=== PATIENT | male | born 1970 | race American Indian/Alaskan Native ===

== ENCOUNTER 2018-07-08 14:29 | Inpatient (IN) | payer MEDICAID, OTHER ==
[2018-07-08] MEDS ORDERED: Sodium Chloride 0.9% 1,000 ML IV SCH (14:45)
[2018-07-08 14:46] LABS: BASO # 0.03 K/mm3 (0.0-2.0); BASO % 0.2 % (0.0-3.0); EOS # 0.2 (0.0-0.7); EOS % 1.6 % (1.5-5.0); HEMOGLOBIN 13.5 g/dL (14.0-18.0); LYMPH # 5.9 (1.2-3.4); LYMPH % 48.2 % (22.0-35.0); MEAN CELL VOLUME 99.5 fl (80.0-105.0); MEAN CORPUSCULAR HEMOGLOBIN 31.4 pg (25.0-35.0); MEAN CORPUSCULAR HGB CONC 31.5 g/dl (31.0-37.0); MEAN PLATELET VOLUME 10.2 fl (7.0-11.0); MONO # 0.6 (0.1-0.6); MONO % 4.6 % (1.0-6.0); RBC 4.3 10^6/uL (3.5-6.1); RED CELL DISTRIBUTION WIDTH 12.4 % (11.5-14.5); WHITE BLOOD COUNT 12.3 10^3/uL (4.5-11.0)
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
[2018-07-08 14:54] LABS: VENOUS BLOOD GAS BASE EXCESS -19.2 mmol/L (0.0-2.0); VENOUS BLOOD GAS PO2 292 mm/Hg (30-55); VENOUS BLOOD PH 6.98 (7.32-7.43)
[2018-07-08] MEDS ORDERED: Sodium Chloride 0.9% 1,000 ML IV STA ×2 (14:54)
[2018-07-08 14:58] LABS: ALB/GLOB RATIO 1.4 (1.1-1.8); ALBUMIN 4.2 g/dL (3.0-4.8); ALT/SGPT 95 U/L (7-56); AST/SGOT 109 U/L (17-59); BLOOD UREA NITROGEN 14 mg/dL (7-21); CALCIUM 8.7 mg/dL (8.4-10.5); GFR NON-AFRICAN AMERICAN 50; INR 1.12; PARTIAL THROMBOPLASTIN TIME 36.3 Seconds (26.9-38.3); PROTHROMBIN TIME 12.4 SECONDS (9.4-12.5)
[2018-07-08] MEDS ORDERED: Iohexol 350 MG/100 ML VIAL ONE (15:05)
--- NOTE | 2018-07-08 15:05 | RAD ---
Date of service: 07/08/2018 HISTORY: cardiac arrest COMPARISON: No prior. FINDINGS: Endotracheal tube terminates 5 cm proximal to the lenora. LUNGS: The lungs are well inflated. There is confluent airspace disease in both perihilar regions and upper lobes. The lower lobes are relatively spared. PLEURA: No pleural effusions or pneumothorax. CARDIOVASCULAR: The heart is normal in size. No aortic atherosclerotic calcifications present. OSSEOUS STRUCTURES: Within normal limits for the patient's age. VISUALIZED UPPER ABDOMEN: Normal. OTHER FINDINGS: None. IMPRESSION: Endotracheal tube terminates 5 cm proximal to the lenora. Confluent airspace disease in the perihilar regions and both upper lobes most compatible with pulmonary edema.
[2018-07-08 15:08] LABS: TROPONIN I 0.06 ng/mL
--- NOTE | 2018-07-08 15:37 | CT ---
Date of service: 07/08/2018 PROCEDURE: CT HEAD WITHOUT CONTRAST. HISTORY: cardiac arrest COMPARISON: None available. TECHNIQUE: Axial computed tomography images were obtained through the head/brain without intravenous contrast. Radiation dose: Total exam DLP = 1648.94 mGy-cm. This CT exam was performed using one or more of the following dose reduction techniques: Automated exposure control, adjustment of the mA and/or kV according to patient size, and/or use of iterative reconstruction technique. FINDINGS: HEMORRHAGE: No intracranial hemorrhage. BRAIN: Examination is of suboptimal diagnostic quality due to extensive beam hardening artifacts and patient motion. There is no mass, mass effect or abnormal extra-axial fluid collection. There is no territorial infarction. The midline sagittal structures are normal. VENTRICLES: The ventricles are normal in size, shape and configuration. CALVARIUM: There is no calvarial fracture or extracranial soft tissue swelling. PARANASAL SINUSES: Predominantly clear. MASTOID AIR CELLS: Predominantly clear. OTHER FINDINGS: None. IMPRESSION: Suboptimal diagnostic quality due to extensive beam hardening artifacts patient motion. Allowing for this, no acute intracranial abnormality.
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
[2018-07-08 15:47] LABS: URINE BILIRUBIN NEGATIVE (NEGATIVE); URINE BLOOD LARGE (NEGATIVE); URINE GLUCOSE (UA) 100 mg/dL (NEGATIVE); URINE LEUKOCYTE ESTERASE NEGATIVE Leu/uL (NEGATIVE); URINE PROTEIN >=300 mg/dL (<30 mg/dL); URINE UROBILINOGEN 0.2 E.U./dL (<1 E.U./dL)
[2018-07-08 15:51] LABS: URINE APPEARANCE CLEAR (CLEAR); URINE COLOR YELLOW (YELLOW)
[2018-07-08] MEDS ORDERED: Cefepime IV 2 gm in NS 2 GM/100 ML BAG IVPB STA (15:51)
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
[2018-07-08 15:57] LABS: BARBITURATES, UR NEGATIVE (NEGATIVE); BENZODIAZEPINES, UR NEGATIVE (NEGATIVE); OPIATES, UR POSITIVE (NEGATIVE); PHENCYCLIDINE, UR NEGATIVE (NEGATIVE)
[2018-07-08 16:03] LABS: URINE BACTERIA LARGE /hpf; URINE EPITHELIAL CELLS 0 - 2 /hpf (0-5); URINE RBC TNTC /hpf (0-2)
--- NOTE | 2018-07-08 16:25 | RAD ---
Date of service: 07/08/2018 HISTORY: tube placement COMPARISON: 07/08/2018 at 2:42 p.m. FINDINGS: Endotracheal tube terminates in the mid trachea. The nasogastric tube terminates at the GE junction. LUNGS: The lungs are well inflated. There is interval mild improved aeration in the lungs. There is redemonstration of confluent perihilar airspace disease. PLEURA: No pleural effusions or pneumothorax. CARDIOVASCULAR: The heart is normal in size. No aortic atherosclerotic calcifications present. OSSEOUS STRUCTURES: Within normal limits for the patient's age. VISUALIZED UPPER ABDOMEN: Normal. OTHER FINDINGS: None. IMPRESSION: Nasogastric tube likely terminates at the GE junction. Further advancement is recommended. Endotracheal tube terminates in the mid trachea. Interval mild improved aeration in the lungs with persistent perihilar airspace disease which may represent pulmonary edema or aspiration pneumonia.
--- NOTE | 2018-07-08 16:31 | CP.PCM.HP ---
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 Evaluation PT INR APTT 69.1 H pCO2 pO2 HCO3 ABG pH ABG Total CO2 ABG O2 Saturation ABG Base Excess ABG Potassium VBG pH VBG pCO2 VBG HCO3 VBG Total CO2 VBG O2 Sat (Calc) VBG Base Excess VBG Potassium Glucose Lactate Mechanical Rate FiO2 Tidal Volume PEEP Crit Value Called To Crit Value Called By Blood Gas Notified Time Sodium 141 Potassium 3.2 L Chloride 99 Carbon Dioxide 31 Anion Gap 14 BUN 16 Creatinine 0.9 Est GFR ( Amer) > 60 Est GFR (Non-Af Amer) > 60 POC Glucose (mg/dL) 143 H Random Glucose 133 H Hemoglobin A1c Calcium 8.3 L Phosphorus 2.3 L Magnesium 2.3 H Total Bilirubin 0.6 AST 265 H D ALT 132 H Alkaline Phosphatase 92 Troponin I NT-Pro-B Natriuret Pep Total Protein 7.5 Albumin 4.2 Globulin 3.3 Albumin/Globulin Ratio 1.3 Triglycerides Cholesterol LDL Cholesterol Direct HDL Cholesterol Thyroxine (T4) TSH 3rd Generation Arterial Blood Potassium Venous Blood Potassium Urine Color Urine Appearance Urine pH Ur Specific [place] Urine Protein Urine Glucose (UA) Urine Ketones Urine Blood Urine Nitrate Urine Bilirubin Urine Urobilinogen Ur Leukocyte Esterase Urine RBC Urine WBC Ur Epithelial Cells Urine Bacteria Urine Opiates Screen Urine Methadone Screen Ur Barbiturates Screen Ur Phencyclidine Scrn Ur Amphetamines Screen U Benzodiazepines Scrn U Oth Cocaine Metabols U Cannabinoids Screen Alcohol, Quantitative Blood Type Blood Type Confirm Antibody Screen BBK History Checked 07/09/18 07/09/18 09:40 10:15 WBC 27.2 H* RBC 4.60 Hgb 14.5 Hct 43.2 MCV 93.9 MCH 31.5 MCHC 33.6 RDW 12.3 Plt Count 161 MPV 9.9 Neut % (Auto) 91.9 H Lymph % (Auto) 4.2 L [place] % (Auto) 3.9 Eos % (Auto) 0.0 L Baso % (Auto) 0.0 Lymph # (Auto) 1.2 [place] # (Auto) 1.1 H Eos # (Auto) 0.0 Baso # (Auto) 0.00 Absolute Neuts (auto) 24.96 H Neutrophils % (Manual) Band Neutrophils % Lymphocytes % (Manual) Monocytes % (Manual) Metamyelocytes % Platelet Evaluation PT INR APTT pCO2 39 pO2 121.0 H HCO3 26.5 ABG pH 7.44 ABG Total CO2 27.7 ABG O2 Saturation 100.1 H ABG Base Excess 2.3 ABG Potassium 3.1 L VBG pH VBG pCO2 VBG HCO3 VBG Total CO2 VBG O2 Sat (Calc) VBG Base Excess VBG Potassium Glucose 121 H Lactate 1.6 Mechanical Rate FiO2 80.0 Tidal Volume PEEP Crit Value Called To Crit Value Called By Blood Gas Notified Time Sodium 140.0 Potassium Chloride 105.0 Carbon Dioxide Anion Gap BUN Creatinine Est GFR ( Amer) Est GFR (Non-Af Amer) POC Glucose (mg/dL) Random Glucose Hemoglobin A1c Calcium Phosphorus Magnesium Total Bilirubin AST ALT Alkaline Phosphatase Troponin I NT-Pro-B Natriuret Pep Total Protein Albumin Globulin Albumin/Globulin Ratio Triglycerides Cholesterol LDL Cholesterol Direct HDL Cholesterol Thyroxine (T4) TSH 3rd Generation Arterial Blood Potassium 3.1 L Venous Blood Potassium Urine Color Urine Appearance Urine pH Ur Specific [place] Urine Protein Urine Glucose (UA) Urine Ketones Urine Blood Urine Nitrate Urine Bilirubin Urine Urobilinogen Ur Leukocyte Esterase Urine RBC Urine WBC Ur Epithelial Cells Urine Bacteria Urine Opiates Screen Urine Methadone Screen Ur Barbiturates Screen Ur Phencyclidine Scrn Ur Amphetamines Screen U Benzodiazepines Scrn U Oth Cocaine Metabols U Cannabinoids Screen Alcohol, Quantitative Blood Type Blood Type Confirm Antibody Screen BBK History Checked Attending/Attestation - Attestation I have personally seen and examined this patient.: Yes I have fully participated in the care of the patient.: Yes I have reviewed all pertinent clinical information: Yes Notes (Text): 07/09/18 12:09 Attending note; Patient seen and examined with resident and ER. Patient is currently intubated. History from the ER attending and chart review. Patient is a 48 year old male presented to the emergency department, with unknown past medical history brought in by ambulance after a witnessed cardiac arrest with ventricular fibrillation. 1. Status Post cardiac arrest; and is currently intubated. Patient had episodes of V. fib and cardioverted. Currently with sinus rhythm. Started on amiodarone drip. Case discussed with resident care aid in detail. Started on IV heparin drip. head CT is negative for acute findings. CT cervical spine is negative for acute fracture. CT abdomen and pelvis showed bilateral infiltrates suggesting aspiration pneumonitis and pleural effusion. Mildly distended colon noted. 2. VF/ Arrhythmia; currently patient is normal sinus rhythm. Continue amiodarone drip and heparin drip. 3. Status post intubation; weaning parameters as per ICU. 4. Urine drug screen is positive for opiates and cannabis. 5. leukocytosis; mostly secondary to aspiration pneumonia. Started on cefepime and vancomycin . Monitor closely. Cultures ordered. Monitor patient closely in ICU.
[2018-07-08] MEDS ORDERED: Vancomycin 1gm in NS 250ml 1 GM/250 ML BAG IVPB STA (16:34)
[2018-07-08] MEDS ORDERED: Amiodarone 150 mg/D5W 100 ml 150 MG/100 ML BAG IVPB ONE (16:42)
[2018-07-08] MEDS ORDERED: Heparin25000 units/250ml 1/2NS 25,000 UNITS/250 ML BAG IV SCH ×3 (16:45→23:17)
[2018-07-08 16:58] VITALS: BMI 25.7
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
[2018-07-08] MEDS: Amiodarone 360 mg/D5W 200 ml 360 MG/200 ML BAG IV SCH ×2 (17:33→23:30)
[2018-07-08] MEDS: Propofol 10 mg/ml 1,000 MG/100 ML VIAL IV PRN ×2 (17:34→21:36)
[2018-07-08 18:05] LABS: ARTERIAL BLOOD GAS O2 SAT 99.9 % (95-98); ARTERIAL BLOOD GAS PCO2 46 mm/Hg (35-45); ARTERIAL BLOOD GAS PH 7.36 (7.35-7.45); ARTERIAL BLOOD GAS TCO2 27.4 mmol.L (22-28)
[2018-07-08 18:38] LABS: HDL CHOLESTEROL 85 mg/dL (29-60)
[2018-07-08 18:48] LABS: LDL CHOLESTEROL 84 mg/dL (0-129)
[2018-07-08] MEDS ORDERED: Cisatracurium 200 MG in Sodium Chloride 0.9% 500 ML IV ONE ×2 (18:58→19:55)
[2018-07-08] MEDS ORDERED: White Petrolatum Ophth Oint (Puralube) OU PRN (18:58)
--- NOTE | 2018-07-08 20:19 | CARD ---
APPROVED REPORT Date of service: 07/08/2018 EKG Measurement Heart [id number] <Conclusion> Normal sinus rhythm Intraventricular conduction delay of RBBB type Nonspecific T wave abnormality Abnormal ECG
--- NOTE | 2018-07-08 20:27 | CARD ---
APPROVED REPORT Date of service: 07/08/2018 EKG Measurement Heart [id number] [id number] <Conclusion> Low atrial or junctional rhythm Left axis deviation Nonspecific T wave abnormality Prolonged QT Abnormal ECG
[2018-07-08] MEDS: Fentanyl 1000mcg/100ml NS 1,000 MCG/100 ML BAG IV PRN (21:38)
[2018-07-08 22:11] LABS: BASO # 0.01 K/mm3 (0.0-2.0); HEMOGLOBIN 14.4 g/dL (14.0-18.0); LYMPH # 0.7 (1.2-3.4); LYMPH % 2.8 % (22.0-35.0); MEAN CELL VOLUME 94.5 fl (80.0-105.0); MEAN CORPUSCULAR HEMOGLOBIN 31.6 pg (25.0-35.0); MEAN CORPUSCULAR HGB CONC 33.4 g/dl (31.0-37.0); MONO # 1.2 (0.1-0.6); MONO % 4.6 % (1.0-6.0); PLATELET COUNT 185 10^3/uL (120.0-450.0); RBC 4.56 10^6/uL (3.5-6.1); RED CELL DISTRIBUTION WIDTH 12.3 % (11.5-14.5)
[2018-07-08 22:14] LABS: WHITE BLOOD COUNT 25.4 10^3/uL (4.5-11.0)
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
[2018-07-08 22:28] LABS: BAND 4 % (0-2); LYMPHOCYTE 1 % (22.0-35.0); METAMYELOCYTE 1 %; MONOCYTE 1 % (1.0-6.0); NEUTROPHIL 93 % (50.0-70.0); VENOUS BLOOD GAS BASE EXCESS 0.6 mmol/L (0.0-2.0); VENOUS BLOOD GAS PO2 53 mm/Hg (30-55); VENOUS BLOOD PH 7.33 (7.32-7.43)
[2018-07-08 22:29] LABS: PLATELET ESTIMATE NORMAL (NORMAL)
[2018-07-08 22:34] LABS: ALB/GLOB RATIO 1.3 (1.1-1.8); ALBUMIN 4.1 g/dL (3.0-4.8); ALT/SGPT 119 U/L (7-56); AST/SGOT 214 U/L (17-59); BLOOD UREA NITROGEN 16 mg/dL (7-21); GFR NON-AFRICAN AMERICAN > 60
[2018-07-08] MEDS: Heparin25000 units/250ml 1/2NS 25,000 UNITS/250 ML BAG IV SCH (22:35)
[2018-07-08 22:52] LABS: TROPONIN I 9.05 ng/mL
[2018-07-08] MEDS: Cefepime IV 2 gm in NS 2 GM/100 ML BAG IVPB SCH (23:30)
[2018-07-08 23:59] LABS: ARTERIAL BLOOD GAS HCO3 28.5 mmol/L (21-28); ARTERIAL BLOOD GAS O2 SAT 99.6 % (95-98); ARTERIAL BLOOD GAS PCO2 45 mm/Hg (35-45); ARTERIAL BLOOD GAS PH 7.41 (7.35-7.45); ARTERIAL BLOOD GAS TCO2 29.9 mmol.L (22-28)
[2018-07-09 01:48] LABS: VENOUS BLOOD GAS BASE EXCESS 1.6 mmol/L (0.0-2.0); VENOUS BLOOD GAS PO2 45 mm/Hg (30-55)
[2018-07-09] MEDS: Amiodarone 360 mg/D5W 200 ml 360 MG/200 ML BAG IV SCH ×2 (05:20→17:56)
[2018-07-09] MEDS: Propofol 10 mg/ml 1,000 MG/100 ML VIAL IV PRN ×2 (05:24→11:43)
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
[2018-07-09 07:50] LABS: ALB/GLOB RATIO 1.3 (1.1-1.8); ALBUMIN 4.2 g/dL (3.0-4.8); ALT/SGPT 132 U/L (7-56); AST/SGOT 265 U/L (17-59); BLOOD UREA NITROGEN 16 mg/dL (7-21); CALCIUM 8.3 mg/dL (8.4-10.5); GFR NON-AFRICAN AMERICAN > 60
[2018-07-09] MEDS ORDERED: Lubricant Eye Drops UD OU PRN (09:09)
[2018-07-09] MEDS ORDERED: Potassium Phosphate 15 MMOLE in Sodium Chloride 0.9% 250 ML IVPB ONE (09:15)
--- NOTE | 2018-07-09 09:36 | RAD ---
Date of service: 07/09/2018 HISTORY: intubated COMPARISON: 07/08/2018 TECHNIQUE: 1 view obtained. FINDINGS: LUNGS: There is dense consolidation in the right upper lobe consistent with pneumonia or lobar atelectasis. PLEURA: No significant pleural effusion identified, no pneumothorax apparent. CARDIOVASCULAR: No aortic atherosclerotic calcification present. Mild cardiomegaly no pulmonary vascular congestion. OSSEOUS STRUCTURES: No significant abnormalities. VISUALIZED UPPER ABDOMEN: Normal. OTHER FINDINGS: Endotracheal tube and nasogastric tube in satisfactory position IMPRESSION: There is dense consolidation in the right upper lobe consistent with pneumonia or lobar atelectasis.
[2018-07-09] MEDS: Cefepime IV 2 gm in NS 2 GM/100 ML BAG IVPB SCH ×2 (09:44→22:09)
[2018-07-09 09:46] LABS: ARTERIAL BLOOD GAS HCO3 26.5 mmol/L (21-28); ARTERIAL BLOOD GAS O2 SAT 100.1 % (95-98); ARTERIAL BLOOD GAS PCO2 39 mm/Hg (35-45); ARTERIAL BLOOD GAS PH 7.44 (7.35-7.45); ARTERIAL BLOOD GAS TCO2 27.7 mmol.L (22-28)
--- NOTE | 2018-07-09 09:49 | CP.CCUPN ---
<Parrish Garibay - Last Filed: 07/09/18 12:16> CCU Subjective - Physician Review Subjective (Free Text): Parrish Garibay DO, PGY-1 MICU Progress Note for Dr. Emily Boone Patient was seen and examined at bedside this AM. He remains intubated, sedated on propofol and fentanyl drips. Hypothermia protocol was initiated immediately upon arrival to MICU yesterday evening and Temp has been maintained at 91-92 overnight. He remains on amiodarone and heparin drips. CCU Objective - Vital Signs / Intake & Output Vital Signs (Last 4 hours): Vital Signs Temp Pulse BP Pulse Ox 07/09/18 09:10 91.9 F L 60 99 07/09/18 09:00 91.8 F L 62 134/100 H 100 07/09/18 08:50 91.8 F L 59 L 100 07/09/18 08:45 91.8 F L 61 132/81 100 07/09/18 08:40 91.6 F L 60 100 07/09/18 08:30 91.6 F L 59 L 141/65 99 07/09/18 08:20 91.6 F L 60 100 07/09/18 08:15 91.6 F L 60 134/99 H 99 07/09/18 08:10 91.6 F L 64 100 07/09/18 08:00 91.6 F L 57 L 133/99 H 100 07/09/18 07:50 91.4 F L 58 L 100 07/09/18 07:45 91.4 F L 60 134/90 99 07/09/18 07:40 91.4 F L 59 L 99 07/09/18 07:30 91.4 F L 60 130/94 H 100 07/09/18 07:20 91.4 F L 59 L 100 07/09/18 07:15 91.4 F L 66 143/106 H 100 07/09/18 07:10 91.4 F L 61 100 07/09/18 07:00 91.2 F L 62 143/109 H 100 07/09/18 06:50 91.2 F L 60 99 07/09/18 06:45 91.2 F L 64 143/112 H 100 07/09/18 06:40 91.2 F L 61 100 07/09/18 06:30 91.2 F L 61 139/108 H 100 07/09/18 06:20 91.2 F L 60 100 07/09/18 06:15 91.2 F L 56 L 142/106 H 100 07/09/18 06:10 91.2 F L 58 L 100 07/09/18 06:00 91.2 F L 64 139/105 H 100 07/09/18 05:50 91.2 F L 69 98 Intake and Output (Last 8hrs): Intake & Output 07/08/18 07/09/18 07/09/18 22:59 06:59 14:59 Intake Total 470 1500 80 Output Total 2750 600 Balance -2280 900 80 Weight 168 lb 12.8 oz 168 lb Intake: IV 470 1500 80 Right Hand 370 1350 Output: Gastric Amount 600 Right Nares 600 Urine 2750 Urethral (Parr) 2750 Stool 0 Other: # Bowel Movements 2 0 - Physical Exam Physical Exam Limitations: Positive for: Clinical Condition Head: Positive for: Atraumatic, Normocephalic Pupils: Positive for: Sluggish, Pinpoint Extroacular Muscles: Positive for: EOMI Mouth: Positive for: Moist Mucous Membranes Nose (External): Positive for: Atraumatic Neck: Negative for: Lymphadenopathy, Bruit Respiratory/Chest: Positive for: Decreased Breath Sounds (RUL), Rales (coarse breath sounds and crackles over RUL), Rhonchi, Other (on ventilator, breath sounds auscultated b/l). Negative for: Wheezes Cardiovascular: Positive for: Regular Rate and Rhythm, Normal S1, S2. Negative for: Murmurs, Rub, Gallop Abdomen: Negative for: Distention, Guarding Genitourinary Male: Positive for: Normal External Genitalia, Circumcised Penis, Other (parr in place) Upper Extremity: Positive for: Capillary Refill < 2s. Negative for: Cyanosis, Edema, Erythema Lower Extremity: Positive for: Capillary Refill < 2 s. Negative for: Edema Neurological: Positive for: Other (GCS 4, opens eyes to painful stimuli but does not otherwise move) Skin: Positive for: Warm, Dry Psychiatric: Positive for: Other (intubated, sedated, on nimbex) - Medications Active Medications: Active Medications Generic Name Dose Route Start Last Admin Trade Name Freq PRN Reason Stop Dose Admin Artificial Tears 1 appl 07/08/18 18:58 Puralube Opht Oint OU Q4H PRN Dry eyes Artificial Tears 0.3 ml 07/09/18 09:09 Refresh Opth Soln OU Q4H PRN Dry eyes Famotidine 20 mg 07/09/18 10:00 07/09/18 09:43 Pepcid IVP 20 mg DAILY RITA Administration Fentanyl Citrate 1,000 mcg in 100 mls @ 2 mls/hr 07/08/18 16:37 07/09/18 09:02 Fentanyl Citrate/Sodium Chloride 1 Mg/100 Ml IV 60 mcg/hr .Q24H PRN 6 mls/hr TITRATE PER MD ORDER Titration Protocol 20 MCG/HR Propofol 1,000 mg in 100 mls @ 2.245 mls/hr 07/08/18 16:37 07/09/18 05:24 Diprivan IV 35 mcg/kg/min .Q24H PRN 15.717 mls/hr TITRATE PER MD ORDER Administration Protocol 5 MCG/KG/MIN Cefepime HCl 2 gm in 100 mls @ 100 mls/hr 07/08/18 23:00 07/09/18 09:44 Maxipime 2gm IVPB 07/13/18 23:01 100 mls/hr Q12 RITA Administration Protocol Heparin Sodium/Sodium Chloride 25,000 units in 250 mls @ 8.981 mls/hr 07/08/18 23:37 07/08/18 23:25 Heparin 23785 Units/250ml 1/2 Normal Saline IV 9 units/kg/hr .Q24H RITA 6.736 mls/hr Titration Protocol 12 UNITS/KG/HR Amiodarone HCl/Dextrose 360 mg in 200 mls @ 16.667 mls/hr 07/08/18 23:30 07/08/18 23:30 Nexterone 360 Mg In D5w 200 Ml (Premix) IV 16.667 mls/hr .Q12H RITA Administration Protocol 0.5 MG/MIN Cisatracurium Besylate 200 mg/ 200 mls @ 2.3 mls/hr 07/09/18 07:07 07/09/18 07:36 Sodium Chloride IV 0.5 mcg/kg/min .Q24H PRN 2.3 mls/hr TITRATE PER MD ORDER Administration Protocol 0.5 MCG/KG/MIN Potassium Phosphate 15 mmole/ 255 mls @ 42.5 mls/hr 07/09/18 09:15 Sodium Chloride IVPB 07/09/18 15:14 ONCE ONE - Patient Studies Lab Studies: Lab Studies 07/09/18 07/09/18 07/09/18 Range/Units 05:42 05:20 05:20 WBC (4.5-11.0) 10^3/uL RBC (3.5-6.1) 10^6/uL Hgb (14.0-18.0) g/dL Hct (42.0-52.0) % MCV (80.0-105.0) fl MCH (25.0-35.0) pg MCHC (31.0-37.0) g/dl RDW (11.5-14.5) % Plt Count (120.0-450.0) 10^3/uL MPV (7.0-11.0) fl Neut % (Auto) (50.0-68.0) % Lymph % (Auto) (22.0-35.0) % [place]a % (Auto) (1.0-6.0) % Eos % (Auto) (1.5-5.0) % Baso % (Auto) (0.0-3.0) % Lymph # (Auto) (1.2-3.4) [place] # (Auto) (0.1-0.6) Eos # (Auto) (0.0-0.7) Baso # (Auto) (0.0-2.0) K/mm3 Absolute Neuts (auto) (1.4-6.5) Neutrophils % (Manual) (50.0-70.0) % Band Neutrophils % (0-2) % Lymphocytes % (Manual) (22.0-35.0) % Monocytes % (Manual) (1.0-6.0) % Metamyelocytes % % Platelet Evaluation (NORMAL) PT (9.4-12.5) SECONDS INR APTT 69.1 H (26.9-38.3) Seconds pCO2 (35-45) mm/Hg pO2 (30-55) mm/Hg HCO3 (21-28) mmol/L ABG pH (7.35-7.45) ABG Total CO2 (22-28) mmol.L ABG O2 Saturation (95-98) % ABG Base Excess (-2.0-3.0) mmol/L ABG Potassium (3.6-5.2) mmol/L VBG pH (7.32-7.43) VBG pCO2 (40-60) VBG HCO3 (21-28) mmol/l VBG Total CO2 (22-28) mmol.L VBG O2 Sat (Calc) (40-65) % VBG Base Excess (0.0-2.0) mmol/L VBG Potassium (3.6-5.2) mmol/L Glucose (75-110) mg/dl Lactate (0.7-2.1) mmol/L Mechanical Rate FiO2 % Tidal Volume PEEP Crit Value Called To Crit Value Called By Blood Gas Notified Time Sodium 141 (132-148) mmol/L Potassium 3.2 L (3.6-5.0) mmol/L Chloride 99 (98-107) mmol/L Carbon Dioxide 31 (21-33) mmol/L Anion Gap 14 (10-20) BUN 16 (7-21) mg/dL Creatinine 0.9 (0.8-1.5) mg/dl Est GFR ( Amer) > 60 Est GFR (Non-Af Amer) > 60 POC Glucose (mg/dL) 143 H (65-110) mg/dL Random Glucose 133 H (70-110) mg/dL Hemoglobin A1c (4.2-6.5) % Calcium 8.3 L (8.4-10.5) mg/dL Phosphorus 2.3 L (2.5-4.5) mg/dL Magnesium 2.3 H (1.7-2.2) mg/dL Total Bilirubin 0.6 (0.2-1.3) mg/dL AST 265 H D (17-59) U/L ALT 132 H (7-56) U/L Alkaline Phosphatase 92 (38-126) U/L Troponin I ng/mL NT-Pro-B Natriuret Pep (0-450) pg/mL Total Protein 7.5 (5.8-8.3) g/dL Albumin 4.2 (3.0-4.8) g/dL Globulin 3.3 gm/dL Albumin/Globulin Ratio 1.3 (1.1-1.8) Triglycerides (35-160) mg/dL Cholesterol (130-200) mg/dL LDL Cholesterol Direct (0-129) mg/dL HDL Cholesterol (29-60) mg/dL Thyroxine (T4) (5.5-11.0) ug/dL TSH 3rd Generation (0.46-4.68) mIU/mL Arterial Blood Potassium (3.6-5.2) mmol/L Venous Blood Potassium (3.6-5.2) mmol/L Urine Color (YELLOW) Urine Appearance (CLEAR) Urine pH (4.7-8.0) Ur Specific [place] (1.005-1.035) Urine Protein (<30 mg/dL) mg/dL Urine Glucose (UA) (NEGATIVE) mg/dL Urine Ketones (NEGATIVE) mg/dL Urine Blood (NEGATIVE) Urine Nitrate (NEGATIVE) Urine Bilirubin (NEGATIVE) Urine Urobilinogen (<1 E.U./dL) E.U./dL Ur Leukocyte Esterase (NEGATIVE) Alvino/uL Urine RBC (0-2) /hpf Urine WBC (0-6) /hpf Ur Epithelial Cells (0-5) /hpf Urine Bacteria (NONE) /hpf Urine Opiates Screen (NEGATIVE) Urine Methadone Screen (NEGATIVE) Ur Barbiturates Screen (NEGATIVE) Ur Phencyclidine Scrn (NEGATIVE) Ur Amphetamines Screen (NEGATIVE) U Benzodiazepines Scrn (NEGATIVE) U Oth Cocaine Metabols (NEGATIVE) U Cannabinoids Screen (NEGATIVE) Alcohol, Quantitative (0-10) mg/dL Blood Type Blood Type Confirm Antibody Screen BBK History Checked 07/09/18 07/09/18 07/08/18 Range/Units 01:30 01:30 23:48 WBC (4.5-11.0) 10^3/uL RBC (3.5-6.1) 10^6/uL Hgb (14.0-18.0) g/dL Hct (42.0-52.0) % MCV (80.0-105.0) fl MCH (25.0-35.0) pg MCHC (31.0-37.0) g/dl RDW (11.5-14.5) % Plt Count (120.0-450.0) 10^3/uL MPV (7.0-11.0) fl Neut % (Auto) (50.0-68.0) % Lymph % (Auto) (22.0-35.0) % Lea % (Auto) (1.0-6.0) % Eos % (Auto) (1.5-5.0) % Baso % (Auto) (0.0-3.0) % Lymph # (Auto) (1.2-3.4) [place] # (Auto) (0.1-0.6) Eos # (Auto) (0.0-0.7) Baso # (Auto) (0.0-2.0) K/mm3 Absolute Neuts (auto) (1.4-6.5) Neutrophils % (Manual) (50.0-70.0) % Band Neutrophils % (0-2) % Lymphocytes % (Manual) (22.0-35.0) % Monocytes % (Manual) (1.0-6.0) % Metamyelocytes % % Platelet Evaluation (NORMAL) PT (9.4-12.5) SECONDS INR APTT (26.9-38.3) Seconds pCO2 45 (35-45) mm/Hg pO2 45 101.0 H (30-55) mm/Hg HCO3 28.5 H (21-28) mmol/L ABG pH 7.41 (7.35-7.45) ABG Total CO2 29.9 H (22-28) mmol.L ABG O2 Saturation 99.6 H (95-98) % ABG Base Excess 3.2 H (-2.0-3.0) mmol/L ABG Potassium 2.6 L (3.6-5.2) mmol/L VBG pH 7.30 L (7.32-7.43) VBG pCO2 60.0 (40-60) VBG HCO3 29.5 H (21-28) mmol/l VBG Total CO2 31.3 H (22-28) mmol.L VBG O2 Sat (Calc) 76.0 H (40-65) % VBG Base Excess 1.6 (0.0-2.0) mmol/L VBG Potassium 3.0 L (3.6-5.2) mmol/L Glucose 150 H 177 H (75-110) mg/dl Lactate 5.1 H* 2.6 H (0.7-2.1) mmol/L Mechanical Rate FiO2 21.0 80.0 % Tidal Volume PEEP Crit Value Called To Madeline bernard rn icu Dr. cornelius Crit Value Called By Hui ge Blood Gas Notified Time 148 2358 Sodium 144.0 144.0 (132-148) mmol/L Potassium (3.6-5.0) mmol/L Chloride 101.0 104.0 (98-107) mmol/L Carbon Dioxide (21-33) mmol/L Anion Gap (10-20) BUN (7-21) mg/dL Creatinine (0.8-1.5) mg/dl Est GFR ( Amer) Est GFR (Non-Af Amer) POC Glucose (mg/dL) (65-110) mg/dL Random Glucose (70-110) mg/dL Hemoglobin A1c (4.2-6.5) % Calcium (8.4-10.5) mg/dL Phosphorus (2.5-4.5) mg/dL Magnesium (1.7-2.2) mg/dL Total Bilirubin (0.2-1.3) mg/dL AST (17-59) U/L ALT (7-56) U/L Alkaline Phosphatase (38-126) U/L Troponin I 7.60 H* ng/mL NT-Pro-B Natriuret Pep (0-450) pg/mL Total Protein (5.8-8.3) g/dL Albumin (3.0-4.8) g/dL Globulin gm/dL Albumin/Globulin Ratio (1.1-1.8) Triglycerides (35-160) mg/dL Cholesterol (130-200) mg/dL LDL Cholesterol Direct (0-129) mg/dL HDL Cholesterol (29-60) mg/dL Thyroxine (T4) (5.5-11.0) ug/dL TSH 3rd Generation (0.46-4.68) mIU/mL Arterial Blood Potassium 2.6 L (3.6-5.2) mmol/L Venous Blood Potassium 3.0 L (3.6-5.2) mmol/L Urine Color (YELLOW) Urine Appearance (CLEAR) Urine pH (4.7-8.0) Ur Specific [place] (1.005-1.035) Urine Protein (<30 mg/dL) mg/dL Urine Glucose (UA) (NEGATIVE) mg/dL Urine Ketones (NEGATIVE) mg/dL Urine Blood (NEGATIVE) Urine Nitrate (NEGATIVE) Urine Bilirubin (NEGATIVE) Urine Urobilinogen (<1 E.U./dL) E.U./dL Ur Leukocyte Esterase (NEGATIVE) Alvino/uL Urine RBC (0-2) /hpf Urine WBC (0-6) /hpf Ur Epithelial Cells (0-5) /hpf Urine Bacteria (NONE) /hpf Urine Opiates Screen (NEGATIVE) Urine Methadone Screen (NEGATIVE) Ur Barbiturates Screen (NEGATIVE) Ur Phencyclidine Scrn (NEGATIVE) Ur Amphetamines Screen (NEGATIVE) U Benzodiazepines Scrn (NEGATIVE) U Oth Cocaine Metabols (NEGATIVE) U Cannabinoids Screen (NEGATIVE) Alcohol, Quantitative (0-10) mg/dL Blood Type Blood Type Confirm Antibody Screen BBK History Checked 07/08/18 07/08/18 07/08/18 Range/Units 23:21 22:03 22:03 WBC 25.4 H* D (4.5-11.0) 10^3/uL RBC 4.56 (3.5-6.1) 10^6/uL Hgb 14.4 (14.0-18.0) g/dL Hct 43.1 (42.0-52.0) % MCV 94.5 D (80.0-105.0) fl MCH 31.6 (25.0-35.0) pg MCHC 33.4 (31.0-37.0) g/dl RDW 12.3 (11.5-14.5) % Plt Count 185 (120.0-450.0) 10^3/uL MPV 10.0 (7.0-11.0) fl Neut % (Auto) 92.6 H (50.0-68.0) % Lymph % (Auto) 2.8 L (22.0-35.0) % Lea % (Auto) 4.6 (1.0-6.0) % Eos % (Auto) 0.0 L (1.5-5.0) % Baso % (Auto) 0.0 (0.0-3.0) % Lymph # (Auto) 0.7 L (1.2-3.4) Lea # (Auto) 1.2 H (0.1-0.6) Eos # (Auto) 0.0 (0.0-0.7) Baso # (Auto) 0.01 (0.0-2.0) K/mm3 Absolute Neuts (auto) 23.48 H (1.4-6.5) Neutrophils % (Manual) 93 H (50.0-70.0) % Band Neutrophils % 4 H (0-2) % Lymphocytes % (Manual) 1 L (22.0-35.0) % Monocytes % (Manual) 1 (1.0-6.0) % Metamyelocytes % 1 % Platelet Evaluation Normal (NORMAL) PT (9.4-12.5) SECONDS INR APTT (26.9-38.3) Seconds pCO2 (35-45) mm/Hg pO2 (30-55) mm/Hg HCO3 (21-28) mmol/L ABG pH (7.35-7.45) ABG Total CO2 (22-28) mmol.L ABG O2 Saturation (95-98) % ABG Base Excess (-2.0-3.0) mmol/L ABG Potassium (3.6-5.2) mmol/L VBG pH (7.32-7.43) VBG pCO2 (40-60) VBG HCO3 (21-28) mmol/l VBG Total CO2 (22-28) mmol.L VBG O2 Sat (Calc) (40-65) % VBG Base Excess (0.0-2.0) mmol/L VBG Potassium (3.6-5.2) mmol/L Glucose (75-110) mg/dl Lactate (0.7-2.1) mmol/L Mechanical Rate FiO2 % Tidal Volume PEEP Crit Value Called To Crit Value Called By Blood Gas Notified Time Sodium 141 (132-148) mmol/L Potassium 2.9 L* D (3.6-5.0) mmol/L Chloride 104 (98-107) mmol/L Carbon Dioxide 28 (21-33) mmol/L Anion Gap 12 (10-20) BUN 16 (7-21) mg/dL Creatinine 0.9 (0.8-1.5) mg/dl Est GFR ( Amer) > 60 Est GFR (Non-Af Amer) > 60 POC Glucose (mg/dL) 198 H (65-110) mg/dL Random Glucose 202 H (70-110) mg/dL Hemoglobin A1c (4.2-6.5) % Calcium 8.0 L (8.4-10.5) mg/dL Phosphorus 3.1 (2.5-4.5) mg/dL Magnesium 2.3 H (1.7-2.2) mg/dL Total Bilirubin 0.5 (0.2-1.3) mg/dL AST 214 H D (17-59) U/L ALT 119 H (7-56) U/L Alkaline Phosphatase 101 (38-126) U/L Troponin I 9.05 H* D ng/mL NT-Pro-B Natriuret Pep (0-450) pg/mL Total Protein 7.1 (5.8-8.3) g/dL Albumin 4.1 (3.0-4.8) g/dL Globulin 3.1 gm/dL Albumin/Globulin Ratio 1.3 (1.1-1.8) Triglycerides (35-160) mg/dL Cholesterol (130-200) mg/dL LDL Cholesterol Direct (0-129) mg/dL HDL Cholesterol (29-60) mg/dL Thyroxine (T4) (5.5-11.0) ug/dL TSH 3rd Generation (0.46-4.68) mIU/mL Arterial Blood Potassium (3.6-5.2) mmol/L Venous Blood Potassium (3.6-5.2) mmol/L Urine Color (YELLOW) Urine Appearance (CLEAR) Urine pH (4.7-8.0) Ur Specific [place] (1.005-1.035) Urine Protein (<30 mg/dL) mg/dL Urine Glucose (UA) (NEGATIVE) mg/dL Urine Ketones (NEGATIVE) mg/dL Urine Blood (NEGATIVE) Urine Nitrate (NEGATIVE) Urine Bilirubin (NEGATIVE) Urine Urobilinogen (<1 E.U./dL) E.U./dL Ur Leukocyte Esterase (NEGATIVE) Alvino/uL Urine RBC (0-2) /hpf Urine WBC (0-6) /hpf Ur Epithelial Cells (0-5) /hpf Urine Bacteria (NONE) /hpf Urine Opiates Screen (NEGATIVE) Urine Methadone Screen (NEGATIVE) Ur Barbiturates Screen (NEGATIVE) Ur Phencyclidine Scrn (NEGATIVE) Ur Amphetamines Screen (NEGATIVE) U Benzodiazepines Scrn (NEGATIVE) U Oth Cocaine Metabols (NEGATIVE) U Cannabinoids Screen (NEGATIVE) Alcohol, Quantitative (0-10) mg/dL Blood Type Blood Type Confirm Antibody Screen BBK History Checked 07/08/18 07/08/18 07/08/18 Range/Units 22:03 22:03 18:20 WBC (4.5-11.0) 10^3/uL RBC (3.5-6.1) 10^6/uL Hgb (14.0-18.0) g/dL Hct (42.0-52.0) % MCV (80.0-105.0) fl MCH (25.0-35.0) pg MCHC (31.0-37.0) g/dl RDW (11.5-14.5) % Plt Count (120.0-450.0) 10^3/uL MPV (7.0-11.0) fl Neut % (Auto) (50.0-68.0) % Lymph % (Auto) (22.0-35.0) % [place] % (Auto) (1.0-6.0) % Eos % (Auto) (1.5-5.0) % Baso % (Auto) (0.0-3.0) % Lymph # (Auto) (1.2-3.4) [place] # (Auto) (0.1-0.6) Eos # (Auto) (0.0-0.7) Baso # (Auto) (0.0-2.0) K/mm3 Absolute Neuts (auto) (1.4-6.5) Neutrophils % (Manual) (50.0-70.0) % Band Neutrophils % (0-2) % Lymphocytes % (Manual) (22.0-35.0) % Monocytes % (Manual) (1.0-6.0) % Metamyelocytes % % Platelet Evaluation (NORMAL) PT (9.4-12.5) SECONDS INR APTT 140.2 H* (26.9-38.3) Seconds pCO2 (35-45) mm/Hg pO2 53 (30-55) mm/Hg HCO3 (21-28) mmol/L ABG pH (7.35-7.45) ABG Total CO2 (22-28) mmol.L ABG O2 Saturation (95-98) % ABG Base Excess (-2.0-3.0) mmol/L ABG Potassium (3.6-5.2) mmol/L VBG pH 7.33 (7.32-7.43) VBG pCO2 52.0 (40-60) VBG HCO3 27.4 (21-28) mmol/l VBG Total CO2 29.0 H (22-28) mmol.L VBG O2 Sat (Calc) 88.3 H (40-65) % VBG Base Excess 0.6 (0.0-2.0) mmol/L VBG Potassium 2.8 L (3.6-5.2) mmol/L Glucose 208 H (75-110) mg/dl Lactate 3.7 H (0.7-2.1) mmol/L Mechanical Rate FiO2 21.0 % Tidal Volume PEEP Crit Value Called To Madeline bernard Crit Value Called By [facility] Blood Gas Notified Time 2224 Sodium 144.0 (132-148) mmol/L Potassium (3.6-5.0) mmol/L Chloride 104.0 (98-107) mmol/L Carbon Dioxide (21-33) mmol/L Anion Gap (10-20) BUN (7-21) mg/dL Creatinine (0.8-1.5) mg/dl Est GFR ( Amer) Est GFR (Non-Af Amer) POC Glucose (mg/dL) (65-110) mg/dL Random Glucose (70-110) mg/dL Hemoglobin A1c 5.0 (4.2-6.5) % Calcium (8.4-10.5) mg/dL Phosphorus (2.5-4.5) mg/dL Magnesium (1.7-2.2) mg/dL Total Bilirubin (0.2-1.3) mg/dL AST (17-59) U/L ALT (7-56) U/L Alkaline Phosphatase (38-126) U/L Troponin I ng/mL NT-Pro-B Natriuret Pep (0-450) pg/mL Total Protein (5.8-8.3) g/dL Albumin (3.0-4.8) g/dL Globulin gm/dL Albumin/Globulin Ratio (1.1-1.8) Triglycerides (35-160) mg/dL Cholesterol (130-200) mg/dL LDL Cholesterol Direct (0-129) mg/dL HDL Cholesterol (29-60) mg/dL Thyroxine (T4) (5.5-11.0) ug/dL TSH 3rd Generation (0.46-4.68) mIU/mL Arterial Blood Potassium (3.6-5.2) mmol/L Venous Blood Potassium 2.8 L (3.6-5.2) mmol/L Urine Color (YELLOW) Urine Appearance (CLEAR) Urine pH (4.7-8.0) Ur Specific [place] (1.005-1.035) Urine Protein (<30 mg/dL) mg/dL Urine Glucose (UA) (NEGATIVE) mg/dL Urine Ketones (NEGATIVE) mg/dL Urine Blood (NEGATIVE) Urine Nitrate (NEGATIVE) Urine Bilirubin (NEGATIVE) Urine Urobilinogen (<1 E.U./dL) E.U./dL Ur Leukocyte Esterase (NEGATIVE) Alvino/uL Urine RBC (0-2) /hpf Urine WBC (0-6) /hpf Ur Epithelial Cells (0-5) /hpf Urine Bacteria (NONE) /hpf Urine Opiates Screen (NEGATIVE) Urine Methadone Screen (NEGATIVE) Ur Barbiturates Screen (NEGATIVE) Ur Phencyclidine Scrn (NEGATIVE) Ur Amphetamines Screen (NEGATIVE) U Benzodiazepines Scrn (NEGATIVE) U Oth Cocaine Metabols (NEGATIVE) U Cannabinoids Screen (NEGATIVE) Alcohol, Quantitative (0-10) mg/dL Blood Type Blood Type Confirm Antibody Screen BBK History Checked 07/08/18 07/08/18 07/08/18 Range/Units 18:02 17:31 16:00 WBC (4.5-11.0) 10^3/uL RBC (3.5-6.1) 10^6/uL Hgb (14.0-18.0) g/dL Hct (42.0-52.0) % MCV (80.0-105.0) fl MCH (25.0-35.0) pg MCHC (31.0-37.0) g/dl RDW (11.5-14.5) % Plt Count (120.0-450.0) 10^3/uL MPV (7.0-11.0) fl Neut % (Auto) (50.0-68.0) % Lymph % (Auto) (22.0-35.0) % [place] % (Auto) (1.0-6.0) % Eos % (Auto) (1.5-5.0) % Baso % (Auto) (0.0-3.0) % Lymph # (Auto) (1.2-3.4) [place] # (Auto) (0.1-0.6) Eos # (Auto) (0.0-0.7) Baso # (Auto) (0.0-2.0) K/mm3 Absolute Neuts (auto) (1.4-6.5) Neutrophils % (Manual) (50.0-70.0) % Band Neutrophils % (0-2) % Lymphocytes % (Manual) (22.0-35.0) % Monocytes % (Manual) (1.0-6.0) % Metamyelocytes % % Platelet Evaluation (NORMAL) PT (9.4-12.5) SECONDS INR APTT (26.9-38.3) Seconds pCO2 46 H (35-45) mm/Hg pO2 136.0 H (30-55) mm/Hg HCO3 26.0 (21-28) mmol/L ABG pH 7.36 (7.35-7.45) ABG Total CO2 27.4 (22-28) mmol.L ABG O2 Saturation 99.9 H (95-98) % ABG Base Excess 0.1 (-2.0-3.0) mmol/L ABG Potassium 3.3 L (3.6-5.2) mmol/L VBG pH (7.32-7.43) VBG pCO2 (40-60) VBG HCO3 (21-28) mmol/l VBG Total CO2 (22-28) mmol.L VBG O2 Sat (Calc) (40-65) % VBG Base Excess (0.0-2.0) mmol/L VBG Potassium (3.6-5.2) mmol/L Glucose 161 H (75-110) mg/dl Lactate 2.0 (0.7-2.1) mmol/L Mechanical Rate 20 FiO2 100.0 % Tidal Volume 450 PEEP 5 Crit Value Called To Crit Value Called By Blood Gas Notified Time Sodium 143.0 (132-148) mmol/L Potassium (3.6-5.0) mmol/L Chloride 107.0 (98-107) mmol/L Carbon Dioxide (21-33) mmol/L Anion Gap (10-20) BUN (7-21) mg/dL Creatinine (0.8-1.5) mg/dl Est GFR ( Amer) Est GFR (Non-Af Amer) POC Glucose (mg/dL) 157 H (65-110) mg/dL Random Glucose (70-110) mg/dL Hemoglobin A1c (4.2-6.5) % Calcium (8.4-10.5) mg/dL Phosphorus (2.5-4.5) mg/dL Magnesium (1.7-2.2) mg/dL Total Bilirubin (0.2-1.3) mg/dL AST (17-59) U/L ALT (7-56) U/L Alkaline Phosphatase (38-126) U/L Troponin I ng/mL NT-Pro-B Natriuret Pep (0-450) pg/mL Total Protein (5.8-8.3) g/dL Albumin (3.0-4.8) g/dL Globulin gm/dL Albumin/Globulin Ratio (1.1-1.8) Triglycerides (35-160) mg/dL Cholesterol (130-200) mg/dL LDL Cholesterol Direct (0-129) mg/dL HDL Cholesterol (29-60) mg/dL Thyroxine (T4) (5.5-11.0) ug/dL TSH 3rd Generation (0.46-4.68) mIU/mL Arterial Blood Potassium 3.3 L (3.6-5.2) mmol/L Venous Blood Potassium (3.6-5.2) mmol/L Urine Color (YELLOW) Urine Appearance (CLEAR) Urine pH (4.7-8.0) Ur Specific [place] (1.005-1.035) Urine Protein (<30 mg/dL) mg/dL Urine Glucose (UA) (NEGATIVE) mg/dL Urine Ketones (NEGATIVE) mg/dL Urine Blood (NEGATIVE) Urine Nitrate (NEGATIVE) Urine Bilirubin (NEGATIVE) Urine Urobilinogen (<1 E.U./dL) E.U./dL Ur Leukocyte Esterase (NEGATIVE) Alvino/uL Urine RBC (0-2) /hpf Urine WBC (0-6) /hpf Ur Epithelial Cells (0-5) /hpf Urine Bacteria (NONE) /hpf Urine Opiates Screen (NEGATIVE) Urine Methadone Screen (NEGATIVE) Ur Barbiturates Screen (NEGATIVE) Ur Phencyclidine Scrn (NEGATIVE) Ur Amphetamines Screen (NEGATIVE) U Benzodiazepines Scrn (NEGATIVE) U Oth Cocaine Metabols (NEGATIVE) U Cannabinoids Screen (NEGATIVE) Alcohol, Quantitative (0-10) mg/dL Blood Type Blood Type Confirm O POSITIVE Antibody Screen BBK History Checked 07/08/18 07/08/18 07/08/18 Range/Units 15:15 15:15 14:50 WBC (4.5-11.0) 10^3/uL RBC (3.5-6.1) 10^6/uL Hgb (14.0-18.0) g/dL Hct (42.0-52.0) % MCV (80.0-105.0) fl MCH (25.0-35.0) pg MCHC (31.0-37.0) g/dl RDW (11.5-14.5) % Plt Count (120.0-450.0) 10^3/uL MPV (7.0-11.0) fl Neut % (Auto) (50.0-68.0) % Lymph % (Auto) (22.0-35.0) % Lea % (Auto) (1.0-6.0) % Eos % (Auto) (1.5-5.0) % Baso % (Auto) (0.0-3.0) % Lymph # (Auto) (1.2-3.4) [place] # (Auto) (0.1-0.6) Eos # (Auto) (0.0-0.7) Baso # (Auto) (0.0-2.0) K/mm3 Absolute Neuts (auto) (1.4-6.5) Neutrophils % (Manual) (50.0-70.0) % Band Neutrophils % (0-2) % Lymphocytes % (Manual) (22.0-35.0) % Monocytes % (Manual) (1.0-6.0) % Metamyelocytes % % Platelet Evaluation (NORMAL) PT (9.4-12.5) SECONDS INR APTT (26.9-38.3) Seconds pCO2 (35-45) mm/Hg pO2 (30-55) mm/Hg HCO3 (21-28) mmol/L ABG pH (7.35-7.45) ABG Total CO2 (22-28) mmol.L ABG O2 Saturation (95-98) % ABG Base Excess (-2.0-3.0) mmol/L ABG Potassium (3.6-5.2) mmol/L VBG pH (7.32-7.43) VBG pCO2 (40-60) VBG HCO3 (21-28) mmol/l VBG Total CO2 (22-28) mmol.L VBG O2 Sat (Calc) (40-65) % VBG Base Excess (0.0-2.0) mmol/L VBG Potassium (3.6-5.2) mmol/L Glucose (75-110) mg/dl Lactate (0.7-2.1) mmol/L Mechanical Rate FiO2 % Tidal Volume PEEP Crit Value Called To Crit Value Called By Blood Gas Notified Time Sodium (132-148) mmol/L Potassium (3.6-5.0) mmol/L Chloride (98-107) mmol/L Carbon Dioxide (21-33) mmol/L Anion Gap (10-20) BUN (7-21) mg/dL Creatinine (0.8-1.5) mg/dl Est GFR ( Amer) Est GFR (Non-Af Amer) POC Glucose (mg/dL) (65-110) mg/dL Random Glucose (70-110) mg/dL Hemoglobin A1c (4.2-6.5) % Calcium (8.4-10.5) mg/dL Phosphorus (2.5-4.5) mg/dL Magnesium (1.7-2.2) mg/dL Total Bilirubin (0.2-1.3) mg/dL AST (17-59) U/L ALT (7-56) U/L Alkaline Phosphatase (38-126) U/L Troponin I ng/mL NT-Pro-B Natriuret Pep (0-450) pg/mL Total Protein (5.8-8.3) g/dL Albumin (3.0-4.8) g/dL Globulin gm/dL Albumin/Globulin Ratio (1.1-1.8) Triglycerides (35-160) mg/dL Cholesterol (130-200) mg/dL LDL Cholesterol Direct (0-129) mg/dL HDL Cholesterol (29-60) mg/dL Thyroxine (T4) 7.4 (5.5-11.0) ug/dL TSH 3rd Generation (0.46-4.68) mIU/mL Arterial Blood Potassium (3.6-5.2) mmol/L Venous Blood Potassium (3.6-5.2) mmol/L Urine Color Yellow (YELLOW) Urine Appearance Clear (CLEAR) Urine pH 7.0 (4.7-8.0) Ur Specific [place] 1.020 (1.005-1.035) Urine Protein >=300 H (<30 mg/dL) mg/dL Urine Glucose (UA) 100 H (NEGATIVE) mg/dL Urine Ketones Negative (NEGATIVE) mg/dL Urine Blood Large H (NEGATIVE) Urine Nitrate Negative (NEGATIVE) Urine Bilirubin Negative (NEGATIVE) Urine Urobilinogen 0.2 (<1 E.U./dL) E.U./dL Ur Leukocyte Esterase Negative (NEGATIVE) Alvino/uL Urine RBC Tntc H (0-2) /hpf Urine WBC 1 - 3 (0-6) /hpf Ur Epithelial Cells 0 - 2 (0-5) /hpf Urine Bacteria Large (NONE) /hpf Urine Opiates Screen Positive H (NEGATIVE) Urine Methadone Screen Negative (NEGATIVE) Ur Barbiturates Screen Negative (NEGATIVE) Ur Phencyclidine Scrn Negative (NEGATIVE) Ur Amphetamines Screen Negative (NEGATIVE) U Benzodiazepines Scrn Negative (NEGATIVE) U Oth Cocaine Metabols Negative (NEGATIVE) U Cannabinoids Screen Positive H (NEGATIVE) Alcohol, Quantitative (0-10) mg/dL Blood Type Blood Type Confirm Antibody Screen BBK History Checked 07/08/18 07/08/18 07/08/18 Range/Units 14:47 14:40 14:40 WBC (4.5-11.0) 10^3/uL RBC (3.5-6.1) 10^6/uL Hgb (14.0-18.0) g/dL Hct (42.0-52.0) % MCV (80.0-105.0) fl MCH (25.0-35.0) pg MCHC (31.0-37.0) g/dl RDW (11.5-14.5) % Plt Count (120.0-450.0) 10^3/uL MPV (7.0-11.0) fl Neut % (Auto) (50.0-68.0) % Lymph % (Auto) (22.0-35.0) % [place] % (Auto) (1.0-6.0) % Eos % (Auto) (1.5-5.0) % Baso % (Auto) (0.0-3.0) % Lymph # (Auto) (1.2-3.4) [place] # (Auto) (0.1-0.6) Eos # (Auto) (0.0-0.7) Baso # (Auto) (0.0-2.0) K/mm3 Absolute Neuts (auto) (1.4-6.5) Neutrophils % (Manual) (50.0-70.0) % Band Neutrophils % (0-2) % Lymphocytes % (Manual) (22.0-35.0) % Monocytes % (Manual) (1.0-6.0) % Metamyelocytes % % Platelet Evaluation (NORMAL) PT (9.4-12.5) SECONDS INR APTT (26.9-38.3) Seconds pCO2 (35-45) mm/Hg pO2 292 H (30-55) mm/Hg HCO3 (21-28) mmol/L ABG pH (7.35-7.45) ABG Total CO2 (22-28) mmol.L ABG O2 Saturation (95-98) % ABG Base Excess (-2.0-3.0) mmol/L ABG Potassium (3.6-5.2) mmol/L VBG pH 6.98 L* (7.32-7.43) VBG pCO2 53.0 (40-60) VBG HCO3 12.5 L (21-28) mmol/l VBG Total CO2 14.1 L (22-28) mmol.L VBG O2 Sat (Calc) 99.8 H (40-65) % VBG Base Excess -19.2 L (0.0-2.0) mmol/L VBG Potassium 3.8 (3.6-5.2) mmol/L Glucose 211 H (75-110) mg/dl Lactate 16.2 H* (0.7-2.1) mmol/L Mechanical Rate FiO2 21.0 % Tidal Volume PEEP Crit Value Called To [facility] Crit Value Called By Ab Blood Gas Notified Time 1453 Sodium 143.0 (132-148) mmol/L Potassium (3.6-5.0) mmol/L Chloride 100.0 (98-107) mmol/L Carbon Dioxide (21-33) mmol/L Anion Gap (10-20) BUN (7-21) mg/dL Creatinine (0.8-1.5) mg/dl Est GFR ( Amer) Est GFR (Non-Af Amer) POC Glucose (mg/dL) (65-110) mg/dL Random Glucose (70-110) mg/dL Hemoglobin A1c (4.2-6.5) % Calcium (8.4-10.5) mg/dL Phosphorus (2.5-4.5) mg/dL Magnesium (1.7-2.2) mg/dL Total Bilirubin (0.2-1.3) mg/dL AST (17-59) U/L ALT (7-56) U/L Alkaline Phosphatase (38-126) U/L Troponin I ng/mL NT-Pro-B Natriuret Pep 485 H (0-450) pg/mL Total Protein (5.8-8.3) g/dL Albumin (3.0-4.8) g/dL Globulin gm/dL Albumin/Globulin Ratio (1.1-1.8) Triglycerides (35-160) mg/dL Cholesterol (130-200) mg/dL LDL Cholesterol Direct (0-129) mg/dL HDL Cholesterol (29-60) mg/dL Thyroxine (T4) (5.5-11.0) ug/dL TSH 3rd Generation 6.37 H (0.46-4.68) mIU/mL Arterial Blood Potassium (3.6-5.2) mmol/L Venous Blood Potassium 3.8 (3.6-5.2) mmol/L Urine Color (YELLOW) Urine Appearance (CLEAR) Urine pH (4.7-8.0) Ur Specific [place] (1.005-1.035) Urine Protein (<30 mg/dL) mg/dL Urine Glucose (UA) (NEGATIVE) mg/dL Urine Ketones (NEGATIVE) mg/dL Urine Blood (NEGATIVE) Urine Nitrate (NEGATIVE) Urine Bilirubin (NEGATIVE) Urine Urobilinogen (<1 E.U./dL) E.U./dL Ur Leukocyte Esterase (NEGATIVE) Alvino/uL Urine RBC (0-2) /hpf Urine WBC (0-6) /hpf Ur Epithelial Cells (0-5) /hpf Urine Bacteria (NONE) /hpf Urine Opiates Screen (NEGATIVE) Urine Methadone Screen (NEGATIVE) Ur Barbiturates Screen (NEGATIVE) Ur Phencyclidine Scrn (NEGATIVE) Ur Amphetamines Screen (NEGATIVE) U Benzodiazepines Scrn (NEGATIVE) U Oth Cocaine Metabols (NEGATIVE) U Cannabinoids Screen (NEGATIVE) Alcohol, Quantitative < 10 (0-10) mg/dL Blood Type Blood Type Confirm Antibody Screen BBK History Checked 07/08/18 07/08/18 07/08/18 Range/Units 14:40 14:40 14:20 WBC (4.5-11.0) 10^3/uL RBC (3.5-6.1) 10^6/uL Hgb (14.0-18.0) g/dL Hct (42.0-52.0) % MCV (80.0-105.0) fl MCH (25.0-35.0) pg MCHC (31.0-37.0) g/dl RDW (11.5-14.5) % Plt Count (120.0-450.0) 10^3/uL MPV (7.0-11.0) fl Neut % (Auto) (50.0-68.0) % Lymph % (Auto) (22.0-35.0) % [place] % (Auto) (1.0-6.0) % Eos % (Auto) (1.5-5.0) % Baso % (Auto) (0.0-3.0) % Lymph # (Auto) (1.2-3.4) [place] # (Auto) (0.1-0.6) Eos # (Auto) (0.0-0.7) Baso # (Auto) (0.0-2.0) K/mm3 Absolute Neuts (auto) (1.4-6.5) Neutrophils % (Manual) (50.0-70.0) % Band Neutrophils % (0-2) % Lymphocytes % (Manual) (22.0-35.0) % Monocytes % (Manual) (1.0-6.0) % Metamyelocytes % % Platelet Evaluation (NORMAL) PT (9.4-12.5) SECONDS INR APTT (26.9-38.3) Seconds pCO2 (35-45) mm/Hg pO2 (30-55) mm/Hg HCO3 (21-28) mmol/L ABG pH (7.35-7.45) ABG Total CO2 (22-28) mmol.L ABG O2 Saturation (95-98) % ABG Base Excess (-2.0-3.0) mmol/L ABG Potassium (3.6-5.2) mmol/L VBG pH (7.32-7.43) VBG pCO2 (40-60) VBG HCO3 (21-28) mmol/l VBG Total CO2 (22-28) mmol.L VBG O2 Sat (Calc) (40-65) % VBG Base Excess (0.0-2.0) mmol/L VBG Potassium (3.6-5.2) mmol/L Glucose (75-110) mg/dl Lactate (0.7-2.1) mmol/L Mechanical Rate FiO2 % Tidal Volume PEEP Crit Value Called To Crit Value Called By Blood Gas Notified Time Sodium (132-148) mmol/L Potassium (3.6-5.0) mmol/L Chloride (98-107) mmol/L Carbon Dioxide (21-33) mmol/L Anion Gap (10-20) BUN (7-21) mg/dL Creatinine (0.8-1.5) mg/dl Est GFR ( Amer) Est GFR (Non-Af Amer) POC Glucose (mg/dL) (65-110) mg/dL Random Glucose (70-110) mg/dL Hemoglobin A1c (4.2-6.5) % Calcium (8.4-10.5) mg/dL Phosphorus 9.9 H (2.5-4.5) mg/dL Magnesium 2.7 H (1.7-2.2) mg/dL Total Bilirubin (0.2-1.3) mg/dL AST (17-59) U/L ALT (7-56) U/L Alkaline Phosphatase (38-126) U/L Troponin I ng/mL NT-Pro-B Natriuret Pep (0-450) pg/mL Total Protein (5.8-8.3) g/dL Albumin (3.0-4.8) g/dL Globulin gm/dL Albumin/Globulin Ratio (1.1-1.8) Triglycerides 88 (35-160) mg/dL Cholesterol 184 (130-200) mg/dL LDL Cholesterol Direct 84 (0-129) mg/dL HDL Cholesterol 85 H (29-60) mg/dL Thyroxine (T4) (5.5-11.0) ug/dL TSH 3rd Generation (0.46-4.68) mIU/mL Arterial Blood Potassium (3.6-5.2) mmol/L Venous Blood Potassium (3.6-5.2) mmol/L Urine Color (YELLOW) Urine Appearance (CLEAR) Urine pH (4.7-8.0) Ur Specific [place] (1.005-1.035) Urine Protein (<30 mg/dL) mg/dL Urine Glucose (UA) (NEGATIVE) mg/dL Urine Ketones (NEGATIVE) mg/dL Urine Blood (NEGATIVE) Urine Nitrate (NEGATIVE) Urine Bilirubin (NEGATIVE) Urine Urobilinogen (<1 E.U./dL) E.U./dL Ur Leukocyte Esterase (NEGATIVE) Alvino/uL Urine RBC (0-2) /hpf Urine WBC (0-6) /hpf Ur Epithelial Cells (0-5) /hpf Urine Bacteria (NONE) /hpf Urine Opiates Screen (NEGATIVE) Urine Methadone Screen (NEGATIVE) Ur Barbiturates Screen (NEGATIVE) Ur Phencyclidine Scrn (NEGATIVE) Ur Amphetamines Screen (NEGATIVE) U Benzodiazepines Scrn (NEGATIVE) U Oth Cocaine Metabols (NEGATIVE) U Cannabinoids Screen (NEGATIVE) Alcohol, Quantitative (0-10) mg/dL Blood Type O POSITIVE Blood Type Confirm Antibody Screen Negative BBK History Checked No verified bt 07/08/18 07/08/18 07/08/18 Range/Units 14:20 14:20 14:20 WBC 12.3 H (4.5-11.0) 10^3/uL RBC 4.30 (3.5-6.1) 10^6/uL Hgb 13.5 L (14.0-18.0) g/dL Hct 42.8 (42.0-52.0) % MCV 99.5 (80.0-105.0) fl MCH 31.4 (25.0-35.0) pg MCHC 31.5 (31.0-37.0) g/dl RDW 12.4 (11.5-14.5) % Plt Count 174 (120.0-450.0) 10^3/uL MPV 10.2 (7.0-11.0) fl Neut % (Auto) 45.4 L (50.0-68.0) % Lymph % (Auto) 48.2 H (22.0-35.0) % [place] % (Auto) 4.6 (1.0-6.0) % Eos % (Auto) 1.6 (1.5-5.0) % Baso % (Auto) 0.2 (0.0-3.0) % Lymph # (Auto) 5.9 H (1.2-3.4) [place] # (Auto) 0.6 (0.1-0.6) Eos # (Auto) 0.2 (0.0-0.7) Baso # (Auto) 0.03 (0.0-2.0) K/mm3 Absolute Neuts (auto) 5.56 (1.4-6.5) Neutrophils % (Manual) (50.0-70.0) % Band Neutrophils % (0-2) % Lymphocytes % (Manual) (22.0-35.0) % Monocytes % (Manual) (1.0-6.0) % Metamyelocytes % % Platelet Evaluation (NORMAL) PT 12.4 (9.4-12.5) SECONDS INR 1.12 APTT 36.3 (26.9-38.3) Seconds pCO2 (35-45) mm/Hg pO2 (30-55) mm/Hg HCO3 (21-28) mmol/L ABG pH (7.35-7.45) ABG Total CO2 (22-28) mmol.L ABG O2 Saturation (95-98) % ABG Base Excess (-2.0-3.0) mmol/L ABG Potassium (3.6-5.2) mmol/L VBG pH (7.32-7.43) VBG pCO2 (40-60) VBG HCO3 (21-28) mmol/l VBG Total CO2 (22-28) mmol.L VBG O2 Sat (Calc) (40-65) % VBG Base Excess (0.0-2.0) mmol/L VBG Potassium (3.6-5.2) mmol/L Glucose (75-110) mg/dl Lactate (0.7-2.1) mmol/L Mechanical Rate FiO2 % Tidal Volume PEEP Crit Value Called To Crit Value Called By Blood Gas Notified Time Sodium 142 (132-148) mmol/L Potassium 3.7 (3.6-5.0) mmol/L Chloride 104 (98-107) mmol/L Carbon Dioxide 15 L (21-33) mmol/L Anion Gap 26 H (10-20) BUN 14 (7-21) mg/dL Creatinine 1.5 (0.8-1.5) mg/dl Est GFR ( Amer) > 60 Est GFR (Non-Af Amer) 50 POC Glucose (mg/dL) (65-110) mg/dL Random Glucose 207 H (70-110) mg/dL Hemoglobin A1c (4.2-6.5) % Calcium 8.7 (8.4-10.5) mg/dL Phosphorus (2.5-4.5) mg/dL Magnesium (1.7-2.2) mg/dL Total Bilirubin 0.8 (0.2-1.3) mg/dL AST 109 H (17-59) U/L ALT 95 H (7-56) U/L Alkaline Phosphatase 101 (38-126) U/L Troponin I 0.06 ng/mL NT-Pro-B Natriuret Pep (0-450) pg/mL Total Protein 7.2 (5.8-8.3) g/dL Albumin 4.2 (3.0-4.8) g/dL Globulin 3.0 gm/dL Albumin/Globulin Ratio 1.4 (1.1-1.8) Triglycerides (35-160) mg/dL Cholesterol (130-200) mg/dL LDL Cholesterol Direct (0-129) mg/dL HDL Cholesterol (29-60) mg/dL Thyroxine (T4) (5.5-11.0) ug/dL TSH 3rd Generation (0.46-4.68) mIU/mL Arterial Blood Potassium (3.6-5.2) mmol/L Venous Blood Potassium (3.6-5.2) mmol/L Urine Color (YELLOW) Urine Appearance (CLEAR) Urine pH (4.7-8.0) Ur Specific [place] (1.005-1.035) Urine Protein (<30 mg/dL) mg/dL Urine Glucose (UA) (NEGATIVE) mg/dL Urine Ketones (NEGATIVE) mg/dL Urine Blood (NEGATIVE) Urine Nitrate (NEGATIVE) Urine Bilirubin (NEGATIVE) Urine Urobilinogen (<1 E.U./dL) E.U./dL Ur Leukocyte Esterase (NEGATIVE) Alvino/uL Urine RBC (0-2) /hpf Urine WBC (0-6) /hpf Ur Epithelial Cells (0-5) /hpf Urine Bacteria (NONE) /hpf Urine Opiates Screen (NEGATIVE) Urine Methadone Screen (NEGATIVE) Ur Barbiturates Screen (NEGATIVE) Ur Phencyclidine Scrn (NEGATIVE) Ur Amphetamines Screen (NEGATIVE) U Benzodiazepines Scrn (NEGATIVE) U Oth Cocaine Metabols (NEGATIVE) U Cannabinoids Screen (NEGATIVE) Alcohol, Quantitative (0-10) mg/dL Blood Type Blood Type Confirm Antibody Screen BBK History Checked Laboratory Results - last 24 hr 07/08/18 07/08/18 07/08/18 14:20 14:20 14:20 WBC 12.3 H RBC 4.30 Hgb 13.5 L Hct 42.8 MCV 99.5 MCH 31.4 MCHC 31.5 RDW 12.4 Plt Count 174 MPV 10.2 Neut % (Auto) 45.4 L Lymph % (Auto) 48.2 H [place] % (Auto) 4.6 Eos % (Auto) 1.6 Baso % (Auto) 0.2 Lymph # (Auto) 5.9 H [place] # (Auto) 0.6 Eos # (Auto) 0.2 Baso # (Auto) 0.03 Absolute Neuts (auto) 5.56 Neutrophils % (Manual) Band Neutrophils % Lymphocytes % (Manual) Monocytes % (Manual) Metamyelocytes % Platelet Evaluation PT 12.4 INR 1.12 APTT 36.3 pCO2 pO2 HCO3 ABG pH ABG Total CO2 ABG O2 Saturation ABG Base Excess ABG Potassium VBG pH VBG pCO2 VBG HCO3 VBG Total CO2 VBG O2 Sat (Calc) VBG Base Excess VBG Potassium Glucose Lactate Mechanical Rate FiO2 Tidal Volume PEEP Crit Value Called To Crit Value Called By Blood Gas Notified Time Sodium 142 Potassium 3.7 Chloride 104 Carbon Dioxide 15 L Anion Gap 26 H BUN 14 Creatinine 1.5 Est GFR ( Amer) > 60 Est GFR (Non-Af Amer) 50 POC Glucose (mg/dL) Random Glucose 207 H Hemoglobin A1c Calcium 8.7 Phosphorus Magnesium Total Bilirubin 0.8 AST 109 H ALT 95 H Alkaline Phosphatase 101 Troponin I 0.06 NT-Pro-B Natriuret Pep Total Protein 7.2 Albumin 4.2 Globulin 3.0 Albumin/Globulin Ratio 1.4 Triglycerides Cholesterol LDL Cholesterol Direct HDL Cholesterol Thyroxine (T4) TSH 3rd Generation Arterial Blood Potassium Venous Blood Potassium Urine Color Urine Appearance Urine pH Ur Specific [place] Urine Protein Urine Glucose (UA) Urine Ketones Urine Blood Urine Nitrate Urine Bilirubin Urine Urobilinogen Ur Leukocyte Esterase Urine RBC Urine WBC Ur Epithelial Cells Urine Bacteria Urine Opiates Screen Urine Methadone Screen Ur Barbiturates Screen Ur Phencyclidine Scrn Ur Amphetamines Screen U Benzodiazepines Scrn U Oth Cocaine Metabols U Cannabinoids Screen Alcohol, Quantitative Blood Type Blood Type Confirm Antibody Screen BBK History Checked 07/08/18 07/08/18 07/08/18 14:20 14:40 14:40 WBC RBC Hgb Hct MCV MCH MCHC RDW Plt Count MPV Neut % (Auto) Lymph % (Auto) [place] % (Auto) Eos % (Auto) Baso % (Auto) Lymph # (Auto) [place] # (Auto) Eos # (Auto) Baso # (Auto) Absolute Neuts (auto) Neutrophils % (Manual) Band Neutrophils % Lymphocytes % (Manual) Monocytes % (Manual) Metamyelocytes % Platelet Evaluation PT INR APTT pCO2 pO2 HCO3 ABG pH ABG Total CO2 ABG O2 Saturation ABG Base Excess ABG Potassium VBG pH VBG pCO2 VBG HCO3 VBG Total CO2 VBG O2 Sat (Calc) VBG Base Excess VBG Potassium Glucose Lactate Mechanical Rate FiO2 Tidal Volume PEEP Crit Value Called To Crit Value Called By Blood Gas Notified Time Sodium Potassium Chloride Carbon Dioxide Anion Gap BUN Creatinine Est GFR ( Amer) Est GFR (Non-Af Amer) POC Glucose (mg/dL) Random Glucose Hemoglobin A1c Calcium Phosphorus 9.9 H Magnesium 2.7 H Total Bilirubin AST ALT Alkaline Phosphatase Troponin I NT-Pro-B Natriuret Pep Total Protein Albumin Globulin Albumin/Globulin Ratio Triglycerides 88 Cholesterol 184 LDL Cholesterol Direct 84 HDL Cholesterol 85 H Thyroxine (T4) TSH 3rd Generation Arterial Blood Potassium Venous Blood Potassium Urine Color Urine Appearance Urine pH Ur Specific [place] Urine Protein Urine Glucose (UA) Urine Ketones Urine Blood Urine Nitrate Urine Bilirubin Urine Urobilinogen Ur Leukocyte Esterase Urine RBC Urine WBC Ur Epithelial Cells Urine Bacteria Urine Opiates Screen Urine Methadone Screen Ur Barbiturates Screen Ur Phencyclidine Scrn Ur Amphetamines Screen U Benzodiazepines Scrn U Oth Cocaine Metabols U Cannabinoids Screen Alcohol, Quantitative Blood Type O POSITIVE Blood Type Confirm Antibody Screen Negative BBK History Checked No verified bt 07/08/18 07/08/18 07/08/18 14:40 14:40 14:47 WBC RBC Hgb Hct MCV MCH MCHC RDW Plt Count MPV Neut % (Auto) Lymph % (Auto) [place] % (Auto) Eos % (Auto) Baso % (Auto) Lymph # (Auto) [place] # (Auto) Eos # (Auto) Baso # (Auto) Absolute Neuts (auto) Neutrophils % (Manual) Band Neutrophils % Lymphocytes % (Manual) Monocytes % (Manual) Metamyelocytes % Platelet Evaluation PT INR APTT pCO2 pO2 292 H HCO3 ABG pH ABG Total CO2 ABG O2 Saturation ABG Base Excess ABG Potassium VBG pH 6.98 L* VBG pCO2 53.0 VBG HCO3 12.5 L VBG Total CO2 14.1 L VBG O2 Sat (Calc) 99.8 H VBG Base Excess -19.2 L VBG Potassium 3.8 Glucose 211 H Lactate 16.2 H* Mechanical Rate FiO2 21.0 Tidal Volume PEEP Crit Value Called To [facility] Crit Value Called By Ab Blood Gas Notified Time 1453 Sodium 143.0 Potassium Chloride 100.0 Carbon Dioxide Anion Gap BUN Creatinine Est GFR ( Amer) Est GFR (Non-Af Amer) POC Glucose (mg/dL) Random Glucose Hemoglobin A1c Calcium Phosphorus Magnesium Total Bilirubin AST ALT Alkaline Phosphatase Troponin I NT-Pro-B Natriuret Pep 485 H Total Protein Albumin Globulin Albumin/Globulin Ratio Triglycerides Cholesterol LDL Cholesterol Direct HDL Cholesterol Thyroxine (T4) TSH 3rd Generation 6.37 H Arterial Blood Potassium Venous Blood Potassium 3.8 Urine Color Urine Appearance Urine pH Ur Specific [place] Urine Protein Urine Glucose (UA) Urine Ketones Urine Blood Urine Nitrate Urine Bilirubin Urine Urobilinogen Ur Leukocyte Esterase Urine RBC Urine WBC Ur Epithelial Cells Urine Bacteria Urine Opiates Screen Urine Methadone Screen Ur Barbiturates Screen Ur Phencyclidine Scrn Ur Amphetamines Screen U Benzodiazepines Scrn U Oth Cocaine Metabols U Cannabinoids Screen Alcohol, Quantitative < 10 Blood Type Blood Type Confirm Antibody Screen BBK History Checked 07/08/18 07/08/18 07/08/18 14:50 15:15 15:15 WBC RBC Hgb Hct MCV MCH MCHC RDW Plt Count MPV Neut % (Auto) Lymph % (Auto) [place] % (Auto) Eos % (Auto) Baso % (Auto) Lymph # (Auto) [place] # (Auto) Eos # (Auto) Baso # (Auto) Absolute Neuts (auto) Neutrophils % (Manual) Band Neutrophils % Lymphocytes % (Manual) Monocytes % (Manual) Metamyelocytes % Platelet Evaluation PT INR APTT pCO2 pO2 HCO3 ABG pH ABG Total CO2 ABG O2 Saturation ABG Base Excess ABG Potassium VBG pH VBG pCO2 VBG HCO3 VBG Total CO2 VBG O2 Sat (Calc) VBG Base Excess VBG Potassium Glucose Lactate Mechanical Rate FiO2 Tidal Volume PEEP Crit Value Called To Crit Value Called By Blood Gas Notified Time Sodium Potassium Chloride Carbon Dioxide Anion Gap BUN Creatinine Est GFR ( Amer) Est GFR (Non-Af Amer) POC Glucose (mg/dL) Random Glucose Hemoglobin A1c Calcium Phosphorus Magnesium Total Bilirubin AST ALT Alkaline Phosphatase Troponin I NT-Pro-B Natriuret Pep Total Protein Albumin Globulin Albumin/Globulin Ratio Triglycerides Cholesterol LDL Cholesterol Direct HDL Cholesterol Thyroxine (T4) 7.4 TSH 3rd Generation Arterial Blood Potassium Venous Blood Potassium Urine Color Yellow Urine Appearance Clear Urine pH 7.0 Ur Specific [place] 1.020 Urine Protein >=300 H Urine Glucose (UA) 100 H Urine Ketones Negative Urine Blood Large H Urine Nitrate Negative Urine Bilirubin Negative Urine Urobilinogen 0.2 Ur Leukocyte Esterase Negative Urine RBC Tntc H Urine WBC 1 - 3 Ur Epithelial Cells 0 - 2 Urine Bacteria Large Urine Opiates Screen Positive H Urine Methadone Screen Negative Ur Barbiturates Screen Negative Ur Phencyclidine Scrn Negative Ur Amphetamines Screen Negative U Benzodiazepines Scrn Negative U Oth Cocaine Metabols Negative U Cannabinoids Screen Positive H Alcohol, Quantitative Blood Type Blood Type Confirm Antibody Screen BBK History Checked 07/08/18 07/08/18 07/08/18 16:00 17:31 18:02 WBC RBC Hgb Hct MCV MCH MCHC RDW Plt Count MPV Neut % (Auto) Lymph % (Auto) [place] % (Auto) Eos % (Auto) Baso % (Auto) Lymph # (Auto) [place] # (Auto) Eos # (Auto) Baso # (Auto) Absolute Neuts (auto) Neutrophils % (Manual) Band Neutrophils % Lymphocytes % (Manual) Monocytes % (Manual) Metamyelocytes % Platelet Evaluation PT INR APTT pCO2 46 H pO2 136.0 H HCO3 26.0 ABG pH 7.36 ABG Total CO2 27.4 ABG O2 Saturation 99.9 H ABG Base Excess 0.1 ABG Potassium 3.3 L VBG pH VBG pCO2 VBG HCO3 VBG Total CO2 VBG O2 Sat (Calc) VBG Base Excess VBG Potassium Glucose 161 H Lactate 2.0 Mechanical Rate 20 FiO2 100.0 Tidal Volume 450 PEEP 5 Crit Value Called To Crit Value Called By Blood Gas Notified Time Sodium 143.0 Potassium Chloride 107.0 Carbon Dioxide Anion Gap BUN Creatinine Est GFR ( Amer) Est GFR (Non-Af Amer) POC Glucose (mg/dL) 157 H Random Glucose Hemoglobin A1c Calcium Phosphorus Magnesium Total Bilirubin AST ALT Alkaline Phosphatase Troponin I NT-Pro-B Natriuret Pep Total Protein Albumin Globulin Albumin/Globulin Ratio Triglycerides Cholesterol LDL Cholesterol Direct HDL Cholesterol Thyroxine (T4) TSH 3rd Generation Arterial Blood Potassium 3.3 L Venous Blood Potassium Urine Color Urine Appearance Urine pH Ur Specific [place] Urine Protein Urine Glucose (UA) Urine Ketones Urine Blood Urine Nitrate Urine Bilirubin Urine Urobilinogen Ur Leukocyte Esterase Urine RBC Urine WBC Ur Epithelial Cells Urine Bacteria Urine Opiates Screen Urine Methadone Screen Ur Barbiturates Screen Ur Phencyclidine Scrn Ur Amphetamines Screen U Benzodiazepines Scrn U Oth Cocaine Metabols U Cannabinoids Screen Alcohol, Quantitative Blood Type Blood Type Confirm O POSITIVE Antibody Screen BBK History Checked 07/08/18 07/08/18 07/08/18 18:20 22:03 22:03 WBC RBC Hgb Hct MCV MCH MCHC RDW Plt Count MPV Neut % (Auto) Lymph % (Auto) [place] % (Auto) Eos % (Auto) Baso % (Auto) Lymph # (Auto) [place] # (Auto) Eos # (Auto) Baso # (Auto) Absolute Neuts (auto) Neutrophils % (Manual) Band Neutrophils % Lymphocytes % (Manual) Monocytes % (Manual) Metamyelocytes % Platelet Evaluation PT INR APTT 140.2 H* pCO2 pO2 53 HCO3 ABG pH ABG Total CO2 ABG O2 Saturation ABG Base Excess ABG Potassium VBG pH 7.33 VBG pCO2 52.0 VBG HCO3 27.4 VBG Total CO2 29.0 H VBG O2 Sat (Calc) 88.3 H VBG Base Excess 0.6 VBG Potassium 2.8 L Glucose 208 H Lactate 3.7 H Mechanical Rate FiO2 21.0 Tidal Volume PEEP Crit Value Called To Madeline bernard Crit Value Called By Atc Blood Gas Notified Time 2224 Sodium 144.0 Potassium Chloride 104.0 Carbon Dioxide Anion Gap BUN Creatinine Est GFR ( Amer) Est GFR (Non-Af Amer) POC Glucose (mg/dL) Random Glucose Hemoglobin A1c 5.0 Calcium Phosphorus Magnesium Total Bilirubin AST ALT Alkaline Phosphatase Troponin I NT-Pro-B Natriuret Pep Total Protein Albumin Globulin Albumin/Globulin Ratio Triglycerides Cholesterol LDL Cholesterol Direct HDL Cholesterol Thyroxine (T4) TSH 3rd Generation Arterial Blood Potassium Venous Blood Potassium 2.8 L Urine Color Urine Appearance Urine pH Ur Specific [place] Urine Protein Urine Glucose (UA) Urine Ketones Urine Blood Urine Nitrate Urine Bilirubin Urine Urobilinogen Ur Leukocyte Esterase Urine RBC Urine WBC Ur Epithelial Cells Urine Bacteria Urine Opiates Screen Urine Methadone Screen Ur Barbiturates Screen Ur Phencyclidine Scrn Ur Amphetamines Screen U Benzodiazepines Scrn U Oth Cocaine Metabols U Cannabinoids Screen Alcohol, Quantitative Blood Type Blood Type Confirm Antibody Screen BBK History Checked 07/08/18 07/08/18 07/08/18 22:03 22:03 23:21 WBC 25.4 H* D RBC 4.56 Hgb 14.4 Hct 43.1 MCV 94.5 D MCH 31.6 MCHC 33.4 RDW 12.3 Plt Count 185 MPV 10.0 Neut % (Auto) 92.6 H Lymph % (Auto) 2.8 L [place] % (Auto) 4.6 Eos % (Auto) 0.0 L Baso % (Auto) 0.0 Lymph # (Auto) 0.7 L [place] # (Auto) 1.2 H Eos # (Auto) 0.0 Baso # (Auto) 0.01 Absolute Neuts (auto) 23.48 H Neutrophils % (Manual) 93 H Band Neutrophils % 4 H Lymphocytes % (Manual) 1 L Monocytes % (Manual) 1 Metamyelocytes % 1 Platelet Evaluation Normal PT INR APTT pCO2 pO2 HCO3 ABG pH ABG Total CO2 ABG O2 Saturation ABG Base Excess ABG Potassium VBG pH VBG pCO2 VBG HCO3 VBG Total CO2 VBG O2 Sat (Calc) VBG Base Excess VBG Potassium Glucose Lactate Mechanical Rate FiO2 Tidal Volume PEEP Crit Value Called To Crit Value Called By Blood Gas Notified Time Sodium 141 Potassium 2.9 L* D Chloride 104 Carbon Dioxide 28 Anion Gap 12 BUN 16 Creatinine 0.9 Est GFR ( Amer) > 60 Est GFR (Non-Af Amer) > 60 POC Glucose (mg/dL) 198 H Random Glucose 202 H Hemoglobin A1c Calcium 8.0 L Phosphorus 3.1 Magnesium 2.3 H Total Bilirubin 0.5 AST 214 H D ALT 119 H Alkaline Phosphatase 101 Troponin I 9.05 H* D NT-Pro-B Natriuret Pep Total Protein 7.1 Albumin 4.1 Globulin 3.1 Albumin/Globulin Ratio 1.3 Triglycerides Cholesterol LDL Cholesterol Direct HDL Cholesterol Thyroxine (T4) TSH 3rd Generation Arterial Blood Potassium Venous Blood Potassium Urine Color Urine Appearance Urine pH Ur Specific [place] Urine Protein Urine Glucose (UA) Urine Ketones Urine Blood Urine Nitrate Urine Bilirubin Urine Urobilinogen Ur Leukocyte Esterase Urine RBC Urine WBC Ur Epithelial Cells Urine Bacteria Urine Opiates Screen Urine Methadone Screen Ur Barbiturates Screen Ur Phencyclidine Scrn Ur Amphetamines Screen U Benzodiazepines Scrn U Oth Cocaine Metabols U Cannabinoids Screen Alcohol, Quantitative Blood Type Blood Type Confirm Antibody Screen BBK History Checked 07/08/18 07/09/18 07/09/18 23:48 01:30 01:30 WBC RBC Hgb Hct MCV MCH MCHC RDW Plt Count MPV Neut % (Auto) Lymph % (Auto) [place] % (Auto) Eos % (Auto) Baso % (Auto) Lymph # (Auto) [place] # (Auto) Eos # (Auto) Baso # (Auto) Absolute Neuts (auto) Neutrophils % (Manual) Band Neutrophils % Lymphocytes % (Manual) Monocytes % (Manual) Metamyelocytes % Platelet Evaluation PT INR APTT pCO2 45 pO2 101.0 H 45 HCO3 28.5 H ABG pH 7.41 ABG Total CO2 29.9 H ABG O2 Saturation 99.6 H ABG Base Excess 3.2 H ABG Potassium 2.6 L VBG pH 7.30 L VBG pCO2 60.0 VBG HCO3 29.5 H VBG Total CO2 31.3 H VBG O2 Sat (Calc) 76.0 H VBG Base Excess 1.6 VBG Potassium 3.0 L Glucose 177 H 150 H Lactate 2.6 H 5.1 H* Mechanical Rate FiO2 80.0 21.0 Tidal Volume PEEP Crit Value 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 Crit Value Called By Evangelina Ames Blood Gas Notified Time 9710 148 Sodium 144.0 144.0 Potassium Chloride 104.0 101.0 Carbon Dioxide Anion Gap BUN Creatinine Est GFR ( Amer) Est GFR (Non-Af Amer) POC Glucose (mg/dL) Random Glucose Hemoglobin A1c Calcium Phosphorus Magnesium Total Bilirubin AST ALT Alkaline Phosphatase Troponin I 7.60 H* NT-Pro-B Natriuret Pep Total Protein Albumin Globulin Albumin/Globulin Ratio Triglycerides Cholesterol LDL Cholesterol Direct HDL Cholesterol Thyroxine (T4) TSH 3rd Generation Arterial Blood Potassium 2.6 L Venous Blood Potassium 3.0 L Urine Color Urine Appearance Urine pH Ur Specific [place] Urine Protein Urine Glucose (UA) Urine Ketones Urine Blood Urine Nitrate Urine Bilirubin Urine Urobilinogen Ur Leukocyte Esterase Urine RBC Urine WBC Ur Epithelial Cells Urine Bacteria Urine Opiates Screen Urine Methadone Screen Ur Barbiturates Screen Ur Phencyclidine Scrn Ur Amphetamines Screen U Benzodiazepines Scrn U Oth Cocaine Metabols U Cannabinoids Screen Alcohol, Quantitative Blood Type Blood Type Confirm Antibody Screen BBK History Checked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 Phosphatase 101 (38-126) U/L Troponin I 9.05 H* D ng/mL Total Protein 7.1 (5.8-8.3) g/dL Albumin 4.1 (3.0-4.8) g/dL Globulin 3.1 gm/dL Albumin/Globulin Ratio 1.3 (1.1-1.8) Triglycerides (35-160) mg/dL Cholesterol (130-200) mg/dL LDL Cholesterol Direct (0-129) mg/dL HDL Cholesterol (29-60) mg/dL Procalcitonin (0.19-0.49) NG/ML Thyroxine (T4) (5.5-11.0) ug/dL Arterial Blood Potassium (3.6-5.2) mmol/L Venous Blood Potassium 2.8 L (3.6-5.2) mmol/L Ur L.pneumophila Ag (NEGATIVE) 07/08/18 07/08/18 07/08/18 Range/Units 18:20 17:31 14:50 WBC (4.5-11.0) 10^3/uL RBC (3.5-6.1) 10^6/uL Hgb (14.0-18.0) g/dL Hct (42.0-52.0) % MCV (80.0-105.0) fl MCH (25.0-35.0) pg MCHC (31.0-37.0) g/dl RDW (11.5-14.5) % Plt Count (120.0-450.0) 10^3/uL MPV (7.0-11.0) fl Neut % (Auto) (50.0-68.0) % Lymph % (Auto) (22.0-35.0) % Lea % (Auto) (1.0-6.0) % Eos % (Auto) (1.5-5.0) % Baso % (Auto) (0.0-3.0) % Lymph # (Auto) (1.2-3.4) Lea # (Auto) (0.1-0.6) Eos # (Auto) (0.0-0.7) Baso # (Auto) (0.0-2.0) K/mm3 Absolute Neuts (auto) (1.4-6.5) Neutrophils % (Manual) (50.0-70.0) % Band Neutrophils % (0-2) % Lymphocytes % (Manual) (22.0-35.0) % Monocytes % (Manual) (1.0-6.0) % Metamyelocytes % % Platelet Evaluation (NORMAL) PT (9.4-12.5) SECONDS INR APTT (26.9-38.3) Seconds pCO2 (35-45) mm/Hg pO2 (30-55) mm/Hg HCO3 (21-28) mmol/L ABG pH (7.35-7.45) ABG Total CO2 (22-28) mmol.L ABG O2 Saturation (95-98) % ABG Base Excess (-2.0-3.0) mmol/L ABG Potassium (3.6-5.2) mmol/L VBG pH (7.32-7.43) VBG pCO2 (40-60) VBG HCO3 (21-28) mmol/l VBG Total CO2 (22-28) mmol.L VBG O2 Sat (Calc) (40-65) % VBG Base Excess (0.0-2.0) mmol/L VBG Potassium (3.6-5.2) mmol/L Sodium (132-148) mmol/L Chloride (98-107) mmol/L Glucose (75-110) mg/dl Lactate (0.7-2.1) mmol/L FiO2 % Crit Value Called To Crit Value Called By Blood Gas Notified Time Potassium (3.6-5.0) mmol/L Carbon Dioxide (21-33) mmol/L Anion Gap (10-20) BUN (7-21) mg/dL Creatinine (0.8-1.5) mg/dl Est GFR ( Amer) Est GFR (Non-Af Amer) POC Glucose (mg/dL) 157 H (65-110) mg/dL Random Glucose (70-110) mg/dL Hemoglobin A1c 5.0 (4.2-6.5) % Calcium (8.4-10.5) mg/dL Phosphorus (2.5-4.5) mg/dL Magnesium (1.7-2.2) mg/dL Total Bilirubin (0.2-1.3) mg/dL AST (17-59) U/L ALT (7-56) U/L Alkaline Phosphatase (38-126) U/L Troponin I ng/mL Total Protein (5.8-8.3) g/dL Albumin (3.0-4.8) g/dL Globulin gm/dL Albumin/Globulin Ratio (1.1-1.8) Triglycerides (35-160) mg/dL Cholesterol (130-200) mg/dL LDL Cholesterol Direct (0-129) mg/dL HDL Cholesterol (29-60) mg/dL Procalcitonin (0.19-0.49) NG/ML Thyroxine (T4) 7.4 (5.5-11.0) ug/dL Arterial Blood Potassium (3.6-5.2) mmol/L Venous Blood Potassium (3.6-5.2) mmol/L Ur L.pneumophila Ag (NEGATIVE) 07/08/18 07/08/18 Range/Units 14:20 14:20 WBC (4.5-11.0) 10^3/uL RBC (3.5-6.1) 10^6/uL Hgb (14.0-18.0) g/dL Hct (42.0-52.0) % MCV (80.0-105.0) fl MCH (25.0-35.0) pg MCHC (31.0-37.0) g/dl RDW (11.5-14.5) % Plt Count (120.0-450.0) 10^3/uL MPV (7.0-11.0) fl Neut % (Auto) (50.0-68.0) % Lymph % (Auto) (22.0-35.0) % Lea % (Auto) (1.0-6.0) % Eos % (Auto) (1.5-5.0) % Baso % (Auto) (0.0-3.0) % Lymph # (Auto) (1.2-3.4) Lea # (Auto) (0.1-0.6) Eos # (Auto) (0.0-0.7) Baso # (Auto) (0.0-2.0) K/mm3 Absolute Neuts (auto) (1.4-6.5) Neutrophils % (Manual) (50.0-70.0) % Band Neutrophils % (0-2) % Lymphocytes % (Manual) (22.0-35.0) % Monocytes % (Manual) (1.0-6.0) % Metamyelocytes % % Platelet Evaluation (NORMAL) PT (9.4-12.5) SECONDS INR APTT (26.9-38.3) Seconds pCO2 (35-45) mm/Hg pO2 (30-55) mm/Hg HCO3 (21-28) mmol/L ABG pH (7.35-7.45) ABG Total CO2 (22-28) mmol.L ABG O2 Saturation (95-98) % ABG Base Excess (-2.0-3.0) mmol/L ABG Potassium (3.6-5.2) mmol/L VBG pH (7.32-7.43) VBG pCO2 (40-60) VBG HCO3 (21-28) mmol/l VBG Total CO2 (22-28) mmol.L VBG O2 Sat (Calc) (40-65) % VBG Base Excess (0.0-2.0) mmol/L VBG Potassium (3.6-5.2) mmol/L Sodium (132-148) mmol/L Chloride (98-107) mmol/L Glucose (75-110) mg/dl Lactate (0.7-2.1) mmol/L FiO2 % Crit Value Called To Crit Value Called By Blood Gas Notified Time Potassium (3.6-5.0) mmol/L Carbon Dioxide (21-33) mmol/L Anion Gap (10-20) BUN (7-21) mg/dL Creatinine (0.8-1.5) mg/dl Est GFR ( Amer) Est GFR (Non-Af Amer) POC Glucose (mg/dL) (65-110) mg/dL Random Glucose (70-110) mg/dL Hemoglobin A1c (4.2-6.5) % Calcium (8.4-10.5) mg/dL Phosphorus (2.5-4.5) mg/dL Magnesium (1.7-2.2) mg/dL Total Bilirubin (0.2-1.3) mg/dL AST (17-59) U/L ALT (7-56) U/L Alkaline Phosphatase (38-126) U/L Troponin I ng/mL Total Protein (5.8-8.3) g/dL Albumin (3.0-4.8) g/dL Globulin gm/dL Albumin/Globulin Ratio (1.1-1.8) Triglycerides 88 (35-160) mg/dL Cholesterol 184 (130-200) mg/dL LDL Cholesterol Direct 84 (0-129) mg/dL HDL Cholesterol 85 H (29-60) mg/dL Procalcitonin < 0.05 L (0.19-0.49) NG/ML Thyroxine (T4) (5.5-11.0) ug/dL Arterial Blood Potassium (3.6-5.2) mmol/L Venous Blood Potassium (3.6-5.2) mmol/L Ur L.pneumophila Ag (NEGATIVE) Laboratory Results - last 24 hr 07/08/18 07/08/18 07/08/18 14:20 14:20 14:50 WBC RBC Hgb Hct MCV MCH MCHC RDW Plt Count MPV Neut % (Auto) Lymph % (Auto) Lea % (Auto) Eos % (Auto) Baso % (Auto) Lymph # (Auto) Lea # (Auto) Eos # (Auto) Baso # (Auto) Absolute Neuts (auto) Neutrophils % (Manual) Band Neutrophils % Lymphocytes % (Manual) Monocytes % (Manual) Metamyelocytes % Platelet Evaluation PT INR APTT pCO2 pO2 HCO3 ABG pH ABG Total CO2 ABG O2 Saturation ABG Base Excess ABG Potassium VBG pH VBG pCO2 VBG HCO3 VBG Total CO2 VBG O2 Sat (Calc) VBG Base Excess VBG Potassium Sodium Chloride Glucose Lactate FiO2 Crit Value Called To Crit Value Called By Blood Gas Notified Time Potassium Carbon Dioxide Anion Gap BUN Creatinine Est GFR ( Amer) Est GFR (Non-Af Amer) POC Glucose (mg/dL) Random Glucose Hemoglobin A1c Calcium Phosphorus Magnesium Total Bilirubin AST ALT Alkaline Phosphatase Troponin I Total Protein Albumin Globulin Albumin/Globulin Ratio Triglycerides 88 Cholesterol 184 LDL Cholesterol Direct 84 HDL Cholesterol 85 H Procalcitonin < 0.05 L Thyroxine (T4) 7.4 Arterial Blood Potassium Venous Blood Potassium Ur L.pneumophila Ag 07/08/18 07/08/18 07/08/18 17:31 18:20 22:03 WBC RBC Hgb Hct MCV MCH MCHC RDW Plt Count MPV Neut % (Auto) Lymph % (Auto) Lea % (Auto) Eos % (Auto) Baso % (Auto) Lymph # (Auto) Lea # (Auto) Eos # (Auto) Baso # (Auto) Absolute Neuts (auto) Neutrophils % (Manual) Band Neutrophils % Lymphocytes % (Manual) Monocytes % (Manual) Metamyelocytes % Platelet Evaluation PT INR APTT pCO2 pO2 53 HCO3 ABG pH ABG Total CO2 ABG O2 Saturation ABG Base Excess ABG Potassium VBG pH 7.33 VBG pCO2 52.0 VBG HCO3 27.4 VBG Total CO2 29.0 H VBG O2 Sat (Calc) 88.3 H VBG Base Excess 0.6 VBG Potassium 2.8 L Sodium 144.0 Chloride 104.0 Glucose 208 H Lactate 3.7 H FiO2 21.0 Crit Value Called To Madeline bernard Crit Value Called By Atc Blood Gas Notified Time 2225 Potassium Carbon Dioxide Anion Gap BUN Creatinine Est GFR ( Amer) Est GFR (Non-Af Amer) POC Glucose (mg/dL) 157 H Random Glucose Hemoglobin A1c 5.0 Calcium Phosphorus Magnesium Total Bilirubin AST ALT Alkaline Phosphatase Troponin I Total Protein Albumin Globulin Albumin/Globulin Ratio Triglycerides Cholesterol LDL Cholesterol Direct HDL Cholesterol Procalcitonin Thyroxine (T4) Arterial Blood Potassium Venous Blood Potassium 2.8 L Ur L.pneumophila Ag 07/08/18 07/08/18 07/08/18 22:03 22:03 22:03 WBC 25.4 H* D RBC 4.56 Hgb 14.4 Hct 43.1 MCV 94.5 D MCH 31.6 MCHC 33.4 RDW 12.3 Plt Count 185 MPV 10.0 Neut % (Auto) 92.6 H Lymph % (Auto) 2.8 L Lea % (Auto) 4.6 Eos % (Auto) 0.0 L Baso % (Auto) 0.0 Lymph # (Auto) 0.7 L Lea # (Auto) 1.2 H Eos # (Auto) 0.0 Baso # (Auto) 0.01 Absolute Neuts (auto) 23.48 H Neutrophils % (Manual) 93 H Band Neutrophils % 4 H Lymphocytes % (Manual) 1 L Monocytes % (Manual) 1 Metamyelocytes % 1 Platelet Evaluation Normal PT INR APTT 140.2 H* pCO2 pO2 HCO3 ABG pH ABG Total CO2 ABG O2 Saturation ABG Base Excess ABG Potassium VBG pH VBG pCO2 VBG HCO3 VBG Total CO2 VBG O2 Sat (Calc) VBG Base Excess VBG Potassium Sodium 141 Chloride 104 Glucose Lactate FiO2 Crit Value Called To Crit Value Called By Blood Gas Notified Time Potassium 2.9 L* D Carbon Dioxide 28 Anion Gap 12 BUN 16 Creatinine 0.9 Est GFR ( Amer) > 60 Est GFR (Non-Af Amer) > 60 POC Glucose (mg/dL) Random Glucose 202 H Hemoglobin A1c Calcium 8.0 L Phosphorus 3.1 Magnesium 2.3 H Total Bilirubin 0.5 AST 214 H D ALT 119 H Alkaline Phosphatase 101 Troponin I 9.05 H* D Total Protein 7.1 Albumin 4.1 Globulin 3.1 Albumin/Globulin Ratio 1.3 Triglycerides Cholesterol LDL Cholesterol Direct HDL Cholesterol Procalcitonin Thyroxine (T4) Arterial Blood Potassium Venous Blood Potassium Ur L.pneumophila Ag 07/08/18 07/08/18 07/09/18 23:21 23:48 01:30 WBC RBC Hgb Hct MCV MCH MCHC RDW Plt Count MPV Neut % (Auto) Lymph % (Auto) Lea % (Auto) Eos % (Auto) Baso % (Auto) Lymph # (Auto) Lea # (Auto) Eos # (Auto) Baso # (Auto) Absolute Neuts (auto) Neutrophils % (Manual) Band Neutrophils % Lymphocytes % (Manual) Monocytes % (Manual) Metamyelocytes % Platelet Evaluation PT INR APTT pCO2 45 pO2 101.0 H HCO3 28.5 H ABG pH 7.41 ABG Total CO2 29.9 H ABG O2 Saturation 99.6 H ABG Base Excess 3.2 H ABG Potassium 2.6 L VBG pH VBG pCO2 VBG HCO3 VBG Total CO2 VBG O2 Sat (Calc) VBG Base Excess VBG Potassium Sodium 144.0 Chloride 104.0 Glucose 177 H Lactate 2.6 H FiO2 80.0 Crit Value Called To Dr. cornelius Crit Value Called By Evangelina ge Blood Gas Notified Time 2358 Potassium Carbon Dioxide Anion Gap BUN Creatinine Est GFR ( Amer) Est GFR (Non-Af Amer) POC Glucose (mg/dL) 198 H Random Glucose Hemoglobin A1c Calcium Phosphorus Magnesium Total Bilirubin AST ALT Alkaline Phosphatase Troponin I 7.60 H* Total Protein Albumin Globulin Albumin/Globulin Ratio Triglycerides Cholesterol LDL Cholesterol Direct HDL Cholesterol Procalcitonin Thyroxine (T4) Arterial Blood Potassium 2.6 L Venous Blood Potassium Ur L.pneumophila Ag 07/09/18 07/09/18 07/09/18 01:30 05:20 05:20 WBC RBC Hgb Hct MCV MCH MCHC RDW Plt Count MPV Neut % (Auto) Lymph % (Auto) Lea % (Auto) Eos % (Auto) Baso % (Auto) Lymph # (Auto) Lea # (Auto) Eos # (Auto) Baso # (Auto) Absolute Neuts (auto) Neutrophils % (Manual) Band Neutrophils % Lymphocytes % (Manual) Monocytes % (Manual) Metamyelocytes % Platelet Evaluation PT INR APTT 69.1 H pCO2 pO2 45 HCO3 ABG pH ABG Total CO2 ABG O2 Saturation ABG Base Excess ABG Potassium VBG pH 7.30 L VBG pCO2 60.0 VBG HCO3 29.5 H VBG Total CO2 31.3 H VBG O2 Sat (Calc) 76.0 H VBG Base Excess 1.6 VBG Potassium 3.0 L Sodium 144.0 141 Chloride 101.0 99 Glucose 150 H Lactate 5.1 H* FiO2 21.0 Crit Value Called To Madeline bernard rn icu Crit Value Called By Hui Blood Gas Notified Time 148 Potassium 3.2 L Carbon Dioxide 31 Anion Gap 14 BUN 16 Creatinine 0.9 Est GFR ( Amer) > 60 Est GFR (Non-Af Amer) > 60 POC Glucose (mg/dL) Random Glucose 133 H Hemoglobin A1c Calcium 8.3 L Phosphorus 2.3 L Magnesium 2.3 H Total Bilirubin 0.6 AST 265 H D ALT 132 H Alkaline Phosphatase 92 Troponin I Total Protein 7.5 Albumin 4.2 Globulin 3.3 Albumin/Globulin Ratio 1.3 Triglycerides Cholesterol LDL Cholesterol Direct HDL Cholesterol Procalcitonin Thyroxine (T4) Arterial Blood Potassium Venous Blood Potassium 3.0 L Ur L.pneumophila Ag 07/09/18 07/09/18 07/09/18 05:42 09:40 10:15 WBC 27.2 H* RBC 4.60 Hgb 14.5 Hct 43.2 MCV 93.9 MCH 31.5 MCHC 33.6 RDW 12.3 Plt Count 161 MPV 9.9 Neut % (Auto) 91.9 H Lymph % (Auto) 4.2 L Lea % (Auto) 3.9 Eos % (Auto) 0.0 L Baso % (Auto) 0.0 Lymph # (Auto) 1.2 Lea # (Auto) 1.1 H Eos # (Auto) 0.0 Baso # (Auto) 0.00 Absolute Neuts (auto) 24.96 H Neutrophils % (Manual) Band Neutrophils % Lymphocytes % (Manual) Monocytes % (Manual) Metamyelocytes % Platelet Evaluation PT INR APTT pCO2 39 pO2 121.0 H HCO3 26.5 ABG pH 7.44 ABG Total CO2 27.7 ABG O2 Saturation 100.1 H ABG Base Excess 2.3 ABG Potassium 3.1 L VBG pH VBG pCO2 VBG HCO3 VBG Total CO2 VBG O2 Sat (Calc) VBG Base Excess VBG Potassium Sodium 140.0 Chloride 105.0 Glucose 121 H Lactate 1.6 FiO2 80.0 Crit Value Called To Crit Value Called By Blood Gas Notified Time Potassium Carbon Dioxide Anion Gap BUN Creatinine Est GFR ( Amer) Est GFR (Non-Af Amer) POC Glucose (mg/dL) 143 H Random Glucose Hemoglobin A1c Calcium Phosphorus Magnesium Total Bilirubin AST ALT Alkaline Phosphatase Troponin I Total Protein Albumin Globulin Albumin/Globulin Ratio Triglycerides Cholesterol LDL Cholesterol Direct HDL Cholesterol Procalcitonin Thyroxine (T4) Arterial Blood Potassium 3.1 L Venous Blood Potassium Ur L.pneumophila Ag 07/09/18 07/09/18 07/09/18 11:30 12:16 13:15 WBC RBC Hgb Hct MCV MCH MCHC RDW Plt Count MPV Neut % (Auto) Lymph % (Auto) Lea % (Auto) Eos % (Auto) Baso % (Auto) Lymph # (Auto) Lea # (Auto) Eos # (Auto) Baso # (Auto) Absolute Neuts (auto) Neutrophils % (Manual) Band Neutrophils % Lymphocytes % (Manual) Monocytes % (Manual) Metamyelocytes % Platelet Evaluation PT 13.3 H INR 1.18 APTT 58.0 H pCO2 pO2 HCO3 ABG pH ABG Total CO2 ABG O2 Saturation ABG Base Excess ABG Potassium VBG pH VBG pCO2 VBG HCO3 VBG Total CO2 VBG O2 Sat (Calc) VBG Base Excess VBG Potassium Sodium Chloride Glucose Lactate FiO2 Crit Value Called To Crit Value Called By Blood Gas Notified Time Potassium Carbon Dioxide Anion Gap BUN Creatinine Est GFR ( Amer) Est GFR (Non-Af Amer) POC Glucose (mg/dL) 93 Random Glucose Hemoglobin A1c Calcium Phosphorus Magnesium Total Bilirubin AST ALT Alkaline Phosphatase Troponin I Total Protein Albumin Globulin Albumin/Globulin Ratio Triglycerides Cholesterol LDL Cholesterol Direct HDL Cholesterol Procalcitonin Thyroxine (T4) Arterial Blood Potassium Venous Blood Potassium Ur L.pneumophila Ag Negative 07/09/18 07/09/18 15:20 17:00 WBC RBC Hgb Hct MCV MCH MCHC RDW Plt Count MPV Neut % (Auto) Lymph % (Auto) Lea % (Auto) Eos % (Auto) Baso % (Auto) Lymph # (Auto) Lea # (Auto) Eos # (Auto) Baso # (Auto) Absolute Neuts (auto) Neutrophils % (Manual) Band Neutrophils % Lymphocytes % (Manual) Monocytes % (Manual) Metamyelocytes % Platelet Evaluation PT INR APTT pCO2 37 pO2 191.0 H HCO3 26.3 ABG pH 7.46 H ABG Total CO2 27.4 ABG O2 Saturation 100.2 H ABG Base Excess 2.5 ABG Potassium 3.2 L VBG pH VBG pCO2 VBG HCO3 VBG Total CO2 VBG O2 Sat (Calc) VBG Base Excess VBG Potassium Sodium 139 139.0 Chloride 103 105.0 Glucose 111 H Lactate 0.9 FiO2 70.0 Crit Value Called To Crit Value Called By Blood Gas Notified Time Potassium 3.4 L Carbon Dioxide 25 Anion Gap 14 BUN 16 Creatinine 0.6 L Est GFR ( Amer) > 60 Est GFR (Non-Af Amer) > 60 POC Glucose (mg/dL) Random Glucose 98 Hemoglobin A1c Calcium 8.2 L Phosphorus 3.1 Magnesium 2.1 Total Bilirubin 0.6 AST 250 H ALT 132 H Alkaline Phosphatase 86 Troponin I Total Protein 7.0 Albumin 3.9 Globulin 3.1 Albumin/Globulin Ratio 1.2 Triglycerides Cholesterol LDL Cholesterol Direct HDL Cholesterol Procalcitonin Thyroxine (T4) Arterial Blood Potassium 3.2 L Venous Blood Potassium Ur L.pneumophila Ag Radiology Impressions: Radiology Impressions Chest X-Ray 07/09/18 07:00 IMPRESSION: There is dense consolidation in the right upper lobe consistent with pneumonia or lobar atelectasis. EKG/Cardiology Studies: Cardiology / EKG Studies 07/08/18 22:30 EKG [ELECTROCARDIOGRAM] Q8H Comment: Reason For Exam: code freeze 07/09/18 06:30 EKG [ELECTROCARDIOGRAM] Q8H Comment: Reason For Exam: code freeze 07/09/18 07:00 EKG [ELECTROCARDIOGRAM] Routine Comment: Reason For Exam: cardiac arrest 07/09/18 09:30 EKG [ELECTROCARDIOGRAM] Routine Comment: Reason For Exam: Code freeze 07/09/18 14:30 EKG [ELECTROCARDIOGRAM] Q8H Comment: Reason For Exam: code freeze 07/09/18 16:00 EKG [ELECTROCARDIOGRAM] Routine Comment: Reason For Exam: code freeze Critical Care Progress Note - Nutrition Nutrition: Nutrition Category Date Time Status NPO Diet [DIET] Diets 07/08/18 Dinner Ordered Addendum Addendum: 07/09/18 18:11 MICU Attending Addendum Patient seen and examined with housestaff case discussed on round agree with resident note above with the following additions/exceptions: 48 yo M with unknown PMH who presented via EMS s/p VFIB cardiac arrest and s/p ROSC. Currently in cooling phase of targetted temp protocol on nimbex follow lytes cont amio f/u cardio recs hold off on neuroprognostication until at least 72 hours start ASA for MO on heparin drip low Vt ventilation broad spcedtrum abx as per ID Rest of care as mentioned in above resident note Susana Boone MD Pulmonary Critical Care Sleep Medicine
[2018-07-09 10:24] LABS: HEMOGLOBIN 14.5 g/dL (14.0-18.0); LYMPH # 1.2 (1.2-3.4); LYMPH % 4.2 % (22.0-35.0); MEAN CELL VOLUME 93.9 fl (80.0-105.0); MEAN CORPUSCULAR HEMOGLOBIN 31.5 pg (25.0-35.0); MEAN CORPUSCULAR HGB CONC 33.6 g/dl (31.0-37.0); MEAN PLATELET VOLUME 9.9 fl (7.0-11.0); MONO # 1.1 (0.1-0.6); MONO % 3.9 % (1.0-6.0); RBC 4.6 10^6/uL (3.5-6.1); RED CELL DISTRIBUTION WIDTH 12.3 % (11.5-14.5)
[2018-07-09 10:26] LABS: WHITE BLOOD COUNT 27.2 10^3/uL (4.5-11.0)
[2018-07-09] MEDS: Fentanyl 1000mcg/100ml NS 1,000 MCG/100 ML BAG IV PRN (10:59)
--- NOTE | 2018-07-09 12:37 | CP.PCM.PN ---
<Lorena Dykes - Last Filed: 07/09/18 13:00> Subjective - Date & Time of Evaluation Date of Evaluation: 07/09/18 Time of Evaluation: 09:30 - Subjective Subjective: Lorena Dykes, PGY1 Medicine Progress Note: Pt was seen and examined this AM at bedside. Pt is intubated and sedated at this time and is unable to participate in ROS. Yesterday in the ICU the pt was paralyzed and made a code freeze after achieving ROSC. Pt will continue to be monitored in ICU setting at this time. Objective - Vital Signs/Intake and Output Vital Signs (last 24 hours): Temp Pulse Resp BP Pulse Ox 93.2 F L 63 20 122/96 H 100 07/09/18 11:00 07/09/18 11:00 07/08/18 18:10 07/09/18 11:00 07/09/18 11:00 Intake and Output: 07/09/18 07/09/18 06:59 18:59 Intake Total 1600 205 Output Total 600 Balance 1000 205 - Medications Medications: Current Medications Artificial Tears (Puralube Opht Oint) 1 appl OU Q4H PRN PRN Reason: Dry eyes Artificial Tears (Refresh Opth Soln) 0.3 ml OU Q4H PRN PRN Reason: Dry eyes Last Admin: 07/09/18 10:37 Dose: 2 d Aspirin (Aspirin Supp) 300 mg RC DAILY [facility] Famotidine (Pepcid) 20 mg IVP DAILY [facility] Last Admin: 07/09/18 09:43 Dose: 20 mg Fentanyl Citrate (Fentanyl Citrate/Sodium Chloride 1 Mg/100 Ml) 1,000 mcg in 100 mls @ 2 mls/hr IV .Q24H PRN; Protocol PRN Reason: TITRATE PER MD ORDER Last Admin: 07/09/18 10:59 Dose: 90 mcg/hr, 9 mls/hr Propofol (Diprivan) 1,000 mg in 100 mls @ 2.245 mls/hr IV .Q24H PRN; Protocol PRN Reason: TITRATE PER MD ORDER Last Admin: 07/09/18 11:43 Dose: 35 mcg/kg/min, 15.717 mls/hr Cefepime HCl (Maxipime 2gm) 2 gm in 100 mls @ 100 mls/hr IVPB Q12 RITA; Protocol Stop: 07/13/18 23:01 Last Admin: 07/09/18 09:44 Dose: 100 mls/hr Heparin Sodium/Sodium Chloride (Heparin 59573 Units/250ml 1/2 Normal Saline) 25,000 units in 250 mls @ 8.981 mls/hr IV .Q24H RITA; Protocol Last Titration: 07/08/18 23:25 Dose: 9 units/kg/hr, 6.736 mls/hr Amiodarone HCl/Dextrose (Nexterone 360 Mg In D5w 200 Ml (Premix)) 360 mg in 200 mls @ 16.667 mls/hr IV .Q12H RITA; Protocol Last Admin: 07/08/18 23:30 Dose: 16.667 mls/hr Cisatracurium Besylate 200 mg/ (Sodium Chloride) 200 mls @ 2.3 mls/hr IV .Q24H PRN; Protocol PRN Reason: TITRATE PER MD ORDER Last Titration: 07/09/18 09:54 Dose: 1 mcg/kg/min, 4.59 mls/hr Potassium Phosphate 15 mmole/ (Sodium Chloride) 255 mls @ 42.5 mls/hr IVPB ONCE ONE Stop: 07/09/18 15:14 Last Admin: 07/09/18 10:36 Dose: 42.5 mls/hr Vancomycin HCl (Vancomycin 1gm) 1 gm in 250 mls @ 167 mls/hr IVPB Q12H RITA; Protocol - Labs Labs: 07/09/18 10:15 07/09/18 05:20 PT 12.4 SECONDS (9.4-12.5) 07/08/18 14:20 INR 1.12 07/08/18 14:20 APTT 69.1 Seconds (26.9-38.3) H 07/09/18 05:20 - Constitutional Appears: Intubated, Sedated - Head Exam Head Exam: ATRAUMATIC, NORMAL INSPECTION, NORMOCEPHALIC - Eye Exam Pupil Exam: Miosis, Additional Comments: pupils reactive but sluggish - ENT Exam ENT Exam: Mucous Membranes Dry - Respiratory Exam Additional comments: intubated, on vent - Cardiovascular Exam Cardiovascular Exam: REGULAR RHYTHM, +S1, +S2 - GI/Abdominal Exam GI & Abdominal Exam: Soft - Extremities Exam Extremities exam: Negative for: pedal edema - Neurological Exam Neurological exam: Altered - Skin Skin Exam: Normal Color, Warm Assessment & Plan - Assessment and Plan (Free Text) Assessment: 48 year old male presented to the emergency department, with unknown past medical history brought in by ambulance after a witnessed cardiac arrest with ventricular fibrillation. s/p CPR for 25 minutes, 3x epinephrines, 2 narcans, 5 shocks and 3x Amiodarone in the field. Pt achieved ROSC and is on code freeze protocol. Plan: Cardiac Arrest s/p ROSC - Pt had vfib in field, 5x shock s/p ROSC - Pt under Code freeze protocol - EKG shows NSR @ 68. L axis deviation - Initial trop .06, 9.05, 7.6 - Urine tox positive for opioids and cannibinoids - Cardio consulted, Dr. Guerrero, no plan for intervention - Cont Heparin drip - Cont amiodarone drip - Cont propofol drip - Pt on Nimedx during code freeze - Cont fentanyl drip - Hemoglobin A1C - lipid panel - CHol 184, LDL - 84, HDL - 85 - TSH/T4 - TSH = 6.37, T4 = wnl - Echo pending - Monitored in the ICU CXR/CT chest with bilateral pulmonary edema, possible infiltrates - likely secondary from aspiration - Cont cefepime and vanc in ICU - lasix dose given in ED - continue to monitor - repeat chest xray in AM - Dense consolidation in RUL consistent with PNA or atelectasis AMS secondary to cardiac arrest - Possible anoxic injury - Pt is on code freeze protocol - CT head negative for acute pathology - Currently sedated - Propofol, fentanyl drip - Neurology, consulted, Dr. Hackett follow recs - Seizure precautions - Neuro checks PPx: GI: Protonix 40 IVP DVT: Pt is code freeze Case seen and discussed with Dr. Garcia <Brayden Garcia - Last Filed: 07/10/18 16:44> Objective - Vital Signs/Intake and Output Vital Signs (last 24 hours): Temp Pulse Resp BP Pulse Ox 99.5 F 82 33 H 139/83 98 07/10/18 12:20 07/10/18 12:20 07/10/18 07:39 07/10/18 12:00 07/10/18 12:20 Intake and Output: 07/10/18 07/10/18 06:59 18:59 Intake Total 592 0 Output Total 450 Balance 142 0 - Medications Medications: Current Medications Amiodarone HCl (Cordarone) 400 mg PO BID [facility] Last Admin: 07/10/18 09:36 Dose: 400 mg Artificial Tears (Puralube Opht Oint) 1 appl OU Q4H PRN PRN Reason: Dry eyes Artificial Tears (Refresh Opth Soln) 0.3 ml OU Q4H PRN PRN Reason: Dry eyes Last Admin: 07/09/18 10:37 Dose: 2 d Aspirin (Aspirin Supp) 300 mg RC DAILY [facility] Last Admin: 07/10/18 09:36 Dose: 300 mg Famotidine (Pepcid) 20 mg IVP DAILY [facility] Last Admin: 07/10/18 09:36 Dose: 20 mg Fentanyl Citrate (Fentanyl Citrate/Sodium Chloride 1 Mg/100 Ml) 1,000 mcg in 100 mls @ 2 mls/hr IV .Q24H PRN; Protocol PRN Reason: TITRATE PER MD ORDER Last Titration: 07/10/18 02:25 Dose: Infused Propofol (Diprivan) 1,000 mg in 100 mls @ 2.245 mls/hr IV .Q24H PRN; Protocol PRN Reason: TITRATE PER MD ORDER Last Titration: 07/10/18 07:45 Dose: 20 mcg/kg/min, 8.981 mls/hr Heparin Sodium/Sodium Chloride (Heparin 97869 Units/250ml 1/2 Normal Saline) 25,000 units in 250 mls @ 8.981 mls/hr IV .Q24H RITA; Protocol Last Admin: 07/10/18 05:34 Dose: 8 units/kg/hr, 5.987 mls/hr Vancomycin HCl (Vancomycin 1gm) 1 gm in 250 mls @ 167 mls/hr IVPB Q12H RITA; Protocol Last Admin: 07/10/18 10:55 Dose: 167 mls/hr Doxycycline Hyclate 100 mg/ (Sodium Chloride) 100 mls @ 100 mls/hr IVPB Q12 RITA; Protocol Last Admin: 07/10/18 09:36 Dose: 100 mls/hr Piperacillin Sod/Tazobactam Sod (Zosyn 3.375 In Ns 100ml) 100 mls @ 200 mls/hr IVPB Q6 RITA; Protocol Stop: 07/17/18 00:01 Last Admin: 07/10/18 14:40 Dose: 200 mls/hr - Labs Labs: 07/10/18 04:30 07/10/18 04:30 PT 12.7 SECONDS (9.4-12.5) H 07/09/18 21:10 INR 1.14 07/09/18 21:10 APTT 33.6 Seconds (26.9-38.3) 07/10/18 13:30 Attending/Attestation - Attestation I have personally seen and examined this patient.: Yes I have fully participated in the care of the patient.: Yes I have reviewed all pertinent clinical information, including history, physical exam and plan: Yes Notes (Text): 07/10/18 14:59 Attending note; Patient seen and examined with resident in ICU. Patient is currently intubated. Currently on propofol and cisatacurium and sedated. Patient is a 48 year old male presented to the emergency department, with unknown past medical history brought in by ambulance after a witnessed cardiac arrest with ventricular fibrillation. 1. Status Post cardiac arrest; currently intubated and sedated. Patient had episodes of V. fib and cardioverted in the field. Approximate down time is 25 minutes. Started on amiodarone drip. Case discussed with marine consultant in detail. Started on IV heparin drip. head CT is negative for acute findings. CT cervical spine is negative for acute fracture. CT abdomen and pelvis showed bilateral infiltrates suggesting aspiration pneumonitis and pleural effusion. Mildly distended colon noted. 2. VF/ Arrhythmia; Continue amiodarone drip and heparin drip. Patient has unusual P axis or junctional rhythm and EKG. Follow Up with cardiology closely. EchoCardiogram ordered. 3. Status post intubation; weaning parameters as per ICU. 4. Urine drug screen is positive for opiates and cannabis. 5. leukocytosis; mostly secondary to aspiration pneumonia. Blood and urine cultures negative so far. ID evaluation appreciated. Currently on vancomycin, Zosyn and doxycycline. Monitor patient closely in ICU. 07/10/18 16:44
[2018-07-09 13:38] LABS: INR 1.18; PROTHROMBIN TIME 13.3 SECONDS (9.4-12.5)
--- NOTE | 2018-07-09 14:28 | PN ---
DATE: 07/09/2018 CARDIOLOGY FOLLOWUP SUBJECTIVE: The patient remains on a ventilator and sedated. PHYSICAL EXAMINATION VITAL SIGNS: Blood pressure is 134/100 and heart rate is in the 60s. NECK: Negative JVD. LUNGS: Without rales. HEART: Reveals S1 and S2. EXTREMITIES: Without edema. LABORATORY DATA: White count is up to 25,000. Chemistries, BUN and creatinine unremarkable. Troponin is up to 7.6. Preliminary echocardiogram reveals a dilated and diffusely hypokinetic LV with an EF of less than 20%. IMPRESSION: 1. Ventricular fibrillation arrest. 2. 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 4. Non-ST elevation myocardial infarction. 5. Diabetes mellitus. Given these findings, we will continue the IV amiodarone and anticoagulation. Awaiting Neuro input. Kelby Guerrero MD
[2018-07-09] MEDS: Vancomycin 1gm in NS 250ml 1 GM/250 ML BAG IVPB SCH ×2 (14:40→22:10)
[2018-07-09 16:01] LABS: ALB/GLOB RATIO 1.2 (1.1-1.8); ALBUMIN 3.9 g/dL (3.0-4.8); ALT/SGPT 132 U/L (7-56); AST/SGOT 250 U/L (17-59); BLOOD UREA NITROGEN 16 mg/dL (7-21); CALCIUM 8.2 mg/dL (8.4-10.5); GFR NON-AFRICAN AMERICAN > 60
[2018-07-09 17:13] LABS: ARTERIAL BLOOD GAS HCO3 26.3 mmol/L (21-28); ARTERIAL BLOOD GAS O2 SAT 100.2 % (95-98); ARTERIAL BLOOD GAS PCO2 37 mm/Hg (35-45); ARTERIAL BLOOD GAS PH 7.46 (7.35-7.45); ARTERIAL BLOOD GAS TCO2 27.4 mmol.L (22-28)
[2018-07-09] MEDS: Heparin25000 units/250ml 1/2NS 25,000 UNITS/250 ML BAG IV SCH (19:00)
--- NOTE | 2018-07-09 19:50 | CARD ---
APPROVED REPORT Date of service: 07/09/2018 EKG Measurement Heart [id number] [id number] <Conclusion> Unusual P axis, possible ectopic atrial rhythm Nonspecific T wave abnormality Prolonged QT Abnormal ECG
--- NOTE | 2018-07-09 20:09 | CARD ---
APPROVED REPORT Date of service: 07/09/2018 EKG Measurement Heart [id number] <Conclusion> Unusual P axis, possible ectopic atrial rhythm with occasional premature ventricular complexes Nonspecific T wave abnormality Prolonged QT Abnormal ECG
--- NOTE | 2018-07-09 20:48 | CARD ---
APPROVED REPORT Date of service: 07/09/2018 EXAM: Two-dimensional and M-mode echocardiogram with Doppler and color Doppler. INDICATION CARDIAC ARREST 2D DIMENSIONS Left Atrium (2D)3.1 (1.6-4.0cm)IVSd1.0 (0.7-1.1cm) LVDd4.7 (3.9-5.9cm)PWd1.0 (0.7-1.1cm) LVDs4.4 (2.5-4.0cm)FS (%) 5.9 % LVEF (%)13.0 (>50%) M-Mode DIMENSIONS Aortic Root2.90 (2.2-3.7cm)Aortic Cusp Exc.1.20 (1.5-2.0cm) Aortic Valve AoV Peak Vknqhpig03.7cm/May Peak GR.3mmHg Mitral Valve E/A ratio0.0 TDI E/Lateral E'0.0E/Medial E'0.0 LEFT VENTRICLE The left ventricle is normal size. There is normal left ventricular wall thickness. The systolic function is severely impaired. Significant regional wall motion abnormalities noted. Transmitral Doppler flow pattern is abnormal. RIGHT VENTRICLE The right ventricle is mildly dilated. There is normal right ventricular wall thickness. Systolic function is moderately reduced. ATRIA The left atrium size is normal. The right atrium size is normal. AORTIC VALVE The aortic valve is probably bicuspid. There is trace aortic regurgitation. MITRAL VALVE The mitral valve is mildly thickened. Mitral regurgitation is mild to moderate. TRICUSPID VALVE There is trace tricuspid regurgitation. GREAT VESSELS The aortic root is normal in size. PERICARDIAL EFFUSION There is a small pericardial effusion. <Conclusion> The left ventricle is normal size. There is normal left ventricular wall thickness. The systolic function is severely impaired. Significant regional wall motion abnormalities noted. Mitral regurgitation is mild to moderate. There is trace aortic regurgitation.
[2018-07-09 21:38] LABS: INR 1.14; PARTIAL THROMBOPLASTIN TIME 43.7 Seconds (26.9-38.3); PROTHROMBIN TIME 12.7 SECONDS (9.4-12.5)
[2018-07-09 22:00] LABS: BLOOD UREA NITROGEN 16 mg/dL (7-21); CALCIUM 8.1 mg/dL (8.4-10.5); GFR NON-AFRICAN AMERICAN > 60
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
--- NOTE | 2018-07-09 22:46 | CARD ---
APPROVED REPORT Date of service: 07/09/2018 EKG Measurement Heart [id number] <Conclusion> Unusual P axis, possible ectopic atrial rhythm or junctional rhythm Left axis deviation Intraventricular conduction delay of RBBB type Nonspecific T wave abnormality Prolonged QT Abnormal ECG
[2018-07-09] MEDS ORDERED: Amiodarone 360 mg/D5W 200 ml 360 MG/200 ML BAG IV SCH (23:30)
[2018-07-10] MEDS: Piperacillin/Tazobact 3.375 gm 100 ML IVPB SCH ×4 (00:05→18:25)
[2018-07-10] MEDS: Propofol 10 mg/ml 1,000 MG/100 ML VIAL IV PRN ×2 (00:24→22:05)
[2018-07-10 01:43] LABS: BLOOD UREA NITROGEN 15 mg/dL (7-21); CALCIUM 8.3 mg/dL (8.4-10.5); GFR NON-AFRICAN AMERICAN > 60
[2018-07-10 04:41] LABS: HEMOGLOBIN 13.6 g/dL (14.0-18.0); LYMPH # 1.3 (1.2-3.4); LYMPH % 5.4 % (22.0-35.0); MEAN CELL VOLUME 92.4 fl (80.0-105.0); MEAN CORPUSCULAR HEMOGLOBIN 31.4 pg (25.0-35.0); MEAN PLATELET VOLUME 9.8 fl (7.0-11.0); MONO # 1.1 (0.1-0.6); MONO % 4.7 % (1.0-6.0); RBC 4.33 10^6/uL (3.5-6.1); RED CELL DISTRIBUTION WIDTH 12.4 % (11.5-14.5); WHITE BLOOD COUNT 23.5 10^3/uL (4.5-11.0)
[2018-07-10 04:48] LABS: ALB/GLOB RATIO 1.3 (1.1-1.8); ALBUMIN 3.6 g/dL (3.0-4.8); ALT/SGPT 138 U/L (7-56); AST/SGOT 263 U/L (17-59); BLOOD UREA NITROGEN 16 mg/dL (7-21); CALCIUM 8.4 mg/dL (8.4-10.5); GFR NON-AFRICAN AMERICAN > 60
[2018-07-10] MEDS: Heparin25000 units/250ml 1/2NS 25,000 UNITS/250 ML BAG IV SCH (05:34)
[2018-07-10 05:49] LABS: ARTERIAL BLOOD GAS HCO3 29.5 mmol/L (21-28); ARTERIAL BLOOD GAS HEMOGLOBIN 13.2 g/dL (11.7-17.4); ARTERIAL BLOOD GAS O2 CAPACITY 18.5 mL/dl (16-24); ARTERIAL BLOOD GAS O2 CONTENT 18.5 ML/dl (15-23); ARTERIAL BLOOD GAS O2 SAT 99.8 % (95-98); ARTERIAL BLOOD GAS PCO2 37 mm/Hg (35-45); ARTERIAL BLOOD GAS PH 7.51 (7.35-7.45); ARTERIAL BLOOD GAS TCO2 30.6 mmol.L (22-28)
[2018-07-10] MEDS: Amiodarone 360 mg/D5W 200 ml 360 MG/200 ML BAG IV SCH (06:55)
--- NOTE | 2018-07-10 09:05 | CP.CCUPN ---
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 Cardio: Maintaining MAP > 65 without pressor support Troponin elevation may be 2/2 demand ischemia Repeat EKG this AM without significant changes from prior TTE completed, showed severely depressed LVEF of 13% Will begin to transition to PO amiodarone and d/c drip Per cardiology, patient is not a candidate for cath at this time Would not consider ICD placement until repeat TTE 6 months after incident Cardiology following, all recs appreciated Pulm: Patient continues to improve on weaning trials Will decrease sedation as much as possible with plan for possible extubation tomorrow Vent settings: 450/20/5, decrease FiO2 to 40% Appropriate ventilator management as follows: Maintain head of bed > 30 degrees Maintain oral hygiene Daily ABG and CXR Daily sedation and weaning trials with assessment of readiness to wean Endo: Random glucose: 95 Maintain glucose between 140-180 GI: NPO, on ventilator Appropriate GI ppx /Nephro: Renal function parameters stable Serial BMPs overnight showed resolution of prior hypokalemia Monitor UOP closely New metabolic alkalosis likely 2/2 contraction alkalosis, will not pursue further diuresis Replete electrolytes PRN Heme/Onc: H/H stable, no signs of acute blood loss Continue serial H/H monitoring ID: Empiric vanc/cefepime/doxycycline started upon arrival to MICU Suspect leukocytosis is likely reactionary, but continue to monitor Continue empiric vanc, doxy, and zosyn as per ID recs ID following, all recs appreciated DVT/GI PPX: Heparin drip/pepcid Full Code NPO Monitor in MICU Patient seen, examined with, and plan confirmed with my attending Dr. Emily Garibay D.O. IM Resident PGY-1 Pager: [phone] <Susana Boone - Last Filed: 07/10/18 18:12> CCU Objective - Vital Signs / Intake & Output Vital Signs (Last 4 hours): Vital Signs Temp Pulse BP Pulse Ox 07/10/18 18:00 99.9 F H 89 147/94 H 97 07/10/18 17:50 99.9 F H 78 96 07/10/18 17:40 99.9 F H 78 96 07/10/18 17:30 99.9 F H 97 H 149/108 H 95 07/10/18 17:20 99.7 F H 84 99 07/10/18 17:10 91 H 97 07/10/18 17:00 94 H 145/96 H 98 07/10/18 16:50 94 H 99 07/10/18 16:40 90 100 07/10/18 16:30 76 136/78 99 07/10/18 16:20 77 99 07/10/18 16:10 80 97 07/10/18 16:00 81 136/86 07/10/18 15:59 77 98 07/10/18 15:50 94 H 98 07/10/18 15:40 75 135/82 100 07/10/18 15:30 75 99 07/10/18 15:24 76 99 07/10/18 15:04 99.7 F H 07/10/18 15:00 99.9 F H 95 H 144/100 H 97 07/10/18 14:50 99.9 F H 91 H 98 07/10/18 14:40 99.7 F H 93 H 98 07/10/18 14:30 99.9 F H 91 H 148/92 H 99 07/10/18 14:20 99.9 F H 77 99 Intake and Output (Last 8hrs): Intake & Output 07/10/18 07/10/18 07/10/18 06:59 14:59 22:59 Intake Total 222 0 200 Output Total 450 Balance -228 0 200 Weight 73.936 kg Intake: IV 222 0 200 Output: Urine 450 Urethral (Parr) 450 - Medications Active Medications: Active Medications Generic Name Dose Route Start Last Admin Trade Name Freq PRN Reason Stop Dose Admin Amiodarone HCl 400 mg 07/10/18 10:00 07/10/18 09:36 Cordarone PO 400 mg BID RITA Administration Artificial Tears 1 appl 07/08/18 18:58 Puralube Opht Oint OU Q4H PRN Dry eyes Artificial Tears 0.3 ml 07/09/18 09:09 07/09/18 10:37 Refresh Opth Soln OU 2 d Q4H PRN Administration Dry eyes Aspirin 300 mg 07/10/18 10:00 07/10/18 09:36 Aspirin Supp RC 300 mg DAILY RITA Administration Famotidine 20 mg 07/09/18 10:00 07/10/18 09:36 Pepcid IVP 20 mg DAILY RITA Administration Fentanyl Citrate 1,000 mcg in 100 mls @ 2 mls/hr 07/08/18 16:37 07/10/18 02:25 Fentanyl Citrate/Sodium Chloride 1 Mg/100 Ml IV Infused .Q24H PRN Titration TITRATE PER MD ORDER Protocol 20 MCG/HR Propofol 1,000 mg in 100 mls @ 2.245 mls/hr 07/08/18 16:37 07/10/18 07:45 Diprivan IV 20 mcg/kg/min .Q24H PRN 8.981 mls/hr TITRATE PER MD ORDER Titration Protocol 5 MCG/KG/MIN Heparin Sodium/Sodium Chloride 25,000 units in 250 mls @ 8.981 mls/hr 07/08/18 23:37 07/10/18 15:48 Heparin 44728 Units/250ml 1/2 Normal Saline IV 12 units/kg/hr .Q24H RITA 8.981 mls/hr Titration Protocol 12 UNITS/KG/HR Vancomycin HCl 1 gm in 250 mls @ 167 mls/hr 07/09/18 11:00 07/10/18 10:55 Vancomycin 1gm IVPB 167 mls/hr Q12H RITA Administration Protocol Doxycycline Hyclate 100 mg/ 100 mls @ 100 mls/hr 07/09/18 22:00 07/10/18 09:36 Sodium Chloride IVPB 100 mls/hr Q12 RITA Administration Protocol Piperacillin Sod/Tazobactam Sod 100 mls @ 200 mls/hr 07/10/18 00:00 07/10/18 14:40 Zosyn 3.375 In Ns 100ml IVPB 07/17/18 00:01 200 mls/hr Q6 RITA Administration Protocol - Patient Studies Lab Studies: Microbiology Studies 07/09/18 15:20 Blood Culture - Preliminary Blood NO GROWTH AFTER 24 HOURS 07/08/18 15:15 Blood Culture - Preliminary Blood-Venous NO GROWTH AFTER 48 HOURS 07/08/18 14:40 Blood Culture - Preliminary Blood-Venous NO GROWTH AFTER 48 HOURS 07/08/18 18:11 MRSA Culture (Admit) - Final Naris MRSA NOT DETECTED Lab Studies 07/10/18 07/10/18 07/10/18 Range/Units 13:30 06:07 05:30 WBC (4.5-11.0) 10^3/uL RBC (3.5-6.1) 10^6/uL Hgb (14.0-18.0) g/dL Hct (42.0-52.0) % MCV (80.0-105.0) fl MCH (25.0-35.0) pg MCHC (31.0-37.0) g/dl RDW (11.5-14.5) % Plt Count (120.0-450.0) 10^3/uL MPV (7.0-11.0) fl Neut % (Auto) (50.0-68.0) % Lymph % (Auto) (22.0-35.0) % Glynn % (Auto) (1.0-6.0) % Eos % (Auto) (1.5-5.0) % Baso % (Auto) (0.0-3.0) % Lymph # (Auto) (1.2-3.4) Glynn # (Auto) (0.1-0.6) Eos # (Auto) (0.0-0.7) Baso # (Auto) (0.0-2.0) K/mm3 Absolute Neuts (auto) (1.4-6.5) PT (9.4-12.5) SECONDS INR APTT 33.6 (26.9-38.3) Seconds pCO2 37 (35-45) mm/Hg pO2 201.0 H (80-100) mm/Hg HCO3 29.5 H (21-28) mmol/L ABG pH 7.51 H (7.35-7.45) ABG Total CO2 30.6 H (22-28) mmol.L ABG O2 Saturation 99.8 H (95-98) % ABG O2 Content 18.5 (15-23) ML/dl ABG Base Excess 6.2 H (-2.0-3.0) mmol/L ABG Hemoglobin 13.2 (11.7-17.4) g/dL ABG Carboxyhemoglobin 1.6 H (0.5-1.5) % POC ABG HHb (Measured) 0.2 (0-5) % ABG Methemoglobin 1.0 (0.0-3.0) % ABG O2 Capacity 18.5 (16-24) mL/dl Hgb O2 Saturation 97.2 (95.0-98.0) % FiO2 50.0 % Sodium (132-148) mmol/L Potassium (3.6-5.0) mmol/L Chloride (98-107) mmol/L Carbon Dioxide (21-33) mmol/L Anion Gap (10-20) BUN (7-21) mg/dL Creatinine (0.8-1.5) mg/dl Est GFR ( Amer) Est GFR (Non-Af Amer) POC Glucose (mg/dL) 95 (65-110) mg/dL Random Glucose (70-110) mg/dL Calcium (8.4-10.5) mg/dL Ionized Calcium (4.80-5.60) mg/dL Phosphorus (2.5-4.5) mg/dL Magnesium (1.7-2.2) mg/dL Total Bilirubin (0.2-1.3) mg/dL AST (17-59) U/L ALT (7-56) U/L Alkaline Phosphatase (38-126) U/L Total Protein (5.8-8.3) g/dL Albumin (3.0-4.8) g/dL Globulin gm/dL Albumin/Globulin Ratio (1.1-1.8) Procalcitonin (0.19-0.49) NG/ML 07/10/18 07/10/18 07/10/18 Range/Units 04:30 04:30 04:30 WBC 23.5 H (4.5-11.0) 10^3/uL RBC 4.33 (3.5-6.1) 10^6/uL Hgb 13.6 L (14.0-18.0) g/dL Hct 40.0 L (42.0-52.0) % MCV 92.4 (80.0-105.0) fl MCH 31.4 (25.0-35.0) pg MCHC 34.0 (31.0-37.0) g/dl RDW 12.4 (11.5-14.5) % Plt Count 166 (120.0-450.0) 10^3/uL MPV 9.8 (7.0-11.0) fl Neut % (Auto) 89.9 H (50.0-68.0) % Lymph % (Auto) 5.4 L (22.0-35.0) % Glynn % (Auto) 4.7 (1.0-6.0) % Eos % (Auto) 0.0 L (1.5-5.0) % Baso % (Auto) 0.0 (0.0-3.0) % Lymph # (Auto) 1.3 (1.2-3.4) Glynn # (Auto) 1.1 H (0.1-0.6) Eos # (Auto) 0.0 (0.0-0.7) Baso # (Auto) 0.00 (0.0-2.0) K/mm3 Absolute Neuts (auto) 21.12 H (1.4-6.5) PT (9.4-12.5) SECONDS INR APTT 101.3 H* (26.9-38.3) Seconds pCO2 (35-45) mm/Hg pO2 (80-100) mm/Hg HCO3 (21-28) mmol/L ABG pH (7.35-7.45) ABG Total CO2 (22-28) mmol.L ABG O2 Saturation (95-98) % ABG O2 Content (15-23) ML/dl ABG Base Excess (-2.0-3.0) mmol/L ABG Hemoglobin (11.7-17.4) g/dL ABG Carboxyhemoglobin (0.5-1.5) % POC ABG HHb (Measured) (0-5) % ABG Methemoglobin (0.0-3.0) % ABG O2 Capacity (16-24) mL/dl Hgb O2 Saturation (95.0-98.0) % FiO2 % Sodium 139 (132-148) mmol/L Potassium 4.2 (3.6-5.0) mmol/L Chloride 104 (98-107) mmol/L Carbon Dioxide 29 (21-33) mmol/L Anion Gap 11 (10-20) BUN 16 (7-21) mg/dL Creatinine 0.8 (0.8-1.5) mg/dl Est GFR ( Amer) > 60 Est GFR (Non-Af Amer) > 60 POC Glucose (mg/dL) (65-110) mg/dL Random Glucose 95 (70-110) mg/dL Calcium 8.4 (8.4-10.5) mg/dL Ionized Calcium (4.80-5.60) mg/dL Phosphorus 3.2 (2.5-4.5) mg/dL Magnesium 1.7 (1.7-2.2) mg/dL Total Bilirubin 0.8 (0.2-1.3) mg/dL AST 263 H (17-59) U/L ALT 138 H (7-56) U/L Alkaline Phosphatase 84 (38-126) U/L Total Protein 6.5 (5.8-8.3) g/dL Albumin 3.6 (3.0-4.8) g/dL Globulin 2.9 gm/dL Albumin/Globulin Ratio 1.3 (1.1-1.8) Procalcitonin (0.19-0.49) NG/ML 07/10/18 07/10/18 07/10/18 Range/Units 04:30 01:08 00:14 WBC (4.5-11.0) 10^3/uL RBC (3.5-6.1) 10^6/uL Hgb (14.0-18.0) g/dL Hct (42.0-52.0) % MCV (80.0-105.0) fl MCH (25.0-35.0) pg MCHC (31.0-37.0) g/dl RDW (11.5-14.5) % Plt Count (120.0-450.0) 10^3/uL MPV (7.0-11.0) fl Neut % (Auto) (50.0-68.0) % Lymph % (Auto) (22.0-35.0) % Glynn % (Auto) (1.0-6.0) % Eos % (Auto) (1.5-5.0) % Baso % (Auto) (0.0-3.0) % Lymph # (Auto) (1.2-3.4) Glynn # (Auto) (0.1-0.6) Eos # (Auto) (0.0-0.7) Baso # (Auto) (0.0-2.0) K/mm3 Absolute Neuts (auto) (1.4-6.5) PT (9.4-12.5) SECONDS INR APTT (26.9-38.3) Seconds pCO2 (35-45) mm/Hg pO2 (80-100) mm/Hg HCO3 (21-28) mmol/L ABG pH (7.35-7.45) ABG Total CO2 (22-28) mmol.L ABG O2 Saturation (95-98) % ABG O2 Content (15-23) ML/dl ABG Base Excess (-2.0-3.0) mmol/L ABG Hemoglobin (11.7-17.4) g/dL ABG Carboxyhemoglobin (0.5-1.5) % POC ABG HHb (Measured) (0-5) % ABG Methemoglobin (0.0-3.0) % ABG O2 Capacity (16-24) mL/dl Hgb O2 Saturation (95.0-98.0) % FiO2 % Sodium 139 (132-148) mmol/L Potassium 4.0 (3.6-5.0) mmol/L Chloride 102 (98-107) mmol/L Carbon Dioxide 30 (21-33) mmol/L Anion Gap 10 (10-20) BUN 15 (7-21) mg/dL Creatinine 0.7 L (0.8-1.5) mg/dl Est GFR ( Amer) > 60 Est GFR (Non-Af Amer) > 60 POC Glucose (mg/dL) 82 (65-110) mg/dL Random Glucose 90 (70-110) mg/dL Calcium 8.3 L (8.4-10.5) mg/dL Ionized Calcium (4.80-5.60) mg/dL Phosphorus 3.3 (2.5-4.5) mg/dL Magnesium 1.8 (1.7-2.2) mg/dL Total Bilirubin (0.2-1.3) mg/dL AST (17-59) U/L ALT (7-56) U/L Alkaline Phosphatase (38-126) U/L Total Protein (5.8-8.3) g/dL Albumin (3.0-4.8) g/dL Globulin gm/dL Albumin/Globulin Ratio (1.1-1.8) Procalcitonin 5.90 H (0.19-0.49) NG/ML 07/09/18 07/09/18 07/09/18 Range/Units 21:10 21:10 17:54 WBC (4.5-11.0) 10^3/uL RBC (3.5-6.1) 10^6/uL Hgb (14.0-18.0) g/dL Hct (42.0-52.0) % MCV (80.0-105.0) fl MCH (25.0-35.0) pg MCHC (31.0-37.0) g/dl RDW (11.5-14.5) % Plt Count (120.0-450.0) 10^3/uL MPV (7.0-11.0) fl Neut % (Auto) (50.0-68.0) % Lymph % (Auto) (22.0-35.0) % Glynn % (Auto) (1.0-6.0) % Eos % (Auto) (1.5-5.0) % Baso % (Auto) (0.0-3.0) % Lymph # (Auto) (1.2-3.4) Glynn # (Auto) (0.1-0.6) Eos # (Auto) (0.0-0.7) Baso # (Auto) (0.0-2.0) K/mm3 Absolute Neuts (auto) (1.4-6.5) PT 12.7 H (9.4-12.5) SECONDS INR 1.14 APTT 43.7 H (26.9-38.3) Seconds pCO2 (35-45) mm/Hg pO2 (80-100) mm/Hg HCO3 (21-28) mmol/L ABG pH (7.35-7.45) ABG Total CO2 (22-28) mmol.L ABG O2 Saturation (95-98) % ABG O2 Content (15-23) ML/dl ABG Base Excess (-2.0-3.0) mmol/L ABG Hemoglobin (11.7-17.4) g/dL ABG Carboxyhemoglobin (0.5-1.5) % POC ABG HHb (Measured) (0-5) % ABG Methemoglobin (0.0-3.0) % ABG O2 Capacity (16-24) mL/dl Hgb O2 Saturation (95.0-98.0) % FiO2 % Sodium 139 (132-148) mmol/L Potassium 3.6 (3.6-5.0) mmol/L Chloride 101 (98-107) mmol/L Carbon Dioxide 31 (21-33) mmol/L Anion Gap 11 (10-20) BUN 16 (7-21) mg/dL Creatinine 0.8 (0.8-1.5) mg/dl Est GFR ( Amer) > 60 Est GFR (Non-Af Amer) > 60 POC Glucose (mg/dL) 114 H (65-110) mg/dL Random Glucose 84 (70-110) mg/dL Calcium 8.1 L (8.4-10.5) mg/dL Ionized Calcium (4.80-5.60) mg/dL Phosphorus 3.6 (2.5-4.5) mg/dL Magnesium 1.9 (1.7-2.2) mg/dL Total Bilirubin (0.2-1.3) mg/dL AST (17-59) U/L ALT (7-56) U/L Alkaline Phosphatase (38-126) U/L Total Protein (5.8-8.3) g/dL Albumin (3.0-4.8) g/dL Globulin gm/dL Albumin/Globulin Ratio (1.1-1.8) Procalcitonin (0.19-0.49) NG/ML 07/09/18 07/08/18 Range/Units 05:20 22:03 WBC (4.5-11.0) 10^3/uL RBC (3.5-6.1) 10^6/uL Hgb (14.0-18.0) g/dL Hct (42.0-52.0) % MCV (80.0-105.0) fl MCH (25.0-35.0) pg MCHC (31.0-37.0) g/dl RDW (11.5-14.5) % Plt Count (120.0-450.0) 10^3/uL MPV (7.0-11.0) fl Neut % (Auto) (50.0-68.0) % Lymph % (Auto) (22.0-35.0) % Glynn % (Auto) (1.0-6.0) % Eos % (Auto) (1.5-5.0) % Baso % (Auto) (0.0-3.0) % Lymph # (Auto) (1.2-3.4) Glynn # (Auto) (0.1-0.6) Eos # (Auto) (0.0-0.7) Baso # (Auto) (0.0-2.0) K/mm3 Absolute Neuts (auto) (1.4-6.5) PT (9.4-12.5) SECONDS INR APTT (26.9-38.3) Seconds pCO2 (35-45) mm/Hg pO2 (80-100) mm/Hg HCO3 (21-28) mmol/L ABG pH (7.35-7.45) ABG Total CO2 (22-28) mmol.L ABG O2 Saturation (95-98) % ABG O2 Content (15-23) ML/dl ABG Base Excess (-2.0-3.0) mmol/L ABG Hemoglobin (11.7-17.4) g/dL ABG Carboxyhemoglobin (0.5-1.5) % POC ABG HHb (Measured) (0-5) % ABG Methemoglobin (0.0-3.0) % ABG O2 Capacity (16-24) mL/dl Hgb O2 Saturation (95.0-98.0) % FiO2 % Sodium (132-148) mmol/L Potassium (3.6-5.0) mmol/L Chloride (98-107) mmol/L Carbon Dioxide (21-33) mmol/L Anion Gap (10-20) BUN (7-21) mg/dL Creatinine (0.8-1.5) mg/dl Est GFR ( Amer) Est GFR (Non-Af Amer) POC Glucose (mg/dL) (65-110) mg/dL Random Glucose (70-110) mg/dL Calcium (8.4-10.5) mg/dL Ionized Calcium 4.4 L 4.1 L (4.80-5.60) mg/dL Phosphorus (2.5-4.5) mg/dL Magnesium (1.7-2.2) mg/dL Total Bilirubin (0.2-1.3) mg/dL AST (17-59) U/L ALT (7-56) U/L Alkaline Phosphatase (38-126) U/L Total Protein (5.8-8.3) g/dL Albumin (3.0-4.8) g/dL Globulin gm/dL Albumin/Globulin Ratio (1.1-1.8) Procalcitonin (0.19-0.49) NG/ML Laboratory Results - last 24 hr 07/08/18 07/09/18 07/09/18 22:03 05:20 17:54 WBC RBC Hgb Hct MCV MCH MCHC RDW Plt Count MPV Neut % (Auto) Lymph % (Auto) Glynn % (Auto) Eos % (Auto) Baso % (Auto) Lymph # (Auto) Glynn # (Auto) Eos # (Auto) Baso # (Auto) Absolute Neuts (auto) PT INR APTT pCO2 pO2 HCO3 ABG pH ABG Total CO2 ABG O2 Saturation ABG O2 Content ABG Base Excess ABG Hemoglobin ABG Carboxyhemoglobin POC ABG HHb (Measured) ABG Methemoglobin ABG O2 Capacity Hgb O2 Saturation FiO2 Sodium Potassium Chloride Carbon Dioxide Anion Gap BUN Creatinine Est GFR ( Amer) Est GFR (Non-Af Amer) POC Glucose (mg/dL) 114 H Random Glucose Calcium Ionized Calcium 4.1 L 4.4 L Phosphorus Magnesium Total Bilirubin AST ALT Alkaline Phosphatase Total Protein Albumin Globulin Albumin/Globulin Ratio Procalcitonin 07/09/18 07/09/18 07/10/18 21:10 21:10 00:14 WBC RBC Hgb Hct MCV MCH MCHC RDW Plt Count MPV Neut % (Auto) Lymph % (Auto) Glynn % (Auto) Eos % (Auto) Baso % (Auto) Lymph # (Auto) Glynn # (Auto) Eos # (Auto) Baso # (Auto) Absolute Neuts (auto) PT 12.7 H INR 1.14 APTT 43.7 H pCO2 pO2 HCO3 ABG pH ABG Total CO2 ABG O2 Saturation ABG O2 Content ABG Base Excess ABG Hemoglobin ABG Carboxyhemoglobin POC ABG HHb (Measured) ABG Methemoglobin ABG O2 Capacity Hgb O2 Saturation FiO2 Sodium 139 Potassium 3.6 Chloride 101 Carbon Dioxide 31 Anion Gap 11 BUN 16 Creatinine 0.8 Est GFR ( Amer) > 60 Est GFR (Non-Af Amer) > 60 POC Glucose (mg/dL) 82 Random Glucose 84 Calcium 8.1 L Ionized Calcium Phosphorus 3.6 Magnesium 1.9 Total Bilirubin AST ALT Alkaline Phosphatase Total Protein Albumin Globulin Albumin/Globulin Ratio Procalcitonin 07/10/18 07/10/18 07/10/18 01:08 04:30 04:30 WBC 23.5 H RBC 4.33 Hgb 13.6 L Hct 40.0 L MCV 92.4 MCH 31.4 MCHC 34.0 RDW 12.4 Plt Count 166 MPV 9.8 Neut % (Auto) 89.9 H Lymph % (Auto) 5.4 L Glynn % (Auto) 4.7 Eos % (Auto) 0.0 L Baso % (Auto) 0.0 Lymph # (Auto) 1.3 Glynn # (Auto) 1.1 H Eos # (Auto) 0.0 Baso # (Auto) 0.00 Absolute Neuts (auto) 21.12 H PT INR APTT pCO2 pO2 HCO3 ABG pH ABG Total CO2 ABG O2 Saturation ABG O2 Content ABG Base Excess ABG Hemoglobin ABG Carboxyhemoglobin POC ABG HHb (Measured) ABG Methemoglobin ABG O2 Capacity Hgb O2 Saturation FiO2 Sodium 139 Potassium 4.0 Chloride 102 Carbon Dioxide 30 Anion Gap 10 BUN 15 Creatinine 0.7 L Est GFR ( Amer) > 60 Est GFR (Non-Af Amer) > 60 POC Glucose (mg/dL) Random Glucose 90 Calcium 8.3 L Ionized Calcium Phosphorus 3.3 Magnesium 1.8 Total Bilirubin AST ALT Alkaline Phosphatase Total Protein Albumin Globulin Albumin/Globulin Ratio Procalcitonin 5.90 H 07/10/18 07/10/18 07/10/18 04:30 04:30 05:30 WBC RBC Hgb Hct MCV MCH MCHC RDW Plt Count MPV Neut % (Auto) Lymph % (Auto) Glynn % (Auto) Eos % (Auto) Baso % (Auto) Lymph # (Auto) Glynn # (Auto) Eos # (Auto) Baso # (Auto) Absolute Neuts (auto) PT INR APTT 101.3 H* pCO2 37 pO2 201.0 H HCO3 29.5 H ABG pH 7.51 H ABG Total CO2 30.6 H ABG O2 Saturation 99.8 H ABG O2 Content 18.5 ABG Base Excess 6.2 H ABG Hemoglobin 13.2 ABG Carboxyhemoglobin 1.6 H POC ABG HHb (Measured) 0.2 ABG Methemoglobin 1.0 ABG O2 Capacity 18.5 Hgb O2 Saturation 97.2 FiO2 50.0 Sodium 139 Potassium 4.2 Chloride 104 Carbon Dioxide 29 Anion Gap 11 BUN 16 Creatinine 0.8 Est GFR ( Amer) > 60 Est GFR (Non-Af Amer) > 60 POC Glucose (mg/dL) Random Glucose 95 Calcium 8.4 Ionized Calcium Phosphorus 3.2 Magnesium 1.7 Total Bilirubin 0.8 AST 263 H ALT 138 H Alkaline Phosphatase 84 Total Protein 6.5 Albumin 3.6 Globulin 2.9 Albumin/Globulin Ratio 1.3 Procalcitonin 07/10/18 07/10/18 06:07 13:30 WBC RBC Hgb Hct MCV MCH MCHC RDW Plt Count MPV Neut % (Auto) Lymph % (Auto) Glynn % (Auto) Eos % (Auto) Baso % (Auto) Lymph # (Auto) Glynn # (Auto) Eos # (Auto) Baso # (Auto) Absolute Neuts (auto) PT INR APTT 33.6 pCO2 pO2 HCO3 ABG pH ABG Total CO2 ABG O2 Saturation ABG O2 Content ABG Base Excess ABG Hemoglobin ABG Carboxyhemoglobin POC ABG HHb (Measured) ABG Methemoglobin ABG O2 Capacity Hgb O2 Saturation FiO2 Sodium Potassium Chloride Carbon Dioxide Anion Gap BUN Creatinine Est GFR ( Amer) Est GFR (Non-Af Amer) POC Glucose (mg/dL) 95 Random Glucose Calcium Ionized Calcium Phosphorus Magnesium Total Bilirubin AST ALT Alkaline Phosphatase Total Protein Albumin Globulin Albumin/Globulin Ratio Procalcitonin Radiology Impressions: Radiology Impressions Chest X-Ray 07/10/18 07:24 IMPRESSION: There is resolution of the atelectasis in the right upper lobe. The lungs are now clear Head CT 07/10/18 14:04 IMPRESSION: No acute intracranial abnormalities. No significant findings to account for the clinical presentation. No significant interval change compared to the prior examination(s). Critical Care Progress Note - Nutrition Nutrition: Nutrition Category Date Time Status NPO Diet [DIET] Diets 07/08/18 Dinner Ordered Addendum Addendum: 07/10/18 18:12 MICU Attending Addendum Patient seen and examined with housestaff case discussed on round agree with resident note above with the following additions/exceptions: 48 yo M with unknown PMH who presented via EMS s/p VFIB cardiac arrest and s/p ROSC. s/p targetted temp now re-warmed off nimber cont to follow lytes improved mental status, gets agitated and moving all extremities hold off on neuroprognostication until at least 72 hours cont amio f/u cardio recs start ASA for NC on heparin drip low Vt ventilation broad spcedtrum abx as per ID plan to wean sedation and possibloe extubation within 24-48 hours Rest of care as mentioned in above resident note Susana Boone MD Pulmonary Critical Care Sleep Medicine
[2018-07-10] MEDS ORDERED: Magnesium Sulfate 1 gm in D5W 1 GM/100 ML BAG IVPB ONE (09:36)
--- NOTE | 2018-07-10 09:40 | CP.PCM.PN ---
<Lizbeth Baldwin - Last Filed: 07/10/18 15:41> Subjective - Date & Time of Evaluation Date of Evaluation: 07/10/18 Time of Evaluation: 07:30 - Subjective Subjective: Lizbeth Baldwin DO, PGY-2: Neurology Progress Note for Dr. Hackett Patient was seen and examined at bedside. Sedation was taken off during this encounter. Patient was able to open eyes when tapping his legs. Patient was unable to follow commands, but nursing staff report he was moving arms and legs sporadically. Patient is breathing over the vent, yawns. Other professional housing consultant notes were reviewed. Objective - Vital Signs/Intake and Output Vital Signs (last 24 hours): Temp Pulse Resp BP Pulse Ox 99.1 F 90 33 H 140/109 H 97 07/10/18 08:00 07/10/18 08:00 07/10/18 07:39 07/10/18 08:00 07/10/18 08:00 Intake and Output: 07/10/18 07/10/18 06:59 18:59 Intake Total 592 0 Output Total 450 Balance 142 0 - Medications Medications: Current Medications Amiodarone HCl (Cordarone) 400 mg PO BID [facility] Artificial Tears (Puralube Opht Oint) 1 appl OU Q4H PRN PRN Reason: Dry eyes Artificial Tears (Refresh Opth Soln) 0.3 ml OU Q4H PRN PRN Reason: Dry eyes Last Admin: 07/09/18 10:37 Dose: 2 d Aspirin (Aspirin Supp) 300 mg RC DAILY [facility] Famotidine (Pepcid) 20 mg IVP DAILY [facility] Last Admin: 07/09/18 09:43 Dose: 20 mg Fentanyl Citrate (Fentanyl Citrate/Sodium Chloride 1 Mg/100 Ml) 1,000 mcg in 100 mls @ 2 mls/hr IV .Q24H PRN; Protocol PRN Reason: TITRATE PER MD ORDER Last Titration: 07/10/18 02:25 Dose: Infused Propofol (Diprivan) 1,000 mg in 100 mls @ 2.245 mls/hr IV .Q24H PRN; Protocol PRN Reason: TITRATE PER MD ORDER Last Titration: 07/10/18 07:45 Dose: 20 mcg/kg/min, 8.981 mls/hr Heparin Sodium/Sodium Chloride (Heparin 22251 Units/250ml 1/2 Normal Saline) 25,000 units in 250 mls @ 8.981 mls/hr IV .Q24H [facility]; Protocol Last Admin: 07/10/18 05:34 Dose: 8 units/kg/hr, 5.987 mls/hr Amiodarone HCl/Dextrose (Nexterone 360 Mg In D5w 200 Ml (Premix)) 360 mg in 200 mls @ 16.667 mls/hr IV .Q12H [facility]; Protocol Last Admin: 07/10/18 06:55 Dose: 16.667 mls/hr Cisatracurium Besylate 200 mg/ (Sodium Chloride) 200 mls @ 2.3 mls/hr IV .Q24H PRN; Protocol PRN Reason: TITRATE PER MD ORDER Last Titration: 07/09/18 17:50 Dose: 0 mcg/kg/min, 0 mls/hr Vancomycin HCl (Vancomycin 1gm) 1 gm in 250 mls @ 167 mls/hr IVPB Q12H [facility]; Protocol Last Admin: 07/09/18 22:10 Dose: 167 mls/hr Doxycycline Hyclate 100 mg/ (Sodium Chloride) 100 mls @ 100 mls/hr IVPB Q12 [facility]; Protocol Last Admin: 07/09/18 22:15 Dose: 100 mls/hr Piperacillin Sod/Tazobactam Sod (Zosyn 3.375 In Ns 100ml) 100 mls @ 200 mls/hr IVPB Q6 [facility]; Protocol Stop: 07/17/18 00:01 Last Admin: 07/10/18 05:38 Dose: 200 mls/hr - Labs Labs: 07/10/18 04:30 07/10/18 04:30 PT 12.7 SECONDS (9.4-12.5) H 07/09/18 21:10 INR 1.14 07/09/18 21:10 APTT 101.3 Seconds (26.9-38.3) H* 07/10/18 04:30 - Constitutional Appears: Non-toxic, No Acute Distress - Head Exam Head Exam: ATRAUMATIC, NORMOCEPHALIC - Eye Exam Additional comments: patient can open eyelids, but I have not seen him track past midline - ENT Exam ENT Exam: Mucous Membranes Moist - Respiratory Exam Respiratory Exam: Rales, NORMAL BREATHING PATTERN. absent: Accessory Muscle Use - Cardiovascular Exam Cardiovascular Exam: RRR, +S1, +S2 - GI/Abdominal Exam GI & Abdominal Exam: Soft, Normal Bowel Sounds - Extremities Exam Extremities Exam: Normal Inspection - Neurological Exam Neurological Exam: Awake Assessment and Plan - Assessment and Plan (Free Text) Assessment: 48 year old black male with an unknown medical history who sustained a witnessed cardiac arrest in the field with the original rhythm being ventricular fibrillation. CPR was conducted for 25 minutes with the utilization of epineph rine, narcan, amiodarone, and defibrillation. ROSC was obtained. Patient is now currently receiving therapeutic hypothermia for 24 hours. 1) Cardiac Arrest with ROSC obtained - s/p therapeutic hypothermia - CT head shows no ICH - Seizure precautions - Video EEG and repeat CT scan of head Case was reviewed and discussed with attending physician, Dr. Hackett <Hai Hackett - Last Filed: 07/14/18 11:53> Objective - Vital Signs/Intake and Output Vital Signs (last 24 hours): Temp Pulse Resp BP Pulse Ox 98.3 F 52 L 20 141/84 98 07/14/18 11:00 07/14/18 11:00 07/14/18 07:57 07/14/18 11:00 07/14/18 11:00 - Medications Medications: Current Medications Amiodarone HCl (Cordarone) 200 mg PO DAILY [facility] Last Admin: 07/14/18 09:50 Dose: 200 mg Artificial Tears (Puralube Opht Oint) 1 appl OU Q4H PRN PRN Reason: Dry eyes Artificial Tears (Refresh Opth Soln) 0.3 ml OU Q4H PRN PRN Reason: Dry eyes Last Admin: 07/09/18 10:37 Dose: 2 d Aspirin (Aspirin Chewable) 81 mg PO DAILY [facility] Last Admin: 07/14/18 09:50 Dose: 81 mg Enoxaparin Sodium (Lovenox) 40 mg SC DAILY [facility]; Protocol Last Admin: 07/14/18 09:51 Dose: 40 mg Famotidine (Pepcid) 20 mg IVP DAILY [facility] Last Admin: 07/14/18 09:50 Dose: 20 mg Doxycycline Hyclate 100 mg/ (Sodium Chloride) 100 mls @ 100 mls/hr IVPB Q12 [facility]; Protocol Last Admin: 07/14/18 09:51 Dose: 100 mls/hr Piperacillin Sod/Tazobactam Sod (Zosyn 3.375 In Ns 100ml) 100 mls @ 200 mls/hr IVPB Q6 [facility]; Protocol Stop: 07/17/18 00:01 Last Admin: 07/14/18 05:17 Dose: 200 mls/hr - Labs Labs: 07/14/18 05:30 07/14/18 05:30 PT 12.7 SECONDS (9.4-12.5) H 07/09/18 21:10 INR 1.14 07/09/18 21:10 APTT 50.0 Seconds (26.9-38.3) H 07/12/18 04:00 Attending/Attestation - Attestation I have personally seen and examined this patient.: Yes I have fully participated in the care of the patient.: Yes I have reviewed all pertinent clinical information, including history, physical exam and plan: Yes Notes (Text): I agree with the assessment and plan. Will continue supportive care per ICU team and manage neurological symptoms.
[2018-07-10] MEDS: Vancomycin 1gm in NS 250ml 1 GM/250 ML BAG IVPB SCH ×2 (10:55→22:05)
--- NOTE | 2018-07-10 12:11 | PN ---
DATE: 07/10/2018 SUBJECTIVE: The patient remains on a ventilator. PHYSICAL EXAMINATION: VITAL SIGNS: Blood pressure 140/100, heart rate is in the 90s. NECK: Negative JVD. LUNGS: No rales noted. HEART: S1, S2. EXTREMITIES: Without edema. NEUROLOGIC: The patient is agitated off sedation. Currently, the patient is sedated. LABORATORY DATA: Hemoglobin is 13. BUN and creatinine unremarkable. LFTs remain elevated. IMPRESSION: 1. Status post ventricular fibrillation arrest. 2. 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 3. Severe cardiomyopathy. 4. Non-ST elevation myocardial infarction. 5. Respiratory failure. PLAN: Given these findings, we will change the patient from his IV amiodarone to p.o. amiodarone via the NG. We will continue to monitor the magnesium level. Kelby Guerrero MD
--- NOTE | 2018-07-10 12:31 | RAD ---
Date of service: 07/10/2018 HISTORY: intubated COMPARISON: 07/09/2018 TECHNIQUE: 1 view obtained. FINDINGS: LUNGS: There is resolution of the atelectasis in the right upper lobe. The lungs are now clear PLEURA: No significant pleural effusion identified, no pneumothorax apparent. CARDIOVASCULAR: No aortic atherosclerotic calcification present. Normal cardiac size. No pulmonary vascular congestion. OSSEOUS STRUCTURES: No significant abnormalities. VISUALIZED UPPER ABDOMEN: Normal. OTHER FINDINGS: Endotracheal and nasogastric tubes in satisfactory position IMPRESSION: There is resolution of the atelectasis in the right upper lobe. The lungs are now clear
--- NOTE | 2018-07-10 12:37 | CP.PCM.PN ---
<Lorena Dykes - Last Filed: 07/10/18 12:32> Subjective - Date & Time of Evaluation Date of Evaluation: 07/10/18 Time of Evaluation: 09:30 - Subjective Subjective: Lorena Dykes PGY1 Medicine Progress Note: Pt was seen and examined this AM at bedside. Pt is intubated and sedated at this time and is unable to participate in ROS. Yesterday in the ICU the pt was taken off of code freeze at 1730 due to finishing the cooling regimen. Pt will continue to be monitored in ICU setting at this time. Objective - Vital Signs/Intake and Output Vital Signs (last 24 hours): Temp Pulse Resp BP Pulse Ox 99.5 F 82 33 H 139/83 98 07/10/18 12:20 07/10/18 12:20 07/10/18 07:39 07/10/18 12:00 07/10/18 12:20 Intake and Output: 07/10/18 07/10/18 06:59 18:59 Intake Total 592 0 Output Total 450 Balance 142 0 - Medications Medications: Current Medications Amiodarone HCl (Cordarone) 400 mg PO BID [facility] Last Admin: 07/10/18 09:36 Dose: 400 mg Artificial Tears (Puralube Opht Oint) 1 appl OU Q4H PRN PRN Reason: Dry eyes Artificial Tears (Refresh Opth Soln) 0.3 ml OU Q4H PRN PRN Reason: Dry eyes Last Admin: 07/09/18 10:37 Dose: 2 d Aspirin (Aspirin Supp) 300 mg RC DAILY [facility] Last Admin: 07/10/18 09:36 Dose: 300 mg Famotidine (Pepcid) 20 mg IVP DAILY [facility] Last Admin: 07/10/18 09:36 Dose: 20 mg Fentanyl Citrate (Fentanyl Citrate/Sodium Chloride 1 Mg/100 Ml) 1,000 mcg in 100 mls @ 2 mls/hr IV .Q24H PRN; Protocol PRN Reason: TITRATE PER MD ORDER Last Titration: 07/10/18 02:25 Dose: Infused Propofol (Diprivan) 1,000 mg in 100 mls @ 2.245 mls/hr IV .Q24H PRN; Protocol PRN Reason: TITRATE PER MD ORDER Last Titration: 07/10/18 07:45 Dose: 20 mcg/kg/min, 8.981 mls/hr Heparin Sodium/Sodium Chloride (Heparin 31821 Units/250ml 1/2 Normal Saline) 25,000 units in 250 mls @ 8.981 mls/hr IV .Q24H [facility]; Protocol Last Admin: 07/10/18 05:34 Dose: 8 units/kg/hr, 5.987 mls/hr Amiodarone HCl/Dextrose (Nexterone 360 Mg In D5w 200 Ml (Premix)) 360 mg in 200 mls @ 16.667 mls/hr IV .Q12H [facility]; Protocol Last Admin: 07/10/18 06:55 Dose: 16.667 mls/hr Vancomycin HCl (Vancomycin 1gm) 1 gm in 250 mls @ 167 mls/hr IVPB Q12H [facility]; Protocol Last Admin: 07/10/18 10:55 Dose: 167 mls/hr Doxycycline Hyclate 100 mg/ (Sodium Chloride) 100 mls @ 100 mls/hr IVPB Q12 [facility]; Protocol Last Admin: 07/10/18 09:36 Dose: 100 mls/hr Piperacillin Sod/Tazobactam Sod (Zosyn 3.375 In Ns 100ml) 100 mls @ 200 mls/hr IVPB Q6 [facility]; Protocol Stop: 07/17/18 00:01 Last Admin: 07/10/18 05:38 Dose: 200 mls/hr - Labs Labs: 07/10/18 04:30 07/10/18 04:30 PT 12.7 SECONDS (9.4-12.5) H 07/09/18 21:10 INR 1.14 07/09/18 21:10 APTT 101.3 Seconds (26.9-38.3) H* 07/10/18 04:30 - Constitutional Appears: Intubated, Sedated - Head Exam Head Exam: ATRAUMATIC, NORMAL INSPECTION, NORMOCEPHALIC - Eye Exam Pupil Exam: Miosis, Additional Comments: pupils pinpoint reactive but sluggish - ENT Exam ENT Exam: Mucous Membranes Dry - Respiratory Exam Additional comments: intubated, on vent - Cardiovascular Exam Cardiovascular Exam: REGULAR RHYTHM, +S1, +S2 - GI/Abdominal Exam GI & Abdominal Exam: Soft - Extremities Exam Extremities exam: Negative for: pedal edema - Neurological Exam Neurological exam: Altered - Skin Skin Exam: Normal Color, Warm Assessment & Plan - Assessment and Plan (Free Text) Assessment: 48 year old male presented to the emergency department, with unknown past medical history brought in by ambulance after a witnessed cardiac arrest with ventricular fibrillation. s/p CPR for 25 minutes, 3x epinephrines, 2 narcans, 5 shocks and 3x Amiodarone in the field. Pt achieved ROSC and is on code freeze protocol. Plan: Cardiac Arrest s/p ROSC - Pt had vfib in field, 5x shock s/p ROSC - Pt had code freeze completed at 5:30 pm yesterday - Will await 72hrs from cardiac arrest to eval neuro status - EKG shows NSR @ 68. L axis deviation - Initial trop .06, 9.05, 7.6 - Urine tox positive for opioids and cannibinoids - Cardio consulted, Dr. Guerrero, no plan for intervention at this time - Cont Heparin drip - Cont amiodarone drip - Cont propofol drip - Cont fentanyl drip - Hemoglobin A1C - 5.0 - lipid panel - Chol 184, LDL - 84, HDL - 85 - TSH/T4 - TSH = 6.37, T4 = wnl - Echo LVEF - 13% - Monitored in the ICU CXR/CT chest with bilateral pulmonary edema, possible infiltrates - likely secondary from aspiration - Cont cefepime and vanc in ICU - lasix dose given in ED - continue to monitor - repeat chest xray in AM - improving pulm edema, as read by me AMS secondary to cardiac arrest - Possible anoxic injury - Pt completed code freeze, will await 72hrs from onset of cardiac arrest to assess neuro function. - CT head negative for acute pathology - Currently sedated - Propofol, fentanyl drip - Neurology, consulted, Dr. Hackett follow recs - Seizure precautions - Neuro checks PPx: GI: Protonix 40 IVP DVT: Pt is code freeze Case seen and discussed with Dr. Radha Dykes, PGY1 <Brayden Garcia - Last Filed: 07/10/18 17:01> Objective - Vital Signs/Intake and Output Vital Signs (last 24 hours): Temp Pulse Resp BP Pulse Ox 99.5 F 82 33 H 139/83 98 07/10/18 12:20 07/10/18 12:20 07/10/18 07:39 07/10/18 12:00 07/10/18 12:20 Intake and Output: 07/10/18 07/10/18 06:59 18:59 Intake Total 592 200 Output Total 450 Balance 142 200 - Medications Medications: Current Medications Amiodarone HCl (Cordarone) 400 mg PO BID [facility] Last Admin: 07/10/18 09:36 Dose: 400 mg Artificial Tears (Puralube Opht Oint) 1 appl OU Q4H PRN PRN Reason: Dry eyes Artificial Tears (Refresh Opth Soln) 0.3 ml OU Q4H PRN PRN Reason: Dry eyes Last Admin: 07/09/18 10:37 Dose: 2 d Aspirin (Aspirin Supp) 300 mg RC DAILY [facility] Last Admin: 07/10/18 09:36 Dose: 300 mg Famotidine (Pepcid) 20 mg IVP DAILY [facility] Last Admin: 07/10/18 09:36 Dose: 20 mg Fentanyl Citrate (Fentanyl Citrate/Sodium Chloride 1 Mg/100 Ml) 1,000 mcg in 100 mls @ 2 mls/hr IV .Q24H PRN; Protocol PRN Reason: TITRATE PER MD ORDER Last Titration: 07/10/18 02:25 Dose: Infused Propofol (Diprivan) 1,000 mg in 100 mls @ 2.245 mls/hr IV .Q24H PRN; Protocol PRN Reason: TITRATE PER MD ORDER Last Titration: 07/10/18 07:45 Dose: 20 mcg/kg/min, 8.981 mls/hr Heparin Sodium/Sodium Chloride (Heparin 94350 Units/250ml 1/2 Normal Saline) 25,000 units in 250 mls @ 8.981 mls/hr IV .Q24H [facility]; Protocol Last Titration: 07/10/18 15:48 Dose: 12 units/kg/hr, 8.981 mls/hr Vancomycin HCl (Vancomycin 1gm) 1 gm in 250 mls @ 167 mls/hr IVPB Q12H [facility]; Protocol Last Admin: 07/10/18 10:55 Dose: 167 mls/hr Doxycycline Hyclate 100 mg/ (Sodium Chloride) 100 mls @ 100 mls/hr IVPB Q12 [facility]; Protocol Last Admin: 07/10/18 09:36 Dose: 100 mls/hr Piperacillin Sod/Tazobactam Sod (Zosyn 3.375 In Ns 100ml) 100 mls @ 200 mls/hr IVPB Q6 [facility]; Protocol Stop: 07/17/18 00:01 Last Admin: 07/10/18 14:40 Dose: 200 mls/hr - Labs Labs: 07/10/18 04:30 07/10/18 04:30 PT 12.7 SECONDS (9.4-12.5) H 07/09/18 21:10 INR 1.14 07/09/18 21:10 APTT 33.6 Seconds (26.9-38.3) 07/10/18 13:30 Attending/Attestation - Attestation I have personally seen and examined this patient.: Yes I have fully participated in the care of the patient.: Yes I have reviewed all pertinent clinical information, including history, physical exam and plan: Yes Notes (Text): 07/10/18 16:46 Attending note; Patient seen and examined with resident in ICU. Patient is currently intubated and sedated. Trial weaning off sedation today. Currently on propofol. Patient is a 48 year old male presented to the emergency department, with unknown past medical history brought in by ambulance after a witnessed cardiac arrest with ventricular fibrillation. 1. Status Post cardiac arrest; currently intubated and sedated. Status post hypothermia protocol. Patient had episodes of V. fib and cardioverted in the field.Got epinephrine, narcan, amiodarone, and defibrillation in the field. Approximate down time is 25 minutes. on amiodarone drip. Case discussed with mica sizer in detail. Started on IV heparin drip. head CT is negative for acute findings. CT cervical spine is negative for acute fracture. CT abdomen and pelvis showed bilateral infiltrates suggesting aspiration pneumonitis and pleural effusion. Mildly distended colon noted. 2. VF/ Arrhythmia; Continue amiodarone drip and heparin drip. Patient has unusual P axis or junctional rhythm and EKG. Follow Up with cardiology closely. 3. Severe cardiomyopathy.EchoCardiogram showed ejection fraction of 13%. 4. Elevated troponin; non-ST elevation CO versus post CPR. Trending down. Continue aspirin and heparin drip. 5. Cardiac arrest ;neurology evaluation appreciated. Repeat CT is negative. Video EEG ordered. 3. Status post intubation; weaning parameters as per ICU. 4. Urine drug screen is positive for opiates and cannabis. 5. leukocytosis; mostly secondary to aspiration pneumonia. Blood and urine cultures negative so far. ID evaluation appreciated. Currently on vancomycin, Zosyn and doxycycline. 6. DVT/GI prophylaxis. Monitor patient closely in ICU. 07/10/18 17:00
--- NOTE | 2018-07-10 15:59 | CT ---
Date of service: 07/10/2018 PROCEDURE: CT HEAD WITHOUT CONTRAST. HISTORY: re-evaluate COMPARISON: 07/08/2018. TECHNIQUE: Axial computed tomography images were obtained through the head/brain without intravenous contrast. Supplemental Coronal and Sagittal projections created and reviewed. Radiation dose: Total exam DLP = <inf_radiation_dlp> mGy-cm. This CT exam was performed using one or more of the following dose reduction techniques: Automated exposure control, adjustment of the mA and/or kV according to patient size, and/or use of iterative reconstruction technique. FINDINGS: HEMORRHAGE: No intracranial hemorrhage. BRAIN: No mass effect or edema. No atrophy or chronic microvascular ischemic changes. No evidence of anoxic encephalopathy or other significant process. VENTRICLES: Unremarkable. No hydrocephalus. CALVARIUM: Unremarkable. PARANASAL SINUSES: Unremarkable as visualized. No significant inflammatory changes. MASTOID AIR CELLS: Unremarkable as visualized. No inflammatory changes. OTHER FINDINGS: None. IMPRESSION: No acute intracranial abnormalities. No significant findings to account for the clinical presentation. No significant interval change compared to the prior examination(s).
--- NOTE | 2018-07-10 23:21 | CP.PCM.PN ---
Subjective - Date & Time of Evaluation Date of Evaluation: 07/10/18 Time of Evaluation: 06:30 - Subjective Subjective: Patient is still on the ventilator, no fevers., sedated but arousable. Objective - Vital Signs/Intake and Output Vital Signs (last 24 hours): Temp Pulse Resp BP Pulse Ox 97.3 F L 74 20 124/92 H 100 07/09/18 20:10 07/09/18 20:10 07/08/18 18:10 07/09/18 20:00 07/09/18 20:10 Intake and Output: 07/09/18 07/10/18 18:59 06:59 Intake Total 998 Output Total 1200 Balance -202 - Medications Medications: Current Medications Artificial Tears (Puralube Opht Oint) 1 appl OU Q4H PRN PRN Reason: Dry eyes Artificial Tears (Refresh Opth Soln) 0.3 ml OU Q4H PRN PRN Reason: Dry eyes Last Admin: 07/09/18 10:37 Dose: 2 d Aspirin (Aspirin Supp) 300 mg RC DAILY [facility] Famotidine (Pepcid) 20 mg IVP DAILY [facility] Last Admin: 07/09/18 09:43 Dose: 20 mg Fentanyl Citrate (Fentanyl Citrate/Sodium Chloride 1 Mg/100 Ml) 1,000 mcg in 100 mls @ 2 mls/hr IV .Q24H PRN; Protocol PRN Reason: TITRATE PER MD ORDER Last Titration: 07/09/18 17:30 Dose: 20 mcg/hr, 2 mls/hr Propofol (Diprivan) 1,000 mg in 100 mls @ 2.245 mls/hr IV .Q24H PRN; Protocol PRN Reason: TITRATE PER MD ORDER Last Titration: 07/09/18 17:31 Dose: 5 mcg/kg/min, 2.245 mls/hr Heparin Sodium/Sodium Chloride (Heparin 59136 Units/250ml 1/2 Normal Saline) 25,000 units in 250 mls @ 8.981 mls/hr IV .Q24H [facility]; Protocol Last Titration: 07/08/18 23:25 Dose: 9 units/kg/hr, 6.736 mls/hr Amiodarone HCl/Dextrose (Nexterone 360 Mg In D5w 200 Ml (Premix)) 360 mg in 200 mls @ 16.667 mls/hr IV .Q12H [facility]; Protocol Last Admin: 07/09/18 17:56 Dose: 16.667 mls/hr Cisatracurium Besylate 200 mg/ (Sodium Chloride) 200 mls @ 2.3 mls/hr IV .Q24H PRN; Protocol PRN Reason: TITRATE PER MD ORDER Last Titration: 07/09/18 17:50 Dose: 0 mcg/kg/min, 0 mls/hr Vancomycin HCl (Vancomycin 1gm) 1 gm in 250 mls @ 167 mls/hr IVPB Q12H [facility]; Protocol Last Admin: 07/09/18 14:40 Dose: 167 mls/hr Doxycycline Hyclate 100 mg/ (Sodium Chloride) 100 mls @ 100 mls/hr IVPB Q12 [facility]; Protocol Piperacillin Sod/Tazobactam Sod (Zosyn 3.375 In Ns 100ml) 100 mls @ 200 mls/hr IVPB Q6 [facility]; Protocol Stop: 07/17/18 00:01 - Labs Labs: 07/09/18 10:15 07/09/18 21:10 PT 12.7 SECONDS (9.4-12.5) H 07/09/18 21:10 INR 1.14 07/09/18 21:10 APTT 43.7 Seconds (26.9-38.3) H 07/09/18 21:10 - Constitutional Appears: Other (intubated, sedated) - Head Exam Head Exam: NORMAL INSPECTION - ENT Exam Additional comments: ET tube in place - Respiratory Exam Respiratory Exam: Decreased Breath Sounds - Cardiovascular Exam Cardiovascular Exam: +S1, +S2 - GI/Abdominal Exam GI & Abdominal Exam: Soft. absent: Tenderness Assessment and Plan - Assessment and Plan (Free Text) Plan: Assessment Systemic inflammatory response syndrome after cardiac arrest probably from cardiac arrhythmia, consider severe sepsis with VDRF due to aspiration pneumonia Plan will d/c Vancomycin since MRSA screen is negative, continue Zosyn and Doxycycline day 2 pending final blood, sputum cx; urine Legionella Ag is negative reviewed CT chest and CXR prognosis is guarded at best
[2018-07-11] MEDS: Piperacillin/Tazobact 3.375 gm 100 ML IVPB SCH ×4 (00:05→17:07)
[2018-07-11] MEDS ORDERED: Etomidate 20 mg/10ml Inj IV ONE (03:02)
--- NOTE | 2018-07-11 03:57 | PCM.PROC ---
Procedures Attestation:: I certify that I have explained the specified Operation(s) or Procedure(s), risks, benefits and reasonable alternatives to the Patient and/or other person responsible. The opportunity was given to ask questions and all questions answered - Intubation Time Out Performed: Yes Sedative: Etomidate Assist Device Used: Bougie ET Tube Size: 7.5 ET Tube Secured [place]ar[place]: Teeth ET Tube Placement Confirmation: Confirmation w/Capnometry Patient Tolerated Procedure: Well Procedure Immediate Complications: None Additional comments: Exchanged leaking ET over Bougie. No complications.
[2018-07-11 04:50] LABS: HEMOGLOBIN 13.4 g/dL (14.0-18.0); RBC 4.24 10^6/uL (3.5-6.1); WHITE BLOOD COUNT 15.9 10^3/uL (4.5-11.0)
[2018-07-11 04:51] LABS: MEAN CELL VOLUME 95.5 fl (80.0-105.0); MEAN CORPUSCULAR HEMOGLOBIN 31.6 pg (25.0-35.0); MEAN CORPUSCULAR HGB CONC 33.1 g/dl (31.0-37.0); MEAN PLATELET VOLUME 10.6 fl (7.0-11.0)
[2018-07-11 05:03] LABS: BASO # 0.01 K/mm3 (0.0-2.0); BASO % 0.1 % (0.0-3.0); LYMPH # 1.6 (1.2-3.4); LYMPH % 9.5 % (22.0-35.0); MONO # 1.4 (0.1-0.6); MONO % 8.3 % (1.0-6.0)
[2018-07-11 05:12] LABS: ARTERIAL BLOOD GAS HCO3 27.7 mmol/L (21-28); ARTERIAL BLOOD GAS HEMOGLOBIN 14.2 g/dL (11.7-17.4); ARTERIAL BLOOD GAS O2 CAPACITY 19.5 mL/dl (16-24); ARTERIAL BLOOD GAS O2 CONTENT 19.4 ML/dl (15-23); ARTERIAL BLOOD GAS O2 SAT 99.7 % (95-98); ARTERIAL BLOOD GAS PCO2 38 mm/Hg (35-45); ARTERIAL BLOOD GAS PH 7.47 (7.35-7.45); ARTERIAL BLOOD GAS TCO2 28.9 mmol.L (22-28)
[2018-07-11] MEDS: Propofol 10 mg/ml 1,000 MG/100 ML VIAL IV PRN ×2 (05:51→08:30)
[2018-07-11 07:09] LABS: ALB/GLOB RATIO 1.1 (1.1-1.8); ALBUMIN 3.5 g/dL (3.0-4.8); ALT/SGPT 110 U/L (7-56); AST/SGOT 184 U/L (17-59); BLOOD UREA NITROGEN 15 mg/dL (7-21); CALCIUM 8.8 mg/dL (8.4-10.5); GFR NON-AFRICAN AMERICAN > 60
--- NOTE | 2018-07-11 07:28 | CP.PCM.PN ---
<Lizbeth Baldwin - Last Filed: 07/11/18 14:23> Subjective - Date & Time of Evaluation Date of Evaluation: 07/11/18 Time of Evaluation: 09:30 - Subjective Subjective: Lizbeth Baldwin DO, PGY-2: Neurology Progress Note for Dr. Hackett Patient was seen and examined at bedside. Propofol was paused for 21 minutes prior to examining patient. Patient would open eyes to touch. He did not follow commands. He did sporadically move hands and arms. The patient would not track with his eyes past midline. Objective - Vital Signs/Intake and Output Vital Signs (last 24 hours): Temp Pulse Resp BP Pulse Ox 100.2 F H 93 H 33 H 136/87 97 07/10/18 22:40 07/10/18 22:40 07/10/18 07:39 07/10/18 22:30 07/10/18 22:40 Intake and Output: 07/11/18 07/11/18 06:59 18:59 Intake Total 100 Balance 100 - Medications Medications: Current Medications Amiodarone HCl (Cordarone) 400 mg PO BID [facility] Last Admin: 07/10/18 18:25 Dose: 400 mg Artificial Tears (Puralube Opht Oint) 1 appl OU Q4H PRN PRN Reason: Dry eyes Artificial Tears (Refresh Opth Soln) 0.3 ml OU Q4H PRN PRN Reason: Dry eyes Last Admin: 07/09/18 10:37 Dose: 2 d Aspirin (Aspirin Supp) 300 mg RC DAILY [facility] Last Admin: 07/10/18 09:36 Dose: 300 mg Famotidine (Pepcid) 20 mg IVP DAILY [facility] Last Admin: 07/10/18 09:36 Dose: 20 mg Fentanyl Citrate (Fentanyl Citrate/Sodium Chloride 1 Mg/100 Ml) 1,000 mcg in 1 00 mls @ 2 mls/hr IV .Q24H PRN; Protocol PRN Reason: TITRATE PER MD ORDER Last Titration: 07/10/18 02:25 Dose: Infused Propofol (Diprivan) 1,000 mg in 100 mls @ 2.245 mls/hr IV .Q24H PRN; Protocol PRN Reason: TITRATE PER MD ORDER Last Admin: 07/11/18 05:51 Dose: 35 mcg/kg/min, 15.717 mls/hr Heparin Sodium/Sodium Chloride (Heparin 30967 Units/250ml 1/2 Normal Saline) 25,000 units in 250 mls @ 8.981 mls/hr IV .Q24H [facility]; Protocol Last Titration: 07/10/18 15:48 Dose: 12 units/kg/hr, 8.981 mls/hr Doxycycline Hyclate 100 mg/ (Sodium Chloride) 100 mls @ 100 mls/hr IVPB Q12 [facility]; Protocol Last Admin: 07/10/18 22:04 Dose: 100 mls/hr Piperacillin Sod/Tazobactam Sod (Zosyn 3.375 In Ns 100ml) 100 mls @ 200 mls/hr IVPB Q6 [facility]; Protocol Stop: 07/17/18 00:01 Last Admin: 07/11/18 05:53 Dose: 200 mls/hr - Labs Labs: 07/11/18 04:10 07/11/18 05:10 PT 12.7 SECONDS (9.4-12.5) H 07/09/18 21:10 INR 1.14 07/09/18 21:10 APTT 39.5 Seconds (26.9-38.3) H 07/11/18 04:10 - Constitutional Appears: No Acute Distress - Head Exam Head Exam: ATRAUMATIC, NORMOCEPHALIC - Eye Exam Additional comments: pupils were sluggish - ENT Exam ENT Exam: Mucous Membranes Moist - Neck Exam Neck Exam: Normal Inspection - Respiratory Exam Respiratory Exam: NORMAL BREATHING PATTERN. absent: Accessory Muscle Use - Cardiovascular Exam Cardiovascular Exam: RRR, +S1, +S2 - Extremities Exam Extremities Exam: Normal Inspection. absent: Calf Tenderness - Neurological Exam Neurological Exam: absent: Alert, Awake Additional comments: patient does not follow commands, does not track midline, he breaths over the vent, opens eyes to painful stimuli, withdrawing from paindul stimuli less so today - Skin Skin Exam: Dry, Intact, Normal Color, Warm Assessment and Plan - Assessment and Plan (Free Text) Assessment: 48 year old black male with an unknown medical history who sustained a witnessed cardiac arrest in the field with the original rhythm being ventricular fibrillation. CPR was conducted for 25 minutes with the utilization of epinephrine, narcan, amiodarone, and defibrillation. ROSC was obtained. Patient has finished receiving therapeutic hypothermia for 24 hours and has been re warmed. 1) Cardiac Arrest with ROSC obtained s/p therapeutic hypothermia - Repeat CT of the head reports no evidence of anoxic brain injury; however, given the discrepancy with the clinical exam noted today, we will order for an MRI of the brain to better evaluate for hypoxic brain injury and assess the posterior fossa. - Video EEG interpretation states the findings are in keeping with a moderate to severe non specific disturbance of cortical activity, in keeping with a diffuse chase matter dysfunction. The findings do not suggest a specific etiology - No evidence of non-convulsive status epilepticus on video EEG and therefore the video EEG can be discontinued Case was reviewed and discussed with attending physician, Dr. Hackett <Hai Hackett - Last Filed: 07/13/18 18:20> Objective - Vital Signs/Intake and Output Vital Signs (last 24 hours): Temp Pulse Resp BP Pulse Ox 99.5 F 49 L 20 146/92 H 100 07/13/18 16:00 07/13/18 18:00 07/12/18 07:54 07/13/18 18:00 07/13/18 18:00 Intake and Output: 07/13/18 07/13/18 06:59 18:59 Intake Total 518 Output Total 450 Balance 68 - Medications Medications: Current Medications Amiodarone HCl (Cordarone) 200 mg PO DAILY [facility] Artificial Tears (Puralube Opht Oint) 1 appl OU Q4H PRN PRN Reason: Dry eyes Artificial Tears (Refresh Opth Soln) 0.3 ml OU Q4H PRN PRN Reason: Dry eyes Last Admin: 07/09/18 10:37 Dose: 2 d Aspirin (Aspirin Chewable) 81 mg PO DAILY [facility] Last Admin: 07/13/18 10:09 Dose: 81 mg Enoxaparin Sodium (Lovenox) 40 mg SC DAILY [facility]; Protocol Famotidine (Pepcid) 20 mg IVP DAILY [facility] Last Admin: 07/13/18 10:09 Dose: 20 mg Doxycycline Hyclate 100 mg/ (Sodium Chloride) 100 mls @ 100 mls/hr IVPB Q12 [facility]; Protocol Last Admin: 07/13/18 10:05 Dose: 100 mls/hr Piperacillin Sod/Tazobactam Sod (Zosyn 3.375 In Ns 100ml) 100 mls @ 200 mls/hr IVPB Q6 [facility]; Protocol Stop: 07/17/18 00:01 Last Admin: 07/13/18 17:10 Dose: 200 mls/hr - Labs Labs: 07/13/18 05:00 07/13/18 05:00 PT 12.7 SECONDS (9.4-12.5) H 07/09/18 21:10 INR 1.14 07/09/18 21:10 APTT 50.0 Seconds (26.9-38.3) H 07/12/18 04:00 Attending/Attestation - Attestation I have personally seen and examined this patient.: Yes I have fully participated in the care of the patient.: Yes I have reviewed all pertinent clinical information, including history, physical exam and plan: Yes Notes (Text): I agree with the assessment and plan as outlined above.
--- NOTE | 2018-07-11 08:51 | CP.CCUPN ---
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 Saturation (95-98) % ABG O2 Content (15-23) ML/dl ABG Base Excess (-2.0-3.0) mmol/L ABG Hemoglobin (11.7-17.4) g/dL ABG Carboxyhemoglobin (0.5-1.5) % POC ABG HHb (Measured) (0-5) % ABG Methemoglobin (0.0-3.0) % ABG O2 Capacity (16-24) mL/dl Hgb O2 Saturation (95.0-98.0) % FiO2 % Sodium (132-148) mmol/L Potassium (3.6-5.0) mmol/L Chloride (98-107) mmol/L Carbon Dioxide (21-33) mmol/L Anion Gap (10-20) BUN (7-21) mg/dL Creatinine (0.8-1.5) mg/dl Est GFR ( Amer) Est GFR (Non-Af Amer) Random Glucose (70-110) mg/dL Calcium (8.4-10.5) mg/dL Phosphorus (2.5-4.5) mg/dL Magnesium (1.7-2.2) mg/dL Total Bilirubin (0.2-1.3) mg/dL AST (17-59) U/L ALT (7-56) U/L Alkaline Phosphatase (38-126) U/L Total Protein (5.8-8.3) g/dL Albumin (3.0-4.8) g/dL Globulin gm/dL Albumin/Globulin Ratio (1.1-1.8) HIV 1&2 Ag/Ab, 4th Gen Nonreactive (Nonreactive) Laboratory Results - last 24 hr 07/10/18 07/10/18 07/11/18 04:30 21:54 04:10 WBC 15.9 H D RBC 4.24 Hgb 13.4 L Hct 40.5 L MCV 95.5 D MCH 31.6 MCHC 33.1 RDW 13.0 Plt Count 152 MPV 10.6 Neut % (Auto) 82.1 H Lymph % (Auto) 9.5 L Sumner % (Auto) 8.3 H Eos % (Auto) 0.0 L Baso % (Auto) 0.1 Lymph # (Auto) 1.6 Sumner # (Auto) 1.4 H Eos # (Auto) 0.0 Baso # (Auto) 0.01 Absolute Neuts (auto) 13.64 H APTT 59.2 H pCO2 pO2 HCO3 ABG pH ABG Total CO2 ABG O2 Saturation ABG O2 Content ABG Base Excess ABG Hemoglobin ABG Carboxyhemoglobin POC ABG HHb (Measured) ABG Methemoglobin ABG O2 Capacity Hgb O2 Saturation FiO2 Sodium Potassium Chloride Carbon Dioxide Anion Gap BUN Creatinine Est GFR ( Amer) Est GFR (Non-Af Amer) Random Glucose Calcium Phosphorus Magnesium Total Bilirubin AST ALT Alkaline Phosphatase Total Protein Albumin Globulin Albumin/Globulin Ratio HIV 1&2 Ag/Ab, 4th Gen Nonreactive 07/11/18 07/11/18 07/11/18 04:10 05:09 05:10 WBC RBC Hgb Hct MCV MCH MCHC RDW Plt Count MPV Neut % (Auto) Lymph % (Auto) Sumner % (Auto) Eos % (Auto) Baso % (Auto) Lymph # (Auto) Sumner # (Auto) Eos # (Auto) Baso # (Auto) Absolute Neuts (auto) APTT 39.5 H pCO2 38 pO2 116.0 H HCO3 27.7 ABG pH 7.47 H ABG Total CO2 28.9 H ABG O2 Saturation 99.7 H ABG O2 Content 19.4 ABG Base Excess 3.9 H ABG Hemoglobin 14.2 ABG Carboxyhemoglobin 2.0 H POC ABG HHb (Measured) 0.3 ABG Methemoglobin 1.3 ABG O2 Capacity 19.5 Hgb O2 Saturation 96.5 FiO2 40.0 Sodium 142 Potassium 3.8 Chloride 106 Carbon Dioxide 30 Anion Gap 10 BUN 15 Creatinine 1.0 Est GFR ( Amer) > 60 Est GFR (Non-Af Amer) > 60 Random Glucose 79 Calcium 8.8 Phosphorus Magnesium Total Bilirubin 1.0 AST 184 H D ALT 110 H Alkaline Phosphatase 89 Total Protein 6.5 Albumin 3.5 Globulin 3.1 Albumin/Globulin Ratio 1.1 HIV 1&2 Ag/Ab, 4th Gen 07/11/18 07/11/18 05:10 12:20 WBC RBC Hgb Hct MCV MCH MCHC RDW Plt Count MPV Neut % (Auto) Lymph % (Auto) Sumner % (Auto) Eos % (Auto) Baso % (Auto) Lymph # (Auto) Sumner # (Auto) Eos # (Auto) Baso # (Auto) Absolute Neuts (auto) APTT 48.1 H pCO2 pO2 HCO3 ABG pH ABG Total CO2 ABG O2 Saturation ABG O2 Content ABG Base Excess ABG Hemoglobin ABG Carboxyhemoglobin POC ABG HHb (Measured) ABG Methemoglobin ABG O2 Capacity Hgb O2 Saturation FiO2 Sodium Potassium Chloride Carbon Dioxide Anion Gap BUN Creatinine Est GFR ( Amer) Est GFR (Non-Af Amer) Random Glucose Calcium Phosphorus 3.2 Magnesium 2.3 H Total Bilirubin AST ALT Alkaline Phosphatase Total Protein Albumin Globulin Albumin/Globulin Ratio HIV 1&2 Ag/Ab, 4th Gen Radiology Impressions: Radiology Impressions Chest X-Ray 07/11/18 03:21 IMPRESSION: No active disease. Critical Care Progress Note - Nutrition Nutrition: Nutrition Category Date Time Status NPO Diet [DIET] Diets 07/08/18 Dinner Ordered Addendum Addendum: 07/11/18 17:31 MICU Attending Addendum Patient seen and examined with housestaff case discussed on round agree with resident note above with the following additions/exceptions: 48 yo M with unknown PMH who presented via EMS s/p VFIB cardiac arrest and s/p ROSC. s/p targetted temp now re-warmed improved mental status but still inconsistent exam keep off sedation today and re-evaluate overnight was biting on ETT, needed to be exchanged with new ETT hold off on neuroprognostication until at least 72 hours f/u EEG as per neuro cont amio f/u cardio recs start ASA for MD on heparin drip low Vt ventilation broad spcedtrum abx as per ID wbc trending down, woudl de-escalate plan to wean sedation and possibloe extubation within 24-48 hours Rest of care as mentioned in above resident note Susana Boone MD Pulmonary Critical Care Sleep Medicine
--- NOTE | 2018-07-11 09:18 | RAD ---
Date of service: 07/11/2018 HISTORY: ett COMPARISON: 07/10/2018 TECHNIQUE: 1 view obtained. FINDINGS: LUNGS: No active pulmonary disease. PLEURA: No significant pleural effusion identified, no pneumothorax apparent. CARDIOVASCULAR: No aortic atherosclerotic calcification present. Normal cardiac size. No pulmonary vascular congestion. OSSEOUS STRUCTURES: No significant abnormalities. VISUALIZED UPPER ABDOMEN: Normal. OTHER FINDINGS: Endotracheal tube and nasogastric tube in satisfactory position IMPRESSION: No active disease.
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
--- NOTE | 2018-07-11 09:58 | PN ---
DATE: 07/11/2018 SUBJECTIVE: The patient is sedated on a ventilator. PHYSICAL EXAMINATION: VITAL SIGNS: Blood pressure is 136/87, heart rate is in the 90s. Temperature is 100.2. NECK: Negative JVD. LUNGS: No rales noted. HEART: Reveals S1, S2. EXTREMITIES: Without change. LABORATORY DATA: White count is down to 15.9. Chemistries, BUN and creatinine are unremarkable. IMPRESSION: 1. Status post ventricular fibrillation arrest. 2. Dilated cardiomyopathy. 3. Respiratory failure. 4. Non-ST elevation myocardial infarction, likely a secondary event. 5. Questionable anoxic cephalopathy. PLAN: Given these findings, the patient is off IV amiodarone now, receiving amiodarone by the NG tube. The patient is hemodynamically stable for EEG today. Kelby Guerrero MD
--- NOTE | 2018-07-11 10:33 | CP.PCM.PN ---
<Lorena Dykes - Last Filed: 07/11/18 10:58> Subjective - Date & Time of Evaluation Date of Evaluation: 07/11/18 Time of Evaluation: 08:30 - Subjective Subjective: Lorena Dykes, PGY-1 Medicine Progress Note: Pt was seen and examined this AM at bedside. Pt overnight bit his ETT which resulted in reintubation this AM as well as restarting his sedation. Pt is currently intubated and sedated and is unable to participate in ROS, but is able to move all extremities. Objective - Vital Signs/Intake and Output Vital Signs (last 24 hours): Temp Pulse Resp BP Pulse Ox 100.2 F H 69 33 H 126/85 97 07/10/18 22:40 07/11/18 09:52 07/10/18 07:39 07/11/18 09:52 07/10/18 22:40 Intake and Output: 07/11/18 07/11/18 06:59 18:59 Intake Total 100 120 Balance 100 120 - Medications Medications: Current Medications Amiodarone HCl (Cordarone) 400 mg PO BID [facility] Last Admin: 07/11/18 09:52 Dose: 400 mg Artificial Tears (Puralube Opht Oint) 1 appl OU Q4H PRN PRN Reason: Dry eyes Artificial Tears (Refresh Opth Soln) 0.3 ml OU Q4H PRN PRN Reason: Dry eyes Last Admin: 07/09/18 10:37 Dose: 2 d Aspirin (Aspirin Chewable) 81 mg PO DAILY [facility] Last Admin: 07/11/18 09:51 Dose: 81 mg Famotidine (Pepcid) 20 mg IVP DAILY [facility] Last Admin: 07/11/18 09:52 Dose: 20 mg Propofol (Diprivan) 1,000 mg in 100 mls @ 2.245 mls/hr IV .Q24H PRN; Protocol PRN Reason: TITRATE PER MD ORDER Last Titration: 07/11/18 09:30 Dose: 0 mcg/kg/min, 0 mls/hr Heparin Sodium/Sodium Chloride (Heparin 38401 Units/250ml 1/2 Normal Saline) 25,000 units in 250 mls @ 8.981 mls/hr IV .Q24H RITA; Protocol Last Titration: 07/10/18 15:48 Dose: 12 units/kg/hr, 8.981 mls/hr Doxycycline Hyclate 100 mg/ (Sodium Chloride) 100 mls @ 100 mls/hr IVPB Q12 RITA; Protocol Last Admin: 07/11/18 10:00 Dose: 100 mls/hr Piperacillin Sod/Tazobactam Sod (Zosyn 3.375 In Ns 100ml) 100 mls @ 200 mls/hr IVPB Q6 RITA; Protocol Stop: 07/17/18 00:01 Last Admin: 07/11/18 05:53 Dose: 200 mls/hr - Labs Labs: 07/11/18 04:10 07/11/18 05:10 PT 12.7 SECONDS (9.4-12.5) H 07/09/18 21:10 INR 1.14 07/09/18 21:10 APTT 39.5 Seconds (26.9-38.3) H 07/11/18 04:10 - Constitutional Appears: Intubated, Sedated - Head Exam Head Exam: ATRAUMATIC, NORMAL INSPECTION, NORMOCEPHALIC - Eye Exam Pupil Exam: Miosis, Additional Comments: pupils pinpoint reactive but sluggish - ENT Exam ENT Exam: Mucous Membranes Dry - Respiratory Exam Additional comments: intubated, on vent - Cardiovascular Exam Cardiovascular Exam: REGULAR RHYTHM, +S1, +S2 - GI/Abdominal Exam GI & Abdominal Exam: Soft - Extremities Exam Extremities exam: Negative for: pedal edema - Neurological Exam Neurological exam: Altered - Skin Skin Exam: Normal Color, Warm Assessment & Plan - Assessment and Plan (Free Text) Assessment: 48 year old male presented to the emergency department, with unknown past medical history brought in by ambulance after a witnessed cardiac arrest with ventricular fibrillation. s/p CPR for 25 minutes, 3x epinephrines, 2 narcans, 5 shocks and 3x Amiodarone in the field. Pt achieved ROSC and is taken off code freeze yesterday. Pt reintubated this AM since pt bit his ETT. Will have sedation vacation today. Plan: Cardiac Arrest s/p ROSC - Pt had vfib in field, 5x shock s/p ROSC - Pt had code freeze completed at 5:30 pm 07/09 - Will have neurro reassessed once pt is off sedation and extubated. - EKG shows NSR @ 68. L axis deviation - Initial trop .06, 9.05, 7.6 - Urine tox positive for opioids and cannibinoids - Cardio consulted, Dr. Guerrero, no plan for intervention at this time - Cont Heparin drip - Cont propofol drip - Hemoglobin A1C - 5.0 - lipid panel - Chol 184, LDL - 84, HDL - 85 - TSH/T4 - TSH = 6.37, T4 = wnl - Echo LVEF - 13% - Monitored in the ICU CXR/CT chest with bilateral pulmonary edema, possible infiltrates - likely secondary from aspiration - Cont Zosyn and doxy in ICU - lasix dose given in ED - continue to monitor - repeat chest xray in AM - Resolved atelectasis AMS secondary to cardiac arrest - Possible anoxic injury - Pts neuro status will be assessed once pt is extubated and off of sedation - CT head negative for acute pathology - Video EEG: Abnormal: Mod to severe diffuse slowing and disorganization of EEG - Currently sedated - Propofol drip - Neurology, consulted, Dr. Hackett follow recs - Seizure precautions - Neuro checks PPx: GI: Protonix 40 IVP DVT: Pt is code freeze Case seen and discussed with Dr. Radha Dykes, PGY1 <Brayden Garcia - Last Filed: 07/11/18 15:27> Objective - Vital Signs/Intake and Output Vital Signs (last 24 hours): Temp Pulse Resp BP Pulse Ox 99.1 F 72 33 H 132/76 100 07/11/18 11:30 07/11/18 11:30 07/10/18 07:39 07/11/18 11:30 07/11/18 11:30 Intake and Output: 07/11/18 07/11/18 06:59 18:59 Intake Total 100 170 Balance 100 170 - Medications Medications: Current Medications Amiodarone HCl (Cordarone) 400 mg PO BID [facility] Last Admin: 07/11/18 09:52 Dose: 400 mg Artificial Tears (Puralube Opht Oint) 1 appl OU Q4H PRN PRN Reason: Dry eyes Artificial Tears (Refresh Opth Soln) 0.3 ml OU Q4H PRN PRN Reason: Dry eyes Last Admin: 07/09/18 10:37 Dose: 2 d Aspirin (Aspirin Chewable) 81 mg PO DAILY [facility] Last Admin: 07/11/18 09:51 Dose: 81 mg Famotidine (Pepcid) 20 mg IVP DAILY [facility] Last Admin: 07/11/18 09:52 Dose: 20 mg Propofol (Diprivan) 1,000 mg in 100 mls @ 2.245 mls/hr IV .Q24H PRN; Protocol PRN Reason: TITRATE PER MD ORDER Last Titration: 07/11/18 09:30 Dose: 0 mcg/kg/min, 0 mls/hr Heparin Sodium/Sodium Chloride (Heparin 16652 Units/250ml 1/2 Normal Saline) 25,000 units in 250 mls @ 8.981 mls/hr IV .Q24H RITA; Protocol Last Admin: 07/11/18 14:29 Dose: 21.37 units/kg/hr, 16 mls/hr Doxycycline Hyclate 100 mg/ (Sodium Chloride) 100 mls @ 100 mls/hr IVPB Q12 RITA; Protocol Last Admin: 07/11/18 10:00 Dose: 100 mls/hr Piperacillin Sod/Tazobactam Sod (Zosyn 3.375 In Ns 100ml) 100 mls @ 200 mls/hr IVPB Q6 RITA; Protocol Stop: 07/17/18 00:01 Last Admin: 07/11/18 12:15 Dose: 200 mls/hr - Labs Labs: 07/11/18 04:10 07/11/18 05:10 PT 12.7 SECONDS (9.4-12.5) H 07/09/18 21:10 INR 1.14 07/09/18 21:10 APTT 48.1 Seconds (26.9-38.3) H 07/11/18 12:20 Attending/Attestation - Attestation I have personally seen and examined this patient.: Yes I have fully participated in the care of the patient.: Yes I have reviewed all pertinent clinical information, including history, physical exam and plan: Yes Notes (Text): 07/11/18 15:20 Attending note; Patient seen and examined with resident in ICU. Patient is currently intubated and sedated. Currently on propofol. Patient had his ET tube replaced last night. On video EEG monitor. Patient is a 48 year old male presented to the emergency department, with unknown past medical history brought in by ambulance after a witnessed cardiac arrest with ventricular fibrillation. 1. Status Post cardiac arrest; currently intubated and sedated. Status post hypothermia protocol. Patient had episodes of V. fib and cardioverted in the field.Got epinephrine, narcan, amiodarone, and defibrillation in the field. Approximate down time is 25 minutes. on po amiodarone. Case discussed with esthetician permanent makeup artist in detail. on IV heparin drip. Repeat head CT is negative for acute findings. 3. Severe cardiomyopathy. EchoCardiogram showed ejection fraction of 13%. 4. Elevated troponin; non-ST elevation [place] versus post CPR. Trending down. Continue aspirin and heparin drip. 5. Cardiac arrest ;neurology evaluation appreciated. Repeat CT is negative. Video EEG in progress. Will follow up with neurology closely. Reevaluate neurological status once extubated. 3. Status post intubation; weaning parameters as per ICU. 4. Urine drug screen is positive for opiates and cannabis. 5. leukocytosis; mostly secondary to aspiration pneumonia. Improving. blood and urine cultures negative so far. ID evaluation appreciated. Currently on Zosyn and doxycycline. 6. DVT/GI prophylaxis. Monitor patient closely in ICU. Palliative care evaluation appreciated.
--- NOTE | 2018-07-11 11:25 | CP.PCM.PN ---
Subjective - Date & Time of Evaluation Date of Evaluation: 07/11/18 Time of Evaluation: 09:20 - Subjective Subjective: Patient continues to be on the ventilator, still not very responsive, undergoing video EEG, has low grade fevers. Objective - Vital Signs/Intake and Output Vital Signs (last 24 hours): Temp Pulse Resp BP Pulse Ox 100.2 F H 93 H 33 H 136/87 97 07/10/18 22:40 07/10/18 22:40 07/10/18 07:39 07/10/18 22:30 07/10/18 22:40 Intake and Output: 07/10/18 07/11/18 18:59 06:59 Intake Total 1090 Output Total 1100 Balance -10 - Medications Medications: Current Medications Amiodarone HCl (Cordarone) 400 mg PO BID [facility] Last Admin: 07/10/18 18:25 Dose: 400 mg Artificial Tears (Puralube Opht Oint) 1 appl OU Q4H PRN PRN Reason: Dry eyes Artificial Tears (Refresh Opth Soln) 0.3 ml OU Q4H PRN PRN Reason: Dry eyes Last Admin: 07/09/18 10:37 Dose: 2 d Aspirin (Aspirin Supp) 300 mg RC DAILY [facility] Last Admin: 07/10/18 09:36 Dose: 300 mg Famotidine (Pepcid) 20 mg IVP DAILY [facility] Last Admin: 07/10/18 09:36 Dose: 20 mg Fentanyl Citrate (Fentanyl Citrate/Sodium Chloride 1 Mg/100 Ml) 1,000 mcg in 100 mls @ 2 mls/hr IV .Q24H PRN; Protocol PRN Reason: TITRATE PER MD ORDER Last Titration: 07/10/18 02:25 Dose: Infused Propofol (Diprivan) 1,000 mg in 100 mls @ 2.245 mls/hr IV .Q24H PRN; Protocol PRN Reason: TITRATE PER MD ORDER Last Admin: 07/10/18 22:05 Dose: 35 mcg/kg/min, 15.717 mls/hr Heparin Sodium/Sodium Chloride (Heparin 90313 Units/250ml 1/2 Normal Saline) 25,000 units in 250 mls @ 8.981 mls/hr IV .Q24H RITA; Protocol Last Titration: 07/10/18 15:48 Dose: 12 units/kg/hr, 8.981 mls/hr Doxycycline Hyclate 100 mg/ (Sodium Chloride) 100 mls @ 100 mls/hr IVPB Q12 RITA; Protocol Last Admin: 07/10/18 22:04 Dose: 100 mls/hr Piperacillin Sod/Tazobactam Sod (Zosyn 3.375 In Ns 100ml) 100 mls @ 200 mls/hr IVPB Q6 RITA; Protocol Stop: 07/17/18 00:01 Last Admin: 07/10/18 18:25 Dose: 200 mls/hr - Labs Labs: 07/10/18 04:30 07/10/18 04:30 PT 12.7 SECONDS (9.4-12.5) H 07/09/18 21:10 INR 1.14 07/09/18 21:10 APTT 59.2 Seconds (26.9-38.3) H 07/10/18 21:54 - Constitutional Appears: Other (intubated, sedated) - Head Exam Additional comments: electrodes in place - ENT Exam Additional comments: ET tube in place - Respiratory Exam Respiratory Exam: Decreased Breath Sounds - Cardiovascular Exam Cardiovascular Exam: +S1, +S2 - GI/Abdominal Exam GI & Abdominal Exam: Soft. absent: Tenderness Assessment and Plan - Assessment and Plan (Free Text) Plan: Assessment Systemic inflammatory response syndrome after cardiac arrest probably from cardiac arrhythmia, consider severe sepsis with VDRF due to aspiration pneumonia Plan will d/c Vancomycin since MRSA screen is negative, continue Zosyn and Doxycycline day 3 pending sputum cx; blood cx and urine Legionella Ag is negative reviewed CT chest and CXR prognosis is worsening
--- NOTE | 2018-07-11 11:59 | CP.PCM.CON ---
History of Present Illness - History of Present Illness History of Present Illness: Palliative consult requested by Dr Garcia Reason: Goals of care This is a 48 year old male with unknown PMH was brought in by EMS after he was found unconscious in the field. EMS found him to be in ventricular fibrillation. ACLS was done in the field > intubated> ROSC obtained and transported to the ED. Patient is seen in the MICU,he 24 hrs is s/p hypothermia protocol. Head CT x2: No acute intracranial findings CT chest/ab/pelvis: Findings in lung may represent pulmonary edema or aspiration pneumonitis,moderate pleural effusions,fluid filled distended stomach, fluid in small bowel loops and colon. Chest x ray today showed no active disease. ECHO: LV normal size, systolic function severely impaired, EF 13%, significant r egional wall motion abnormalities, trace AR. EEG: Abnormal, moderate to severe diffuse slowing and disorganization. No seizures, not in status epilepticus. PMH: unknown PSH: unknown Social History: unknown Family History: unknown Advance Care Planning: unknown Review of Systems: Unable to obtain, intubated, sedated Past Patient History - Past Social History Smoking Status: Unknown If Ever Smoked - CARDIAC Hx Cardiac Disorders: No - PULMONARY Hx Respiratory Disorders: No - NEUROLOGICAL Hx Neurological Disorder: No - HEENT Hx HEENT Problems: No - RENAL Hx Chronic Kidney Disease: No - ENDOCRINE/METABOLIC Hx Endocrine Disorders: No - HEMATOLOGICAL/ONCOLOGICAL Hx Blood Disorders: No - INTEGUMENTARY Hx Dermatological Problems: No - MUSCULOSKELETAL/RHEUMATOLOGICAL Hx Musculoskeletal Disorders: No Hx Falls: Yes - GASTROINTESTINAL Hx Gastrointestinal Disorders: No - GENITOURINARY/GYNECOLOGICAL Hx Genitourinary Disorders: No - PSYCHIATRIC Hx Psychophysiologic Disorder: No - SURGICAL HISTORY Hx Surgeries: No - ANESTHESIA Hx Anesthesia: No Meds Allergies/Adverse Reactions: Allergies Allergy/AdvReac Type Severity Reaction Status Date / Time Unobtainable Allergy Verified 07/08/18 14:31 - Medications Medications: Current Medications Amiodarone HCl (Cordarone) 400 mg PO BID [facility] Last Admin: 07/11/18 09:52 Dose: 400 mg Artificial Tears (Puralube Opht Oint) 1 appl OU Q4H PRN PRN Reason: Dry eyes Artificial Tears (Refresh Opth Soln) 0.3 ml OU Q4H PRN PRN Reason: Dry eyes Last Admin: 07/09/18 10:37 Dose: 2 d Aspirin (Aspirin Chewable) 81 mg PO DAILY [facility] Last Admin: 07/11/18 09:51 Dose: 81 mg Famotidine (Pepcid) 20 mg IVP DAILY [facility] Last Admin: 07/11/18 09:52 Dose: 20 mg Propofol (Diprivan) 1,000 mg in 100 mls @ 2.245 mls/hr IV .Q24H PRN; Protocol PRN Reason: TITRATE PER MD ORDER Last Titration: 07/11/18 09:30 Dose: 0 mcg/kg/min, 0 mls/hr Heparin Sodium/Sodium Chloride (Heparin 93998 Units/250ml 1/2 Normal Saline) 25,000 units in 250 mls @ 8.981 mls/hr IV .Q24H [facility]; Protocol Last Titration: 07/10/18 15:48 Dose: 12 units/kg/hr, 8.981 mls/hr Doxycycline Hyclate 100 mg/ (Sodium Chloride) 100 mls @ 100 mls/hr IVPB Q12 [facility]; Protocol Last Admin: 07/11/18 10:00 Dose: 100 mls/hr Piperacillin Sod/Tazobactam Sod (Zosyn 3.375 In Ns 100ml) 100 mls @ 200 mls/hr IVPB Q6 [facility]; Protocol Stop: 07/17/18 00:01 Last Admin: 07/11/18 05:53 Dose: 200 mls/hr Physical Exam - Constitutional Appears: No Acute Distress - Head Exam Head Exam: NORMOCEPHALIC - Eye Exam Eye Exam: Normal appearance, PERRL - ENT Exam ENT Exam: Mucous Membranes Moist - Respiratory Exam Respiratory Exam: Clear to Auscultation Bilateral - Cardiovascular Exam Cardiovascular Exam: REGULAR RHYTHM, +S1, +S2 - GI/Abdominal Exam GI & Abdominal Exam: Hypoactive Bowel Sounds, Soft - Extremities Exam Extremities exam: Positive for: normal inspection, pedal pulses present - Neurological Exam Additional comments: sedated - Skin Skin Exam: Dry, Warm - Additional Findings Additional findings: Palliative performance scale rating 20% Results - Vital Signs Recent Vital Signs: Last Vital Signs Temp 99.1 F 07/11/18 11:30 Pulse 72 07/11/18 11:30 Resp 33 H 07/10/18 07:39 BP 132/76 07/11/18 11:30 Pulse Ox 100 07/11/18 11:30 - Labs Result Diagrams: 07/11/18 04:10 07/11/18 05:10 Labs: Laboratory Results - last 24 hr 07/08/18 07/09/18 07/10/18 22:03 05:20 04:30 WBC RBC Hgb Hct MCV MCH MCHC RDW Plt Count MPV Neut % (Auto) Lymph % (Auto) Wilkes % (Auto) Eos % (Auto) Baso % (Auto) Lymph # (Auto) Wilkes # (Auto) Eos # (Auto) Baso # (Auto) Absolute Neuts (auto) APTT pCO2 pO2 HCO3 ABG pH ABG Total CO2 ABG O2 Saturation ABG O2 Content ABG Base Excess ABG Hemoglobin ABG Carboxyhemoglobin POC ABG HHb (Measured) ABG Methemoglobin ABG O2 Capacity Hgb O2 Saturation FiO2 Sodium Potassium Chloride Carbon Dioxide Anion Gap BUN Creatinine Est GFR ( Amer) Est GFR (Non-Af Amer) Random Glucose Calcium Ionized Calcium 4.1 L 4.4 L Phosphorus Magnesium Total Bilirubin AST ALT Alkaline Phosphatase Total Protein Albumin Globulin Albumin/Globulin Ratio Procalcitonin 5.90 H HIV 1&2 Ag/Ab, 4th Gen 07/10/18 07/10/18 07/10/18 04:30 13:30 21:54 WBC RBC Hgb Hct MCV MCH MCHC RDW Plt Count MPV Neut % (Auto) Lymph % (Auto) Wilkes % (Auto) Eos % (Auto) Baso % (Auto) Lymph # (Auto) Wilkes # (Auto) Eos # (Auto) Baso # (Auto) Absolute Neuts (auto) APTT 33.6 59.2 H pCO2 pO2 HCO3 ABG pH ABG Total CO2 ABG O2 Saturation ABG O2 Content ABG Base Excess ABG Hemoglobin ABG Carboxyhemoglobin POC ABG HHb (Measured) ABG Methemoglobin ABG O2 Capacity Hgb O2 Saturation FiO2 Sodium Potassium Chloride Carbon Dioxide Anion Gap BUN Creatinine Est GFR ( Amer) Est GFR (Non-Af Amer) Random Glucose Calcium Ionized Calcium Phosphorus Magnesium Total Bilirubin AST ALT Alkaline Phosphatase Total Protein Albumin Globulin Albumin/Globulin Ratio Procalcitonin HIV 1&2 Ag/Ab, 4th Gen Nonreactive 07/11/18 07/11/18 07/11/18 04:10 04:10 05:09 WBC 15.9 H D RBC 4.24 Hgb 13.4 L Hct 40.5 L MCV 95.5 D MCH 31.6 MCHC 33.1 RDW 13.0 Plt Count 152 MPV 10.6 Neut % (Auto) 82.1 H Lymph % (Auto) 9.5 L Wilkes % (Auto) 8.3 H Eos % (Auto) 0.0 L Baso % (Auto) 0.1 Lymph # (Auto) 1.6 Wilkes # (Auto) 1.4 H Eos # (Auto) 0.0 Baso # (Auto) 0.01 Absolute Neuts (auto) 13.64 H APTT 39.5 H pCO2 38 pO2 116.0 H HCO3 27.7 ABG pH 7.47 H ABG Total CO2 28.9 H ABG O2 Saturation 99.7 H ABG O2 Content 19.4 ABG Base Excess 3.9 H ABG Hemoglobin 14.2 ABG Carboxyhemoglobin 2.0 H POC ABG HHb (Measured) 0.3 ABG Methemoglobin 1.3 ABG O2 Capacity 19.5 Hgb O2 Saturation 96.5 FiO2 40.0 Sodium Potassium Chloride Carbon Dioxide Anion Gap BUN Creatinine Est GFR ( Amer) Est GFR (Non-Af Amer) Random Glucose Calcium Ionized Calcium Phosphorus Magnesium Total Bilirubin AST ALT Alkaline Phosphatase Total Protein Albumin Globulin Albumin/Globulin Ratio Procalcitonin HIV 1&2 Ag/Ab, 4th Gen 07/11/18 07/11/18 05:10 05:10 WBC RBC Hgb Hct MCV MCH MCHC RDW Plt Count MPV Neut % (Auto) Lymph % (Auto) Wilkes % (Auto) Eos % (Auto) Baso % (Auto) Lymph # (Auto) Wilkes # (Auto) Eos # (Auto) Baso # (Auto) Absolute Neuts (auto) APTT pCO2 pO2 HCO3 ABG pH ABG Total CO2 ABG O2 Saturation ABG O2 Content ABG Base Excess ABG Hemoglobin ABG Carboxyhemoglobin POC ABG HHb (Measured) ABG Methemoglobin ABG O2 Capacity Hgb O2 Saturation FiO2 Sodium 142 Potassium 3.8 Chloride 106 Carbon Dioxide 30 Anion Gap 10 BUN 15 Creatinine 1.0 Est GFR ( Amer) > 60 Est GFR (Non-Af Amer) > 60 Random Glucose 79 Calcium 8.8 Ionized Calcium Phosphorus 3.2 Magnesium 2.3 H Total Bilirubin 1.0 AST 184 H D ALT 110 H Alkaline Phosphatase 89 Total Protein 6.5 Albumin 3.5 Globulin 3.1 Albumin/Globulin Ratio 1.1 Procalcitonin HIV 1&2 Ag/Ab, 4th Gen Assessment & Plan - Assessment and Plan (Free Text) Assessment: This is a 48 year old male with no prior medical history who s/p V FIb, ACLS> intubation in the field. He 24 hours post hypothermia protocol. ECHO revealed severe cardiomyopathy. EEG showed moderate to severe diffuse slowing, no seizure activity. Weaning trials in progress. I was asked to provide palliative support to family members of this patient. RN reports multiple family members visited last evening. There is a sister, Kenna who is listed as next of kin on the chart. Attempts to reach her via phone were unsuccessful, VM left Plan: Goals of care and advance care planning Intubated; weaning trial in progress Aspiration pneumonia; Continue Vancomycin, Zosyn, Doxycycline Neurology following, waiting 72 hrs post hypothermia protocol to assess neurological function Continue Amiodarone DVT prophylaxis
[2018-07-11] MEDS: Heparin25000 units/250ml 1/2NS 25,000 UNITS/250 ML BAG IV SCH (14:29)
[2018-07-12] MEDS: Piperacillin/Tazobact 3.375 gm 100 ML IVPB SCH ×4 (01:30→18:06)
[2018-07-12 04:08] LABS: BASO # 0.01 K/mm3 (0.0-2.0); BASO % 0.1 % (0.0-3.0); EOS % 0.1 % (1.5-5.0); HEMOGLOBIN 12.3 g/dL (14.0-18.0); LYMPH # 1.7 (1.2-3.4); LYMPH % 12.8 % (22.0-35.0); MEAN CELL VOLUME 94.7 fl (80.0-105.0); MEAN CORPUSCULAR HEMOGLOBIN 31.3 pg (25.0-35.0); MEAN CORPUSCULAR HGB CONC 33.1 g/dl (31.0-37.0); MONO # 1.1 (0.1-0.6); MONO % 8.3 % (1.0-6.0); RBC 3.93 10^6/uL (3.5-6.1); RED CELL DISTRIBUTION WIDTH 12.6 % (11.5-14.5); WHITE BLOOD COUNT 13.3 10^3/uL (4.5-11.0)
[2018-07-12 05:10] LABS: ALB/GLOB RATIO 1.2 (1.1-1.8); ALBUMIN 3.4 g/dL (3.0-4.8); ALT/SGPT 84 U/L (7-56); AST/SGOT 125 U/L (17-59); BLOOD UREA NITROGEN 21 mg/dL (7-21); CALCIUM 8.8 mg/dL (8.4-10.5); GFR NON-AFRICAN AMERICAN > 60
[2018-07-12 06:31] LABS: ARTERIAL BLOOD GAS HCO3 24.2 mmol/L (21-28); ARTERIAL BLOOD GAS HEMOGLOBIN 11.9 g/dL (11.7-17.4); ARTERIAL BLOOD GAS O2 CAPACITY 16.3 mL/dl (16-24); ARTERIAL BLOOD GAS O2 CONTENT 16.3 ML/dl (15-23); ARTERIAL BLOOD GAS O2 SAT 99.7 % (95-98); ARTERIAL BLOOD GAS PCO2 31 mm/Hg (35-45); ARTERIAL BLOOD GAS TCO2 25.2 mmol.L (22-28)
--- NOTE | 2018-07-12 08:24 | MRI ---
Date of service: 07/11/2018 PROCEDURE: MRI BRAIN WITHOUT CONTRAST HISTORY: evaluate for possible anoxic brain injury COMPARISON: None available. TECHNIQUE: Multiplanar, multisequence MR images of the brain were obtained without intravenous contrast enhancement. FINDINGS: HEMORRHAGE: None DWI: No evidence of an acute or early subacute infarction. BRAIN PARENCHYMA: No mass effect or edema. No atrophy or chronic microvascular ischemic changes. VENTRICLES: Unremarkable. No hydrocephalus. CRANIUM: Unremarkable. ORBITS: Grossly unremarkable. PARANASAL SINUSES/MASTOIDS: Partial opacification of mastoid air cells and paranasal sinuses VASCULAR SYSTEM: Skull base flow voids intact. OTHER FINDINGS: None. IMPRESSION: No acute intracranial findings
[2018-07-12] MEDS ORDERED: Potassium Chloride 20 mEq/15 ml LIQ UD PO STA (10:17)
--- NOTE | 2018-07-12 10:39 | PN ---
DATE: 07/12/2018 SUBJECTIVE: The patient is unresponsive on the ventilator with FIO2 of 40%. No distress. The patient is status post V-fib of cardiac arrest. PHYSICAL EXAMINATION: VITAL SIGNS: Temperature is 99.3, pulse is 63, respirations are 18 and BP is 136/81. SKIN: Warm and dry. HEENT: Head is atraumatic, normocephalic. Eyes are reactive to light. Ears, nose, and throat seem to be within normal limits. NECK: Supple. No JVD. No thyroid enlargement, no lymph nodes. HEART: Has regular rate and rhythm. Normal S1, S2. LUNGS: Reveal rare rhonchi at the bases. ABDOMEN: Soft. Decreased bowel sounds. GENITALIA: Deferred. RECTAL: Deferred. MUSCULOSKELETAL: No joint deformities. EXTREMITIES: Reveal trace lower extremity edema. NEUROLOGIC: He is totally unresponsive on the ventilator. LABORATORY DATA: Reveal white count of 13.3, hemoglobin of 12.3, hematocrit 37.2 with platelets of 168,000. Arterial blood gas reveals a pH of 7.50, pCO2 of 31, pO2 of 113. Sodium is 144, potassium 3.6, chloride 109, CO2 of 30 with a BUN of 21, creatinine of 0.9 and a glucose of 60. Chest x-ray reveals no obvious infiltrates. This is a unofficial reading. IMPRESSION: This patient had ventricular fibrillation cardiac arrest requiring CPR. He has heart failure with an ejection fraction of 13% and at this time he is sedative medications and seems to be in a coma. PLAN: We will continue with ventilator support decrease the FIO2 down as tolerated. Continue to follow chest x-ray and arterial blood gas. The patient will continue with aggressive pulmonary toilet. He is on amiodarone as well as doxycycline. The patient is getting IV heparin, Pepcid. He is on propofol which has been tapered off and he is on Zosyn. As far as we will continue to treat aggressively along with the other consultants and the primary care doctor. Jerald Mortensen MD
--- NOTE | 2018-07-12 11:02 | RAD ---
Date of service: 07/12/2018 HISTORY: intubated COMPARISON: 07/11/2018 TECHNIQUE: 1 view obtained. FINDINGS: LUNGS: No active pulmonary disease. PLEURA: No significant pleural effusion identified, no pneumothorax apparent. CARDIOVASCULAR: No aortic atherosclerotic calcification present. Mild cardiomegaly no pulmonary vascular congestion. OSSEOUS STRUCTURES: No significant abnormalities. VISUALIZED UPPER ABDOMEN: Normal. OTHER FINDINGS: Endotracheal tube and nasogastric tube in satisfactory position IMPRESSION: No active disease.
--- NOTE | 2018-07-12 12:05 | CP.PCM.PN ---
<Jimmy Angel - Last Filed: 07/12/18 12:02> Subjective - Date & Time of Evaluation Date of Evaluation: 07/12/18 Time of Evaluation: 10:00 - Subjective Subjective: INTERNAL MEDICINE PROGRESS NOTE FOR DR. JAVIER Angel PGY1 Pt seen and examined at bedside in ICU. Overnight, nursing staff noted downward gaze of eyes. Pt taken for MRI last night. Pt currently intubated, off of sedation ROS unable to obtained d/t pts mental status Currently on : Heparin gtt tube feeds @30ml/hr Ventilator on PRVC: 450/20/40%/5 Objective - Vital Signs/Intake and Output Vital Signs (last 24 hours): Temp Pulse Resp BP Pulse Ox 99.5 F 58 L 20 145/72 99 07/12/18 09:00 07/12/18 10:05 07/12/18 07:54 07/12/18 10:05 07/12/18 09:00 Intake and Output: 07/12/18 07/12/18 06:59 18:59 Intake Total 642 Output Total 550 Balance 92 - Medications Medications: Current Medications Amiodarone HCl (Cordarone) 400 mg PO BID [facility] Last Admin: 07/12/18 10:05 Dose: 400 mg Artificial Tears (Puralube Opht Oint) 1 appl OU Q4H PRN PRN Reason: Dry eyes Artificial Tears (Refresh Opth Soln) 0.3 ml OU Q4H PRN PRN Reason: Dry eyes Last Admin: 07/09/18 10:37 Dose: 2 d Aspirin (Aspirin Chewable) 81 mg PO DAILY [facility] Last Admin: 07/12/18 10:05 Dose: 81 mg Famotidine (Pepcid) 20 mg IVP DAILY [facility] Last Admin: 07/12/18 10:05 Dose: 20 mg Propofol (Diprivan) 1,000 mg in 100 mls @ 2.245 mls/hr IV .Q24H PRN; Protocol PRN Reason: TITRATE PER MD ORDER Last Titration: 07/11/18 09:30 Dose: 0 mcg/kg/min, 0 mls/hr Heparin Sodium/Sodium Chloride (Heparin 79049 Units/250ml 1/2 Normal Saline) 25,000 units in 250 mls @ 8.981 mls/hr IV .Q24H [facility]; Protocol Last Titration: 07/11/18 19:00 Dose: 16 units/kg/hr, 11.975 mls/hr Doxycycline Hyclate 100 mg/ (Sodium Chloride) 100 mls @ 100 mls/hr IVPB Q12 [facility]; Protocol Last Admin: 07/12/18 10:06 Dose: 100 mls/hr Piperacillin Sod/Tazobactam Sod (Zosyn 3.375 In Ns 100ml) 100 mls @ 200 mls/hr IVPB Q6 [facility]; Protocol Stop: 07/17/18 00:01 Last Admin: 07/12/18 11:35 Dose: 200 mls/hr - Labs Labs: 07/12/18 04:00 07/12/18 04:00 PT 12.7 SECONDS (9.4-12.5) H 07/09/18 21:10 INR 1.14 07/09/18 21:10 APTT 50.0 Seconds (26.9-38.3) H 07/12/18 04:00 - Constitutional Appears: No Acute Distress, Other (intubated) - Head Exam Head Exam: NORMAL INSPECTION, NORMOCEPHALIC - Eye Exam Additional comments: downward gaze, pinpoint but reactive - ENT Exam ENT Exam: Mucous Membranes Dry - Neck Exam Neck Exam: Normal Inspection - Respiratory Exam Respiratory Exam: absent: Rhonchi, Wheezes - Cardiovascular Exam Cardiovascular Exam: REGULAR RHYTHM, +S1, +S2 - GI/Abdominal Exam GI & Abdominal Exam: Soft. absent: Tenderness - Extremities Exam Extremities Exam: absent: Calf Tenderness - Back Exam Back Exam: absent: CVA tenderness (L), CVA tenderness (R) - Neurological Exam Additional comments: sedated. withdraws to painful stimuli - Skin Skin Exam: Dry, Intact, Warm Assessment and Plan - Assessment and Plan (Free Text) Assessment: 48 year old male presented to the emergency department, with unknown past medical history brought in by ambulance after a witnessed cardiac arrest with ventricular fibrillation. s/p CPR for 25 minutes, 3x epinephrines, 2 narcans, 5 shocks and 3x Amiodarone in the field. Pt achieved ROSC and is taken off code freeze yesterday. Pt reintubated this AM 2/2 bruxism Plan: s/p Cardiac Arrest s/p ROSC - Currently intubated, off of sedation - s/p vfib in field, 5x cardioversion s/p ROSC. Approximate downtime 25minutes. s/p code freeze completed at 5:30 pm 07/09. - EKG shows NSR @ 68. L axis deviation, Initial trop .06, 9.05, 7.6. Cardio cons ulted, Dr. Guerrero, no plan for intervention at this time - Repeat head CT negative for acute findings - Case discussed with cardiology, continue heparin drip. - Continue amiodarone per cardio recs - Urine tox positive for opioids and cannibinoids - Hemoglobin A1C - 5.0 - lipid panel - Chol 184, LDL - 84, HDL - 85 - TSH/T4 - TSH = 6.37, T4 = wnl - continue close monitoring in ICU Severe cardiomyopathy w/ reduced EF - Echo reveals LVEF 13%. Likely 2/2 to cardiac arrest - Repeat CXR reveals no acute findings - repeat chest xray in AM - will continue to monitor closely Severe sepsis 2/2 VDRF - CXR reveals No acute abnormalities - continue docycycline/zosyn - f/u pancultures, s. pneumo Ag - continue VAP bundle: Daily sedation vacation, HOB 30-45 degrees, DVT/GI ppx, oral care/subglottic suctioning - ID following AMS 2/2 cardiac arrest. - currently withdrawing to painful stimuli, moving eyes - CT head negative for acute pathology. - Video EEG: Abnormal: Mod to severe diffuse slowing and disorganization of EEG - Possible anoxic injury - assess neuro status when off sedation and/or extubated - Neurology, consulted, Dr. Hackett follow recs - continue seizure precautions and neuro checks GI/DVT PPx: Pepcid/Hep Dispo: Palliative care consulted. Will attempt to establish goals of care from family/POA Case reviewed with attending physician, Dr. Javier Angel PGY1 <Brayden Garcia - Last Filed: 07/12/18 14:39> Objective - Vital Signs/Intake and Output Vital Signs (last 24 hours): Temp Pulse Resp BP Pulse Ox 99.5 F 57 L 20 146/86 100 07/12/18 11:00 07/12/18 13:50 07/12/18 07:54 07/12/18 13:00 07/12/18 13:50 Intake and Output: 07/12/18 07/12/18 06:59 18:59 Intake Total 642 Output Total 550 Balance 92 - Medications Medications: Current Medications Amiodarone HCl (Cordarone) 400 mg PO BID [facility] Last Admin: 07/12/18 10:05 Dose: 400 mg Artificial Tears (Puralube Opht Oint) 1 appl OU Q4H PRN PRN Reason: Dry eyes Artificial Tears (Refresh Opth Soln) 0.3 ml OU Q4H PRN PRN Reason: Dry eyes Last Admin: 07/09/18 10:37 Dose: 2 d Aspirin (Aspirin Chewable) 81 mg PO DAILY [facility] Last Admin: 07/12/18 10:05 Dose: 81 mg Famotidine (Pepcid) 20 mg IVP DAILY [facility] Last Admin: 07/12/18 10:05 Dose: 20 mg Propofol (Diprivan) 1,000 mg in 100 mls @ 2.245 mls/hr IV .Q24H PRN; Protocol PRN Reason: TITRATE PER MD ORDER Last Titration: 07/11/18 09:30 Dose: 0 mcg/kg/min, 0 mls/hr Heparin Sodium/Sodium Chloride (Heparin 52363 Units/250ml 1/2 Normal Saline) 25,000 units in 250 mls @ 8.981 mls/hr IV .Q24H [facility]; Protocol Last Titration: 07/11/18 19:00 Dose: 16 units/kg/hr, 11.975 mls/hr Doxycycline Hyclate 100 mg/ (Sodium Chloride) 100 mls @ 100 mls/hr IVPB Q12 [facility]; Protocol Last Admin: 07/12/18 10:06 Dose: 100 mls/hr Piperacillin Sod/Tazobactam Sod (Zosyn 3.375 In Ns 100ml) 100 mls @ 200 mls/hr IVPB Q6 [facility]; Protocol Stop: 07/17/18 00:01 Last Admin: 07/12/18 11:35 Dose: 200 mls/hr - Labs Labs: 07/12/18 04:00 07/12/18 04:00 PT 12.7 SECONDS (9.4-12.5) H 07/09/18 21:10 INR 1.14 07/09/18 21:10 APTT 50.0 Seconds (26.9-38.3) H 07/12/18 04:00 Attending/Attestation - Attestation I have personally seen and examined this patient.: Yes I have fully participated in the care of the patient.: Yes I have reviewed all pertinent clinical information, including history, physical exam and plan: Yes Notes (Text): 07/12/18 14:34 Attending note; Patient seen and examined with resident in ICU. Patient is currently intubated. Off Sedation since last night. Not responding to stimulus. Moves extremities occasionally. Stiffening of the both upper and lower extremities noted. No purposeful movement Patient is a 48 year old male presented to the emergency department, with unknown past medical history brought in by ambulance after a witnessed cardiac arrest with ventricular fibrillation. 1. Status Post cardiac arrest; currently intubated and off sedation. Patient is still not following commands. status post hypothermia protocol. Patient had episodes of V. fib and cardioverted in the field.Got epinephrine, narcan, amiodarone, and defibrillation in the field. Approximate down time is [address] is negative for acute findings. MRI of the head shows no acute findings. 3. Severe cardiomyopathy. EchoCardiogram showed ejection fraction of 13%. 4. Elevated troponin; non-ST elevation TX versus post CPR. Trending down. Continue aspirin and heparin drip. 5. Cardiac arrest / possible anoxic encephalopathy ;neurology evaluation appreciated. Repeat CT is negative. MRI is negative for acute findings. video EEG showed moderate to severe diffuse slowing. No seizure-like activity Or status epilepticus noted. Will follow up with neurology closely. Reevaluate neurological status once extubated. 3. Status post intubation; weaning parameters as per ICU. 4. Urine drug screen is positive for opiates and cannabis. 5. leukocytosis; mostly secondary to aspiration pneumonia. Improving. blood an d urine cultures negative so far. ID evaluation appreciated. Currently on Zosyn and doxycycline. 6. DVT/GI prophylaxis. Monitor patient closely in ICU. Palliative care evaluation appreciated.
--- NOTE | 2018-07-12 12:13 | CP.PCM.PN ---
Subjective - Date & Time of Evaluation Date of Evaluation: 07/12/18 Time of Evaluation: 09:05 - Subjective Subjective: Patient continues to be on the ventilator, arousable but communication is still an issue. No fevers. Objective - Vital Signs/Intake and Output Vital Signs (last 24 hours): Temp Pulse Resp BP Pulse Ox 100.2 F H 69 33 H 126/85 97 07/10/18 22:40 07/11/18 09:52 07/10/18 07:39 07/11/18 09:52 07/10/18 22:40 Intake and Output: 07/11/18 07/11/18 06:59 18:59 Intake Total 100 120 Balance 100 120 - Medications Medications: Current Medications Amiodarone HCl (Cordarone) 400 mg PO BID [facility] Last Admin: 07/11/18 09:52 Dose: 400 mg Artificial Tears (Puralube Opht Oint) 1 appl OU Q4H PRN PRN Reason: Dry eyes Artificial Tears (Refresh Opth Soln) 0.3 ml OU Q4H PRN PRN Reason: Dry eyes Last Admin: 07/09/18 10:37 Dose: 2 d Aspirin (Aspirin Chewable) 81 mg PO DAILY [facility] Last Admin: 07/11/18 09:51 Dose: 81 mg Famotidine (Pepcid) 20 mg IVP DAILY [facility] Last Admin: 07/11/18 09:52 Dose: 20 mg Propofol (Diprivan) 1,000 mg in 100 mls @ 2.245 mls/hr IV .Q24H PRN; Protocol PRN Reason: TITRATE PER MD ORDER Last Titration: 07/11/18 09:30 Dose: 0 mcg/kg/min, 0 mls/hr Heparin Sodium/Sodium Chloride (Heparin 65275 Units/250ml 1/2 Normal Saline) 25,000 units in 250 mls @ 8.981 mls/hr IV .Q24H [facility]; Protocol Last Titration: 07/10/18 15:48 Dose: 12 units/kg/hr, 8.981 mls/hr Doxycycline Hyclate 100 mg/ (Sodium Chloride) 100 mls @ 100 mls/hr IVPB Q12 [facility]; Protocol Last Admin: 07/11/18 10:00 Dose: 100 mls/hr Piperacillin Sod/Tazobactam Sod (Zosyn 3.375 In Ns 100ml) 100 mls @ 200 mls/hr IVPB Q6 [facility]; Protocol Stop: 07/17/18 00:01 Last Admin: 07/11/18 05:53 Dose: 200 mls/hr - Labs Labs: 07/11/18 04:10 07/11/18 05:10 PT 12.7 SECONDS (9.4-12.5) H 07/09/18 21:10 INR 1.14 07/09/18 21:10 APTT 39.5 Seconds (26.9-38.3) H 07/11/18 04:10 - Constitutional Appears: Chronically Ill, Other (intubated) - ENT Exam Additional comments: ET tube in place - Respiratory Exam Respiratory Exam: Decreased Breath Sounds - Cardiovascular Exam Cardiovascular Exam: +S1, +S2 - GI/Abdominal Exam GI & Abdominal Exam: Soft. absent: Tenderness Assessment and Plan - Assessment and Plan (Free Text) Plan: Assessment Systemic inflammatory response syndrome after cardiac arrest probably from cardiac arrhythmia, consider sepsis with VDRF due to aspiration pneumonia Plan will d/c Vancomycin since MRSA screen is negative, continue Zosyn and Doxycycline day 4 pending sputum cx; blood cx and urine Legionella Ag is negati ve - target 4-7 days of therapy reviewed CT chest and CXR - follow up CXR results done today monitor clinically discussed with uncle at bedside
--- NOTE | 2018-07-12 15:38 | PN ---
DATE: 07/12/[address] Kelby Guerrero, REASON FOR CONSULTATION AND FOLLOWUP: Cardiomyopathy, non-ST segment myocardial infarction, respiratory failure intubated. SUBJECTIVE: The patient remains intubated, being fed through the NG tube, IV heparin. OBJECTIVE: GENERAL: Not in apparent distress. VITAL SIGNS: Temperature afebrile. Heart rate 58 and blood pressure 145/72. HEENT: PERRLA. Extraocular muscles intact. NECK: Supple. No carotid bruits or thyromegaly. CHEST: Clear to auscultation. HEART: S1 and S2, regular. ABDOMEN: Soft. EXTREMITIES: Clubbing and cyanosis negative. LABORATORY DATA: Blood workup as follows, WBC 13, hemoglobin 12.3, hematocrit 37.2 and platelet count 168. Chemistry shows sodium 140, potassium 3.6, chloride 109, carbon dioxide 30, anion gap of 9, BUN 21, creatinine 0.9 and total bilirubin 1.7. IMPRESSION: A 48-year-old male brought to the emergency room with no significant past medical history, found to be witnessed cardiac arrest and atrial fibrillation, non-ST segment myocardial infarction versus post cardiopulmonary resuscitation. The patient still remains intubated, leukocytosis, dilated cardiomyopathy, recent echo dated 07/09/2018 shows severely impaired left ventricular function, mild to moderate mitral regurgitation, trace aortic regurgitation, respiratory failure, rule out anoxic encephalopathy, ventricular fibrillation arrest as mentioned. RECOMMENDATION: Continue amiodarone. Hemodynamically stable. Waiting for the EEG result, rule out anoxic encephalopathy. Continue NG feeding. Continue aspirin. Continue heparin. We will transfer care on Saturday to Dr. Kelby Guerrero. We will keep KCl elixir 40 because of the low potassium. Pradeep Khan MD
[2018-07-13] MEDS: Piperacillin/Tazobact 3.375 gm 100 ML IVPB SCH ×5 (00:35→23:45)
[2018-07-13 05:36] LABS: ARTERIAL BLOOD GAS HCO3 27.1 mmol/L (21-28); ARTERIAL BLOOD GAS HEMOGLOBIN 12.6 g/dL (11.7-17.4); ARTERIAL BLOOD GAS O2 CAPACITY 17.5 mL/dl (16-24); ARTERIAL BLOOD GAS O2 CONTENT 17.5 ML/dl (15-23); ARTERIAL BLOOD GAS O2 SAT 100.1 % (95-98); ARTERIAL BLOOD GAS PCO2 34 mm/Hg (35-45); ARTERIAL BLOOD GAS PH 7.51 (7.35-7.45); ARTERIAL BLOOD GAS TCO2 28.1 mmol.L (22-28)
[2018-07-13 06:07] LABS: BASO # 0.01 K/mm3 (0.0-2.0); BASO % 0.1 % (0.0-3.0); EOS % 0.1 % (1.5-5.0); HEMOGLOBIN 11.5 g/dL (14.0-18.0); LYMPH # 2.1 (1.2-3.4); MEAN CORPUSCULAR HEMOGLOBIN 30.8 pg (25.0-35.0); MEAN CORPUSCULAR HGB CONC 32.1 g/dl (31.0-37.0); MEAN PLATELET VOLUME 10.4 fl (7.0-11.0); MONO # 1.1 (0.1-0.6); MONO % 10.5 % (1.0-6.0); RBC 3.73 10^6/uL (3.5-6.1); RED CELL DISTRIBUTION WIDTH 12.7 % (11.5-14.5); WHITE BLOOD COUNT 10.9 10^3/uL (4.5-11.0)
[2018-07-13 06:27] LABS: BLOOD UREA NITROGEN 23 mg/dL (7-21); GFR NON-AFRICAN AMERICAN > 60
[2018-07-13 06:28] LABS: ALB/GLOB RATIO 1.2 (1.1-1.8); ALBUMIN 3.5 g/dL (3.0-4.8); ALT/SGPT 73 U/L (7-56); AST/SGOT 91 U/L (17-59); CALCIUM 8.9 mg/dL (8.4-10.5)
[2018-07-13] MEDS ORDERED: Potassium Chloride 20 mEq ER Tab PO ONE ×2 (06:57→15:00)
[2018-07-13] MEDS ORDERED: Potassium Chloride 40 mEq/30 ml LIQ UD PO ONE ×2 (08:41→15:00)
[2018-07-13] MEDS: Heparin25000 units/250ml 1/2NS 25,000 UNITS/250 ML BAG IV SCH (08:44)
--- NOTE | 2018-07-13 09:32 | PN ---
DATE: 07/13/2018 SUBJECTIVE: The patient is unresponsive on the ventilator with FIO2 of 40%. The patient is status post V-fib cardiac arrest. He continues to be on IV heparin, but is on no sedation. The patient is getting TEN at a rate of 40 mL/hour and tolerating well. PHYSICAL EXAMINATION: VITAL SIGNS: His temperature is 99.7, his pulse is 49, respirations are 20. O2 saturation is 100% and BP is 144/87. HEENT: Head is atraumatic, normocephalic. Eyes reactive to light. Ears, nose and throat seem to be within normal limits. NECK: Supple. No JVD. No thyroid enlargement. No lymph nodes. HEART: Has regular rate and rhythm. Normal S1, S2, but bradycardic. LUNGS: Reveal mild rhonchi bilaterally. ABDOMEN: Soft. Decreased bowel sounds. GENITALIA: Deferred. RECTAL: Deferred. MUSCULOSKELETAL: No joint deformities. EXTREMITIES: Reveal trace lower extremity edema. NEUROLOGIC: The patient is responsive to painful stimuli and is on the ventilator for respiratory support. LABORATORY DATA: His white count is 10.9, hemoglobin is 11.5, hematocrit is 35.8 with platelets of 166,000. Arterial blood gas reveals a pH of 7.51, a pCO2 of 34, pO2 of 170 and his sodium is 146, potassium 3.5, chloride 110, CO2 of 31 with a BUN of 23, creatinine of 1.0 and a glucose of 98. IMPRESSION: This patient has been in ventricular fibrillation cardiac arrest requiring CPR. He has heart failure with an ejection fraction of 13% and at this time he is on no sedative medications and is improving with his mental status. PLAN: We will continue with ventilator support and decrease FIO2 as tolerated. We will follow his chest x-ray and arterial blood gas and aggressive pulmonary toilet. He is taking amiodarone as well as doxycycline, IV heparin, Pepcid, propofol, and Zosyn. We will continue to treat aggressively along with the other consultants and the primary care doctor. Jerald Mortensen MD
--- NOTE | 2018-07-13 10:27 | CP.PCM.PN ---
<Jimmy Angel - Last Filed: 07/13/18 10:29> Subjective - Date & Time of Evaluation Date of Evaluation: 07/13/18 Time of Evaluation: 08:00 - Subjective Subjective: INTERNAL MEDICINE PROGRESS NOTE FOR DR. JAVIER Angel PGY1 Pt seen and examined in ICU today. Pt is more alert today. He obeyed commands to give thumbs up with right hand. He is tracking with his eyes. He is moving extremities. ROS unable to be obtained Objective - Vital Signs/Intake and Output Vital Signs (last 24 hours): Temp Pulse Resp BP Pulse Ox 99.7 F H 50 L 20 147/88 100 07/13/18 05:40 07/13/18 10:07 07/12/18 07:54 07/13/18 10:07 07/13/18 05:40 - Medications Medications: Current Medications Amiodarone HCl (Cordarone) 400 mg PO DAILY [facility] Last Admin: 07/13/18 10:07 Dose: 400 mg Artificial Tears (Puralube Opht Oint) 1 appl OU Q4H PRN PRN Reason: Dry eyes Artificial Tears (Refresh Opth Soln) 0.3 ml OU Q4H PRN PRN Reason: Dry eyes Last Admin: 07/09/18 10:37 Dose: 2 d Aspirin (Aspirin Chewable) 81 mg PO DAILY [facility] Last Admin: 07/13/18 10:09 Dose: 81 mg Famotidine (Pepcid) 20 mg IVP DAILY [facility] Last Admin: 07/13/18 10:09 Dose: 20 mg Heparin Sodium/Sodium Chloride (Heparin 44090 Units/250ml 1/2 Normal Saline) 25,000 units in 250 mls @ 8.981 mls/hr IV .Q24H [facility]; Protocol Last Admin: 07/13/18 08:44 Dose: 16 units/kg/hr, 11.975 mls/hr Doxycycline Hyclate 100 mg/ (Sodium Chloride) 100 mls @ 100 mls/hr IVPB Q12 [facility]; Protocol Last Admin: 07/13/18 10:05 Dose: 100 mls/hr Piperacillin Sod/Tazobactam Sod (Zosyn 3.375 In Ns 100ml) 100 mls @ 200 mls/hr IVPB Q6 [facility]; Protocol Stop: 07/17/18 00:01 Last Admin: 07/13/18 06:36 Dose: 200 mls/hr - Labs Labs: 07/13/18 05:00 07/13/18 05:00 PT 12.7 SECONDS (9.4-12.5) H 07/09/18 21:10 INR 1.14 07/09/18 21:10 APTT 50.0 Seconds (26.9-38.3) H 07/12/18 04:00 - Constitutional Appears: Well, Non-toxic, No Acute Distress - Eye Exam Eye Exam: EOMI, PERRL - ENT Exam ENT Exam: Mucous Membranes Dry - Neck Exam Neck Exam: Normal Inspection - Respiratory Exam Respiratory Exam: Clear to Ausculation Bilateral, NORMAL BREATHING PATTERN - Cardiovascular Exam Cardiovascular Exam: REGULAR RHYTHM, +S1, +S2 - GI/Abdominal Exam GI & Abdominal Exam: Soft. absent: Tenderness - Extremities Exam Extremities Exam: Normal Inspection - Neurological Exam Neurological Exam: Alert, Awake - Skin Skin Exam: Dry, Intact, Warm Assessment and Plan - Assessment and Plan (Free Text) Assessment: 48 year old male presented to the emergency department, with unknown past medical history brought in by ambulance after a witnessed cardiac arrest with ventricular fibrillation. s/p CPR for 25 minutes, 3x epinephrines, 2 narcans, 5 shocks and 3x Amiodarone in the field. Pt achieved ROSC and is taken off code freeze yesterday. Pt reintubated this AM 2/2 bruxism Plan: s/p Cardiac Arrest s/p ROSC - Currently intubated, off of sedation - s/p vfib in field, 5x cardioversion s/p ROSC. Approximate downtime 25minutes. s/p code freeze completed at 5:30 pm 07/09. - EKG shows NSR @ 68. L axis deviation, Initial trop .06, 9.05, 7.6. Cardio consulted, Dr. Guerrero, no plan for intervention at this time - Repeat head CT negative for acute findings - Case discussed with cardiology, continue heparin drip. - Continue amiodarone per cardio recs - Urine tox positive for opioids and cannibinoids - Hemoglobin A1C - 5.0 - lipid panel - Chol 184, LDL - 84, HDL - 85 - TSH/T4 - TSH = 6.37, T4 = wnl - continue close monitoring in ICU Severe cardiomyopathy w/ reduced EF - Echo reveals LVEF 13%. Likely 2/2 to cardiac arrest - Repeat CXR reveals no acute findings - repeat chest xray in AM - will continue to monitor closely Severe sepsis 2/2 VDRF - CXR reveals No acute abnormalities - continue docycycline/zosyn - f/u pancultures, s. pneumo Ag - continue VAP bundle: Daily sedation vacation, HOB 30-45 degrees, DVT/GI ppx, oral care/subglottic suctioning - ID following AMS 2/2 cardiac arrest. - currently tracking with eyes, more awake. Obeyed command with R hand - CT head negative for acute pathology. - Video EEG: Abnormal: Mod to severe diffuse slowing and disorganization of EEG - Possible anoxic injury - assess neuro status when off sedation and/or extubated - Neurology, consulted, Dr. Hackett follow recs - continue seizure precautions and neuro checks GI/DVT PPx: Pepcid/Hep Dispo: Palliative care consulted. Will attempt to establish goals of care from family/POA Case reviewed with attending physician, Dr. Javier Angel PGY1 <Brayden Garcia - Last Filed: 07/13/18 11:42> Objective - Vital Signs/Intake and Output Vital Signs (last 24 hours): Temp Pulse Resp BP Pulse Ox 99.3 F 49 L 20 151/101 H 98 07/13/18 11:00 07/13/18 11:00 07/12/18 07:54 07/13/18 11:00 07/13/18 11:00 - Medications Medications: Current Medications Amiodarone HCl (Cordarone) 200 mg PO DAILY [facility] Artificial Tears (Puralube Opht Oint) 1 appl OU Q4H PRN PRN Reason: Dry eyes Artificial Tears (Refresh Opth Soln) 0.3 ml OU Q4H PRN PRN Reason: Dry eyes Last Admin: 07/09/18 10:37 Dose: 2 d Aspirin (Aspirin Chewable) 81 mg PO DAILY [facility] Last Admin: 07/13/18 10:09 Dose: 81 mg Enoxaparin Sodium (Lovenox) 40 mg SC DAILY [facility]; Protocol Enoxaparin Sodium (Lovenox) 40 mg SC ONCE ONE; Protocol Stop: 07/13/18 13:01 Famotidine (Pepcid) 20 mg IVP DAILY [facility] Last Admin: 07/13/18 10:09 Dose: 20 mg Doxycycline Hyclate 100 mg/ (Sodium Chloride) 100 mls @ 100 mls/hr IVPB Q12 [facility]; Protocol Last Admin: 07/13/18 10:05 Dose: 100 mls/hr Piperacillin Sod/Tazobactam Sod (Zosyn 3.375 In Ns 100ml) 100 mls @ 200 mls/hr IVPB Q6 [facility]; Protocol Stop: 07/17/18 00:01 Last Admin: 07/13/18 06:36 Dose: 200 mls/hr Potassium Chloride (K-Dur 20 Meq Er Tab) 40 meq PO ONCE ONE Stop: 07/13/18 15:01 - Labs Labs: 07/13/18 05:00 07/13/18 05:00 PT 12.7 SECONDS (9.4-12.5) H 07/09/18 21:10 INR 1.14 07/09/18 21:10 APTT 50.0 Seconds (26.9-38.3) H 07/12/18 04:00 Attending/Attestation - Attestation I have personally seen and examined this patient.: Yes I have fully participated in the care of the patient.: Yes I have reviewed all pertinent clinical information, including history, physical exam and plan: Yes Notes (Text): Attending note; Patient seen and examined with resident in ICU. Patient is currently intubated. Off Sedation. Patient's eyes open. Moving head from [id number]. Sometimes follow commands. able to move extremities upon request. some improvement and neurological status noted. Patient is a 48 year old male presented to the emergency department, with unknown past medical history brought in by ambulance after a witnessed cardiac arrest with ventricular fibrillation. 1. Status Post cardiac arrest; currently intubated and off sedation status post hypothermia protocol. Patient had episodes of V. fib and cardioverted in the field.Got epinephrine, narcan, amiodarone, and defibrillation in the field. Approximate down time is [address] is negative for acute findings. MRI of the head shows no acute findings. Slowly improving neurological status. Follows some commands. Monitor closely with neurology. 3. Severe cardiomyopathy. EchoCardiogram showed ejection fraction of 13%. 4. Elevated troponin; non-ST elevation MO versus post CPR. Trending down. Continue aspirin and heparin drip. 5. Cardiac arrest / possible anoxic encephalopathy ;neurology evaluation apprec iated. Repeat CT is negative. MRI is negative for acute findings. video EEG showed moderate to severe diffuse slowing. No seizure-like activity Or status epilepticus noted. Will follow up with neurology closely. Reevaluate neurological status once extubated. 3. Status post intubation; weaning parameters as per ICU. 4. Urine drug screen is positive for opiates and cannabis. 5. leukocytosis; resolved. mostly secondary to aspiration pneumonia. Improving. blood and urine cultures negative so far. ID evaluation appreciated. Currently on Zosyn and doxycycline. 6. DVT/GI prophylaxis. Monitor patient closely in ICU.
--- NOTE | 2018-07-13 10:35 | RAD ---
Date of service: 07/13/2018 HISTORY: Intubated COMPARISON: 07/12/2018 TECHNIQUE: 1 view obtained. FINDINGS: LUNGS: No active pulmonary disease. PLEURA: No significant pleural effusion identified, no pneumothorax apparent. CARDIOVASCULAR: No aortic atherosclerotic calcification present. Mild cardiomegaly. No pulmonary vascular congestion. OSSEOUS STRUCTURES: No significant abnormalities. VISUALIZED UPPER ABDOMEN: Normal. OTHER FINDINGS: Endotracheal tube and nasogastric tube in satisfactory position IMPRESSION: No active disease.
[2018-07-13] MEDS ORDERED: Enoxaparin 40 mg Syringe SC ONE (13:00)
--- NOTE | 2018-07-13 16:46 | PN ---
DATE: 07/13/[address] Kelby Guerrero REASON FOR CONSULTATION: Cardiomyopathy, non-ST segment myocardial infarction, respiratory failure, intubated. SUBJECTIVE: The patient remains intubated, being fed through the NG tube, on IV heparin and p.o. amiodarone, currently 400 p.o. b.i.d. OBJECTIVE: VITAL SIGNS: The patient is bradycardic, heart rate 49, blood pressure 147/88. HEENT: PERRLA. Extraocular muscles intact. NECK: Supple. No carotid bruits or thyromegaly. CHEST: Clear to auscultation. HEART: S1, S2. Regular. ABDOMEN: Soft. EXTREMITIES: Clubbing, cyanosis negative. LABORATORY DATA: Blood workup as follows: WBC 8.9, hemoglobin 11.9, hematocrit 35.8, platelet count 166. Chemistry shows sodium 146, potassium 3.5, chloride 110, carbon dioxide 31, anion gap of 23, BUN 1, creatinine 1. Total bilirubin 1.4, AST 91, ALT 31. IMPRESSION: A 48-year-old male brought to the emergency room without any significant past medical history, after having a witnessed cardiac arrest and ventricular fibrillation, non-ST segment myocardial infarction, status post cardiopulmonary resuscitation. The patient still remains intubated, leukocytosis, dilated cardiomyopathy. Last echo dated 07/09/2018 shows severely impaired left ventricular function, mild to moderate mitral regurgitation, trace aortic regurgitation, respiratory failure, rule out anoxic encephalopathy. The patient is now bradycardic on oral amiodarone 400 twice a day. RECOMMENDATION: We will decrease amiodarone to 200 mg from tomorrow, 400 mg the patient will hold it and now 200 mg daily. Continue heparin. We will change to Lovenox. Continue antibiotics for leukocytosis. Overall, the patient's condition is critical. residential prognosis is guarded. Follow up with neurologist. Followup x-ray. Continue broad-spectrum antibiotics. On admission, hemoglobin was 0.6, later on 9.5 with peak 7.60. The patient is on heparin for five days, now we will change to Lovenox and we will follow with you. We will transfer care tomorrow to Dr. Guerrero. Reassess neurologically. If the patient turns up anoxic encephalopathy and prolonged intubation, anticipated consider percutaneous endoscopic gastrostomy placement. Repeat the blood workup in the morning. Aggressively supplement potassium, 40 mEq was given at 8. We will give another 40 at [address] Garcia for providing us the opportunity in taking care of the patient Raman Denson. Pradeep Khan MD
--- NOTE | 2018-07-13 20:23 | PN ---
DATE: 07/13/2018 SUBJECTIVE: The patient was seen earlier this morning in room 128, bed 4. He is on a ventilator. He is not responsive. He had low grade fevers. PHYSICAL EXAMINATION: VITAL SIGNS: Temperature is 99.4, blood pressure is 150/90, respiratory rate of on the vent, with a heart rate of 50. HEENT: Unremarkable. NECK: Supple. LUNGS: Decreased breath sounds. HEART: Normal S1 and S2. ABDOMEN: Soft and nontender. LABORATORY DATA: Reveals the patient's white count is 10,900, hemoglobin of 11, and platelets of 166. Chemistries reveals BUN of 23, creatinine of 1.0. Urinalysis is noted. Toxicology is noted. MEDICATIONS: Review of orders reveals the patient to be on IV doxycycline and IV Zosyn. ASSESSMENT AND PLAN: A 48-year-old male who was seen earlier today in the Intensive Care Unit room 128, bed 4. He remains on a ventilator, intubated on a ventilator with systemic inflammatory response syndrome status post cardiac arrest. Patient has some cardiac arrhythmia with severe sepsis, ventilator-dependent respiratory failure, aspiration pneumonia on Zosyn and doxycycline day 5 where the urine for Legionella is negative. White count is normal. Patient is afebrile. Last procalcitonin on the was 4, it is 5.9. We will repeat a procalcitonin today and if it is normal, I will discontinue the antibiotics within the next 24 hours. Overall prognosis is poor. Day #5 of Zosyn and doxycycline. Throat cultures are negative and nares are negative. We will follow with you. We will follow the procalcitonin and make further decisions. Ever Miller MD
[2018-07-14] MEDS: Piperacillin/Tazobact 3.375 gm 100 ML IVPB SCH ×2 (05:17→12:42)
[2018-07-14 05:43] LABS: ARTERIAL BLOOD GAS HCO3 26.1 mmol/L (21-28); ARTERIAL BLOOD GAS HEMOGLOBIN 10.9 g/dL (11.7-17.4); ARTERIAL BLOOD GAS O2 CAPACITY 15.1 mL/dl (16-24); ARTERIAL BLOOD GAS O2 CONTENT 15.1 ML/dl (15-23); ARTERIAL BLOOD GAS O2 SAT 99.9 % (95-98); ARTERIAL BLOOD GAS PCO2 35 mm/Hg (35-45); ARTERIAL BLOOD GAS PH 7.48 (7.35-7.45); ARTERIAL BLOOD GAS TCO2 27.2 mmol.L (22-28)
--- NOTE | 2018-07-14 06:05 | RAD ---
Date of service: 07/14/2018 HISTORY: Intubated COMPARISON: Comparison is made to the previous study dated 07/13/2018 TECHNIQUE: 1 view obtained. FINDINGS: LUNGS: No evidence of new infiltrate or consolidation in the lungs. The ET tube is seen at appropriate position. PLEURA: No significant pleural effusion identified, no pneumothorax apparent. CARDIOVASCULAR: No aortic atherosclerotic calcification present. Normal cardiac size. No pulmonary vascular congestion. OSSEOUS STRUCTURES: No significant abnormalities. VISUALIZED UPPER ABDOMEN: The NG tube is seen extending to the left abdomen. OTHER FINDINGS: None. IMPRESSION: No significant interval changes noted since the prior exam.
[2018-07-14 06:56] LABS: BASO # 0.01 K/mm3 (0.0-2.0); BASO % 0.1 % (0.0-3.0); EOS % 0.5 % (1.5-5.0); HEMOGLOBIN 11.2 g/dL (14.0-18.0); LYMPH # 1.7 (1.2-3.4); LYMPH % 18.8 % (22.0-35.0); MEAN CELL VOLUME 95.7 fl (80.0-105.0); MEAN CORPUSCULAR HEMOGLOBIN 30.3 pg (25.0-35.0); MEAN CORPUSCULAR HGB CONC 31.6 g/dl (31.0-37.0); MEAN PLATELET VOLUME 10.6 fl (7.0-11.0); MONO % 10.9 % (1.0-6.0); RBC 3.7 10^6/uL (3.5-6.1); RED CELL DISTRIBUTION WIDTH 12.6 % (11.5-14.5); WHITE BLOOD COUNT 8.8 10^3/uL (4.5-11.0)
[2018-07-14 07:15] LABS: ALB/GLOB RATIO 1.2 (1.1-1.8); ALBUMIN 3.4 g/dL (3.0-4.8); ALT/SGPT 63 U/L (7-56); AST/SGOT 62 U/L (17-59); BLOOD UREA NITROGEN 21 mg/dL (7-21); GFR NON-AFRICAN AMERICAN > 60
[2018-07-14] MEDS ORDERED: Potassium Chloride 40 mEq/30 ml LIQ UD PO ONE (08:10)
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
[2018-07-14] MEDS: Enoxaparin 40 mg Syringe SC SCH (09:51)
--- NOTE | 2018-07-14 10:33 | CP.PCM.PN ---
<Jimmy Angel - Last Filed: 07/14/18 10:30> Subjective - Date & Time of Evaluation Date of Evaluation: 07/14/18 Time of Evaluation: 08:30 - Subjective Subjective: INTERNAL MEDICINE PROGRESS NOTE FOR DR. ABBI Angel PGY1 Pt seen and examined at bedside in ICU. No acute events overnight. Pt still intubated on vent, off of sedation. Upon interview, pts eyes are open, he obeys commands to give thumbs up and moves LE. He is moving his eyes spontaneously. ROS unable to obtained Objective - Vital Signs/Intake and Output Vital Signs (last 24 hours): Temp Pulse Resp BP Pulse Ox 99.5 F 47 L 20 147/90 99 07/13/18 16:00 07/14/18 09:50 07/14/18 07:57 07/14/18 09:50 07/14/18 09:00 - Medications Medications: Current Medications Amiodarone HCl (Cordarone) 200 mg PO DAILY [facility] Last Admin: 07/14/18 09:50 Dose: 200 mg Artificial Tears (Puralube Opht Oint) 1 appl OU Q4H PRN PRN Reason: Dry eyes Artificial Tears (Refresh Opth Soln) 0.3 ml OU Q4H PRN PRN Reason: Dry eyes Last Admin: 07/09/18 10:37 Dose: 2 d Aspirin (Aspirin Chewable) 81 mg PO DAILY [facility] Last Admin: 07/14/18 09:50 Dose: 81 mg Enoxaparin Sodium (Lovenox) 40 mg SC DAILY [facility]; Protocol Last Admin: 07/14/18 09:51 Dose: 40 mg Famotidine (Pepcid) 20 mg IVP DAILY [facility] Last Admin: 07/14/18 09:50 Dose: 20 mg Doxycycline Hyclate 100 mg/ (Sodium Chloride) 100 mls @ 100 mls/hr IVPB Q12 [facility] ; Protocol Last Admin: 07/14/18 09:51 Dose: 100 mls/hr Piperacillin Sod/Tazobactam Sod (Zosyn 3.375 In Ns 100ml) 100 mls @ 200 mls/hr IVPB Q6 [facility]; Protocol Stop: 07/17/18 00:01 Last Admin: 07/14/18 05:17 Dose: 200 mls/hr - Labs Labs: 07/14/18 05:30 07/14/18 05:30 PT 12.7 SECONDS (9.4-12.5) H 07/09/18 21:10 INR 1.14 07/09/18 21:10 APTT 50.0 Seconds (26.9-38.3) H 07/12/18 04:00 - Constitutional Appears: Non-toxic, No Acute Distress - Eye Exam Eye Exam: EOMI, PERRL - ENT Exam ENT Exam: Mucous Membranes Dry, ET tube in place - Neck Exam Neck Exam: Normal Inspection, - Respiratory Exam Respiratory Exam: Clear to Ausculation Bilaterally, no m/r/g - Cardiovascular Exam Cardiovascular Exam: REGULAR RHYTHM, +S1, +S2 - GI/Abdominal Exam GI & Abdominal Exam: Soft. absent: Tenderness - Extremities Exam Extremities Exam: Normal Inspection - Neurological Exam Neurological Exam: Alert, Awake - Skin Skin Exam: Dry, Intact, Warm Assessment and Plan - Assessment and Plan (Free Text) Assessment: 48 year old male presented to the emergency department, with unknown past medical history brought in by ambulance after a witnessed cardiac arrest with ventricular fibrillation. s/p CPR for 25 minutes, 3x epinephrines, 2 narcans, 5 shocks and 3x Amiodarone in the field. Pt achieved ROSC and is taken off code freeze w/ in 72 hours. Pt's neuro status being monitored in ICU. Mental status has showed improvement Plan: Cardiac Arrest in the setting of ventricular fibrillation s/p ROSC - s/p witnessed cardiac arrest with ventricular fibrillation. s/p CPR for 25 minutes, 3x epinephrine, 2x narcan, 5 shocks & 3x Amiodarone. Approximate downtime 25minutes. s/p code freeze completed at 5:30 pm 07/09 - Currently intubated, off of sedation, obeying verbal commands, no verbal response as he is intubated, opens eyes spontaneously - Continue oral amiodarone 200mg per cardio recs. Was previously on amiodarone drip. Pulse has been controlled with HR in 50-60s - Urine tox: (+) opioids and cannibinoids - Hemoglobin A1C - 5.0 - lipid panel - Chol 184, LDL - 84, HDL - 85 - TSH/T4 - TSH = 6.37, T4 = wnl NSTEMI - EKG showed NSR @ 68. L axis deviation, Initial troponins 07/08:0.06, 07/08:9.05, 07/09:7.6. - Cardio consulted, Dr. Guerrero, no plan for intervention at this time. - Heparin started x 5d. Hgb dropped from 13.5 to 11.2. Hep discontinued on 07/13 & switched to lovenox 40sc daily on 07/13 - Cardiology has been following, continue appreciating recs Severe cardiomyopathy w/ reduced EF in the setting of cardiac arrest - Echo 07/09: LVEF 13%. - CXR 07/14: No significant interval changes noted since the prior exam - Heparin discontinued. CXR, physical not revealing signs of fluid overload, diuretics not required at the moment Severe sepsis w/ VDRF 04/26 aspiration pneumonia - Remains afebrile, Normotensive. Leukocytosis resolved - MRSA Screen (-). Vancomycin discontinued - CXR 07/14: No acute abnormalities. Procalcitonin 07/10: 5.90, 07/08: <0.05 - continue docycycline (07/09)/zosyn(07/10) per ID recs - pancultures negative thus far. Ur L. pneumophilia ag 07/09: (-). f/u s. pneumo Ag - continue VAP bundle: Daily sedation vacation, HOB 30-45 degrees, DVT/GI ppx, oral care/subglottic suctioning - ID following AMS 2/2 cardiac arrest - r/o anoxic brain injury - currently tracking with eyes, more awake. Obeying commands with R hand. Mental status has improved - Pt requiring restraints 2/2 pulling - Maintain MAP 80-100 - Brain MRI (07/11): no acute intracranial findings - Head CT (07/10): "No acute abnormalities. No significant findinsg to account for clinical presentation. No significant interval change compared to prior e xamination. Head CT (07/08): Supobtimal diagnostic quality due to extensive beam hardening artifacts patient motion. Allowing for this, no acute intracranial abnormalities. - Video EEG 07/11: Moderate to severe non specific diffuse disturbance of cortical activity, in keeping with a diffuse chase matter dysfunction. The findings do not suggest a specific etiology - Neurology, consulted, Dr. Hackett follow recs - continue seizure precautions and neuro checks, HOB>30-45degrees, aspiration precautions - Currently on tube feeds via NG tube. Will anticipate PEG tube placement if pt requiring prolonged intubation. GI/DVT PPx: Pepcid/lovenox Dispo: Palliative care consulted. Will attempt to establish goals of care from family/POA - Further Care per ICU team Case reviewed with attending physician, Dr. Carmela Angel PGY1 <Carmela Walker R - Last Filed: 07/15/18 08:21> Objective - Vital Signs/Intake and Output Vital Signs (last 24 hours): Temp Pulse Resp BP Pulse Ox 99 F 60 22 144/82 100 07/15/18 07:37 07/15/18 07:37 07/15/18 06:57 07/15/18 07:00 07/15/18 07:00 Intake and Output: 07/15/18 07/15/18 06:59 18:59 Intake Total 302 Output Total 350 Balance -48 - Medications Medications: Current Medications Amiodarone HCl (Cordarone) 400 mg PO DAILY [facility] Artificial Tears (Puralube Opht Oint) 1 appl OU Q4H PRN PRN Reason: Dry eyes Artificial Tears (Refresh Opth Soln) 0.3 ml OU Q4H PRN PRN Reason: Dry eyes Last Admin: 07/09/18 10:37 Dose: 2 d Aspirin (Aspirin Chewable) 81 mg PO DAILY [facility] Last Admin: 07/14/18 09:50 Dose: 81 mg Enoxaparin Sodium (Lovenox) 40 mg SC DAILY [facility]; Protocol Last Admin: 07/14/18 09:51 Dose: 40 mg Famotidine (Pepcid) 20 mg IVP DAILY [facility] Last Admin: 07/14/18 09:50 Dose: 20 mg Dobutamine HCl/Dextrose (Dobutamine/Dextrose 5% 500mg/250ml) 500 mg in 250 mls @ 5.545 mls/hr IV .Q24H PRN; Protocol PRN Reason: TITRATE PER PROTOCOL Last Admin: 07/14/18 15:16 Dose: 2.5 mcg/kg/min, 5.545 mls/hr Potassium Chloride (Potassium Chloride 10 Meq/100 Ml) 10 meq in 100 mls @ 100 mls/hr IVPB Q2H [facility] Stop: 07/15/18 09:44 - Labs Labs: 07/15/18 05:40 07/15/18 05:40 PT 12.7 SECONDS (9.4-12.5) H 07/09/18 21:10 INR 1.14 07/09/18 21:10 APTT 50.0 Seconds (26.9-38.3) H 07/12/18 04:00 Attending/Attestation - Attestation I have personally seen and examined this patient.: Yes I have fully participated in the care of the patient.: Yes I have reviewed all pertinent clinical information, including history, physical exam and plan: Yes Notes (Text): Patient seen and examined by me with resident at approximately 8:30AM on 07/14/18. Case including HPI, physical exam, and assessment and plan discussed with resident. Agree with above with following additions/corrections. Patient is a 48 year old malei with unknown past medical history that presented to the emergency room s/p cardiac arrest and ventricular fibrillation. Patient opens eyes. Intubated. Not answering questions. Patient is able to slightly lift right thumb when asked and does wiggle toes when asked. Patient on soft restraints. Patient afebrile. Physical exam: General: Awake and alert lying in bed in no acute distress HEENT: Normocephalic, atraumatic. Extraocular muscles intact. Pupils equal and reactive, no scleral icterus. ET tube in place. NGT in place. Cardiovascular: Bradycardic S1 and S2. No murmurs, rubs, or gallops appreciated Pulmonary: Ventilator sounds appreciated. No rhonchi, rales, or wheezing ap preciated Gastrointestinal: Soft, nondistended. Nontender. Positive bowel sounds all 4 quadrants. No guarding. Musculoskeletal: Wiggles toes. Upper extremities in soft restraints. No edema appreciated. Central nervous system: Awake and alert. Able to follow some commands. Dermatologic: Skin warm and dry. Assessment and plan: Patient is a 48 year old malei with unknown past medical history that presented to the emergency room s/p cardiac arrest and ventricular fibrillation. 1. S/P V-fib arrest. S/P hypothermia protocol. NSTEMI. Dilated cardiomyopathy. Troponins were 0.06, then 9.05, then 7.60. 2D echo per third helper showed LVEF of 13%, left ventricle is normal size, normal left ventricular wall thickness, systolic function is severely impaired, significant regional wall motion abnor malities noted, mitral regurgitation is mild to moderate, trace aortic regurgitation. Cardiology recommendations appreciated. S/P heparin drip. Started on amiodarone. Continue ASA. 2. S/P severe sepsis secondary to aspiration pneumonia. ID recommendations appreciated. S/P treatment with Doxcycline and Zosyn. Procalcitonin was <0.05, then 5.90, and now 0.18. Blood and urine cultures with no growth. Patient afebrile. Leukocytosis resolved. CT chest/abdomen/pelvis per radiologist on 07/08/2018 showed findings in the lung may represent pulmonary edema or aspiration pneumonitis, moderate bilateral pleural effusions, no acute findings in the abdomen or pelvis; fluid filled distended stomach, fluid in the small bowel loops, and fluid filled mildly distended colon. 3. Vent dependent respiratory failure. Wean as tolerated. Vent settings as per ICU. 4. Possible anoxic encephalopathy. Neurology recommendations appreciated. Head CT 07/10/18 per radiologist showed no acute intracranial abnormalities. Brain MRI per radiologist showed no acute cranial findings. Continue neurochecks. Continue seizure precautions. Continue supportive care. EEG per neurologist showed moderate to severe nonspecific diffuse disturbance of cortical activity, in keeping with the diffuse chase matter dysfunction; findings do not suggest a specific etiology. Reevaluate status once extubated. 5. Transaminitis. Improving. Continue to monitor. 6. Drug abuse. Urine drug screen positive for opioids and cannabinoids. 7. GI/DVT prophylaxis. Pepcid/Lovenox. 8. Palliative care following
--- NOTE | 2018-07-14 12:18 | CP.PCM.PN ---
Subjective - Date & Time of Evaluation Date of Evaluation: 07/14/18 Time of Evaluation: 09:00 - Subjective Subjective: Alert, able to follow simple command. Objective - Vital Signs/Intake and Output Vital Signs (last 24 hours): Temp Pulse Resp BP Pulse Ox 98.3 F 52 L 20 141/84 98 07/14/18 11:00 07/14/18 11:00 07/14/18 07:57 07/14/18 11:00 07/14/18 11:00 - Medications Medications: Current Medications Amiodarone HCl (Cordarone) 200 mg PO DAILY [facility] Last Admin: 07/14/18 09:50 Dose: 200 mg Artificial Tears (Puralube Opht Oint) 1 appl OU Q4H PRN PRN Reason: Dry eyes Artificial Tears (Refresh Opth Soln) 0.3 ml OU Q4H PRN PRN Reason: Dry eyes Last Admin: 07/09/18 10:37 Dose: 2 d Aspirin (Aspirin Chewable) 81 mg PO DAILY [facility] Last Admin: 07/14/18 09:50 Dose: 81 mg Enoxaparin Sodium (Lovenox) 40 mg SC DAILY [facility]; Protocol Last Admin: 07/14/18 09:51 Dose: 40 mg Famotidine (Pepcid) 20 mg IVP DAILY [facility] Last Admin: 07/14/18 09:50 Dose: 20 mg Doxycycline Hyclate 100 mg/ (Sodium Chloride) 100 mls @ 100 mls/hr IVPB Q12 [facility]; Protocol Last Admin: 07/14/18 09:51 Dose: 100 mls/hr Piperacillin Sod/Tazobactam Sod (Zosyn 3.375 In Ns 100ml) 100 mls @ 200 mls/hr IVPB Q6 [facility]; Protocol Stop: 07/17/18 00:01 Last Admin: 07/14/18 05:17 Dose: 200 mls/hr - Labs Labs: 07/14/18 05:30 07/14/18 05:30 PT 12.7 SECONDS (9.4-12.5) H 07/09/18 21:10 INR 1.14 07/09/18 21:10 APTT 50.0 Seconds (26.9-38.3) H 07/12/18 04:00 - Constitutional Appears: No Acute Distress - Head Exam Head Exam: NORMOCEPHALIC - Eye Exam Eye Exam: Normal appearance, PERRL - ENT Exam ENT Exam: Mucous Membranes Moist - Respiratory Exam Respiratory Exam: Clear to Ausculation Bilateral, NORMAL BREATHING PATTERN - Cardiovascular Exam Cardiovascular Exam: REGULAR RHYTHM, +S1, +S2 - GI/Abdominal Exam GI & Abdominal Exam: Soft, Normal Bowel Sounds - Extremities Exam Additional comments: able to move all extremities - Neurological Exam Neurological Exam: Alert - Skin Skin Exam: Dry, Warm Assessment and Plan - Assessment and Plan (Free Text) Assessment: This is a 48 year old male with no prior medical history who s/p V FIb, ACLS> intubation in the field. He s/p post hypothermia protocol. ECHO revealed severe cardiomyopathy. EEG showed moderate to severe diffuse slowing, no seizure activity. Weaning trials in progress. The patient is alert,following command. Able to move extremities. Weaning trial in progress. Staff reports that family members are visiting in the evening and that sister Kenna calls daily for update. Encourage staff to get family contact information for goals of care discussions. Plan: Goals of care Currently intubated, off of sedation, obeying verbal commands.Weaning trial in progress Continue po Amiodarone, Lovenox daily, per cardiology recommendation. Pruitt cultures negative,ID recommendation to continue Docycycline and Zosyn Neurology following, consulted, continue seizure precautions and neuro checks, HOB>30-45degrees, aspiration precautions. Continue tube feeds via NG tube.
--- NOTE | 2018-07-14 12:58 | PN ---
DATE: 07/14/2018 SUBJECTIVE: The patient remains on a ventilator. OBJECTIVE: VITAL SIGNS: Blood pressure 141/84, heart rates in the 50s. NECK: Negative JVD. LUNGS: No rales noted. HEART: Reveals S1, S2. EXTREMITIES: Without edema. LABORATORY DATA: Hemoglobin is 11.2, BUN and creatinine unremarkable. Potassium is 3.5. IMPRESSION: 1. Status post ventricular fibrillation arrest. 2. Non-ST elevation myocardial infarction. 3. Dilated cardiomyopathy. 4. Respiratory failure. Given these findings, I would continue the amiodarone at a higher dose of 200 twice a day. The patient can be extubated. We will discuss cardiac catheterization with the patient once he is extubated. Kelby Guerrero MD
[2018-07-14] MEDS ORDERED: DOPamine 400mg/250ml D5W 0 MG/0 ML BAG IV ONE (14:57)
[2018-07-14] MEDS: DOBUTamine 500mg/250ml D5W 500 MG/250 ML BAG IV PRN (15:16)
--- NOTE | 2018-07-14 20:24 | PN ---
DATE: 07/14/2018 SUBJECTIVE: The patient is seen in room 128, bed 4. No fevers, no chills. PHYSICAL EXAMINATION VITAL SIGNS: Temperature is 98, blood pressure is 130/70, respiratory rate of 18, heart rate of 55. HEENT: Unremarkable. NECK: Supple. LUNGS: Have decreased breath sounds. HEART: Normal S1, S2. ABDOMEN: Soft, nontender. LABORATORY DATA: Reveals a white count of 8.8, hemoglobin of 11, platelets of 158. BUN of 21, creatinine of 0.8. Pro calcitonin 0.18. The urinalysis is noted. Toxicology is reviewed. Serology is reviewed. Microbiology reveals negative blood cultures. Chest x-ray; no evidence of new infiltrate or consolidation. An ET tube is seen in the appropriate position. CONSULTATIONS: Elaine Renae's note is reviewed. Dr. Kelby Guerrero's progress note is reviewed. ASSESSMENT AND PLAN: A 48-year-old male who was seen earlier today in the Intensive Care Unit 128, remains on a ventilator, intubated on a ventilator with systemic inflammatory response syndrome, cardiac arrest. Day #6 of doxycycline and Zosyn. The patient with severe sepsis, ventilatory dependent respiratory failure, cardiac arrest and aspiration pneumonia. A repeat pro calcitonin from today is 0.18. We will discontinue the antibiotics. Overall prognosis is poor. We will follow with you. Ever Miller MD
--- NOTE | 2018-07-14 21:38 | PN ---
DATE: 07/14/2018 SUBJECTIVE: The patient is seen and examined at bedside. He is comfortable. He appears to be responding to commands, however, still questionably. He is on pressure support 10/5 with FiO2 of 40%, however, failed and his rapid shallow breathing index has actually increased. He was put back on PRVC 450/20/500/40%. The patient was also started on dobutamine to optimize left ventricular systolic function, and enhance his chances for weaning from mechanical ventilation. PHYSICAL EXAMINATION: HEENT: Head and neck atraumatic. The patient is intubated. LUNGS: Clear to auscultation bilaterally. HEART: Regular rate and rhythm. S1 and S2 distant. ABDOMEN: Soft, nontender, nondistended. MUSCULOSKELETAL: No C/C/E. NEUROLOGIC: The patient appears to be able to move all extremities spontaneously. SKIN: Moist. PSYCHIATRIC: The patient appears to be able to follow commands. LABORATORY DATA: WBC 8.8, hemoglobin 11.2, platelet count 158. Sodium 145, potassium 3.5, chloride 111, carbon dioxide 27, BUN 21, creatinine 0.8 down from 1, glucose 98. AST 62, ALT 63, total bilirubin 1.2. The patient was found to be positive for opiates and positive for cannabinoids on the day of his admission to the hospital. Today's ABG, 7.48/35/146. MEDICATIONS: Amiodarone, aspirin, dobutamine, doxycycline, Lovenox, Pepcid, Zosyn. ASSESSMENT AND PLAN: This is a 48-year-old gentleman who presented to [facility] Intensive Care Unit after ventricular fibrillation arrest outside hospital and was treated with TTM. Presently, the patient has ventilator-dependent respiratory failure and failed pressure support trial as evidenced by increased rapid shallow breathing index upon placement on pressure support trial. The patient has severe left ventricular systolic dysfunction and was started on dobutamine. That was also agreed upon by cardiology service (Dr. Guerrero). The patient is on amiodarone for history of ventricular tachycardia, received during present event. He is on aspirin. As the patient is on dobutamine, we will hold beta blockers. Also, we will hold statins to avoid combined hepatotoxicity between statins and amiodarone. We will continue [id number] tidal volume ventilation with plateau pressure less than 25 cm of water, conservative fluid and oxygen management, daily sedation vacation and weaning trials. His acute kidney injury is substantially improved. We will try to maintain mean arterial pressure more than 65, avoid hypoglycemia and maintain euvolemia and avoid hyperchloremia. Presently, blood pressure 133/78, oxygen saturation 98% on 40% FiO2, end-tidal CO2 on the monitor 33, respiratory rate 23. The patient tolerates enteral nutrition well and currently on 15 mL per hour of enteral feeds. We will maintain blood glucose within 140-180 range according to NICE-SUGAR trial. Deep venous thrombosis and gastrointestinal prophylaxis. ccm time 40 min Hernando Carvajal MD MTDD
[2018-07-15 05:18] LABS: ARTERIAL BLOOD GAS HCO3 27.8 mmol/L (21-28); ARTERIAL BLOOD GAS HEMOGLOBIN 11.4 g/dL (11.7-17.4); ARTERIAL BLOOD GAS O2 CAPACITY 15.6 mL/dl (16-24); ARTERIAL BLOOD GAS O2 CONTENT 15.6 ML/dl (15-23); ARTERIAL BLOOD GAS O2 SAT 100.1 % (95-98); ARTERIAL BLOOD GAS PCO2 34 mm/Hg (35-45); ARTERIAL BLOOD GAS PH 7.52 (7.35-7.45); ARTERIAL BLOOD GAS TCO2 28.8 mmol.L (22-28)
[2018-07-15 06:06] LABS: BASO # 0.01 K/mm3 (0.0-2.0); BASO % 0.1 % (0.0-3.0); EOS % 0.5 % (1.5-5.0); HEMOGLOBIN 11.1 g/dL (14.0-18.0); LYMPH # 1.7 (1.2-3.4); LYMPH % 22.5 % (22.0-35.0); MEAN CELL VOLUME 94.6 fl (80.0-105.0); MEAN CORPUSCULAR HEMOGLOBIN 31.3 pg (25.0-35.0); MONO # 0.7 (0.1-0.6); MONO % 9.5 % (1.0-6.0); RBC 3.55 10^6/uL (3.5-6.1); RED CELL DISTRIBUTION WIDTH 12.3 % (11.5-14.5); WHITE BLOOD COUNT 7.6 10^3/uL (4.5-11.0)
[2018-07-15 07:06] LABS: ALB/GLOB RATIO 1.2 (1.1-1.8); ALBUMIN 3.6 g/dL (3.0-4.8); ALT/SGPT 60 U/L (7-56); AST/SGOT 60 U/L (17-59); BLOOD UREA NITROGEN 22 mg/dL (7-21); GFR NON-AFRICAN AMERICAN > 60
--- NOTE | 2018-07-15 07:51 | RAD ---
Date of service: 07/15/2018 HISTORY: Intubated COMPARISON: Portable chest 07/14/2018. TECHNIQUE: 1 view obtained. FINDINGS: LUNGS: Endotracheal and nasogastric tubes are not significantly changed in position. PLEURA: No significant pleural effusion identified, no pneumothorax apparent. CARDIOVASCULAR: No aortic atherosclerotic calcification present. Normal cardiac size. No pulmonary vascular congestion. OSSEOUS STRUCTURES: No significant abnormalities. VISUALIZED UPPER ABDOMEN: Normal. OTHER FINDINGS: None. IMPRESSION: No interval acute cardiopulmonary disease appreciable. Tubes unchanged in position.
--- NOTE | 2018-07-15 08:50 | CP.CCUPN ---
<Parrish Garibay - Last Filed: 07/15/18 11:54> CCU Subjective - Physician Review Subjective (Free Text): Parrish Garibay DO, PGY-1 MICU Progress Note for Dr. Carvajal Patient was seen and examined at bedside this AM. He was maintained on pressure support overnight and maintained HR > 50 on dobutamine drip. He is moving all extremities spontaneously, opens his eyes, and follows commands with improvement from yesterday. CCU Objective - Vital Signs / Intake & Output Vital Signs (Last 4 hours): Vital Signs Temp Pulse Resp BP Pulse Ox 07/15/18 07:37 99 F 60 07/15/18 07:00 60 144/82 100 07/15/18 06:57 22 100 07/15/18 06:00 56 L 145/83 100 07/15/18 05:32 61 21 100 07/15/18 05:31 56 L 19 100 07/15/18 05:30 63 19 100 07/15/18 05:29 64 20 100 07/15/18 05:28 57 L 20 100 07/15/18 05:27 63 19 100 07/15/18 05:26 59 L 20 100 07/15/18 05:25 66 20 100 07/15/18 05:24 61 20 100 07/15/18 05:23 58 L 20 100 07/15/18 05:22 60 20 100 07/15/18 05:21 58 L 20 100 07/15/18 05:20 59 L 20 100 07/15/18 05:19 62 21 100 07/15/18 05:18 56 L 21 100 07/15/18 05:17 55 L 20 100 07/15/18 05:16 59 L 20 100 07/15/18 05:15 61 20 100 07/15/18 05:14 61 20 100 07/15/18 05:13 63 20 100 07/15/18 05:12 60 20 100 07/15/18 05:11 59 L 20 100 07/15/18 05:10 61 20 100 07/15/18 05:09 59 L 21 100 07/15/18 05:08 61 20 100 07/15/18 05:07 60 20 100 07/15/18 05:06 66 20 100 07/15/18 05:05 57 L 20 100 07/15/18 05:04 60 20 100 07/15/18 05:03 58 L 20 100 07/15/18 05:02 56 L 20 100 07/15/18 05:01 56 L 19 100 07/15/18 05:00 145/73 07/15/18 04:59 55 L 20 100 07/15/18 04:58 66 12 100 07/15/18 04:54 50 L 20 100 Intake and Output (Last 8hrs): Intake & Output 07/14/18 07/15/18 07/15/18 22:59 06:59 14:59 Intake Total 610 302 Output Total 1020 350 Balance -410 -48 Weight 161 lb 6.4 oz Intake: IV 410 72 Right Antecubital 210 Right Forearm 200 72 Tube Feeding 150 180 Other 50 50 Output: Gastric Amount 0 0 Right Nares 0 0 Urine 820 300 Condom 820 300 Stool 50 Urine/Stool Mix 200 Other: # Bowel Movements 2 - Physical Exam Head: Positive for: Atraumatic, Normocephalic Pupils: Positive for: PERRL Extroacular Muscles: Positive for: EOMI Conjunctiva: Positive for: Normal Mouth: Positive for: Moist Mucous Membranes Nose (External): Positive for: Atraumatic Neck: Negative for: Lymphadenopathy, Bruit Respiratory/Chest: Positive for: Clear to Auscultation (on ventilator pressure support, breath sounds auscultated b/l), Good Air Exchange. Negative for: Accessory Muscle Use, Wheezes, Rales, Rhonchi Cardiovascular: Positive for: Normal S1, S2, Bradycardic. Negative for: Murmurs, Rub, Gallop Abdomen: Positive for: Normal Bowel Sounds, Other (responds to palpation of abdomen). Negative for: Distention, Guarding Genitourinary Male: Positive for: Normal External Genitalia, Circumcised Penis, Other (parr in place) Upper Extremity: Positive for: Capillary Refill < 2s. Negative for: Cyanosis, Edema, Erythema Lower Extremity: Positive for: Capillary Refill < 2 s. Negative for: Edema Neurological: Positive for: Other (GCS now 11, off sedation, responds to commands, does not verbalize) Skin: Positive for: Warm, Dry Psychiatric: Positive for: Other - Medications Active Medications: Active Medications Generic Name Dose Route Start Last Admin Trade Name Freq PRN Reason Stop Dose Admin Amiodarone HCl 400 mg 07/14/18 12:18 Cordarone PO DAILY RITA Artificial Tears 1 appl 07/08/18 18:58 Puralube Opht Oint OU Q4H PRN Dry eyes Artificial Tears 0.3 ml 07/09/18 09:09 07/09/18 10:37 Refresh Opth Soln OU 2 d Q4H PRN Administration Dry eyes Aspirin 81 mg 07/11/18 10:00 07/14/18 09:50 Aspirin Chewable PO 81 mg DAILY RITA Administration Enoxaparin Sodium 40 mg 07/14/18 10:00 07/14/18 09:51 Lovenox SC 40 mg DAILY RITA Administration Protocol Famotidine 20 mg 07/09/18 10:00 07/14/18 09:50 Pepcid IVP 20 mg DAILY RITA Administration Dobutamine HCl/Dextrose 500 mg in 250 mls @ 5.545 mls/hr 07/14/18 14:52 07/14/18 15:16 Dobutamine/Dextrose 5% 500mg/250ml IV 2.5 mcg/kg/min .Q24H PRN 5.545 mls/hr TITRATE PER PROTOCOL Administration Protocol 2.5 MCG/KG/MIN Potassium Chloride 10 meq in 100 mls @ 100 mls/hr 07/15/18 06:45 07/15/18 08:25 Potassium Chloride 10 Meq/100 Ml IVPB 07/15/18 09:44 100 mls/hr Q2H RITA Administration - Patient Studies Lab Studies: Microbiology Studies 07/09/18 15:20 Blood Culture - Final Blood NO GROWTH AFTER 5 DAYS Gram Stain - Final TEST NOT PERFORMED 07/11/18 13:30 Blood Culture - Preliminary Blood NO GROWTH AFTER 3 DAYS 07/11/18 13:00 Blood Culture - Preliminary Blood NO GROWTH AFTER 3 DAYS Lab Studies 07/15/18 07/15/18 07/15/18 Range/Units 05:40 05:40 05:00 WBC 7.6 (4.5-11.0) 10^3/uL RBC 3.55 (3.5-6.1) 10^6/uL Hgb 11.1 L (14.0-18.0) g/dL Hct 33.6 L (42.0-52.0) % MCV 94.6 (80.0-105.0) fl MCH 31.3 (25.0-35.0) pg MCHC 33.0 (31.0-37.0) g/dl RDW 12.3 (11.5-14.5) % Plt Count 169 (120.0-450.0) 10^3/uL MPV 10.0 (7.0-11.0) fl Neut % (Auto) 67.4 (50.0-68.0) % Lymph % (Auto) 22.5 (22.0-35.0) % [place] % (Auto) 9.5 H (1.0-6.0) % Eos % (Auto) 0.5 L (1.5-5.0) % Baso % (Auto) 0.1 (0.0-3.0) % Lymph # (Auto) 1.7 (1.2-3.4) [place] # (Auto) 0.7 H (0.1-0.6) Eos # (Auto) 0.0 (0.0-0.7) Baso # (Auto) 0.01 (0.0-2.0) K/mm3 Absolute Neuts (auto) 5.11 (1.4-6.5) pCO2 34 L (35-45) mm/Hg pO2 99.0 (80-100) mm/Hg HCO3 27.8 (21-28) mmol/L ABG pH 7.52 H (7.35-7.45) ABG Total CO2 28.8 H (22-28) mmol.L ABG O2 Saturation 100.1 H (95-98) % ABG O2 Content 15.6 (15-23) ML/dl ABG Base Excess 4.9 H (-2.0-3.0) mmol/L ABG Hemoglobin 11.4 L (11.7-17.4) g/dL ABG Carboxyhemoglobin 2.6 H (0.5-1.5) % POC ABG HHb (Measured) -0.1 L (0-5) % ABG Methemoglobin 1.2 (0.0-3.0) % ABG O2 Capacity 15.6 L (16-24) mL/dl Hgb O2 Saturation 96.2 (95.0-98.0) % FiO2 40.0 % Sodium 144 (132-148) mmol/L Potassium 3.4 L (3.6-5.0) mmol/L Chloride 109 H (98-107) mmol/L Carbon Dioxide 28 (21-33) mmol/L Anion Gap 10 (10-20) BUN 22 H (7-21) mg/dL Creatinine 0.8 (0.8-1.5) mg/dl Est GFR ( Amer) > 60 Est GFR (Non-Af Amer) > 60 Random Glucose 98 (70-110) mg/dL Calcium 9.0 (8.4-10.5) mg/dL Phosphorus 4.5 (2.5-4.5) mg/dL Magnesium 2.0 (1.7-2.2) mg/dL Total Bilirubin 1.1 (0.2-1.3) mg/dL AST 60 H (17-59) U/L ALT 60 H (7-56) U/L Alkaline Phosphatase 66 (38-126) U/L Total Protein 6.5 (5.8-8.3) g/dL Albumin 3.6 (3.0-4.8) g/dL Globulin 3.0 gm/dL Albumin/Globulin Ratio 1.2 (1.1-1.8) Procalcitonin (0.19-0.49) NG/ML 07/14/18 Range/Units 05:30 WBC (4.5-11.0) 10^3/uL RBC (3.5-6.1) 10^6/uL Hgb (14.0-18.0) g/dL Hct (42.0-52.0) % MCV (80.0-105.0) fl MCH (25.0-35.0) pg MCHC (31.0-37.0) g/dl RDW (11.5-14.5) % Plt Count (120.0-450.0) 10^3/uL MPV (7.0-11.0) fl Neut % (Auto) (50.0-68.0) % Lymph % (Auto) (22.0-35.0) % [place] % (Auto) (1.0-6.0) % Eos % (Auto) (1.5-5.0) % Baso % (Auto) (0.0-3.0) % Lymph # (Auto) (1.2-3.4) [place] # (Auto) (0.1-0.6) Eos # (Auto) (0.0-0.7) Baso # (Auto) (0.0-2.0) K/mm3 Absolute Neuts (auto) (1.4-6.5) pCO2 (35-45) mm/Hg pO2 (80-100) mm/Hg HCO3 (21-28) mmol/L ABG pH (7.35-7.45) ABG Total CO2 (22-28) mmol.L ABG O2 Saturation (95-98) % ABG O2 Content (15-23) ML/dl ABG Base Excess (-2.0-3.0) mmol/L ABG Hemoglobin (11.7-17.4) g/dL ABG Carboxyhemoglobin (0.5-1.5) % POC ABG HHb (Measured) (0-5) % ABG Methemoglobin (0.0-3.0) % ABG O2 Capacity (16-24) mL/dl Hgb O2 Saturation (95.0-98.0) % FiO2 % Sodium (132-148) mmol/L Potassium (3.6-5.0) mmol/L Chloride (98-107) mmol/L Carbon Dioxide (21-33) mmol/L Anion Gap (10-20) BUN (7-21) mg/dL Creatinine (0.8-1.5) mg/dl Est GFR ( Amer) Est GFR (Non-Af Amer) Random Glucose (70-110) mg/dL Calcium (8.4-10.5) mg/dL Phosphorus (2.5-4.5) mg/dL Magnesium (1.7-2.2) mg/dL Total Bilirubin (0.2-1.3) mg/dL AST (17-59) U/L ALT (7-56) U/L Alkaline Phosphatase (38-126) U/L Total Protein (5.8-8.3) g/dL Albumin (3.0-4.8) g/dL Globulin gm/dL Albumin/Globulin Ratio (1.1-1.8) Procalcitonin 0.18 L (0.19-0.49) NG/ML Laboratory Results - last 24 hr 07/14/18 07/15/18 07/15/18 05:30 05:00 05:40 WBC 7.6 RBC 3.55 Hgb 11.1 L Hct 33.6 L MCV 94.6 MCH 31.3 MCHC 33.0 RDW 12.3 Plt Count 169 MPV 10.0 Neut % (Auto) 67.4 Lymph % (Auto) 22.5 [place] % (Auto) 9.5 H Eos % (Auto) 0.5 L Baso % (Auto) 0.1 Lymph # (Auto) 1.7 [place] # (Auto) 0.7 H Eos # (Auto) 0.0 Baso # (Auto) 0.01 Absolute Neuts (auto) 5.11 pCO2 34 L pO2 99.0 HCO3 27.8 ABG pH 7.52 H ABG Total CO2 28.8 H ABG O2 Saturation 100.1 H ABG O2 Content 15.6 ABG Base Excess 4.9 H ABG Hemoglobin 11.4 L ABG Carboxyhemoglobin 2.6 H POC ABG HHb (Measured) -0.1 L ABG Methemoglobin 1.2 ABG O2 Capacity 15.6 L Hgb O2 Saturation 96.2 FiO2 40.0 Sodium Potassium Chloride Carbon Dioxide Anion Gap BUN Creatinine Est GFR ( Amer) Est GFR (Non-Af Amer) Random Glucose Calcium Phosphorus Magnesium Total Bilirubin AST ALT Alkaline Phosphatase Total Protein Albumin Globulin Albumin/Globulin Ratio Procalcitonin 0.18 L 07/15/18 05:40 WBC RBC Hgb Hct MCV MCH MCHC RDW Plt Count MPV Neut % (Auto) Lymph % (Auto) [place] % (Auto) Eos % (Auto) Baso % (Auto) Lymph # (Auto) [place] # (Auto) Eos # (Auto) Baso # (Auto) Absolute Neuts (auto) pCO2 pO2 HCO3 ABG pH ABG Total CO2 ABG O2 Saturation ABG O2 Content ABG Base Excess ABG Hemoglobin ABG Carboxyhemoglobin POC ABG HHb (Measured) ABG Methemoglobin ABG O2 Capacity Hgb O2 Saturation FiO2 Sodium 144 Potassium 3.4 L Chloride 109 H Carbon Dioxide 28 Anion Gap 10 BUN 22 H Creatinine 0.8 Est GFR ( Amer) > 60 Est GFR (Non-Af Amer) > 60 Random Glucose 98 Calcium 9.0 Phosphorus 4.5 Magnesium 2.0 Total Bilirubin 1.1 AST 60 H ALT 60 H Alkaline Phosphatase 66 Total Protein 6.5 Albumin 3.6 Globulin 3.0 Albumin/Globulin Ratio 1.2 Procalcitonin Radiology Impressions: Radiology Impressions Chest X-Ray 07/15/18 06:00 IMPRESSION: No interval acute cardiopulmonary disease appreciable. Tubes unchanged in position. Fingerstick Blood Sugar Results: 87 Critical Care Progress Note - Ventilator Checklist Head of Bed 30 Degrees: Yes Daily Sedation Vacation: Yes Daily Assessment of Readiness to Wean: Yes Daily Spontaneous Breathing Trial: Yes PUD Prophalyxis: Yes DVT Prophylaxis: Yes Oral Care with Chlorhexidine Gluconate {CHG}: Yes - Vent Settings MODE:: PRESSURE SUPPORT - Extremities/Vascular Does the Patient have a Central Venous Catheter?: No Does the Patient have a Parr Catheter?: Yes Catheter Insertion Criteria: Need for accurate measurement of output in critically ill patient - Prophylaxis GI Prophylaxis GI: Pepsid - Prophylaxis DVT Prophylaxis DVT: Lovenox - Nutrition Nutrition: Nutrition Category Date Time Status NPO Diet [DIET] Diets 07/08/18 Dinner Ordered Assessment/Plan - Assessment and Plan (Free Text) Assessment: 48 yo M with unknown PMH who presented s/p VFib arrest (25 minutes of CPR) with subsequent targeted temperature management. He's had hypoxemic respiratory failure, failed weaning trial last but is now improved. Course is complicated by severe LV systolic dysfunction, dobutamine was started yesterday, and cardiology is following. Plan: Neuro: Patient remained intubated on pressure support overnight Patient is awake, alert, and responding to commands this AM MRI brain completed without concerning findings Neurology following, all recs appreciated Cardio: Maintaining MAP > 65 without pressor support HR remaining > 50 on dobutamine drip Continue daily ASA Transition to ACEI once able to tolerate PO Per cardiology, will plan on cath this coming Would not consider ICD placement until repeat TTE 6 months after cardiac arrest Cardiology following, all recs appreciated Pulm: Successful weaning trial and extubation this AM Patient now maintaining SpO2 > 95% on 3 L supplemental O2 NC alone Recommend nighly bipap 02/27, FiO2 of 40% No other signs of respiratory distress Endo: Random glucose: 98 Maintain glucose between 140-180 GI: Low calorie tube feedings at rate of 30 cc/hr were continued over the weekend Now that patient is extubated, will get speech/swallow evaluation prior to restarting PO intake Continue appropriate GI ppx /Nephro: Renal function parameters stable Contraction alkalosis improving Continue strict I & O Replete electrolytes PRN Heme/Onc: H/H stable, no signs of acute blood loss Continue serial H/H monitoring ID: Empiric vanc/cefepime/doxycycline started upon arrival to MICU Leukocytosis throughout admission was likely reactionary, has now resolved Most recent procal was negative, abx discontinued per ID recs ID following, all recs appreciated DVT/GI PPX: Lovenox/pepcid Full Code NPO pending speech/swallow evaluation Monitor in MICU Patient seen, examined with, and plan confirmed with my attending Dr. Wei Garibay D.O. IM Resident PGY-1 Pager: [phone] <Hernando Carvajal - Last Filed: 07/15/18 12:47> CCU Objective - Vital Signs / Intake & Output Vital Signs (Last 4 hours): Vital Signs Temp Pulse Resp BP Pulse Ox 07/15/18 12:00 98.5 F 56 L 28 H 153/89 H 99 07/15/18 11:00 60 23 143/96 H 100 07/15/18 10:00 59 L 30 H 153/88 H 99 07/15/18 09:38 59 L 152/84 H 07/15/18 09:00 61 152/84 H 99 Intake and Output (Last 8hrs): Intake & Output 07/14/18 07/15/18 07/15/18 22:59 06:59 14:59 Intake Total 610 302 Output Total 1020 350 Balance -410 -48 Weight 161 lb 6.4 oz Intake: IV 410 72 Right Antecubital 210 Right Forearm 200 72 Tube Feeding 150 180 Other 50 50 Output: Gastric Amount 0 0 Right Nares 0 0 Urine 820 300 Condom 820 300 Stool 50 Urine/Stool Mix 200 Other: # Bowel Movements 2 - Medications Active Medications: Active Medications Generic Name Dose Route Start Last Admin Trade Name Freq PRN Reason Stop Dose Admin Amiodarone HCl 400 mg 07/14/18 12:18 07/15/18 09:38 Cordarone PO Not Given DAILY RITA Artificial Tears 1 appl 07/08/18 18:58 Puralube Opht Oint OU Q4H PRN Dry eyes Artificial Tears 0.3 ml 07/09/18 09:09 07/09/18 10:37 Refresh Opth Soln OU 2 d Q4H PRN Administration Dry eyes Aspirin 81 mg 07/11/18 10:00 07/15/18 09:38 Aspirin Chewable PO Not Given DAILY [facility] Enoxaparin Sodium 40 mg 07/14/18 10:00 07/15/18 10:02 Lovenox SC 40 mg DAILY RITA Administration Protocol Famotidine 20 mg 07/09/18 10:00 07/15/18 10:00 Pepcid IVP 20 mg DAILY [facility] Administration Dobutamine HCl/Dextrose 500 mg in 250 mls @ 5.545 mls/hr 07/14/18 14:52 07/14/18 15:16 Dobutamine/Dextrose 5% 500mg/250ml IV 2.5 mcg/kg/min .Q24H PRN 5.545 mls/hr TITRATE PER PROTOCOL Administration Protocol 2.5 MCG/KG/MIN - Patient Studies Lab Studies: Microbiology Studies 07/09/18 15:20 Blood Culture - Final Blood NO GROWTH AFTER 5 DAYS Gram Stain - Final TEST NOT PERFORMED 07/11/18 13:30 Blood Culture - Preliminary Blood NO GROWTH AFTER 3 DAYS 07/11/18 13:00 Blood Culture - Preliminary Blood NO GROWTH AFTER 3 DAYS Lab Studies 07/15/18 07/15/18 07/15/18 Range/Units 07:45 05:40 05:40 WBC 7.6 (4.5-11.0) 10^3/uL RBC 3.55 (3.5-6.1) 10^6/uL Hgb 11.1 L (14.0-18.0) g/dL Hct 33.6 L (42.0-52.0) % MCV 94.6 (80.0-105.0) fl MCH 31.3 (25.0-35.0) pg MCHC 33.0 (31.0-37.0) g/dl RDW 12.3 (11.5-14.5) % Plt Count 169 (120.0-450.0) 10^3/uL MPV 10.0 (7.0-11.0) fl Neut % (Auto) 67.4 (50.0-68.0) % Lymph % (Auto) 22.5 (22.0-35.0) % [place] % (Auto) 9.5 H (1.0-6.0) % Eos % (Auto) 0.5 L (1.5-5.0) % Baso % (Auto) 0.1 (0.0-3.0) % Lymph # (Auto) 1.7 (1.2-3.4) [place] # (Auto) 0.7 H (0.1-0.6) Eos # (Auto) 0.0 (0.0-0.7) Baso # (Auto) 0.01 (0.0-2.0) K/mm3 Absolute Neuts (auto) 5.11 (1.4-6.5) pCO2 (35-45) mm/Hg pO2 (80-100) mm/Hg HCO3 (21-28) mmol/L ABG pH (7.35-7.45) ABG Total CO2 (22-28) mmol.L ABG O2 Saturation (95-98) % ABG O2 Content (15-23) ML/dl ABG Base Excess (-2.0-3.0) mmol/L ABG Hemoglobin (11.7-17.4) g/dL ABG Carboxyhemoglobin (0.5-1.5) % POC ABG HHb (Measured) (0-5) % ABG Methemoglobin (0.0-3.0) % ABG O2 Capacity (16-24) mL/dl Hgb O2 Saturation (95.0-98.0) % FiO2 % Sodium 144 (132-148) mmol/L Potassium 3.4 L (3.6-5.0) mmol/L Chloride 109 H (98-107) mmol/L Carbon Dioxide 28 (21-33) mmol/L Anion Gap 10 (10-20) BUN 22 H (7-21) mg/dL Creatinine 0.8 (0.8-1.5) mg/dl Est GFR ( Amer) > 60 Est GFR (Non-Af Amer) > 60 Random Glucose 98 (70-110) mg/dL Calcium 9.0 (8.4-10.5) mg/dL Phosphorus 4.5 (2.5-4.5) mg/dL Magnesium 2.0 (1.7-2.2) mg/dL Total Bilirubin 1.1 (0.2-1.3) mg/dL AST 60 H (17-59) U/L ALT 60 H (7-56) U/L Alkaline Phosphatase 66 (38-126) U/L Total Protein 6.5 (5.8-8.3) g/dL Albumin 3.6 (3.0-4.8) g/dL Globulin 3.0 gm/dL Albumin/Globulin Ratio 1.2 (1.1-1.8) Procalcitonin (0.19-0.49) NG/ML Hepatitis A IgM Ab Negative (NEGATIVE) Hep B Core IgM Ab Negative (NEGATIVE) Hepatitis C Antibody Negative (NEGATIVE) 07/15/18 07/14/18 Range/Units 05:00 05:30 WBC (4.5-11.0) 10^3/uL RBC (3.5-6.1) 10^6/uL Hgb (14.0-18.0) g/dL Hct (42.0-52.0) % MCV (80.0-105.0) fl MCH (25.0-35.0) pg MCHC (31.0-37.0) g/dl RDW (11.5-14.5) % Plt Count (120.0-450.0) 10^3/uL MPV (7.0-11.0) fl Neut % (Auto) (50.0-68.0) % Lymph % (Auto) (22.0-35.0) % [place] % (Auto) (1.0-6.0) % Eos % (Auto) (1.5-5.0) % Baso % (Auto) (0.0-3.0) % Lymph # (Auto) (1.2-3.4) [place] # (Auto) (0.1-0.6) Eos # (Auto) (0.0-0.7) Baso # (Auto) (0.0-2.0) K/mm3 Absolute Neuts (auto) (1.4-6.5) pCO2 34 L (35-45) mm/Hg pO2 99.0 (80-100) mm/Hg HCO3 27.8 (21-28) mmol/L ABG pH 7.52 H (7.35-7.45) ABG Total CO2 28.8 H (22-28) mmol.L ABG O2 Saturation 100.1 H (95-98) % ABG O2 Content 15.6 (15-23) ML/dl ABG Base Excess 4.9 H (-2.0-3.0) mmol/L ABG Hemoglobin 11.4 L (11.7-17.4) g/dL ABG Carboxyhemoglobin 2.6 H (0.5-1.5) % POC ABG HHb (Measured) -0.1 L (0-5) % ABG Methemoglobin 1.2 (0.0-3.0) % ABG O2 Capacity 15.6 L (16-24) mL/dl Hgb O2 Saturation 96.2 (95.0-98.0) % FiO2 40.0 % Sodium (132-148) mmol/L Potassium (3.6-5.0) mmol/L Chloride (98-107) mmol/L Carbon Dioxide (21-33) mmol/L Anion Gap (10-20) BUN (7-21) mg/dL Creatinine (0.8-1.5) mg/dl Est GFR ( Amer) Est GFR (Non-Af Amer) Random Glucose (70-110) mg/dL Calcium (8.4-10.5) mg/dL Phosphorus (2.5-4.5) mg/dL Magnesium (1.7-2.2) mg/dL Total Bilirubin (0.2-1.3) mg/dL AST (17-59) U/L ALT (7-56) U/L Alkaline Phosphatase (38-126) U/L Total Protein (5.8-8.3) g/dL Albumin (3.0-4.8) g/dL Globulin gm/dL Albumin/Globulin Ratio (1.1-1.8) Procalcitonin 0.18 L (0.19-0.49) NG/ML Hepatitis A IgM Ab (NEGATIVE) Hep B Core IgM Ab (NEGATIVE) Hepatitis C Antibody (NEGATIVE) Laboratory Results - last 24 hr 07/14/18 07/15/18 07/15/18 05:30 05:00 05:40 WBC 7.6 RBC 3.55 Hgb 11.1 L Hct 33.6 L MCV 94.6 MCH 31.3 MCHC 33.0 RDW 12.3 Plt Count 169 MPV 10.0 Neut % (Auto) 67.4 Lymph % (Auto) 22.5 [place] % (Auto) 9.5 H Eos % (Auto) 0.5 L Baso % (Auto) 0.1 Lymph # (Auto) 1.7 [place] # (Auto) 0.7 H Eos # (Auto) 0.0 Baso # (Auto) 0.01 Absolute Neuts (auto) 5.11 pCO2 34 L pO2 99.0 HCO3 27.8 ABG pH 7.52 H ABG Total CO2 28.8 H ABG O2 Saturation 100.1 H ABG O2 Content 15.6 ABG Base Excess 4.9 H ABG Hemoglobin 11.4 L ABG Carboxyhemoglobin 2.6 H POC ABG HHb (Measured) -0.1 L ABG Methemoglobin 1.2 ABG O2 Capacity 15.6 L Hgb O2 Saturation 96.2 FiO2 40.0 Sodium Potassium Chloride Carbon Dioxide Anion Gap BUN Creatinine Est GFR ( Amer) Est GFR (Non-Af Amer) Random Glucose Calcium Phosphorus Magnesium Total Bilirubin AST ALT Alkaline Phosphatase Total Protein Albumin Globulin Albumin/Globulin Ratio Procalcitonin 0.18 L Hepatitis A IgM Ab Hep B Core IgM Ab Hepatitis C Antibody 07/15/18 07/15/18 05:40 07:45 WBC RBC Hgb Hct MCV MCH MCHC RDW Plt Count MPV Neut % (Auto) Lymph % (Auto) [place] % (Auto) Eos % (Auto) Baso % (Auto) Lymph # (Auto) [place] # (Auto) Eos # (Auto) Baso # (Auto) Absolute Neuts (auto) pCO2 pO2 HCO3 ABG pH ABG Total CO2 ABG O2 Saturation ABG O2 Content ABG Base Excess ABG Hemoglobin ABG Carboxyhemoglobin POC ABG HHb (Measured) ABG Methemoglobin ABG O2 Capacity Hgb O2 Saturation FiO2 Sodium 144 Potassium 3.4 L Chloride 109 H Carbon Dioxide 28 Anion Gap 10 BUN 22 H Creatinine 0.8 Est GFR ( Amer) > 60 Est GFR (Non-Af Amer) > 60 Random Glucose 98 Calcium 9.0 Phosphorus 4.5 Magnesium 2.0 Total Bilirubin 1.1 AST 60 H ALT 60 H Alkaline Phosphatase 66 Total Protein 6.5 Albumin 3.6 Globulin 3.0 Albumin/Globulin Ratio 1.2 Procalcitonin Hepatitis A IgM Ab Negative Hep B Core IgM Ab Negative Hepatitis C Antibody Negative Radiology Impressions: Radiology Impressions Chest X-Ray 07/15/18 06:00 IMPRESSION: No interval acute cardiopulmonary disease appreciable. Tubes unchanged in position. Critical Care Progress Note - Nutrition Nutrition: Nutrition Category Date Time Status NPO Diet [DIET] Diets 07/08/18 Dinner Ordered Attending/Attestation - Attestation I have personally seen and examined this patient.: Yes I have fully participated in the care of the patient.: Yes I have reviewed all pertinent clinical information: Yes Notes (Text): 07/15/18 12:[address] Carvajal note
[2018-07-15] MEDS: Enoxaparin 40 mg Syringe SC SCH (10:02)
--- NOTE | 2018-07-15 11:11 | PN ---
DATE: 07/15/2018 SUBJECTIVE: The patient is seen this morning in the ICU 128, bed 4. She appears to be responsive. PHYSICAL EXAMINATION: VITAL SIGNS: On exam temperature is 99, blood pressure is 150/80 and respiratory rate of . HEENT: Reveals ET tube in place. NECK: Supple. LUNGS: Have decreased breath sounds. HEART: Normal S1 and S2. ABDOMEN: Soft and nontender. LABORATORY EXAMINATION: Reveals a white count of 7.6, hemoglobin of 11 and platelets of 169. BUN of 22 and creatinine of 0.8. LFTs are noted and procalcitonin is 0.18. Urinalysis is noted and serology is noted. HIV is negative. Urine antigen for Legionella is negative and the patient is now off of antibiotics. The patient's chest x-ray this morning has no change in the acute cardiopulmonary disease. ASSESSMENT AND PLAN: This is a 48-year-old male who was seen earlier in the intensive care unit 128 on the ventilator in respiratory failure, intubated on a ventilator with cardiac arrest and 6 days of Zosyn and doxycycline, cultures negative with severe sepsis, cardiac arrest, aspiration pneumonia and procalcitonin is normal now. Off of antibiotics, afebrile and normal white count. The patient is at risk for developing nosocomial infections. Ever Miller MD
--- NOTE | 2018-07-15 11:15 | CP.PCM.PN ---
<Jimmy Angel - Last Filed: 07/15/18 11:12> Subjective - Date & Time of Evaluation Date of Evaluation: 07/15/18 Time of Evaluation: 08:00 - Subjective Subjective: INTERNAL MEDICINE PROGRESS NOTE FOR DR. ABBI Angel PGY1 Pt seen and examined at bedside this am. No acute events overnight. Pt is obeying commands this am. He is off sedation, still intubated, currently on pressure support trial. ROS unable to obtained Objective - Vital Signs/Intake and Output Vital Signs (last 24 hours): Temp Pulse Resp BP Pulse Ox 99 F 59 L 22 152/84 H 100 07/15/18 07:37 07/15/18 09:38 07/15/18 06:57 07/15/18 09:38 07/15/18 07:00 Intake and Output: 07/15/18 07/15/18 06:59 18:59 Intake Total 302 Output Total 350 Balance -48 - Medications Medications: Current Medications Amiodarone HCl (Cordarone) 400 mg PO DAILY [facility] Last Admin: 07/15/18 09:38 Dose: Not Given Artificial Tears (Puralube Opht Oint) 1 appl OU Q4H PRN PRN Reason: Dry eyes Artificial Tears (Refresh Opth Soln) 0.3 ml OU Q4H PRN PRN Reason: Dry eyes Last Admin: 07/09/18 10:37 Dose: 2 d Aspirin (Aspirin Chewable) 81 mg PO DAILY [facility] Last Admin: 07/15/18 09:38 Dose: Not Given Enoxaparin Sodium (Lovenox) 40 mg SC DAILY [facility]; Protocol Last Admin: 07/15/18 10:02 Dose: 40 mg Famotidine (Pepcid) 20 mg IVP DAILY [facility] Last Admin: 07/15/18 10:00 Dose: 20 mg Dobutamine HCl/Dextrose (Dobutamine/Dextrose 5% 500mg/250ml) 500 mg in 250 mls @ 5.545 mls/hr IV .Q24H PRN; Protocol PRN Reason: TITRATE PER PROTOCOL Last Admin: 07/14/18 15:16 Dose: 2.5 mcg/kg/min, 5.545 mls/hr - Labs Labs: 07/15/18 05:40 07/15/18 05:40 PT 12.7 SECONDS (9.4-12.5) H 07/09/18 21:10 INR 1.14 07/09/18 21:10 APTT 50.0 Seconds (26.9-38.3) H 07/12/18 04:00 - Constitutional Appears: Non-toxic, No Acute Distress - Eye Exam Eye Exam: EOMI, PERRL - ENT Exam ENT Exam: Mucous Membranes Dry, ET tube in place - Neck Exam Neck Exam: Normal Inspection, - Respiratory Exam Respiratory Exam: Clear to Ausculation Bilaterally, no m/r/g - Cardiovascular Exam Cardiovascular Exam: REGULAR RHYTHM, +S1, +S2 - GI/Abdominal Exam GI & Abdominal Exam: Soft. absent: Tenderness - Extremities Exam Extremities Exam: Normal Inspection - Neurological Exam Neurological Exam: Alert, Awake - Skin Skin Exam: Dry, Intact, Warm Assessment and Plan - Assessment and Plan (Free Text) Assessment: 48 year old male presented to the emergency department, with unknown past medical history brought in by ambulance after a witnessed cardiac arrest with ventricular fibrillation. s/p CPR for 25 minutes, 3x epinephrines, 2 narcans, 5 shocks and 3x Amiodarone in the field. Pt achieved ROSC and is taken off code freeze w/ in 72 hours. Pt's neuro status being monitored in ICU. Mental status has showed improvement Plan: Cardiac Arrest in the setting of ventricular fibrillation s/p ROSC - s/p witnessed cardiac arrest with ventricular fibrillation. s/p CPR for 25 minutes, 3x epinephrine, 2x narcan, 5 shocks & 3x Amiodarone. Approximate downtime 25minutes. s/p code freeze completed at 5:30 pm 07/09 - Currently intubated, off of sedation, obeying verbal commands, no verbal response as he is intubated, opens eyes spontaneously - Continue oral amiodarone 400mg per cardio recs. Was previously on amiodarone drip. Pulse has been controlled with HR in 50-60s - Started on dobutamine drip by [employer]. - Pt to be extubated today if he passes weaning trial - Urine tox: (+) opioids and cannibinoids - Hemoglobin A1C - 5.0 - lipid panel - Chol 184, LDL - 84, HDL - 85 - TSH/T4 - TSH = 6.37, T4 = wnl NSTEMI - EKG showed NSR @ 68. L axis deviation, Initial troponins 07/08:0.06, 07/08:9.05, 07/09:7.6. - Heparin started x 5d. Hgb dropped from 13.5 to 11.2. Hep discontinued on 07/13 & switched to lovenox 40sc daily on 07/13 - Cardiology has been following, plan for cardiac cath 07/17 pending extubation Severe cardiomyopathy w/ reduced EF in the setting of cardiac arrest - Echo: LVEF of 13%, left ventricle is normal size, normal left ventricular wall thickness, systolic function is severely impaired, significant regional wall motion abnormalities noted, mitral regurgitation is mild to moderate, trace aortic regurgitation. - CXR 07/14: No significant interval changes noted since the prior exam - Heparin discontinued. CXR, physical not revealing signs of fluid overload, diuretics not required at the moment Severe sepsis w/ VDRF 04/26 aspiration pneumonia - Remains afebrile, Normotensive. Leukocytosis resolved - MRSA Screen (-). Vancomycin discontinued - CXR 07/14: No acute abnormalities. Procalcitonin 07/10: 5.90, 07/08: <0.05, 07/14: 0.18 - continue docycycline (07/09)/zosyn(07/10) per ID recs - pancultures negative thus far. Ur L. pneumophilia ag 07/09: (-). f/u s. pneumo Ag - continue VAP bundle: Daily sedation vacation, HOB 30-45 degrees, DVT/GI ppx, oral care/subglottic suctioning - ID following AMS 2/ cardiac arrest - r/o anoxic brain injury - currently tracking with eyes, more awake. Obeying commands. Mental status has improved. Pending extubation today - Pt requiring restraints /2 pulling - Maintain MAP 80-100 - Brain MRI (07/11): no acute intracranial findings - Head CT (07/10): "No acute abnormalities. No significant findinsg to account for clinical presentation. No significant interval change compared to prior exa mination. Head CT (07/08): Supobtimal diagnostic quality due to extensive beam hardening artifacts patient motion. Allowing for this, no acute intracranial abnormalities. - Video EEG 07/11: Moderate to severe non specific diffuse disturbance of cortical activity, in keeping with a diffuse chase matter dysfunction. The findings do not suggest a specific etiology - Neurology, consulted, Dr. Hackett follow recs - continue seizure precautions and neuro checks, HOB>30-45degrees, aspiration precautions - Currently on tube feeds via NG tube. Will anticipate PEG tube placement if pt requiring prolonged intubation. GI/DVT PPx: Pepcid/lovenox Dispo: Palliative care consulted. Will attempt to establish goals of care from family/POAFurther Care per ICU team Case reviewed with attending physician, Dr. Carmela Angel PGY1 <Carmela Walker R - Last Filed: 07/16/18 12:28> Objective - Vital Signs/Intake and Output Vital Signs (last 24 hours): Temp Pulse Resp BP Pulse Ox 98.5 F 68 25 H 151/79 H 98 07/15/18 12:00 07/16/18 09:40 07/16/18 06:00 07/16/18 09:40 07/16/18 06:00 Intake and Output: 07/16/18 07/16/18 06:59 18:59 Intake Total 72 Balance 72 - Medications Medications: Current Medications Amiodarone HCl (Cordarone) 400 mg PO DAILY [facility] Last Admin: 07/16/18 09:40 Dose: 400 mg Artificial Tears (Puralube Opht Oint) 1 appl OU Q4H PRN PRN Reason: Dry eyes Artificial Tears (Refresh Opth Soln) 0.3 ml OU Q4H PRN PRN Reason: Dry eyes Last Admin: 07/09/18 10:37 Dose: 2 d Aspirin (Aspirin Chewable) 81 mg PO DAILY [facility] Last Admin: 07/16/18 09:40 Dose: 81 mg Enoxaparin Sodium (Lovenox) 40 mg SC DAILY [facility]; Protocol Last Admin: 07/16/18 09:41 Dose: 40 mg Famotidine (Pepcid) 20 mg IVP DAILY [facility] Last Admin: 07/16/18 09:41 Dose: 20 mg Dobutamine HCl/Dextrose (Dobutamine/Dextrose 5% 500mg/250ml) 500 mg in 250 mls @ 5.545 mls/hr IV .Q24H PRN; Protocol PRN Reason: TITRATE PER PROTOCOL Last Admin: 07/14/18 15:16 Dose: 2.5 mcg/kg/min, 5.545 mls/hr - Labs Labs: 07/16/18 05:45 07/16/18 05:45 PT 12.7 SECONDS (9.4-12.5) H 07/09/18 21:10 INR 1.14 07/09/18 21:10 APTT 50.0 Seconds (26.9-38.3) H 07/12/18 04:00 Attending/Attestation - Attestation I have personally seen and examined this patient.: Yes I have fully participated in the care of the patient.: Yes I have reviewed all pertinent clinical information, including history, physical exam and plan: Yes Notes (Text): Patient seen and examined by me with resident at approximately 8:30AM on 07/15/18. Case including HPI, physical exam, and assessment and plan discussed with resident. Agree with above with following additions/corrections. Patient is a 48 year old male with unknown past medical history that presented to the emergency room s/p cardiac arrest and ventricular fibrillation. Patient awake and alert. Intubated. Not answering questions. Patient is following a few commands. Patient on soft restraints. Afebrile. Possible extubation today. Physical exam: General: Awake and alert lying in bed in no acute distress HEENT: Normocephalic, atraumatic. Extraocular muscles intact. Pupils equal and reactive, no scleral icterus. ET tube in place. NGT in place. Cardiovascular: Normal rhythm. Normal S1 and S2. No murmurs, rubs, or gallops appreciated Pulmonary: Ventilator sounds appreciated. No rhonchi, rales, or wheezing appreciated Gastrointestinal: Soft, nondistended. Nontender. Positive bowel sounds all 4 quadrants. No guarding. Musculoskeletal: Wiggles toes. Upper extremities in soft restraints. No edema appreciated. Central nervous system: Awake and alert. Able to follow some commands. Dermatologic: Skin warm and dry. Assessment and plan: Patient is a 48 year old male with unknown past medical history that presented to the emergency room s/p cardiac arrest and ventricular fibrillation. 1. S/P V-fib arrest. S/P hypothermia protocol. NSTEMI. Dilated cardiomyopathy. Troponins were 0.06, then 9.05, then 7.60. Cardiology recommendations appreciated. S/P heparin drip. Continue amiodarone. Continue ASA. On dobutamine drip. 2D echo per [employer] showed LVEF of 13%, left ventricle is normal size, normal left ventricular wall thickness, systolic function is severely impaired, significant regional wall motion abnormalities noted, mitral regurgitation is mild to moderate, trace aortic regurgitation. 2. S/P severe sepsis secondary to aspiration pneumonia. ID recommendations appreciated. S/P treatment with Doxcycline and Zosyn. Patient afebrile. Leukocytosis resolved. Blood and urine cultures with no growth. Procalcitonin was <0.05, then 5.90, and now 0.18. CT chest/abdomen/pelvis per radiologist on 07/08/2018 showed findings in the lung may represent pulmonary edema or aspiration pneumonitis, moderate bilateral pleural effusions, no acute findings in the abdomen or pelvis; fluid filled distended stomach, fluid in the small bowel loops, and fluid filled mildly distended colon. 3. Vent dependent respiratory failure. Possible extubation today. 4. Possible anoxic encephalopathy. Neurology recommendations appreciated. Continue seizure precautions. Continue supportive care. Head CT 07/10/18 per radiologist showed no acute intracranial abnormalities. Brain MRI per radiologist showed no acute cranial findings. Continue neurochecks. EEG per neurologist showed moderate to severe nonspecific diffuse disturbance of cortical activity, in keeping with the diffuse chase matter dysfunction; findings do not suggest a specific etiology. Reevaluate status once extubated. 5. Transaminitis. Improving. Continue to monitor. 6. Drug abuse. Urine drug screen positive for opioids and cannabinoids. 7. GI/DVT prophylaxis. Pepcid/Lovenox. 8. Palliative care following
[2018-07-15 12:10] LABS: HEPATITIS A IGM NEGATIVE (NEGATIVE); HEPATITIS B CORE AB NEGATIVE (NEGATIVE)
[2018-07-15 12:22] LABS: HEPATITIS C ANTIBODY NEGATIVE (NEGATIVE)
--- NOTE | 2018-07-15 13:28 | PN ---
DATE: 07/15/2018 CARDIOLOGY FOLLOWUP SUBJECTIVE: The patient is extubated; however, the patient is very lethargic. PHYSICAL EXAMINATION: VITAL SIGNS: Blood pressure 152/84, heart rate in the 60s. NECK: Negative JVD. LUNGS: Without rales. HEART: S1, S2. EXTREMITIES: Without edema. LABORATORY DATA: Hemoglobin is 11.1. Chemistries, BUN and creatinine are unremarkable. IMPRESSION: 1. Status post cardiac arrest. 2. Dilated cardiomyopathy. 3. Status post respiratory arrest. 4. Sepsis. Given these findings and unable to speak with the patient where he give informed consent about potential cardiac catheterization, we will try again tomorrow. Hopefully, his mental status will be improved. Kelby Guerrero MD
[2018-07-15 14:08] LABS: HEPATITIS B SURFACE AG Reactive (NEGATIVE)
--- NOTE | 2018-07-15 16:25 | PN ---
DATE: 07/15/2018 SUBJECTIVE: The patient is seen and examined at bedside. He is comfortable. He is alert, awake, following commands and trying to talk. He was extubated early in the morning. He does not have any signs of respiratory or otherwise distress. PHYSICAL EXAMINATION: VITAL SIGNS: Currently in about 2 hours from extubation, his blood pressure 143/96, oxygen saturation 99% on 2 liters nasal cannula, respiratory rate 25, and heart rate 54. ENT: Head and neck atraumatic. LUNGS: Clear to auscultation bilaterally. HEART: Regular rate and rhythm. S1 and S2 normal. ABDOMEN: Soft, nontender, nondistended. MUSCULOSKELETAL: No C/C/E. NEURO: The patient moves all extremities spontaneously. SKIN: Moist. PSYCH: The patient is alert, awake and oriented x3. LABORATORY DATA: Sodium 144, potassium 3.4, chloride 109, carbon dioxide 28, BUN 22, creatinine 0.8, glucose 98, AST 60, ALT 60, total bilirubin 1.1. WBC 7.6, hemoglobin 11.1, hematocrit 33.6, and platelet count 169. MEDICATIONS: Amiodarone 400 mg daily, aspirin, dobutamine, Lovenox, Pepcid, and potassium supplementation. ASSESSMENT AND PLAN: This is a 48-year-old gentleman, who was admitted to [facility] intensive care unit after out of hospital ventricular fibrillation arrest, treated with targeted temperature management. The patient's cardiogenic shock resolved. He was weaned off of mechanical ventilation. Cardiology service is following him as well. Currently he is on dobutamine; however, will be transitioned to beta devon therapy and afterload reduction with angiotensin converting enzyme inhibitors as soon as Cardiology gives green light. Meanwhile, decision and timing of cardiac catheterization with possible percutaneous coronary intervention will be deferred to Cardiology service as well. Cardiology service is following the patient (Dr. Guerrero). At the present time, the patient is hemodynamically and respiratory young stable, protecting airways, not in respiratory or otherwise distress. We will continue with deep vein thrombosis and gastrointestinal prophylaxis and aspirin. ccm time 40 min Hernando Carvajal MD MTDD
[2018-07-15] MEDS ORDERED: VITS A AND D/WHITE PET/LANOLIN 113.4 APPLIC/113.4 G TUBE TP PRN (17:48)
[2018-07-16 06:48] LABS: BASO # 0.01 K/mm3 (0.0-2.0); BASO % 0.1 % (0.0-3.0); EOS # 0.1 (0.0-0.7); EOS % 0.4 % (1.5-5.0); HEMOGLOBIN 11.8 g/dL (14.0-18.0); LYMPH # 1.8 (1.2-3.4); LYMPH % 14.3 % (22.0-35.0); MEAN CELL VOLUME 95.7 fl (80.0-105.0); MEAN CORPUSCULAR HEMOGLOBIN 31.4 pg (25.0-35.0); MEAN CORPUSCULAR HGB CONC 32.8 g/dl (31.0-37.0); MEAN PLATELET VOLUME 9.7 fl (7.0-11.0); MONO # 0.9 (0.1-0.6); MONO % 6.8 % (1.0-6.0); RBC 3.76 10^6/uL (3.5-6.1); RED CELL DISTRIBUTION WIDTH 12.4 % (11.5-14.5); WHITE BLOOD COUNT 12.6 10^3/uL (4.5-11.0)
[2018-07-16 07:00] LABS: ALB/GLOB RATIO 1.2 (1.1-1.8); ALBUMIN 4.2 g/dL (3.0-4.8); ALT/SGPT 64 U/L (7-56); AST/SGOT 59 U/L (17-59); BLOOD UREA NITROGEN 22 mg/dL (7-21); CALCIUM 9.3 mg/dL (8.4-10.5); GFR NON-AFRICAN AMERICAN > 60
--- NOTE | 2018-07-16 08:34 | CP.PCM.PN ---
<Jimmy Angel - Last Filed: 07/16/18 11:06> Subjective - Date & Time of Evaluation Date of Evaluation: 07/16/18 Time of Evaluation: 08:32 - Subjective Subjective: INTERNAL MEDICINE PROGRESS NOTE FOR DR. ABBI Angel PGY1 Pt seen and examined at bedside this am. Pt was extubated yesterday. He failed speech eval & is still NPO. He is able to say hello, obeys some, but not all commands including finger to nose, and squeezing hands. He is not very verbal. ROS not able to be obtained as patient does not completely respond to questions. Objective - Vital Signs/Intake and Output Vital Signs (last 24 hours): Temp Pulse Resp BP Pulse Ox 98.5 F 68 25 H 151/94 H 98 07/15/18 12:00 07/16/18 06:00 07/16/18 06:00 07/16/18 06:00 07/16/18 06:00 Intake and Output: 07/16/18 07/16/18 06:59 18:59 Intake Total 72 Balance 72 - Medications Medications: Current Medications Amiodarone HCl (Cordarone) 400 mg PO DAILY [facility] Last Admin: 07/15/18 09:38 Dose: Not Given Artificial Tears (Puralube Opht Oint) 1 appl OU Q4H PRN PRN Reason: Dry eyes Artificial Tears (Refresh Opth Soln) 0.3 ml OU Q4H PRN PRN Reason: Dry eyes Last Admin: 07/09/18 10:37 Dose: 2 d Aspirin (Aspirin Chewable) 81 mg PO DAILY [facility] Last Admin: 07/15/18 09:38 Dose: Not Given Enoxaparin Sodium (Lovenox) 40 mg SC DAILY [facility]; Protocol Last Admin: 07/15/18 10:02 Dose: 40 mg Famotidine (Pepcid) 20 mg IVP DAILY [facility] Last Admin: 07/15/18 10:00 Dose: 20 mg Dobutamine HCl/Dextrose (Dobutamine/Dextrose 5% 500mg/250ml) 500 mg in 250 mls @ 5.545 mls/hr IV .Q24H PRN; Protocol PRN Reason: TITRATE PER PROTOCOL Last Admin: 07/14/18 15:16 Dose: 2.5 mcg/kg/min, 5.545 mls/hr - Labs Labs: 07/16/18 05:45 07/16/18 05:45 PT 12.7 SECONDS (9.4-12.5) H 07/09/18 21:10 INR 1.14 07/09/18 21:10 APTT 50.0 Seconds (26.9-38.3) H 07/12/18 04:00 - Constitutional Appears: Well, Non-toxic, No Acute Distress - Head Exam Head Exam: NORMAL INSPECTION, NORMOCEPHALIC - Eye Exam Eye Exam: EOMI, Normal appearance Pupil Exam: Irregular (R>L), PERRL - ENT Exam ENT Exam: Mucous Membranes Dry, Normal Exam - Neck Exam Neck Exam: Normal Inspection - Respiratory Exam Respiratory Exam: NORMAL BREATHING PATTERN - Cardiovascular Exam Cardiovascular Exam: REGULAR RHYTHM, +S1, +S2 - GI/Abdominal Exam GI & Abdominal Exam: Soft, Normal Bowel Sounds - Extremities Exam Extremities Exam: Normal Inspection. absent: Calf Tenderness - Back Exam Back Exam: NORMAL INSPECTION - Neurological Exam Neurological Exam: Alert, Awake - Psychiatric Exam Psychiatric exam: Normal Affect - Skin Skin Exam: Dry, Intact, Warm Assessment and Plan - Assessment and Plan (Free Text) Assessment: 48 year old male presented to the emergency department, with unknown past medical history brought in by ambulance after a witnessed cardiac arrest with ventricular fibrillation. s/p CPR for 25 minutes, 3x epinephrines, 2 narcans, 5 shocks and 3x Amiodarone in the field. Pt achieved ROSC and is taken off code freeze w/ in 72 hours. Pt's neuro status being monitored in ICU. Mental status has showed improvement, pt extubated yesterday afternoon. Plans for cardiac catheterization tomorrow Plan: Cardiac Arrest in the setting of ventricular fibrillation s/p ROSC - s/p witnessed cardiac arrest with ventricular fibrillation. s/p CPR for 25 minutes, 3x epinephrine, 2x narcan, 5 shocks & 3x Amiodarone. Approximate downtime 25minutes. s/p code freeze completed at 5:30 pm 07/09 - Currently saturating well on room air, awake, alert, obeying some commands. Minimally verbal. - Continue oral amiodarone 400mg per cardio recs. Was previously on amiodarone drip. Pulse has been controlled with HR in 50-60s - Continue on dobutamine drip by oracle reports developer - Urine tox: (+) opioids and cannibinoids - Hemoglobin A1C - 5.0 - lipid panel - Chol 184, LDL - 84, HDL - 85 - TSH/T4 - TSH = 6.37, T4 = wnl NSTEMI - EKG showed NSR @ 68. L axis deviation, Initial troponins 07/08:0.06, 07/08:9.05, 07/09:7.6. - Heparin started x 5d. Hgb dropped from 13.5 to 11.2. Hep discontinued on 07/13 & switched to lovenox 40sc daily on 07/13 - Cardiology has been following, plan for cardiac cath 07/17 pending extubation Severe cardiomyopathy w/ reduced EF in the setting of cardiac arrest - Echo: LVEF of 13%, left ventricle is normal size, normal left ventricular wall thickness, systolic function is severely impaired, significant regional wall motion abnormalities noted, mitral regurgitation is mild to moderate, trace aortic regurgitation. - CXR 07/14: No significant interval changes noted since the prior exam - Heparin discontinued. CXR, physical not revealing signs of fluid overload, diuretics not required at the moment Severe sepsis w/ VDRF / aspiration pneumonia - Remains afebrile, Normotensive. Leukocytosis resolved - MRSA Screen (-). Vancomycin discontinued - CXR 07/14: No acute abnormalities. Procalcitonin 07/10: 5.90, 07/08: <0.05, 07/14: 0.18 - continue docycycline (07/09)/zosyn(07/10) per ID recs - pancultures negative thus far. Ur L. pneumophilia ag 07/09: (-). f/u s. pneumo Ag - continue VAP bundle: Daily sedation vacation, HOB 30-45 degrees, DVT/GI ppx, oral care/subglottic suctioning - ID following AMS 2/2 cardiac arrest - r/o anoxic brain injury - currently tracking with eyes, more awake. Obeying commands. Mental status has improved. Pending extubation today - Pt requiring restraints 2/2 pulling - Maintain MAP 80-100 - Brain MRI (07/11): no acute intracranial findings - Head CT (07/10): "No acute abnormalities. No significant findinsg to account for clinical presentation. No significant interval change compared to prior examination. Head CT (07/08): Supobtimal diagnostic quality due to extensive beam hardening artifacts patient motion. Allowing for this, no acute intracranial abnorma lities. - Video EEG 07/11: Moderate to severe non specific diffuse disturbance of cortical activity, in keeping with a diffuse chase matter dysfunction. The findings do not suggest a specific etiology - Neurology, consulted, Dr. Hackett follow recs - continue seizure precautions and neuro checks, HOB>30-45degrees, aspiration precautions - Currently on tube feeds via NG tube. Will anticipate PEG tube placement if pt requiring prolonged intubation. Hepatis B HepBsAg (+). Confirmed positive with HepBsAg neutralization GI/DVT PPx: Pepcid/lovenox Dispo: Palliative care consulted. Will attempt to establish goals of care from family/POA - Will appreciate PT recs Pt tolerating diet now, dysphagia diet placed Further Care per ICU team Case reviewed with attending physician, Dr. Carmela Angel PGY1 <Carmela Walker R - Last Filed: 07/17/18 08:46> Objective - Vital Signs/Intake and Output Vital Signs (last 24 hours): Temp Pulse Resp BP Pulse Ox 98.5 F 89 19 129/90 100 07/17/18 06:00 07/17/18 06:00 07/17/18 06:00 07/17/18 06:00 07/17/18 06:00 Intake and Output: 07/17/18 07/17/18 06:59 18:59 Intake Total 66 Balance 66 - Medications Medications: Current Medications Amiodarone HCl (Cordarone) 400 mg PO DAILY [facility] Last Admin: 07/16/18 09:40 Dose: 400 mg Artificial Tears (Puralube Opht Oint) 1 appl OU Q4H PRN PRN Reason: Dry eyes Artificial Tears (Refresh Opth Soln) 0.3 ml OU Q4H PRN PRN Reason: Dry eyes Last Admin: 07/09/18 10:37 Dose: 2 d Aspirin (Aspirin Chewable) 81 mg PO DAILY [facility] Last Admin: 07/17/18 06:48 Dose: 81 mg Enoxaparin Sodium (Lovenox) 40 mg SC DAILY [facility]; Protocol Last Admin: 07/16/18 09:41 Dose: 40 mg Famotidine (Pepcid) 20 mg IVP DAILY [facility] Last Admin: 07/16/18 09:41 Dose: 20 mg Dobutamine HCl/Dextrose (Dobutamine/Dextrose 5% 500mg/250ml) 500 mg in 250 mls @ 5.545 mls/hr IV .Q24H PRN; Protocol PRN Reason: TITRATE PER PROTOCOL Last Admin: 07/16/18 15:20 Dose: 2.5 mcg/kg/min, 5.545 mls/hr - Labs Labs: 07/17/18 07:00 07/17/18 07:00 PT 12.7 SECONDS (9.4-12.5) H 07/09/18 21:10 INR 1.14 07/09/18 21:10 APTT 50.0 Seconds (26.9-38.3) H 07/12/18 04:00 Attending/Attestation - Attestation I have personally seen and examined this patient.: Yes I have fully participated in the care of the patient.: Yes I have reviewed all pertinent clinical information, including history, physical exam and plan: Yes Notes (Text): Patient seen and examined by me with resident at approximately 9:20AM on 07/16/18. Case including HPI, physical exam, and assessment and plan discussed with resident. Agree with above with following additions/corrections. Patient is a 48 year old male with unknown past medical history that presented to the emergency room s/p cardiac arrest and ventricular fibrillation. Patient awake and alert. Extubated. Answers some questions but is confused. Denies pain. Patient is able to follow some commands. Afebrile. On dobutamine drip. Physical exam: General: Awake and alert sitting up in bed in no acute distress HEENT: Normocephalic, atraumatic. Extraocular muscles intact. Pupils equal and reactive, no scleral icterus. Oropharynx is pink. No pharyngeal erythema or exudate appreciated. Neck is supple. Cardiovascular: Normal rhythm. Normal S1 and S2. No murmurs, rubs, or gallops appreciated Pulmonary: Normal respiratory effort. No rhonchi, rales, or wheezing appreciated Gastrointestinal: Soft, nondistended. Nontender. Positive bowel sounds all 4 quadrants. No guarding. Musculoskeletal: Moves all extremities. No calf tenderness. No edema appreciated. Central nervous system: Awake and alert. Able to follow some commands. Speech does not make sense. Dermatologic: Skin warm and dry. Assessment and plan: Patient is a 48 year old male with unknown past medical history that presented to the emergency room s/p cardiac arrest and ventricular fibrillation. 1. S/P V-fib arrest. S/P hypothermia protocol. NSTEMI. Dilated cardiomyopathy. Troponins were 0.06, then 9.05, then 7.60. Cardiology recommendations appreciated. S/P heparin drip. Continue amiodarone. Continue ASA. On dobutamine drip. Possible cardiac cath tomorrow. 2D echo per net repairer showed LVEF of 13%, left ventricle is normal size, normal left ventricular wall thickness, systolic function is severely impaired, significant regional wall motion abnormalities noted, mitral regurgitation is mild to moderate, trace aortic regurgitation. 2. S/P severe sepsis secondary to aspiration pneumonia. ID recommendations appreciated. S/P treatment with Doxcycline and Zosyn. Remains afebrile. Leukocytosis resolved. Blood and urine cultures with no growth. Procalcitonin was <0.05, then 5.90, and now 0.18. CT chest/abdomen/pelvis per radiologist on 07/08/2018 showed findings in the lung may represent pulmonary edema or aspiration pneumonitis, moderate bilateral pleural effusions, no acute findings in the abdomen or pelvis; fluid filled distended stomach, fluid in the small bowel loops, and fluid filled mildly distended colon. 3. S/P Vent dependent respiratory failure. S/P extubation 07/15/18. Failed sallow eval yesterday. For repeat swallow eval today. 4. Possible anoxic encephalopathy. Neurology recommendations appreciated. Patient following commands but speech does not make sense. Continue seizure precautions. Continue supportive care. Head CT 07/10/18 per radiologist showed no acute intracranial abnormalities. Brain MRI per radiologist showed no acute cranial findings. Continue neurochecks. EEG per neurologist showed moderate to severe nonspecific diffuse disturbance of cortical activity, in keeping with the diffuse chase matter dysfunction; findings do not suggest a specific etiology. 5. Transaminitis. Downtrending. Continue to monitor. 6. Drug abuse. Urine drug screen positive for opioids and cannabinoids. 7. GI/DVT prophylaxis. Pepcid/Lovenox. 8. Palliative care following
[2018-07-16] MEDS: Enoxaparin 40 mg Syringe SC SCH (09:41)
--- NOTE | 2018-07-16 10:10 | CP.CCUPN ---
CCU Subjective - Physician Review Subjective (Free Text): Parrish Garibay DO, PGY-1 MICU Progress Note for Dr. Carvajal Patient was seen and examined at bedside this AM. He maintained HR > 50 overnight remaining on dobutamine drip. He appears more awake and alert this AM but continues to be confused. He was able to pass swallow evaluation. CCU Objective - Vital Signs / Intake & Output Vital Signs (Last 4 hours): Vital Signs Pulse BP 07/16/18 09:40 68 151/79 H Intake and Output (Last 8hrs): Intake & Output 07/15/18 07/16/18 07/16/18 22:59 06:59 14:59 Intake Total 260 72 Balance 260 72 Weight 161 lb 6.4 oz Intake: IV 260 72 Right Forearm 200 Right Wrist 60 72 Oral 0 0 Other: # Bowel Movements 50 50 - Physical Exam Physical Exam Limitations: Positive for: Clinical Condition Head: Positive for: Atraumatic, Normocephalic Pupils: Positive for: PERRL Extroacular Muscles: Positive for: EOMI Conjunctiva: Positive for: Normal Mouth: Positive for: Moist Mucous Membranes Nose (External): Positive for: Atraumatic Neck: Negative for: Lymphadenopathy, Bruit Respiratory/Chest: Positive for: Clear to Auscultation, Good Air Exchange. Negative for: Accessory Muscle Use, Wheezes, Rales, Rhonchi Cardiovascular: Positive for: Normal S1, S2, Bradycardic. Negative for: Murmurs, Rub, Gallop Abdomen: Positive for: Normal Bowel Sounds. Negative for: Distention, Guarding Genitourinary Male: Positive for: Normal External Genitalia, Circumcised Penis Upper Extremity: Positive for: Capillary Refill < 2s. Negative for: Cyanosis, Edema, Erythema Lower Extremity: Positive for: Capillary Refill < 2 s. Negative for: Edema Neurological: Positive for: Other (GCS now 13-14, moves all limbs spontaneously and follows commands). Negative for: Speech Normal (speech soft and labored, appears confused) Skin: Positive for: Warm, Dry Psychiatric: Positive for: Other (alert and awake, responds to verbal and pa inful stimuli, but mostly non-verbal) - Medications Active Medications: Active Medications Generic Name Dose Route Start Last Admin Trade Name Freq PRN Reason Stop Dose Admin Amiodarone HCl 400 mg 07/14/18 12:18 07/16/18 09:40 Cordarone PO 400 mg DAILY [facility] Administration Artificial Tears 1 appl 07/08/18 18:58 Puralube Opht Oint OU Q4H PRN Dry eyes Artificial Tears 0.3 ml 07/09/18 09:09 07/09/18 10:37 Refresh Opth Soln OU 2 d Q4H PRN Administration Dry eyes Aspirin 81 mg 07/11/18 10:00 07/16/18 09:40 Aspirin Chewable PO 81 mg DAILY [facility] Administration Enoxaparin Sodium 40 mg 07/14/18 10:00 07/16/18 09:41 Lovenox SC 40 mg DAILY [facility] Administration Protocol Famotidine 20 mg 07/09/18 10:00 07/16/18 09:41 Pepcid IVP 20 mg DAILY [facility] Administration Dobutamine HCl/Dextrose 500 mg in 250 mls @ 5.545 mls/hr 07/14/18 14:52 07/14/18 15:16 Dobutamine/Dextrose 5% 500mg/250ml IV 2.5 mcg/kg/min .Q24H PRN 5.545 mls/hr TITRATE PER PROTOCOL Administration Protocol 2.5 MCG/KG/MIN - Patient Studies Lab Studies: Microbiology Studies 07/14/18 23:30 Gram Stain - Final Sputum Induced 07/11/18 13:30 Blood Culture - Preliminary Blood NO GROWTH AFTER 4 DAYS 07/11/18 13:00 Blood Culture - Preliminary Blood NO GROWTH AFTER 4 DAYS Lab Studies 07/16/18 07/16/18 07/15/18 Range/Units 05:45 05:45 07:45 WBC 12.6 H D (4.5-11.0) 10^3/uL RBC 3.76 (3.5-6.1) 10^6/uL Hgb 11.8 L (14.0-18.0) g/dL Hct 36.0 L (42.0-52.0) % MCV 95.7 (80.0-105.0) fl MCH 31.4 (25.0-35.0) pg MCHC 32.8 (31.0-37.0) g/dl RDW 12.4 (11.5-14.5) % Plt Count 198 (120.0-450.0) 10^3/uL MPV 9.7 (7.0-11.0) fl Neut % (Auto) 78.4 H (50.0-68.0) % Lymph % (Auto) 14.3 L (22.0-35.0) % Warrick % (Auto) 6.8 H (1.0-6.0) % Eos % (Auto) 0.4 L (1.5-5.0) % Baso % (Auto) 0.1 (0.0-3.0) % Lymph # (Auto) 1.8 (1.2-3.4) Warrick # (Auto) 0.9 H (0.1-0.6) Eos # (Auto) 0.1 (0.0-0.7) Baso # (Auto) 0.01 (0.0-2.0) K/mm3 Absolute Neuts (auto) 9.84 H (1.4-6.5) Sodium 144 (132-148) mmol/L Potassium 4.2 (3.6-5.0) mmol/L Chloride 108 H (98-107) mmol/L Carbon Dioxide 28 (21-33) mmol/L Anion Gap 13 (10-20) BUN 22 H (7-21) mg/dL Creatinine 0.8 (0.8-1.5) mg/dl Est GFR ( Amer) > 60 Est GFR (Non-Af Amer) > 60 Random Glucose 80 (70-110) mg/dL Calcium 9.3 (8.4-10.5) mg/dL Phosphorus 4.7 H (2.5-4.5) mg/dL Magnesium 2.3 H (1.7-2.2) mg/dL Total Bilirubin 1.5 H (0.2-1.3) mg/dL AST 59 (17-59) U/L ALT 64 H (7-56) U/L Alkaline Phosphatase 85 (38-126) U/L Total Protein 7.7 (5.8-8.3) g/dL Albumin 4.2 (3.0-4.8) g/dL Globulin 3.5 gm/dL Albumin/Globulin Ratio 1.2 (1.1-1.8) Hepatitis A IgM Ab (NEGATIVE) Hep Bs Antigen (NEGATIVE) Hep Bs Ag Neutralizatn Confirmed positive H Hep B Core IgM Ab (NEGATIVE) Hepatitis C Antibody (NEGATIVE) 04/23/19 Range/Units 07:45 WBC (4.5-11.0) 10^3/uL RBC (3.5-6.1) 10^6/uL Hgb (14.0-18.0) g/dL Hct (42.0-52.0) % MCV (80.0-105.0) fl MCH (25.0-35.0) pg MCHC (31.0-37.0) g/dl RDW (11.5-14.5) % Plt Count (120.0-450.0) 10^3/uL MPV (7.0-11.0) fl Neut % (Auto) (50.0-68.0) % Lymph % (Auto) (22.0-35.0) % Warrick % (Auto) (1.0-6.0) % Eos % (Auto) (1.5-5.0) % Baso % (Auto) (0.0-3.0) % Lymph # (Auto) (1.2-3.4) Warrick # (Auto) (0.1-0.6) Eos # (Auto) (0.0-0.7) Baso # (Auto) (0.0-2.0) K/mm3 Absolute Neuts (auto) (1.4-6.5) Sodium (132-148) mmol/L Potassium (3.6-5.0) mmol/L Chloride (98-107) mmol/L Carbon Dioxide (21-33) mmol/L Anion Gap (10-20) BUN (7-21) mg/dL Creatinine (0.8-1.5) mg/dl Est GFR ( Amer) Est GFR (Non-Af Amer) Random Glucose (70-110) mg/dL Calcium (8.4-10.5) mg/dL Phosphorus (2.5-4.5) mg/dL Magnesium (1.7-2.2) mg/dL Total Bilirubin (0.2-1.3) mg/dL AST (17-59) U/L ALT (7-56) U/L Alkaline Phosphatase (38-126) U/L Total Protein (5.8-8.3) g/dL Albumin (3.0-4.8) g/dL Globulin gm/dL Albumin/Globulin Ratio (1.1-1.8) Hepatitis A IgM Ab Negative (NEGATIVE) Hep Bs Antigen Reactive (NEGATIVE) Hep Bs Ag Neutralizatn Hep B Core IgM Ab Negative (NEGATIVE) Hepatitis C Antibody Negative (NEGATIVE) Laboratory Results - last 24 hr 07/15/18 07/15/18 07/16/18 07:45 07:45 05:45 WBC RBC Hgb Hct MCV MCH MCHC RDW Plt Count MPV Neut % (Auto) Lymph % (Auto) Warrick % (Auto) Eos % (Auto) Baso % (Auto) Lymph # (Auto) Warrick # (Auto) Eos # (Auto) Baso # (Auto) Absolute Neuts (auto) Sodium 144 Potassium 4.2 Chloride 108 H Carbon Dioxide 28 Anion Gap 13 BUN 22 H Creatinine 0.8 Est GFR ( Amer) > 60 Est GFR (Non-Af Amer) > 60 Random Glucose 80 Calcium 9.3 Phosphorus 4.7 H Magnesium 2.3 H Total Bilirubin 1.5 H AST 59 ALT 64 H Alkaline Phosphatase 85 Total Protein 7.7 Albumin 4.2 Globulin 3.5 Albumin/Globulin Ratio 1.2 Hepatitis A IgM Ab Negative Hep Bs Antigen Reactive Hep Bs Ag Neutralizatn Confirmed positive H Hep B Core IgM Ab Negative Hepatitis C Antibody Negative 07/16/18 05:45 WBC 12.6 H D RBC 3.76 Hgb 11.8 L Hct 36.0 L MCV 95.7 MCH 31.4 MCHC 32.8 RDW 12.4 Plt Count 198 MPV 9.7 Neut % (Auto) 78.4 H Lymph % (Auto) 14.3 L Warrick % (Auto) 6.8 H Eos % (Auto) 0.4 L Baso % (Auto) 0.1 Lymph # (Auto) 1.8 Warrick # (Auto) 0.9 H Eos # (Auto) 0.1 Baso # (Auto) 0.01 Absolute Neuts (auto) 9.84 H Sodium Potassium Chloride Carbon Dioxide Anion Gap BUN Creatinine Est GFR ( Amer) Est GFR (Non-Af Amer) Random Glucose Calcium Phosphorus Magnesium Total Bilirubin AST ALT Alkaline Phosphatase Total Protein Albumin Globulin Albumin/Globulin Ratio Hepatitis A IgM Ab Hep Bs Antigen Hep Bs Ag Neutralizatn Hep B Core IgM Ab Hepatitis C Antibody Fingerstick Blood Sugar Results: 87 Critical Care Progress Note - Nutrition Nutrition: Nutrition Category Date Time Status Pureed [Dysphagia/Modified Consistency Diet] [DIET] Diets 07/16/18 Lunch Ordered Assessment/Plan - Assessment and Plan (Free Text) Assessment: 48 yo M with unknown PMH who presented s/p VFib arrest (25 minutes of CPR) with subsequent targeted temperature management. He's had hypoxemic respiratory failure, failed weaning trial last but is now improved. Course is complicated by severe LV systolic dysfunction, dobutamine was started, and cardiology is following. Plan: Neuro: Patient tolerated bipap well overnight Patient passed swallow evaluation with recommendation of thin liquids, purred Patient continues to have difficulty with speech, will need additional speech therapy in addition to PT/OT MRI brain completed without concerning findings Neurology following, all recs appreciated Cardio: Maintaining MAP > 65 without pressor support HR remaining > 50 on dobutamine drip Continue daily ASA, may start ACEI if tolerating pills Plan per cardio is for cath tomorrow Would not consider ICD placement until repeat TTE 6 months after cardiac arrest Cardiology following, all recs appreciated Pulm: Patient tolerated bipap well overnight Recommend to continue nighly bipap 02/27, FiO2 of 40% Continue supplemental O2 NC PRN No other signs of respiratory distress Endo: Random glucose: 80 Maintain euglycemia GI: Patient's swallowing exam improved from yesterday May start on purred, thin liquid diet per speech/swallow therapist recs Will need additional speech therapy /Nephro: Renal function parameters stable Contraction alkalosis improving Continue strict I & O Replete electrolytes PRN Heme/Onc: H/H stable, no signs of acute blood loss Continue serial H/H monitoring ID: Remains afebrile but with new leukocytosis from yesterday Abx were discontinued per ID recs, continue to monitor WBC ID following, all recs appreciated DVT/GI PPX: Lovenox/pepcid Full Code Purred, thin liquid diet Transfer to telemetry Patient seen, examined with, and plan confirmed with my attending Dr. Wei Garibay D.O. IM Resident PGY-1 Pager: [phone]
[2018-07-16] MEDS: DOBUTamine 500mg/250ml D5W 500 MG/250 ML BAG IV PRN (15:20)
--- NOTE | 2018-07-16 23:59 | PN ---
DATE: 07/16/2018 SUBJECTIVE: The patient is in bed, in no acute distress. He was seen in the ICU 128, bed 4. The patient is comfortable, is extubated. PHYSICAL EXAMINATION: VITAL SIGNS: Temperature is 98, blood pressure is 140/90, respiratory rate of 24, heart rate of 80. HEENT: Unremarkable. NECK: Supple. LUNGS: Have decreased breath sounds. HEART: Normal S1, S2. ABDOMEN: Soft. LABORATORY EXAMINATION: Reveals a white count of 12,600, hemoglobin of 11. Chemistries reveal a BUN of 22, creatinine of 0.8. Urinalysis is noted. Toxicology is reviewed. Serology is noted. Hepatitis B surface antigen is positive. Blood cultures are negative. Nares are negative. Sputum is pending. The patient is on amiodarone, dobutamine, Lovenox, off of antibiotics. ASSESSMENT AND PLAN: This is a 48-year-old male who was seen earlier in the intensive care unit 128, bed 4, now extubated, has cardiac arrest, received antibiotics. Currently now off of antibiotics, extubated. Does have mild cytosis. We will follow with you. Ever Miller MD
[2018-07-17 07:15] LABS: BASO # 0.01 K/mm3 (0.0-2.0); BASO % 0.1 % (0.0-3.0); EOS % 0.2 % (1.5-5.0); HEMOGLOBIN 12.7 g/dL (14.0-18.0); LYMPH # 1.7 (1.2-3.4); LYMPH % 9.3 % (22.0-35.0); MEAN CORPUSCULAR HEMOGLOBIN 31.4 pg (25.0-35.0); MEAN CORPUSCULAR HGB CONC 32.7 g/dl (31.0-37.0); MEAN PLATELET VOLUME 10.6 fl (7.0-11.0); MONO % 5.3 % (1.0-6.0); RBC 4.04 10^6/uL (3.5-6.1); RED CELL DISTRIBUTION WIDTH 12.7 % (11.5-14.5)
[2018-07-17 07:33] LABS: ALB/GLOB RATIO 1.2 (1.1-1.8); ALBUMIN 4.3 g/dL (3.0-4.8); ALT/SGPT 67 U/L (7-56); AST/SGOT 63 U/L (17-59); BLOOD UREA NITROGEN 27 mg/dL (7-21); CALCIUM 9.4 mg/dL (8.4-10.5); GFR NON-AFRICAN AMERICAN > 60
[2018-07-17] MEDS: Enoxaparin 40 mg Syringe SC SCH (09:26)
--- NOTE | 2018-07-17 12:33 | PN ---
DATE: 07/17/2018 CARDIOLOGY FOLLOWUP SUBJECTIVE: The patient is lethargic, unable to fully comprehend, giving consent for a cardiac catheterization. OBJECTIVE: VITAL SIGNS: Blood pressure 129/90, heart rate in the 80s. NECK: Negative JVD. LUNGS: Decreased breath sounds without rales. HEART: S1 and S2. EXTREMITIES: Without edema. LABORATORY DATA: BUN and creatinine is 27 and 0.9. Hemoglobin is 12.7. IMPRESSION: 1. Status post ventricular fibrillation arrest. 2. Status post syncope. 3. 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 4. Dilated cardiomyopathy. PLAN: Given these findings, the patient's mental status prevents him from understanding the risks, benefits of cardiac catheterization, we will cancel his procedure today. We will discontinue his dobutamine today and start on lisinopril and beta blockers. Kelby Guerrero MD
[2018-07-17] MEDS: Divalproex 500 mg DR(BID formulation) PO SCH ×2 (12:56→17:39)
--- NOTE | 2018-07-17 13:40 | CP.PCM.PN ---
<Jimmy Angel - Last Filed: 07/17/18 13:36> Subjective - Date & Time of Evaluation Date of Evaluation: 07/17/18 Time of Evaluation: 08:30 - Subjective Subjective: INTERNAL MEDICINE PROGRESS NOTE FOR DR. ABBI Angel PGY1 Pt seen and examined at bedside this am. No acute events overnight. Pt was verbal, however appeared confused. He was unable to provide an ROS Objective - Vital Signs/Intake and Output Vital Signs (last 24 hours): Temp Pulse Resp BP Pulse Ox 99 F 84 18 119/79 100 07/17/18 12:00 07/17/18 12:57 07/17/18 12:00 07/17/18 12:57 07/17/18 06:00 Intake and Output: 07/17/18 07/17/18 06:59 18:59 Intake Total 66 Balance 66 - Medications Medications: Current Medications Amiodarone HCl (Cordarone) 400 mg PO DAILY [facility] Last Admin: 07/17/18 09:25 Dose: 400 mg Artificial Tears (Puralube Opht Oint) 1 appl OU Q4H PRN PRN Reason: Dry eyes Artificial Tears (Refresh Opth Soln) 0.3 ml OU Q4H PRN PRN Reason: Dry eyes Last Admin: 07/09/18 10:37 Dose: 2 d Aspirin (Aspirin Chewable) 81 mg PO DAILY [facility] Last Admin: 07/17/18 09:26 Dose: 81 mg Carvedilol (Coreg) 12.5 mg PO BID [facility] Last Admin: 07/17/18 12:57 Dose: 12.5 mg Divalproex Sodium (Kobe Levin(*Bid*)) 1,000 mg PO BID [facility] Last Admin: 07/17/18 12:56 Dose: 1,000 mg Enoxaparin Sodium (Lovenox) 40 mg SC DAILY [facility]; Protocol Last Admin: 07/17/18 09:26 Dose: 40 mg Famotidine (Pepcid) 20 mg IVP DAILY [facility] Last Admin: 07/17/18 09:26 Dose: 20 mg Lisinopril (Zestril) 5 mg PO DAILY [facility] Last Admin: 07/17/18 12:56 Dose: 5 mg - Labs Labs: 07/17/18 07:00 07/17/18 07:00 PT 12.7 SECONDS (9.4-12.5) H 07/09/18 21:10 INR 1.14 07/09/18 21:10 APTT 50.0 Seconds (26.9-38.3) H 07/12/18 04:00 - Constitutional Appears: Well, Non-toxic, No Acute Distress - Head Exam Head Exam: NORMAL INSPECTION, NORMOCEPHALIC - Eye Exam Eye Exam: EOMI, Normal appearance Pupil Exam: Irregular (R>L), PERRL - ENT Exam ENT Exam: Mucous Membranes Dry, Normal Exam - Neck Exam Neck Exam: Normal Inspection - Respiratory Exam Respiratory Exam: NORMAL BREATHING PATTERN - Cardiovascular Exam Cardiovascular Exam: REGULAR RHYTHM, +S1, +S2 - GI/Abdominal Exam GI & Abdominal Exam: Soft, Normal Bowel Sounds - Extremities Exam Extremities Exam: Normal Inspection. absent: Calf Tenderness - Back Exam Back Exam: NORMAL INSPECTION - Neurological Exam Neurological Exam: Alert, Awake - Psychiatric Exam Psychiatric exam: Normal Affect - Skin Skin Exam: Dry, Intact, Warm Assessment and Plan - Assessment and Plan (Free Text) Assessment: 48 year old male presented to the emergency department, with unknown past medical history brought in by ambulance after a witnessed cardiac arrest with ventricular fibrillation. s/p CPR for 25 minutes, 3x epinephrines, 2 narcans, 5 shocks and 3x Amiodarone in the field. Pt achieved ROSC and was taken off code freeze w/ in 72 hours. Pt monitored in ICU, subsequently extubated and transferred to telemetry. Plan: AMS 2/2 cardiac arrest - r/o anoxic brain injury - Current awake and alert, obeys commands, however generally non-verbal. Speaks few words. - continue depakote per neuro recs - pending Neuro re-evaluation - Brain MRI (07/11): no acute intracranial findings - Head CT (07/10): "No acute abnormalities. No significant findinsg to account for clinical presentation. No significant interval change compared to prior examination. Head CT (07/08): Supobtimal diagnostic quality due to extensive beam hardening artifacts patient motion. Allowing for this, no acute intracranial abnormalities. - Video EEG 07/11: Moderate to severe non specific diffuse disturbance of [place] ical activity, in keeping with a diffuse chase matter dysfunction. The findings do not suggest a specific etiology Cardiac Arrest in the setting of ventricular fibrillation s/p ROSC - s/p witnessed cardiac arrest with ventricular fibrillation. s/p CPR for 25 minutes, 3x epinephrine, 2x narcan, 5 shocks & 3x Amiodarone. Approximate downtime 25minutes. s/p code freeze completed at 5:30 pm 07/09 - Dobutamine gtt discontinued by spar cap beveler. Started on carvedilol 12.5 & lis inopril 5mg - Continue oral amiodarone 400mg per cardio recs. - Pt was initially scheduled for cardiac cath however pt is unable to understand risks/benefits of the procedure and provide consent. - Urine tox: (+) opioids and cannibinoids - Hemoglobin A1C - 5.0 - lipid panel - Chol 184, LDL - 84, HDL - 85 - TSH/T4 - TSH = 6.37, T4 = wnl NSTEMI - initial EKG showed NSR @ 68. L axis deviation, Initial troponins 07/08:0.06, 07/08:9.05, 07/09:7.6. - Heparin started x 5d. Hgb dropped from 13.5 to 11.2. Hep discontinued on 07/13 & switched to lovenox 40sc daily on 07/13 - cardiac cath pending improvement in neurological status Severe cardiomyopathy w/ reduced EF in the setting of cardiac arrest - Echo: LVEF of 13%, left ventricle is normal size, normal left ventricular wall thickness, systolic function is severely impaired, significant regional wall motion abnormalities noted, mitral regurgitation is mild to moderate, trace aortic regurgitation. - CXR 07/14: No significant interval changes noted since the prior exam - Heparin discontinued. CXR, physical not revealing signs of fluid overload, diuretics not required at the moment. No longer on dobutamine gtt - cardiology pending. Severe sepsis w/ VDRF 04/26 aspiration pneumonia - Resolved. Remains afebrile, Normotensive. Leukocytosis resolved - MRSA Screen (-). Vancomycin discontinued - CXR 07/14: No acute abnormalities. Procalcitonin 07/10: 5.90, 07/08: <0.05, 07/14: 0.18 - continue docycycline (07/09)/zosyn(07/10) per ID recs - pancultures negative thus far. Ur L. pneumophilia ag 07/09: (-). f/u s. pneumo Ag - ID following Hepatis B HepBsAg (+). Confirmed positive with HepBsAg neutralization GI/DVT PPx: Pepcid/lovenox Dispo: -Palliative care consulted. Will attempt to establish goals of care from family/POA- -Pt tolerating puree diet/thin liquid diet - Spoke with family member, Jessica Denson @11:22am today. She was updated on clinical and neurological status of pt. She reports she had seen pt on 07/08/18. All questions were answered during conversation. Case reviewed with attending physician, Dr. Carmela nAgel PGY1 <Carmela Walker R - Last Filed: 07/18/18 12:26> Objective - Vital Signs/Intake and Output Vital Signs (last 24 hours): Temp Pulse Resp BP Pulse Ox 98.2 F 85 19 116/85 94 L 07/18/18 06:00 07/18/18 09:34 07/18/18 06:00 07/18/18 09:34 07/18/18 06:00 Intake and Output: 07/18/18 07/18/18 06:59 18:59 Intake Total 560 0 Output Total 2 Balance 560 -2 - Medications Medications: Current Medications Amiodarone HCl (Cordarone) 400 mg PO DAILY [facility] Last Admin: 07/18/18 09:33 Dose: 400 mg Artificial Tears (Puralube Opht Oint) 1 appl OU Q4H PRN PRN Reason: Dry eyes Artificial Tears (Refresh Opth Soln) 0.3 ml OU Q4H PRN PRN Reason: Dry eyes Last Admin: 07/09/18 10:37 Dose: 2 d Aspirin (Aspirin Chewable) 81 mg PO DAILY [facility] Last Admin: 07/18/18 09:34 Dose: 81 mg Carvedilol (Coreg) 12.5 mg PO BID [facility] Last Admin: 07/18/18 09:34 Dose: 12.5 mg Divalproex Sodium (Depakote Dr(*Bid*)) 1,000 mg PO BID [facility] Last Admin: 07/18/18 09:40 Dose: 1,000 mg Enoxaparin Sodium (Lovenox) 40 mg SC DAILY [facility]; Protocol Last Admin: 07/18/18 09:35 Dose: 40 mg Famotidine (Pepcid) 20 mg IVP DAILY [facility] Last Admin: 07/18/18 09:36 Dose: 20 mg Lisinopril (Zestril) 5 mg PO DAILY [facility] Last Admin: 07/18/18 09:34 Dose: 5 mg - Labs Labs: 07/18/18 07:10 07/18/18 07:10 PT 12.7 SECONDS (9.4-12.5) H 07/09/18 21:10 INR 1.14 07/09/18 21:10 APTT 50.0 Seconds (26.9-38.3) H 07/12/18 04:00 Attending/Attestation - Attestation I have personally seen and examined this patient.: Yes I have fully participated in the care of the patient.: Yes I have reviewed all pertinent clinical information, including history, physical exam and plan: Yes Notes (Text): Patient seen and examined by me with resident at approximately 9:25AM on 07/17/18. Case including HPI, physical exam, and assessment and plan discussed with resident. Agree with above with following additions/corrections. Patient is a 48 year old male with unknown past medical history that presented to the emergency room s/p cardiac arrest and ventricular fibrillation. Patient awake and alert. Talks but speech does not make sense. Denies pain. Patient is able to follow some commands. Afebrile. Patient was transferred out of ICU. Physical exam: General: Awake and alert sitting up in bed in no acute distress HEENT: Normocephalic, atraumatic. Extraocular muscles intact. Pupils equal and reactive, no scleral icterus. Oropharynx is pink. No pharyngeal erythema or exudate appreciated. Neck is supple. Cardiovascular: Normal rhythm. Normal S1 and S2. No murmurs, rubs, or gallops appreciated Pulmonary: Normal respiratory effort. No rhonchi, rales, or wheezing appreciated Gastrointestinal: Soft, nondistended. Nontender. Positive bowel sounds all 4 quadrants. No guarding. Musculoskeletal: Moves all extremities. No calf tenderness. No edema appreciated. Central nervous system: Awake and alert. Able to follow some commands. Speech does not make sense. Dermatologic: Skin warm and dry. Assessment and plan: Patient is a 48 year old male with unknown past medical history that presented to the emergency room s/p cardiac arrest and ventricular fibrillation. 1. S/P V-fib arrest. S/P hypothermia protocol. NSTEMI. Dilated cardiomyopathy. Cardiology recommendations appreciated. S/P heparin drip. Continue amiodarone. Continue ASA. Dobutamine drip stopped. Started on Lisinopril and Coreg. Cardiac cath canceled secondary to mental status. Troponins were 0.06, then 9.05, then 7.60. 2D echo per spar cap beveler showed LVEF of 13%, left ventricle is normal size, normal left ventricular wall thickness, systolic function is severely impaired, significant regional wall motion abnormalities noted, mitral regurgitation is mild to moderate, trace aortic regurgitation. 2. S/P severe sepsis secondary to aspiration pneumonia. ID recommendations appreciated. S/P treatment with Doxcycline and Zosyn. Remains afebrile. Leukocytosis uptrending, unclear etiology. Blood and urine cultures with no growth. Procalcitonin was <0.05, then 5.90, and then 0.18. CT chest/abdomen/pelvis per radiologist on 07/08/2018 showed findings in the lung may represent pulmonary edema or aspiration pneumonitis, moderate bilateral pleural effusions, no acute findings in the abdomen or pelvis; fluid filled distended stomach, fluid in the small bowel loops, and fluid filled mildly distended colon. 3. S/P Vent dependent respiratory failure. S/P extubation 07/15/18. Speech and swallow following. Placed on dysphagia diet. Continue aspiration precautions. 4. Acute anoxic encephalopathy. Neurology recommendations appreciated. Patient following commands but speech does not make sense. Continue seizure precautions. Started on Depakote by neurology team. Continue supportive care. Head CT 07/10/18 per radiologist showed no acute intracranial abnormalities. Brain MRI per radiologist showed no acute cranial findings. Continue neurochecks. EEG per neurologist showed moderate to severe nonspecific diffuse disturbance of c ortical activity, in keeping with the diffuse chase matter dysfunction; findings do not suggest a specific etiology. 5. Transaminitis. Stable. Continue to monitor. 6. Drug abuse. Urine drug screen positive for opioids and cannabinoids. 7. GI/DVT prophylaxis. Pepcid/Lovenox. 8. Palliative care following
--- NOTE | 2018-07-17 21:33 | PN ---
DATE: 07/17/2018 SUBJECTIVE: The patient is seen in 261, bed 1. The patient is awake and alert, doing well. No fevers, no chills. PHYSICAL EXAMINATION: VITAL SIGNS: Temperature is 98, T-max is 99, blood pressure is 115/90, respiratory rate 18. HEENT: Unremarkable. NECK: Supple. LUNGS: Decreased breath sounds. HEART: Normal S1 and S2. ABDOMEN: Soft. . LABORATORY DATA: Laboratory examination reveals a white count of 18,000, hemoglobin of 12, platelets of 271, BUN of 27, creatinine of 0.9, procalcitonin 0.18. Urinalysis is noted. Microbiology is reviewed. Review of orders reveals the patient to be off of antibiotics. ASSESSMENT AND PLAN: This is a 48-year-old male who was seen earlier today in 261, bed 1, admitted with acute mental status, cardiac arrest, anoxic brain injury. Currently, the patient is awake and is responsive, speaks a few words, with a non-ST elevation myocardial infarction, severe cardiomyopathy. Dr. Kelby Guerrero's note is reviewed, status post ventricular fibrillation arrest. Off of antibiotics. Does have leukocytosis. The etiology is not clear. We will repeat a CBC in a.m. and if it persists, we will order a complete workup. He is not appearing toxic. Ever Miller MD
[2018-07-18 07:22] LABS: BASO # 0.02 K/mm3 (0.0-2.0); BASO % 0.1 % (0.0-3.0); EOS % 0.2 % (1.5-5.0); HEMOGLOBIN 14.1 g/dL (14.0-18.0); LYMPH # 1.7 (1.2-3.4); LYMPH % 9.2 % (22.0-35.0); MEAN CELL VOLUME 96.4 fl (80.0-105.0); MEAN CORPUSCULAR HGB CONC 33.3 g/dl (31.0-37.0); MEAN PLATELET VOLUME 10.1 fl (7.0-11.0); MONO % 5.2 % (1.0-6.0); RBC 4.4 10^6/uL (3.5-6.1); RED CELL DISTRIBUTION WIDTH 12.8 % (11.5-14.5); WHITE BLOOD COUNT 18.5 10^3/uL (4.5-11.0)
--- NOTE | 2018-07-18 07:32 | CP.PCM.PN ---
<Frankie Molina Iris - Last Filed: 07/18/18 07:29> Subjective - Date & Time of Evaluation Date of Evaluation: 07/17/18 Time of Evaluation: 09:00 - Subjective Subjective: Neurology progress note - Tracy PGY - 2 Patient seen and examined at bedside. No acute overnight events. Patient is mildly aphasic, so obtaining a history is difficult. Objective - Vital Signs/Intake and Output Vital Signs (last 24 hours): Temp Pulse Resp BP Pulse Ox 98.2 F 85 19 116/82 94 L 07/18/18 06:00 07/18/18 06:00 07/18/18 06:00 07/18/18 06:00 07/18/18 06:00 Intake and Output: 07/18/18 07/18/18 06:59 18:59 Intake Total 560 Balance 560 - Medications Medications: Current Medications Amiodarone HCl (Cordarone) 400 mg PO DAILY [facility] Last Admin: 07/17/18 09:25 Dose: 400 mg Artificial Tears (Puralube Opht Oint) 1 appl OU Q4H PRN PRN Reason: Dry eyes Artificial Tears (Refresh Opth Soln) 0.3 ml OU Q4H PRN PRN Reason: Dry eyes Last Admin: 07/09/18 10:37 Dose: 2 d Aspirin (Aspirin Chewable) 81 mg PO DAILY [facility] Last Admin: 07/17/18 09:26 Dose: 81 mg Carvedilol (Coreg) 12.5 mg PO BID [facility] Last Admin: 07/17/18 17:40 Dose: 12.5 mg Divalproex Sodium (Depakote Dr(*Bid*)) 1,000 mg PO BID [facility] Last Admin: 07/17/18 17:39 Dose: 1,000 mg Enoxaparin Sodium (Lovenox) 40 mg SC DAILY [facility]; Protocol Last Admin: 07/17/18 09:26 Dose: 40 mg Famotidine (Pepcid) 20 mg IVP DAILY [facility] Last Admin: 07/17/18 09:26 Dose: 20 mg Lisinopril (Zestril) 5 mg PO DAILY [facility] Last Admin: 07/17/18 12:56 Dose: 5 mg - Labs Labs: 07/17/18 07:00 07/17/18 07:00 PT 12.7 SECONDS (9.4-12.5) H 07/09/18 21:10 INR 1.14 07/09/18 21:10 APTT 50.0 Seconds (26.9-38.3) H 07/12/18 04:00 - Constitutional Appears: Well - Head Exam Head Exam: ATRAUMATIC, NORMAL INSPECTION, NORMOCEPHALIC - Eye Exam Eye Exam: EOMI, Normal appearance, PERRL Pupil Exam: NORMAL ACCOMODATION, PERRL - ENT Exam ENT Exam: Mucous Membranes Moist, Normal Exam - Neck Exam Neck Exam: Full ROM, Normal Inspection. absent: Lymphadenopathy - Respiratory Exam Respiratory Exam: Clear to Ausculation Bilateral, NORMAL BREATHING PATTERN - Cardiovascular Exam Cardiovascular Exam: REGULAR RHYTHM, +S1, +S2. absent: Murmur - GI/Abdominal Exam GI & Abdominal Exam: Soft, Normal Bowel Sounds. absent: Tenderness - Extremities Exam Extremities Exam: Full ROM, Normal Capillary Refill, Normal Inspection. absent: Joint Swelling, Pedal Edema - Back Exam Back Exam: NORMAL INSPECTION - Neurological Exam Neurological Exam: Alert, Awake, CN II-XII Intact, Normal Gait, Oriented x3 - Psychiatric Exam Psychiatric exam: Normal Affect, Normal Mood - Skin Skin Exam: Dry, Intact, Normal Color, Warm Assessment and Plan - Assessment and Plan (Free Text) Assessment: 48 year old black male with an unknown medical history who sustained a witnessed cardiac arrest in the field; CPR was conducted for 25 minutes with the utilization of epinephrine, narcan, amiodarone, and defibrillation. ROSC was obtained. Patient has finished receiving therapeutic hypothermia for 24 hours and has been rewarmed. He is extubated and is on the telemetry floor, is alert and oriented, and is moving all four extremities freely, but is displaying signs of aphasia. Patient is able to follow commands but is having difficulty with repetition and formation of words. There is also a component of 'word salad,' but with in-tact comprehension, this is most likely an injury to the arcuate fasciculus. Acute anoxic encephalopathy - Patient will need speech and physical therapy - Video EEG showed sharp waves; we will start him on Depakote daily <James Jones - Last Filed: 07/28/18 20:57> Objective - Vital Signs/Intake and Output Vital Signs (last 24 hours): Temp Pulse Resp BP Pulse Ox 98.2 F 66 18 118/78 98 07/28/18 08:06 07/28/18 09:28 07/28/18 08:06 07/28/18 09:28 07/28/18 08:06 - Medications Medications: Current Medications Amiodarone HCl (Cordarone) 400 mg PO BRKDIN [facility] Last Admin: 07/28/18 09:27 Dose: 400 mg Artificial Tears (Puralube Opht Oint) 1 appl OU Q4H PRN PRN Reason: Dry eyes Last Admin: 07/19/18 18:00 Dose: 1 drop Artificial Tears (Refresh Opth Soln) 0.3 ml OU Q4H PRN PRN Reason: Dry eyes Last Admin: 07/09/18 10:37 Dose: 2 d Aspirin (Ecotrin) 81 mg PO DAILY [facility] Last Admin: 07/28/18 09:28 Dose: 81 mg Carvedilol (Coreg) 6.25 mg PO BID [facility] Last Admin: 07/28/18 09:27 Dose: 6.25 mg Enoxaparin Sodium (Lovenox) 40 mg SC DAILY [facility]; Protocol Last Admin: 07/28/18 09:29 Dose: Not Given Famotidine (Pepcid) 20 mg PO DAILY [facility] Last Admin: 07/28/18 09:27 Dose: 20 mg Lisinopril (Zestril) 5 mg PO DAILY [facility] Last Admin: 07/28/18 09:28 Dose: 5 mg Valproate Sodium (Depakene Oral Soln) 1,000 mg PO Q12 [facility] Last Admin: 07/28/18 09:28 Dose: 1,000 mg - Labs Labs: 07/24/18 06:00 07/24/18 06:00 PT 12.7 SECONDS (9.4-12.5) H 07/09/18 21:10 INR 1.14 07/09/18 21:10 APTT 50.0 Seconds (26.9-38.3) H 07/12/18 04:00 Assessment and Plan - Assessment and Plan (Free Text) Assessment: All medical record entries made by the S\were at my direction and personally d ictated by me. I have reviewed the chart and agree that the record accurately reflects my personal performance of the history, physical exam, medical decision making, and the department course for this patient. I have also personally directed, reviewed, and agree with the discharge instructions and disposition. Patient with ANoxic encephalopathy and interictal discharges that show a pr opensity for epilepsy. We will start him on depakote and recomend speech therapy. Dr.Dr. jones Neurology
[2018-07-18 07:40] LABS: ALB/GLOB RATIO 1.1 (1.1-1.8); ALBUMIN 4.3 g/dL (3.0-4.8); ALT/SGPT 53 U/L (7-56); AST/SGOT 55 U/L (17-59); BLOOD UREA NITROGEN 30 mg/dL (7-21); CALCIUM 9.3 mg/dL (8.4-10.5); GFR NON-AFRICAN AMERICAN > 60
[2018-07-18] MEDS: Enoxaparin 40 mg Syringe SC SCH (09:35)
[2018-07-18] MEDS: Divalproex 500 mg DR(BID formulation) PO SCH (09:40)
--- NOTE | 2018-07-18 13:52 | CP.PCM.PN ---
<Jimmy Angel - Last Filed: 07/18/18 13:41> Subjective - Date & Time of Evaluation Date of Evaluation: 07/18/18 Time of Evaluation: 09:00 - Subjective Subjective: INTERNAL MEDICINE PROGRESS NOTE FOR DR. ABBI Angel PGY1 Pt seen and examined at bedside. No acute events overnight. Pt appears confused this am. His is not tolerating his diet, drooling. He responds verbally, however minimal. He obeys some commands including squeezing hands and moving feet. ROS unable to be obtained Objective - Vital Signs/Intake and Output Vital Signs (last 24 hours): Temp Pulse Resp BP Pulse Ox 98.1 F 103 H 22 121/87 94 L 07/18/18 12:00 07/18/18 12:00 07/18/18 12:00 07/18/18 12:00 07/18/18 06:00 Intake and Output: 07/18/18 07/18/18 06:59 18:59 Intake Total 560 0 Output Total 2 Balance 560 -2 - Medications Medications: Current Medications Amiodarone HCl (Cordarone) 400 mg PO DAILY [facility] Last Admin: 07/18/18 09:33 Dose: 400 mg Artificial Tears (Puralube Opht Oint) 1 appl OU Q4H PRN PRN Reason: Dry eyes Artificial Tears (Refresh Opth Soln) 0.3 ml OU Q4H PRN PRN Reason: Dry eyes Last Admin: 07/09/18 10:37 Dose: 2 d Aspirin (Aspirin Chewable) 81 mg PO DAILY [facility] Last Admin: 07/18/18 09:34 Dose: 81 mg Carvedilol (Coreg) 12.5 mg PO BID [facility] Last Admin: 07/18/18 09:34 Dose: 12.5 mg Divalproex Sodium (Depakote Dr(*Bid*)) 1,000 mg PO BID [facility] Last Admin: 07/18/18 09:40 Dose: 1,000 mg Enoxaparin Sodium (Lovenox) 40 mg SC DAILY [facility]; Protocol Last Admin: 07/18/18 09:35 Dose: 40 mg Famotidine (Pepcid) 20 mg IVP DAILY [facility] Last Admin: 07/18/18 09:36 Dose: 20 mg Lisinopril (Zestril) 5 mg PO DAILY [facility] Last Admin: 07/18/18 09:34 Dose: 5 mg - Labs Labs: 07/18/18 07:10 07/18/18 07:10 PT 12.7 SECONDS (9.4-12.5) H 07/09/18 21:10 INR 1.14 07/09/18 21:10 APTT 50.0 Seconds (26.9-38.3) H 07/12/18 04:00 - Constitutional Appears: Well, Non-toxic, No Acute Distress - Head Exam Head Exam: NORMAL INSPECTION, NORMOCEPHALIC - Eye Exam Eye Exam: EOMI, Normal appearance Pupil Exam: Irregular (R>L), PERRL - ENT Exam ENT Exam: Mucous Membranes Dry, Normal Exam - Neck Exam Neck Exam: Normal Inspection - Respiratory Exam Respiratory Exam: NORMAL BREATHING PATTERN - Cardiovascular Exam Cardiovascular Exam: REGULAR RHYTHM, +S1, +S2 - GI/Abdominal Exam GI & Abdominal Exam: Soft, Normal Bowel Sounds - Extremities Exam Extremities Exam: Normal Inspection. absent: Calf Tenderness - Back Exam Back Exam: NORMAL INSPECTION - Neurological Exam Neurological Exam: Alert, Awake - Psychiatric Exam Psychiatric exam: Normal Affect - Skin Skin Exam: Dry, Intact, Warm Assessment and Plan - Assessment and Plan (Free Text) Assessment: 48 year old male presented to the emergency department, with unknown past medical history brought in by ambulance after a witnessed cardiac arrest with ventricular fibrillation. s/p CPR for 25 minutes, 3x epinephrines, 2 narcans, 5 shocks and 3x Amiodarone in the field. Pt achieved ROSC and was taken off code freeze w/ in 72 hours. Pt monitored in ICU, subsequently extubated and transferred to telemetry. Plan: AMS 2/2 cardiac arrest - likely 2/2 anoxic brain injury - Current awake and alert, obeys commands, however generally non-verbal. Speaks few words. - continue depakote per neuro recs - pending Neuro re-evaluation - Will start aspiration precautions - Brain MRI (07/11): no acute intracranial findings - Head CT (07/10): "No acute abnormalities. No significant findings to account for clinical presentation. No significant interval change compared to prior examination. Head CT (07/08): Supobtimal diagnostic quality due to extensive beam hardening artifacts patient motion. Allowing for this, no acute intracranial abnormalities. - Video EEG 07/11: Moderate to severe non specific diffuse disturbance of cortical activity, in keeping with a diffuse chase matter dysfunction. The findings do not suggest a specific etiology Cardiac Arrest in the setting of ventricular fibrillation s/p ROSC - s/p witnessed cardiac arrest with ventricular fibrillation. s/p CPR for 25 minutes, 3x epinephrine, 2x narcan, 5 shocks & 3x Amiodarone. Approximate downtime 25minutes. s/p code freeze completed at 5:30 pm 07/09 - Continue on carvedilol 12.5mg & lisinopril 5mg - Continue oral amiodarone 400mg per cardio recs. - Pt was initially scheduled for cardiac cath however pt is unable to understand risks/benefits of the procedure and provide consent. - Urine tox: (+) opioids and cannibinoids - Hemoglobin A1C - 5.0 - lipid panel - Chol 184, LDL - 84, HDL - 85 - TSH/T4 - TSH = 6.37, T4 = wnl NSTEMI - initial EKG showed NSR @ 68. L axis deviation, Initial troponins 07/08:0.06, 07/08:9.05, 07/09:7.6. - Heparin started x 5d. Hgb dropped from 13.5 to 11.2. Hep discontinued on 07/13 & switched to lovenox 40sc daily on 07/13 - cardiac cath pending improvement in neurological status Severe cardiomyopathy w/ reduced EF in the setting of cardiac arrest - Echo: LVEF of 13%, left ventricle is normal size, normal left ventricular wall thickness, systolic function is severely impaired, significant regional wall motion abnormalities noted, mitral regurgitation is mild to moderate, trace aortic regurgitation. - CXR 07/14: No significant interval changes noted since the prior exam - Heparin discontinued. CXR, physical not revealing signs of fluid overload, diuretics not required at the moment. No longer on dobutamine gtt - cardiology recs pending Hepatis B HepBsAg (+). Confirmed positive with HepBsAg neutralization GI/DVT PPx: Pepcid/lovenox Dispo: - PT recommending ARGENIS. Pending placements - NPO as pt unable to tolerate diet. Start aspiration precautions. F/u repeat swallow eval today - Spoke with family member, Jessica Denson @11:22am 07/17. She was updated on clinical and neurological status of pt. She reports she had seen pt on 07/08/18. All questions were answered during conversation. Case reviewed with attending physician, Dr. Carmela Angel PGY1 <Carmela Walker R - Last Filed: 07/18/18 15:47> Objective - Vital Signs/Intake and Output Vital Signs (last 24 hours): Temp Pulse Resp BP Pulse Ox 98.1 F 103 H 22 121/87 94 L 07/18/18 12:00 07/18/18 12:00 07/18/18 12:00 07/18/18 12:00 07/18/18 06:00 Intake and Output: 07/18/18 07/18/18 06:59 18:59 Intake Total 560 0 Output Total 2 Balance 560 -2 - Medications Medications: Current Medications Amiodarone HCl (Cordarone) 400 mg PO DAILY [facility] Last Admin: 07/18/18 09:33 Dose: 400 mg Artificial Tears (Puralube Opht Oint) 1 appl OU Q4H PRN PRN Reason: Dry eyes Artificial Tears (Refresh Opth Soln) 0.3 ml OU Q4H PRN PRN Reason: Dry eyes Last Admin: 07/09/18 10:37 Dose: 2 d Aspirin (Aspirin Chewable) 81 mg PO DAILY [facility] Last Admin: 07/18/18 09:34 Dose: 81 mg Carvedilol (Coreg) 12.5 mg PO BID [facility] Last Admin: 07/18/18 09:34 Dose: 12.5 mg Divalproex Sodium (Depakote Dr(*Bid*)) 1,000 mg PO BID [facility] Last Admin: 07/18/18 09:40 Dose: 1,000 mg Enoxaparin Sodium (Lovenox) 40 mg SC DAILY [facility]; Protocol Last Admin: 07/18/18 09:35 Dose: 40 mg Famotidine (Pepcid) 20 mg IVP DAILY [facility] Last Admin: 07/18/18 09:36 Dose: 20 mg Lisinopril (Zestril) 5 mg PO DAILY [facility] Last Admin: 07/18/18 09:34 Dose: 5 mg - Labs Labs: 07/18/18 07:10 07/18/18 07:10 PT 12.7 SECONDS (9.4-12.5) H 07/09/18 21:10 INR 1.14 07/09/18 21:10 APTT 50.0 Seconds (26.9-38.3) H 07/12/18 04:00 Attending/Attestation - Attestation I have personally seen and examined this patient.: Yes I have fully participated in the care of the patient.: Yes I have reviewed all pertinent clinical information, including history, physical exam and plan: Yes Notes (Text): Patient seen and examined by me with resident at approximately 9:30AM on 07/18/18. Case including HPI, physical exam, and assessment and plan discussed wi th resident. Agree with above with following additions/corrections. Patient is a 48 year old male with unknown past medical history that presented to the emergency room s/p cardiac arrest and ventricular fibrillation. Patient awake and alert. Patient is able to say he has pain in his legs. Patient is not swallowing his food. Patient with food in his mouth at time of exam. Patient is able to follow some commands. Afebrile. Physical exam: General: Awake and alert sitting up in bed in no acute distress HEENT: Normocephalic, atraumatic. Extraocular muscles intact. Pupils equal and reactive, no scleral icterus. Oropharynx is pink. Food in mouth. Neck is supple. Cardiovascular: Normal rhythm. Normal S1 and S2. No murmurs, rubs, or gallops appreciated Pulmonary: Normal respiratory effort. No rhonchi, rales, or wheezing appreciated Gastrointestinal: Soft, nondistended. Nontender. Positive bowel sounds all 4 quadrants. No guarding. Musculoskeletal: Moves all extremities. No calf tenderness. No edema appreciated. Central nervous system: Awake and alert. Able to follow some commands. Speech does not make sense. Dermatologic: Skin warm and dry. Assessment and plan: Patient is a 48 year old male with unknown past medical history that presented to the emergency room s/p cardiac arrest and ventricular fibrillation. 1. S/P V-fib arrest. S/P hypothermia protocol. NSTEMI. Dilated cardiomyopathy. Cardiology recommendations appreciated. Continue amiodarone. Continue ASA. Continue Lisinopril and Coreg. S/P heparin drip and dobutamine. Cardiac catheterization canceled secondary to mental status. Troponins were 0.06, then 9.05, then 7.60. 2D echo per radiological defense officer showed LVEF of 13%, left ventricle is normal size, normal left ventricular wall thickness, systolic function is severely impaired, significant regional wall motion abnormalities noted, mitral regurgitation is mild to moderate, trace aortic regurgitation. 2. S/P severe sepsis secondary to aspiration pneumonia. ID recommendations appreciated. S/P treatment with Doxcycline and Zosyn. Remains afebrile. Leukocytosis continues to uptrend, unclear etiology. Procalcitonin was <0.05, then 5.90, then 0.18, and now 0.11. Blood and urine cultures with no growth. CT chest/abdomen/pelvis per radiologist on 07/08/2018 showed findings in the lung may represent pulmonary edema or aspiration pneumonitis, moderate bilateral pleural effusions, no acute findings in the abdomen or pelvis; fluid filled distended stomach, fluid in the small bowel loops, and fluid filled mildly distended colon. 3. S/P Vent dependent respiratory failure. S/P extubation 07/15/18. Patient not swallowing food. Speech and swallow re-consulted. Made NPO. Continue aspiration precautions. 4. Acute anoxic encephalopathy. Neurology recommendations appreciated. Patient following commands but speech does not make sense. Continue seizure precautions. Continue Depakote. Continue supportive care. Head CT 07/10/18 per radiologist showed no acute intracranial abnormalities. Brain MRI per radiologist showed no acute cranial findings. Continue neurochecks. EEG per neurologist showed moderate to severe nonspecific diffuse disturbance of cortical activity, in keeping with the diffuse chase matter dysfunction; findings do not suggest a specific etiology. 5. Transaminitis. Resolved. Continue to monitor. 6. Drug abuse. Urine drug screen positive for opioids and cannabinoids. 7. GI/DVT prophylaxis. Pepcid/Lovenox. 8. Palliative care following
--- NOTE | 2018-07-18 16:49 | PN ---
DATE: 07/18/[address] Kelby Guerrero. SUBJECTIVE: The patient is lethargic and poorly responsive. He does not appear to be in respiratory distress. PHYSICAL EXAMINATION: VITAL SIGNS: Blood pressure 116/85, heart rate 85, temperature 98.2, respirations 22. HEENT: Normocephalic. CHEST: Diminished breath sounds over the bases. HEART: S1 and S2, regular. EXTREMITIES: 1+ pitting edema. LABORATORY DATA: Most recent EKG on 07/09/2018, revealed ectopic atrial rhythm or junctional rhythm. Intraventricular conduction delay of right bundle branch block pattern. Nonspecific ST-T wave changes. Prolonged QT interval. Echocardiographic study revealed normal left ventricular wall thickness and severely impaired systolic function with significant regional wall motion abnormality. ASSESSMENT: 1. Status post ventricular fibrillation. 2. 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 3. Rule out underlying sepsis. 4. Status post respiratory failure. RECOMMENDATIONS: Continue current aspirin 81 mg once a day, amiodarone 400 mg daily, Coreg 12.5 mg once a day, Depakote 1 g p.o. twice a day, Lovenox 40 mg subcutaneous once a day, Zestril at 5 mg daily. Cardiac catheterization will be considered when the patient is more awake and responsive, and able to sign a consent, unless a legal guardian is available. Oswaldo Lee MD
[2018-07-18] MEDS: Valproate 750 MG in Sodium Chloride 0.9% 100 ML IVPB SCH (18:10)
--- NOTE | 2018-07-18 18:33 | RAD ---
Date of service: 07/18/2018 HISTORY: NG Tube placement COMPARISON: 07/15/2018 FINDINGS: LUNGS: No active pulmonary disease. PLEURA: No significant pleural effusion identified, no pneumothorax apparent. CARDIOVASCULAR: No atherosclerotic calcification present No radiographic findings to suggest acute or significant cardiovascular disease. OSSEOUS STRUCTURES: No significant abnormalities. VISUALIZED UPPER ABDOMEN: Recently placed nasogastric tube tip in the stomach. OTHER FINDINGS: None. IMPRESSION: No active disease. Satisfactory position of recently placed nasogastric tube.
[2018-07-18] MEDS: Sodium Chloride 0.9% 1,000 ML IV SCH (22:45)
--- NOTE | 2018-07-18 23:39 | PN ---
DATE: 07/18/2018 SUBJECTIVE: The patient is in bed, in no acute distress, nontoxic. PHYSICAL EXAMINATION: VITAL SIGNS: Temperature is 98, blood pressure is 140/90,respiratory rate of 22. HEENT: Unremarkable. NECK: Supple. LUNGS: Have decreased breath sounds. HEART: Normal S1, S2. ABDOMEN: Soft, nontender. LABORATORY DATA: Reveals a white count of 18,500, hemoglobin of 14, platelets of 320. Chemistry reveals a BUN of 30, creatinine of 1, and procalcitonin is 0.11. Urinalysis is noted. Toxicology is noted. Serology reveals hepatitis B surface antigen to be reactive. Hepatitis C is negative and review of the chemistries reveals the ALT was elevated. Now, it is at 53. ASSESSMENT AND PLAN: This is a 48-year-old male who was seen early this morning in 261, bed 1. Chest x-ray, no active lung disease from today. He was admitted with acute change of mental status, cardiac arrest, anoxic brain injury. Currently, the patient is awake and responsive, speaks a few words, has non-ST elevation myocardial infarction, severe cardiomyopathy, status post ventricular fibrillation, arrest, off of antibiotics. Does have hepatitis B surface antigen. We will check on the hepatitis B, D, and A and hepatitis B, E antigen. The patient's human immunodeficiency virus fourth generation test is negative. We will make further recommendations. Follow with you. Ever Miller MD
[2018-07-19] MEDS: Valproate 750 MG in Sodium Chloride 0.9% 100 ML IVPB SCH ×2 (04:47→18:00)
[2018-07-19 08:56] LABS: ALBUMIN 4.3 g/dL (3.0-4.8); ALT/SGPT 48 U/L (7-56); AST/SGOT 80 U/L (17-59); BLOOD UREA NITROGEN 40 mg/dL (7-21); CALCIUM 9.7 mg/dL (8.4-10.5); GFR NON-AFRICAN AMERICAN > 60
--- NOTE | 2018-07-19 09:40 | RAD ---
Date of service: 07/19/2018 HISTORY: r/o aspiration COMPARISON: Chest radiograph dated 07/18/2018 TECHNIQUE: 1 view obtained. FINDINGS: LUNGS: Faint patchy opacities at the left lung base. PLEURA: No significant pleural effusion identified, no pneumothorax apparent. CARDIOVASCULAR: Aortic atherosclerotic calcifications. Cardiomediastinal silhouette within normal limits OSSEOUS STRUCTURES: No significant abnormalities. VISUALIZED UPPER ABDOMEN: Normal. OTHER FINDINGS: Enteric tube, unchanged IMPRESSION: New faint patchy opacities in the left lung base which can be seen in the setting of aspiration.
[2018-07-19] MEDS: Enoxaparin 40 mg Syringe SC SCH (09:59)
[2018-07-19 10:04] LABS: BASO # 0.08 K/mm3 (0.0-2.0); BASO % 0.4 % (0.0-3.0); EOS % 0.1 % (1.5-5.0); HEMOGLOBIN 14.6 g/dL (14.0-18.0); LYMPH # 1.7 (1.2-3.4); LYMPH % 8.3 % (22.0-35.0); MEAN CELL VOLUME 96.7 fl (80.0-105.0); MEAN CORPUSCULAR HGB CONC 33.1 g/dl (31.0-37.0); MEAN PLATELET VOLUME 11.4 fl (7.0-11.0); MONO # 1.2 (0.1-0.6); MONO % 6.2 % (1.0-6.0); RBC 4.56 10^6/uL (3.5-6.1)
--- NOTE | 2018-07-19 11:56 | CP.PCM.PN ---
<Coleen Gandhi - Last Filed: 07/19/18 12:08> Subjective - Date & Time of Evaluation Date of Evaluation: 07/19/18 Time of Evaluation: 11:34 - Subjective Subjective: Coleen Gandhi, PGY-1, Internal Medicine Progress Note for Dr. Walker Patient seen and evaluated at bedside. Patient had no acute overnight events. Patient was in mild distress at bedside, was AAOx0, but followed commands. 12- point ROS was unattainable due to patient's mental status. Objective - Vital Signs/Intake and Output Vital Signs (last 24 hours): Temp Pulse Resp BP Pulse Ox 98.6 F 102 H 22 123/92 H 97 07/19/18 06:00 07/19/18 09:59 07/19/18 06:00 07/19/18 09:59 07/19/18 06:00 Intake and Output: 07/19/18 07/19/18 06:59 18:59 Intake Total 1320 Output Total 250 Balance 1070 - Medications Medications: Current Medications Amiodarone HCl (Cordarone) 400 mg PO DAILY [facility] Last Admin: 07/19/18 09:56 Dose: 400 mg Artificial Tears (Puralube Opht Oint) 1 appl OU Q4H PRN PRN Reason: Dry eyes Artificial Tears (Refresh Opth Soln) 0.3 ml OU Q4H PRN PRN Reason: Dry eyes Last Admin: 07/09/18 10:37 Dose: 2 d Aspirin (Aspirin Chewable) 81 mg PO DAILY [facility] Last Admin: 07/19/18 09:59 Dose: 81 mg Carvedilol (Coreg) 12.5 mg PO BID [facility] Last Admin: 07/19/18 09:59 Dose: 12.5 mg Enoxaparin Sodium (Lovenox) 40 mg SC DAILY [facility]; Protocol Last Admin: 07/19/18 09:59 Dose: 40 mg Famotidine (Pepcid) 20 mg IVP DAILY [facility] Last Admin: 07/19/18 09:56 Dose: 20 mg Valproate Sodium 750 mg/ (Sodium Chloride) 107.5 mls @ 100 mls/hr IVPB Q12H [facility] Last Admin: 07/19/18 04:47 Dose: 100 mls/hr Sodium Chloride (Sodium Chloride 0.9%) 1,000 mls @ 80 mls/hr IV .[id number] [facility] Last Admin: 07/18/18 22:45 Dose: 80 mls/hr Lisinopril (Zestril) 5 mg PO DAILY [facility] Last Admin: 07/19/18 09:58 Dose: 5 mg - Labs Labs: 07/19/18 08:27 07/19/18 08:27 PT 12.7 SECONDS (9.4-12.5) H 07/09/18 21:10 INR 1.14 07/09/18 21:10 APTT 50.0 Seconds (26.9-38.3) H 07/12/18 04:00 - Constitutional Appears: Well, Non-toxic, No Acute Distress - Head Exam Head Exam: NORMAL INSPECTION, NORMOCEPHALIC - Eye Exam Eye Exam: EOMI, Normal appearance Pupil Exam: Irregular (R>L), PERRL - ENT Exam ENT Exam: Mucous Membranes Dry, Normal Exam - Neck Exam Neck Exam: Normal Inspection - Respiratory Exam Respiratory Exam: NORMAL BREATHING PATTERN - Cardiovascular Exam Cardiovascular Exam: REGULAR RHYTHM, +S1, +S2 - GI/Abdominal Exam GI & Abdominal Exam: Soft, Normal Bowel Sounds - Extremities Exam Extremities Exam: Normal Inspection. absent: Calf Tenderness - Back Exam Back Exam: NORMAL INSPECTION - Neurological Exam Neurological Exam: Alert, Awake - Psychiatric Exam Psychiatric exam: Normal Affect - Skin Skin Exam: Dry, Intact, Warm Assessment and Plan - Assessment and Plan (Free Text) Assessment: 48 year old male presented to the emergency department, with unknown past medical history brought in by ambulance after a witnessed cardiac arrest with ventricular fibrillation. s/p CPR for 25 minutes, 3x epinephrines, 2 narcans, 5 shocks and 3x Amiodarone in the field. Pt achieved ROSC and was taken off code freeze w/ in 72 hours. Pt monitored in ICU, subsequently extubated and transferred to telemetry. 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 Speaks few words. - Continue depakote per neuro recs for seizure prophylaxis - Pending Neuro re-evaluation - Will continue aspiration precautions - Continue neurochecks - Brain MRI (07/11): no acute intracranial findings - Head CT (07/10): No acute abnormalities. No significant findings to account for clinical presentation. No significant interval change compared to prior examination. - Head CT (07/08): Supoptimal diagnostic quality due to extensive beam hardening artifacts patient motion. Allowing for this, no acute intracranial abnormalities. - Video EEG (07/11): Moderate to severe non specific diffuse disturbance of cortical activity, in keeping with a diffuse chase matter dysfunction. The findings do not suggest a specific etiology Severe Sepsis 2/2 to aspiration pneumonia -ID has been consulted -Patient is afebrile at this time -Leukocytosis is uptrending with unclear etiology. -Procalcitonin: 0.11 from 0.18 -Blood cultures and urine culture show no growth at this time. -HIV: negative -Patient has hepatitis B surface antigen -P[place] CT 07/08 showed possible aspiration pneumonitis vs. pulmonary edema, moderate bilateral pleural effusion -CXR 07/19: few faint patchy opacities in the left lung base which can be seen in the setting of aspiration -Urinanalysis 07/08 is negative for leukocyte esterase and nitrate, thus, unlikely UTI at that time -Due to continuation of uptrend of WBC and patient's condition, will obtain UA to rule out UTI -Status post treatment with doxycycline and zosyn Cardiac Arrest in the setting of ventricular fibrillation s/p ROSC - S/p witnessed cardiac arrest with ventricular fibrillation. s/p CPR for 25 minutes, 3x epinephrine, 2x narcan, 5 shocks & 3x Amiodarone. Approximate downtime 25minutes. s/p code freeze completed at 5:30 pm 07/09 - Echocardiogram: LVEF of 13%, left ventricle normal size systolic function severely impaired, mild to moderate MR, trace AR - Continue oral amiodarone 400mg per cardio recs. - Continue aspirin 81 mg daily - Continue lisinopril and coreg. - Patient was initially scheduled for cardiac catherization however pt is unable to understand risks/benefits of the procedure and provide consent. - Hemoglobin A1C - 5.0 - lipid panel - Chol 184, LDL - 84, HDL - 85 - TSH/T4 - TSH = 6.37, T4 = wnl Ventilator dependent respiratory failure -Status post extubation on 07/15/18 -Patient has not been swallowing well. -Patient is now NPO -Speech and swallow were reconsulted: recommendations include NPO for now due to poor response and lack of focus -Continue aspiration precautions NSTEMI - Initial EKG showed NSR @ 68. L axis deviation, Initial troponins 07/08:0.06, 07/08:9.05, 07/09:7.6. - Heparin discontinued on 07/13 & switched to lovenox 40sc daily on 07/13 - Continue aspirin, zestril, coreg - Cardiac cath pending improvement in neurological status Severe cardiomyopathy w/ reduced EF in the setting of cardiac arrest - Echo: LVEF of 13%, left ventricle is normal size, normal left ventricular wall thickness, systolic function is severely impaired, significant regional wall motion abnormalities noted, mitral regurgitation is mild to moderate, trace aortic regurgitation. - CXR 07/19: few faint patchy opacities in the left lung base which can be seen in the setting of aspiration - Continue with aspirin, lisinopril, and coreg - Cardiology recs pending Polysubstance abuse -UDS was positive for opiods and cannabinoids -Unable to provide counseling due to mental status GI/DVT PPx: Pepcid/lovenox Dispo: - PT recommending ARGENIS. Pending placements - Spoke with family member, Jessica Denson @11:22am 07/17. She was updated on clinical and neurological status of pt. She reports she had seen pt on 07/08/18. All questions were answered during conversation. Patient plan discussed with Dr. Walker <Carmela Walker - Last Filed: 07/20/18 06:58> Objective - Vital Signs/Intake and Output Vital Signs (last 24 hours): Temp Pulse Resp BP Pulse Ox 98 F 75 20 127/81 94 L 07/20/18 00:00 07/20/18 02:00 07/20/18 00:00 07/20/18 00:00 07/20/18 00:00 Intake and Output: 07/19/18 07/20/18 18:59 06:59 Intake Total 0 Output Total 750 Balance -750 - Medications Medications: Current Medications Amiodarone HCl (Cordarone) 400 mg PO DAILY [facility] Last Admin: 07/19/18 09:56 Dose: 400 mg Artificial Tears (Puralube Opht Oint) 1 appl OU Q4H PRN PRN Reason: Dry eyes Last Admin: 07/19/18 18:00 Dose: 1 drop Artificial Tears (Refresh Opth Soln) 0.3 ml OU Q4H PRN PRN Reason: Dry eyes Last Admin: 07/09/18 10:37 Dose: 2 d Aspirin (Aspirin Chewable) 81 mg PO DAILY [facility] Last Admin: 07/19/18 09:59 Dose: 81 mg Carvedilol (Coreg) 12.5 mg PO BID [facility] Last Admin: 07/19/18 17:25 Dose: 12.5 mg Enoxaparin Sodium (Lovenox) 40 mg SC DAILY [facility]; Protocol Last Admin: 07/19/18 09:59 Dose: 40 mg Famotidine (Pepcid) 20 mg IVP DAILY [facility] Last Admin: 07/19/18 09:56 Dose: 20 mg Valproate Sodium 750 mg/ (Sodium Chloride) 107.5 mls @ 100 mls/hr IVPB Q12H [facility] Last Admin: 07/20/18 04:53 Dose: 100 mls/hr Sodium Chloride (Sodium Chloride 0.9%) 1,000 mls @ 80 mls/hr IV .[id number] [facility] Last Admin: 07/19/18 13:00 Dose: 80 mls/hr Lisinopril (Zestril) 5 mg PO DAILY [facility] Last Admin: 07/19/18 09:58 Dose: 5 mg - Labs Labs: 07/19/18 08:27 07/19/18 08:27 PT 12.7 SECONDS (9.4-12.5) H 07/09/18 21:10 INR 1.14 07/09/18 21:10 APTT 50.0 Seconds (26.9-38.3) H 07/12/18 04:00 Attending/Attestation - Attestation I have personally seen and examined this patient.: Yes I have fully participated in the care of the patient.: Yes I have reviewed all pertinent clinical information, including history, physical exam and plan: Yes Notes (Text): Patient seen and examined by me with resident at approximately 8:30AM on 07/19/18. Case including HPI, physical exam, and assessment and plan discussed with resident. Agree with above with following additions/corrections. Patient is a 48 year old male with unknown past medical history that presented to the emergency room s/p cardiac arrest and ventricular fibrillation. Patient awake and alert. Patient is able to verbalize that he has pain every where. Not answering other questions. NGT placed last night. Following some commands. Afebrile. Physical exam: General: Awake and alert sitting up in bed in no acute distress HEENT: Normocephalic, atraumatic. Extraocular muscles intact. Pupils equal and reactive, no scleral icterus. Oropharynx is pink. NGT in place. Neck is supple. Cardiovascular: Normal rhythm. Normal S1 and S2. No murmurs, rubs, or gallops appreciated Pulmonary: Normal respiratory effort. No rhonchi, rales, or wheezing appreciated Gastrointestinal: Soft, nondistended. Nontender. Positive bowel sounds all 4 quadrants. No guarding. Musculoskeletal: Moves all extremities. No calf tenderness. No edema appreciated. Central nervous system: Awake and alert. Able to follow some commands. Able to verbalize certain sentences. Dermatologic: Skin warm and dry. Assessment and plan: Patient is a 48 year old male with unknown past medical history that presented to the emergency room s/p cardiac arrest and ventricular fibrillation. 1. S/P V-fib arrest. S/P hypothermia protocol. NSTEMI. Dilated cardiomyopathy. Cardiology recommendations appreciated. Continue amiodarone and ASA. Continue Lisinopril and Coreg. S/P heparin drip and dobutamine. Cardiac cath canceled secondary to mental status. Troponins were 0.06, then 9.05, then 7.60. 2D echo per stiff leg operator showed LVEF of 13%, left ventricle is normal size, normal left ventricular wall thickness, systolic function is severely impaired, significant regional wall motion abnormalities noted, mitral regurgitation is mild to moderate, trace aortic regurgitation. 2. S/P severe sepsis secondary to aspiration pneumonia. ID recommendations appreciated. S/P treatment with Doxcycline and Zosyn. Remains afebrile. Leukocytosis continues to uptrend, possibly aspiration again. Follow up chest xray. Patient made NPO and NGT placed. Procalcitonin was <0.05, then 5.90, then 0.18, and now 0.11. Blood and urine cultures with no growth. CT chest/abdomen/pelvis per radiologist on 07/08/2018 showed findings in the lung may represent pulmonary edema or aspiration pneumonitis, moderate bilateral pleural effusions, no acute findings in the abdomen or pelvis; fluid filled distended stomach, fluid in the small bowel loops, and fluid filled mildly distended colon. 3. S/P Vent dependent respiratory failure. S/P extubation 07/15/18. Continue NPO. NGT placed. Continue aspiration precautions. 4. Acute anoxic encephalopathy. Neurology recommendations appreciated. Patient following commands but with aphasia. Continue seizure precautions. Continue Depakote. Continue supportive care. Head CT 07/10/18 per radiologist showed no acute intracranial abnormalities. Brain MRI per radiologist showed no acute cranial findings. Continue neurochecks. EEG per neurologist showed moderate to severe nonspecific diffuse disturbance of cortical activity, in keeping with the diffuse chase matter dysfunction; findings do not suggest a specific etiology. 5. Transaminitis. Resolved. Continue to monitor. 6. Drug abuse. Urine drug screen positive for opioids and cannabinoids. 7. GI/DVT prophylaxis. Pepcid/Lovenox. 8. Palliative care following
[2018-07-19 12:50] LABS: URINE BILIRUBIN NEGATIVE (NEGATIVE); URINE BLOOD NEGATIVE (NEGATIVE); URINE GLUCOSE (UA) NEGATIVE (NEGATIVE); URINE LEUKOCYTE ESTERASE NEGATIVE Leu/uL (NEGATIVE); URINE PROTEIN TRACE mg/dL (<30 mg/dL); URINE UROBILINOGEN 0.2 E.U./dL (<1 E.U./dL)
[2018-07-19 12:56] LABS: URINE APPEARANCE CLEAR (CLEAR); URINE COLOR YELLOW (YELLOW)
[2018-07-19] MEDS: Sodium Chloride 0.9% 1,000 ML IV SCH (13:00)
[2018-07-19 13:12] LABS: URINE BACTERIA FEW /hpf; URINE RBC 0 - 2 /hpf (0-2); URINE WBC 0 - 2 /hpf (0-6)
--- NOTE | 2018-07-19 17:03 | PN ---
DATE: 07/19/2018 SUBJECTIVE: The patient is lethargic and does not appear to be in distress. PHYSICAL EXAMINATION VITAL SIGNS: Blood pressure 123/92, heart rate 102, temperature 97.6. HEENT: Normocephalic. CHEST: Diminished air entry bilaterally. HEART: S1 and S2 regular. EXTREMITIES: Trace edema. LABORATORY DATA: Today's hemoglobin and hematocrit 14.6 and 44.1, white count 20,000, platelet count 364,000. Today's SMA-7; sodium 151, potassium 3.7, chloride 112, CO2 of 24, glucose 88, BUN 40, creatinine 1.0. Today's chest x-ray report, new faint patchy opacities in the left lung base, which can be seen in the setting of aspiration. ASSESSMENT: 1. Status post ventricular fibrillation. 2. Consider anoxic encephalopathy. 3. Consider aspiration pneumonia. 4. Cocaine and opiate abuse. RECOMMENDATIONS: Continue aspirin 81 mg once a day, amiodarone 400 mg daily, Coreg 12.5 mg twice a day, Lovenox 40 mg subcutaneous once a day, and Vistaril 5 mg daily. Oswaldo Lee MD
--- NOTE | 2018-07-19 20:14 | PN ---
DATE: 07/19/2018 SUBJECTIVE: The patient is in bed in no acute distress. He was seen earlier today in 261. PHYSICAL EXAMINATION VITAL SIGNS: Temperature is 99, blood pressure is 120/70, respiratory rate of 16. HEENT: Unremarkable. NECK: Supple. LUNGS: Have decreased breath sounds. HEART: Normal S1, S2. ABDOMEN: Soft. LABORATORY DATA: Reveals a white count of 20,000, BUN of 40, creatinine of 1.0, procalcitonin is 0.11. Microbiology is noted and blood cultures are negative, sputum cultures are negative. REVIEW OF ORDERS: Reveals the patient is off of antibiotics. ASSESSMENT AND PLAN: A 48-year-old male who was seen earlier today, was admitted with acute change in mental status, cardiac arrest, anoxic brain injury, and now he is awake and responsive. He had [id number] myocardial infarction, severe cardiomyopathy, ventricular fibrillation, currently off of antibiotics. He does have hepatitis B surface antigen is positive and HIV is negative and he does have leukocytosis of 20,000 with 85% neutrophils. We will follow closely with you. Ever Miller MD
[2018-07-20] MEDS: Valproate 750 MG in Sodium Chloride 0.9% 100 ML IVPB SCH ×2 (04:53→19:48)
[2018-07-20 07:25] LABS: BASO # 0.01 K/mm3 (0.0-2.0); BASO % 0.1 % (0.0-3.0); EOS # 0.1 (0.0-0.7); EOS % 0.5 % (1.5-5.0); HEMOGLOBIN 12.5 g/dL (14.0-18.0); LYMPH # 1.5 (1.2-3.4); LYMPH % 14.5 % (22.0-35.0); MEAN CELL VOLUME 98.2 fl (80.0-105.0); MEAN CORPUSCULAR HEMOGLOBIN 31.3 pg (25.0-35.0); MEAN CORPUSCULAR HGB CONC 31.9 g/dl (31.0-37.0); MEAN PLATELET VOLUME 10.3 fl (7.0-11.0); MONO # 0.8 (0.1-0.6); MONO % 7.3 % (1.0-6.0); RBC 3.99 10^6/uL (3.5-6.1); RED CELL DISTRIBUTION WIDTH 13.2 % (11.5-14.5); WHITE BLOOD COUNT 10.6 10^3/uL (4.5-11.0)
[2018-07-20 07:58] LABS: ALBUMIN 3.5 g/dL (3.0-4.8); ALT/SGPT 45 U/L (7-56); AST/SGOT 65 U/L (17-59); BLOOD UREA NITROGEN 36 mg/dL (7-21); GFR NON-AFRICAN AMERICAN > 60
--- NOTE | 2018-07-20 09:38 | CP.PCM.PN ---
<Coleen Gandhi - Last Filed: 07/20/18 09:31> Subjective - Date & Time of Evaluation Date of Evaluation: 07/20/18 Time of Evaluation: 09:31 - Subjective Subjective: Coleen Gandhi, PGY-1, Internal Medicine Progress Note for Dr. Walker Patient seen and evaluated at bedside. Patient had no acute overnight events. Patient was initially not responsive, but started to groan in pain upon palpation of abdomen and was able to later follow commands including lifting his legs. Patient's mental status is still altered. 12-point ROS was unremarkable except for what was mentioned above. Objective - Vital Signs/Intake and Output Vital Signs (last 24 hours): Temp Pulse Resp BP Pulse Ox 98.5 F 74 20 105/73 97 07/20/18 06:00 07/20/18 06:00 07/20/18 06:00 07/20/18 06:00 07/20/18 06:00 Intake and Output: 07/20/18 07/20/18 06:59 18:59 Intake Total 1320 Output Total 750 Balance 570 - Medications Medications: Current Medications Amiodarone HCl (Cordarone) 400 mg PO DAILY [facility] Last Admin: 07/19/18 09:56 Dose: 400 mg Artificial Tears (Puralube Opht Oint) 1 appl OU Q4H PRN PRN Reason: Dry eyes Last Admin: 07/19/18 18:00 Dose: 1 drop Artificial Tears (Refresh Opth Soln) 0.3 ml OU Q4H PRN PRN Reason: Dry eyes Last Admin: 07/09/18 10:37 Dose: 2 d Aspirin (Aspirin Chewable) 81 mg PO DAILY [facility] Last Admin: 07/19/18 09:59 Dose: 81 mg Carvedilol (Coreg) 12.5 mg PO BID [facility] Last Admin: 07/19/18 17:25 Dose: 12.5 mg Enoxaparin Sodium (Lovenox) 40 mg SC DAILY [facility]; Protocol Last Admin: 07/19/18 09:59 Dose: 40 mg Famotidine (Pepcid) 20 mg IVP DAILY [facility] Last Admin: 07/19/18 09:56 Dose: 20 mg Valproate Sodium 750 mg/ (Sodium Chloride) 107.5 mls @ 100 mls/hr IVPB Q12H [facility] Last Admin: 07/20/18 04:53 Dose: 100 mls/hr Potassium Chloride (Potassium Chloride 10 Meq/100 Ml) 10 meq in 100 mls @ 100 mls/hr IVPB Q2H [facility] Stop: 07/20/18 11:44 Lisinopril (Zestril) 5 mg PO DAILY [facility] Last Admin: 07/19/18 09:58 Dose: 5 mg - Labs Labs: 07/20/18 06:40 07/20/18 06:40 PT 12.7 SECONDS (9.4-12.5) H 07/09/18 21:10 INR 1.14 07/09/18 21:10 APTT 50.0 Seconds (26.9-38.3) H 07/12/18 04:00 - Constitutional Appears: Well, Non-toxic, No Acute Distress - Head Exam Head Exam: NORMAL INSPECTION, NORMOCEPHALIC - Eye Exam Eye Exam: EOMI, Normal appearance Pupil Exam: Irregular (R>L), PERRL - ENT Exam ENT Exam: Mucous Membranes Dry, Normal Exam - Neck Exam Neck Exam: Normal Inspection - Respiratory Exam Respiratory Exam: NORMAL BREATHING PATTERN - Cardiovascular Exam Cardiovascular Exam: REGULAR RHYTHM, +S1, +S2 - GI/Abdominal Exam GI & Abdominal Exam: Soft, Normal Bowel Sounds - Extremities Exam Extremities Exam: Normal Inspection. absent: Calf Tenderness - Back Exam Back Exam: NORMAL INSPECTION - Neurological Exam Neurological Exam: Alert, Awake, Confused, Follows Commands but unable to articulate many words - Psychiatric Exam Psychiatric exam: Normal Affect - Skin Skin Exam: Dry, Intact, Warm Assessment and Plan - Assessment and Plan (Free Text) Assessment: 48 year old male presented to the emergency department, with unknown past medical history brought in by ambulance after a witnessed cardiac arrest with ventricular fibrillation. s/p CPR for 25 minutes, 3x epinephrines, 2 narcans, 5 shocks and 3x Amiodarone in the field. Pt achieved ROSC and was taken off code freeze w/ in 72 hours. Pt monitored in ICU, subsequently extubated and transferred to telemetry. 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 Speaks few words. - Continue depakote per neuro recs for seizure prophylaxis - Pending Neuro re-evaluation - Will continue aspiration precautions - Continue neurochecks - Brain MRI (07/11): no acute intracranial findings - Head CT (07/10): No acute abnormalities. No significant findings to account for clinical presentation. No significant interval change compared to prior examination. - Head CT (07/08): Suboptimal diagnostic quality due to extensive beam hardening artifacts patient motion. Allowing for this, no acute intracranial abnormalities. - Video EEG (07/11): Moderate to severe non specific diffuse disturbance of cortical activity, in keeping with a diffuse chase matter dysfunction. The findings do not suggest a specific etiology Severe Sepsis 2/2 to aspiration pneumonia -ID has been consulted -Patient is afebrile at this time -Leukocytosis is downtrending -Procalcitonin: 0.11 from 0.18 -Blood cultures and urine culture show no growth at this time. -HIV: negative -Patient has hepatitis B surface antigen -P[place] CT 07/08 showed possible aspiration pneumonitis vs. pulmonary edema, moderate bilateral pleural effusion -CXR 07/19: few faint patchy opacities in the left lung base which can be seen in the setting of aspiration -Urinanalysis 07/08 is negative for leukocyte esterase and nitrate, thus, unlikely UTI at that time -Repeat UA shows no evidence of UTI at this time. -Status post treatment with doxycycline and zosyn Cardiac Arrest in the setting of ventricular fibrillation s/p ROSC - S/p witnessed cardiac arrest with ventricular fibrillation. s/p CPR for 25 minutes, 3x epinephrine, 2x narcan, 5 shocks & 3x Amiodarone. Approximate downtime 25minutes. s/p code freeze completed at 5:30 pm 07/09 - Echocardiogram: LVEF of 13%, left ventricle normal size systolic function severely impaired, mild to moderate MR, trace AR - Continue oral amiodarone 400mg per cardio recs. - Continue aspirin 81 mg daily - Continue lisinopril and coreg. - Patient was initially scheduled for cardiac catherization however pt is unable to understand risks/benefits of the procedure and provide consent. - Hemoglobin A1C - 5.0 - lipid panel - Chol 184, LDL - 84, HDL - 85 - TSH/T4 - TSH = 6.37, T4 = wnl Ventilator dependent respiratory failure/Malnutrition -Status post extubation on 07/15/18 -Patient has not been swallowing well. -Patient is now NPO -Due to poor PO intake, started NS at 80 cc/hr -Free water flushes increased in frequency to Q6 -Speech and swallow were reconsulted: recommendations include NPO for now due to poor response and lack of focus -Will need mortgage assistant for further evaluation of malnutrition and PO intake -Continue aspiration precautions NSTEMI - Initial EKG showed NSR @ 68. L axis deviation, Initial troponins 07/08:0.06, 07/08:9.05, 07/09:7.6. - Heparin discontinued on 07/13 & switched to lovenox 40sc daily on 07/13 - Continue aspirin, zestril, coreg - Cardiac cath pending improvement in neurological status Severe cardiomyopathy w/ reduced EF in the setting of cardiac arrest - Echo: LVEF of 13%, left ventricle is normal size, normal left ventricular wall thickness, systolic function is severely impaired, significant regional wall motion abnormalities noted, mitral regurgitation is mild to moderate, trace aortic regurgitation. - CXR 07/19: few faint patchy opacities in the left lung base which can be seen in the setting of aspiration - Continue with aspirin, lisinopril, and coreg Polysubstance abuse -UDS was positive for opiods and cannabinoids -Unable to provide counseling due to mental status GI/DVT PPx: Pepcid/lovenox Dispo: - PT recommending [facility]. Pending placements - Spoke with family member, Jessica Denson @11:22am 07/17. She was updated on clinical and neurological status of pt. She reports she had seen pt on 07/08/18. All questions were answered during conversation. Patient plan discussed with Dr. Walker <Carmela Walker R - Last Filed: 07/20/18 13:10> Objective - Vital Signs/Intake and Output Vital Signs (last 24 hours): Temp Pulse Resp BP Pulse Ox 98.2 F 73 18 112/77 97 07/20/18 12:00 07/20/18 12:00 07/20/18 12:00 07/20/18 12:00 07/20/18 06:00 Intake and Output: 07/20/18 07/20/18 06:59 18:59 Intake Total 1320 Output Total 750 Balance 570 - Medications Medications: Current Medications Amiodarone HCl (Cordarone) 400 mg PO DAILY [facility] Last Admin: 07/19/18 09:56 Dose: 400 mg Artificial Tears (Puralube Opht Oint) 1 appl OU Q4H PRN PRN Reason: Dry eyes Last Admin: 07/19/18 18:00 Dose: 1 drop Artificial Tears (Refresh Opth Soln) 0.3 ml OU Q4H PRN PRN Reason: Dry eyes Last Admin: 07/09/18 10:37 Dose: 2 d Aspirin (Aspirin Chewable) 81 mg PO DAILY [facility] Last Admin: 07/19/18 09:59 Dose: 81 mg Carvedilol (Coreg) 12.5 mg PO BID [facility] Last Admin: 07/19/18 17:25 Dose: 12.5 mg Enoxaparin Sodium (Lovenox) 40 mg SC DAILY [facility]; Protocol Last Admin: 07/20/18 10:56 Dose: 40 mg Famotidine (Pepcid) 20 mg IVP DAILY [facility] Last Admin: 07/20/18 11:04 Dose: 20 mg Valproate Sodium 750 mg/ (Sodium Chloride) 107.5 mls @ 100 mls/hr IVPB Q12H [facility] Last Admin: 07/20/18 04:53 Dose: 100 mls/hr Potassium Chloride (Potassium Chloride 10 Meq/100 Ml) 10 meq in 100 mls @ 100 mls/hr IVPB Q2H [facility] Stop: 07/20/18 13:50 Last Admin: 07/20/18 12:43 Dose: 100 mls/hr Lisinopril (Zestril) 5 mg PO DAILY [facility] Last Admin: 07/19/18 09:58 Dose: 5 mg - Labs Labs: 07/20/18 06:40 07/20/18 06:40 PT 12.7 SECONDS (9.4-12.5) H 07/09/18 21:10 INR 1.14 07/09/18 21:10 APTT 50.0 Seconds (26.9-38.3) H 07/12/18 04:00 Attending/Attestation - Attestation I have personally seen and examined this patient.: Yes I have fully participated in the care of the patient.: Yes I have reviewed all pertinent clinical information, including history, physical exam and plan: Yes Notes (Text): Patient seen and examined by me with resident at approximately 8:30AM on 07/20/18. Case including HPI, physical exam, and assessment and plan discussed with resident. Agree with above with following additions/corrections. Patient is a 48 year old male with unknown past medical history that presented to the emergency room s/p cardiac arrest and ventricular fibrillation. Patient awake and alert. Patient again complains of pain everywhere. No answering other questions. Patient is following commands. Remains afebrile. Physical exam: General: Awake and alert lying in bed in no acute distress HEENT: Normocephalic, atraumatic. Extraocular muscles intact. Pupils equal and reactive, no scleral icterus. Oropharynx is pink. NGT in place. Neck is supple. Cardiovascular: Normal rhythm. Normal S1 and S2. No murmurs, rubs, or gallops appreciated Pulmonary: Normal respiratory effort. No rhonchi, rales, or wheezing appreciated Gastrointestinal: Soft, nondistended. Nontender. Positive bowel sounds all 4 quadrants. No guarding. Musculoskeletal: Moves all extremities. No calf tenderness. No edema appreciated. Central nervous system: Awake and alert. Follows some commands. Able to verb loulou a few words Dermatologic: Skin warm and dry. Assessment and plan: Patient is a 48 year old male with unknown past medical history that presented to the emergency room s/p cardiac arrest and ventricular fibrillation. 1. S/P V-fib arrest. S/P hypothermia protocol. NSTEMI. Dilated cardiomyopathy. Continue amiodarone and ASA. Continue Lisinopril and Coreg. Cardiology recommendations appreciated. S/P heparin drip and dobutamine. Cardiac cath canceled secondary to mental status. Troponins were 0.06, then 9.05, then 7.60. 2D echo per assembler for puller over machine showed LVEF of 13%, left ventricle is normal size, normal left ventricular wall thickness, systolic function is severely impaired, significant regional wall motion abnormalities noted, mitral regurgitation is mild to moderate, trace aortic regurgitation. 2. S/P severe sepsis secondary to aspiration pneumonia. ID recommendations appreciated. S/P treatment with Doxcycline and Zosyn. Remains afebrile. Leukocytosis resolved. Continue NPO. Continue NGT. Chest xray per radiologist showed new faint patchy opacities in the left lung base which can be seen in the setting of aspiration. Procalcitonin was <0.05, then 5.90, then 0.18, and now 0.11. Blood and urine cultures with no growth. CT chest/abdomen/pelvis per radiologist on 07/08/2018 showed findings in the lung may represent pulmonary edema or aspiration pneumonitis, moderate bilateral pleural effusions, no acute findings in the abdomen or pelvis; fluid filled distended stomach, fluid in the small bowel loops, and fluid filled mildly distended colon. 3. S/P Vent dependent respiratory failure. S/P extubation 07/15/18. Continue NPO. Continue NGT feeds. Speech and swallow following . Continue aspiration precautions. May need PEG 4. Acute anoxic encephalopathy. Neurology recommendations appreciated. Follows most commands but with aphasia. Continue seizure precautions. Continue Depakote. Continue supportive care. Head CT 07/10/18 per radiologist showed no acute intracranial abnormalities. Brain MRI per radiologist showed no acute cranial findings. Continue neurochecks. EEG per neurologist showed moderate to severe nonspecific diffuse disturbance of cortical activity, in keeping with the diffuse chase matter dysfunction; findings do not suggest a specific etiology. 5. Transaminitis. Downtrending. Continue to monitor. 6. Drug abuse. Urine drug screen positive for opioids and cannabinoids. 7. GI/DVT prophylaxis. Pepcid/Lovenox. 8. Palliative care following
--- NOTE | 2018-07-20 10:04 | PN ---
DATE: 07/20/2018 SUBJECTIVE: The patient is in bed, in no acute distress, nontoxic. PHYSICAL EXAMINATION: VITAL SIGNS: Temperature is 98, blood pressure is 105/70, respiratory rate of 20, heart rate of 78. HEENT: Unremarkable. NECK: Supple. LUNGS: Have decreased breath sounds. HEART: Normal S1, S2. ABDOMEN: Soft. LABORATORY DATA: Laboratory examination reveals a white count of 10,000, hemoglobin of 12 and platelets of 337 and chemistries are normal. Procalcitonin 0.11. Urinalysis is noted and serology is noted and cultures are negative. Review of orders reveals the patient is off of antibiotics. ASSESSMENT AND PLAN: This is a 48-year-old male who is admitted with acute change in mental status and cardiac arrest, anoxic brain injury, is awake and responsive, has itw-TR-deactnnbr myocardial infarction, severe cardiomyopathy, ventricular fibrillation of off of antibiotics. His hepatitis surface antigen, hepatitis B surface antigen is positive, waiting for DNA viral load, now has a normal white count and the patient is at risk for developing nosocomial infections. Ever Miller MD
[2018-07-20] MEDS: Enoxaparin 40 mg Syringe SC SCH (10:56)
--- NOTE | 2018-07-20 17:48 | PN ---
DATE: 07/20/2018 SUBJECTIVE: The patient is confused to place and most of his answers are inappropriate. He denies any chest pain. No reported history of ventricular tachycardia. PHYSICAL EXAMINATION: VITAL SIGNS: Blood pressure 112/77, heart rate 73, temperature 98.2, and respirations 18. HEENT: Normocephalic. CHEST: Diminished breath sounds over the bases. HEART: S1 and S2 regular. EXTREMITIES: No edema. LABORATORY DATA: Today's hemoglobin and hematocrit 12.5 and 39.2. White count and platelet count are within normal limit. Today's SMA-7; sodium 149, potassium 3.5, chloride 114, CO2 of 28, glucose 96, BUN 36, and creatinine 0.9. ASSESSMENT: 1. Status post ventricular fibrillation. 2. Improving anoxic encephalopathy. 3. Consider aspiration pneumonia. 4. Cocaine and opiate abuse. RECOMMENDATIONS: Continue aspirin 81 mg once a day, amiodarone 400 mg once a day, Coreg 12.5 mg twice a day, subcutaneous Lovenox 40 mg once a day, Zestril at 5 mg daily, and valproate sodium 750 mg intravenous every 12 hours. Oswaldo Lee MD
[2018-07-21 08:20] LABS: BASO # 0.02 K/mm3 (0.0-2.0); BASO % 0.2 % (0.0-3.0); EOS # 0.1 (0.0-0.7); EOS % 0.7 % (1.5-5.0); LYMPH % 21.4 % (22.0-35.0); MEAN CELL VOLUME 98.4 fl (80.0-105.0); MEAN CORPUSCULAR HEMOGLOBIN 31.1 pg (25.0-35.0); MEAN CORPUSCULAR HGB CONC 31.6 g/dl (31.0-37.0); MONO # 0.6 (0.1-0.6); MONO % 6.5 % (1.0-6.0); RBC 3.86 10^6/uL (3.5-6.1); RED CELL DISTRIBUTION WIDTH 12.9 % (11.5-14.5); WHITE BLOOD COUNT 9.1 10^3/uL (4.5-11.0)
[2018-07-21 08:37] LABS: ALBUMIN 3.4 g/dL (3.0-4.8); ALT/SGPT 44 U/L (7-56); AST/SGOT 73 U/L (17-59); BLOOD UREA NITROGEN 29 mg/dL (7-21); CALCIUM 9.1 mg/dL (8.4-10.5); GFR NON-AFRICAN AMERICAN > 60
[2018-07-21] MEDS: Enoxaparin 40 mg Syringe SC SCH (11:02)
[2018-07-21] MEDS: Valproate 750 MG in Sodium Chloride 0.9% 100 ML IVPB SCH ×2 (11:03→22:14)
--- NOTE | 2018-07-21 12:41 | CP.PCM.PN ---
<Jimmy Angel - Last Filed: 07/21/18 12:38> Subjective - Date & Time of Evaluation Date of Evaluation: 07/21/18 Time of Evaluation: 09:30 - Subjective Subjective: INTERNAL MEDICINE PROGRESS NOTE FOR DR. JAVIER Angel PGY1 Pt seen and examined at bedside this am. No acute events overnight. Pt is minimally verbal, obeys commands. 12 point ROS unable to be obtained Objective - Vital Signs/Intake and Output Vital Signs (last 24 hours): Temp Pulse Resp BP Pulse Ox 97.3 F L 71 20 106/75 97 07/21/18 12:00 07/21/18 12:00 07/21/18 12:00 07/21/18 12:00 07/21/18 00:00 Intake and Output: 07/21/18 07/21/18 06:59 18:59 Intake Total 200 Balance 200 - Medications Medications: Current Medications Amiodarone HCl (Cordarone) 400 mg PO DAILY [facility] Last Admin: 07/21/18 11:04 Dose: 400 mg Artificial Tears (Puralube Opht Oint) 1 appl OU Q4H PRN PRN Reason: Dry eyes Last Admin: 07/19/18 18:00 Dose: 1 drop Artificial Tears (Refresh Opth Soln) 0.3 ml OU Q4H PRN PRN Reason: Dry eyes Last Admin: 07/09/18 10:37 Dose: 2 d Aspirin (Aspirin Chewable) 81 mg PO DAILY [facility] Last Admin: 07/21/18 11:02 Dose: 81 mg Carvedilol (Coreg) 12.5 mg PO BID [facility] Last Admin: 07/21/18 11:04 Dose: 12.5 mg Enoxaparin Sodium (Lovenox) 40 mg SC DAILY [facility]; Protocol Last Admin: 07/21/18 11:02 Dose: 40 mg Famotidine (Pepcid) 20 mg IVP DAILY [facility] Last Admin: 07/21/18 11:04 Dose: 20 mg Valproate Sodium 750 mg/ (Sodium Chloride) 107.5 mls @ 100 mls/hr IVPB Q12H [facility] Last Admin: 07/21/18 11:03 Dose: 100 mls/hr Lisinopril (Zestril) 5 mg PO DAILY [facility] Last Admin: 07/21/18 11:04 Dose: 5 mg - Labs Labs: 07/21/18 07:45 07/21/18 07:45 PT 12.7 SECONDS (9.4-12.5) H 07/09/18 21:10 INR 1.14 07/09/18 21:10 APTT 50.0 Seconds (26.9-38.3) H 07/12/18 04:00 - Constitutional Appears: Well, Non-toxic, No Acute Distress - Head Exam Head Exam: NORMAL INSPECTION - Eye Exam Eye Exam: EOMI, Normal appearance Pupil Exam: PERRL - ENT Exam ENT Exam: Mucous Membranes Moist, Normal Exam - Neck Exam Neck Exam: Normal Inspection - Respiratory Exam Respiratory Exam: Clear to Ausculation Bilateral, NORMAL BREATHING PATTERN - Cardiovascular Exam Cardiovascular Exam: REGULAR RHYTHM, +S1, +S2, Murmur - GI/Abdominal Exam GI & Abdominal Exam: Soft. absent: Tenderness - Extremities Exam Extremities Exam: Normal Inspection. absent: Calf Tenderness - Back Exam Back Exam: NORMAL INSPECTION - Neurological Exam Neurological Exam: Alert, Awake - Psychiatric Exam Psychiatric exam: Normal Affect - Skin Skin Exam: Dry, Intact, Warm Assessment and Plan - Assessment and Plan (Free Text) Assessment: 48 year old male presented to the emergency department, with unknown past medical history brought in by ambulance after a witnessed cardiac arrest with ventricular fibrillation. s/p CPR for 25 minutes, 3x epinephrines, 2 narcans, 5 shocks and 3x Amiodarone in the field. Pt achieved ROSC and was taken off code freeze w/ in 72 hours. Pt monitored in ICU, subsequently extubated and transferred to telemetry. Plan: AMS 2/2 cardiac arrest - likely 2/2 anoxic brain injury - Current awake and alert, obeys commands, however generally non-verbal. Speaks few words. - continue depakote IB per neuro recs - pending Neuro re-evaluation - tolerating dysphagia diet - Brain MRI (07/11): no acute intracranial findings - Head CT (07/10): "No acute abnormalities. No significant findings to account for clinical presentation. No significant interval change compared to prior examination. Head CT (07/08): Supobtimal diagnostic quality due to extensive beam hardening artifacts patient motion. Allowing for this, no acute intracranial abnormalities. - Video EEG 07/11: Moderate to severe non specific diffuse disturbance of cortical activity, in keeping with a diffuse chase matter dysfunction. The findings do not suggest a specific etiology S/P severe sepsis 2/2 aspiration pneumonia - remains afebrile, no tachycardia, leukocytosis downtrending, procalcitonin 0.11 - received treatment of doxy/zosyn - tolerating nectar thick dysphagia diet per speech therapist recs Cardiac Arrest in the setting of ventricular fibrillation s/p ROSC - s/p witnessed cardiac arrest with ventricular fibrillation. s/p CPR for 25 minutes, 3x epinephrine, 2x narcan, 5 shocks & 3x Amiodarone. Approximate downtime 25minutes. s/p code freeze completed at 5:30 pm 07/09 - Continue on carvedilol 12.5mg & lisinopril 5mg - Continue oral amiodarone 400mg per cardio recs - Pt was initially scheduled for cardiac cath however pt is unable to understand risks/benefits of the procedure and provide consent. - Urine tox: (+) opioids and cannibinoids - Hemoglobin A1C - 5.0 - lipid panel - Chol 184, LDL - 84, HDL - 85 - TSH/T4 - TSH = 6.37, T4 = wnl NSTEMI - initial EKG showed NSR @ 68. L axis deviation, Initial troponins 07/08:0.06, 07/08:9.05, 07/09:7.6. - Heparin started x 5d. Hgb dropped from 13.5 to 11.2. Hep discontinued on 07/13 & switched to lovenox 40sc daily on 07/13 - cardiac cath pending improvement in neurological status Severe cardiomyopathy w/ reduced EF in the setting of cardiac arrest - Echo: LVEF of 13%, left ventricle is normal size, normal left ventricular wall thickness, systolic function is severely impaired, significant regional wall motion abnormalities noted, mitral regurgitation is mild to moderate, trace aortic regurgitation. - CXR 07/14: No significant interval changes noted since the prior exam - Heparin discontinued. CXR, physical not revealing signs of fluid overload, diuretics not required at the moment. No longer on dobutamine gtt - cardiology recs pending Hepatis B HepBsAg (+). Confirmed positive with HepBsAg neutralization Viral load pending GI/DVT PPx: Pepcid/lovenox Dispo: - PT recommending [facility]. Pending placements - Spoke with family member, Jessica Denson @1000 07/21 She was updated on clinical and neurological status of pt. She reports she had seen pt on 07/08/18. All questions were answered during conversation Case reviewed with attending physician, Dr. Carmela Angel PGY1 <Brayden Garcia - Last Filed: 07/23/18 17:32> Objective - Vital Signs/Intake and Output Vital Signs (last 24 hours): Temp Pulse Resp BP Pulse Ox 98 F 72 18 105/69 98 07/23/18 16:24 07/23/18 16:24 07/23/18 16:24 07/23/18 16:24 07/23/18 16:24 Intake and Output: 07/23/18 07/23/18 06:59 18:59 Intake Total 1620 Output Total 1051 Balance 569 - Medications Medications: Current Medications Amiodarone HCl (Cordarone) 400 mg PO DAILY [facility] Last Admin: 07/23/18 09:34 Dose: 400 mg Artificial Tears (Puralube Opht Oint) 1 appl OU Q4H PRN PRN Reason: Dry eyes Last Admin: 07/19/18 18:00 Dose: 1 drop Artificial Tears (Refresh Opth Soln) 0.3 ml OU Q4H PRN PRN Reason: Dry eyes Last Admin: 07/09/18 10:37 Dose: 2 d Aspirin (Aspirin Chewable) 81 mg PO DAILY [facility] Last Admin: 07/23/18 09:34 Dose: 81 mg Carvedilol (Coreg) 12.5 mg PO BID [facility] Last Admin: 07/23/18 17:08 Dose: 12.5 mg Clopidogrel Bisulfate (Plavix) 75 mg PO DAILY [facility] Divalproex Sodium (Depakote Dr(*Bid*)) 1,000 mg PO BID [facility] Last Admin: 07/23/18 17:08 Dose: 1,000 mg Famotidine (Pepcid) 20 mg PO DAILY [facility] Lisinopril (Zestril) 5 mg PO DAILY [facility] Last Admin: 07/23/18 09:35 Dose: 5 mg - Labs Labs: 07/23/18 06:10 07/23/18 06:10 PT 12.7 SECONDS (9.4-12.5) H 07/09/18 21:10 INR 1.14 07/09/18 21:10 APTT 50.0 Seconds (26.9-38.3) H 07/12/18 04:00 Attending/Attestation - Attestation I have personally seen and examined this patient.: Yes I have fully participated in the care of the patient.: Yes I have reviewed all pertinent clinical information, including history, physical exam and plan: Yes Notes (Text): 07/23/18 17:26 Attending note; Patient seen and examined with resident. Patient is alert and awake. Moving all extremities. Able to speak few words. Still with expressive aphasia. Patient is more alert and awake. Not in any acute distress. Patient is a 48 year old male with unknown past medical history that presented to the emergency room s/p cardiac arrest and ventricular fibrillation. 1. S/P V-fib arrest. S/P hypothermia protocol. NSTEMI. Dilated cardiomyopathy. Continue amiodarone and ASA. Continue Lisinopril and Coreg. Cardiology recommendations appreciated. 2D echo showed LVEF of 13%, left ventricle is normal size, normal left ventricular wall thickness, systolic function is severely impaired, significant regional wall motion abnormalities noted, mitral regurgitation is mild to moderate, trace aortic regurgitation. case discussed with cardiology in detail today. Continue medical management for now. 2. S/P severe sepsis secondary to aspiration pneumonia. S/P treatment with Doxcycline and Zosyn. Blood and urine cultures with no growth. CT chest/abdomen/pelvis on 07/08/2018 showed findings in the lung may represent pulmonary edema or aspiration pneumonitis, moderate bilateral pleural effusions, no acute findings in the abdomen or pelvis; fluid filled distended stomach, fluid in the small bowel loops, and fluid filled mildly distended colon. 3. S/P Vent dependent respiratory failure. S/P extubation 07/15/18. Currently patient is alert and awake. Stable respiratory status . 4. Acute anoxic encephalopathy. Neurology recommendations appreciated. Slowly improving neurological status .follows most commands but with aphasia. Continue seizure precautions. Continue Depakote. Head CT 07/10/18 showed no acute intracranial abnormalities. Brain MRI showed no acute cranial findings. Continue neurochecks. EEG per neurologist showed moderate to severe nonspecific diffuse disturbance of cortical activity, in keeping with the diffuse chase matter dysfunction; findings do not suggest a specific etiology. Patient is tolerating diet. Speech and swallow evaluation appreciated. 5. Transaminitis. Downtrending. Continue to monitor. 6. Drug abuse. Urine drug screen positive for opioids and cannabinoids. 7. GI/DVT prophylaxis. Pepcid/Lovenox. PT evaluation requested. Case discussed with social service agency director in detail for discharge planning. 07/23/18 17:31
--- NOTE | 2018-07-21 13:09 | PN ---
DATE: 07/21/2018 CARDIOLOGY FOLLOWUP SUBJECTIVE: The patient is in bed. The patient remains confused, but in no distress. PHYSICAL EXAMINATION VITAL SIGNS: Blood pressure 110/71 and heart rates in the 60s. NECK: Negative JVD. LUNGS: Without rales. HEART: Reveals S1 and S2. EXTREMITIES: Without edema. LABORATORY DATA: Hemoglobin is 12. Chemistries; BUN and creatinine are normal. IMPRESSION: 1. Status post ventricular tachycardia arrest. 2. Diabetic cardiomyopathy. 3. Opioid abuse. 4. Anoxic encephalopathy. PLAN: Given these findings, the patient's arrhythmia as well as his hemodynamic is well controlled on medical therapy. We will continue medical therapy which should include his aspirin, amiodarone, beta-blockers and SYLWIA inhibitors. Kelby Guerrero MD
--- NOTE | 2018-07-21 23:29 | PN ---
DATE: 07/21/2018 SUBJECTIVE: The patient is in bed was seen earlier this morning. No fevers, no chills. No nausea. PHYSICAL EXAMINATION VITAL SIGNS: Temperature is 98, blood pressure is 110/70, respiratory rate is 16. HEENT: Unremarkable. NECK: Supple. LUNGS: Have decreased breath sounds. HEART: Normal S1 and S2. ABDOMEN: Soft and nontender. LABORATORY EXAMINATION: Reveals a white count of 9.1, hemoglobin of 12, platelets of 345, BUN of 29, creatinine of 0.9. Urinalysis is noted and serology is noted. ASSESSMENT AND PLAN: This is a 48-year-old male was admitted with acute change in mental status, cardiac arrest, anoxic brain injury, awake and responsive, [id number] myocardial infarction, severe cardiomyopathy, ventricular fibrillation. Currently off of antibiotics. Awaiting for hepatitis B DNA. We will follow closely with you. The patient's white count today is 9.1. Ever Miller MD
[2018-07-22 06:42] LABS: BASO # 0.02 K/mm3 (0.0-2.0); BASO % 0.3 % (0.0-3.0); EOS # 0.1 (0.0-0.7); EOS % 1.1 % (1.5-5.0); HEMOGLOBIN 11.8 g/dL (14.0-18.0); LYMPH # 1.8 (1.2-3.4); MEAN CELL VOLUME 98.7 fl (80.0-105.0); MEAN CORPUSCULAR HEMOGLOBIN 31.2 pg (25.0-35.0); MEAN CORPUSCULAR HGB CONC 31.6 g/dl (31.0-37.0); MEAN PLATELET VOLUME 10.2 fl (7.0-11.0); MONO # 0.5 (0.1-0.6); MONO % 7.1 % (1.0-6.0); RBC 3.78 10^6/uL (3.5-6.1); RED CELL DISTRIBUTION WIDTH 12.7 % (11.5-14.5); WHITE BLOOD COUNT 7.6 10^3/uL (4.5-11.0)
[2018-07-22 07:20] LABS: ALBUMIN 3.4 g/dL (3.0-4.8); ALT/SGPT 42 U/L (7-56); AST/SGOT 61 U/L (17-59); BLOOD UREA NITROGEN 28 mg/dL (7-21); CALCIUM 8.8 mg/dL (8.4-10.5); GFR NON-AFRICAN AMERICAN > 60
--- NOTE | 2018-07-22 09:56 | CP.PCM.PN ---
<Jimmy Angel - Last Filed: 07/22/18 09:51> Subjective - Date & Time of Evaluation Date of Evaluation: 07/22/18 Time of Evaluation: 09:30 - Subjective Subjective: INTERNAL MEDICINE PROGRESS NOTE FOR DR. JAVIER Angel PGY1 Pt seen and examined at bedside this am. No acute events overnight. Pt is more alert and verbal today. He is asking "what happened" and how he got to hospital. Pt reports the last thing he remembers was that he was at a [employer] but doesn't recall what he was doing. He is still not able to provide ROS Objective - Vital Signs/Intake and Output Vital Signs (last 24 hours): Temp Pulse Resp BP Pulse Ox 97.9 F 61 20 115/79 98 07/22/18 08:30 07/22/18 08:30 07/22/18 08:30 07/22/18 08:30 07/22/18 08:30 Intake and Output: 07/22/18 07/22/18 06:59 18:59 Intake Total 360 Output Total 100 Balance 260 - Medications Medications: Current Medications Amiodarone HCl (Cordarone) 400 mg PO DAILY [facility] Last Admin: 07/21/18 11:04 Dose: 400 mg Artificial Tears (Puralube Opht Oint) 1 appl OU Q4H PRN PRN Reason: Dry eyes Last Admin: 07/19/18 18:00 Dose: 1 drop Artificial Tears (Refresh Opth Soln) 0.3 ml OU Q4H PRN PRN Reason: Dry eyes Last Admin: 07/09/18 10:37 Dose: 2 d Aspirin (Aspirin Chewable) 81 mg PO DAILY [facility] Last Admin: 07/21/18 11:02 Dose: 81 mg Carvedilol (Coreg) 12.5 mg PO BID [facility] Last Admin: 07/21/18 18:52 Dose: 12.5 mg Enoxaparin Sodium (Lovenox) 40 mg SC DAILY [facility]; Protocol Last Admin: 07/21/18 11:02 Dose: 40 mg Famotidine (Pepcid) 20 mg IVP DAILY [facility] Last Admin: 07/21/18 11:04 Dose: 20 mg Valproate Sodium 750 mg/ (Sodium Chloride) 107.5 mls @ 100 mls/hr IVPB Q12H [facility] Last Admin: 07/21/18 22:14 Dose: 100 mls/hr Lisinopril (Zestril) 5 mg PO DAILY [facility] Last Admin: 07/21/18 11:04 Dose: 5 mg - Labs Labs: 07/22/18 06:00 07/22/18 06:00 PT 12.7 SECONDS (9.4-12.5) H 07/09/18 21:10 INR 1.14 07/09/18 21:10 APTT 50.0 Seconds (26.9-38.3) H 07/12/18 04:00 - Constitutional Appears: Well, Non-toxic, No Acute Distress - Head Exam Head Exam: NORMAL INSPECTION - Eye Exam Eye Exam: EOMI, Normal appearance Pupil Exam: PERRL - ENT Exam ENT Exam: Mucous Membranes Moist, Normal Exam - Neck Exam Neck Exam: Normal Inspection - Respiratory Exam Respiratory Exam: Clear to Ausculation Bilateral, NORMAL BREATHING PATTERN - Cardiovascular Exam Cardiovascular Exam: REGULAR RHYTHM, +S1, +S2, Murmur - GI/Abdominal Exam GI & Abdominal Exam: Soft. absent: Tenderness - Extremities Exam Extremities Exam: Normal Inspection. absent: Calf Tenderness - Back Exam Back Exam: NORMAL INSPECTION - Neurological Exam Neurological Exam: Alert, Awake - Psychiatric Exam Psychiatric exam: Normal Affect - Skin Skin Exam: Dry, Intact, Warm Assessment and Plan - Assessment and Plan (Free Text) Assessment: 48 year old male presented to the emergency department, with unknown past medical history brought in by ambulance after a witnessed cardiac arrest with ventricular fibrillation. s/p CPR for 25 minutes, 3x epinephrines, 2 narcans, 5 shocks and 3x Amiodarone in the field. Pt achieved ROSC and was taken off code freeze w/ in 72 hours. Pt monitored in ICU, subsequently extubated and transferred to telemetry. Plan: AMS 2/2 cardiac arrest - likely 2/2 anoxic brain injury - Current awake and alert, obeying commands, - continue depakote IB per neuro recs - pending Neuro re-evaluation - tolerating dysphagia diet - Brain MRI (07/11): no acute intracranial findings - Head CT (07/10): "No acute abnormalities. No significant findings to account for clinical presentation. No significant interval change compared to prior examination. Head CT (07/08): Supobtimal diagnostic quality due to extensive beam hardening artifacts patient motion. Allowing for this, no acute intracranial abnormalities. - Video EEG 07/11: Moderate to severe non specific diffuse disturbance of cortical activity, in keeping with a diffuse chase matter dysfunction. The findings do not suggest a specific etiology S/P severe sepsis 2/2 aspiration pneumonia - remains afebrile, no tachycardia, leukocytosis downtrending, procalcitonin 0.11 - received treatment of doxy/zosyn - tolerating nectar thick dysphagia diet per speech therapist recs Cardiac Arrest in the setting of ventricular fibrillation s/p ROSC - s/p witnessed cardiac arrest with ventricular fibrillation. s/p CPR for 25 minutes, 3x epinephrine, 2x narcan, 5 shocks & 3x Amiodarone. Approximate downtime 25minutes. s/p code freeze completed at 5:30 pm 07/09 - Continue on carvedilol 12.5mg & lisinopril 5mg - Continue oral amiodarone 400mg per cardio recs - Pt was initially scheduled for cardiac cath however pt is unable to understand risks/benefits of the procedure and provide consent. - Urine tox: (+) opioids and cannibinoids - Hemoglobin A1C - 5.0 - lipid panel - Chol 184, LDL - 84, HDL - 85 - TSH/T4 - TSH = 6.37, T4 = wnl NSTEMI - initial EKG showed NSR @ 68. L axis deviation, Initial troponins 07/08:0.06, 07/08:9.05, 07/09:7.6. - Heparin started x 5d. Hgb dropped from 13.5 to 11.2. Hep discontinued on 07/13 & switched to lovenox 40sc daily on 07/13 - cardiac cath pending improvement in neurological status Severe cardiomyopathy w/ reduced EF in the setting of cardiac arrest - Echo: LVEF of 13%, left ventricle is normal size, normal left ventricular wall thickness, systolic function is severely impaired, significant regional wall motion abnormalities noted, mitral regurgitation is mild to moderate, trace aortic regurgitation. - CXR 07/14: No significant interval changes noted since the prior exam - Heparin discontinued. CXR, physical not revealing signs of fluid overload, diuretics not required at the moment. No longer on dobutamine gtt - cardiology recs pending Hepatis B HepBsAg (+). Confirmed positive with HepBsAg neutralization Viral load pending Hypernatremia Resolved with increased po free water intake GI/DVT PPx: Pepcid/lovenox Dispo: - PT recommending [facility]. Pending placements. Case reviewed with attending physician, Dr. Carmela Angel PGY1 <Brayden Garcia - Last Filed: 07/23/18 17:34> Objective - Vital Signs/Intake and Output Vital Signs (last 24 hours): Temp Pulse Resp BP Pulse Ox 98 F 72 18 105/69 98 07/23/18 16:24 07/23/18 16:24 07/23/18 16:24 07/23/18 16:24 07/23/18 16:24 Intake and Output: 07/23/18 07/23/18 06:59 18:59 Intake Total 1620 Output Total 1051 Balance 569 - Medications Medications: Current Medications Amiodarone HCl (Cordarone) 400 mg PO DAILY [facility] Last Admin: 07/23/18 09:34 Dose: 400 mg Artificial Tears (Puralube Opht Oint) 1 appl OU Q4H PRN PRN Reason: Dry eyes Last Admin: 07/19/18 18:00 Dose: 1 drop Artificial Tears (Refresh Opth Soln) 0.3 ml OU Q4H PRN PRN Reason: Dry eyes Last Admin: 07/09/18 10:37 Dose: 2 d Aspirin (Aspirin Chewable) 81 mg PO DAILY [facility] Last Admin: 07/23/18 09:34 Dose: 81 mg Carvedilol (Coreg) 12.5 mg PO BID [facility] Last Admin: 07/23/18 17:08 Dose: 12.5 mg Clopidogrel Bisulfate (Plavix) 75 mg PO DAILY [facility] Divalproex Sodium (Depakote Dr(*Bid*)) 1,000 mg PO BID [facility] Last Admin: 07/23/18 17:08 Dose: 1,000 mg Famotidine (Pepcid) 20 mg PO DAILY [facility] Lisinopril (Zestril) 5 mg PO DAILY [facility] Last Admin: 07/23/18 09:35 Dose: 5 mg - Labs Labs: 07/23/18 06:10 07/23/18 06:10 PT 12.7 SECONDS (9.4-12.5) H 07/09/18 21:10 INR 1.14 07/09/18 21:10 APTT 50.0 Seconds (26.9-38.3) H 07/12/18 04:00 Attending/Attestation - Attestation I have personally seen and examined this patient.: Yes I have fully participated in the care of the patient.: Yes I have reviewed all pertinent clinical information, including history, physical exam and plan: Yes Notes (Text): 07/23/18 17:32 Attending note; Patient seen and examined with resident. Patient is more alert and awake. Moving all extremities. Able to speak few words. Still with expressive aphasia. Able to follow all the commands. Patient is a 48 year old male with unknown past medical history that presented to the emergency room s/p cardiac arrest and ventricular fibrillation. 1. S/P V-fib arrest. S/P hypothermia protocol. NSTEMI. Dilated cardiomyopathy. Continue amiodarone and ASA. Continue Lisinopril and Coreg. 2D echo showed LVEF of 13%, left ventricle is normal size, normal left ventricular wall thickness, systolic function is severely impaired, significant regional wall motion abnormalities noted, mitral regurgitation is mild to moderate, trace aortic regurgitation. 2. S/P severe sepsis secondary to aspiration pneumonia. S/P treatment with Doxcycline and Zosyn. Blood and urine cultures with no growth. CT chest/abdomen/pelvis on 07/08/2018 showed findings in the lung may represent pulmonary edema or aspiration pneumonitis, moderate bilateral pleural effusions, no acute findings in the abdomen or pelvis; fluid filled distended stomach, fluid in the small bowel loops, and fluid filled mildly distended colon. 3. Acute anoxic encephalopathy. Slowly improving neurological status .follows most commands but with aphasia. Continue seizure precautions. Continue Depakote. Patient is tolerating diet. Speech and swallow evaluation appreciated. 4. Drug abuse. Urine drug screen positive for opioids and cannabinoids. 5. GI/DVT prophylaxis. Pepcid/Lovenox. PT evaluation appreciated. Subacute rehab recommended. Case discussed with pediatric social worker in detail for discharge planning. 07/23/18 17:34
[2018-07-22] MEDS: Valproate 750 MG in Sodium Chloride 0.9% 100 ML IVPB SCH ×2 (10:56→21:26)
[2018-07-22] MEDS: Enoxaparin 40 mg Syringe SC SCH (11:16)
--- NOTE | 2018-07-23 00:57 | PN ---
DATE: 07/22/2018 SUBJECTIVE: The patient is in bed, in no acute distress, nontoxic. The patient was seen earlier this morning in room 361. PHYSICAL EXAMINATION VITAL SIGNS: Temperature is 97, blood pressure is 120/70 and respiratory rate is 16. HEENT: Unremarkable. NECK: Supple. LUNGS: Have decreased breath sounds. HEART: Normal S1, S2. ABDOMEN: Soft. LABORATORY DATA: Reveals a white count of 7.6, hemoglobin of 11. Chemistries reveal a BUN of 28, creatinine of 0.9. Urinalysis is noted and toxicology is noted. Serology is reviewed. Hepatitis B e antigen is positive. Hepatitis B surface antibody is negative and hepatitis B surface antigen is positive, and waiting for a hepatitis PCR, DNA PCR, which is pending. ASSESSMENT AND PLAN: A 48-year-old male who I had seen earlier today and was admitted with acute change of mental status and cardiac arrest, anoxic brain injury, awake at this point and responsive. The patient did have [id number] myocardial infarction, severe cardiomyopathy, ventricular fibrillation, off of antibiotics with a chronic active hepatitis B, will need treatment, pending a DNA viral load, and the patient's liver enzymes are noted. The AST is 61, ALT is essentially unremarkable. We will follow with you. Ever Miller MD
[2018-07-23 06:44] LABS: BASO # 0.02 K/mm3 (0.0-2.0); BASO % 0.2 % (0.0-3.0); EOS # 0.1 (0.0-0.7); EOS % 1.2 % (1.5-5.0); HEMOGLOBIN 11.3 g/dL (14.0-18.0); LYMPH # 2.1 (1.2-3.4); LYMPH % 24.4 % (22.0-35.0); MEAN CELL VOLUME 97.5 fl (80.0-105.0); MEAN CORPUSCULAR HEMOGLOBIN 31.1 pg (25.0-35.0); MEAN CORPUSCULAR HGB CONC 31.9 g/dl (31.0-37.0); MEAN PLATELET VOLUME 10.2 fl (7.0-11.0); MONO # 0.6 (0.1-0.6); MONO % 7.1 % (1.0-6.0); RBC 3.63 10^6/uL (3.5-6.1); RED CELL DISTRIBUTION WIDTH 12.5 % (11.5-14.5); WHITE BLOOD COUNT 8.4 10^3/uL (4.5-11.0)
[2018-07-23 07:06] LABS: ALBUMIN 3.2 g/dL (3.0-4.8); ALT/SGPT 45 U/L (7-56); AST/SGOT 56 U/L (17-59); BLOOD UREA NITROGEN 23 mg/dL (7-21); CALCIUM 8.7 mg/dL (8.4-10.5); GFR NON-AFRICAN AMERICAN > 60
[2018-07-23] MEDS: Enoxaparin 40 mg Syringe SC SCH (09:34)
[2018-07-23] MEDS: Valproate 750 MG in Sodium Chloride 0.9% 100 ML IVPB SCH (09:35)
--- NOTE | 2018-07-23 09:48 | CP.PCM.PN ---
Subjective - Date & Time of Evaluation Date of Evaluation: 07/23/18 Time of Evaluation: 09:44 - Subjective Subjective: Lizbeth Baldwin DO, PGY-2: Neurology Progress Note for Dr. Hackett Patient was seen and examined at bedside. Patient is able to follow simple commands such as perform finger to nose testing, albeit not that smoothly. He is able to spell the word "world" forward, but not backwards. When asked a question that causes him difficulty, he will think and then not answer the question. He is able to move arms, but cannot walk. He does know why he was hospitalized. In summary neurologic exam shows impaired memory and concentration, weakness sec ondary to deconditioning. Objective - Vital Signs/Intake and Output Vital Signs (last 24 hours): Temp Pulse Resp BP Pulse Ox 98.4 F 62 18 117/83 98 07/23/18 07:50 07/23/18 07:50 07/23/18 07:50 07/23/18 07:50 07/23/18 07:50 Intake and Output: 07/23/18 07/23/18 06:59 18:59 Intake Total 1620 Output Total 1051 Balance 569 - Medications Medications: Current Medications Amiodarone HCl (Cordarone) 400 mg PO DAILY [facility] Last Admin: 07/23/18 09:34 Dose: 400 mg Artificial Tears (Puralube Opht Oint) 1 appl OU Q4H PRN PRN Reason: Dry eyes Last Admin: 07/19/18 18:00 Dose: 1 drop Artificial Tears (Refresh Opth Soln) 0.3 ml OU Q4H PRN PRN Reason: Dry eyes Last Admin: 07/09/18 10:37 Dose: 2 d Aspirin (Aspirin Chewable) 81 mg PO DAILY [facility] Last Admin: 07/23/18 09:34 Dose: 81 mg Carvedilol (Coreg) 12.5 mg PO BID [facility] Last Admin: 07/23/18 09:35 Dose: 12.5 mg Enoxaparin Sodium (Lovenox) 40 mg SC DAILY [facility]; Protocol Last Admin: 07/23/18 09:34 Dose: 40 mg Famotidine (Pepcid) 20 mg IVP DAILY [facility] Last Admin: 07/23/18 09:34 Dose: 20 mg Valproate Sodium 750 mg/ (Sodium Chloride) 107.5 mls @ 100 mls/hr IVPB Q12H [facility] Last Admin: 07/23/18 09:35 Dose: 100 mls/hr Lisinopril (Zestril) 5 mg PO DAILY [facility] Last Admin: 07/23/18 09:35 Dose: 5 mg - Labs Labs: 07/23/18 06:10 07/23/18 06:10 PT 12.7 SECONDS (9.4-12.5) H 07/09/18 21:10 INR 1.14 07/09/18 21:10 APTT 50.0 Seconds (26.9-38.3) H 07/12/18 04:00 - Constitutional Appears: Well, Non-toxic - Head Exam Head Exam: ATRAUMATIC, NORMOCEPHALIC - Eye Exam Eye Exam: EOMI, Normal appearance, PERRL - ENT Exam ENT Exam: Mucous Membranes Moist - Neck Exam Neck Exam: Normal Inspection - Respiratory Exam Respiratory Exam: NORMAL BREATHING PATTERN. absent: Accessory Muscle Use - Cardiovascular Exam Cardiovascular Exam: RRR, +S1, +S2 - GI/Abdominal Exam GI & Abdominal Exam: Soft, Normal Bowel Sounds. absent: Rebound - Extremities Exam Extremities Exam: Normal Inspection. absent: Calf Tenderness - Neurological Exam Neurological Exam: Alert, Awake, CN II-XII Intact Neuro motor strength exam: Left Upper Extremity: 3, Right Upper Extremity: 3, Left Lower Extremity: 2/1, Right Lower Extremity: 2/1 Additional comments: generalized weakness 4/5; no focal neurologic deficits; memory, concentration, and attention impaired, some dysarthia, no aphasia - Psychiatric Exam Psychiatric exam: Depressed - Skin Skin Exam: Dry, Intact, Normal Color, Warm Assessment and Plan - Assessment and Plan (Free Text) Assessment: 48 year old black male with an unknown medical history who sustained a witnessed cardiac arrest in the field with the original rhythm being ventricular fibrillation. CPR was conducted for 25 minutes with the utilization of epinephrine, narcan, amiodarone, and defibrillation. ROSC was obtained. Patient has finished receiving therapeutic hypothermia for 24 hours and has been rewarmed. 1) Cardiac Arrest with ROSC obtained s/p therapeutic hypothermia - Repeat CT of the head reports no evidence of anoxic brain injury; however, given the discrepancy with the clinical exam noted today, we will order for an MRI of the brain to better evaluate for hypoxic brain injury and assess the posterior fossa. - Video EEG interpretation states the findings are in keeping with a moderate to severe non specific disturbance of cortical activity, in keeping with a diffuse chase matter dysfunction. The findings do not suggest a specific etiology. - Patient would benefit from cardiac catheterization and subacute rehab ilitation. Case was reviewed and discussed with attending physician, Dr. Hackett
--- NOTE | 2018-07-23 14:28 | PN ---
DATE: 07/23/2018 CARDIOLOGY FOLLOWUP SUBJECTIVE: The patient is awake, alert, is mildly confused, without chest pain. PHYSICAL EXAMINATION: VITAL SIGNS: Blood pressure 117/83, heart rate is in the 60s. NECK: Negative JVD. LUNGS: Without rales. HEART: Reveals S1 and S2. EXTREMITIES: Without edema. LABORATORY DATA: Hemoglobin is 11.3. Chemistries, BUN and creatinine are unremarkable. IMPRESSION: 1. Status post ventricular fibrillation arrest. 2. Dilated cardiomyopathy. 3. Probable anoxic encephalopathy. 4. Non-ST elevation myocardial infarction. 5. Coronary artery disease. Given these findings, after this time, we are finally able to obtain consent for cardiac catheterization through his sister, who is here visiting and is the closest of kin. Risks, benefits of the procedure were discussed with the patient's sister as well as the patient and they all agreed to the procedure. We will schedule for the morning. Kelby Guerrero MD
[2018-07-23] MEDS: Divalproex 500 mg DR(BID formulation) PO SCH (17:08)
--- NOTE | 2018-07-23 17:31 | CP.PCM.PN ---
<Jimmy Angel - Last Filed: 07/23/18 17:21> Subjective - Date & Time of Evaluation Date of Evaluation: 07/23/18 Time of Evaluation: 09:30 - Subjective Subjective: HISTORY & PHYSICAL NOTE FOR DR. JAVIER Angel PGY1 Pt seen and examined at bedside this am. No acute events overnight. Pt is more awake and verbal today. He obeys commands and is tolerating his diet. He converses well, remembers his nickname. He denies 12 point ROS Objective - Vital Signs/Intake and Output Vital Signs (last 24 hours): Temp Pulse Resp BP Pulse Ox 98 F 72 18 105/69 98 07/23/18 16:24 07/23/18 16:24 07/23/18 16:24 07/23/18 16:24 07/23/18 16:24 Intake and Output: 07/23/18 07/23/18 06:59 18:59 Intake Total 1620 Output Total 1051 Balance 569 - Medications Medications: Current Medications Amiodarone HCl (Cordarone) 400 mg PO DAILY [facility] Last Admin: 07/23/18 09:34 Dose: 400 mg Artificial Tears (Puralube Opht Oint) 1 appl OU Q4H PRN PRN Reason: Dry eyes Last Admin: 07/19/18 18:00 Dose: 1 drop Artificial Tears (Refresh Opth Soln) 0.3 ml OU Q4H PRN PRN Reason: Dry eyes Last Admin: 07/09/18 10:37 Dose: 2 d Aspirin (Aspirin Chewable) 81 mg PO DAILY [facility] Last Admin: 07/23/18 09:34 Dose: 81 mg Carvedilol (Coreg) 12.5 mg PO BID [facility] Last Admin: 07/23/18 17:08 Dose: 12.5 mg Clopidogrel Bisulfate (Plavix) 75 mg PO DAILY [facility] Divalproex Sodium (Depakote Dr(*Bid*)) 1,000 mg PO BID [facility] Last Admin: 07/23/18 17:08 Dose: 1,000 mg Famotidine (Pepcid) 20 mg PO DAILY [facility] Lisinopril (Zestril) 5 mg PO DAILY [facility] Last Admin: 07/23/18 09:35 Dose: 5 mg - Labs Labs: 07/23/18 06:10 07/23/18 06:10 PT 12.7 SECONDS (9.4-12.5) H 07/09/18 21:10 INR 1.14 07/09/18 21:10 APTT 50.0 Seconds (26.9-38.3) H 07/12/18 04:00 - Constitutional Appears: Well, Non-toxic, No Acute Distress - Head Exam Head Exam: NORMAL INSPECTION - Eye Exam Eye Exam: EOMI, Normal appearance Pupil Exam: PERRL - ENT Exam ENT Exam: Mucous Membranes Moist, Normal Exam - Neck Exam Neck Exam: Normal Inspection - Respiratory Exam Respiratory Exam: Clear to Ausculation Bilateral, NORMAL BREATHING PATTERN - Cardiovascular Exam Cardiovascular Exam: REGULAR RHYTHM, +S1, +S2, Murmur - GI/Abdominal Exam GI & Abdominal Exam: Soft. absent: Tenderness - Extremities Exam Extremities Exam: Normal Inspection. absent: Calf Tenderness - Back Exam Back Exam: NORMAL INSPECTION - Neurological Exam Neurological Exam: Alert, Awake - Psychiatric Exam Psychiatric exam: Normal Affect - Skin Skin Exam: Dry, Intact, Warm Assessment and Plan - Assessment and Plan (Free Text) Assessment: 48 year old male presented to the emergency department, with unknown past medical history brought in by ambulance after a witnessed cardiac arrest with ventricular fibrillation. s/p CPR for 25 minutes, 3x epinephrines, 2 narcans, 5 shocks and 3x Amiodarone in the field. Pt achieved ROSC and was taken off code freeze w/ in 72 hours. Pt monitored in ICU, subsequently extubated and transferred to telemetry Plan: AMS 2/2 cardiac arrest - likely 2/2 anoxic brain injury. Mental status significantly improved - Current awake and alert, obeying commands, - continue depakote po per neuro recs - tolerating dysphagia diet - Brain MRI (07/11): no acute intracranial findings - Head CT (07/10): "No acute abnormalities. No significant findings to account fo r clinical presentation. No significant interval change compared to prior examination. Head CT (07/08): Supobtimal diagnostic quality due to extensive beam hardening artifacts patient motion. Allowing for this, no acute intracranial abnormalities. - Video EEG 07/11: Moderate to severe non specific diffuse disturbance of cortical activity, in keeping with a diffuse chase matter dysfunction. The findings do not suggest a specific etiology NSTEMI - Initial EKG showed NSR @ 68. L axis deviation, Initial troponins 07/08:0.06, 07/08:9.05, 07/09:7.6. - Heparin started x 5d. Hgb dropped from 13.5 to 11.2. Hep discontinued on 07/13 & switched to lovenox 40sc daily on 07/13 - Received loading dose of plavix today. cardiac cath tomorrow am. NPO past midnight S/P severe sepsis 2/2 aspiration pneumonia - remains afebrile, no tachycardia, leukocytosis downtrending, procalcitonin 0.11 - received treatment of doxy/zosyn - tolerating dysphagia diet per speech therapist recs Cardiac Arrest in the setting of ventricular fibrillation s/p ROSC - s/p witnessed cardiac arrest with ventricular fibrillation. s/p CPR for 25 minutes, 3x epinephrine, 2x narcan, 5 shocks & 3x Amiodarone. Approximate downtime 25minutes. s/p code freeze completed at 5:30 pm 07/09 - Continue on carvedilol 12.5mg & lisinopril 5mg - Continue oral amiodarone 400mg per cardio recs - Pt was initially scheduled for cardiac cath however pt is unable to understand risks/benefits of the procedure and provide consent. - Urine tox: (+) opioids and cannibinoids - Hemoglobin A1C - 5.0 - Lipid panel: Chol 184, LDL: 84, HDL: 85 - TSH/T4 - TSH = 6.37, T4 = wnl Severe cardiomyopathy w/ reduced EF in the setting of cardiac arrest - R/o ischemic event with cardiac cath. Pending tomorrow - Echo: LVEF of 13%, left ventricle is normal size, normal left ventricular wall thickness, systolic function is severely impaired, significant regional wall motion abnormalities noted, mitral regurgitation is mild to moderate, trace aortic regurgitation. - CXR 07/14: No significant interval changes noted since the prior exam - Heparin discontinued. CXR, physical not revealing signs of fluid overload, diuretics not required at the moment. No longer on dobutamine gtt Hepatis B HepBsAg (+), HepBsAb Dg <5, HepBsAb neg, Hep B DNA 7.74, HepBeAg Reactive Will refer to [facility] for further followup Patient to follow-up with liver specialist @ [facility] in outpatient setting Hypernatremia Resolved with increased po free water intake GI/DVT PPx: Pepcid/SCD Dispo: PT recommending [facility] Case reviewed with attending physician, Dr. Javier Angel PGY1 <Brayden Garcia - Last Filed: 07/23/18 17:39> Objective - Vital Signs/Intake and Output Vital Signs (last 24 hours): Temp Pulse Resp BP Pulse Ox 98 F 72 18 105/69 98 07/23/18 16:24 07/23/18 16:24 07/23/18 16:24 07/23/18 16:24 07/23/18 16:24 Intake and Output: 07/23/18 07/23/18 06:59 18:59 Intake Total 1620 Output Total 1051 Balance 569 - Medications Medications: Current Medications Amiodarone HCl (Cordarone) 400 mg PO DAILY [facility] Last Admin: 07/23/18 09:34 Dose: 400 mg Artificial Tears (Puralube Opht Oint) 1 appl OU Q4H PRN PRN Reason: Dry eyes Last Admin: 07/19/18 18:00 Dose: 1 drop Artificial Tears (Refresh Opth Soln) 0.3 ml OU Q4H PRN PRN Reason: Dry eyes Last Admin: 07/09/18 10:37 Dose: 2 d Aspirin (Aspirin Chewable) 81 mg PO DAILY [facility] Last Admin: 07/23/18 09:34 Dose: 81 mg Carvedilol (Coreg) 12.5 mg PO BID [facility] Last Admin: 07/23/18 17:08 Dose: 12.5 mg Clopidogrel Bisulfate (Plavix) 75 mg PO DAILY [facility] Divalproex Sodium (Depakote Dr(*Bid*)) 1,000 mg PO BID [facility] Last Admin: 07/23/18 17:08 Dose: 1,000 mg Famotidine (Pepcid) 20 mg PO DAILY [facility] Lisinopril (Zestril) 5 mg PO DAILY [facility] Last Admin: 07/23/18 09:35 Dose: 5 mg - Labs Labs: 07/23/18 06:10 07/23/18 06:10 PT 12.7 SECONDS (9.4-12.5) H 07/09/18 21:10 INR 1.14 07/09/18 21:10 APTT 50.0 Seconds (26.9-38.3) H 07/12/18 04:00 Attending/Attestation - Attestation I have personally seen and examined this patient.: Yes I have fully participated in the care of the patient.: Yes I have reviewed all pertinent clinical information, including history, physical exam and plan: Yes Notes (Text): 07/23/18 17:35 Attending note; Patient seen and examined with resident. Patient is more alert and awake. Moving all extremities. Able to answer questions. much improved. Still with expressive aphasia. Able to follow all the commands. Patient is a 48 year old male with unknown past medical history that presented to the emergency room s/p cardiac arrest and ventricular fibrillation. 1. S/P V-fib arrest. S/P hypothermia protocol. NSTEMI. Dilated cardiomyopathy. Continue amiodarone and ASA. Continue Lisinopril and Coreg. 2D echo showed LVEF of 13%, left ventricle is normal size, normal left ventricular wall thickness, systolic function is severely impaired, significant regional wall motion abnormalities noted, mitral regurgitation is mild to moderate, trace aortic regurgitation. Patient is scheduled for cardiac cath tomorrow. started on Plavix . 2. S/P severe sepsis secondary to aspiration pneumonia. resolved. S/P treatment with Doxcycline and Zosyn. Blood and urine cultures with no growth. 3. Acute anoxic encephalopathy. Resolving. Slowly improving neurological status .follows commands but with some aphasia. Continue seizure precautions. Continue Depakote. Patient is tolerating diet. Speech and swallow evaluation appreciated. 4. Drug abuse. Urine drug screen positive for opioids and cannabinoids. 5. GI/DVT prophylaxis. PT evaluation appreciated. Subacute rehab recommended. Case discussed with social economist in detail for discharge planning.
--- NOTE | 2018-07-24 02:33 | PN ---
DATE: 07/23/2018 SUBJECTIVE: The patient is seen in bed, in no acute distress, nontoxic. PHYSICAL EXAMINATION: VITAL SIGNS: Temperature is 98, blood pressure is 105/60, respiratory rate is 18. HEENT: Unremarkable. NECK: Supple. LUNGS: Have decreased breath sounds. HEART: Normal S1, S2. ABDOMEN: Soft. LABORATORY EXAMINATION: Reveals a white count of 8.4, hemoglobin of 11. BUN of 23, creatinine 0.9. Urinalysis is noted. Serology is noted. Microbiology is reviewed. ASSESSMENT AND PLAN: This is a 48-year-old male who I had seen earlier today, admitted with acute change of mental status, cardiac arrest, anoxic brain injury, awake, and the patient did have [id number] myocardial infarction, severe cardiomyopathy, ventricular fibrillation, off of antibiotics, chronic active hepatitis B, no need treatment, pending DNA viral load. We will follow with you. Ever Miller MD
[2018-07-24 06:47] LABS: BASO # 0.03 K/mm3 (0.0-2.0); BASO % 0.4 % (0.0-3.0); EOS # 0.1 (0.0-0.7); EOS % 1.4 % (1.5-5.0); HEMOGLOBIN 11.3 g/dL (14.0-18.0); LYMPH % 23.4 % (22.0-35.0); MEAN CELL VOLUME 97.2 fl (80.0-105.0); MEAN CORPUSCULAR HEMOGLOBIN 31.2 pg (25.0-35.0); MEAN CORPUSCULAR HGB CONC 32.1 g/dl (31.0-37.0); MEAN PLATELET VOLUME 10.2 fl (7.0-11.0); MONO # 0.7 (0.1-0.6); MONO % 8.6 % (1.0-6.0); RBC 3.62 10^6/uL (3.5-6.1); RED CELL DISTRIBUTION WIDTH 12.4 % (11.5-14.5); WHITE BLOOD COUNT 8.4 10^3/uL (4.5-11.0)
[2018-07-24] MEDS ORDERED: Lidocaine PF 2% (5 ml) Inj (For Cardiac Arrhy) ONE (06:47)
[2018-07-24] MEDS ORDERED: Iodixanol 320 MG/ML 200 ML BOTTLE IV ONE (06:47)
[2018-07-24] MEDS ORDERED: Iodixanol 320 MG/ML 100 ML BOTTLE IV ONE (06:47)
[2018-07-24] MEDS ORDERED: Iohexol 350mgl/ml 50 ML ONE (06:47)
[2018-07-24 06:52] LABS: ALB/GLOB RATIO 1.1 (1.1-1.8); ALBUMIN 3.3 g/dL (3.0-4.8); ALT/SGPT 40 U/L (7-56); AST/SGOT 67 U/L (17-59); BLOOD UREA NITROGEN 21 mg/dL (7-21); CALCIUM 8.6 mg/dL (8.4-10.5); GFR NON-AFRICAN AMERICAN > 60
[2018-07-24] MEDS ORDERED: Iodixanol 320 mg/ml 150 ml Bottle IV ONE (07:37)
[2018-07-24] MEDS ORDERED: Midazolam 2 MG/2 ML VIAL ONE (07:46)
[2018-07-24] MEDS ORDERED: Sodium Chloride 0.9% 1,000 ML IV SCH (08:30)
--- NOTE | 2018-07-24 09:59 | CARDCATH ---
PROCEDURE DATE: 07/24/2018 HISTORY: The patient is a 48-year-old male who presented with cardiac arrest in the field. He was found to have a dilated cardiomyopathy as well as elevated troponins. After extensive search we were able to talk to his sister who signed consent for cardiac catheterization. PROCEDURE: Left heart catheterization with coronary arteriography and left ventriculogram with supra-aortic valvular injection. The right femoral artery was cannulated with 6-Irish sheath. There were no complications. I performed moderate sedation which included the presence of an independent trained observer that assisted in monitoring the patient's level of consciousness and physiologic status. After administration of Versed and fentanyl, my intra service time was 30 minutes. The findings on catheterization revealed a left ventricle that was dilated and diffusely hypokinetic. Estimated ejection fraction of 25%-30%. The patient had a right-dominant circulation. The RCA was within normal limits. The left main artery was unremarkable. The LAD and diagonal vessels were free of critical lesions. The circumflex artery and obtuse marginal branches were within normal limits. Supra-aortic valvular injection revealed no aortic insufficiency. AngioSeal was used to close the femoral artery site. The patient tolerated the procedure well. In summary, the procedure revealed a dilated cardiomyopathy with an EF 25%-30%. There is no coronary artery disease. No supra-aortic valvular no aortic insufficiency was noted. Given these findings, the patient's vent was from a dilated cardiomyopathy with electrical instability. There is no evidence for an ischemic basis for his V-fib. It is likely the elevated troponins were due to his hypotension during his cardiac arrest. Given these findings, we will continue the patient on amiodarone. We will discuss with the family about having the patient have an ICD placed. Kelby Guerrero MD
[2018-07-24] MEDS: Divalproex 500 mg DR(BID formulation) PO SCH ×2 (10:00→17:18)
--- NOTE | 2018-07-24 13:46 | CP.PCM.PN ---
<Jimmy Angel - Last Filed: 07/24/18 13:34> Subjective - Date & Time of Evaluation Date of Evaluation: 07/24/18 Time of Evaluation: 11:00 - Subjective Subjective: INTERNAL MEDICINE PROGRESS NOTE FOR DR. JAVIER Angel PGY1 Pt seen and examined at bedside today. Pt came back from cardiac cath today. He is laying down flat. He is verbal, making sense, and denying complaints. Objective - Vital Signs/Intake and Output Vital Signs (last 24 hours): Temp Pulse Resp BP Pulse Ox 98.0 F 58 L 18 104/79 100 07/24/18 12:00 07/24/18 12:00 07/24/18 12:00 07/24/18 12:00 07/24/18 07:57 Intake and Output: 07/24/18 07/24/18 06:59 18:59 Intake Total 1800 Output Total 1000 Balance 800 - Medications Medications: Current Medications Amiodarone HCl (Cordarone) 400 mg PO BRKDIN [facility] Artificial Tears (Puralube Opht Oint) 1 appl OU Q4H PRN PRN Reason: Dry eyes Last Admin: 07/19/18 18:00 Dose: 1 drop Artificial Tears (Refresh Opth Soln) 0.3 ml OU Q4H PRN PRN Reason: Dry eyes Last Admin: 07/09/18 10:37 Dose: 2 d Carvedilol (Coreg) 12.5 mg PO BID [facility] Last Admin: 07/24/18 10:00 Dose: Not Given Divalproex Sodium (Depakote Dr(*Bid*)) 1,000 mg PO BID [facility] Last Admin: 07/24/18 10:00 Dose: Not Given Famotidine (Pepcid) 20 mg PO DAILY [facility] Last Admin: 07/24/18 10:00 Dose: Not Given Sodium Chloride (Sodium Chloride 0.9%) 1,000 mls @ 100 mls/hr IV .Q10H [facility] Stop: 07/24/18 14:00 Last Admin: 07/24/18 08:52 Dose: 100 mls/hr Lisinopril (Zestril) 5 mg PO DAILY [facility] Last Admin: 07/24/18 10:00 Dose: Not Given - Labs Labs: 07/24/18 06:00 07/24/18 06:00 PT 12.7 SECONDS (9.4-12.5) H 07/09/18 21:10 INR 1.14 07/09/18 21:10 APTT 50.0 Seconds (26.9-38.3) H 07/12/18 04:00 - Constitutional Appears: Well, Non-toxic, No Acute Distress - Head Exam Head Exam: NORMOCEPHALIC - Eye Exam Eye Exam: EOMI, Normal appearance - ENT Exam ENT Exam: Mucous Membranes Moist, Normal Exam - Neck Exam Neck Exam: Normal Inspection - Respiratory Exam Respiratory Exam: Clear to Ausculation Bilateral, NORMAL BREATHING PATTERN - Cardiovascular Exam Cardiovascular Exam: REGULAR RHYTHM, +S1, +S2 - GI/Abdominal Exam GI & Abdominal Exam: Soft. absent: Tenderness - Extremities Exam Extremities Exam: Normal Inspection. absent: Calf Tenderness Additional comments: Dressing over R femoral region - Back Exam Back Exam: NORMAL INSPECTION - Neurological Exam Neurological Exam: Alert, Awake, Oriented x3 - Psychiatric Exam Psychiatric exam: Normal Affect, Normal Mood - Skin Skin Exam: Dry, Intact, Warm Assessment and Plan - Assessment and Plan (Free Text) Assessment: 48 year old male presented to the emergency department, with unknown past medical history brought in by ambulance after a witnessed cardiac arrest with ventricular fibrillation. s/p CPR for 25 minutes, 3x epinephrines, 2 narcans, 5 shocks and 3x Amiodarone in the field. Pt achieved ROSC and was taken off code freeze w/ in 72 hours. Pt monitored in ICU, subsequently extubated and transferred to telemetry Plan: AMS 2/2 cardiac arrest - likely 2/2 anoxic brain injury. Mental status significantly improve,Currently awake and alert, obeying commands, tolerating dysphagia diet - continue depakote po per neuro recs - Brain MRI (07/11): no acute intracranial findings - Head CT (07/10): "No acute abnormalities. No significant findings to account for clinical presentation. No significant interval change compared to prior examination. Head CT (07/08): Supobtimal diagnostic quality due to extensive beam hardening artifacts patient motion. Allowing for this, no acute intracranial abnormalities. - Video EEG 07/11: Moderate to severe non specific diffuse disturbance of cortical activity, in keeping with a diffuse chase matter dysfunction. The findings do not suggest a specific etiology NSTEMI with severe non-ischemic cardiomyopathy w/ reduced EF in the setting of cardiac arrest - s/p witnessed cardiac arrest with ventricular fibrillation. s/p CPR for 25 minutes, 3x epinephrine, 2x narcan, 5 shocks & 3x Amiodarone. Approximate downtime 25minutes. s/p code freeze completed at 5:30 pm 07/09 - s/p cardiac cath 08/16/18 revealing no ischemic lesions, per cardiology. - Continue on carvedilol 12.5mg & lisinopril 5mg - Continue oral amiodarone 400mg per cardio recs - Per cardiology, will discuss about ICD - Heparin discontinued. CXR, physical not revealing signs of fluid overload, diuretics not required at the moment. No longer on dobutamine gtt - Initial EKG showed NSR @ 68. L axis deviation, Initial troponins 07/08:0.06, 07/08:9.05, 07/09:7.6. - Urine tox: (+) opioids and cannibinoids - Hemoglobin A1C - 5.0 - Lipid panel: Chol 184, LDL: 84, HDL: 85 - TSH/T4 - TSH = 6.37, T4 = wnl - Echo 07/09/18: LVEF of 13%, left ventricle is normal size, normal left ventricular wall thickness, systolic function is severely impaired, significant regional wall motion abnormalities noted, mitral regurgitation is mild to moderate, trace aortic regurgitation. - CXR 07/14: No significant interval changes noted since the prior exam S/P severe sepsis 2/2 aspiration pneumonia - remains afebrile, no tachycardia, leukocytosis resolved - received treatment of doxy/zosyn - tolerating current diet Hepatis B HepBsAg (+), HepBsAb Dg <5, HepBsAb neg, Hep B DNA 7.74, HepBeAg Reactive Will refer to [facility] for further followup Patient to follow-up with liver specialist @ [facility] in outpatient setting Hypernatremia Resolved with increased po free water intake GI/DVT PPx: Pepcid/SCD Dispo: PT recommending [facility] Case reviewed with attending physician, Dr. Javier Angel PGY1 <Brayden Garcia - Last Filed: 07/25/18 14:38> Objective - Vital Signs/Intake and Output Vital Signs (last 24 hours): Temp Pulse Resp BP Pulse Ox 98.0 F 70 20 122/80 98 07/25/18 06:00 07/25/18 10:06 07/25/18 06:00 07/25/18 10:06 07/25/18 06:00 Intake and Output: 07/25/18 07/25/18 06:59 18:59 Intake Total 840 Output Total 1450 Balance -610 - Medications Medications: Current Medications Amiodarone HCl (Cordarone) 400 mg PO BRKDIN [facility] Last Admin: 07/25/18 10:06 Dose: 400 mg Artificial Tears (Puralube Opht Oint) 1 appl OU Q4H PRN PRN Reason: Dry eyes Last Admin: 07/19/18 18:00 Dose: 1 drop Artificial Tears (Refresh Opth Soln) 0.3 ml OU Q4H PRN PRN Reason: Dry eyes Last Admin: 07/09/18 10:37 Dose: 2 d Carvedilol (Coreg) 12.5 mg PO BID [facility] Last Admin: 07/25/18 10:06 Dose: 12.5 mg Famotidine (Pepcid) 20 mg PO DAILY [facility] Last Admin: 07/25/18 10:06 Dose: 20 mg Lisinopril (Zestril) 5 mg PO DAILY [facility] Last Admin: 07/25/18 10:06 Dose: 5 mg Valproate Sodium (Depakene Oral Soln) 1,000 mg PO Q12 [facility] - Labs Labs: 07/24/18 06:00 07/24/18 06:00 PT 12.7 SECONDS (9.4-12.5) H 07/09/18 21:10 INR 1.14 07/09/18 21:10 APTT 50.0 Seconds (26.9-38.3) H 07/12/18 04:00 Attending/Attestation - Attestation I have personally seen and examined this patient.: Yes I have fully participated in the care of the patient.: Yes I have reviewed all pertinent clinical information, including history, physical exam and plan: Yes Notes (Text): 07/25/18 14:28 Attending note; Patient seen and examined with resident. Patient is more alert and awake. Moving all extremities. Able to answer questions. Still with some expressive aphasia. Patient is a 48 year old male with unknown past medical history that presented to the emergency room s/p cardiac arrest and ventricular fibrillation. 1. S/P V-fib arrest/ NSTEMI. Dilated cardiomyopathy. Continue amiodarone and ASA. Continue Lisinopril and Coreg. Status post cardiac cath yesterday. Cardiac cath showed dilated cardiomyopathy with ejection fraction of 25 to 30%. No ischemic causes identified. Case discussed with cardiology in detail. Dr. Guerrero discussed with Dr. Tamiko DAVE. Possible transfer to [facility] [place] or [facility] for AICD placement. We will inform the sister for consent for transfer and procedure. 2. S/P severe sepsis secondary to aspiration pneumonia. resolved. S/P treatment with Doxcycline and Zosyn. Blood and urine cultures with no growth. 3. Encephalopathy. Resolving. Slowly improving neurological status .follows commands but with some aphasia. Continue seizure precautions. Continue Depakote. Patient is tolerating diet. Speech and swallow evaluation appreciated. Change to mechanically altered diet. 4. Drug abuse; drug abuse cessation is strongly advised .urine drug screen positive for opioids and cannabinoids. 5. GI/DVT prophylaxis. 6. Hepatitis B infection; need treatments as outpatient. PT evaluation appreciated. Subacute rehab recommended. Case discussed with social insurance analyst in detail for discharge planning.
--- NOTE | 2018-07-25 02:23 | PN ---
DATE: 07/24/2018 SUBJECTIVE: The patient is in bed, in no acute distress, nontoxic. PHYSICAL EXAMINATION: VITAL SIGNS: Temperature is 98, blood pressure is 111/70, respiratory rate of 18. HEENT: Unremarkable. NECK: Supple. LUNGS: Have decreased breath sounds. HEART: Normal S1, S2. ABDOMEN: Soft. LABORATORY DATA: Reveals a white count of 8.4. Chemistries are noted. Urinalysis is noted. Serology is noted. Hepatitis B DNA is 7.74. ASSESSMENT AND PLAN: This is a 48-year-old male who is seen earlier with acute change of mental status and initially cardiac arrest, anoxic brain injury, and [id number] myocardial infarction, severe cardiomyopathy, ventricular fibrillation, off of antibiotics. Hepatitis B DNA is elevated with LFT elevation. The patient will need treatment for hepatitis B and . Ever Miller MD
[2018-07-25] MEDS: Divalproex 500 mg DR(BID formulation) PO SCH (10:05)
--- NOTE | 2018-07-25 14:31 | PN ---
DATE: 07/25/2018 SUBJECTIVE: The patient tolerated cardiac catheterization without issues. PHYSICAL EXAMINATION: VITAL SIGNS: Blood pressure 122/80 and heart rates in the 70s. NECK: Negative JVD. LUNGS: Without rales. HEART: Reveals S1, S2. EXTREMITIES: Without edema. LABORATORY DATA: Hemoglobin is 11.3. Chemistries, BUN and creatinine are unremarkable. IMPRESSION: 1. Dilated cardiomyopathy. 2. Nonischemic cardiomyopathy. 3. Ventricular fibrillation/tachycardia. 4. Anoxic encephalopathy. PLAN: Given these findings, I have contacted reel slitter, Dr. Morrison, either at [facility] or [facility]. The patient will be transferred this weekend for defibrillator placement. I have asked the primary care team to contact his sister who lives in [place] to inform them of the issues. Kelby Guerrero MD
--- NOTE | 2018-07-25 16:46 | CP.PCM.PN ---
<Jimmy Angel - Last Filed: 07/25/18 16:40> Subjective - Date & Time of Evaluation Date of Evaluation: 07/25/18 Time of Evaluation: 09:30 - Subjective Subjective: INTERNAL MEDICINE PROGRESS NOTE FOR DR. JAVIER Angel PGY1 Pt seen and examined at bedside. No acute events overnight. Pt is verbal today, responding to commands, more awake and alert. He is denying 12 point ROS. Objective - Vital Signs/Intake and Output Vital Signs (last 24 hours): Temp Pulse Resp BP Pulse Ox 98.0 F 70 20 122/80 98 07/25/18 06:00 07/25/18 10:06 07/25/18 06:00 07/25/18 10:06 07/25/18 06:00 Intake and Output: 07/25/18 07/25/18 06:59 18:59 Intake Total 840 Output Total 1450 Balance -610 - Medications Medications: Current Medications Amiodarone HCl (Cordarone) 400 mg PO BRKDIN [facility] Last Admin: 07/25/18 10:06 Dose: 400 mg Artificial Tears (Puralube Opht Oint) 1 appl OU Q4H PRN PRN Reason: Dry eyes Last Admin: 07/19/18 18:00 Dose: 1 drop Artificial Tears (Refresh Opth Soln) 0.3 ml OU Q4H PRN PRN Reason: Dry eyes Last Admin: 07/09/18 10:37 Dose: 2 d Carvedilol (Coreg) 12.5 mg PO BID [facility] Last Admin: 07/25/18 10:06 Dose: 12.5 mg Famotidine (Pepcid) 20 mg PO DAILY [facility] Last Admin: 07/25/18 10:06 Dose: 20 mg Lisinopril (Zestril) 5 mg PO DAILY [facility] Last Admin: 07/25/18 10:06 Dose: 5 mg Valproate Sodium (Depakene Oral Soln) 1,000 mg PO Q12 [facility] - Labs Labs: 07/24/18 06:00 07/24/18 06:00 PT 12.7 SECONDS (9.4-12.5) H 07/09/18 21:10 INR 1.14 07/09/18 21:10 APTT 50.0 Seconds (26.9-38.3) H 07/12/18 04:00 - Constitutional Appears: Well, Non-toxic, No Acute Distress - Head Exam Head Exam: NORMOCEPHALIC - Eye Exam Eye Exam: EOMI, Normal appearance - ENT Exam ENT Exam: Mucous Membranes Moist, Normal Exam - Neck Exam Neck Exam: Normal Inspection - Respiratory Exam Respiratory Exam: Clear to Ausculation Bilateral, NORMAL BREATHING PATTERN - Cardiovascular Exam Cardiovascular Exam: REGULAR RHYTHM, +S1, +S2 - GI/Abdominal Exam GI & Abdominal Exam: Soft. absent: Tenderness - Extremities Exam Extremities Exam: Normal Inspection. absent: Calf Tenderness Additional comments: Dressing over R femoral region - Back Exam Back Exam: NORMAL INSPECTION - Neurological Exam Neurological Exam: Alert, Awake, Oriented x3 - Psychiatric Exam Psychiatric exam: Normal Affect, Normal Mood - Skin Skin Exam: Dry, Intact, Warm Assessment and Plan - Assessment and Plan (Free Text) Assessment: 48 year old male presented to the emergency department, with unknown past medical history brought in by ambulance after a witnessed cardiac arrest with ventricular fibrillation. s/p CPR for 25 minutes, 3x epinephrines, 2 narcans, 5 shocks and 3x Amiodarone in the field. Pt achieved ROSC and was taken off code freeze w/ in 72 hours. Pt monitored in ICU, subsequently extubated and t ransferred to telemetry Plan: AMS 2/2 cardiac arrest - likely 2/2 anoxic brain injury. Mental status significantly improve, currently awake and alert, obeying commands, tolerating dysphagia diet - continue valproic acid po per neuro recs - Brain MRI (07/11): no acute intracranial findings - Head CT (07/10): "No acute abnormalities. No significant findings to account for clinical presentation. No significant interval change compared to prior examination. Head CT (07/08): Supobtimal diagnostic quality due to extensive beam hardening artifacts patient motion. Allowing for this, no acute intracranial abnor malities. - Video EEG 07/11: Moderate to severe non specific diffuse disturbance of cortical activity, in keeping with a diffuse chase matter dysfunction. The findings do not suggest a specific etiology NSTEMI with severe non-ischemic cardiomyopathy w/ reduced EF in the setting of cardiac arrest - s/p witnessed cardiac arrest with ventricular fibrillation. s/p CPR for 25 minutes, 3x epinephrine, 2x narcan, 5 shocks & 3x Amiodarone. Approximate do wntime 25minutes. s/p code freeze completed at 5:30 pm 07/09 - s/p cardiac cath 08/16/18 revealing no ischemic lesions, per cardiology. - Continue on carvedilol 12.5mg & lisinopril 5mg - Continue oral amiodarone 400mg per cardio recs - Per cardiology, will discuss about ICD - Heparin discontinued. CXR, physical not revealing signs of fluid overload, diuretics not required at the moment. No longer on dobutamine gtt - Initial EKG showed NSR @ 68. L axis deviation, Initial troponins 07/08:0.06, 07/08:9.05, 07/09:7.6. - Urine tox: (+) opioids and cannibinoids - Hemoglobin A1C - 5.0 - Lipid panel: Chol 184, LDL: 84, HDL: 85 - TSH/T4 - TSH = 6.37, T4 = wnl - Echo 07/09/18: LVEF of 13%, left ventricle is normal size, normal left ventricular wall thickness, systolic function is severely impaired, significant regional wall motion abnormalities noted, mitral regurgitation is mild to moderate, trace aortic regurgitation. - CXR 07/14: No significant interval changes noted since the prior exam S/P severe sepsis 2/2 aspiration pneumonia - remains afebrile, no tachycardia, leukocytosis resolved - received treatment of doxy/zosyn - tolerating current diet Hepatis B HepBsAg (+), HepBsAb Dg <5, HepBsAb neg, Hep B DNA 7.74, HepBeAg Reactive Will refer to [facility] for further followup Patient to follow-up with liver specialist @ [facility] in outpatient setting Hypernatremia Resolved with increased po free water intake GI/DVT PPx: Pepcid/SCD Dispo: PT recommending [facility]. Pt's sister updated on clinical status today 07/25/18. She gave consent on the phone for ICD. EMTALA filled out. Case reviewed with attending physician, Dr. Javier Angel PGY1 <Brayden Garcia - Last Filed: 07/26/18 15:17> Objective - Vital Signs/Intake and Output Vital Signs (last 24 hours): Temp Pulse Resp BP Pulse Ox 97.9 F 65 16 130/86 100 07/26/18 08:15 07/26/18 09:48 07/26/18 08:15 07/26/18 09:48 07/26/18 08:15 - Medications Medications: Current Medications Amiodarone HCl (Cordarone) 400 mg PO BRKDIN [facility] Last Admin: 07/26/18 06:47 Dose: 400 mg Artificial Tears (Puralube Opht Oint) 1 appl OU Q4H PRN PRN Reason: Dry eyes Last Admin: 07/19/18 18:00 Dose: 1 drop Artificial Tears (Refresh Opth Soln) 0.3 ml OU Q4H PRN PRN Reason: Dry eyes Last Admin: 07/09/18 10:37 Dose: 2 d Carvedilol (Coreg) 12.5 mg PO BID [facility] Last Admin: 07/26/18 09:48 Dose: 12.5 mg Famotidine (Pepcid) 20 mg PO DAILY [facility] Last Admin: 07/26/18 09:48 Dose: 20 mg Lisinopril (Zestril) 5 mg PO DAILY [facility] Last Admin: 07/26/18 09:48 Dose: 5 mg Valproate Sodium (Depakene Oral Soln) 1,000 mg PO Q12 [facility] Last Admin: 07/26/18 09:49 Dose: 1,000 mg - Labs Labs: 07/24/18 06:00 07/24/18 06:00 PT 12.7 SECONDS (9.4-12.5) H 07/09/18 21:10 INR 1.14 07/09/18 21:10 APTT 50.0 Seconds (26.9-38.3) H 07/12/18 04:00 Attending/Attestation - Attestation I have personally seen and examined this patient.: Yes I have fully participated in the care of the patient.: Yes I have reviewed all pertinent clinical information, including history, physical exam and plan: Yes Notes (Text): 07/26/18 15:15 Attending note; Patient seen and examined with resident. Patient is more alert and awake. Moving all extremities. Able to answer questions. Still with some expressive aphasia. Patient is a 48 year old male with unknown past medical history that presented to the emergency room s/p cardiac arrest and ventricular fibrillation. 1. S/P V-fib arrest/ NSTEMI. Dilated cardiomyopathy. Continue amiodarone and ASA. Continue Lisinopril and Coreg. Status post cardiac cath. Cardiac cath showed dilated cardiomyopathy with ejection fraction of 25 to 30%. No ischemic causes identified. Case discussed with cardiology in detail. Dr. Guerrero discussed with Dr. Tamiko DAVE. [place] [facility] [facility] for AICD [facility]. We informed the sister and Emtala completed. 2. S/P severe sepsis secondary to aspiration pneumonia. resolved. S/P treatment with Doxcycline and Zosyn. Blood and urine cultures with no growth. 3. Encephalopathy. Resolving. Slowly improving neurological status .follows commands but with some aphasia. Continue seizure precautions. Continue Depakote. Patient is tolerating diet. Speech and swallow evaluation appreciated. Change to mechanically altered diet. 4. Drug abuse; drug abuse cessation is strongly advised .urine drug screen positive for opioids and cannabinoids. 5. GI/DVT prophylaxis. 6. Hepatitis B infection; need treatments as outpatient. PT evaluation appreciated. Subacute rehab recommended. Case discussed with psychologist social in detail for discharge planning. 07/26/18 15:15
--- NOTE | 2018-07-25 17:37 | PN ---
DATE: 07/25/2018 SUBJECTIVE: The patient is in bed, in no acute distress, nontoxic. PHYSICAL EXAMINATION: VITAL SIGNS: Temperature is 98, blood pressure is 112/70, respiratory 16. HEENT: Unremarkable. NECK: Supple. LUNGS: Decreased breath sounds. HEART: Normal S1, S2. ABDOMEN: Soft. LABORATORY DATA: Laboratory examination reveals a white count of 8.4. Chemistries are noted and microbiology is reviewed and hepatitis B is noted. ASSESSMENT AND PLAN: This is a 48-year-old male who was admitted with acute change in mental status initially with cardiac arrest, anoxic brain injury, [id number] myocardial infarction, severe cardiomyopathy with ventricular fibrillation. Currently, the patient is off of antibiotics. The patient does have chronic active hepatitis B surface antigen and positive DNA/PCR for hepatitis is elevated. Will need treatment once and recovery is completed. Will need to have hepatitis B treatment and I not sure if the patient understands and will follow instructions. Should be referred to hepatitis clinic for treatment. Ever Miller MD
[2018-07-25] MEDS: Valproic Acid 250 mg/5 ml UD Cup PO SCH (21:49)
[2018-07-25] MEDS ORDERED: Divalproex 500 mg DR(BID formulation) PO SCH (22:00)
[2018-07-26] MEDS: Valproic Acid 250 mg/5 ml UD Cup PO SCH ×2 (09:49→22:18)
--- NOTE | 2018-07-26 12:39 | CP.PCM.PN ---
<Jimmy Angel - Last Filed: 07/26/18 12:43> Subjective - Date & Time of Evaluation Date of Evaluation: 07/26/18 Time of Evaluation: 09:30 - Subjective Subjective: INTERNAL MEDICINE PROGRESS NOTE FOR DR. JAVIER Angel PGY1 Pt seen and examined at bedside this am. No acute events overnight. Pt denying ROS Objective - Vital Signs/Intake and Output Vital Signs (last 24 hours): Temp Pulse Resp BP Pulse Ox 97.9 F 65 16 130/86 100 07/26/18 08:15 07/26/18 09:48 07/26/18 08:15 07/26/18 09:48 07/26/18 08:15 - Medications Medications: Current Medications Amiodarone HCl (Cordarone) 400 mg PO BRKDIN [facility] Last Admin: 07/26/18 06:47 Dose: 400 mg Artificial Tears (Puralube Opht Oint) 1 appl OU Q4H PRN PRN Reason: Dry eyes Last Admin: 07/19/18 18:00 Dose: 1 drop Artificial Tears (Refresh Opth Soln) 0.3 ml OU Q4H PRN PRN Reason: Dry eyes Last Admin: 07/09/18 10:37 Dose: 2 d Carvedilol (Coreg) 12.5 mg PO BID [facility] Last Admin: 07/26/18 09:48 Dose: 12.5 mg Famotidine (Pepcid) 20 mg PO DAILY [facility] Last Admin: 07/26/18 09:48 Dose: 20 mg Lisinopril (Zestril) 5 mg PO DAILY [facility] Last Admin: 07/26/18 09:48 Dose: 5 mg Valproate Sodium (Depakene Oral Soln) 1,000 mg PO Q12 [facility] Last Admin: 07/26/18 09:49 Dose: 1,000 mg - Labs Labs: 07/24/18 06:00 07/24/18 06:00 PT 12.7 SECONDS (9.4-12.5) H 07/09/18 21:10 INR 1.14 07/09/18 21:10 APTT 50.0 Seconds (26.9-38.3) H 07/12/18 04:00 - Constitutional Appears: Well, Non-toxic, No Acute Distress - Head Exam Head Exam: NORMOCEPHALIC - Eye Exam Eye Exam: EOMI, Normal appearance - ENT Exam ENT Exam: Mucous Membranes Moist, Normal Exam - Neck Exam Neck Exam: Normal Inspection - Respiratory Exam Respiratory Exam: Clear to Ausculation Bilateral, NORMAL BREATHING PATTERN - Cardiovascular Exam Cardiovascular Exam: REGULAR RHYTHM, +S1, +S2 - GI/Abdominal Exam GI & Abdominal Exam: Soft. absent: Tenderness - Extremities Exam Extremities Exam: Normal Inspection. absent: Calf Tenderness Additional comments: - Back Exam Back Exam: NORMAL INSPECTION - Neurological Exam Neurological Exam: Alert, Awake, Oriented x3 - Psychiatric Exam Psychiatric exam: Normal Affect, Normal Mood - Skin Skin Exam: Dry, Intact, Warm Assessment and Plan - Assessment and Plan (Free Text) Assessment: 48 year old male presented to the emergency department, with unknown past medical history brought in by ambulance after a witnessed cardiac arrest with ventricular fibrillation s/p resuscitation s/p code freeze monitored on telemetry pending ICD placement Plan: AMS 2/2 cardiac arrest - likely 2/2 anoxic brain injury. Mental status significantly improved, currently awake and alert, obeying commands, tolerating dysphagia diet - continue po valproic acid po per neuro recs - Brain MRI (07/11): no acute intracranial findings - Head CT (07/10): "No acute abnormalities. No significant findings to account for clinical presentation. No significant interval change compared to prior examination. Head CT (07/08): Supobtimal diagnostic quality due to extensive beam hardening artifacts patient motion. Allowing for this, no acute intracranial abnormalities. - Video EEG (07/11): Moderate to severe non specific diffuse disturbance of cortical activity, in keeping with a diffuse chase matter dysfunction. The findings do not suggest a specific etiology NSTEMI with severe non-ischemic cardiomyopathy w/ reduced EF - s/p witnessed cardiac arrest with ventricular fibrillation. s/p CPR for 25 minutes, 3x epinephrine, 2x narcan, 5 shocks & 3x Amiodarone. Approximate downtime 25minutes. s/p code freeze completed at 5:30 pm 07/09 - s/p cardiac cath 08/16/18 revealing no ischemic lesions, per cardiology. - Urine tox: (+) opioids and cannibinoids - Hemoglobin A1C - 5.0- Lipid panel: Chol 184, LDL: 84, HDL: 85- TSH/T4 - TSH = 6.37, T4 = wnl- Echo 07/09/18: LVEF of 13%, left ventricle is normal size, normal left ventricular wall thickness, systolic function is severely impaired, significant regional wall motion abnormalities noted, mitral regurgitation is mild to moderate, trace aortic regurgitation. - CXR 07/14: No significant interval changes noted since the prior exam - Continue on carvedilol 12.5mg & lisinopril 5mg - Continue oral amiodarone 400mg per cardio recs - Per cardiology, will discuss about ICD - Heparin discontinued. CXR, physical not revealing signs of fluid overload, diuretics not required at the moment. No longer on dobutamine gtt - Initial EKG showed NSR @ 68. L axis deviation, Initial troponins 07/08:0.06, 07/08:9.05, 07/09:7.6. S/P severe sepsis 2/2 aspiration pneumonia - remains afebrile, no tachycardia, leukocytosis resolved - received treatment of doxy/zosyn - tolerating current diet Hepatis B HepBsAg (+), HepBsAb Dg <5, HepBsAb neg, Hep B DNA 7.74, HepBeAg Reactive Will refer to [facility] for further followup Patient to follow-up with liver specialist @ [facility] in outpatient setting Hypernatremia Resolved with increased po free water intake GI/DVT PPx: Pepcid/SCD Dispo: PT recommending [facility]. Pt's sister updated on clinical status 07/25/18. She gave consent on the phone for ICD. EMTALA filled out and placed in chart Case reviewed with attending physician, Dr. Javier Angel PGY1 <Brayden Garcia - Last Filed: 07/26/18 15:25> Objective - Vital Signs/Intake and Output Vital Signs (last 24 hours): Temp Pulse Resp BP Pulse Ox 97.9 F 65 16 130/86 100 07/26/18 08:15 07/26/18 09:48 07/26/18 08:15 07/26/18 09:48 07/26/18 08:15 - Medications Medications: Current Medications Amiodarone HCl (Cordarone) 400 mg PO [facility]KDIN [facility] Last Admin: 07/26/18 06:47 Dose: 400 mg Artificial Tears (Puralube Opht Oint) 1 appl OU Q4H PRN PRN Reason: Dry eyes Last Admin: 07/19/18 18:00 Dose: 1 drop Artificial Tears (Refresh Opth Soln) 0.3 ml OU Q4H PRN PRN Reason: Dry eyes Last Admin: 07/09/18 10:37 Dose: 2 d Aspirin (Ecotrin) 81 mg PO DAILY [facility] Carvedilol (Coreg) 12.5 mg PO BID [facility] Last Admin: 07/26/18 09:48 Dose: 12.5 mg Enoxaparin Sodium (Lovenox) 40 mg SC DAILY [facility]; Protocol Famotidine (Pepcid) 20 mg PO DAILY [facility] Last Admin: 07/26/18 09:48 Dose: 20 mg Lisinopril (Zestril) 5 mg PO DAILY [facility] Last Admin: 07/26/18 09:48 Dose: 5 mg Valproate Sodium (Depakene Oral Soln) 1,000 mg PO Q12 [facility] Last Admin: 07/26/18 09:49 Dose: 1,000 mg - Labs Labs: 07/24/18 06:00 07/24/18 06:00 PT 12.7 SECONDS (9.4-12.5) H 07/09/18 21:10 INR 1.14 07/09/18 21:10 APTT 50.0 Seconds (26.9-38.3) H 07/12/18 04:00 Attending/Attestation - Attestation I have personally seen and examined this patient.: Yes I have fully participated in the care of the patient.: Yes I have reviewed all pertinent clinical information, including history, physical exam and plan: Yes Notes (Text): 07/26/18 15:24 Attending note; Patient seen and examined with resident. Patient is more alert and awake. Moving all extremities. Able to answer questions. Still with some expressive aphasia. Patient is a 48 year old male with unknown past medical history that presented to the emergency room s/p cardiac arrest and ventricular fibrillation. 1. S/P V-fib arrest/ NSTEMI. Dilated cardiomyopathy. Continue amiodarone and ASA. Continue Lisinopril and Coreg. Status post cardiac cath. Cardiac cath showed dilated cardiomyopathy with ejection fraction of 25 to 30%. No ischemic causes identified. Case discussed with cardiology in detail. Dr. Guerrero discussed with Dr. Tamiko DAVE. [place] [facility] [facility]ICD [facility]. We informed the sister and Emtala completed. 2. S/P severe sepsis secondary to aspiration pneumonia. resolved. S/P treatment with Doxcycline and Zosyn. Blood and urine cultures with no growth. 3. Encephalopathy. Resolving. Slowly improving neurological status .follows commands but with some aphasia. Continue seizure precautions. Continue Depakote. Patient is tolerating diet. Speech and swallow evaluation appreciated. Change to mechanically altered diet. 4. Drug abuse; drug abuse cessation is strongly advised .urine drug screen positive for opioids and cannabinoids. 5. GI/DVT prophylaxis. 6. Hepatitis B infection; need treatments as outpatient. PT evaluation appreciated. Subacute rehab recommended. Case discussed with psychiatric social worker in detail for discharge planning. pending transfer for AICD eval and placement. 07/26/18 15:24
[2018-07-26] MEDS: Enoxaparin 40 mg Syringe SC SCH (15:38)
[2018-07-26 16:09] VITALS: RESP 18
--- NOTE | 2018-07-27 00:58 | PN ---
DATE: 07/26/2018 SUBJECTIVE: The patient is seen in bed, in no acute distress, nontoxic. PHYSICAL EXAMINATION: VITAL SIGNS: Temperature is 97, blood pressure is 100/60, respiratory rate of 18. HEENT: Unremarkable. NECK: Supple. LUNGS: Have decreased breath sounds. HEART: Normal S1 and S2. ABDOMEN: Soft. LABORATORY EXAMINATION: Reveals a white count of 8.4, hemoglobin of 11, BUN of 21, creatinine of 1. Urinalysis is noted. Toxicology is noted. Serology is noted. ASSESSMENT AND PLAN: This is a 48-year-old male who was admitted with acute change in mental status initially with cardiac arrest, anoxic brain injury, [id number] myocardial infarction, severe cardiomyopathy, ventricular fibrillation. The patient has a chronic active hepatitis B surface antigen and is currently off of antibiotics. He will need hepatitis B treatment. Ever Miller MD
[2018-07-27] MEDS: Valproic Acid 250 mg/5 ml UD Cup PO SCH ×2 (10:55→21:16)
[2018-07-27] MEDS: Enoxaparin 40 mg Syringe SC SCH (10:55)
--- NOTE | 2018-07-27 12:01 | CP.PCM.PN ---
<Carl Morris L - Last Filed: 07/27/18 15:21> Subjective - Date & Time of Evaluation Date of Evaluation: 07/27/18 Time of Evaluation: 08:30 - Subjective Subjective: Resident Progress Note for Hospitalist Service Patient examined at bedside. No acute events overnight. Patient following commands and having good PO intake. Denies any symptomatic complaints. Objective - Vital Signs/Intake and Output Vital Signs (last 24 hours): Temp Pulse Resp BP Pulse Ox 97.8 F 68 18 121/78 98 07/27/18 08:34 07/27/18 10:55 07/27/18 08:34 07/27/18 10:55 07/27/18 08:34 Intake and Output: 07/27/18 07/27/18 06:59 18:59 Intake Total 0 Output Total 1400 Balance -1400 - Medications Medications: Current Medications Amiodarone HCl (Cordarone) 400 mg PO [facility] Last Admin: 07/27/18 10:53 Dose: 400 mg Artificial Tears (Puralube Opht Oint) 1 appl OU Q4H PRN PRN Reason: Dry eyes Last Admin: 07/19/18 18:00 Dose: 1 drop Artificial Tears (Refresh Opth Soln) 0.3 ml OU Q4H PRN PRN Reason: Dry eyes Last Admin: 07/09/18 10:37 Dose: 2 d Aspirin (Ecotrin) 81 mg PO DAILY [facility] Last Admin: 07/27/18 10:53 Dose: 81 mg Carvedilol (Coreg) 6.25 mg PO BID [facility] Last Admin: 07/27/18 10:55 Dose: 6.25 mg Enoxaparin Sodium (Lovenox) 40 mg SC DAILY [facility]; Protocol Last Admin: 07/27/18 10:55 Dose: 40 mg Famotidine (Pepcid) 20 mg PO DAILY [facility] Last Admin: 07/27/18 10:53 Dose: 20 mg Lisinopril (Zestril) 5 mg PO DAILY [facility] Last Admin: 07/27/18 10:54 Dose: 5 mg Valproate Sodium (Depakene Oral Soln) 1,000 mg PO Q12 [facility] Last Admin: 07/27/18 10:55 Dose: 1,000 mg - Labs Labs: 07/24/18 06:00 07/24/18 06:00 PT 12.7 SECONDS (9.4-12.5) H 07/09/18 21:10 INR 1.14 07/09/18 21:10 APTT 50.0 Seconds (26.9-38.3) H 07/12/18 04:00 - Additional Findings Additional findings: - Constitutional Appears: Non-toxic, No Acute Distress - Head Exam Head Exam: ATRAUMATIC, NORMOCEPHALIC - Eye Exam Eye Exam: EOMI, Normal appearance - ENT Exam ENT Exam: Mucous Membranes Moist, Normal Exam - Neck Exam Neck Exam: Normal Inspection - Respiratory Exam Respiratory Exam: Clear to Auscultation Bilateral, NORMAL BREATHING PATTERN - Cardiovascular Exam Cardiovascular Exam: REGULAR RHYTHM, +S1, +S2. absent: Tachycardia - GI/Abdominal Exam GI & Abdominal Exam: Soft. absent: Tenderness - Extremities Exam Extremities Exam: Normal Inspection. absent: Calf Tenderness - Neurological Exam Neurological Exam: Alert, Awake, Oriented x3 - Skin Skin Exam: Dry, Intact, Warm Assessment and Plan - Assessment and Plan (Free Text) Assessment: Patient is a 48 year old male with unknown past medical history brought in by ambulance after a witnessed cardiac arrest with ventricular fibrillation s/p resuscitation s/p code freeze monitored on telemetry pending ICD placement Plan: AMS 2/ cardiac arrest - mental status significantly improved, tolerating dysphagia diet - continue po valproic acid per neuro recs - Brain MRI (07/11): No acute intracranial findings - Head CT (07/10): No acute abnormalities. No significant findings to account for clinical presentation. No significant interval change compared to prior examination. - Head CT (07/08): Supobtimal diagnostic quality due to extensive beam hardening artifacts patient motion. Allowing for this, no acute intracranial abnormalities. - VEEG (07/11): Moderate to severe non specific diffuse disturbance of cortical activity, in keeping with a diffuse chase matter dysfunction. The findings do not suggest a specific etiology NSTEMI with severe non-ischemic cardiomyopathy w/reduced EF - s/p witnessed cardiac arrest with ventricular fibrillation. s/p CPR for 25 minutes, 3x epinephrine, 2x narcan, 5 shocks & 3x Amiodarone. Approximate downtime 25 minutes. s/p code freeze completed at 5:30 pm 07/09 - s/p cardiac cath 08/16/18 revealing no ischemic lesions, per cardiology. - Urine tox: (+) opioids and cannibinoids - Hemoglobin A1C - 5.0- Lipid panel: Chol 184, LDL: 84, HDL: 85- TSH/T4 - TSH = 6.37, T4 = wnl- Echo 07/09/18: LVEF of 13%, left ventricle is normal size, normal left ventricular wall thickness, systolic function is severely impaired, significant regional wall motion abnormalities noted, mitral regurgitation is mild to moderate, trace aortic re gurgitation. - CXR 07/14: No significant interval changes noted since the prior exam - Carvedilol 12.5 mg & lisinopril 5 mg - Amiodarone 400 mg - Heparin discontinued. CXR, physical not revealing signs of fluid overload, diuretics not required at the moment. No longer on dobutamine gtt - Initial EKG showed NSR @ 68. L axis deviation, Initial troponins 07/08:0.06, 07/08:9.05, 07/09:7.6. - PT/OT eval Severe sepsis 2/2 aspiration pneumonia - resolved - received treatment of doxy/zosyn Hepatitis B - HepBsAg (+), HepBsAb Gd <5, HepBsAb neg, Hep B DNA 7.74, HepBeAg Reactive - patient to follow-up with liver specialist @ [facility] in outpatient setting Hypernatremia - resolved with increased po free water intake PPX: Pepcid/SCDs Dispo: PT recommending [facility]. Pt's sister updated on clinical status 07/25/18. C onsent given on the phone for ICD. EMTALA completed. Case reviewed with Dr. Radha Morris PGY-1 <Brayden Garcia - Last Filed: 07/27/18 18:23> Objective - Vital Signs/Intake and Output Vital Signs (last 24 hours): Temp Pulse Resp BP Pulse Ox 97.3 F L 72 18 130/80 99 07/27/18 15:57 07/27/18 17:32 07/27/18 15:57 07/27/18 17:32 07/27/18 15:57 Intake and Output: 07/27/18 07/27/18 06:59 18:59 Intake Total 0 Output Total 1400 Balance -1400 - Medications Medications: Current Medications Amiodarone HCl (Cordarone) 400 mg PO [facility] Last Admin: 07/27/18 17:32 Dose: 400 mg Artificial Tears (Puralube Opht Oint) 1 appl OU Q4H PRN PRN Reason: Dry eyes Last Admin: 07/19/18 18:00 Dose: 1 drop Artificial Tears (Refresh Opth Soln) 0.3 ml OU Q4H PRN PRN Reason: Dry eyes Last Admin: 07/09/18 10:37 Dose: 2 d Aspirin (Ecotrin) 81 mg PO DAILY [facility] Last Admin: 07/27/18 10:53 Dose: 81 mg Carvedilol (Coreg) 6.25 mg PO BID [facility] Last Admin: 07/27/18 17:31 Dose: 6.25 mg Enoxaparin Sodium (Lovenox) 40 mg SC DAILY [facility]; Protocol Last Admin: 07/27/18 10:55 Dose: 40 mg Famotidine (Pepcid) 20 mg PO DAILY [facility] Last Admin: 07/27/18 10:53 Dose: 20 mg Lisinopril (Zestril) 5 mg PO DAILY [facility] Last Admin: 07/27/18 10:54 Dose: 5 mg Valproate Sodium (Depakene Oral Soln) 1,000 mg PO Q12 [facility] Last Admin: 07/27/18 10:55 Dose: 1,000 mg - Labs Labs: 07/24/18 06:00 07/24/18 06:00 PT 12.7 SECONDS (9.4-12.5) H 07/09/18 21:10 INR 1.14 07/09/18 21:10 APTT 50.0 Seconds (26.9-38.3) H 07/12/18 04:00 Attending/Attestation - Attestation I have personally seen and examined this patient.: Yes I have fully participated in the care of the patient.: Yes I have reviewed all pertinent clinical information, including history, physical exam and plan: Yes Notes (Text): 07/27/18 18:23 Attending note; Patient seen and examined with resident. Patient is more alert and awake. Moving all extremities. Able to answer questions. Still with some expressive aphasia. Patient is a 48 year old male with unknown past medical history that presented to the emergency room s/p cardiac arrest and ventricular fibrillation. 1. S/P V-fib arrest/ NSTEMI. Dilated cardiomyopathy. Continue amiodarone and ASA. Continue Lisinopril and Coreg. Status post cardiac cath. Cardiac cath showed dilated cardiomyopathy with ejection fraction of 25 to 30%. No ischemic causes identified. Case discussed with cardiology in detail. Dr. Guerrero discussed with Dr. Tamiko DAVE. Possible transfer to [facility] [place] or [facility] for AICD placement. We informed the sister and Emtala completed. 2. S/P severe sepsis secondary to aspiration pneumonia. resolved. S/P treatment with Doxcycline and Zosyn. Blood and urine cultures with no growth. 3. Encephalopathy. Resolving. Slowly improving neurological status .follows commands but with some aphasia. Continue seizure precautions. Continue Depakote. Patient is tolerating diet. Speech and swallow evaluation appreciated. Change to mechanically altered diet. 4. Drug abuse; drug abuse cessation is strongly advised .urine drug screen positive for opioids and cannabinoids. 5. GI/DVT prophylaxis. 6. Hepatitis B infection; need treatments as outpatient. PT evaluation appreciated. Subacute rehab recommended. Case discussed with social work case manager in detail for discharge planning. pending transfer for AICD eval and placement.
--- NOTE | 2018-07-27 21:17 | PN ---
DATE: 07/27/2018 SUBJECTIVE: The patient is in bed, in no acute distress, nontoxic. PHYSICAL EXAMINATION: VITAL SIGNS: Temperature is 97, blood pressure is 121/70, respiratory of 18. HEENT: Unremarkable. NECK: Supple. LUNGS: Decreased breath sounds. HEART: Normal S1, S2. ABDOMEN: Soft. LABORATORY DATA: Laboratory examination reveals a white count of 8.4 and hemoglobin of 11. BUN of 21, creatinine of 1, and procalcitonin is 0.11. Urinalysis is noted. Toxicology is noted. Serology is reviewed. Microbiology is noted. ASSESSMENT AND PLAN: This is a 48-year-old male who was seen earlier today in [facility], bed 2 was admitted with acute change in mental status and status post cardiac arrest, anoxic brain injury, [id number] [place], severe cardiomyopathy, ventricular fibrillation. Now has chronic active hepatitis B with a B surface antigen is positive. Will need treatment. Would recommend once this acute medical care is corrected. Should follow up as outpatient with [facility] to treat the hepatitis B. Ever Miller MD
[2018-07-28 08:07] VITALS: TEMP 98.2; O2SAT 98
[2018-07-28] MEDS: Valproic Acid 250 mg/5 ml UD Cup PO SCH (09:28)
[2018-07-28] MEDS: Enoxaparin 40 mg Syringe SC SCH (09:29)
[2018-07-28 09:30] VITALS: BP 118/78; PULSE 66
--- NOTE | 2018-07-28 14:34 | CP.PCM.DIS ---
<Parrish Garibay - Last Filed: 07/28/18 14:31> Provider - Provider Date of Admission: 07/08/18 15:56 Attending physician: Carmela Walker DO Primary care physician: Wali Scott MD Consults: 07/08/18 16:38 Neurology Consult Stat Comment: Consulting Provider: Hai Hackett Consulting Physician: Hai Hackett Reason for Consult: cardiac arrest 07/08/18 16:39 Cardiology Consult Stat Comment: Consulting Provider: Kelby Guerrero Consulting Physician: Kelby Guerrero Reason for Consult: cardiac arrest, 07/08/18 16:40 Infectious Disease Consult Routine Comment: Consulting Provider: Ever Miller Consulting Physician: Ever Miller Reason for Consult: empiric abx recs, cardiac arrest 07/09/18 12:27 Palliative Care Consult Routine Comment: Consulting Provider: Elaine Renae Physician Instructions: Reason For Exam: s/p cardiac arrest with ROSC 07/10/18 07:08 Theater Projectionist [Case Management Referral] Routine Comment: Physician Instructions: Reason For Exam: Reason for Referral: Discharge Planning Time Spent in preparation of Discharge (in minutes): 45 Diagnosis - Discharge Diagnosis (1) Cardiac arrest Status: Acute (2) Ischemic cardiomyopathy Status: Acute (3) Systolic CHF, acute Status: Acute Hospital Course - Lab Results Lab Results: Micro Results 07/14/18 23:30 Sputum Induced Gram Stain - Final 07/14/18 23:30 Sputum Induced Sputum Culture - Final NORMAL ORAL VIKTORIA 07/11/18 13:30 Blood Blood Culture - Final NO GROWTH AFTER 5 DAYS 07/11/18 13:30 Blood Gram Stain - Final TEST NOT PERFORMED 07/11/18 13:00 Blood Blood Culture - Final NO GROWTH AFTER 5 DAYS 07/11/18 13:00 Blood Gram Stain - Final TEST NOT PERFORMED 07/09/18 15:20 Blood Blood Culture - Final NO GROWTH AFTER 5 DAYS 07/09/18 15:20 Blood Gram Stain - Final TEST NOT PERFORMED 07/08/18 15:15 Blood-Venous Blood Culture - Final NO GROWTH AFTER 5 DAYS 07/08/18 15:15 Blood-Venous Gram Stain - Final TEST NOT PERFORMED 07/08/18 14:40 Blood-Venous Blood Culture - Final NO GROWTH AFTER 5 DAYS 07/08/18 14:40 Blood-Venous Gram Stain - Final TEST NOT PERFORMED 07/08/18 18:11 Naris MRSA Culture (Admit) - Final MRSA NOT DETECTED 07/08/18 15:15 Urine,Catheterized Urine Culture - Final No Growth (<1,000 CFU/ML) Most Recent Lab Values WBC 8.4 10^3/uL (4.5-11.0) 07/24/18 06:00 RBC 3.62 10^6/uL (3.5-6.1) 07/24/18 06:00 Hgb 11.3 g/dL (14.0-18.0) L 07/24/18 06:00 Hct 35.2 % (42.0-52.0) L 07/24/18 06:00 MCV 97.2 fl (80.0-105.0) 07/24/18 06:00 MCH 31.2 pg (25.0-35.0) 07/24/18 06:00 MCHC 32.1 g/dl (31.0-37.0) 07/24/18 06:00 RDW 12.4 % (11.5-14.5) 07/24/18 06:00 Plt Count 283 10^3/uL (120.0-450.0) 07/24/18 06:00 MPV 10.2 fl (7.0-11.0) 07/24/18 06:00 Neut % (Auto) 66.2 % (50.0-68.0) 07/24/18 06:00 Lymph % (Auto) 23.4 % (22.0-35.0) 07/24/18 06:00 [place] % (Auto) 8.6 % (1.0-6.0) H 07/24/18 06:00 Eos % (Auto) 1.4 % (1.5-5.0) L 07/24/18 06:00 Baso % (Auto) 0.4 % (0.0-3.0) 07/24/18 06:00 Lymph # (Auto) 2.0 (1.2-3.4) 07/24/18 06:00 [place] # (Auto) 0.7 (0.1-0.6) H 07/24/18 06:00 Eos # (Auto) 0.1 (0.0-0.7) 07/24/18 06:00 Baso # (Auto) 0.03 K/mm3 (0.0-2.0) 07/24/18 06:00 Absolute Neuts (auto) 5.53 (1.4-6.5) 07/24/18 06:00 Neutrophils % (Manual) 93 % (50.0-70.0) H 07/08/18 22:03 Band Neutrophils % 4 % (0-2) H 07/08/18 22:03 Lymphocytes % (Manual) 1 % (22.0-35.0) L 07/08/18 22:03 Monocytes % (Manual) 1 % (1.0-6.0) 07/08/18 22:03 Metamyelocytes % 1 % 07/08/18 22:03 Platelet Evaluation Normal (NORMAL) 07/08/18 22:03 PT 12.7 SECONDS (9.4-12.5) H 07/09/18 21:10 INR 1.14 07/09/18 21:10 APTT 50.0 Seconds (26.9-38.3) H 07/12/18 04:00 pCO2 34 mm/Hg (35-45) L 07/15/18 05:00 pO2 99.0 mm/Hg (80-100) 07/15/18 05:00 HCO3 27.8 mmol/L (21-28) 07/15/18 05:00 ABG pH 7.52 (7.35-7.45) H 07/15/18 05:00 ABG Total CO2 28.8 mmol.L (22-28) H 07/15/18 05:00 ABG O2 Saturation 100.1 % (95-98) H 07/15/18 05:00 ABG O2 Content 15.6 ML/dl (15-23) 07/15/18 05:00 ABG Base Excess 4.9 mmol/L (-2.0-3.0) H 07/15/18 05:00 ABG Hemoglobin 11.4 g/dL (11.7-17.4) L 07/15/18 05:00 ABG Carboxyhemoglobin 2.6 % (0.5-1.5) H 07/15/18 05:00 POC ABG HHb (Measured) -0.1 % (0-5) L 07/15/18 05:00 ABG Methemoglobin 1.2 % (0.0-3.0) 07/15/18 05:00 ABG O2 Capacity 15.6 mL/dl (16-24) L 07/15/18 05:00 ABG Potassium 3.2 mmol/L (3.6-5.2) L 07/09/18 17:00 VBG pH 7.30 (7.32-7.43) L 07/09/18 01:30 VBG pCO2 60.0 (40-60) 07/09/18 01:30 VBG HCO3 29.5 mmol/l (21-28) H 07/09/18 01:30 VBG Total CO2 31.3 mmol.L (22-28) H 07/09/18 01:30 VBG O2 Sat (Calc) 76.0 % (40-65) H 07/09/18 01:30 VBG Base Excess 1.6 mmol/L (0.0-2.0) 07/09/18 01:30 VBG Potassium 3.0 mmol/L (3.6-5.2) L 07/09/18 01:30 Hgb O2 Saturation 96.2 % (95.0-98.0) 07/15/18 05:00 Sodium 139.0 mmol/L (132-148) 07/09/18 17:00 Chloride 105.0 mmol/L (98-107) 07/09/18 17:00 Glucose 111 mg/dl (75-110) H 07/09/18 17:00 Lactate 0.9 mmol/L (0.7-2.1) 07/09/18 17:00 Mechanical Rate 20 07/08/18 18:02 FiO2 40.0 % 07/15/18 05:00 Tidal Volume 450 07/08/18 18:02 PEEP 5 07/08/18 18:02 Crit Value Called To Madeline bernard rn icu 07/09/18 01:30 Crit Value Called By Hui 07/09/18 01:30 Blood Gas Notified Time 148 07/09/18 01:30 Sodium 142 mmol/L (132-148) 07/24/18 06:00 Potassium 4.0 mmol/L (3.6-5.0) 07/24/18 06:00 Chloride 105 mmol/L (98-107) 07/24/18 06:00 Carbon Dioxide 32 mmol/L (21-33) 07/24/18 06:00 Anion Gap 10 (10-20) 07/24/18 06:00 BUN 21 mg/dL (7-21) 07/24/18 06:00 Creatinine 1.0 mg/dl (0.8-1.5) 07/24/18 06:00 Est GFR ( Amer) > 60 07/24/18 06:00 Est GFR (Non-Af Amer) > 60 07/24/18 06:00 POC Glucose (mg/dL) 98 mg/dL (65-110) 07/13/18 06:15 Random Glucose 87 mg/dL (70-110) 07/24/18 06:00 Hemoglobin A1c 5.0 % (4.2-6.5) 07/08/18 18:20 Calcium 8.6 mg/dL (8.4-10.5) 07/24/18 06:00 Ionized Calcium 4.4 mg/dL (4.80-5.60) L 07/09/18 05:20 Phosphorus 4.7 mg/dL (2.5-4.5) H 07/16/18 05:45 Magnesium 2.5 mg/dL (1.7-2.2) H 07/20/18 06:00 Total Bilirubin 0.6 mg/dL (0.2-1.3) 07/24/18 06:00 AST 67 U/L (17-59) H 07/24/18 06:00 ALT 40 U/L (7-56) 07/24/18 06:00 Alkaline Phosphatase 70 U/L (38-126) 07/24/18 06:00 Troponin I 7.60 ng/mL H* 07/09/18 01:30 NT-Pro-B Natriuret Pep 485 pg/mL (0-450) H 07/08/18 14:40 Total Protein 6.4 g/dL (5.8-8.3) 07/24/18 06:00 Albumin 3.3 g/dL (3.0-4.8) 07/24/18 06:00 Globulin 3.1 gm/dL 07/24/18 06:00 Albumin/Globulin Ratio 1.1 (1.1-1.8) 07/24/18 06:00 Triglycerides 88 mg/dL (35-160) 07/08/18 14:20 Cholesterol 184 mg/dL (130-200) 07/08/18 14:20 LDL Cholesterol Direct 84 mg/dL (0-129) 07/08/18 14:20 HDL Cholesterol 85 mg/dL (29-60) H 07/08/18 14:20 Procalcitonin 0.11 NG/ML (0.19-0.49) L 07/17/18 08:01 Thyroxine (T4) 7.4 ug/dL (5.5-11.0) 07/08/18 14:50 TSH 3rd Generation 6.37 mIU/mL (0.46-4.68) H 07/08/18 14:40 Arterial Blood Potassium 3.2 mmol/L (3.6-5.2) L 07/09/18 17:00 Venous Blood Potassium 3.0 mmol/L (3.6-5.2) L 07/09/18 01:30 Urine Color Yellow (YELLOW) 07/19/18 12:00 Urine Appearance Clear (CLEAR) 07/19/18 12:00 Urine pH 6.0 (4.7-8.0) 07/19/18 12:00 Ur Specific [place] >= 1.030 (1.005-1.035) 07/19/18 12:00 Urine Protein Trace mg/dL (<30 mg/dL) H 07/19/18 12:00 Urine Glucose (UA) Negative mg/dL (NEGATIVE) 07/19/18 12:00 Urine Ketones Trace mg/dL (NEGATIVE) H 07/19/18 12:00 Urine Blood Negative (NEGATIVE) 07/19/18 12:00 Urine Nitrate Negative (NEGATIVE) 07/19/18 12:00 Urine Bilirubin Negative (NEGATIVE) 07/19/18 12:00 Urine Urobilinogen 0.2 E.U./dL (<1 E.U./dL) 07/19/18 12:00 Ur Leukocyte Esterase Negative Alvino/uL (NEGATIVE) 07/19/18 12:00 Urine RBC 0 - 2 /hpf (0-2) 07/19/18 12:00 Urine WBC 0 - 2 /hpf (0-6) 07/19/18 12:00 Ur Epithelial Cells None /hpf (0-5) 07/19/18 12:00 Urine Bacteria Few /hpf (NONE) 07/19/18 12:00 Urine Opiates Screen Positive (NEGATIVE) H 07/08/18 15:15 Urine Methadone Screen Negative (NEGATIVE) 07/08/18 15:15 Ur Barbiturates Screen Negative (NEGATIVE) 07/08/18 15:15 Valproic Acid 71 ug/mL (50.0-100.0) 07/19/18 08:27 Ur Phencyclidine Scrn Negative (NEGATIVE) 07/08/18 15:15 Ur Amphetamines Screen Negative (NEGATIVE) 07/08/18 15:15 U Benzodiazepines Scrn Negative (NEGATIVE) 07/08/18 15:15 U Oth Cocaine Metabols Negative (NEGATIVE) 07/08/18 15:15 U Cannabinoids Screen Positive (NEGATIVE) H 07/08/18 15:15 Alcohol, Quantitative < 10 mg/dL (0-10) 07/08/18 14:40 Hepatitis A IgM Ab Negative (NEGATIVE) 07/15/18 07:45 Hep Bs Antigen Reactive (NEGATIVE) 07/15/18 07:45 Hep Bs Ag Neutralizatn Confirmed positive H 07/15/18 07:45 Hep Bs Antibody Negative (NEGATIVE) 07/19/18 08:27 Hep Bs Antibody, Quant <5 mIU/mL (>or=10) L 07/19/18 10:00 Hep B Core Total Ab Reactive (Non Reactive) H 07/19/18 10:00 Hep B Core IgM Ab Negative (NEGATIVE) 07/16/18 10:30 Hep B DNA Interpret 7.74 log IU/mL (<1.30) H 07/19/18 08:27 Hepatitis Be Antigen Reactive (Non-reactive) H 07/19/18 10:00 Hepatitis C Antibody Negative (NEGATIVE) 07/15/18 07:45 HIV 1&2 Ag/Ab, 4th Gen Nonreactive (Nonreactive) 07/10/18 04:30 Ur L.pneumophila Ag Negative (NEGATIVE) 07/09/18 11:30 Blood Type O POSITIVE 07/08/18 14:40 Blood Type Confirm O POSITIVE 07/08/18 16:00 Antibody Screen Negative 07/08/18 14:40 BBK History Checked No verified bt 07/08/18 14:40 - Hospital Course Hospital Course: Prarish Garibay DO, PGY-1 Hospitalist Discharge Summary for Dr. Elayne Walker Prior to admission: Patient is a 48 year old male with unknown PMH who presented via EMS s/p VFIB cardiac arrest and s/p ROSC. [facility] CT completed on admission was negative for concerning findings. Hospitalization course: Immediately upon admission, targeted temperature management was undertaken per ICU team. Targeted temperature management was subsequently continued for 24 hrs per protocol. He was also started on amio and heparin drip with low Tv ventilation. He continued to improve and sedation was slowly weaned from vent. He was subsequently extubated and mental status continued to improve. Neurology continued to follow him and repeat head CT and brain MRI were both negative for conerning changes. He continued to improve with PT/OT, and speech therapy. He continued to have additional cardiac w/u as well. TTE found severely depressed EF. He eventually had cardiac cath which identified no concerning stenosis but identified dilated CM with EF of 25-30%. It was subsequently recommended that he undergo ICD placement at an outside facility, [facility]. Situation was discussed with patient's family regularly, and patient's sister provided consent for patient transfer. Patient was subsequently transferred to [facility] for ICD placement and additional management. Patient seen, examined, and discharge plan discussed with my attending Dr. Elayne Garibay D.O. IM Resident PGY-1 Discharge Exam - Head Exam Head Exam: ATRAUMATIC, NORMOCEPHALIC - Eye Exam Eye Exam: EOMI, PERRL - ENT Exam ENT Exam: Mucous Membranes Moist - Neck Exam Neck exam: Full Rom, Normal Inspection - Respiratory Exam Respiratory Exam: Clear to PA & Lateral, NORMAL BREATHING PATTERN, UNREMARKABLE. absent: Accessory Muscle Use, Chest Wall Tenderness, Rales, Rhonchi, Wheezes, Respiratory Distress - Cardiovascular Exam Cardiovascular Exam: REGULAR RHYTHM, RRR, +S1, +S2. absent: Diastolic murmur, Gallop, Rubs, Systolic Murmur - GI/Abdominal Exam GI & Abdominal Exam: Normal Bowel Sounds, Soft, Unremarkable. absent: Tenderness - Extremities Exam Extremities exam: full ROM, normal inspection - Back Exam Back exam: NORMAL INSPECTION - Neurological Exam Neurological exam: Alert, CN II-XII Intact, Oriented x3 Additional comments: still has speech deficit, however, significantly improved from prior exams - Psychiatric Exam Psychiatric exam: Anxious - Skin Skin Exam: Dry, Intact, Warm Discharge Plan - Follow Up Plan Condition: FAIR Disposition: OTHER INSTITUTION Additional Instructions: Please follow up at [facility] for Hepatitis B infection. You are transferred to [facility] for defibrillator placement with Dr Neff. Please follow up with your primary care doctor upon discharge from [facility]. Please follow discharge instructions from [facility]. Referrals: Wali Scott MD [Primary Care Provider] - Michael Neff MD [Medical Doctor] - Kelby Guerrero MD [Staff Provider] - <Carmela Walker - Last Filed: 07/30/18 09:02> Provider - Provider Date of Admission: 07/08/18 15:56 Attending physician: Carmela Walker DO Primary care physician: Wali Scott MD Consults: 07/08/18 16:38 Neurology Consult Stat Comment: Consulting Provider: Hai Hackett Consulting Physician: Hai Hackett Reason for Consult: cardiac arrest 07/08/18 16:39 Cardiology Consult Stat Comment: Consulting Provider: Kelby Guerrero Consulting Physician: Kelby Guerrero Reason for Consult: cardiac arrest, 07/08/18 16:40 Infectious Disease Consult Routine Comment: Consulting Provider: Ever Miller Consulting Physician: Ever Miller Reason for Consult: empiric abx recs, cardiac arrest 07/09/18 12:27 Palliative Care Consult Routine Comment: Consulting Provider: Elaine Renae Physician Instructions: Reason For Exam: s/p cardiac arrest with ROSC 07/10/18 07:08 Theater Projectionist [Case Management Referral] Routine Comment: Physician Instructions: Reason For Exam: Reason for Referral: Discharge Planning Hospital Course - Lab Results Lab Results: Micro Results 07/14/18 23:30 Sputum Induced Gram Stain - Final 07/14/18 23:30 Sputum Induced Sputum Culture - Final NORMAL ORAL VIKTORIA 07/11/18 13:30 Blood Blood Culture - Final NO GROWTH AFTER 5 DAYS 07/11/18 13:30 Blood Gram Stain - Final TEST NOT PERFORMED 07/11/18 13:00 Blood Blood Culture - Final NO GROWTH AFTER 5 DAYS 07/11/18 13:00 Blood Gram Stain - Final TEST NOT PERFORMED 07/09/18 15:20 Blood Blood Culture - Final NO GROWTH AFTER 5 DAYS 07/09/18 15:20 Blood Gram Stain - Final TEST NOT PERFORMED 07/08/18 15:15 Blood-Venous Blood Culture - Final NO GROWTH AFTER 5 DAYS 07/08/18 15:15 Blood-Venous Gram Stain - Final TEST NOT PERFORMED 07/08/18 14:40 Blood-Venous Blood Culture - Final NO GROWTH AFTER 5 DAYS 07/08/18 14:40 Blood-Venous Gram Stain - Final TEST NOT PERFORMED 07/08/18 18:11 Naris MRSA Culture (Admit) - Final MRSA NOT DETECTED 07/08/18 15:15 Urine,Catheterized Urine Culture - Final No Growth (<1,000 CFU/ML) Most Recent Lab Values WBC 8.4 10^3/uL (4.5-11.0) 07/24/18 06:00 RBC 3.62 10^6/uL (3.5-6.1) 07/24/18 06:00 Hgb 11.3 g/dL (14.0-18.0) L 07/24/18 06:00 Hct 35.2 % (42.0-52.0) L 07/24/18 06:00 MCV 97.2 fl (80.0-105.0) 07/24/18 06:00 MCH 31.2 pg (25.0-35.0) 07/24/18 06:00 MCHC 32.1 g/dl (31.0-37.0) 07/24/18 06:00 RDW 12.4 % (11.5-14.5) 07/24/18 06:00 Plt Count 283 10^3/uL (120.0-450.0) 07/24/18 06:00 MPV 10.2 fl (7.0-11.0) 07/24/18 06:00 Neut % (Auto) 66.2 % (50.0-68.0) 07/24/18 06:00 Lymph % (Auto) 23.4 % (22.0-35.0) 07/24/18 06:00 [place] % (Auto) 8.6 % (1.0-6.0) H 07/24/18 06:00 Eos % (Auto) 1.4 % (1.5-5.0) L 07/24/18 06:00 Baso % (Auto) 0.4 % (0.0-3.0) 07/24/18 06:00 Lymph # (Auto) 2.0 (1.2-3.4) 07/24/18 06:00 [place] # (Auto) 0.7 (0.1-0.6) H 07/24/18 06:00 Eos # (Auto) 0.1 (0.0-0.7) 07/24/18 06:00 Baso # (Auto) 0.03 K/mm3 (0.0-2.0) 07/24/18 06:00 Absolute Neuts (auto) 5.53 (1.4-6.5) 07/24/18 06:00 Neutrophils % (Manual) 93 % (50.0-70.0) H 07/08/18 22:03 Band Neutrophils % 4 % (0-2) H 07/08/18 22:03 Lymphocytes % (Manual) 1 % (22.0-35.0) L 07/08/18 22:03 Monocytes % (Manual) 1 % (1.0-6.0) 07/08/18 22:03 Metamyelocytes % 1 % 07/08/18 22:03 Platelet Evaluation Normal (NORMAL) 07/08/18 22:03 PT 12.7 SECONDS (9.4-12.5) H 07/09/18 21:10 INR 1.14 07/09/18 21:10 APTT 50.0 Seconds (26.9-38.3) H 07/12/18 04:00 pCO2 34 mm/Hg (35-45) L 07/15/18 05:00 pO2 99.0 mm/Hg (80-100) 07/15/18 05:00 HCO3 27.8 mmol/L (21-28) 07/15/18 05:00 ABG pH 7.52 (7.35-7.45) H 07/15/18 05:00 ABG Total CO2 28.8 mmol.L (22-28) H 07/15/18 05:00 ABG O2 Saturation 100.1 % (95-98) H 07/15/18 05:00 ABG O2 Content 15.6 ML/dl (15-23) 07/15/18 05:00 ABG Base Excess 4.9 mmol/L (-2.0-3.0) H 07/15/18 05:00 ABG Hemoglobin 11.4 g/dL (11.7-17.4) L 07/15/18 05:00 ABG Carboxyhemoglobin 2.6 % (0.5-1.5) H 07/15/18 05:00 POC ABG HHb (Measured) -0.1 % (0-5) L 07/15/18 05:00 ABG Methemoglobin 1.2 % (0.0-3.0) 07/15/18 05:00 ABG O2 Capacity 15.6 mL/dl (16-24) L 07/15/18 05:00 ABG Potassium 3.2 mmol/L (3.6-5.2) L 07/09/18 17:00 VBG pH 7.30 (7.32-7.43) L 07/09/18 01:30 VBG pCO2 60.0 (40-60) 07/09/18 01:30 VBG HCO3 29.5 mmol/l (21-28) H 07/09/18 01:30 VBG Total CO2 31.3 mmol.L (22-28) H 07/09/18 01:30 VBG O2 Sat (Calc) 76.0 % (40-65) H 07/09/18 01:30 VBG Base Excess 1.6 mmol/L (0.0-2.0) 07/09/18 01:30 VBG Potassium 3.0 mmol/L (3.6-5.2) L 07/09/18 01:30 Hgb O2 Saturation 96.2 % (95.0-98.0) 07/15/18 05:00 Sodium 139.0 mmol/L (132-148) 07/09/18 17:00 Chloride 105.0 mmol/L (98-107) 07/09/18 17:00 Glucose 111 mg/dl (75-110) H 07/09/18 17:00 Lactate 0.9 mmol/L (0.7-2.1) 07/09/18 17:00 Mechanical Rate 20 07/08/18 18:02 FiO2 40.0 % 07/15/18 05:00 Tidal Volume 450 07/08/18 18:02 PEEP 5 07/08/18 18:02 Crit Value Called To Madeline bernard rn icu 07/09/18 01:30 Crit Value Called By Hui 07/09/18 01:30 Blood Gas Notified Time 148 07/09/18 01:30 Sodium 142 mmol/L (132-148) 07/24/18 06:00 Potassium 4.0 mmol/L (3.6-5.0) 07/24/18 06:00 Chloride 105 mmol/L (98-107) 07/24/18 06:00 Carbon Dioxide 32 mmol/L (21-33) 07/24/18 06:00 Anion Gap 10 (10-20) 07/24/18 06:00 BUN 21 mg/dL (7-21) 07/24/18 06:00 Creatinine 1.0 mg/dl (0.8-1.5) 07/24/18 06:00 Est GFR ( Amer) > 60 07/24/18 06:00 Est GFR (Non-Af Amer) > 60 07/24/18 06:00 POC Glucose (mg/dL) 98 mg/dL (65-110) 07/13/18 06:15 Random Glucose 87 mg/dL (70-110) 07/24/18 06:00 Hemoglobin A1c 5.0 % (4.2-6.5) 07/08/18 18:20 Calcium 8.6 mg/dL (8.4-10.5) 07/24/18 06:00 Ionized Calcium 4.4 mg/dL (4.80-5.60) L 07/09/18 05:20 Phosphorus 4.7 mg/dL (2.5-4.5) H 07/16/18 05:45 Magnesium 2.5 mg/dL (1.7-2.2) H 07/20/18 06:00 Total Bilirubin 0.6 mg/dL (0.2-1.3) 07/24/18 06:00 AST 67 U/L (17-59) H 07/24/18 06:00 ALT 40 U/L (7-56) 07/24/18 06:00 Alkaline Phosphatase 70 U/L (38-126) 07/24/18 06:00 Troponin I 7.60 ng/mL H* 07/09/18 01:30 NT-Pro-B Natriuret Pep 485 pg/mL (0-450) H 07/08/18 14:40 Total Protein 6.4 g/dL (5.8-8.3) 07/24/18 06:00 Albumin 3.3 g/dL (3.0-4.8) 07/24/18 06:00 Globulin 3.1 gm/dL 07/24/18 06:00 Albumin/Globulin Ratio 1.1 (1.1-1.8) 07/24/18 06:00 Triglycerides 88 mg/dL (35-160) 07/08/18 14:20 Cholesterol 184 mg/dL (130-200) 07/08/18 14:20 LDL Cholesterol Direct 84 mg/dL (0-129) 07/08/18 14:20 HDL Cholesterol 85 mg/dL (29-60) H 07/08/18 14:20 Procalcitonin 0.11 NG/ML (0.19-0.49) L 07/17/18 08:01 Thyroxine (T4) 7.4 ug/dL (5.5-11.0) 07/08/18 14:50 TSH 3rd Generation 6.37 mIU/mL (0.46-4.68) H 07/08/18 14:40 Arterial Blood Potassium 3.2 mmol/L (3.6-5.2) L 07/09/18 17:00 Venous Blood Potassium 3.0 mmol/L (3.6-5.2) L 07/09/18 01:30 Urine Color Yellow (YELLOW) 07/19/18 12:00 Urine Appearance Clear (CLEAR) 07/19/18 12:00 Urine pH 6.0 (4.7-8.0) 07/19/18 12:00 Ur Specific [place] >= 1.030 (1.005-1.035) 07/19/18 12:00 Urine Protein Trace mg/dL (<30 mg/dL) H 07/19/18 12:00 Urine Glucose (UA) Negative mg/dL (NEGATIVE) 07/19/18 12:00 Urine Ketones Trace mg/dL (NEGATIVE) H 07/19/18 12:00 Urine Blood Negative (NEGATIVE) 07/19/18 12:00 Urine Nitrate Negative (NEGATIVE) 07/19/18 12:00 Urine Bilirubin Negative (NEGATIVE) 07/19/18 12:00 Urine Urobilinogen 0.2 E.U./dL (<1 E.U./dL) 07/19/18 12:00 Ur Leukocyte Esterase Negative Alvino/uL (NEGATIVE) 07/19/18 12:00 Urine RBC 0 - 2 /hpf (0-2) 07/19/18 12:00 Urine WBC 0 - 2 /hpf (0-6) 07/19/18 12:00 Ur Epithelial Cells None /hpf (0-5) 07/19/18 12:00 Urine Bacteria Few /hpf (NONE) 07/19/18 12:00 Urine Opiates Screen Positive (NEGATIVE) H 07/08/18 15:15 Urine Methadone Screen Negative (NEGATIVE) 07/08/18 15:15 Ur Barbiturates Screen Negative (NEGATIVE) 07/08/18 15:15 Valproic Acid 71 ug/mL (50.0-100.0) 07/19/18 08:27 Ur Phencyclidine Scrn Negative (NEGATIVE) 07/08/18 15:15 Ur Amphetamines Screen Negative (NEGATIVE) 07/08/18 15:15 U Benzodiazepines Scrn Negative (NEGATIVE) 07/08/18 15:15 U Oth Cocaine Metabols Negative (NEGATIVE) 07/08/18 15:15 U Cannabinoids Screen Positive (NEGATIVE) H 07/08/18 15:15 Alcohol, Quantitative < 10 mg/dL (0-10) 07/08/18 14:40 Hepatitis A IgM Ab Negative (NEGATIVE) 07/15/18 07:45 Hep Bs Antigen Reactive (NEGATIVE) 07/15/18 07:45 Hep Bs Ag Neutralizatn Confirmed positive H 07/15/18 07:45 Hep Bs Antibody Negative (NEGATIVE) 07/19/18 08:27 Hep Bs Antibody, Quant <5 mIU/mL (>or=10) L 07/19/18 10:00 Hep B Core Total Ab Reactive (Non Reactive) H 07/19/18 10:00 Hep B Core IgM Ab Negative (NEGATIVE) 07/16/18 10:30 Hep B DNA Interpret 7.74 log IU/mL (<1.30) H 07/19/18 08:27 Hepatitis Be Antigen Reactive (Non-reactive) H 07/19/18 10:00 Hepatitis C Antibody Negative (NEGATIVE) 07/15/18 07:45 HIV 1&2 Ag/Ab, 4th Gen Nonreactive (Nonreactive) 07/10/18 04:30 Ur L.pneumophila Ag Negative (NEGATIVE) 07/09/18 11:30 Blood Type O POSITIVE 07/08/18 14:40 Blood Type Confirm O POSITIVE 07/08/18 16:00 Antibody Screen Negative 04/16/19 14:40 BBK History Checked No verified bt 07/08/18 14:40 Attending/Attestation - Attestation I have personally seen and examined this patient.: Yes I have fully participated in the care of the patient.: Yes I have reviewed all pertinent clinical information, including history, physical exam and plan: Yes Notes (Text): Please note this DC summary is for 07/28/18 Patient seen and examined by me with resident at approximately 9:40AM on 07/28/18. Case including discharge plan discussed with resident. Agree with above with following additions/corrections. Patient is a 48 year old male with unknown past medical history that presented to the emergency room s/p cardiac arrest and ventricular fibrillation. Please see H&P for full details. Patient was found to v-fib arrest, NSTEMI, dilated cardiomyopathy, severe sepsis secondary to aspiration pneumonia, vent dependent respiratory failure, acute anoxic encephalopathy, transaminitis, and drug abuse. Hypothermia protocol was implemented. Troponins were 0.06, then 9.05, then 7.60. 2D echo per [employer] showed LVEF of 13%, left ventricle is normal size, normal left ventricular wall thickness, systolic function is severely impaired, significant regional wall motion abnormalities noted, mitral regurgitation is mild to moderate, trace aortic regurgitation. Patient was treated with amiodarone and dobutamine drip. Patient was also treated with a heparin drip. Patient was seen by [employer]. Patient had cardiac catheterization on 07/24/18 which per [employer] showed dilated cardiomyopathy with an EF 25-30%, no coronary artery disease, no supra- aortic valvular or aortic insufficiency noted. Per [employer], patient's ventricular fibrillation was likely from dilated cardiomyopathy with electrical instability, no evidence for an ischemic basis for V. fib. Per [employer] elevated troponins were likely due to cardiac arrest. Patient was continued on amiodarone. Patient was transferred to [facility] for ICD placement. Patient was continued on ASA, lisinopril, and Coreg. Patient was also found to have severe sepsis secondary to aspiration pneumonia. CT chest/abdomen/pelvis per radiologist on 07/08/2018 showed findings in the lung may represent pulmonary edema or aspiration pneumonitis, moderate bilateral pleural effusions, no acute findings in the abdomen or pelvis; fluid filled distended stomach, fluid in the small bowel loops, and fluid filled mildly distended colon. Patient was treated with zosyn and doxycycline. ID was following. Blood and urine culture showed no growth. Chest xray 07/19/18 per radiologist showed new faint patchy opacities in the left lung base which can be seen in setting of aspiration. Speech and swallow was following. Patient was extubated 07/15/18. NGT was placed for feeds. Patient was then placed on mechanically altered diet. Patient also had anoxic encephalopathy. Patient was seen by neurologist. Patient was placed on Depakote for seizure prophylaxis. Head CT 07/10/18 per radiologist showed no acute intracranial abnormalities. Brain MRI per radiologist showed no acute cranial findings. EEG per neurologist showed moderate to severe nonspecific diffuse disturbance of cortical activity, in keeping with the diffuse chase matter dysfunction; findings do not suggest a specific etiology. Patient was also found to have transaminitis which improved. Patient was also found to have hepatitis B infection. Patient to follow up outpatient for this per ID. Patient was also found to have drug abuse. UDS was positive for opioids and cannabinoids. Patient was found to have leukocytosis initially which resolved. Patient was afebrile. Patient was transferred to [facility] for AICD placement. On day of discharge, patient stated he was feeling ok. Difficult to understand patient secondary expressive aphasia. No abdominal pain. No nausea or vomiting. No dizziness or lightheadedness. No chest pain or palpitations. No shortness of breath. No fevers or chills. No dysuria. Physical exam: General: Awake and alert lying in bed in no acute distress HEENT: Normocephalic, atraumatic. Extraocular muscles intact. Pupils equal and reactive, no scleral icterus. Oropharynx is pink and moist. Neck is supple. Cardiovascular: Normal rhythm. Normal S1 and S2. No murmurs, rubs, or gallops ap preciated Pulmonary: Normal respiratory effort. No rhonchi, rales, or wheezing appreciated Gastrointestinal: Soft, nondistended. Nontender. Positive bowel sounds all 4 quadrants. No guarding. Musculoskeletal: Moves all extremities. No calf tenderness. No edema appreciated. Central nervous system: Awake and alert. Follows commands. Positive expressive aphasia. Dermatologic: Skin warm and dry. Please see chart for full details. Follow up instructions: Patient to follow up at for Hepatitis infection. Patient being transferred to [facility] for ICD. All instructions explained to the patient in detail. Patient both understands and agrees to all instructions. Written instructions also given. Time spent in discharging the patient including chart review, medication reconciliation, discussion with the patient, medical claims assistant, consultants, and nursing staff was approximately 40 minutes.
--- NOTE | 2018-07-28 15:03 | PN ---
DATE: 07/28/2018 SUBJECTIVE: The patient is without complaints. PHYSICAL EXAMINATION: VITAL SIGNS: Blood pressure is 118/78, heart rate is the 60s. NECK: Negative JVD. LUNGS: Without rales. HEART: S1 and S2. EXTREMITIES: Without edema. LABORATORY DATA: Hemoglobin is 11.5. Chemistries: BUN and creatinine are unremarkable. IMPRESSION: 1. Status post ventricular fibrillation arrest. 2. Nonischemic dilated cardiomyopathy. 3. Anoxic encephalopathy. PLAN: Given these findings, the patient is for transfer to [facility] today for defibrillator placement. Kelby Guerrero MD
== END 2018-07-28 10:00 | disposition short-term general hospital (02) | DRG 121 ==
LOC: ED 14:29 → ERH 15:56 → ICU 17:09 → 2RNO 07-16 20:00 → 3RNO 07-21 13:46 → 2RSO 07-24 08:30 → 3RNO 07-24 14:46 → ERH 07-28 15:58 → 3RNO 07-28 15:59 → ERH 07-28 15:59
PROVIDERS: ADMIT Internal Medicine; ATTEND Hospitalist
PROC: 5A1955Z Respiratory Ventilation, Greater than 96 Consecutive Hours (ICD-10-PCS; principal; 2018-07-08)
PROC: 0B21XEZ Change Endotracheal Airway in Trachea, External Approach (ICD-10-PCS; 2018-07-11)
PROC: 4A023N7 Measurement of Cardiac Sampling and Pressure, Left Heart, Percutaneous Approach (ICD-10-PCS; 2018-07-24)
PROC: B2111ZZ Fluoroscopy of Multiple Coronary Arteries using Low Osmolar Contrast (ICD-10-PCS; 2018-07-24)
PROC: B2151ZZ Fluoroscopy of Left Heart using Low Osmolar Contrast (ICD-10-PCS; 2018-07-24)
DX: I49.01 Ventricular fibrillation (principal); I21.4 Non-ST elevation (NSTEMI) myocardial infarction; A41.9 Sepsis, unspecified organism; J69.0 Pneumonitis due to inhalation of food and vomit; I50.21 Acute systolic (congestive) heart failure; G93.1 Anoxic brain damage, not elsewhere classified; J96.91 Respiratory failure, unspecified with hypoxia; N17.9 Acute kidney failure, unspecified; R57.0 Cardiogenic shock; R65.20 Severe sepsis without septic shock; Z99.11 Dependence on respirator [ventilator] status; I42.0 Dilated cardiomyopathy; B19.10 Unspecified viral hepatitis B without hepatic coma; E87.2 Acidosis; F11.10 Opioid abuse, uncomplicated; F14.10 Cocaine abuse, uncomplicated; J98.11 Atelectasis; T85.638A Leakage of other specified internal prosthetic devices, implants and grafts, initial encounter; I25.5 Ischemic cardiomyopathy; I25.10 Atherosclerotic heart disease of native coronary artery without angina pectoris; E11.9 Type 2 diabetes mellitus without complications; K27.9 Peptic ulcer, site unspecified, unspecified as acute or chronic, without hemorrhage or perforation; R47.01 Aphasia; Z51.5 Encounter for palliative care; Z78.1 Physical restraint status; Z79.82 Long term (current) use of aspirin

== ENCOUNTER 2018-07-29 14:19 | Inpatient (IN) | payer MEDICAID, OTHER ==
[2018-07-29] MEDS ORDERED: White Petrolatum Ophth Oint (Puralube) OU PRN (19:21)
[2018-07-29] MEDS ORDERED: VITS A AND D/WHITE PET/LANOLIN 113.4 APPLIC/113.4 G TUBE TP PRN (19:21)
[2018-07-29] MEDS ORDERED: Lubricant Eye Drops UD OU PRN (19:21)
--- NOTE | 2018-07-29 19:58 | CP.PCM.HP ---
<Bear Liao - Last Filed: 07/29/18 22:21> History of Present Illness - History of Present Illness History of Present Illness: History and Physical for Dr. Sim Liao PGY2 CC: patient without complaint s/p AICD placement for severe non-ischemic cardiomyopathy HPI: Patient is a 48 year old male with past medical history of NSTEMI with severe non-ischemic cardiomyopathy with reduced EF, Hepatitis B, hx of cardiac arrest with ventricular fibrillation s/p resucitation s/p code freeze s/p AICD placement at [facility]. Patient was recently admitted to [facility] ED for witnessed Ventricular fibrillation cardiac arrest s/p ROSC after ACLS initiation and subsequent code freeze with targeted temperature management while in ICU. Patient was evaluated by cardiology and assessed to have dilated cardiomyopathy with an EF of 25%. He was transferred to [facility] for AICD placement. Patient was transferred back to [facility] for further medical management. Patient denies any new additional medication during hospital course at [facility]. Patient denies shortness of breath, chest pain, palpitations, abdominal pain, nausea, vomiting, fever, chills. PMH: NSTEMI with severe non-ischemic cardiomyopathy with reduced EF, Hepatitis B, hx of cardiac arrest with ventricular fibrillation s/p resucitation s/p code freeze PSH: AICD placement ALL: NKDA SOCHX: Tobacco: ETOH: ID: Positive for Opiates and cannabis MEDS: MAR Reviewed Present on Admission - Present on Admission Any Indicators Present on Admission: No Review of Systems - Review of Systems All systems: reviewed and no additional remarkable complaints except (as mentioned in HPI) Past Patient History - Past Social History Smoking Status: Unknown If Ever Smoked - CARDIAC Hx Cardiac Disorders: No - PULMONARY Hx Respiratory Disorders: No - NEUROLOGICAL Hx Neurological Disorder: No - HEENT Hx HEENT Problems: No - RENAL Hx Chronic Kidney Disease: No - ENDOCRINE/METABOLIC Hx Endocrine Disorders: No - HEMATOLOGICAL/ONCOLOGICAL Hx Blood Transfusions: No - INTEGUMENTARY Hx Dermatological Problems: No - MUSCULOSKELETAL/RHEUMATOLOGICAL Hx Musculoskeletal Disorders: No Hx Falls: Yes - GASTROINTESTINAL Hx Gastrointestinal Disorders: No - GENITOURINARY/GYNECOLOGICAL Hx Genitourinary Disorders: No - PSYCHIATRIC Hx Psychophysiologic Disorder: No - SURGICAL HISTORY Hx Surgeries: Yes - ANESTHESIA Hx Anesthesia Reactions: No Meds Allergies/Adverse Reactions: Allergies Allergy/AdvReac Type Severity Reaction Status Date / Time Unobtainable Allergy Verified 07/08/18 14:31 Physical Exam - Constitutional Appears: Non-toxic - Head Exam Head Exam: ATRAUMATIC, NORMAL INSPECTION, NORMOCEPHALIC - Eye Exam Eye Exam: EOMI, PERRL - ENT Exam ENT Exam: Mucous Membranes Moist - Neck Exam Neck exam: Positive for: Full Rom - Respiratory Exam Respiratory Exam: Clear to Auscultation Bilateral, NORMAL BREATHING PATTERN - Cardiovascular Exam Cardiovascular Exam: REGULAR RHYTHM, +S1, +S2 - GI/Abdominal Exam GI & Abdominal Exam: Normal Bowel Sounds, Soft. absent: Firm, Guarding, Tenderness - Extremities Exam Extremities exam: Positive for: normal inspection. Negative for: calf tenderness - Neurological Exam Neurological exam: Alert, Oriented x3 Additional comments: motor and sensory grossly intact - Psychiatric Exam Psychiatric exam: Normal Affect, Normal Mood - Skin Skin Exam: Dry, Intact Results - Labs Result Diagrams: 07/29/18 21:44 07/29/18 21:44 Assessment & Plan - Assessment and Plan (Free Text) Assessment: Patient is a 48 year old male with past medical history of NSTEMI with severe non-ischemic cardiomyopathy with reduced EF, Hepatitis B, hx of cardiac arrest with ventricular fibrillation s/p resucitation s/p code freeze s/p AICD place ment at [facility]. Plan: Severe non-ischemic cardiomyopathy with reduced EF - Patient is s/p AICD placement at [facility] - Continue Carvedilol 12.5mg, Lisinopril 5mg - Continue Amiodarone 200mg - Maintain MAP >65mmHg - Cardiology consult with Dr. Guerrero Hx of AMS 2/2 cardiac arrest - Neuro previously evaluated patient - Continue valproic acid per neuro recs Hepatitis B - HepBsAg (+), HepBsAb Dg <5, HepBsAb neg, Hep B DNA 7.74, HepBeAg Reactive - patient to follow-up with liver specialist @ [facility] in outpatient setting GI/DVT ppx -Pepcid -SCDs Patient seen and case discussed with attending <Susan Montemayor - Last Filed: 07/29/18 22:35> Results - Vital Signs Recent Vital Signs: Last Vital Signs Temp Pulse 77 07/29/18 21:41 Resp 18 07/29/18 18:15 BP Pulse Ox - Labs Result Diagrams: 07/29/18 21:44 07/29/18 21:44 Labs: Laboratory Results - last 24 hr 07/29/18 07/29/18 21:44 21:44 WBC 7.7 RBC 3.94 Hgb 12.5 L Hct 37.6 L MCV 95.4 MCH 31.7 MCHC 33.2 RDW 12.7 Plt Count 241 MPV 10.6 Neut % (Auto) 60.5 Lymph % (Auto) 23.1 Kinney % (Auto) 15.0 H Eos % (Auto) 1.3 L Baso % (Auto) 0.1 Lymph # (Auto) 1.8 Kinney # (Auto) 1.2 H Eos # (Auto) 0.1 Baso # (Auto) 0.01 Absolute Neuts (auto) 4.62 Sodium 137 Potassium 4.8 Chloride 96 L Carbon Dioxide 34 H Anion Gap 13 BUN 23 H Creatinine 1.2 Est GFR ( Amer) > 60 Est GFR (Non-Af Amer) > 60 Random Glucose 92 Calcium 8.7 Phosphorus 3.9 Magnesium 2.0 Total Bilirubin 0.4 AST 49 ALT 36 Alkaline Phosphatase 80 Total Protein 6.9 Albumin 3.5 Globulin 3.4 Albumin/Globulin Ratio 1.0 L Attending/Attestation - Attestation I have personally seen and examined this patient.: Yes I have fully participated in the care of the patient.: Yes I have reviewed all pertinent clinical information: Yes Notes (Text): 07/29/18 22:28 Pt seen . Case discussed in detail with the resident. Note: Pt had AICD placed at [facility],not [facility] as noted in the HPI. Agree with rest of documentation,assessment and orders placed. 07/29/18 22:34
[2018-07-29 20:03] VITALS: BMI 20.5
[2018-07-29] MEDS: Valproic Acid 250 mg/5 ml UD Cup PO SCH (21:31)
[2018-07-29 21:49] LABS: BASO # 0.01 K/mm3 (0.0-2.0); BASO % 0.1 % (0.0-3.0); EOS # 0.1 (0.0-0.7); EOS % 1.3 % (1.5-5.0); HEMOGLOBIN 12.5 g/dL (14.0-18.0); LYMPH # 1.8 (1.2-3.4); LYMPH % 23.1 % (22.0-35.0); MEAN CELL VOLUME 95.4 fl (80.0-105.0); MEAN CORPUSCULAR HEMOGLOBIN 31.7 pg (25.0-35.0); MEAN CORPUSCULAR HGB CONC 33.2 g/dl (31.0-37.0); MEAN PLATELET VOLUME 10.6 fl (7.0-11.0); MONO # 1.2 (0.1-0.6); RBC 3.94 10^6/uL (3.5-6.1); RED CELL DISTRIBUTION WIDTH 12.7 % (11.5-14.5); WHITE BLOOD COUNT 7.7 10^3/uL (4.5-11.0)
[2018-07-29 22:03] LABS: ALBUMIN 3.5 g/dL (3.0-4.8); ALT/SGPT 36 U/L (7-56); AST/SGOT 49 U/L (17-59); BLOOD UREA NITROGEN 23 mg/dL (7-21); CALCIUM 8.7 mg/dL (8.4-10.5); GFR NON-AFRICAN AMERICAN > 60
[2018-07-30 06:58] LABS: ALB/GLOB RATIO 1.1 (1.1-1.8); ALBUMIN 3.9 g/dL (3.0-4.8); ALT/SGPT 36 U/L (7-56); AST/SGOT 54 U/L (17-59); BLOOD UREA NITROGEN 19 mg/dL (7-21); CALCIUM 9.2 mg/dL (8.4-10.5); GFR NON-AFRICAN AMERICAN > 60
[2018-07-30 07:23] LABS: BASO # 0.03 K/mm3 (0.0-2.0); BASO % 0.4 % (0.0-3.0); EOS # 0.1 (0.0-0.7); EOS % 1.5 % (1.5-5.0); HEMOGLOBIN 12.7 g/dL (14.0-18.0); LYMPH % 24.9 % (22.0-35.0); MEAN CELL VOLUME 95.1 fl (80.0-105.0); MEAN CORPUSCULAR HEMOGLOBIN 31.3 pg (25.0-35.0); MEAN CORPUSCULAR HGB CONC 32.9 g/dl (31.0-37.0); MEAN PLATELET VOLUME 10.9 fl (7.0-11.0); MONO # 0.8 (0.1-0.6); MONO % 10.2 % (1.0-6.0); RBC 4.06 10^6/uL (3.5-6.1); RED CELL DISTRIBUTION WIDTH 12.8 % (11.5-14.5); WHITE BLOOD COUNT 8.1 10^3/uL (4.5-11.0)
[2018-07-30] MEDS: Valproic Acid 250 mg/5 ml UD Cup PO SCH ×2 (09:53→21:28)
--- NOTE | 2018-07-30 13:43 | CP.PCM.PN ---
<Parrish Garibay - Last Filed: 07/30/18 14:16> Subjective - Date & Time of Evaluation Date of Evaluation: 07/30/18 Time of Evaluation: 07:00 - Subjective Subjective: Parrish Garibay DO, PGY-1 Hospitalist Progress Note for Dr. Elayne Walker Patient was seen and examined at bedside this AM. He has no new complaints and responds that he is feeling fine. He reports minimal pain over the AICD insertion site. He is s/p AICD placement at [facility] yesterday. He denies fever/chills, CP, SOB, abd pain/nausea/vomiting, or urinary complaints. Objective - Vital Signs/Intake and Output Vital Signs (last 24 hours): Temp Pulse Resp BP Pulse Ox 97 F L 78 20 107/75 98 07/30/18 06:00 07/30/18 10:00 07/30/18 06:00 07/30/18 09:50 07/30/18 06:00 Intake and Output: 07/30/18 07/30/18 06:59 18:59 Intake Total 240 Balance 240 - Medications Medications: Current Medications Amiodarone HCl (Cordarone) [address] [facility] Last Admin: 07/30/18 08:32 Dose: 400 mg Artificial Tears (Puralube Opht Oint) 1 appl OU Q4H PRN PRN Reason: Dry eyes Artificial Tears (Refresh Opth Soln) 0.3 ml OU Q4H PRN PRN Reason: Dry eyes Carvedilol (Coreg) 6.[address] [facility] Last Admin: 07/30/18 09:50 Dose: 6.25 mg Famotidine (Pepcid) [address] [facility] Last Admin: 07/29/18 21:31 Dose: 20 mg Lisinopril (Zestril) [address] [facility] Last Admin: 07/30/18 09:49 Dose: 5 mg Valproate Sodium (Depakene Oral Soln) 1,[address] [facility] Last Admin: 07/30/18 09:53 Dose: 1,000 mg - Labs Labs: 07/30/18 06:20 07/30/18 06:20 - Constitutional Appears: Non-toxic, No Acute Distress - Head Exam Head Exam: ATRAUMATIC, NORMOCEPHALIC - Eye Exam Eye Exam: EOMI, PERRL Pupil Exam: PERRL - ENT Exam ENT Exam: Mucous Membranes Moist - Neck Exam Neck Exam: Full ROM. absent: Lymphadenopathy, Thyromegaly - Respiratory Exam Respiratory Exam: Clear to Ausculation Bilateral, NORMAL BREATHING PATTERN. absent: Accessory Muscle Use, Rales, Rhonchi, Wheezes, Respiratory Distress - Cardiovascular Exam Cardiovascular Exam: REGULAR RHYTHM, RRR, +S1, +S2. absent: Gallop, Rubs, Murmur - GI/Abdominal Exam GI & Abdominal Exam: Soft, Normal Bowel Sounds. absent: Guarding, Tenderness, Rebound - Extremities Exam Extremities Exam: Full ROM. absent: Pedal Edema - Back Exam Back Exam: NORMAL INSPECTION - Neurological Exam Neurological Exam: Alert, Awake, Oriented x3 Additional comments: persistent dysarthria, but improved from prior exams - Psychiatric Exam Psychiatric exam: Normal Affect, Normal Mood - Skin Skin Exam: Dry, Intact, Warm Assessment and Plan - Assessment and Plan (Free Text) Assessment: 48 yo M with no known PMH who presented s/p VFib arrest (25 minutes of CPR) with subsequent targeted temperature management. He continued to improve s/p targeted temperature management and was subsequently extubated and transferred out of [facility]. His course is complicated by severe LV systolic dysfunction and was first started on dobutamine in MICU, was maintained on amiodarone, coreg, and is now s/p AICD placement POD 1. Plan: S/p VFib Arrest/NSTEMI with dilated cardiomyopathy Cardiac cath showed dilated CM with EF of 25-30% Patient was transferred yesterday to [facility] for AICD placement and is now s/p placement POD 1 Continue amiodarone, coreg, lisinopril per cardiology recs Cardiology following, all recs appreciated Encephalopathy 2/2 cardiac arrest Neurological status is improving Continues to follow commands well, but continues to have aphasia Continue PT/OT, speech therapy Continue seizure pxns and depakote Patient had fall this afternoon (see fall progress note for full details) Will place on continuous avasys (video monitoring), recommend frequent re- orientation as patient responds to commands May consider 1:1 observation if worsens S/p severe sepsis 2/2 aspiration PNA Completed treatment with zosyn, doxycycline Repeat blood, urine cx negative ID following, all recs appreciated Acute Hep B Infection Patient confirmed to have HbcAb, HbsAg, and HbeAg positive ID recommends outpatient treatment Will arrange when patient is discharged IVDA Patient tested positive for opioids and cannabis on admission Patient has known history of IVDA per family Drug abuse cessation strongly advised DVT/GI PPX: Lovenox/pepcid Full Code Dysphagia/modified diet Monitor on telemetry Patient seen, examined with, and plan discussed with my attending Dr. Elayne Garibay D.O. IM Resident PGY-1 Pager: [phone] <Carmela Walker R - Last Filed: 08/01/18 17:42> Objective - Vital Signs/Intake and Output Vital Signs (last 24 hours): Temp Pulse Resp BP Pulse Ox 98.7 F 70 18 108/76 99 08/01/18 15:52 08/01/18 15:52 08/01/18 15:52 08/01/18 15:52 08/01/18 15:52 Intake and Output: 08/01/18 08/01/18 06:59 18:59 Intake Total 1800 Output Total 900 Balance 900 - Medications Medications: Current Medications Amiodarone HCl (Cordarone) [address] [facility] Artificial Tears (Puralube Opht Oint) 1 appl OU Q4H PRN PRN Reason: Dry eyes Artificial Tears (Refresh Opth Soln) 0.3 ml OU Q4H PRN PRN Reason: Dry eyes Carvedilol (Coreg) 6.[address] [facility] Last Admin: 08/01/18 10:07 Dose: Not Given Enoxaparin Sodium (Lovenox) 40 mg SC DAILY [facility]; Protocol Last Admin: 08/01/18 10:07 Dose: 40 mg Famotidine (Pepcid) [address] [facility] Last Admin: 07/31/18 22:24 Dose: 20 mg Lisinopril (Zestril) [address] [facility] Last Admin: 08/01/18 10:06 Dose: Not Given Valproate Sodium (Depakene Oral Soln) 1,[address] [facility] Last Admin: 08/01/18 10:07 Dose: 1,000 mg - Labs Labs: 08/01/18 06:15 08/01/18 06:15 Attending/Attestation - Attestation I have personally seen and examined this patient.: Yes I have fully participated in the care of the patient.: Yes I have reviewed all pertinent clinical information, including history, physical exam and plan: Yes Notes (Text): Patient seen and examined by me with resident at approximately 8:25AM on 07/30/18. Case including HPI, physical exam, and assessment and plan discussed with resident. Agree with above with following additions/corrections. Patient is a 48 year old male with unknown past medical history that presented to the emergency room s/p cardiac arrest and ventricular fibrillation on 07/08/18. Patient was transferred to [facility] on 07/28/18 for AICD plac ement. Patient returned to [facility] on 07/29/18 s/p AICD placement. Patient awake and alert. Answers some questions. Has some hip pain from fall yesterday. Patient was advised not to try to get out of bed on his own. Patient denies any nausea or vomiting. No abdominal pain. No chest pain or shortness of breath. Patient nods yes or no for most questions. Patient is following commands. Physical exam: General: Awake and alert lying in bed in no acute distress HEENT: Normocephalic, atraumatic. Extraocular muscles intact. Pupils equal and reactive, no scleral icterus. Oropharynx is pink. Neck is supple. Cardiovascular: Normal rhythm. Normal S1 and S2. No murmurs, rubs, or gallops a ppreciated Pulmonary: Normal respiratory effort. No rhonchi, rales, or wheezing appreciated Gastrointestinal: Soft, nondistended. Nontender. Positive bowel sounds all 4 quadrants. No guarding. Musculoskeletal: Moves all extremities. No calf tenderness. No edema appreciated. Central nervous system: Awake and alert. Following commands. Speech slowly improving. Dermatologic: Skin warm and dry. Assessment and plan: Patient is a 48 year old male with unknown past medical history that presented to the emergency room s/p cardiac arrest and ventricular fibrillation. 1. S/P V-fib arrest. NSTEMI. Nonischemic dilated cardiomyopathy. S/P AICD placement. Continue amiodarone. Continue Lisinopril and Coreg. No ASA per load tester. Cardiology recommendations appreciated. 2. S/P acute anoxic encephalopathy. Speech and swallow following. Aphasia slowly improving. Continue seizure precautions. Continue Depakote for seizure prophylaxis. Continue supportive care. Continue PT. PT recommending ARGENIS 3. Hepatiis B infection. Patient will need to follow up outpatient with [facility] for further work up and treatment. 4. Drug abuse. Urine drug screen positive for opioids and cannabinoids. 5. GI/DVT prophylaxis. Pepcid/Lovenox. 6. Dipso. Awaiting ARGENIS. Case was discussed in detail with the patient regarding current diagnosis, study results, and treatment plan.
--- NOTE | 2018-07-30 14:12 | PCM.FALL ---
<Parrish Garibay - Last Filed: 07/30/18 14:12> Post Fall Progress Note - Post Fall Fall Date: 07/30/18 Fall Time: 14:00 Description of Fall: Patient fell on tray table, landed on L hip. Nursing staff witnessed fall. - Post Fall Exam Vital Sign: Temp Pulse Resp BP Pulse Ox 97 F L 78 20 107/75 98 07/30/18 06:00 07/30/18 10:00 07/30/18 06:00 07/30/18 09:50 07/30/18 06:00 Skull Exam: Negative for: Scalp wound, Scalp hematoma, Scalp depression, Ridge in skull Eye Exam: Positive for: Pupils equal, Pupils reactive Ear Exam: Negative for: Discharge, Bleeding Nose Exam: Negative for: Discharge, Bleeding Skin Exam: Negative for: Colour, Lacerations, Grazes, Bruising Mouth Exam: Negative for: Tongue bitten, Teeth dislodge Neck Exam: Negative for: Tenderness, Tingling, Weakness Spinal Exam: Negative for: Tenderness, Tingling, Weakness Chest Exam: Positive for: Tenderness in collar bones (tenderness near L collar bone, but patient is s/p AICD placement today). Negative for: Difficulty breathing, Tenderness in ribs Abdomen Exam: Negative for: Tenderness Pelvic Exam: Negative for: Tenderness, Hematuria Arm Exam: Negative for: Deformity, Alteration in range of movement Leg Exam: Negative for: Deformity, Alteration in range of movement Other pertinent findings: full ROM, tenderness to palpation of L hip joint and near L supraclavicular area near site of AICD placement, otherwise no tenderness to palpation, hematomas, lacerations, or other concerning findings Impression/Plan: Patient is a 48 year old male with recent history of VFib arrest (s/p ROSC, targeted temp management, stabilized, and extubated) with residual confusion and dysarthria. Per nursing staff, patient also fell at [facility] yesterday due to confusion. However, patient follows commands and responds well to re-orientation. Will place on avasys (continuous video monitoring) and encourage frequent re-orientation. Will also get Xrays of L hip to r/o fx or other acute process. Encouraged patient to not ambulate without assistance. Case and plan reviewed and discussed with attending physician at the [facility], Dr. Watson, and nursing staff. <Kelsey Watson - Last Filed: 07/30/18 14:26> Post Fall Progress Note - Post Fall Exam Vital Sign: Temp Pulse Resp BP Pulse Ox 97 F L 78 20 107/75 98 07/30/18 06:00 07/30/18 10:00 07/30/18 06:00 07/30/18 09:50 07/30/18 06:00 Attending/Attestation - Attestation I have personally seen and examined this patient.: Yes I have fully participated in the care of the patient.: Yes I have reviewed all pertinent clinical information, including history, physical exam and plan: Yes
--- NOTE | 2018-07-30 15:09 | RAD ---
Date of service: 07/30/2018 PROCEDURE: Pelvis three views HISTORY: s/p fall COMPARISON: TECHNIQUE: Three views FINDINGS: No evidence of fracture. No significant degenerative changes. The hips and sacroiliac joints are unremarkable IMPRESSION: Negative study
--- NOTE | 2018-07-30 17:40 | CON ---
DATE OF CONSULTATION: 07/30/2018 CARDIOLOGY CONSULTATION HISTORY: The patient is a 48-year-old male, who presented with sudden V-fib arrest. He underwent CPR remotely, and is brought to the emergency room. He was found to have a dilated cardiomyopathy. He was treated with amiodarone successfully Catheterization reveals nonischemic dilated cardiomyopathy. He was found in his urine to have opiates as well as marijuana in his urine Currently, the patient suffers from anoxic encephalopathy. He was sent to [facility] where he had a defibrillator placed. PHYSICAL EXAMINATION: GENERAL: Currently, the patient is in no acute distress. VITAL SIGNS: Blood pressure is 107/75, the heart rate is in the 80s. NECK: Negative JVD. LUNGS: Without rales. CARDIAC: Heart rate S1, S2. EXTREMITIES: Without edema and the wound looks fine. LABORATORY DATA: Hemoglobin is 12.7. BUN and creatinine are unremarkable. The magnesium is 2.1. IMPRESSION: 1. Status post ventricular fibrillation arrest. 2. Nonischemic dilated cardiomyopathy. 3. Substance abuse. 4. Dilated cardiomyopathy. 5. Anoxic encephalopathy. PLAN: Given these findings, we will continue the patient on his amiodarone 400 b.i.d. He is currently on Coreg and lisinopril. We will discontinue his aspirin. Physical therapy has been ordered. From a cardiac perspective, no further workup is necessary. The patient's arrangements for discharge would be appropriate. Kelby Guerrero MD
[2018-07-31 06:27] LABS: BASO # 0.03 K/mm3 (0.0-2.0); BASO % 0.4 % (0.0-3.0); EOS # 0.1 (0.0-0.7); EOS % 1.9 % (1.5-5.0); HEMOGLOBIN 12.9 g/dL (14.0-18.0); LYMPH # 2.2 (1.2-3.4); LYMPH % 30.2 % (22.0-35.0); MEAN CELL VOLUME 94.3 fl (80.0-105.0); MEAN CORPUSCULAR HEMOGLOBIN 31.8 pg (25.0-35.0); MEAN CORPUSCULAR HGB CONC 33.7 g/dl (31.0-37.0); MEAN PLATELET VOLUME 10.6 fl (7.0-11.0); MONO % 13.1 % (1.0-6.0); RBC 4.06 10^6/uL (3.5-6.1); RED CELL DISTRIBUTION WIDTH 12.6 % (11.5-14.5); WHITE BLOOD COUNT 7.4 10^3/uL (4.5-11.0)
[2018-07-31 06:46] LABS: ALB/GLOB RATIO 1.1 (1.1-1.8); ALBUMIN 3.7 g/dL (3.0-4.8); ALT/SGPT 38 U/L (7-56); AST/SGOT 68 U/L (17-59); BLOOD UREA NITROGEN 19 mg/dL (7-21); CALCIUM 9.1 mg/dL (8.4-10.5); GFR NON-AFRICAN AMERICAN > 60
[2018-07-31] MEDS: Valproic Acid 250 mg/5 ml UD Cup PO SCH ×2 (09:46→22:24)
[2018-07-31] MEDS: Enoxaparin 40 mg Syringe SC SCH (09:46)
--- NOTE | 2018-07-31 10:25 | PN ---
DATE: 07/31/2018 SUBJECTIVE: The patient remains in bed without distress. PHYSICAL EXAMINATION: VITAL SIGNS: Blood pressure 102/69, heart rate in the 80s. NECK: Negative JVD. LUNGS: Without rales. HEART: S1, S2. EXTREMITIES: Without edema. LABORATORY DATA: Hemoglobin is 12.9. Chemistries are unremarkable. Magnesium is 2.1. IMPRESSION: 1. Status post ventricular fibrillation arrest. 2. Anoxic encephalopathy. 3. Dilated cardiomyopathy. 4. Status post implantable cardioverter defibrillator placement. PLAN: Given these findings, the patient's cardiac status is at its optimum at this time. Awaiting for placement. Kelby Guerrero MD
--- NOTE | 2018-07-31 12:09 | CP.PCM.PN ---
<Parrish Garibay - Last Filed: 07/31/18 12:17> Subjective - Date & Time of Evaluation Date of Evaluation: 07/31/18 Time of Evaluation: 07:00 - Subjective Subjective: Parrish Garibay DO, PGY-1 Hospitalist Progress Note for Dr. Elayne Walker Patient was seen and examined at bedside this AM. He appears more somnolent than on prior exams but responds verbally and opens eyes spontaneously when prompted. He verbalizes no new complaints at this time. He states his L hip pain is improved. Objective - Vital Signs/Intake and Output Vital Signs (last 24 hours): Temp Pulse Resp BP Pulse Ox 97.8 F 77 20 108/74 96 07/31/18 06:00 07/31/18 09:46 07/31/18 06:00 07/31/18 09:46 07/31/18 06:00 Intake and Output: 07/31/18 07/31/18 06:59 18:59 Intake Total 0 Output Total 400 Balance -400 - Medications Medications: Current Medications Amiodarone HCl (Cordarone) 400 mg PO BRKDIN [facility] Last Admin: 07/31/18 08:39 Dose: 400 mg Artificial Tears (Puralube Opht Oint) 1 appl OU Q4H PRN PRN Reason: Dry eyes Artificial Tears (Refresh Opth Soln) 0.3 ml OU Q4H PRN PRN Reason: Dry eyes Carvedilol (Coreg) 6.25 mg PO BID [facility] Last Admin: 07/31/18 09:45 Dose: 6.25 mg Enoxaparin Sodium (Lovenox) 40 mg SC DAILY [facility]; Protocol Last Admin: 07/31/18 09:46 Dose: 40 mg Famotidine (Pepcid) 20 mg PO HS [facility] Last Admin: 07/30/18 21:28 Dose: 20 mg Lisinopril (Zestril) 5 mg PO DAILY [facility] Last Admin: 07/31/18 09:46 Dose: 5 mg Valproate Sodium (Depakene Oral Soln) 1,000 mg PO Q12 [facility] Last Admin: 07/31/18 09:46 Dose: 1,000 mg - Labs Labs: 07/31/18 06:00 07/31/18 06:00 - Constitutional Appears: Non-toxic, No Acute Distress - Head Exam Head Exam: ATRAUMATIC, NORMOCEPHALIC - Eye Exam Eye Exam: EOMI, PERRL - ENT Exam ENT Exam: Mucous Membranes Moist - Neck Exam Neck Exam: Full ROM. absent: Thyromegaly - Respiratory Exam Respiratory Exam: Clear to Ausculation Bilateral, NORMAL BREATHING PATTERN. absent: Accessory Muscle Use, Rales, Rhonchi, Wheezes, Respiratory Distress - Cardiovascular Exam Cardiovascular Exam: REGULAR RHYTHM, RRR, +S1, +S2. absent: Gallop, Rubs, Murmur - GI/Abdominal Exam GI & Abdominal Exam: Soft, Normal Bowel Sounds. absent: Guarding, Tenderness - Extremities Exam Extremities Exam: Tenderness (to L hip joint). absent: Pedal Edema - Back Exam Back Exam: NORMAL INSPECTION - Neurological Exam Neurological Exam: Alert, Awake, Oriented x3 - Psychiatric Exam Psychiatric exam: Normal Affect, Normal Mood - Skin Skin Exam: Dry, Intact, Warm Assessment and Plan - Assessment and Plan (Free Text) Assessment: 48 yo M with no known PMH who presented s/p VFib arrest (25 minutes of CPR) with subsequent targeted temperature management. He continued to improve s/p targeted temperature management and was subsequently extubated and transferred out of MICU. His course is complicated by severe LV systolic dysfunction and was first started on dobutamine in MICU, was maintained on amiodarone, coreg, and is now s/p AICD placement POD 2. Plan: S/p VFib Arrest/NSTEMI with dilated cardiomyopathy Suspect dilated CM is 2/2 recent ischemic event and may have had underlying CM Estimated LVEF 25-30% by cardiac cath Patient is now s/p AICD placement POD 2 Continue amiodarone, coreg, lisinopril per cardiology recs Per cardiology, patient's status has been optimized with current regimen Cardiology following, all recs appreciated Encephalopathy 2/2 cardiac arrest Neurological status waxes and wanes, appears more confused and somnolent today Patient and family members have been refusing speech therapy Continue PT/OT Continue seizure pxns and depakote Xrays completed after patient fall yesterday negative for acute pathology Continue avasys (continuous video monitoring) S/p severe sepsis 2/2 aspiration PNA Resolved s/p treatment with zosyn, doxycycline Continue to monitor for s/sx of infection ID following, all recs appreciated Acute Hep B Infection Patient confirmed to have HbcAb, HbsAg, and HbeAg positive ID recommends outpatient treatment Will arrange when patient is discharged IVDA Patient tested positive for opioids and cannabis on admission Continue to advise for cessation DVT/GI PPX: Lovenox/pepcid Full Code Dysphagia/modified diet Monitor on telemetry Patient seen, examined with, and plan discussed with my attending Dr. Elayne Garibay D.O. IM Resident PGY-1 Pager: [phone] <Carmela Walker R - Last Filed: 08/01/18 17:47> Objective - Vital Signs/Intake and Output Vital Signs (last 24 hours): Temp Pulse Resp BP Pulse Ox 98.7 F 70 18 108/76 99 08/01/18 15:52 08/01/18 15:52 08/01/18 15:52 08/01/18 15:52 08/01/18 15:52 Intake and Output: 08/01/18 08/01/18 06:59 18:59 Intake Total 1800 Output Total 900 Balance 900 - Medications Medications: Current Medications Amiodarone HCl (Cordarone) 200 mg PO Q12H [facility] Last Admin: 08/01/18 17:42 Dose: 200 mg Artificial Tears (Puralube Opht Oint) 1 appl OU Q4H PRN PRN Reason: Dry eyes Artificial Tears (Refresh Opth Soln) 0.3 ml OU Q4H PRN PRN Reason: Dry eyes Carvedilol (Coreg) 6.25 mg PO BID [facility] Last Admin: 08/01/18 17:42 Dose: 6.25 mg Enoxaparin Sodium (Lovenox) 40 mg SC DAILY [facility]; Protocol Last Admin: 08/01/18 10:07 Dose: 40 mg Famotidine (Pepcid) 20 mg PO HS [facility] Last Admin: 07/31/18 22:24 Dose: 20 mg Lisinopril (Zestril) 5 mg PO DAILY [facility] Last Admin: 08/01/18 10:06 Dose: Not Given Valproate Sodium (Depakene Oral Soln) 1,000 mg PO Q12 [facility] Last Admin: 08/01/18 10:07 Dose: 1,000 mg - Labs Labs: 08/01/18 06:15 08/01/18 06:15 Attending/Attestation - Attestation I have personally seen and examined this patient.: Yes I have fully participated in the care of the patient.: Yes I have reviewed all pertinent clinical information, including history, physical exam and plan: Yes Notes (Text): Patient seen and examined by me with resident at approximately 8:35AM on 07/31/18. Case including HPI, physical exam, and assessment and plan discussed with resident. Agree with above with following additions/corrections. Patient is a 48 year old male with unknown past medical history that presented to the emergency room s/p cardiac arrest and ventricular fibrillation on 07/08/18. Patient was transferred to [facility] on 07/28/18 for AICD meena cement. Patient returned to [facility] on 07/29/18 s/p AICD placement. Patient awake and alert. Answers some questions. Nods yes or no for most questions. Still with some aphasia. On Avasys secondary to fall. Denies any pain. No nausea or vomiting. No abdominal pain. Patient is eating his meals. No chest pain or shortness of breath. Patient is following commands. Physical exam: General: Awake and alert lying in bed in no acute distress HEENT: Normocephalic, atraumatic. Extraocular muscles intact. Pupils equal and reactive, no scleral icterus. Oropharynx is pink. Neck is supple. Cardiovascular: Normal rhythm. Normal S1 and S2. No murmurs, rubs, or gallops appreciated Pulmonary: Normal respiratory effort. No rhonchi, rales, or wheezing appreciated Gastrointestinal: Soft, nondistended. Nontender. Positive bowel sounds all 4 quadrants. No guarding. Musculoskeletal: Moves all extremities. No calf tenderness. No edema appreciated. Central nervous system: Awake and alert. Following commands. Speech slowly improving. Dermatologic: Skin warm and dry. Assessment and plan: Patient is a 48 year old male with unknown past medical history that presented to the emergency room s/p cardiac arrest and ventricular fibrillation. 1. S/P V-fib arrest. NSTEMI. Nonischemic dilated cardiomyopathy. S/P AICD placement. Continue amiodarone. Continue Lisinopril and Coreg. No ASA per card iologist. Cardiology recommendations appreciated. 2. S/P acute anoxic encephalopathy. Speech and swallow following. Aphasia slowly improving. Continue seizure precautions. Continue Depakote for seizure prophylaxis. Continue supportive care. Continue PT. PT recommending ARGENIS 3. Fall. Placed on Avasys. Continue fall precautions. Continue PT. ARGENIS pending. Pelvic xray per radiologist showed negative study. 4. Hepatiis B infection. Patient will need to follow up outpatient with [facility] for further work up and treatment. 5. Drug abuse. Urine drug screen at initial admission positive for opioids and cannabinoids. 6. GI/DVT prophylaxis. Pepcid/Lovenox. 7. Dipso. Awaiting ARGENIS. Case was discussed in detail with the patient regarding current diagnosis, study results, and treatment plan.
[2018-08-01 06:40] LABS: BASO # 0.02 K/mm3 (0.0-2.0); BASO % 0.3 % (0.0-3.0); EOS # 0.2 (0.0-0.7); EOS % 2.1 % (1.5-5.0); HEMOGLOBIN 11.8 g/dL (14.0-18.0); LYMPH # 1.8 (1.2-3.4); LYMPH % 24.4 % (22.0-35.0); MEAN CELL VOLUME 94.4 fl (80.0-105.0); MEAN CORPUSCULAR HEMOGLOBIN 31.2 pg (25.0-35.0); MEAN CORPUSCULAR HGB CONC 33.1 g/dl (31.0-37.0); MEAN PLATELET VOLUME 10.8 fl (7.0-11.0); MONO % 13.5 % (1.0-6.0); RBC 3.78 10^6/uL (3.5-6.1); RED CELL DISTRIBUTION WIDTH 12.8 % (11.5-14.5); WHITE BLOOD COUNT 7.3 10^3/uL (4.5-11.0)
[2018-08-01 07:15] LABS: ALBUMIN 3.4 g/dL (3.0-4.8); ALT/SGPT 36 U/L (7-56); AST/SGOT 49 U/L (17-59); BLOOD UREA NITROGEN 23 mg/dL (7-21); CALCIUM 8.6 mg/dL (8.4-10.5); GFR NON-AFRICAN AMERICAN > 60
[2018-08-01] MEDS: Enoxaparin 40 mg Syringe SC SCH (10:07)
[2018-08-01] MEDS: Valproic Acid 250 mg/5 ml UD Cup PO SCH ×2 (10:07→22:00)
--- NOTE | 2018-08-01 13:41 | PN ---
DATE: 08/01/2018 SUBJECTIVE: The patient remains in bed in no acute distress. PHYSICAL EXAMINATION: VITAL SIGNS: Blood pressure is 97/61, heart rate is in the 60s. NECK: Negative JVD. LUNGS: Without rales. HEART: S1, S2. EXTREMITIES: Without edema. LABORATORY DATA: Hemoglobin is 11.8, BUN and creatinine unremarkable. IMPRESSION: 1. Status post ventricular fibrillation arrest. 2. Anoxic encephalopathy. 3. Nonischemic dilated cardiomyopathy. 4. Status post implantable cardioverter defibrillator placement. Given these findings, the patient's cardiac status is currently well-controlled on his present medications. He is to continue amiodarone 400 twice a day. We will continue on his lisinopril as well as his carvedilol. Kelby Guerrero MD
--- NOTE | 2018-08-01 15:31 | CP.PCM.PN ---
<Parrish Garibay - Last Filed: 08/01/18 15:24> Subjective - Date & Time of Evaluation Date of Evaluation: 08/01/18 Time of Evaluation: 07:00 - Subjective Subjective: Parrish Garibay DO, PGY-1 Hospitalist Progress Note for Dr. Elayne Walker Patient was seen and examined at bedside this AM. He appears more awake, alert, and conversant this AM. He follows commands well and is alert to person, time, place, and situation. He offers no additional complaints and denies fever/chills, CP, SOB, abd pain/nausea/vomiting, or urinary complaints. Objective - Vital Signs/Intake and Output Vital Signs (last 24 hours): Temp Pulse Resp BP Pulse Ox 97.9 F 65 20 97/61 L 99 08/01/18 08:31 08/01/18 08:31 08/01/18 08:31 08/01/18 10:07 08/01/18 08:31 Intake and Output: 08/01/18 08/01/18 06:59 18:59 Intake Total 1800 Output Total 900 Balance 900 - Medications Medications: Current Medications Amiodarone HCl (Cordarone) 200 mg PO Q12H [facility] Artificial Tears (Puralube Opht Oint) 1 appl OU Q4H PRN PRN Reason: Dry eyes Artificial Tears (Refresh Opth Soln) 0.3 ml OU Q4H PRN PRN Reason: Dry eyes Carvedilol (Coreg) 6.25 mg PO BID [facility] Last Admin: 08/01/18 10:07 Dose: Not Given Enoxaparin Sodium (Lovenox) 40 mg SC DAILY [facility]; Protocol Last Admin: 08/01/18 10:07 Dose: 40 mg Famotidine (Pepcid) 20 mg PO HS [facility] Last Admin: 07/31/18 22:24 Dose: 20 mg Lisinopril (Zestril) 5 mg PO DAILY [facility] Last Admin: 08/01/18 10:06 Dose: Not Given Valproate Sodium (Depakene Oral Soln) 1,000 mg PO Q12 [facility] Last Admin: 08/01/18 10:07 Dose: 1,000 mg - Labs Labs: 08/01/18 06:15 08/01/18 06:15 - Constitutional Appears: Non-toxic, No Acute Distress - Head Exam Head Exam: ATRAUMATIC, NORMOCEPHALIC - Eye Exam Eye Exam: EOMI, PERRL - ENT Exam ENT Exam: Mucous Membranes Moist - Neck Exam Neck Exam: Full ROM. absent: Tenderness - Respiratory Exam Respiratory Exam: Clear to Ausculation Bilateral, NORMAL BREATHING PATTERN. absent: Rales, Rhonchi, Wheezes - Cardiovascular Exam Cardiovascular Exam: REGULAR RHYTHM, RRR, +S1, +S2. absent: Gallop, Rubs, Murmur - GI/Abdominal Exam GI & Abdominal Exam: Soft, Normal Bowel Sounds. absent: Guarding, Tenderness - Extremities Exam Extremities Exam: Full ROM. absent: Pedal Edema - Back Exam Back Exam: NORMAL INSPECTION - Neurological Exam Neurological Exam: Alert, Awake, Oriented x3 - Psychiatric Exam Psychiatric exam: Normal Affect, Normal Mood - Skin Skin Exam: Dry, Intact, Warm Assessment and Plan - Assessment and Plan (Free Text) Assessment: 48 yo M with no known PMH who presented s/p VFib arrest (25 minutes of CPR) with subsequent targeted temperature management. He continued to improve s/p targeted temperature management and was subsequently extubated and transferred out of MICU. His course is complicated by severe LV systolic dysfunction and was first started on dobutamine in MICU, was maintained on amiodarone, coreg, and is now s/p AICD placement POD 3. Plan: S/p VFib Arrest/NSTEMI with dilated cardiomyopathy May have had underlying cardiomyopathy but likely 2/2 VFib arrest event Patient is now s/p AICD placement POD 3 Per cardiology, may decrease dose of amiodarone to 200 mg BID Otherwise patient is medically optimized Cardiology following, all recs appreciated Encephalopathy 2/2 cardiac arrest Patient is s/p targeted temperature management, neuro status has improved since Neurological status waxes and wanes, is more awake and alert today Continue speech therapy/PT/OT Continue seizure pxns and depakote Will need outpatient [facility] facility However, patient's medicaid is making placement difficult Will continue to f/u with S/p severe sepsis 2/2 aspiration PNA Resolved s/p treatment with zosyn, doxycycline Continue to monitor for s/sx of infection ID following, all recs appreciated Acute Hep B Infection Patient confirmed to have HbcAb, HbsAg, and HbeAg positive Outpatient treatment when patient is discharged from [facility] IVDA Patient tested positive for opioids and cannabis on admission Continue to advise for cessation DVT/GI PPX: Lovenox/pepcid Full Code Dysphagia/modified diet Monitor on telemetry Patient seen, examined with, and plan discussed with my attending Dr. Elayne Garibay D.O. IM Resident PGY-1 Pager: [phone] <AaronCarmela R - Last Filed: 08/02/18 11:14> Objective - Vital Signs/Intake and Output Vital Signs (last 24 hours): Temp Pulse Resp BP Pulse Ox 98.1 F 65 20 100/58 L 99 08/02/18 08:12 08/02/18 09:33 08/02/18 08:12 08/02/18 09:33 08/02/18 08:12 Intake and Output: 08/02/18 08/02/18 06:59 18:59 Intake Total 1680 Output Total 800 Balance 880 - Medications Medications: Current Medications Amiodarone HCl (Cordarone) 200 mg PO Q12H [facility] Last Admin: 08/02/18 05:31 Dose: 200 mg Artificial Tears (Puralube Opht Oint) 1 appl OU Q4H PRN PRN Reason: Dry eyes Artificial Tears (Refresh Opth Soln) 0.3 ml OU Q4H PRN PRN Reason: Dry eyes Carvedilol (Coreg) 6.25 mg PO BID [facility] Last Admin: 08/02/18 09:32 Dose: Not Given Enoxaparin Sodium (Lovenox) 40 mg SC DAILY [facility]; Protocol Last Admin: 08/02/18 09:33 Dose: 40 mg Famotidine (Pepcid) 20 mg PO HS [facility] Last Admin: 08/01/18 22:00 Dose: 20 mg Lisinopril (Zestril) 5 mg PO DAILY [facility] Last Admin: 08/02/18 09:33 Dose: Not Given Valproate Sodium (Depakene Oral Soln) 1,000 mg PO Q12 [facility] Last Admin: 08/02/18 09:32 Dose: 1,000 mg - Labs Labs: 08/02/18 06:00 08/02/18 06:00 Attending/Attestation - Attestation I have personally seen and examined this patient.: Yes I have fully participated in the care of the patient.: Yes I have reviewed all pertinent clinical information, including history, physical exam and plan: Yes Notes (Text): Patient seen and examined by me with resident at approximately 10:10AM on 08/01/18. Case including HPI, physical exam, and assessment and plan discussed with resident. Agree with above with following additions/corrections. Patient is a 48 year old male with unknown past medical history that presented to the emergency room s/p cardiac arrest and ventricular fibrillation on 07/08/18. Patient was transferred to [facility] on 07/28/18 for AICD placement. Patient returned to [facility] on 07/29/18 s/p AICD placement. Patient awake and alert. Answering some questions. Patient nods "yes" or "no" for most questions. Still with some aphasia. On Avasys secondary to fall. Patient asking to go home. Discussed need for rehab. Patient understands. Denies pain. No nausea or vomiting. No abdominal pain. No chest pain or shortness of breath. No headaches or dizziness. No fevers or chills. Physical exam: General: Awake and alert lying in bed in no acute distress HEENT: Normocephalic, atraumatic. Extraocular muscles intact. Pupils equal and reactive, no scleral icterus. Oropharynx is pink. Neck is supple. Cardiovascular: Normal rhythm. Normal S1 and S2. No murmurs, rubs, or gallops appreciated Pulmonary: Normal respiratory effort. No rhonchi, rales, or wheezing appreciated Gastrointestinal: Soft, nondistended. Nontender. Positive bowel sounds all 4 quadrants. No guarding. Musculoskeletal: Moves all extremities. No calf tenderness. No edema appreciated. Central nervous system: Awake and alert. Following commands. Speech improved. Dermatologic: Skin warm and dry. Assessment and plan: Patient is a 48 year old male with unknown past medical history that presented to the emergency room s/p cardiac arrest and ventricular fibrillation on 07/08/18. Patient was transferred to [facility] on 07/28/18 for AICD placement. Patient returned to [facility] on 07/29/18 s/p AICD placement. 1. S/P V-fib arrest. NSTEMI. Nonischemic dilated cardiomyopathy. S/P AICD placement. Continue amiodarone, dose changed to 200mg PO q12 per cardiology. Continue Lisinopril and Coreg. No ASA per community affairs manager. Cardiology recommendations appreciated. 2. S/P acute anoxic encephalopathy. Speech and swallow following. Aphasia improving. Patient tolerating diet. Continue seizure precautions. Continue Depakote for seizure prophylaxis. Continue supportive care. Continue PT. Pending ARGENIS placement 3. Fall. Placed on Avasys. Continue fall precautions. Continue PT. ARGENIS pending. Pelvic xray per radiologist showed negative study. 4. Hepatitis B infection. Patient will need to follow up outpatient with [facility] for further work up and treatment. 5. Drug abuse. Urine drug screen at initial admission positive for opioids and cannabinoids. Patient counseled on cessation. 6. GI/DVT prophylaxis. Pepcid/Lovenox. 7. Dipso. Awaiting ARGENIS. Case was discussed in detail with the patient regarding current diagnosis, study results, and treatment plan.
[2018-08-02 07:35] LABS: BASO # 0.03 K/mm3 (0.0-2.0); BASO % 0.4 % (0.0-3.0); EOS # 0.2 (0.0-0.7); HEMOGLOBIN 11.4 g/dL (14.0-18.0); LYMPH # 1.6 (1.2-3.4); LYMPH % 22.6 % (22.0-35.0); MEAN CELL VOLUME 96.5 fl (80.0-105.0); MEAN CORPUSCULAR HGB CONC 32.1 g/dl (31.0-37.0); MEAN PLATELET VOLUME 10.8 fl (7.0-11.0); MONO # 0.7 (0.1-0.6); RBC 3.68 10^6/uL (3.5-6.1); RED CELL DISTRIBUTION WIDTH 12.8 % (11.5-14.5)
[2018-08-02 07:50] LABS: ALB/GLOB RATIO 1.1 (1.1-1.8); ALBUMIN 3.4 g/dL (3.0-4.8); ALT/SGPT 32 U/L (7-56); AST/SGOT 42 U/L (17-59); BLOOD UREA NITROGEN 25 mg/dL (7-21); CALCIUM 8.7 mg/dL (8.4-10.5); GFR NON-AFRICAN AMERICAN > 60
[2018-08-02] MEDS: Valproic Acid 250 mg/5 ml UD Cup PO SCH ×2 (09:32→22:25)
[2018-08-02] MEDS: Enoxaparin 40 mg Syringe SC SCH (09:33)
--- NOTE | 2018-08-02 12:02 | CP.PCM.PN ---
<Parrish Garibay - Last Filed: 08/02/18 11:58> Subjective - Date & Time of Evaluation Date of Evaluation: 08/02/18 Time of Evaluation: 08:00 - Subjective Subjective: Parrish Garibay DO, PGY-1 Hospitalist Progress Note for Dr. Elayne Walker Patient was seen and examined at bedside this AM. He is more awake and alert than on previous exams and speech is more coherent. He is requesting to go home. Objective - Vital Signs/Intake and Output Vital Signs (last 24 hours): Temp Pulse Resp BP Pulse Ox 98.1 F 65 20 100/58 L 99 08/02/18 08:12 08/02/18 09:33 08/02/18 08:12 08/02/18 09:33 08/02/18 08:12 Intake and Output: 08/02/18 08/02/18 06:59 18:59 Intake Total 1680 Output Total 800 Balance 880 - Medications Medications: Current Medications Amiodarone HCl (Cordarone) 200 mg PO Q12H [facility] Last Admin: 08/02/18 05:31 Dose: 200 mg Artificial Tears (Puralube Opht Oint) 1 appl OU Q4H PRN PRN Reason: Dry eyes Artificial Tears (Refresh Opth Soln) 0.3 ml OU Q4H PRN PRN Reason: Dry eyes Carvedilol (Coreg) 6.25 mg PO BID [facility] Last Admin: 08/02/18 09:32 Dose: Not Given Enoxaparin Sodium (Lovenox) 40 mg SC DAILY [facility]; Protocol Last Admin: 08/02/18 09:33 Dose: 40 mg Famotidine (Pepcid) 20 mg PO HS [facility] Last Admin: 08/01/18 22:00 Dose: 20 mg Lisinopril (Zestril) 5 mg PO DAILY [facility] Last Admin: 08/02/18 09:33 Dose: Not Given Valproate Sodium (Depakene Oral Soln) 1,000 mg PO Q12 [facility] Last Admin: 08/02/18 09:32 Dose: 1,000 mg - Labs Labs: 08/02/18 06:00 08/02/18 06:00 - Constitutional Appears: Non-toxic, No Acute Distress - Head Exam Head Exam: ATRAUMATIC, NORMOCEPHALIC - Eye Exam Eye Exam: EOMI, PERRL - ENT Exam ENT Exam: Mucous Membranes Moist - Neck Exam Neck Exam: Full ROM, Normal Inspection - Respiratory Exam Respiratory Exam: Clear to Ausculation Bilateral. absent: Accessory Muscle Use, Decreased Breath Sounds, Rales, Rhonchi, Wheezes, Respiratory Distress - Cardiovascular Exam Cardiovascular Exam: REGULAR RHYTHM, RRR, +S1, +S2. absent: Gallop, Rubs, Murmur Additional comments: L sided scar s/p AICD placement clean, dry, intact, healing as expected - GI/Abdominal Exam GI & Abdominal Exam: Soft, Normal Bowel Sounds. absent: Tenderness - Extremities Exam Extremities Exam: Full ROM. absent: Tenderness - Back Exam Back Exam: Full ROM, NORMAL INSPECTION - Neurological Exam Neurological Exam: Alert, Oriented x3 Neuro motor strength exam: Left Upper Extremity: 5, Right Upper Extremity: 5, Left Lower Extremity: 5, Right Lower Extremity: 5 - Psychiatric Exam Psychiatric exam: Normal Affect, Normal Mood - Skin Skin Exam: Dry, Intact, Warm Assessment and Plan - Assessment and Plan (Free Text) Assessment: 48 yo M with no known PMH who presented s/p VFib arrest (25 minutes of CPR) with subsequent targeted temperature management. He continued to improve s/p targeted temperature management and was subsequently extubated and transferred out of MICU. His course is complicated by severe LV systolic dysfunction and was first started on dobutamine in MICU, was maintained on amiodarone, coreg, and is now s/p AICD placement POD 4. Plan: S/p VFib Arrest/NSTEMI with dilated cardiomyopathy May have had underlying cardiomyopathy but likely 2/2 VFib arrest event Patient is now s/p AICD placement POD 4 Continue lisinopril, coreg, no ASA per cardiology recs Dose of amiodarone decreased to 200 mg BID Cardiology following, all recs appreciated Encephalopathy 2/2 cardiac arrest Patient is s/p targeted temperature management, neuro status has improved since Neurological status is improved overall, speaking more coherently today than on any prior exam Informed patient that he is not safe to go home yet, given gait instability Pending ARGENIS placement, likely Saturday Continue avasys (continuous video monitoring) Will continue to f/u with Acute Hep B Infection Patient confirmed to have HbcAb, HbsAg, and HbeAg positive Outpatient treatment when patient is discharged from [facility] Patient tested positive for opioids and cannabis on admission Continue to advise for cessation DVT/GI PPX: Lovenox/pepcid Full Code Dysphagia/modified diet Monitor on med/surg Patient seen, examined with, and plan discussed with my attending Dr. Elayne Garibay D.O. IM Resident PGY-1 Pager: [phone] <Carmela Walker R - Last Filed: 08/02/18 13:24> Objective - Vital Signs/Intake and Output Vital Signs (last 24 hours): Temp Pulse Resp BP Pulse Ox 98.1 F 65 20 100/58 L 99 08/02/18 08:12 08/02/18 09:33 08/02/18 08:12 08/02/18 09:33 08/02/18 08:12 Intake and Output: 08/02/18 08/02/18 06:59 18:59 Intake Total 1680 420 Output Total 800 Balance 880 420 - Medications Medications: Current Medications Amiodarone HCl (Cordarone) 200 mg PO Q12H [facility] Last Admin: 08/02/18 05:31 Dose: 200 mg Artificial Tears (Puralube Opht Oint) 1 appl OU Q4H PRN PRN Reason: Dry eyes Artificial Tears (Refresh Opth Soln) 0.3 ml OU Q4H PRN PRN Reason: Dry eyes Carvedilol (Coreg) 6.25 mg PO BID [facility] Last Admin: 08/02/18 09:32 Dose: Not Given Enoxaparin Sodium (Lovenox) 40 mg SC DAILY [facility]; Protocol Last Admin: 08/02/18 09:33 Dose: 40 mg Famotidine (Pepcid) 20 mg PO HS [facility] Last Admin: 08/01/18 22:00 Dose: 20 mg Lisinopril (Zestril) 5 mg PO DAILY [facility] Last Admin: 08/02/18 09:33 Dose: Not Given Valproate Sodium (Depakene Oral Soln) 1,000 mg PO Q12 [facility] Last Admin: 08/02/18 09:32 Dose: 1,000 mg - Labs Labs: 08/02/18 06:00 08/02/18 06:00 Attending/Attestation - Attestation I have personally seen and examined this patient.: Yes I have fully participated in the care of the patient.: Yes I have reviewed all pertinent clinical information, including history, physical exam and plan: Yes Notes (Text): Patient seen and examined by me with resident at approximately 8:50AM on 08/02/18. Case including HPI, physical exam, and assessment and plan discussed with resident. Agree with above with following additions/corrections. Patient is a 48 year old male with unknown past medical history that presented to the emergency room s/p cardiac arrest and ventricular fibrillation on 07/08/18. Patient was transferred to [facility] on 07/28/18 for AICD placement. Patient returned to [facility] on 07/29/18 s/p AICD placement. Patient states he is feeling ok. States he wants to go home. Understands he need s rehab. States he lives in [place] with his girlfriend. Patient is eating breakfast. Denies pain. No nausea or vomiting. No abdominal pain. No chest pain or shortness of breath. No headaches or dizziness. No fevers or chills. No dysuria. Physical exam: General: Awake and alert lying in bed in no acute distress HEENT: Normocephalic, atraumatic. Extraocular muscles intact. Pupils equal and reactive, no scleral icterus. Oropharynx is pink. Neck is supple. Cardiovascular: Normal rhythm. Normal S1 and S2. No murmurs, rubs, or gallops appreciated Pulmonary: Normal respiratory effort. No rhonchi, rales, or wheezing appreciated Gastrointestinal: Soft, nondistended. Nontender. Positive bowel sounds all 4 quadrants. No guarding. Musculoskeletal: Moves all extremities. No calf tenderness. No edema appreciated. Central nervous system: Awake and alert. Following commands. Speech improved. Dermatologic: Skin warm and dry. Assessment and plan: Patient is a 48 year old male with unknown past medical history that presented to the emergency room s/p cardiac arrest and ventricular fibrillation on 07/08/18. Patient was transferred to [facility] on 07/28/18 for AICD placement. Patient returned to [facility] on 07/29/18 s/p AICD placement. 1. S/P V-fib arrest. NSTEMI. Nonischemic dilated cardiomyopathy. S/P AICD placement. Continue amiodarone 200mg PO q12 per cardiology. Continue Lisinopril and Coreg. No ASA per facilities painter. Cardiology recommendations appreciated. 2. S/P acute anoxic encephalopathy.Aphasia improving. Continue seizure precautions. Continue Depakote for seizure prophylaxis. Patient tolerating diet. Continue supportive care. Speech and swallow following. Continue PT. Pending ARGENIS placement 3. Fall. Continue Avasys. Continue fall precautions. Continue PT. ARGENIS pending. Pelvic xray per radiologist showed negative study. 4. Hepatitis B infection. Patient will need to follow up outpatient with [facility] for further work up and treatment. 5. Drug abuse. Urine drug screen at initial admission positive for opioids and cannabinoids. Patient counseled on cessation. 6. GI/DVT prophylaxis. Pepcid/Lovenox. 7. Dipso. Awaiting ARGENIS. Case was discussed in detail with the patient regarding current diagnosis, study results, and treatment plan.
[2018-08-03 07:37] LABS: BASO # 0.02 K/mm3 (0.0-2.0); BASO % 0.3 % (0.0-3.0); EOS # 0.3 (0.0-0.7); EOS % 4.9 % (1.5-5.0); HEMOGLOBIN 11.1 g/dL (14.0-18.0); LYMPH # 1.6 (1.2-3.4); LYMPH % 23.4 % (22.0-35.0); MEAN CELL VOLUME 95.5 fl (80.0-105.0); MEAN CORPUSCULAR HEMOGLOBIN 31.4 pg (25.0-35.0); MEAN CORPUSCULAR HGB CONC 32.8 g/dl (31.0-37.0); MEAN PLATELET VOLUME 10.5 fl (7.0-11.0); MONO % 14.2 % (1.0-6.0); RBC 3.54 10^6/uL (3.5-6.1); RED CELL DISTRIBUTION WIDTH 12.7 % (11.5-14.5); WHITE BLOOD COUNT 6.9 10^3/uL (4.5-11.0)
[2018-08-03 08:05] LABS: ALBUMIN 3.3 g/dL (3.0-4.8); ALT/SGPT 30 U/L (7-56); AST/SGOT 65 U/L (17-59); BLOOD UREA NITROGEN 19 mg/dL (7-21); CALCIUM 8.7 mg/dL (8.4-10.5); GFR NON-AFRICAN AMERICAN > 60
[2018-08-03] MEDS: Enoxaparin 40 mg Syringe SC SCH (09:34)
[2018-08-03] MEDS: Valproic Acid 250 mg/5 ml UD Cup PO SCH ×2 (09:34→22:43)
--- NOTE | 2018-08-03 14:09 | CP.PCM.PN ---
<Parrish Garibay - Last Filed: 08/03/18 14:05> Subjective - Date & Time of Evaluation Date of Evaluation: 08/03/18 Time of Evaluation: 09:30 - Subjective Subjective: Parrish Garibay DO, PGY-1 Hospitalist Progress Note for Dr. Elayne Walker Patient was seen and examined at bedside this AM. He continues to be more awake and alert, requesting to go home. He is pending ARGENIS, with hopeful placement tomorrow. Objective - Vital Signs/Intake and Output Vital Signs (last 24 hours): Temp Pulse Resp BP Pulse Ox 97.9 F 78 20 109/73 98 08/03/18 06:00 08/03/18 09:36 08/03/18 06:00 08/03/18 09:36 08/03/18 06:00 Intake and Output: 08/03/18 08/03/18 06:59 18:59 Intake Total 1410 Balance 1410 - Medications Medications: Current Medications Amiodarone HCl (Cordarone) 200 mg PO Q12H [facility] Last Admin: 08/03/18 06:38 Dose: 200 mg Artificial Tears (Puralube Opht Oint) 1 appl OU Q4H PRN PRN Reason: Dry eyes Artificial Tears (Refresh Opth Soln) 0.3 ml OU Q4H PRN PRN Reason: Dry eyes Carvedilol (Coreg) 6.25 mg PO BID [facility] Last Admin: 08/03/18 09:36 Dose: 6.25 mg Enoxaparin Sodium (Lovenox) 40 mg SC DAILY [facility]; Protocol Last Admin: 08/03/18 09:34 Dose: 40 mg Famotidine (Pepcid) 20 mg PO HS [facility] Last Admin: 08/02/18 22:25 Dose: 20 mg Lisinopril (Zestril) 5 mg PO DAILY [facility] Last Admin: 08/03/18 09:36 Dose: 5 mg Valproate Sodium (Depakene Oral Soln) 1,000 mg PO Q12 [facility] Last Admin: 08/03/18 09:34 Dose: 1,000 mg - Labs Labs: 08/03/18 07:00 08/03/18 07:00 - Constitutional Appears: Non-toxic, No Acute Distress - Head Exam Head Exam: ATRAUMATIC, NORMOCEPHALIC - Eye Exam Eye Exam: EOMI, PERRL - ENT Exam ENT Exam: Mucous Membranes Moist - Neck Exam Neck Exam: Full ROM. absent: Lymphadenopathy, Thyromegaly - Respiratory Exam Respiratory Exam: Clear to Ausculation Bilateral, NORMAL BREATHING PATTERN. absent: Rales, Rhonchi, Wheezes - Cardiovascular Exam Cardiovascular Exam: REGULAR RHYTHM, RRR, +S1, +S2. absent: Gallop, Rubs, Murmur Additional comments: L sided scar s/p AICD placement clean, dry, intact, healing as expected - GI/Abdominal Exam GI & Abdominal Exam: Soft, Normal Bowel Sounds. absent: Guarding, Tenderness - Extremities Exam Extremities Exam: Full ROM. absent: Pedal Edema - Back Exam Back Exam: NORMAL INSPECTION - Neurological Exam Neurological Exam: Alert, Awake, Oriented x3 - Psychiatric Exam Psychiatric exam: Normal Affect, Normal Mood - Skin Skin Exam: Dry, Intact, Warm Assessment and Plan - Assessment and Plan (Free Text) Assessment: 48 yo M with no known PMH who presented s/p VFib arrest (25 minutes of CPR) with subsequent targeted temperature management. He continued to improve s/p targeted temperature management and was subsequently extubated and transferred out of MICU. His course is complicated by severe LV systolic dysfunction and was first started on dobutamine in MICU, was maintained on amiodarone, coreg, and is now s/p AICD placement POD 5. Plan: S/p VFib Arrest/NSTEMI with dilated cardiomyopathy May have had underlying cardiomyopathy but likely 2/2 VFib arrest event Patient is now s/p AICD placement POD 5 Continue lisinopril, coreg, amiodarone (dose decreased to 200 mg BID) per cardiology recs Patient is pending [facility] placement, f/u with SW tomorrow with hopeful placement tomorrow Cardiology following, all recs appreciated Encephalopathy 2/2 cardiac arrest Patient is s/p targeted temperature management, neuro status has improved since Neurological status continues to improve, now speaking coherently and requesting to go home Again, informed patient that he is not a safe discharge yet given gait in stability Patient is agreeable to go to [facility] F/u with SW, hopeful transfer to [facility] tomorrow Continue avasys (continuous video monitoring) Acute Hep B Infection Patient confirmed to have HbcAb, HbsAg, and HbeAg positive Outpatient treatment when patient is discharged from [facility] Patient tested positive for opioids and cannabis on admission Continue to advise for cessation DVT/GI PPX: Lovenox/pepcid Full Code Dysphagia/modified diet Monitor on med/surg Patient seen, examined with, and plan discussed with my attending Dr. Elayne Garibay D.O. IM Resident PGY-1 Pager: [phone] <Carmela Walker R - Last Filed: 08/03/18 16:07> Objective - Vital Signs/Intake and Output Vital Signs (last 24 hours): Temp Pulse Resp BP Pulse Ox 97.9 F 78 20 109/73 98 08/03/18 06:00 08/03/18 09:36 08/03/18 06:00 08/03/18 09:36 08/03/18 06:00 Intake and Output: 08/03/18 08/03/18 06:59 18:59 Intake Total 1410 420 Output Total 500 Balance 1410 -80 - Medications Medications: Current Medications Amiodarone HCl (Cordarone) 200 mg PO Q12H [facility] Last Admin: 08/03/18 06:38 Dose: 200 mg Artificial Tears (Puralube Opht Oint) 1 appl OU Q4H PRN PRN Reason: Dry eyes Artificial Tears (Refresh Opth Soln) 0.3 ml OU Q4H PRN PRN Reason: Dry eyes Carvedilol (Coreg) 6.25 mg PO BID [facility] Last Admin: 08/03/18 09:36 Dose: 6.25 mg Enoxaparin Sodium (Lovenox) 40 mg SC DAILY [facility]; Protocol Last Admin: 08/03/18 09:34 Dose: 40 mg Famotidine (Pepcid) 20 mg PO HS [facility] Last Admin: 08/02/18 22:25 Dose: 20 mg Lisinopril (Zestril) 5 mg PO DAILY [facility] Last Admin: 08/03/18 09:36 Dose: 5 mg Valproate Sodium (Depakene Oral Soln) 1,000 mg PO Q12 [facility] Last Admin: 08/03/18 09:34 Dose: 1,000 mg - Labs Labs: 08/03/18 07:00 08/03/18 07:00 Attending/Attestation - Attestation I have personally seen and examined this patient.: Yes I have fully participated in the care of the patient.: Yes I have reviewed all pertinent clinical information, including history, physical exam and plan: Yes Notes (Text): Patient seen and examined by me with resident at approximately 9AM on 08/03/18. Case including HPI, physical exam, and assessment and plan discussed with resident. Agree with above with following additions/corrections. Patient is a 48 year old male with unknown past medical history that presented to the emergency room s/p cardiac arrest and ventricular fibrillation on 07/08/18. Patient was transferred to [facility] on 07/28/18 for AICD placement. Patient returned to [facility] on 07/29/18 s/p AICD placement. Patient states he feels ok. Patient feels hungry and wants to eat breakfast. Pat ient denies any chest pain or shortness of breath. No headaches or dizziness. No fevers or chills. No nausea, vomiting, or abdominal pain. No dysuria. Patient eating well. Patient had bowel movement yesterday. Physical exam: General: Awake and alert lying in bed in no acute distress HEENT: Normocephalic, atraumatic. Extraocular muscles intact. Pupils equal and reactive, no scleral icterus. Oropharynx is pink. Neck is supple. Cardiovascular: Normal rhythm. Normal S1 and S2. No murmurs, rubs, or gallops appreciated Pulmonary: Normal respiratory effort. No rhonchi, rales, or wheezing appreciated Gastrointestinal: Soft, nondistended. Nontender. Positive bowel sounds all 4 quadrants. No guarding. Musculoskeletal: Moves all extremities. No calf tenderness. No edema appreciated. Central nervous system: Awake and alert. Following commands. Speech improved. Dermatologic: Skin warm and dry. Assessment and plan: Patient is a 48 year old male with unknown past medical history that presented to the emergency room s/p cardiac arrest and ventricular fibrillation on 07/08/18. Patient was transferred to [facility] on 07/28/18 for AICD placement. Patient returned to [facility] on 07/29/18 s/p AICD placement. 1. S/P V-fib arrest. NSTEMI. Nonischemic dilated cardiomyopathy. S/P AICD placement. Continue amiodarone 200mg PO q12. Continue Lisinopril and Coreg. No ASA per director of acquisition marketing. Cardiology recommendations appreciated. Pending ARGENIS placement. 2. S/P acute anoxic encephalopathy. Aphasia improving. Continue Depakote for seizure prophylaxis. Continue supportive care. Speech and swallow following. Continue PT. Pending ARGENIS placement 3. Fall. Continue Avasys. Continue fall precautions. Continue PT. ARGENIS pending. Pelvic xray per radiologist showed negative study. 4. Hepatitis B infection. Patient will need to follow up outpatient with [facility] for further work up and treatment. 5. Drug abuse. Urine drug screen at initial admission positive for opioids and cannabinoids. Patient counseled on cessation. 6. GI/DVT prophylaxis. Pepcid/Lovenox. 7. Dipso. Awaiting ARGENIS. Case was discussed in detail with the patient regarding current diagnosis, study results, and treatment plan.
[2018-08-04 07:27] LABS: BASO # 0.03 K/mm3 (0.0-2.0); BASO % 0.5 % (0.0-3.0); EOS # 0.4 (0.0-0.7); EOS % 5.7 % (1.5-5.0); HEMOGLOBIN 11.3 g/dL (14.0-18.0); LYMPH # 1.8 (1.2-3.4); LYMPH % 28.8 % (22.0-35.0); MEAN CORPUSCULAR HEMOGLOBIN 31.3 pg (25.0-35.0); MEAN CORPUSCULAR HGB CONC 32.3 g/dl (31.0-37.0); MEAN PLATELET VOLUME 10.6 fl (7.0-11.0); MONO # 0.7 (0.1-0.6); MONO % 11.4 % (1.0-6.0); RBC 3.61 10^6/uL (3.5-6.1); RED CELL DISTRIBUTION WIDTH 12.8 % (11.5-14.5); WHITE BLOOD COUNT 6.3 10^3/uL (4.5-11.0)
[2018-08-04 07:48] LABS: ALB/GLOB RATIO 1.1 (1.1-1.8); ALBUMIN 3.3 g/dL (3.0-4.8); ALT/SGPT 27 U/L (7-56); AST/SGOT 42 U/L (17-59); BLOOD UREA NITROGEN 19 mg/dL (7-21); CALCIUM 8.7 mg/dL (8.4-10.5); GFR NON-AFRICAN AMERICAN > 60
[2018-08-04] MEDS: Valproic Acid 250 mg/5 ml UD Cup PO SCH ×2 (10:41→21:30)
[2018-08-04] MEDS: Enoxaparin 40 mg Syringe SC SCH (10:42)
--- NOTE | 2018-08-04 15:18 | CP.PCM.PN ---
<Parrish Garibay - Last Filed: 08/04/18 15:12> Subjective - Date & Time of Evaluation Date of Evaluation: 08/04/18 Time of Evaluation: 09:00 - Subjective Subjective: Parrish Garibay DO, PGY-1 Hospitalist Progress Note for Dr. Garcia Patient was seen and examined at bedside this AM. He is awake and alert, requesting to go home again. Objective - Vital Signs/Intake and Output Vital Signs (last 24 hours): Temp Pulse Resp BP Pulse Ox 97.9 F 69 20 107/62 97 08/04/18 07:53 08/04/18 07:53 08/04/18 07:53 08/04/18 07:53 08/04/18 07:53 - Medications Medications: Current Medications Amiodarone HCl (Cordarone) 200 mg PO Q12H [facility] Last Admin: 08/04/18 06:37 Dose: 200 mg Artificial Tears (Puralube Opht Oint) 1 appl OU Q4H PRN PRN Reason: Dry eyes Artificial Tears (Refresh Opth Soln) 0.3 ml OU Q4H PRN PRN Reason: Dry eyes Carvedilol (Coreg) 6.25 mg PO BID [facility] Last Admin: 08/04/18 10:42 Dose: 6.25 mg Enoxaparin Sodium (Lovenox) 40 mg SC DAILY [facility]; Protocol Last Admin: 08/04/18 10:42 Dose: 40 mg Famotidine (Pepcid) 20 mg PO HS [facility] Last Admin: 08/03/18 22:42 Dose: 20 mg Lisinopril (Zestril) 5 mg PO DAILY [facility] Last Admin: 08/04/18 10:42 Dose: 5 mg Valproate Sodium (Depakene Oral Soln) 1,000 mg PO Q12 [facility] Last Admin: 08/04/18 10:41 Dose: 1,000 mg - Labs Labs: 08/04/18 07:00 08/04/18 07:00 - Constitutional Appears: Non-toxic, No Acute Distress - Head Exam Head Exam: ATRAUMATIC, NORMOCEPHALIC - Eye Exam Eye Exam: EOMI, PERRL - ENT Exam ENT Exam: Mucous Membranes Moist - Neck Exam Neck Exam: Full ROM. absent: Lymphadenopathy, Thyromegaly - Respiratory Exam Respiratory Exam: Clear to Ausculation Bilateral, NORMAL BREATHING PATTERN. absent: Accessory Muscle Use, Rales, Rhonchi, Wheezes, Respiratory Distress - Cardiovascular Exam Cardiovascular Exam: REGULAR RHYTHM, RRR, +S1, +S2. absent: Gallop, Rubs, Murmur Additional comments: L sided scar s/p AICD placement clean, dry, intact, healing as expected - GI/Abdominal Exam GI & Abdominal Exam: Soft, Normal Bowel Sounds. absent: Guarding, Tenderness - Extremities Exam Extremities Exam: Full ROM. absent: Pedal Edema - Back Exam Back Exam: NORMAL INSPECTION - Neurological Exam Neurological Exam: Alert, Awake, Oriented x3 - Psychiatric Exam Psychiatric exam: Normal Affect, Normal Mood - Skin Skin Exam: Dry, Intact, Warm Assessment and Plan - Assessment and Plan (Free Text) Assessment: 48 yo M with no known PMH who presented s/p VFib arrest (25 minutes of CPR) with subsequent targeted temperature management. He continued to improve s/p targeted temperature management and was subsequently extubated and transferred out of MICU. His course is complicated by severe LV systolic dysfunction and was first started on dobutamine in MICU, was maintained on amiodarone, coreg, and is now s/p AICD placement POD 6. Plan: S/p VFib Arrest/NSTEMI with dilated cardiomyopathy May have had underlying cardiomyopathy but likely 2/2 VFib arrest event Patient is now s/p AICD placement POD 6 Continue lisinopril, coreg, amiodarone (dose decreased to 200 mg BID) per cardiology recs Case discussed with SW again today Patient's insurance makes finding [facility] facility difficult, requiring multiple auths Continue to f/u with SW Continue PT/OT Cardiology following, all recs appreciated Encephalopathy 2/2 cardiac arrest Patient is s/p targeted temperature management, neuro status has been gradually improving since Patient did have fall x 1, xrays completed were negative Patient verbalized understanding of need for him to recover in [facility] facility Case discussed with SW as above Continue avasys (continuous video monitoring) Acute Hep B Infection Patient confirmed to have HbcAb, HbsAg, and HbeAg positive Outpatient treatment when patient is discharged from [facility] Patient tested positive for opioids and cannabis on admission Continue to advise for cessation DVT/GI PPX: Lovenox/pepcid Full Code Dysphagia/modified diet Monitor on med/surg Patient seen, examined with, and plan discussed with my attending Dr. Radha Garibay D.O. IM Resident PGY-1 Pager: [phone] <Brayden Garcia - Last Filed: 08/04/18 17:26> Objective - Vital Signs/Intake and Output Vital Signs (last 24 hours): Temp Pulse Resp BP Pulse Ox 98 F 81 20 105/64 96 08/04/18 16:48 08/04/18 16:48 08/04/18 16:48 08/04/18 16:48 08/04/18 16:48 - Medications Medications: Current Medications Amiodarone HCl (Cordarone) 200 mg PO Q12H [facility] Last Admin: 08/04/18 06:37 Dose: 200 mg Artificial Tears (Puralube Opht Oint) 1 appl OU Q4H PRN PRN Reason: Dry eyes Artificial Tears (Refresh Opth Soln) 0.3 ml OU Q4H PRN PRN Reason: Dry eyes Carvedilol (Coreg) 6.25 mg PO BID [facility] Last Admin: 08/04/18 10:42 Dose: 6.25 mg Enoxaparin Sodium (Lovenox) 40 mg SC DAILY [facility]; Protocol Last Admin: 08/04/18 10:42 Dose: 40 mg Famotidine (Pepcid) 20 mg PO HS [facility] Last Admin: 08/03/18 22:42 Dose: 20 mg Lisinopril (Zestril) 5 mg PO DAILY [facility] Last Admin: 08/04/18 10:42 Dose: 5 mg Valproate Sodium (Depakene Oral Soln) 1,000 mg PO Q12 [facility] Last Admin: 08/04/18 10:41 Dose: 1,000 mg - Labs Labs: 08/04/18 07:00 08/04/18 07:00 Attending/Attestation - Attestation I have personally seen and examined this patient.: Yes I have fully participated in the care of the patient.: Yes I have reviewed all pertinent clinical information, including history, physical exam and plan: Yes Notes (Text): 08/04/18 17:21 Attending note; Patient seen and examined with resident. Patient is alert and awake. Able to move all extremities. Not in any acute distress Tolerating diet well. Patient is a 48 year old male with unknown past medical history that presented to the emergency room s/p cardiac arrest and ventricular fibrillation on 07/08/18. Patient was transferred to [facility] on 07/28/18 for AICD placement. Patient returned to [facility] on 07/29/18 s/p AICD placement. 1. S/P V-fib arrest. NSTEMI. Nonischemic dilated cardiomyopathy. S/P AICD placement. Continue amiodarone, Lisinopril and Coreg. Cardiology recommendations appreciated. Pending [facility] placement. 2. S/P acute anoxic encephalopathy post cardiac arrest. Improving. Aphasia improving. Continue Depakote for seizure prophylaxis. Continue supportive care. 3. Fall. Continue Avasys. Continue fall precautions. Continue PT. Pelvic xray t showed negative study. 4. Hepatitis B infection. Patient will need to follow up outpatient with [facility] for further work up and treatment. 5. Drug abuse. Urine drug screen at initial admission positive for opioids and cannabinoids. Patient counseled on cessation. 6. GI/DVT prophylaxis. Pepcid/Lovenox. We will follow-up with social media marketing specialist and case folder. Pending [facility] placement.
--- NOTE | 2018-08-04 20:00 | PN ---
DATE: 08/04/2018 SUBJECTIVE: The patient remains free of distress. PHYSICAL EXAMINATION: VITAL SIGNS: Blood pressure is 107/62 and the heart rate is in the 60s. NECK: Negative JVD. LUNGS: Without rales. HEART: S1 and S2. EXTREMITIES: Without edema. LABORATORY DATA: Hemoglobin is 11.3. Chemistries, BUN and creatinine unremarkable. IMPRESSION: 1. Status post ventricular fibrillation arrest. 2. Dilated cardiomyopathy. 3. Status post implantable cardioverter defibrillator placement. 4. Anoxic encephalopathy. PLAN: Given these findings, the patient has had no recurrence of his V-fib. He is currently protected with amiodarone as well as an ICD placement. We are awaiting placement to a [place] [facility] facility. Kelby Guerrero MD
[2018-08-05] MEDS: Valproic Acid 250 mg/5 ml UD Cup PO SCH ×2 (10:39→21:47)
[2018-08-05] MEDS: Enoxaparin 40 mg Syringe SC SCH (10:39)
--- NOTE | 2018-08-05 13:19 | CP.PCM.PN ---
<Parrish Gariaby - Last Filed: 08/05/18 13:14> Subjective - Date & Time of Evaluation Date of Evaluation: 08/05/18 Time of Evaluation: 10:00 - Subjective Subjective: Parrish Garibay DO, PGY-1 Hospitalist Progress Note for Dr. Garcia Patient was seen and examined at bedside this AM. He has no new complaints this AM, remains awake, and alert. He is continuing to work with PT daily. Objective - Vital Signs/Intake and Output Vital Signs (last 24 hours): Temp Pulse Resp BP Pulse Ox 97.3 F L 62 18 99/66 L 99 08/05/18 08:33 08/05/18 10:40 08/05/18 08:33 08/05/18 10:40 08/05/18 08:33 Intake and Output: 08/05/18 08/05/18 06:59 18:59 Intake Total 240 Output Total 400 Balance -160 - Medications Medications: Current Medications Amiodarone HCl (Cordarone) 200 mg PO Q12H [facility] Last Admin: 08/05/18 06:13 Dose: 200 mg Artificial Tears (Puralube Opht Oint) 1 appl OU Q4H PRN PRN Reason: Dry eyes Artificial Tears (Refresh Opth Soln) 0.3 ml OU Q4H PRN PRN Reason: Dry eyes Last Admin: 08/05/18 10:39 Dose: 1 drop Carvedilol (Coreg) 6.25 mg PO BID [facility] Last Admin: 08/05/18 10:40 Dose: Not Given Enoxaparin Sodium (Lovenox) 40 mg SC DAILY [facility]; Protocol Last Admin: 08/05/18 10:39 Dose: 40 mg Famotidine (Pepcid) 20 mg PO HS [facility] Last Admin: 08/04/18 21:30 Dose: 20 mg Lisinopril (Zestril) 2.5 mg PO DAILY [facility] Valproate Sodium (Depakene Oral Soln) 1,000 mg PO Q12 [facility] Last Admin: 08/05/18 10:39 Dose: 1,000 mg - Labs Labs: 08/04/18 07:00 08/04/18 07:00 - Constitutional Appears: Non-toxic, No Acute Distress - Head Exam Head Exam: ATRAUMATIC, NORMOCEPHALIC - Eye Exam Eye Exam: EOMI, PERRL - ENT Exam ENT Exam: Mucous Membranes Moist - Neck Exam Neck Exam: Full ROM. absent: Tenderness, Thyromegaly - Respiratory Exam Respiratory Exam: Clear to Ausculation Bilateral, NORMAL BREATHING PATTERN. absent: Accessory Muscle Use, Rales, Rhonchi, Wheezes, Respiratory Distress - Cardiovascular Exam Cardiovascular Exam: REGULAR RHYTHM, RRR, +S1, +S2. absent: Gallop, Rubs, Murmur Additional comments: L sided scar s/p AICD placement clean, dry, intact, healing as expected - GI/Abdominal Exam GI & Abdominal Exam: Soft, Normal Bowel Sounds. absent: Guarding, Tenderness - Extremities Exam Extremities Exam: Full ROM. absent: Pedal Edema - Back Exam Back Exam: NORMAL INSPECTION - Neurological Exam Neurological Exam: Alert, Awake, Oriented x3 - Psychiatric Exam Psychiatric exam: Normal Affect, Normal Mood - Skin Skin Exam: Dry, Intact, Warm Assessment and Plan - Assessment and Plan (Free Text) Assessment: 48 yo M with no known PMH who presented s/p VFib arrest (25 minutes of CPR) with subsequent targeted temperature management. He continued to improve s/p targeted temperature management and was subsequently extubated and transferred out of MICU. His course is complicated by severe LV systolic dysfunction and was first started on dobutamine in MICU, was maintained on amiodarone, coreg, and is now s/p AICD placement POD 7. He is pending [facility] transfer. Because of insurance difficulties, [facility] placement has been difficult. Plan: S/p VFib Arrest/NSTEMI with dilated cardiomyopathy May have had underlying cardiomyopathy but likely 2/2 VFib arrest event Patient is now s/p AICD placement POD 7 Continue lisinopril, coreg, amiodarone Case followed up with SW again today Patient's sister is in contact with [facility] facility for needed paperwork Patient's insurance is making [facility] placement difficult, will continue to f/u with Cardiology following, all recs appreciated Encephalopathy 2/2 cardiac arrest, resolving Patient is s/p targeted temperature management, neuro status has been gradually improving since Patient did have fall x 1 here at [facility] and another fall at [facility] L hip xray completed for fall here as patient complained of L hip pain, xray was negative Continue avasys (continuous video monitoring) Acute Hep B Infection Patient confirmed to have HbcAb, HbsAg, and HbeAg positive Outpatient treatment when patient is discharged from [facility] Patient tested positive for opioids and cannabis on admission Continue to advise for cessation DVT/GI PPX: Lovenox/pepcid Full Code Dysphagia/modified diet Monitor on med/surg Patient seen, examined with, and plan discussed with my attending Keila MaherO. IM Resident PGY-1 Pager: [phone] <Brayden Garcia - Last Filed: 08/06/18 13:47> Objective - Vital Signs/Intake and Output Vital Signs (last 24 hours): Temp Pulse Resp BP Pulse Ox 97.8 F 68 20 84/52 L 98 08/06/18 07:54 08/06/18 11:53 08/06/18 07:54 08/06/18 11:53 08/06/18 07:54 - Medications Medications: Current Medications Amiodarone HCl (Cordarone) 200 mg PO Q12H [facility] Last Admin: 08/06/18 05:56 Dose: Not Given Artificial Tears (Puralube Opht Oint) 1 appl OU Q4H PRN PRN Reason: Dry eyes Artificial Tears (Refresh Opth Soln) 0.3 ml OU Q4H PRN PRN Reason: Dry eyes Last Admin: 08/05/18 10:39 Dose: 1 drop Carvedilol (Coreg) 6.25 mg PO BID [facility] Last Admin: 08/06/18 11:52 Dose: Not Given Enoxaparin Sodium (Lovenox) 40 mg SC DAILY [facility]; Protocol Last Admin: 08/06/18 11:53 Dose: 40 mg Famotidine (Pepcid) 20 mg PO HS [facility] Last Admin: 08/05/18 21:47 Dose: 20 mg Lisinopril (Zestril) 2.5 mg PO DAILY [facility] Last Admin: 08/06/18 11:53 Dose: Not Given Valproate Sodium (Depakene Oral Soln) 1,000 mg PO Q12 [facility] Last Admin: 08/06/18 11:54 Dose: 1,000 mg - Labs Labs: 08/06/18 05:30 08/06/18 05:30 Attending/Attestation - Attestation I have personally seen and examined this patient.: Yes I have fully participated in the care of the patient.: Yes I have reviewed all pertinent clinical information, including history, physical exam and plan: Yes Notes (Text): 08/06/18 13:46 Attending note; Patient seen and examined with resident. Patient is alert and awake. Able to move all extremities. Not in any acute distress Tolerating diet well. Patient is a 48 year old male with unknown past medical history that presented to the emergency room s/p cardiac arrest and ventricular fibrillation on 07/08/18. Patient was transferred to [facility] on 07/28/18 for AICD placement. Patient returned to [facility] on 07/29/18 s/p AICD placement. 1. S/P V-fib arrest. NSTEMI. Nonischemic dilated cardiomyopathy. S/P AICD placement. Continue amiodarone, Lisinopril and Coreg. Cardiology recommendations appreciated. Pending [facility] placement. 2. S/P acute anoxic encephalopathy post cardiac arrest. Improving. Aphasia improving. Continue Depakote for seizure prophylaxis. Continue supportive care. 3. Fall. Continue Avasys. Continue fall precautions. Continue PT. patient with significant improvement in gait and stability. 4. Hepatitis B infection. Patient will need to follow up outpatient with [facility] for further work up and treatment. 5. Drug abuse. Urine drug screen at initial admission positive for opioids and cannabinoids. Patient counseled on cessation. 6. GI/DVT prophylaxis. Pepcid/Lovenox. We will follow-up with social media marketing specialist and telehealth case manager. Pending [facility] placement.
--- NOTE | 2018-08-05 14:12 | PN ---
DATE: 08/05/2018 SUBJECTIVE: The patient is without shortness of breath, without chest pain, still is mildly confused. PHYSICAL EXAMINATION: VITAL SIGNS: Blood pressure 99/66, heart rates in the 60s. NECK: Negative JVD. LUNGS: Without rales. HEART: S1, S2. EXTREMITIES: Without edema. LABORATORY DATA: Hemoglobin is 11.3, BUN and creatinine unremarkable. IMPRESSION: 1. Status post ventricular fibrillation arrest. 2. Dilated cardiomyopathy. 3. Nonischemic cardiomyopathy. 4. Relative hypotension. Given these findings, we will continue the amiodarone, Coreg and we will decrease the lisinopril to two and a half daily. Kelby Guerrero MD
[2018-08-06 06:22] LABS: BASO # 0.03 K/mm3 (0.0-2.0); BASO % 0.4 % (0.0-3.0); EOS # 0.4 (0.0-0.7); EOS % 5.1 % (1.5-5.0); HEMOGLOBIN 11.4 g/dL (14.0-18.0); LYMPH # 2.1 (1.2-3.4); LYMPH % 28.9 % (22.0-35.0); MEAN CELL VOLUME 97.8 fl (80.0-105.0); MEAN CORPUSCULAR HEMOGLOBIN 31.3 pg (25.0-35.0); MEAN PLATELET VOLUME 10.4 fl (7.0-11.0); MONO # 0.8 (0.1-0.6); RBC 3.64 10^6/uL (3.5-6.1); WHITE BLOOD COUNT 7.1 10^3/uL (4.5-11.0)
[2018-08-06 06:40] LABS: BLOOD UREA NITROGEN 22 mg/dL (7-21); CALCIUM 8.9 mg/dL (8.4-10.5); GFR NON-AFRICAN AMERICAN > 60
[2018-08-06] MEDS: Enoxaparin 40 mg Syringe SC SCH (11:53)
[2018-08-06] MEDS: Valproic Acid 250 mg/5 ml UD Cup PO SCH ×2 (11:54→21:52)
--- NOTE | 2018-08-06 13:39 | CP.PCM.PN ---
<Parrish Garibay - Last Filed: 08/06/18 14:57> Subjective - Date & Time of Evaluation Date of Evaluation: 08/06/18 Time of Evaluation: 10:00 - Subjective Subjective: Parrish Garibay DO, PGY-1 Hospitalist Progress Note for Dr. Garcia Patient was seen and examined at bedside this AM. He reports continuing to work with PT and speech is improving everyday. He has no new complaints this AM and denies fever/chills, CP, SOB, abd pain/nausea/vomiting, or urinary complaints. Objective - Vital Signs/Intake and Output Vital Signs (last 24 hours): Temp Pulse Resp BP Pulse Ox 97.8 F 68 20 84/52 L 98 08/06/18 07:54 08/06/18 11:53 08/06/18 07:54 08/06/18 11:53 08/06/18 07:54 - Medications Medications: Current Medications Amiodarone HCl (Cordarone) 200 mg PO Q12H [facility] Last Admin: 08/06/18 05:56 Dose: Not Given Artificial Tears (Puralube Opht Oint) 1 appl OU Q4H PRN PRN Reason: Dry eyes Artificial Tears (Refresh Opth Soln) 0.3 ml OU Q4H PRN PRN Reason: Dry eyes Last Admin: 08/05/18 10:39 Dose: 1 drop Carvedilol (Coreg) 6.25 mg PO BID [facility] Last Admin: 08/06/18 11:52 Dose: Not Given Enoxaparin Sodium (Lovenox) 40 mg SC DAILY [facility]; Protocol Last Admin: 08/06/18 11:53 Dose: 40 mg Famotidine (Pepcid) 20 mg PO HS [facility] Last Admin: 08/05/18 21:47 Dose: 20 mg Lisinopril (Zestril) 2.5 mg PO DAILY [facility] Last Admin: 08/06/18 11:53 Dose: Not Given Valproate Sodium (Depakene Oral Soln) 1,000 mg PO Q12 [facility] Last Admin: 08/06/18 11:54 Dose: 1,000 mg - Labs Labs: 08/06/18 05:30 08/06/18 05:30 - Constitutional Appears: Non-toxic, No Acute Distress - Head Exam Head Exam: ATRAUMATIC, NORMOCEPHALIC - Eye Exam Eye Exam: EOMI - ENT Exam ENT Exam: Mucous Membranes Moist - Neck Exam Neck Exam: Full ROM, Normal Inspection - Respiratory Exam Respiratory Exam: Clear to Ausculation Bilateral, NORMAL BREATHING PATTERN. absent: Accessory Muscle Use, Rales, Rhonchi, Wheezes, Respiratory Distress - Cardiovascular Exam Cardiovascular Exam: REGULAR RHYTHM, RRR, +S1, +S2. absent: Gallop, Rubs, Murm ur Additional comments: L sided scar s/p AICD placement clean, dry, intact, healing as expected - GI/Abdominal Exam GI & Abdominal Exam: Soft, Normal Bowel Sounds. absent: Guarding, Tenderness - Extremities Exam Extremities Exam: Full ROM. absent: Pedal Edema - Back Exam Back Exam: NORMAL INSPECTION - Neurological Exam Neurological Exam: Alert, Awake, Oriented x3 - Psychiatric Exam Psychiatric exam: Normal Affect, Normal Mood - Skin Skin Exam: Dry, Intact, Warm Assessment and Plan - Assessment and Plan (Free Text) Assessment: 48 yo M with no known PMH who presented s/p VFib arrest (25 minutes of CPR) with subsequent targeted temperature management. He continued to improve s/p targeted temperature management and was subsequently extubated and transferred out of MICU. His course is complicated by severe LV systolic dysfunction and was first started on dobutamine in MICU, was maintained on amiodarone, coreg, and is now s/p AICD placement POD 8. He is pending [facility] transfer. Because of insurance difficulties, [facility] placement has been difficult. Plan: S/p VFib Arrest/NSTEMI with dilated cardiomyopathy May have had underlying cardiomyopathy but likely 2/2 VFib arrest event Patient is now s/p AICD placement POD 8 Continue lisinopril, coreg, amiodarone Per SW, patient's [place] med[place] does not have a benefit for [facility] Encourage PT to see patient twice daily and then discharge home when able Continue to f/u with patient's sister whether patient will be able to get an additional medicaid insurance Cardiology following, all recs appreciated Encephalopathy 2/2 cardiac arrest, resolving Patient is s/p targeted temperature management, neuro status has been gradually improving since Patient did have fall x 1 here at [facility] and another fall at [facility] Xrays completed at the time were negative Patient's mental status has improved Continue avasys (continuous video monitoring) Acute Hep B Infection Patient confirmed to have HbcAb, HbsAg, and HbeAg positive Outpatient treatment when patient is discharged from [facility] Patient tested positive for opioids and cannabis on admission Continue to advise for cessation DVT/GI PPX: Lovenox/pepcid Full Code Dysphagia/modified diet Monitor on med/surg Patient seen, examined with, and plan discussed with my attending Keila MaherO. IM Resident PGY-1 Pager: [phone] <Brayden Garcia - Last Filed: 08/06/18 16:07> Objective - Vital Signs/Intake and Output Vital Signs (last 24 hours): Temp Pulse Resp BP Pulse Ox 97.8 F 68 20 84/52 L 98 08/06/18 07:54 08/06/18 11:53 08/06/18 07:54 08/06/18 11:53 08/06/18 07:54 - Medications Medications: Current Medications Amiodarone HCl (Cordarone) 200 mg PO Q12H [facility] Last Admin: 08/06/18 05:56 Dose: Not Given Artificial Tears (Puralube Opht Oint) 1 appl OU Q4H PRN PRN Reason: Dry eyes Artificial Tears (Refresh Opth Soln) 0.3 ml OU Q4H PRN PRN Reason: Dry eyes Last Admin: 08/05/18 10:39 Dose: 1 drop Carvedilol (Coreg) 6.25 mg PO BID [facility] Last Admin: 08/06/18 11:52 Dose: Not Given Enoxaparin Sodium (Lovenox) 40 mg SC DAILY [facility]; Protocol Last Admin: 08/06/18 11:53 Dose: 40 mg Famotidine (Pepcid) 20 mg PO HS [facility] Last Admin: 08/05/18 21:47 Dose: 20 mg Lisinopril (Zestril) 2.5 mg PO DAILY [facility] Last Admin: 08/06/18 11:53 Dose: Not Given Valproate Sodium (Depakene Oral Soln) 1,000 mg PO Q12 [facility] Last Admin: 08/06/18 11:54 Dose: 1,000 mg - Labs Labs: 08/06/18 05:30 08/06/18 05:30 Attending/Attestation - Attestation I have personally seen and examined this patient.: Yes I have fully participated in the care of the patient.: Yes I have reviewed all pertinent clinical information, including history, physical exam and plan: Yes Notes (Text): 08/06/18 16:05 Attending note; Patient seen and examined with resident. Patient is alert and awake. table worker by the bedside. Patient is a 48 year old male with unknown past medical history that presented to the emergency room s/p cardiac arrest and ventricular fibrillation on 07/08/18. Patient was transferred to [facility] on 07/28/18 for AICD placement. Patient returned to [facility] on 07/29/18 s/p AICD placem ent. 1. S/P V-fib arrest. NSTEMI. Nonischemic dilated cardiomyopathy. S/P AICD placement. Continue amiodarone, Lisinopril and Coreg. Cardiology recommendations appreciated. Pending [facility] placement. 2. S/P acute anoxic encephalopathy post cardiac arrest. Improving. Aphasia improving. Continue Depakote for seizure prophylaxis. Continue supportive care. 3. Fall. Continue Avasys. Continue fall precautions. Continue PT. patient with significant improvement in gait and stability. 4. Hepatitis B infection. Patient will need to follow up outpatient with [facility] for further work up and treatment. 5. Drug abuse. Urine drug screen at initial admission positive for opioids and cannabinoids. Patient counseled on cessation. 6. GI/DVT prophylaxis. Pepcid/Lovenox. Case discussed with long term care social worker in detail. Patient currently does not have coverage for rehab placement. Will discuss with patient's sister in detail. Continue physical therapy. Family to assist him to get Medicaid for rehab.
[2018-08-07] MEDS: Valproic Acid 250 mg/5 ml UD Cup PO SCH ×2 (11:38→22:46)
[2018-08-07] MEDS: Enoxaparin 40 mg Syringe SC SCH (11:38)
--- NOTE | 2018-08-07 17:04 | CP.PCM.PN ---
<Parrish Garibay - Last Filed: 08/07/18 17:01> Subjective - Date & Time of Evaluation Date of Evaluation: 08/07/18 Time of Evaluation: 10:00 - Subjective Subjective: Parrish Garibay DO, PGY-1 Hospitalist Progress Note for Dr. Garcia Patient was seen and examined at bedside this AM. He has no new complaints this AM and continues to work with PT. PT is continuing to recommend [facility] but patient has only limited insurance with no benefit for [facility]. Objective - Vital Signs/Intake and Output Vital Signs (last 24 hours): Temp Pulse Resp BP Pulse Ox 98.6 F 69 20 113/78 97 08/07/18 16:19 08/07/18 16:19 08/07/18 16:19 08/07/18 16:19 08/07/18 16:19 Intake and Output: 08/07/18 08/07/18 06:59 18:59 Intake Total 1080 Output Total 1200 Balance -120 - Medications Medications: Current Medications Amiodarone HCl (Cordarone) 200 mg PO Q12H [facility] Last Admin: 08/06/18 18:03 Dose: 200 mg Artificial Tears (Puralube Opht Oint) 1 appl OU Q4H PRN PRN Reason: Dry eyes Artificial Tears (Refresh Opth Soln) 0.3 ml OU Q4H PRN PRN Reason: Dry eyes Last Admin: 08/05/18 10:39 Dose: 1 drop Carvedilol (Coreg) 6.25 mg PO BID [facility] Last Admin: 08/07/18 11:41 Dose: Not Given Enoxaparin Sodium (Lovenox) 40 mg SC DAILY [facility]; Protocol Last Admin: 08/07/18 11:38 Dose: 40 mg Famotidine (Pepcid) 20 mg PO HS [facility] Last Admin: 08/06/18 21:53 Dose: 20 mg Lisinopril (Zestril) 2.5 mg PO DAILY [facility] Last Admin: 08/07/18 11:41 Dose: Not Given Valproate Sodium (Depakene Oral Soln) 1,000 mg PO Q12 [facility] Last Admin: 08/07/18 11:38 Dose: 1,000 mg - Labs Labs: 08/06/18 05:30 08/06/18 05:30 - Constitutional Appears: Non-toxic, No Acute Distress - Head Exam Head Exam: ATRAUMATIC, NORMOCEPHALIC - Eye Exam Eye Exam: EOMI, PERRL - ENT Exam ENT Exam: Mucous Membranes Moist - Neck Exam Neck Exam: Full ROM, Normal Inspection - Respiratory Exam Respiratory Exam: Clear to Ausculation Bilateral, NORMAL BREATHING PATTERN. absent: Accessory Muscle Use, Rales, Rhonchi, Wheezes, Respiratory Distress - Cardiovascular Exam Cardiovascular Exam: REGULAR RHYTHM, RRR, +S1, +S2. absent: Gallop, Rubs, Murmur - GI/Abdominal Exam GI & Abdominal Exam: Soft, Normal Bowel Sounds. absent: Guarding, Tenderness - Extremities Exam Extremities Exam: Full ROM. absent: Pedal Edema - Back Exam Back Exam: NORMAL INSPECTION - Neurological Exam Neurological Exam: Alert, Awake, Oriented x3 - Psychiatric Exam Psychiatric exam: Normal Affect, Normal Mood - Skin Skin Exam: Dry, Intact, Warm Assessment and Plan - Assessment and Plan (Free Text) Assessment: 48 yo M with no known PMH who presented s/p VFib arrest (25 minutes of CPR) with subsequent targeted temperature management. He continued to improve s/p targeted temperature management and was subsequently extubated and transferred out of MICU. His course is complicated by severe LV systolic dysfunction and was first started on dobutamine in MICU, was maintained on amiodarone, coreg, and is now s/p AICD placement POD 8. He is pending [facility] transfer. Because of insurance difficulties, [facility] placement has been difficult. Plan: S/p VFib Arrest/NSTEMI with dilated cardiomyopathy May have had underlying cardiomyopathy but likely 2/2 VFib arrest event Patient is now s/p AICD placement POD 9 Patient's insurance has no benefit for [facility] but PT is continuing to recommend [facility] Will continue PT/OT and f/u when patient may be able to go home Cardiology following, all recs appreciated Encephalopathy 2/2 cardiac arrest, resolving Patient is s/p targeted temperature management, neuro status has been gradually improving since Patient fell once here, also fell when he was at [facility] Gait has improved, but PT is still recommending [facility] Continue avasys (continuous video monitoring) Acute Hep B Infection Patient confirmed to have HbcAb, HbsAg, and HbeAg positive Outpatient treatment when patient is discharged IVDA Patient tested positive for opioids and cannabis on admission Continue to advise cessation DVT/GI PPX: Lovenox/pepcid Full Code Dysphagia/modified diet Monitor on med/surg Patient seen, examined with, and plan discussed with my attending Dr. Radha Garibay D.O. IM Resident PGY-1 Pager: [phone] <Brayden Garcia - Last Filed: 08/07/18 17:46> Objective - Vital Signs/Intake and Output Vital Signs (last 24 hours): Temp Pulse Resp BP Pulse Ox 98.6 F 69 20 113/78 97 08/07/18 16:19 08/07/18 16:19 08/07/18 16:19 08/07/18 16:19 08/07/18 16:19 Intake and Output: 08/07/18 08/07/18 06:59 18:59 Intake Total 1080 Output Total 1200 Balance -120 - Medications Medications: Current Medications Amiodarone HCl (Cordarone) 200 mg PO Q12H [facility] Last Admin: 08/06/18 18:03 Dose: 200 mg Artificial Tears (Puralube Opht Oint) 1 appl OU Q4H PRN PRN Reason: Dry eyes Artificial Tears (Refresh Opth Soln) 0.3 ml OU Q4H PRN PRN Reason: Dry eyes Last Admin: 08/05/18 10:39 Dose: 1 drop Carvedilol (Coreg) 6.25 mg PO BID [facility] Last Admin: 08/07/18 11:41 Dose: Not Given Enoxaparin Sodium (Lovenox) 40 mg SC DAILY [facility]; Protocol Last Admin: 08/07/18 11:38 Dose: 40 mg Famotidine (Pepcid) 20 mg PO HS [facility] Last Admin: 08/06/18 21:53 Dose: 20 mg Lisinopril (Zestril) 2.5 mg PO DAILY [facility] Last Admin: 08/07/18 11:41 Dose: Not Given Valproate Sodium (Depakene Oral Soln) 1,000 mg PO Q12 [facility] Last Admin: 08/07/18 11:38 Dose: 1,000 mg - Labs Labs: 08/06/18 05:30 08/06/18 05:30 Attending/Attestation - Attestation I have personally seen and examined this patient.: Yes I have fully participated in the care of the patient.: Yes I have reviewed all pertinent clinical information, including history, physical exam and plan: Yes Notes (Text): 08/07/18 17:45 Attending note; Patient seen and examined with resident. Patient is alert and awake. Patient is a 48 year old male with unknown past medical history that presented to the emergency room s/p cardiac arrest and ventricular fibrillation on 07/08/18. Patient was transferred to [facility] on 07/28/18 for AICD placement. Patient returned to [facility] on 07/29/18 s/p AICD placement. 1. S/P V-fib arrest. NSTEMI. Nonischemic dilated cardiomyopathy. S/P AICD placement. Continue amiodarone, Lisinopril and Coreg. Cardiology recommendations appreciated. Pending [facility] placement. 2. S/P acute anoxic encephalopathy post cardiac arrest. Improving. Aphasia improving. Continue Depakote for seizure prophylaxis. Continue supportive care. 3. Fall. Continue Avasys. Continue fall precautions. Continue PT. patient with significant improvement in gait and stability. 4. Hepatitis B infection. Patient will need to follow up outpatient with [facility] for further work up and treatment. 5. Drug abuse. Urine drug screen at initial admission positive for opioids and cannabinoids. Patient counseled on cessation. 6. GI/DVT prophylaxis. Pepcid/Lovenox. Case discussed with psychotherapist social worker in detail. Patient currently does not have coverage for rehab placement. Will discuss with patient's sister in detail. Continue physical therapy. Family to assist him to get Medicaid for rehab.
[2018-08-08 09:23] LABS: BASO # 0.02 K/mm3 (0.0-2.0); BASO % 0.3 % (0.0-3.0); EOS # 0.3 (0.0-0.7); EOS % 5.2 % (1.5-5.0); HEMOGLOBIN 12.3 g/dL (14.0-18.0); LYMPH # 1.5 (1.2-3.4); LYMPH % 24.8 % (22.0-35.0); MEAN CELL VOLUME 97.9 fl (80.0-105.0); MEAN CORPUSCULAR HEMOGLOBIN 31.7 pg (25.0-35.0); MEAN CORPUSCULAR HGB CONC 32.4 g/dl (31.0-37.0); MEAN PLATELET VOLUME 9.9 fl (7.0-11.0); MONO # 0.4 (0.1-0.6); MONO % 6.7 % (1.0-6.0); RBC 3.88 10^6/uL (3.5-6.1); RED CELL DISTRIBUTION WIDTH 13.3 % (11.5-14.5); WHITE BLOOD COUNT 6.1 10^3/uL (4.5-11.0)
[2018-08-08 09:38] LABS: ALB/GLOB RATIO 1.1 (1.1-1.8); ALT/SGPT 38 U/L (7-56); AST/SGOT 48 U/L (17-59); BLOOD UREA NITROGEN 17 mg/dL (7-21); CALCIUM 9.4 mg/dL (8.4-10.5); GFR NON-AFRICAN AMERICAN > 60
[2018-08-08] MEDS: Valproic Acid 250 mg/5 ml UD Cup PO SCH ×2 (09:46→22:29)
[2018-08-08] MEDS: Enoxaparin 40 mg Syringe SC SCH (09:48)
--- NOTE | 2018-08-08 12:20 | PN ---
DATE: 08/08/2018 SUBJECTIVE: The patient's condition is unchanged. No shortness of breath. The patient remains confused. PHYSICAL EXAMINATION: VITAL SIGNS: Blood pressure was 103/67, heart rate is in the 60s. NECK: Negative JVD. LUNGS: Without rales. HEART: S1, S2. EXTREMITIES: Without edema. LABORATORY DATA: Hemoglobin is 12.3. Chemistries, BUN and creatinine unremarkable. IMPRESSION: 1. Status post ventricular tachycardia arrest. 2. Dilated cardiomyopathy. 3. Probable anoxic encephalopathy. PLAN: Given these findings, the patient's arrhythmia is well controlled with amiodarone. He is status post ICD placement. Awaiting for placement. Kelby Guerrero MD
--- NOTE | 2018-08-08 13:33 | CP.PCM.PN ---
<Cristian Hansen - Last Filed: 08/08/18 13:42> Subjective - Date & Time of Evaluation Date of Evaluation: 08/08/18 Time of Evaluation: 06:10 - Subjective Subjective: Cristian Hansen DO PGY1 Hospitalist Progress Note for Dr Garcia Patient seen and examined at bedside. Patient reports no complaints. No acute events overnight Objective - Vital Signs/Intake and Output Vital Signs (last 24 hours): Temp Pulse Resp BP Pulse Ox 97.3 F L 63 16 103/67 99 08/08/18 06:00 08/08/18 09:48 08/08/18 06:00 08/08/18 09:48 08/08/18 06:00 Intake and Output: 08/08/18 08/08/18 06:59 18:59 Intake Total 240 Output Total 300 Balance -60 - Medications Medications: Current Medications Amiodarone HCl (Cordarone) 200 mg PO Q12H [facility] Last Admin: 08/08/18 06:24 Dose: 200 mg Artificial Tears (Puralube Opht Oint) 1 appl OU Q4H PRN PRN Reason: Dry eyes Artificial Tears (Refresh Opth Soln) 0.3 ml OU Q4H PRN PRN Reason: Dry eyes Last Admin: 08/05/18 10:39 Dose: 1 drop Carvedilol (Coreg) 6.25 mg PO BID [facility] Last Admin: 08/08/18 09:45 Dose: 6.25 mg Enoxaparin Sodium (Lovenox) 40 mg SC DAILY [facility]; Protocol Last Admin: 08/08/18 09:48 Dose: 40 mg Famotidine (Pepcid) 20 mg PO HS [facility] Last Admin: 08/07/18 22:47 Dose: 20 mg Lisinopril (Zestril) 2.5 mg PO DAILY [facility] Last Admin: 08/08/18 09:48 Dose: 2.5 mg Valproate Sodium (Depakene Oral Soln) 1,000 mg PO Q12 [facility] Last Admin: 08/08/18 09:46 Dose: 1,000 mg - Labs Labs: 08/08/18 09:10 08/08/18 09:10 - Additional Findings Additional findings: - Constitutional Appears: Non-toxic, No Acute Distress - Head Exam Head Exam: ATRAUMATIC, NORMOCEPHALIC - Eye Exam Eye Exam: EOMI, PERRL - ENT Exam ENT Exam: Mucous Membranes Moist - Neck Exam Neck Exam: Full ROM, Normal Inspection - Respiratory Exam Respiratory Exam: Clear to Ausculation Bilateral, NORMAL BREATHING PATTERN. absent: Accessory Muscle Use, Rales, Rhonchi, Wheezes, Respiratory Distress - Cardiovascular Exam Cardiovascular Exam: REGULAR RHYTHM, RRR, +S1, +S2. absent: Gallop, Rubs, Murmur - GI/Abdominal Exam GI & Abdominal Exam: Soft, Normal Bowel Sounds. absent: Guarding, Tenderness - Extremities Exam Extremities Exam: Full ROM. absent: Pedal Edema - Back Exam Back Exam: NORMAL INSPECTION - Neurological Exam Neurological Exam: Alert, Awake, Oriented x3 - Psychiatric Exam Psychiatric exam: Normal Affect, Normal Mood - Skin Skin Exam: Dry, Intact, Warm Assessment and Plan - Assessment and Plan (Free Text) Assessment: 48 yo M with no known PMH who presented s/p VFib arrest (25 minutes of CPR) with subsequent targeted temperature management. He continued to improve s/p targeted temperature management. s/p AICD placement, complicated by severe LV systolic dysfunction. Now pending [facility] placement. Plan: s/p VFib Arrest/NSTEMI with non ischemic dilated cardiomyopathy -s/p AICD placement -continue coreg, amiodarone, lisinopril -cardiology following Resolving encephalopathy in the setting of cardiac arrest -s/p targeted temperature management, neuro status has been gradually improving since -continue Depakote for seizure prophylaxis -continue avasys (continuous video monitoring) Acute Hep B Infection -HbcAb, HbsAg, and HbeAg positive -outpatient treatment recommended at [facility] -UDS positive for opioids and cannabis -counseling provided PPX: -GI: pepcid -DVT: SCD, lovenox -continue PT -[facility] recommended, working on placement -dysphagia/modified diet -full Code Case reviewed and paln discussed with attending Dr Radha Hansen, DO <Brayden Garcia - Last Filed: 08/08/18 15:42> Objective - Vital Signs/Intake and Output Vital Signs (last 24 hours): Temp Pulse Resp BP Pulse Ox 97.3 F L 63 16 103/67 99 08/08/18 06:00 08/08/18 09:48 08/08/18 06:00 08/08/18 09:48 08/08/18 06:00 Intake and Output: 08/08/18 08/08/18 06:59 18:59 Intake Total 240 Output Total 300 Balance -60 - Medications Medications: Current Medications Amiodarone HCl (Cordarone) 200 mg PO Q12H [facility] Last Admin: 08/08/18 06:24 Dose: 200 mg Artificial Tears (Puralube Opht Oint) 1 appl OU Q4H PRN PRN Reason: Dry eyes Artificial Tears (Refresh Opth Soln) 0.3 ml OU Q4H PRN PRN Reason: Dry eyes Last Admin: 08/05/18 10:39 Dose: 1 drop Carvedilol (Coreg) 6.25 mg PO BID [facility] Last Admin: 08/08/18 09:45 Dose: 6.25 mg Enoxaparin Sodium (Lovenox) 40 mg SC DAILY [facility]; Protocol Last Admin: 08/08/18 09:48 Dose: 40 mg Famotidine (Pepcid) 20 mg PO HS [facility] Last Admin: 08/07/18 22:47 Dose: 20 mg Lisinopril (Zestril) 2.5 mg PO DAILY [facility] Last Admin: 08/08/18 09:48 Dose: 2.5 mg Valproate Sodium (Depakene Oral Soln) 1,000 mg PO Q12 [facility] Last Admin: 08/08/18 09:46 Dose: 1,000 mg - Labs Labs: 08/08/18 09:10 08/08/18 09:10 Attending/Attestation - Attestation I have personally seen and examined this patient.: Yes I have fully participated in the care of the patient.: Yes I have reviewed all pertinent clinical information, including history, physical exam and plan: Yes Notes (Text): 08/08/18 15:42 Attending note; Patient seen and examined with resident. Patient is alert and awake. not in distress. improving with physical therapy. Patient is a 48 year old male with unknown past medical history that presented to the emergency room s/p cardiac arrest and ventricular fibrillation on 07/08/18. Patient was transferred to [facility] on 07/28/18 for AICD placement. Patient returned to [facility] on 07/29/18 s/p AICD placement. 1. S/P V-fib arrest. NSTEMI. Nonischemic dilated cardiomyopathy. S/P AICD placement. Continue amiodarone, Lisinopril and Coreg. Cardiology recommendations appreciated. Pending [facility] placement. 2. S/P acute anoxic encephalopathy post cardiac arrest. Improving. Aphasia improving. Continue Depakote for seizure prophylaxis. Continue supportive care. 3. Fall. Continue Avasys. Continue fall precautions. Continue PT. patient with significant improvement in gait and stability. 4. Hepatitis B infection. Patient will need to follow up outpatient with [facility] for further work up and treatment. 5. Drug abuse. Urine drug screen at initial admission positive for opioids and cannabinoids. Patient counseled on cessation. 6. GI/DVT prophylaxis. Pepcid/Lovenox. Case discussed with social work program coordinator in detail. Patient currently does not have coverage for rehab placement. Will discuss with patient's sister in detail. Continue physical therapy. Family to assist him to get Medicaid for rehab.
[2018-08-09 06:58] LABS: ALB/GLOB RATIO 1.1 (1.1-1.8); ALBUMIN 3.4 g/dL (3.0-4.8); ALT/SGPT 40 U/L (7-56); AST/SGOT 39 U/L (17-59); BLOOD UREA NITROGEN 25 mg/dL (7-21); CALCIUM 8.9 mg/dL (8.4-10.5); GFR NON-AFRICAN AMERICAN > 60
[2018-08-09 07:08] LABS: BASO # 0.03 K/mm3 (0.0-2.0); BASO % 0.4 % (0.0-3.0); EOS # 0.4 (0.0-0.7); EOS % 4.8 % (1.5-5.0); HEMOGLOBIN 11.1 g/dL (14.0-18.0); LYMPH # 2.2 (1.2-3.4); LYMPH % 29.7 % (22.0-35.0); MEAN CELL VOLUME 98.9 fl (80.0-105.0); MEAN CORPUSCULAR HEMOGLOBIN 31.4 pg (25.0-35.0); MEAN CORPUSCULAR HGB CONC 31.8 g/dl (31.0-37.0); MEAN PLATELET VOLUME 10.5 fl (7.0-11.0); MONO # 0.7 (0.1-0.6); MONO % 9.3 % (1.0-6.0); RBC 3.53 10^6/uL (3.5-6.1); RED CELL DISTRIBUTION WIDTH 13.5 % (11.5-14.5); WHITE BLOOD COUNT 7.5 10^3/uL (4.5-11.0)
[2018-08-09] MEDS: Enoxaparin 40 mg Syringe SC SCH (10:01)
[2018-08-09] MEDS: Valproic Acid 250 mg/5 ml UD Cup PO SCH ×2 (10:01→21:12)
--- NOTE | 2018-08-09 17:23 | CP.PCM.PN ---
<Cristian Hansen - Last Filed: 08/09/18 19:54> Subjective - Date & Time of Evaluation Date of Evaluation: 08/09/18 Time of Evaluation: 08:00 - Subjective Subjective: Cristian Hansen DO PGY1 Hospitalist Progress Note for Dr Garcia Patient seen and examined at bedside. Patient reports no complaints. No acute events overnight Objective - Vital Signs/Intake and Output Vital Signs (last 24 hours): Temp Pulse Resp BP Pulse Ox 97.8 F 65 18 94/60 L 99 08/09/18 07:55 08/09/18 09:58 08/09/18 07:55 08/09/18 09:58 08/09/18 07:55 Intake and Output: 08/09/18 08/09/18 06:59 18:59 Intake Total 980 Output Total 1100 Balance -120 - Medications Medications: Current Medications Amiodarone HCl (Cordarone) 200 mg PO Q12H [facility] Last Admin: 08/09/18 07:00 Dose: Not Given Artificial Tears (Puralube Opht Oint) 1 appl OU Q4H PRN PRN Reason: Dry eyes Artificial Tears (Refresh Opth Soln) 0.3 ml OU Q4H PRN PRN Reason: Dry eyes Last Admin: 08/05/18 10:39 Dose: 1 drop Carvedilol (Coreg) 6.25 mg PO BID [facility] Last Admin: 08/09/18 09:58 Dose: Not Given Enoxaparin Sodium (Lovenox) 40 mg SC DAILY [facility]; Protocol Last Admin: 08/09/18 10:01 Dose: 40 mg Famotidine (Pepcid) 20 mg PO HS [facility] Last Admin: 08/08/18 22:29 Dose: 20 mg Lisinopril (Zestril) 2.5 mg PO DAILY [facility] Last Admin: 08/09/18 09:58 Dose: Not Given Valproate Sodium (Depakene Oral Soln) 1,000 mg PO Q12 [facility] Last Admin: 08/09/18 10:01 Dose: 1,000 mg - Labs Labs: 08/09/18 05:15 08/09/18 05:15 - Additional Findings Additional findings: - Constitutional Appears: Non-toxic, No Acute Distress - Head Exam Head Exam: ATRAUMATIC, NORMOCEPHALIC - Eye Exam Eye Exam: EOMI, PERRL - ENT Exam ENT Exam: Mucous Membranes Moist - Neck Exam Neck Exam: Full ROM, Normal Inspection - Respiratory Exam Respiratory Exam: Clear to Ausculation Bilateral, NORMAL BREATHING PATTERN. absent: Accessory Muscle Use, Rales, Rhonchi, Wheezes, Respiratory Distress - Cardiovascular Exam Cardiovascular Exam: REGULAR RHYTHM, RRR, +S1, +S2. absent: Gallop, Rubs, Murmur - GI/Abdominal Exam GI & Abdominal Exam: Soft, Normal Bowel Sounds. absent: Guarding, Tenderness - Extremities Exam Extremities Exam: Full ROM. absent: Pedal Edema - Back Exam Back Exam: NORMAL INSPECTION - Neurological Exam Neurological Exam: Alert, Awake, Oriented x3 - Psychiatric Exam Psychiatric exam: Normal Affect, Normal Mood - Skin Skin Exam: Dry, Intact, Warm Assessment and Plan - Assessment and Plan (Free Text) Assessment: 48 yo M with no known PMH who presented s/p VFib arrest (25 minutes of CPR) with subsequent targeted temperature management. He continued to improve s/p targeted temperature management. s/p AICD placement, complicated by severe LV systolic dysfunction. Now pending [facility] placement. Plan: s/p VFib Arrest/NSTEMI with non ischemic dilated cardiomyopathy -s/p AICD placement -continue coreg, amiodarone, lisinopril -cardiology following Acute Hep B Infection -HbcAb, HbsAg, and HbeAg positive -outpatient treatment recommended at [facility] Resolving encephalopathy in the setting of cardiac arrest -s/p targeted temperature management, neuro status has been gradually improving since -continue Depakote for seizure prophylaxis -continue avasys (continuous video monitoring) IVDA -UDS positive for opioids and cannabis -counseling provided PPX: -GI: pepcid -DVT: SCD, lovenox -continue PT -[facility] recommended, working on placement -dysphagia/modified diet -full Code Case reviewed and paln discussed with attending Dr Radha Hansen, DO <Brayden Garcia - Last Filed: 08/13/18 13:28> Objective - Vital Signs/Intake and Output Vital Signs (last 24 hours): Temp Pulse Resp BP Pulse Ox 98.2 F 70 20 99/63 L 97 08/13/18 06:00 08/13/18 10:10 08/13/18 06:00 08/13/18 10:10 08/13/18 06:00 Intake and Output: 05/22/19 05/22/19 06:59 18:59 Intake Total 1999 380 Output Total 1400 Balance 600 380 - Medications Medications: Current Medications Amiodarone HCl (Cordarone) 200 mg PO Q12H [facility] Last Admin: 08/13/18 06:29 Dose: 200 mg Artificial Tears (Puralube Opht Oint) 1 appl OU Q4H PRN PRN Reason: Dry eyes Artificial Tears (Refresh Opth Soln) 0.3 ml OU Q4H PRN PRN Reason: Dry eyes Last Admin: 08/05/18 10:39 Dose: 1 drop Carvedilol (Coreg) 6.25 mg PO BID [facility] Last Admin: 08/13/18 10:10 Dose: 6.25 mg Enoxaparin Sodium (Lovenox) 40 mg SC DAILY [facility]; Protocol Last Admin: 08/13/18 10:11 Dose: 40 mg Famotidine (Pepcid) 20 mg PO HS [facility] Last Admin: 08/12/18 22:05 Dose: 20 mg Valproate Sodium (Depakene Oral Soln) 500 mg PO Q12 [facility] - Labs Labs: 08/12/18 07:00 08/12/18 07:00 Attending/Attestation - Attestation I have personally seen and examined this patient.: Yes I have fully participated in the care of the patient.: Yes I have reviewed all pertinent clinical information, including history, physical exam and plan: Yes Notes (Text): 08/13/18 13:27 Attending note; Patient seen and examined with resident. Patient is alert and awake. not in distress. tolerating diet. improving with physical therapy. Patient is a 48 year old male with unknown past medical history that presented to the emergency room s/p cardiac arrest and ventricular fibrillation on 07/08/18. Patient was transferred to [facility] on 07/28/18 for AICD placement. Patient returned to [facility] on 07/29/18 s/p AICD placement. 1. S/P V-fib arrest. NSTEMI. Nonischemic dilated cardiomyopathy. S/P AICD placement. Continue amiodarone, Lisinopril and Coreg. Cardiology recommendations appreciated. Pending [facility] placement. 2. S/P acute anoxic encephalopathy post cardiac arrest. Improving. Aphasia improving. Continue Depakote for seizure prophylaxis. Continue supportive care. 3. Fall. Continue Avasys. Continue fall precautions. Continue PT. patient with significant improvement in gait and stability. 4. Hepatitis B infection. Patient will need to follow up outpatient with [facility] for further work up and treatment. 5. Drug abuse. Urine drug screen at initial admission positive for opioids and cannabinoids. Patient counseled on cessation. 6. GI/DVT prophylaxis. Pepcid/Lovenox. Case discussed with director of social services in detail. Patient currently does not have coverage for rehab placement. Will discuss with patient's sister in detail. Continue physical therapy. Family to assist him to get Medicaid for rehab.
[2018-08-10 06:49] LABS: ALB/GLOB RATIO 1.1 (1.1-1.8); ALBUMIN 3.4 g/dL (3.0-4.8); ALT/SGPT 37 U/L (7-56); AST/SGOT 40 U/L (17-59); BASO # 0.03 K/mm3 (0.0-2.0); BASO % 0.4 % (0.0-3.0); BLOOD UREA NITROGEN 28 mg/dL (7-21); CALCIUM 8.9 mg/dL (8.4-10.5); EOS # 0.3 (0.0-0.7); EOS % 4.4 % (1.5-5.0); GFR NON-AFRICAN AMERICAN > 60; HEMOGLOBIN 10.9 g/dL (14.0-18.0); LYMPH # 2.1 (1.2-3.4); LYMPH % 28.5 % (22.0-35.0); MEAN CELL VOLUME 99.7 fl (80.0-105.0); MEAN CORPUSCULAR HEMOGLOBIN 31.1 pg (25.0-35.0); MEAN CORPUSCULAR HGB CONC 31.2 g/dl (31.0-37.0); MEAN PLATELET VOLUME 10.6 fl (7.0-11.0); MONO # 0.6 (0.1-0.6); MONO % 8.4 % (1.0-6.0); RBC 3.5 10^6/uL (3.5-6.1); RED CELL DISTRIBUTION WIDTH 13.5 % (11.5-14.5); WHITE BLOOD COUNT 7.5 10^3/uL (4.5-11.0)
[2018-08-10] MEDS: Enoxaparin 40 mg Syringe SC SCH (10:36)
[2018-08-10] MEDS: Valproic Acid 250 mg/5 ml UD Cup PO SCH ×2 (10:36→21:06)
--- NOTE | 2018-08-10 11:40 | CP.PCM.PN ---
<Cristian Hansen - Last Filed: 08/10/18 11:35> Subjective - Date & Time of Evaluation Date of Evaluation: 08/10/18 Time of Evaluation: 07:10 - Subjective Subjective: Cristian Hansen DO PGY1 Hospitalist Progress Note for Dr Walker Patient seen and examined at bedside. Patient reports no complaints. No acute events overnight. Tolerating diet with regular BM Objective - Vital Signs/Intake and Output Vital Signs (last 24 hours): Temp Pulse Resp BP Pulse Ox 97.9 F 62 18 99/68 L 98 08/10/18 07:58 08/10/18 07:58 08/10/18 07:58 08/10/18 10:35 08/10/18 07:58 Intake and Output: 08/10/18 08/10/18 06:59 18:59 Intake Total 2109 Output Total 2250 Balance -141 - Medications Medications: Current Medications Amiodarone HCl (Cordarone) 200 mg PO Q12H [facility] Last Admin: 08/10/18 05:18 Dose: Not Given Artificial Tears (Puralube Opht Oint) 1 appl OU Q4H PRN PRN Reason: Dry eyes Artificial Tears (Refresh Opth Soln) 0.3 ml OU Q4H PRN PRN Reason: Dry eyes Last Admin: 08/05/18 10:39 Dose: 1 drop Carvedilol (Coreg) 6.25 mg PO BID [facility] Last Admin: 08/10/18 10:35 Dose: Not Given Enoxaparin Sodium (Lovenox) 40 mg SC DAILY [facility]; Protocol Last Admin: 08/10/18 10:36 Dose: 40 mg Famotidine (Pepcid) 20 mg PO HS [facility] Last Admin: 08/09/18 21:12 Dose: 20 mg Lisinopril (Zestril) 2.5 mg PO DAILY [facility] Last Admin: 08/10/18 10:35 Dose: Not Given Valproate Sodium (Depakene Oral Soln) 1,000 mg PO Q12 [facility] Last Admin: 08/10/18 10:36 Dose: 1,000 mg - Labs Labs: 08/10/18 05:00 08/10/18 05:00 - Additional Findings Additional findings: - Constitutional Appears: Non-toxic, No Acute Distress - Head Exam Head Exam: ATRAUMATIC, NORMOCEPHALIC - Eye Exam Eye Exam: EOMI, PERRL - ENT Exam ENT Exam: Mucous Membranes Moist - Neck Exam Neck Exam: Full ROM, Normal Inspection - Respiratory Exam Respiratory Exam: Clear to Ausculation Bilateral, NORMAL BREATHING PATTERN. absent: Accessory Muscle Use, Rales, Rhonchi, Wheezes, Respiratory Distress - Cardiovascular Exam Cardiovascular Exam: REGULAR RHYTHM, RRR, +S1, +S2. absent: Gallop, Rubs, Murmur - GI/Abdominal Exam GI & Abdominal Exam: Soft, Normal Bowel Sounds. absent: Guarding, Tenderness - Extremities Exam Extremities Exam: Full ROM. absent: Pedal Edema - Back Exam Back Exam: NORMAL INSPECTION - Neurological Exam Neurological Exam: Alert, Awake, Oriented x3 - Psychiatric Exam Psychiatric exam: Normal Affect, Normal Mood - Skin Skin Exam: Dry, Intact, Warm Assessment and Plan - Assessment and Plan (Free Text) Assessment: 48 yo M with no known PMH who presented s/p VFib arrest (25 minutes of CPR) with subsequent targeted temperature management. He continued to improve s/p targeted temperature management. s/p AICD placement, complicated by severe LV systolic dysfunction. Now pending ARGENIS placement. Plan: s/p VFib Arrest/NSTEMI with non ischemic dilated cardiomyopathy -s/p AICD placement -continue coreg, amiodarone, lisinopril -cardiology following Acute Hep B Infection -HbcAb, HbsAg, and HbeAg positive -outpatient treatment recommended at [facility] Resolving encephalopathy in the setting of cardiac arrest -patient is awake, alert, communicating in conversation and answering questions -s/p targeted temperature management, neuro status has been gradually improving since -continue Depakote for seizure prophylaxis -continue avasys (continuous video monitoring) IVDA -UDS positive for opioids and cannabis -counseling provided PPX: -GI: pepcid -DVT: SCD, lovenox -continue PT -ARGENIS recommended, working on placement -dysphagia/modified diet -full Code Case reviewed and paln discussed with attending Dr Aaron Hansen, DO <Carmela Walker R - Last Filed: 08/10/18 15:36> Objective - Vital Signs/Intake and Output Vital Signs (last 24 hours): Temp Pulse Resp BP Pulse Ox 97.9 F 62 18 99/68 L 98 08/10/18 07:58 08/10/18 07:58 08/10/18 07:58 08/10/18 10:35 08/10/18 07:58 Intake and Output: 08/10/18 08/10/18 06:59 18:59 Intake Total 2109 Output Total 2250 Balance -141 - Medications Medications: Current Medications Amiodarone HCl (Cordarone) 200 mg PO Q12H [facility] Last Admin: 08/10/18 05:18 Dose: Not Given Artificial Tears (Puralube Opht Oint) 1 appl OU Q4H PRN PRN Reason: Dry eyes Artificial Tears (Refresh Opth Soln) 0.3 ml OU Q4H PRN PRN Reason: Dry eyes Last Admin: 08/05/18 10:39 Dose: 1 drop Carvedilol (Coreg) 6.25 mg PO BID [facility] Enoxaparin Sodium (Lovenox) 40 mg SC DAILY [facility]; Protocol Last Admin: 08/10/18 10:36 Dose: 40 mg Famotidine (Pepcid) 20 mg PO HS [facility] Last Admin: 08/09/18 21:12 Dose: 20 mg Valproate Sodium (Depakene Oral Soln) 1,000 mg PO Q12 [facility] Last Admin: 08/10/18 10:36 Dose: 1,000 mg - Labs Labs: 08/10/18 05:00 08/10/18 05:00 Attending/Attestation - Attestation I have personally seen and examined this patient.: Yes I have fully participated in the care of the patient.: Yes I have reviewed all pertinent clinical information, including history, physical exam and plan: Yes Notes (Text): Patient seen and examined by me with resident at approximately 8:45AM on 08/10/18. Case including HPI, physical exam, and assessment and plan discussed with resident. Agree with above with following additions/corrections. Patient is a 48 year old male with unknown past medical history that presented to the emergency room s/p cardiac arrest and ventricular fibrillation on 07/08/18. Patient was transferred to [facility] on 07/28/18 for AICD placement. Patient returned to [facility] on 07/29/18 s/p AICD placement. Patient states he feels fine. Patient is hungry and wants to eat breakfast. Patient states he has discomfort at AICD site when he sleeps on the area. He denies chest pain or shortness of breath. No headaches or dizziness. No fevers or chills. No nausea, vomiting, or abdominal pain. No dysuria. Physical exam: General: Awake and alert lying in bed in no acute distress HEENT: Normocephalic, atraumatic. Extraocular muscles intact. Pupils equal and reactive, no scleral icterus. Oropharynx is pink. Neck is supple. Cardiovascular: Normal rhythm. Normal S1 and S2. No murmurs, rubs, or gallops appreciated Pulmonary: Normal respiratory effort. No rhonchi, rales, or wheezing appreciated Gastrointestinal: Soft, nondistended. Nontender. Positive bowel sounds all 4 alejandro drants. No guarding. Musculoskeletal: Moves all extremities. No calf tenderness. No edema appreciat ed. Central nervous system: Awake and alert. Follows commands. Speech much improved. Dermatologic: Skin warm and dry. AICD felt under skin left anterior upper chest wall. Assessment and plan: Patient is a 48 year old male with unknown past medical history that presented to the emergency room s/p cardiac arrest and ventricular fibrillation on 07/08/18. Patient was transferred to [facility] on 07/28/18 for AICD placement. Patient returned to [facility] on 07/29/18 s/p AICD placement. 1. Gait instability. Pending ARGENIS. Continue fall precautions. Continue PT. 2. S/P V-fib arrest. NSTEMI. Nonischemic dilated cardiomyopathy. S/P AICD placement. Continue amiodarone 200mg PO q12. Continue Lisinopril and Coreg. No ASA per chief executive or managing director. Cardiology recommendations appreciated. Pending ARGENIS placement. 3. S/P acute anoxic encephalopathy. Speech much improved. Continue Depakote for seizure prophylaxis. Continue supportive care. Speech and swallow following. Continue PT. Pending ARGENIS placement 4. Fall. Continue Avasys. Continue fall precautions. Continue PT. ARGENIS pending. Pelvic xray per radiologist showed negative study. 5. Hepatitis B infection. Patient will need to follow up outpatient with [facility] for further work up and treatment. 6. Drug abuse. Urine drug screen at initial admission positive for opioids and cannabinoids. Patient counseled on cessation. 7. GI/DVT prophylaxis. Pepcid/Lovenox. 8. Dipso. Awaiting ARGENIS. Case was discussed in detail with the patient regarding current diagnosis and treatment plan.
--- NOTE | 2018-08-10 13:52 | PN ---
DATE: 08/10/2018 SUBJECTIVE: The patient is asymptomatic. He states physical therapy has helped him walking in the [place]. He is unable to walk independently. PHYSICAL EXAMINATION: VITAL SIGNS: Blood pressure is approximately 90 systolic, heart rates in the 60s. NECK: Negative JVD. LUNGS: Without rales. HEART: S1, S2. EXTREMITIES: Without edema. LABORATORY DATA: Hemoglobin is 10.9. Chemistries, BUN and creatinine unremarkable. IMPRESSION: 1. Status post ventricular fibrillation arrest. 2. Dilated cardiomyopathy (nonischemic). 3. Anoxic encephalopathy. 4. Diffuse weakness and confusion. Given these findings, the patient needs to be on amiodarone. Kindly do not stop his amiodarone given that v-fib is his issue. We will discontinue the Zestril. Kelby Guerrero MD
[2018-08-11 07:04] LABS: ALB/GLOB RATIO 1.1 (1.1-1.8); ALBUMIN 3.4 g/dL (3.0-4.8); ALT/SGPT 32 U/L (7-56); AST/SGOT 40 U/L (17-59); BLOOD UREA NITROGEN 28 mg/dL (7-21); GFR NON-AFRICAN AMERICAN > 60
[2018-08-11 07:09] LABS: BASO # 0.03 K/mm3 (0.0-2.0); BASO % 0.4 % (0.0-3.0); EOS # 0.3 (0.0-0.7); EOS % 3.6 % (1.5-5.0); HEMOGLOBIN 10.9 g/dL (14.0-18.0); LYMPH # 2.1 (1.2-3.4); LYMPH % 29.5 % (22.0-35.0); MEAN CELL VOLUME 100.3 fl (80.0-105.0); MEAN CORPUSCULAR HEMOGLOBIN 31.2 pg (25.0-35.0); MEAN CORPUSCULAR HGB CONC 31.1 g/dl (31.0-37.0); MEAN PLATELET VOLUME 10.6 fl (7.0-11.0); MONO # 0.7 (0.1-0.6); MONO % 9.7 % (1.0-6.0); RBC 3.49 10^6/uL (3.5-6.1); RED CELL DISTRIBUTION WIDTH 13.7 % (11.5-14.5); WHITE BLOOD COUNT 7.3 10^3/uL (4.5-11.0)
[2018-08-11] MEDS: Valproic Acid 250 mg/5 ml UD Cup PO SCH ×2 (09:57→21:12)
[2018-08-11] MEDS: Enoxaparin 40 mg Syringe SC SCH (09:57)
--- NOTE | 2018-08-11 14:27 | CP.PCM.PN ---
<Cristian Hansen - Last Filed: 08/11/18 15:42> Subjective - Date & Time of Evaluation Date of Evaluation: 08/11/18 Time of Evaluation: 06:30 - Subjective Subjective: Cristian Hansen DO PGY1 Hospitalist Progress Note for Dr Walker Patient seen and examined at bedside. He reports no complaints. No acute events overnight. Tolerating diet with regular BM. Getting better with PT Objective - Vital Signs/Intake and Output Vital Signs (last 24 hours): Temp Pulse Resp BP Pulse Ox 97.9 F 62 18 97/62 L 97 08/11/18 08:04 08/11/18 09:55 08/11/18 08:04 08/11/18 09:55 08/11/18 08:04 Intake and Output: 08/11/18 08/11/18 06:59 18:59 Intake Total 1920 Output Total 1400 Balance 520 - Medications Medications: Current Medications Amiodarone HCl (Cordarone) 200 mg PO Q12H [facility] Last Admin: 08/11/18 06:01 Dose: 200 mg Artificial Tears (Puralube Opht Oint) 1 appl OU Q4H PRN PRN Reason: Dry eyes Artificial Tears (Refresh Opth Soln) 0.3 ml OU Q4H PRN PRN Reason: Dry eyes Last Admin: 08/05/18 10:39 Dose: 1 drop Carvedilol (Coreg) 6.25 mg PO BID [facility] Last Admin: 08/11/18 09:55 Dose: 6.25 mg Enoxaparin Sodium (Lovenox) 40 mg SC DAILY [facility]; Protocol Last Admin: 08/11/18 09:57 Dose: 40 mg Famotidine (Pepcid) 20 mg PO HS [facility] Last Admin: 08/10/18 21:06 Dose: 20 mg Valproate Sodium (Depakene Oral Soln) 1,000 mg PO Q12 [facility] Last Admin: 08/11/18 09:57 Dose: 1,000 mg - Labs Labs: 08/11/18 06:30 08/11/18 06:30 - Additional Findings Additional findings: - Constitutional Appears: Non-toxic, No Acute Distress - Head Exam Head Exam: ATRAUMATIC, NORMOCEPHALIC - Eye Exam Eye Exam: EOMI, PERRL - ENT Exam ENT Exam: Mucous Membranes Moist - Neck Exam Neck Exam: Full ROM, Normal Inspection - Respiratory Exam Respiratory Exam: Clear to Ausculation Bilateral, NORMAL BREATHING PATTERN. absent: Accessory Muscle Use, Rales, Rhonchi, Wheezes, Respiratory Distress - Cardiovascular Exam Cardiovascular Exam: REGULAR RHYTHM, RRR, +S1, +S2. absent: Gallop, Rubs, Murmur - GI/Abdominal Exam GI & Abdominal Exam: Soft, Normal Bowel Sounds. absent: Guarding, Tenderness - Extremities Exam Extremities Exam: Full ROM. absent: Pedal Edema - Back Exam Back Exam: NORMAL INSPECTION - Neurological Exam Neurological Exam: Alert, Awake, Oriented x3 - Psychiatric Exam Psychiatric exam: Normal Affect, Normal Mood - Skin Skin Exam: Dry, Intact, Warm Assessment and Plan - Assessment and Plan (Free Text) Assessment: 48 yo M with no known PMH who presented s/p VFib arrest complicated by severe LV systolic dysfunction. He continued to improve s/p targeted temperature management. s/p AICD placement, Now pending ARGENIS placement. Plan: s/p VFib Arrest/NSTEMI with non ischemic dilated cardiomyopathy -s/p AICD placement -continue coreg, amiodarone -d/c lisinopril -cardiology following Acute Hep B Infection -HbcAb, HbsAg, and HbeAg positive -outpatient treatment recommended at [facility] Resolving encephalopathy in the setting of cardiac arrest -patient is awake, alert, communicating in conversation and answering questions -s/p targeted temperature management, neuro status has been gradually improving since -continue Depakote for seizure prophylaxis -continue avasys (continuous video monitoring) IVDA -UDS positive for opioids and cannabis -counseling provided PPX: -GI: pepcid -DVT: SCD, lovenox -continue PT -ARGENIS recommended, working on placement -dysphagia/modified diet -full Code Case reviewed and paln discussed with attending Dr Aaron Hansen, DO <Carmela Walker R - Last Filed: 08/11/18 16:05> Objective - Vital Signs/Intake and Output Vital Signs (last 24 hours): Temp Pulse Resp BP Pulse Ox 97.9 F 62 18 97/62 L 97 08/11/18 08:04 08/11/18 09:55 08/11/18 08:04 08/11/18 09:55 08/11/18 08:04 Intake and Output: 08/11/18 08/11/18 06:59 18:59 Intake Total 1920 Output Total 1400 Balance 520 - Medications Medications: Current Medications Amiodarone HCl (Cordarone) 200 mg PO Q12H [facility] Last Admin: 08/11/18 06:01 Dose: 200 mg Artificial Tears (Puralube Opht Oint) 1 appl OU Q4H PRN PRN Reason: Dry eyes Artificial Tears (Refresh Opth Soln) 0.3 ml OU Q4H PRN PRN Reason: Dry eyes Last Admin: 08/05/18 10:39 Dose: 1 drop Carvedilol (Coreg) 6.25 mg PO BID [facility] Last Admin: 08/11/18 09:55 Dose: 6.25 mg Enoxaparin Sodium (Lovenox) 40 mg SC DAILY [facility]; Protocol Last Admin: 08/11/18 09:57 Dose: 40 mg Famotidine (Pepcid) 20 mg PO HS [facility] Last Admin: 08/10/18 21:06 Dose: 20 mg Valproate Sodium (Depakene Oral Soln) 1,000 mg PO Q12 [facility] Last Admin: 08/11/18 09:57 Dose: 1,000 mg - Labs Labs: 08/11/18 06:30 08/11/18 06:30 Attending/Attestation - Attestation I have personally seen and examined this patient.: Yes I have fully participated in the care of the patient.: Yes I have reviewed all pertinent clinical information, including history, physical exam and plan: Yes Notes (Text): Patient seen and examined by me with resident at approximately 12PM on 08/11/18. Case including HPI, physical exam, and assessment and plan discussed with resident. Agree with above with following additions/corrections. Patient is a 48 year old male with unknown past medical history that presented t o the emergency room s/p cardiac arrest and ventricular fibrillation on 07/08/18. Patient was transferred to [facility] on 07/28/18 for AICD placement. Patient returned to [facility] on 07/29/18 s/p AICD placement. Patient states he feels ok. States he worked with physical therapy yesterday and today and feels he is doing better. Patient denies chest pain or shortness of breath. No headaches or dizziness. No fevers or chills. No nausea, vomiting, or abdominal pain. No dysuria. Patient is having bowel movements. Physical exam: General: Awake and alert lying in bed in no acute distress HEENT: Normocephalic, atraumatic. Extraocular muscles intact. Pupils equal and reactive, no scleral icterus. Oropharynx is pink. Neck is supple. Cardiovascular: Normal rhythm. Normal S1 and S2. No murmurs, rubs, or gallops appreciated Pulmonary: Normal respiratory effort. No rhonchi, rales, or wheezing appreciated Gastrointestinal: Soft, nondistended. Nontender. Positive bowel sounds all 4 quadrants. No guarding. Musculoskeletal: Moves all extremities. No calf tenderness. No edema appr eciated. Central nervous system: Awake and alert. Follows commands. Aphasia resolving, patient speaking full sentences. Dermatologic: Skin warm and dry. AICD felt under skin left anterior upper chest wall. Assessment and plan: Patient is a 48 year old male with unknown past medical history that presented to the emergency room s/p cardiac arrest and ventricular fibrillation on 07/08/18. Patient was transferred to [facility] on 07/28/18 for AICD placement. Patient returned to [facility] on 07/29/18 s/p AICD placement. 1. Gait instability. Pending ARGENIS. Continue fall precautions. Continue physical therapy as tolerated. 2. S/P V-fib arrest. NSTEMI. Nonischemic dilated cardiomyopathy. S/P AICD placement. Continue amiodarone 200mg PO q12. Continue Coreg. Lisinopril stopped. No ASA per industrial controls technician. Cardiology recommendations appreciated. Pending ARGENIS placement. 3. S/P acute anoxic encephalopathy. Speech continues to improve. Continue Depakote for seizure prophylaxis. Continue supportive care. Speech and swallow following. Continue physical therapy. Pending ARGENIS placement 4. Fall. Continue Avasys. Continue fall precautions. Continue physical therapy. ARGENIS pending. Pelvic xray per radiologist showed negative study. 5. Hepatitis B infection. Patient will need to follow up outpatient with the [facility] for further work up and treatment. 6. Drug abuse. Urine drug screen at initial admission positive for opioids and cannabinoids. Patient counseled on cessation. 7. GI/DVT prophylaxis. Pepcid/Lovenox. 8. Dipso. Awaiting ARGENIS. Case was discussed in detail with the patient regarding current diagnosis and treatment plan. All questions answered.
[2018-08-12 07:18] LABS: BASO # 0.03 K/mm3 (0.0-2.0); BASO % 0.4 % (0.0-3.0); EOS # 0.3 (0.0-0.7); EOS % 3.6 % (1.5-5.0); HEMOGLOBIN 10.9 g/dL (14.0-18.0); LYMPH # 1.9 (1.2-3.4); LYMPH % 25.8 % (22.0-35.0); MEAN CELL VOLUME 100.6 fl (80.0-105.0); MEAN CORPUSCULAR HEMOGLOBIN 31.1 pg (25.0-35.0); MEAN PLATELET VOLUME 10.3 fl (7.0-11.0); MONO # 0.7 (0.1-0.6); MONO % 9.5 % (1.0-6.0); RBC 3.5 10^6/uL (3.5-6.1); RED CELL DISTRIBUTION WIDTH 13.6 % (11.5-14.5); WHITE BLOOD COUNT 7.2 10^3/uL (4.5-11.0)
[2018-08-12 07:28] LABS: ALB/GLOB RATIO 1.2 (1.1-1.8); ALBUMIN 3.5 g/dL (3.0-4.8); ALT/SGPT 36 U/L (7-56); AST/SGOT 31 U/L (17-59); BLOOD UREA NITROGEN 28 mg/dL (7-21); CALCIUM 9.1 mg/dL (8.4-10.5); GFR NON-AFRICAN AMERICAN > 60
--- NOTE | 2018-08-12 09:15 | CP.PCM.PN ---
<Carrie Sprague - Last Filed: 08/12/18 16:39> Subjective - Date & Time of Evaluation Date of Evaluation: 08/12/18 Time of Evaluation: 09:15 - Subjective Subjective: Carrie Sprague, PGY2, IM Progress Note for Dr Elayne Walker: Patient seen and examined at bedside. No acute events overnight. Patient reports doing well, tolerating PO diet well. Patient states that he is ambulating well with PT using a walker. Denies cp, sob, nausea, vomiting, fevers, chills, abdominal pain, urinary symptoms, exertional dyspnea. Objective - Vital Signs/Intake and Output Vital Signs (last 24 hours): Temp Pulse Resp BP Pulse Ox 97.8 F 61 18 103/66 99 08/12/18 08:09 08/12/18 08:09 08/12/18 08:09 08/12/18 08:09 08/12/18 08:09 Intake and Output: 08/12/18 08/12/18 06:59 18:59 Intake Total 1920 Balance 1920 - Medications Medications: Current Medications Amiodarone HCl (Cordarone) 200 mg PO Q12H [facility] Last Admin: 08/12/18 05:34 Dose: 200 mg Artificial Tears (Puralube Opht Oint) 1 appl OU Q4H PRN PRN Reason: Dry eyes Artificial Tears (Refresh Opth Soln) 0.3 ml OU Q4H PRN PRN Reason: Dry eyes Last Admin: 08/05/18 10:39 Dose: 1 drop Carvedilol (Coreg) 6.25 mg PO BID [facility] Last Admin: 08/11/18 18:37 Dose: Not Given Enoxaparin Sodium (Lovenox) 40 mg SC DAILY [facility]; Protocol Last Admin: 08/11/18 09:57 Dose: 40 mg Famotidine (Pepcid) 20 mg PO HS [facility] Last Admin: 08/11/18 21:13 Dose: 20 mg Sodium Polystyrene Sulfonate (Kayexalate) 15 gm PO ONCE ONE Stop: 08/12/18 09:16 Valproate Sodium (Depakene Oral Soln) 1,000 mg PO Q12 [facility] Last Admin: 08/11/18 21:12 Dose: 1,000 mg - Labs Labs: 08/12/18 07:00 05/21/19 07:00 - Constitutional Appears: Non-toxic, No Acute Distress - Head Exam Head Exam: ATRAUMATIC, NORMOCEPHALIC - Eye Exam Eye Exam: EOMI, PERRL. absent: Conjunctival injection, Nystagmus, Scleral icterus Pupil Exam: NORMAL ACCOMODATION, PERRL. absent: Irregular, Miosis, Unequal - ENT Exam ENT Exam: Mucous Membranes Moist - Neck Exam Neck Exam: Full ROM - Respiratory Exam Respiratory Exam: Clear to Ausculation Bilateral, NORMAL BREATHING PATTERN. absent: Accessory Muscle Use, Chest Wall Tenderness, Rhonchi, Wheezes - Cardiovascular Exam Cardiovascular Exam: RRR, +S1, +S2. absent: Murmur Additional comments: + AICD in place - GI/Abdominal Exam GI & Abdominal Exam: Soft, Normal Bowel Sounds. absent: Guarding, Rigid, Tenderness, Mass, Organomegaly, Rebound - Extremities Exam Extremities Exam: Normal Inspection. absent: Calf Tenderness, Pedal Edema - Back Exam Back Exam: NORMAL INSPECTION. absent: CVA tenderness (L), CVA tenderness (R) - Neurological Exam Neurological Exam: Alert, Awake, Oriented x3 - Psychiatric Exam Psychiatric exam: Normal Affect - Skin Skin Exam: Dry, Normal Color, Warm Assessment and Plan - Assessment and Plan (Free Text) Assessment: This is a 48 year old male, here for Vfib arrest s/p ROSC, complicated by severe sepsis 2/2 aspiration pneumonia, severe LV systolic dysfunction requiring AICD placement. Patient is currently stable, on appropriate cardiac medication as per Cardio, awaiting placement: Mild Hyperkalemia: - K 5.2. Given kayexalate 15 gm PO x1. will monitor. S/p AICD for non-ischemic cardiomyopathy: - s/p vfib arrest/NSTEMI - Cardio on board, appreciate recs. - Continue with coreg 6.125 mg BID, amiodarone 200 mg PO BID - Continue to monitor. Hepatitis B infection: - Hep B core Ab, HBsAg, HBeAg positive - Patient will pursue outpatient treatment at [facility] in setting of underlying metabolic derangements, resolving: - Patient awake, alert, oriented x3 - Continue Depakote for seizure prophylaxis. - Monitor S/p fall: - can continue Avasys for now. But patient more stable as per PT, who is recommending home with services. Drug abuse: - UDS positive for opiates and cannabinoids. - Counseling provided on cessation, patient verbalizes understanding. Dispo: PT recommending home with services OT if not available, d/c home with family support, assistance and supervision. Spoke with sister, Jessica Denson, who lives in [place] and does not drive. Sister requests that her aunt in [place] knot picker cloth patient and transport to [place]. Aunt's phone # is [phone]. Information communicated with social service worker. Will follow up. GI Ppx: Pepcid DVT PPX: lovenox Case seen and discussed with Dr Elayne Walker. <Carmela Walker R - Last Filed: 08/12/18 21:33> Objective - Vital Signs/Intake and Output Vital Signs (last 24 hours): Temp Pulse Resp BP Pulse Ox 98 F 70 18 90/66 L 99 08/12/18 16:19 08/12/18 18:11 08/12/18 16:19 08/12/18 18:11 08/12/18 16:19 - Medications Medications: Current Medications Amiodarone HCl (Cordarone) 200 mg PO Q12H [facility] Last Admin: 08/12/18 18:10 Dose: 200 mg Artificial Tears (Puralube Opht Oint) 1 appl OU Q4H PRN PRN Reason: Dry eyes Artificial Tears (Refresh Opth Soln) 0.3 ml OU Q4H PRN PRN Reason: Dry eyes Last Admin: 08/05/18 10:39 Dose: 1 drop Carvedilol (Coreg) 6.25 mg PO BID [facility] Last Admin: 08/12/18 18:11 Dose: Not Given Enoxaparin Sodium (Lovenox) 40 mg SC DAILY [facility]; Protocol Last Admin: 08/12/18 11:39 Dose: 40 mg Famotidine (Pepcid) 20 mg PO HS [facility] Last Admin: 08/11/18 21:13 Dose: 20 mg Valproate Sodium (Depakene Oral Soln) 1,000 mg PO Q12 [facility] Last Admin: 08/12/18 11:39 Dose: 1,000 mg - Labs Labs: 08/12/18 07:00 08/12/18 07:00 Attending/Attestation - Attestation I have personally seen and examined this patient.: Yes I have fully participated in the care of the patient.: Yes I have reviewed all pertinent clinical information, including history, physical exam and plan: Yes Notes (Text): Patient seen and examined by me with resident at approximately 9:35AM on 08/12/18. Case including HPI, physical exam, and assessment and plan discussed with resident. Agree with above with following additions/corrections. Patient states he is feeling pretty good. States he has been walking with a walker with physical therapy. Patient states that he did have a little trouble with stairs yesterday. Patient denies chest pain or shortness of breath. No headaches or dizziness. No fevers or chills. No nausea, vomiting, or abdominal pain. No dysuria. Patient is having bowel movements. Physical exam: General: Awake and alert lying in bed in no acute distress HEENT: Normocephalic, atraumatic. Extraocular muscles intact. Pupils equal and reactive, no scleral icterus. Oropharynx is pink. Neck is supple. Cardiovascular: Normal rhythm. Normal S1 and S2. No murmurs, rubs, or gallops appreciated Pulmonary: Normal respiratory effort. No rhonchi, rales, or wheezing appreciated Gastrointestinal: Soft, nondistended. Nontender. Positive bowel sounds all 4 quadrants. No guarding. Musculoskeletal: Moves all extremities. No calf tenderness. No edema appreciated. Central nervous system: Awake and alert. Follows commands. Aphasia resolved, speaks in full sentences. Dermatologic: Skin warm and dry. AICD felt under skin left anterior upper chest wall. Assessment and plan: Patient is a 48 year old male with unknown past medical history that presented to the emergency room s/p cardiac arrest and ventricular fibrillation on 07/08/18. Patient was transferred to [facility] on 07/28/18 for AICD placement. Patient returned to [facility] on 07/29/18 s/p AICD placement. 1. Gait instability. Per PT, home with services. Working with family for discha rge planning. Continue PT. Continue fall precautions. 2. S/P V-fib arrest. NSTEMI. Nonischemic dilated cardiomyopathy. S/P AICD placement. Continue amiodarone 200mg PO q12. Continue Coreg. No ASA per cast iron drain pipe layer. Cardiology recommendations appreciated. 3. S/P acute anoxic encephalopathy. Aphasia resolved. Continue Depakote for seizure prophylaxis. Continue supportive care. Continue physical therapy. 4. Fall. Continue Avasys. Continue fall precautions. Continue physical therapy. 5. Hepatitis B infection. Patient will need to follow up outpatient with [facility] for further work up and treatment. 6. Drug abuse. Urine drug screen at initial admission positivefor opioids and cannabinoids. Patient counseled on cessation. 7. GI/DVT prophylaxis. Pepcid/Lovenox. 8. Dipso. Discharge planning for home with services Case was discussed in detail with the patient regarding current diagnosis and treatment plan. All questions answered.
[2018-08-12] MEDS: Enoxaparin 40 mg Syringe SC SCH (11:39)
[2018-08-12] MEDS: Valproic Acid 250 mg/5 ml UD Cup PO SCH ×2 (11:39→22:03)
--- NOTE | 2018-08-12 16:47 | PN ---
DATE: 08/12/2018 CARDIOLOGY FOLLOWUP SUBJECTIVE: The patient is without distress. PHYSICAL EXAMINATION: VITAL SIGNS: Blood pressure 103/69, heart rates in the 60s. NECK: Negative JVD. LUNGS: Without rales. HEART: S1, S2. EXTREMITIES: Without edema. IMPRESSION: 1. Ventricular fibrillation arrest. 2. Anoxic encephalopathy. 3. Anemia. 4. BUN and creatinine are unremarkable. PLAN: Given these findings, the patient has been denied fci facility due to his insurance. The patient is improving with physical therapy. I had a discussion with Dr. Walker, who has some hope that the patient may become strong enough and independent enough for discharge. Kelby Guerrero MD
[2018-08-13] MEDS: Valproic Acid 250 mg/5 ml UD Cup PO SCH ×2 (10:11→21:43)
[2018-08-13] MEDS: Enoxaparin 40 mg Syringe SC SCH (10:11)
--- NOTE | 2018-08-13 14:40 | CP.PCM.PN ---
<Cristian Hansen - Last Filed: 08/13/18 14:37> Subjective - Date & Time of Evaluation Date of Evaluation: 08/13/18 Time of Evaluation: 06:10 - Subjective Subjective: Cristian Hansen DO PGY1 Hospitalist Progress Note for Dr Garcia Patient seen and examined at bedside. He is out of bed , tolerating regular diet. Denies CP, SOB, fever, chills. Objective - Vital Signs/Intake and Output Vital Signs (last 24 hours): Temp Pulse Resp BP Pulse Ox 98.2 F 70 20 99/63 L 97 08/13/18 06:00 08/13/18 10:10 08/13/18 06:00 08/13/18 10:10 08/13/18 06:00 Intake and Output: 08/13/18 08/13/18 06:59 18:59 Intake Total 2000 380 Output Total 1400 Balance 600 380 - Medications Medications: Current Medications Amiodarone HCl (Cordarone) 200 mg PO Q12H [facility] Last Admin: 08/13/18 06:29 Dose: 200 mg Artificial Tears (Puralube Opht Oint) 1 appl OU Q4H PRN PRN Reason: Dry eyes Artificial Tears (Refresh Opth Soln) 0.3 ml OU Q4H PRN PRN Reason: Dry eyes Last Admin: 08/05/18 10:39 Dose: 1 drop Carvedilol (Coreg) 6.25 mg PO BID [facility] Last Admin: 08/13/18 10:10 Dose: 6.25 mg Enoxaparin Sodium (Lovenox) 40 mg SC DAILY [facility]; Protocol Last Admin: 08/13/18 10:11 Dose: 40 mg Famotidine (Pepcid) 20 mg PO HS [facility] Last Admin: 08/12/18 22:05 Dose: 20 mg Valproate Sodium (Depakene Oral Soln) 500 mg PO Q12 [facility] - Labs Labs: 08/12/18 07:00 08/12/18 07:00 - Additional Findings Additional findings: - Constitutional Appears: Non-toxic, No Acute Distress - Head Exam Head Exam: ATRAUMATIC, NORMOCEPHALIC - Eye Exam Eye Exam: EOMI, PERRL - ENT Exam ENT Exam: Mucous Membranes Moist - Neck Exam Neck Exam: Full ROM, Normal Inspection - Respiratory Exam Respiratory Exam: Clear to Ausculation Bilateral, NORMAL BREATHING PATTERN. absent: Accessory Muscle Use, Rales, Rhonchi, Wheezes, Respiratory Distress - Cardiovascular Exam Cardiovascular Exam: REGULAR RHYTHM, RRR, +S1, +S2. absent: Gallop, Rubs, Murmur - GI/Abdominal Exam GI & Abdominal Exam: Soft, Normal Bowel Sounds. absent: Guarding, Tenderness - Extremities Exam Extremities Exam: Full ROM. absent: Pedal Edema - Back Exam Back Exam: NORMAL INSPECTION - Neurological Exam Neurological Exam: Alert, Awake, Oriented x3 - Psychiatric Exam Psychiatric exam: Normal Affect, Normal Mood - Skin Skin Exam: Dry, Intact, Warm Assessment and Plan - Assessment and Plan (Free Text) Assessment: 48 yo M with no known PMH who presented s/p VFib arrest complicated by severe LV systolic dysfunction s/p AICD. Plan: s/p VFib Arrest/NSTEMI with non ischemic dilated cardiomyopathy -s/p AICD placement -continue coreg, amiodarone -cardiology following, Dr Guerrero Acute Hep B Infection -hepatitis B positive -outpatient f/u recommended at Resolving encephalopathy in the setting of cardiac arrest -patient is awake, alert, communicating in conversation and answering questions -continue Depakote for seizure prophylaxis IVDA -UDS positive for opioids and cannabis -counseling provided PPX: -GI: pepcid -DVT: SCD, lovenox -continue PT -home discharge. Patient is waiting for aunt for picker packer tomorrow -dysphagia/modified diet -full Code Case reviewed and paln discussed with attending Dr Radha Hansen, <Brayden Garcia - Last Filed: 08/13/18 17:28> Objective - Vital Signs/Intake and Output Vital Signs (last 24 hours): Temp Pulse Resp BP Pulse Ox 98.4 F 74 18 110/72 98 08/13/18 16:26 08/13/18 16:26 08/13/18 16:26 08/13/18 16:26 08/13/18 16:26 Intake and Output: 08/13/18 08/13/18 06:59 18:59 Intake Total 2000 380 Output Total 1400 Balance 600 380 - Medications Medications: Current Medications Amiodarone HCl (Cordarone) 200 mg PO Q12H [facility] Last Admin: 08/13/18 06:29 Dose: 200 mg Artificial Tears (Puralube Opht Oint) 1 appl OU Q4H PRN PRN Reason: Dry eyes Artificial Tears (Refresh Opth Soln) 0.3 ml OU Q4H PRN PRN Reason: Dry eyes Last Admin: 08/05/18 10:39 Dose: 1 drop Carvedilol (Coreg) 6.25 mg PO BID [facility] Last Admin: 08/13/18 10:10 Dose: 6.25 mg Enoxaparin Sodium (Lovenox) 40 mg SC DAILY [facility]; Protocol Last Admin: 08/13/18 10:11 Dose: 40 mg Famotidine (Pepcid) 20 mg PO HS [facility] Last Admin: 08/12/18 22:05 Dose: 20 mg Valproate Sodium (Depakene Oral Soln) 500 mg PO Q12 [facility] - Labs Labs: 08/12/18 07:00 08/12/18 07:00 Attending/Attestation - Attestation I have personally seen and examined this patient.: Yes I have fully participated in the care of the patient.: Yes I have reviewed all pertinent clinical information, including history, physical exam and plan: Yes Notes (Text): Attending note: Patient seen and examined with resident. Patient is alert and awake. Not in distress. Patient is a 48 year old male with unknown past medical history that presented to the emergency room s/p cardiac arrest and ventricular fibrillation on 07/08/18. Patient was transferred to [facility] on 07/28/18 for AICD placement. Patient returned to on 07/29/18 s/p AICD placement. 1. Gait instability. physical therapy evaluation appreciated. Home with services recommended. case discussed with patient's sister and aunt. possible discharge home tomorrow with Aunt. 2. S/P V-fib arrest. NSTEMI. Nonischemic dilated cardiomyopathy. S/P AICD placement. Continue amiodarone 200mg PO q12. Continue Coreg. Lisinopril stopped. Cardiology recommendations appreciated. 3. S/P acute anoxic encephalopathy. Speech continues to improve. Continue Depakote for seizure prophylaxis. Continue supportive care. 4. Hepatitis B infection. Patient will need to follow up outpatient with [facility] for further work up and treatment. 5. Drug abuse. Urine drug screen at initial admission positive for opioids and cannabinoids. Patient counseled on cessation. Case was discussed in detail with the patient regarding current diagnosis and treatment plan. All questions answered. agreed with the discharge plan. patient will be [facility] up with [facility] [place] upon discharge. 08/13/18 17:28
[2018-08-14 07:05] LABS: BASO # 0.02 K/mm3 (0.0-2.0); BASO % 0.3 % (0.0-3.0); EOS # 0.2 (0.0-0.7); EOS % 2.8 % (1.5-5.0); HEMOGLOBIN 11.2 g/dL (14.0-18.0); LYMPH # 1.7 (1.2-3.4); MEAN PLATELET VOLUME 10.2 fl (7.0-11.0); MONO % 12.7 % (1.0-6.0); RBC 3.5 10^6/uL (3.5-6.1); RED CELL DISTRIBUTION WIDTH 13.6 % (11.5-14.5); WHITE BLOOD COUNT 7.6 10^3/uL (4.5-11.0)
[2018-08-14 08:13] LABS: ALB/GLOB RATIO 1.1 (1.1-1.8); ALBUMIN 3.4 g/dL (3.0-4.8); ALT/SGPT 37 U/L (7-56); AST/SGOT 40 U/L (17-59); BLOOD UREA NITROGEN 24 mg/dL (7-21); CALCIUM 9.1 mg/dL (8.4-10.5); GFR NON-AFRICAN AMERICAN > 60
[2018-08-14] MEDS ORDERED: Dextrose 50% SYRINGE Inj (50 ml) IVP ONE (08:39)
[2018-08-14] MEDS ORDERED: Insulin Regular 1 UNITS/0.01 ML ML IVP STA (08:39)
[2018-08-14] MEDS ORDERED: Albuterol 0.083% Inhal Sol (2.5 mg/3 mL) UD INH STA (09:19)
[2018-08-14] MEDS: Valproic Acid 250 mg/5 ml UD Cup PO SCH ×2 (09:47→21:08)
[2018-08-14] MEDS: Enoxaparin 40 mg Syringe SC SCH (09:48)
--- NOTE | 2018-08-14 09:53 | CARD ---
APPROVED REPORT Date of service: 08/14/2018 EKG Measurement Heart [id number] <Conclusion> Normal sinus rhythm Left axis deviation RSR' or QR pattern in V1 suggests right ventricular conduction delay ST-T Changes. Abnormal ECG
[2018-08-14 12:51] LABS: BLOOD UREA NITROGEN 20 mg/dL (7-21); GFR NON-AFRICAN AMERICAN > 60
[2018-08-14] MEDS ORDERED: Dextrose 50% SYRINGE Inj (50 ml) IV STA (12:56)
--- NOTE | 2018-08-14 13:17 | PN ---
DATE: 08/14/2018 SUBJECTIVE: The patient is ambulating. He is awake and alert. No shortness of breath. PHYSICAL EXAMINATION: VITAL SIGNS: Blood pressure was 113/66, heart rate is in the 60s. NECK: Negative JVD. LUNGS: Without rales. HEART: S1, S2. EXTREMITIES: Without edema. LABORATORY DATA: Potassium is 5.7 today. Creatinine is 1. The hemoglobin is 11.2. IMPRESSION: 1. Status post ventricular fibrillation arrest. 2. Dilated cardiomyopathy. 3. Anoxic encephalopathy which the patient is better. 4. Unremarkable coronary arteries. PLAN: Given these findings, the patient's potassium is being treated today. We will discontinue his SYLWIA inhibitor. Once the potassium is better, the patient is okay for discharge. Kelby Guerrero MD
--- NOTE | 2018-08-14 14:14 | CP.PCM.DIS ---
Provider - Provider Date of Admission: 07/29/18 18:25 Attending physician: Brayden Garcia MD Primary care physician: Wali Scott MD Consults: 07/29/18 19:23 Physician Consult Routine Comment: Consulting Provider: Kelby Guerrero Consulting Physician: Kelby Guerrero Reason for Consult: severe non-ischemic cardiomyopathy w/ reduced EF s/p AICD 07/29/18 19:53 Social Work Referral Routine Comment: [place] risk assessment score. Physician Instructions: Reason For Exam: Protocol 07/30/18 06:11 Nursing Referral for Wound Care Routine Comment: stage II in between buttocks. Physician Instructions: Reason For Exam: protocol 08/11/18 09:01 Nursing Referral for Wound Care Routine Comment: Physician Instructions: Reason For Exam: stage 2 gluteal fold Time Spent in preparation of Discharge (in minutes): 45 Hospital Course - Lab Results Lab Results: Most Recent Lab Values WBC 7.6 10^3/uL (4.5-11.0) 08/14/18 06:30 RBC 3.50 10^6/uL (3.5-6.1) 08/14/18 06:30 Hgb 11.2 g/dL (14.0-18.0) L 08/14/18 06:30 Hct 35.0 % (42.0-52.0) L 08/14/18 06:30 MCV 100.0 fl (80.0-105.0) 08/14/18 06:30 MCH 32.0 pg (25.0-35.0) 08/14/18 06:30 MCHC 32.0 g/dl (31.0-37.0) 08/14/18 06:30 RDW 13.6 % (11.5-14.5) 08/14/18 06:30 Plt Count 131 10^3/uL (120.0-450.0) 08/14/18 06:30 MPV 10.2 fl (7.0-11.0) 08/14/18 06:30 Neut % (Auto) 62.2 % (50.0-68.0) 08/14/18 06:30 Lymph % (Auto) 22.0 % (22.0-35.0) 08/14/18 06:30 [place] % (Auto) 12.7 % (1.0-6.0) H 08/14/18 06:30 Eos % (Auto) 2.8 % (1.5-5.0) 08/14/18 06:30 Baso % (Auto) 0.3 % (0.0-3.0) 08/14/18 06:30 Lymph # (Auto) 1.7 (1.2-3.4) 08/14/18 06:30 [place] # (Auto) 1.0 (0.1-0.6) H 08/14/18 06:30 Eos # (Auto) 0.2 (0.0-0.7) 08/14/18 06:30 Baso # (Auto) 0.02 K/mm3 (0.0-2.0) 08/14/18 06:30 Absolute Neuts (auto) 4.72 (1.4-6.5) 08/14/18 06:30 Sodium 139 mmol/L (132-148) 08/14/18 12:00 Potassium 4.6 mmol/L (3.6-5.0) 08/14/18 12:00 Chloride 100 mmol/L (98-107) 08/14/18 12:00 Carbon Dioxide 33 mmol/L (21-33) 08/14/18 12:00 Anion Gap 11 (10-20) 08/14/18 12:00 BUN 20 mg/dL (7-21) 08/14/18 12:00 Creatinine 0.9 mg/dl (0.8-1.5) 08/14/18 12:00 Est GFR ( Amer) > 60 08/14/18 12:00 Est GFR (Non-Af Amer) > 60 08/14/18 12:00 POC Glucose (mg/dL) 100 mg/dL (65-110) 08/14/18 12:54 Random Glucose 35 mg/dL (70-110) L* D 08/14/18 12:00 Calcium 9.0 mg/dL (8.4-10.5) 08/14/18 12:00 Phosphorus 4.0 mg/dL (2.5-4.5) 07/30/18 06:20 Magnesium 2.1 mg/dL (1.7-2.2) 07/30/18 06:20 Total Bilirubin 0.3 mg/dL (0.2-1.3) 08/14/18 06:30 AST 40 U/L (17-59) 08/14/18 06:30 ALT 37 U/L (7-56) 08/14/18 06:30 Alkaline Phosphatase 65 U/L (38-126) 08/14/18 06:30 Total Protein 6.4 g/dL (5.8-8.3) 08/14/18 06:30 Albumin 3.4 g/dL (3.0-4.8) 08/14/18 06:30 Globulin 3.0 gm/dL 08/14/18 06:30 Albumin/Globulin Ratio 1.1 (1.1-1.8) 08/14/18 06:30 - Hospital Course Hospital Course: 48 year old male with unknown PMH that was initially admitted for VFIB cardiac arrest and s/p ROSC with subsequent targeted temperature management. He was dilated non obstructive cardiomyopathy with EF of 25-30% went to at [facility] for AICD placement then came back to [facility] for further medical management. Patient was followed by cariologist Dr Guerrero who recommended carvedilol 12.5mg, lisinopril 5mg and amiodarone 200mg. Patient was followed by PT with daily progession in hpysical activity. His mental status continued to improve overtime during hospital stay. Patient has Hepatitis B infection and was recommeded to follow up with hepatology outpatient clinic at [facility]. On discharge, cardiology recommended to continue on coreg and amiodarone given VFIB diagnosis. Patient was followed by neurology who recommended to continue valproic acid for seizure prophylaxis. Today, patient is hemodynamically stable, afebrile, physical activity and mental status significantly improved. He is clinically stable for discharge home today. Additional discharge instructions as below. Discharge Exam - Head Exam Head Exam: ATRAUMATIC, NORMOCEPHALIC - Eye Exam Eye Exam: EOMI, Normal appearance - ENT Exam ENT Exam: Normal Exam - Neck Exam Neck exam: Normal Inspection - Respiratory Exam Respiratory Exam: Clear to PA & Lateral, NORMAL BREATHING PATTERN - Cardiovascular Exam Cardiovascular Exam: REGULAR RHYTHM, +S1, +S2 - GI/Abdominal Exam GI & Abdominal Exam: Normal Bowel Sounds, Soft - Extremities Exam Extremities exam: normal capillary refill, pedal pulses present - Back Exam Back exam: FULL ROM - Neurological Exam Neurological exam: Alert, CN II-XII Intact, Oriented x3 - Psychiatric Exam Psychiatric exam: Normal Affect, Normal Mood - Skin Skin Exam: Dry, Intact, Normal Color, Warm Discharge Plan - Discharge Medications Prescriptions: Amiodarone [Cordarone] 200 mg PO BID #60 tab Carvedilol [Coreg] 6.25 mg PO BID 30 Days #60 tab Valproic Acid (As Sodium Salt) [Valproic Acid] 500 mg PO BID #28 solution - Follow Up Plan Condition: GOOD Disposition: HOME/ ROUTINE Additional Instructions: Please follow up with your primary care doctor within one week. You may also follow up with Dr. Montemayor at the [facility] located in the [facility] for an appointment scheduled for August 28, 2018 at 2:30 pm to establish care with primary care doctor and for post hospital follow up. You also need to follow up with an continuous yarn dyeing machine operator within one week, the name of the one you were seen by has been provided. You will need close monitoring secondary to the defibrillator that was placed. Please follow up with a research animal attendant within one week, the name of the one you were seen by has been provided. Take the medications as prescribed. We have given you a month supply of medications, please follow up with your primary care doctor or Dr. Montemayor at the [facility] to get refills. Please continue valproic acid (prescription provided), please discuss with your primary care doctor or Dr. Montemayor at the [facility] about the need for continued use of this medication. Please abstain from drugs. Please return to the emergency room if symptoms return of you experience new concerning symptoms. Referrals: [facility] at [facility] [Outside] Wali Scott MD [Primary Care Provider] - Michael Neff MD [Medical Doctor] - Kelby Guerrero MD [Staff Provider] -
--- NOTE | 2018-08-15 07:24 | CP.PCM.PN ---
<Cristian Hansen - Last Filed: 08/15/18 11:56> Subjective - Date & Time of Evaluation Date of Evaluation: 08/14/18 Time of Evaluation: 06:20 - Subjective Subjective: Cristian Hansen DO PGY1 Hospitalist Progress Note for Dr Walkre Patient seen and examined at bedside. He is tolerating regular diet, ambulating OOB. Denies CP, SOB, fever, chills, abdominal pain Objective - Vital Signs/Intake and Output Vital Signs (last 24 hours): Temp Pulse Resp BP Pulse Ox 97.8 F 58 L 20 103/69 100 08/14/18 08:28 08/15/18 06:22 08/14/18 08:28 08/15/18 06:22 08/14/18 08:28 Intake and Output: 08/15/18 08/15/18 06:59 18:59 Intake Total 1020 Output Total 2000 Balance -980 - Medications Medications: Current Medications Amiodarone HCl (Cordarone) 200 mg PO Q12H [facility] Last Admin: 08/15/18 06:22 Dose: 200 mg Artificial Tears (Puralube Opht Oint) 1 appl OU Q4H PRN PRN Reason: Dry eyes Artificial Tears (Refresh Opth Soln) 0.3 ml OU Q4H PRN PRN Reason: Dry eyes Last Admin: 08/05/18 10:39 Dose: 1 drop Carvedilol (Coreg) 6.25 mg PO BID [facility] Last Admin: 08/14/18 17:46 Dose: 6.25 mg Enoxaparin Sodium (Lovenox) 40 mg SC DAILY [facility]; Protocol Last Admin: 08/14/18 09:48 Dose: 40 mg Famotidine (Pepcid) 20 mg PO HS [facility] Last Admin: 08/14/18 21:07 Dose: 20 mg Valproate Sodium (Depakene Oral Soln) 500 mg PO Q12 [facility] Last Admin: 08/14/18 21:08 Dose: 500 mg - Labs Labs: 08/14/18 06:30 08/14/18 12:00 - Additional Findings Additional findings: - Constitutional Appears: Non-toxic, No Acute Distress - Head Exam Head Exam: ATRAUMATIC, NORMOCEPHALIC - Eye Exam Eye Exam: EOMI, PERRL - ENT Exam ENT Exam: Mucous Membranes Moist - Neck Exam Neck Exam: Full ROM, Normal Inspection - Respiratory Exam Respiratory Exam: Clear to Ausculation Bilateral, NORMAL BREATHING PATTERN. ab sent: Accessory Muscle Use, Rales, Rhonchi, Wheezes, Respiratory Distress - Cardiovascular Exam Cardiovascular Exam: REGULAR RHYTHM, RRR, +S1, +S2. absent: Gallop, Rubs, Murmur - GI/Abdominal Exam GI & Abdominal Exam: Soft, Normal Bowel Sounds. absent: Guarding, Tenderness - Extremities Exam Extremities Exam: Full ROM. absent: Pedal Edema - Back Exam Back Exam: NORMAL INSPECTION - Neurological Exam Neurological Exam: Alert, Awake, Oriented x3 - Psychiatric Exam Psychiatric exam: Normal Affect, Normal Mood - Skin Skin Exam: Dry, Intact, Warm Assessment and Plan - Assessment and Plan (Free Text) Assessment: 48 yo M with no known PMH who presented s/p VFib arrest complicated by severe LV systolic dysfunction s/p AICD. s/p encephalopathy that's resolving Plan: Hperkalemia: -K 5.7 , patient asymptomatic, stable vitals -EKG was done and showed no significant changes compared to previous one -kayexalate, insulin, D50 given -repeat lab in pm K was 4.6 s/p VFib Arrest/NSTEMI with non ischemic dilated cardiomyopathy -s/p AICD placement -continue coreg, amiodarone as per cardio -outpatient f/u with cardiac dental hygienist mobile coordinator recommended -cardiology following, Dr Guerrero Resolving encephalopathy in the setting of cardiac arrest -patient is awake, alert, communicating in conversation and answering questions -continue Depakote for seizure prophylaxis -outpatient f/u with neurology recommended IVDA -UDS positive for opioids and cannabinoid -counseling provided on cessation Acute Hep B Infection -hepatitis B positive -outpatient f/u recommended at PPX: -GI: pepcid -DVT: SCD, lovenox -continue PT -home discharge. 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 school social worker on board -dysphagia/modified diet -full Code Case reviewed and plan discussed with attending Dr Aaron Hansen, <Carmela Walker R - Last Filed: 08/15/18 14:59> Objective - Vital Signs/Intake and Output Vital Signs (last 24 hours): Temp Pulse Resp BP Pulse Ox 98 F 60 20 93/53 L 98 08/15/18 08:00 08/15/18 10:57 08/15/18 08:00 08/15/18 10:57 08/15/18 08:00 Intake and Output: 08/15/18 08/15/18 06:59 18:59 Intake Total 1020 Output Total 1999 Balance -980 - Medications Medications: Current Medications Amiodarone HCl (Cordarone) 200 mg PO Q12H [facility] Last Admin: 08/15/18 06:22 Dose: 200 mg Artificial Tears (Puralube Opht Oint) 1 appl OU Q4H PRN PRN Reason: Dry eyes Artificial Tears (Refresh Opth Soln) 0.3 ml OU Q4H PRN PRN Reason: Dry eyes Last Admin: 08/05/18 10:39 Dose: 1 drop Carvedilol (Coreg) 6.25 mg PO BID [facility] Last Admin: 08/15/18 10:57 Dose: 6.25 mg Enoxaparin Sodium (Lovenox) 40 mg SC DAILY [facility]; Protocol Last Admin: 08/15/18 10:58 Dose: 40 mg Famotidine (Pepcid) 20 mg PO HS [facility] Last Admin: 08/14/18 21:07 Dose: 20 mg Valproate Sodium (Depakene Oral Soln) 500 mg PO Q12 [facility] Last Admin: 08/15/18 10:58 Dose: 500 mg - Labs Labs: 08/14/18 06:30 08/14/18 12:00 Attending/Attestation - Attestation I have personally seen and examined this patient.: Yes I have fully participated in the care of the patient.: Yes I have reviewed all pertinent clinical information, including history, physical exam and plan: Yes Notes (Text): Patient seen and examined by me with resident at approximately 10:30AM on 08/14/18. Case including HPI, physical exam, and assessment and plan discussed with resident. Agree with above with following additions/corrections. Patient states he is feels good. Patient is ready to go home. Patient's family is suppose to pick patient up today. Patient was cleared for discharge by physical therapist. Patient denies chest pain or shortness of breath. No headaches or dizziness. No fevers or chills. No nausea, vomiting, or abdominal pain. No dysuria. Patient is having bowel movements. Physical exam: General: Awake and alert lying in bed in no acute distress HEENT: Normocephalic, atraumatic. Extraocular muscles intact. Pupils equal and reactive, no scleral icterus. Oropharynx is pink. Neck is supple. Cardiovascular: Normal rhythm. Normal S1 and S2. No murmurs, rubs, or gallops appreciated Pulmonary: Normal respiratory effort. No rhonchi, rales, or wheezing appreciated Gastrointestinal: Soft, nondistended. Nontender. Positive bowel sounds all 4 quadrants. No guarding. Musculoskeletal: Moves all extremities. No calf tenderness. No edema appreciated. Central nervous system: Awake and alert. Follows commands. Aphasia resolved, speaks in full sentences. Dermatologic: Skin warm and dry. AICD felt under skin left anterior upper chest wall. Assessment and plan: Patient is a 48 year old male with unknown past medical history that presented to the emergency room s/p cardiac arrest and ventricular fibrillation on 07/08/18. Patient was transferred to [facility] on 07/28/18 for AICD placement. Patient returned to [facility] on 07/29/18 s/p AICD placement. 1. Gait instability. Much improved. Patient for home today. Cleared by PT. Continue fall precautions. 2. S/P V-fib arrest. NSTEMI. Nonischemic dilated cardiomyopathy. S/P AICD placement. Continue amiodarone 200mg PO q12. Continue Coreg. No ASA per stator tester. Cardiology recommendations appreciated. 3. S/P acute anoxic encephalopathy. Aphasia resolved. Continue Depakote for seizure prophylaxis, per neurologist, patient to continue this medication. Continue supportive care. Continue physical therapy. 4. Fall. Continue fall precautions. Continue physical therapy. 5. Hepatitis B infection. Patient will need to follow up outpatient with [facility] for further work up and treatment. 6. Drug abuse. Urine drug screen at initial admission positivefor opioids and cannabinoids. Patient counseled on cessation. 7. GI/DVT prophylaxis. Pepcid/Lovenox. 8. Dipso. Discharge planning for home today. Case was discussed in detail with the patient regarding current diagnosis and treatment plan. All questions answered.
[2018-08-15] MEDS: Enoxaparin 40 mg Syringe SC SCH (10:58)
[2018-08-15] MEDS: Valproic Acid 250 mg/5 ml UD Cup PO SCH ×2 (10:58→21:39)
--- NOTE | 2018-08-15 12:27 | PN ---
DATE: 08/15/2018 CARDIOLOGY FOLLOWUP SUBJECTIVE: The patient is ambulating with physical therapy without issues. He is using a walker. PHYSICAL EXAMINATION: VITAL SIGNS: Blood pressure 103/69, heart rates in the 50s. NECK: Negative JVD. HEART: S1, S2. LUNGS: Without rales. EXTREMITIES: Without edema. LABORATORY DATA: Hemoglobin was not drawn today. The glucose was measured to be 100. IMPRESSION: 1. Status post ventricular fibrillation arrest. 2. Status post implantable cardioverter-defibrillator placement. 3. Dilated cardiomyopathy. 4. Nonischemic cardiomyopathy. 5. Anoxic encephalopathy. PLAN: Given these findings, the patient is doing well. We will continue him on his low-dose amiodarone from a cardiac perspective, the patient can be discharged to a intermediate facility. Kelby Guerrero MD
--- NOTE | 2018-08-16 07:26 | CP.PCM.PN ---
<Lizbeth Baldwin - Last Filed: 08/16/18 10:30> Subjective - Date & Time of Evaluation Date of Evaluation: 08/16/18 Time of Evaluation: 07:26 - Subjective Subjective: Lizbeth Baldwin DO, PGY-2: Progress Note for Dr. Carmela Walker Patient was seen and examined at bedside. Patient denies any chest pain, nausea, vomiting, dysuria, or fatigue. We discussed with him the possibility of walking without assistance if PT deemed it safe. Otherwise, no adverse events noted in the interim. Objective - Vital Signs/Intake and Output Vital Signs (last 24 hours): Temp Pulse Resp BP Pulse Ox 98 F 66 18 103/62 97 08/15/18 15:55 08/15/18 18:20 08/15/18 15:55 08/15/18 18:20 08/15/18 15:55 Intake and Output: 08/16/18 08/16/18 06:59 18:59 Intake Total 2080 Output Total 2275 Balance -195 - Medications Medications: Current Medications Amiodarone HCl (Cordarone) 200 mg PO Q12H [facility] Last Admin: 08/15/18 18:19 Dose: 200 mg Artificial Tears (Puralube Opht Oint) 1 appl OU Q4H PRN PRN Reason: Dry eyes Artificial Tears (Refresh Opth Soln) 0.3 ml OU Q4H PRN PRN Reason: Dry eyes Last Admin: 08/05/18 10:39 Dose: 1 drop Carvedilol (Coreg) 6.25 mg PO BID [facility] Last Admin: 08/15/18 18:20 Dose: 6.25 mg Enoxaparin Sodium (Lovenox) 40 mg SC DAILY [facility]; Protocol Last Admin: 08/15/18 10:58 Dose: 40 mg Famotidine (Pepcid) 20 mg PO HS [facility] Last Admin: 08/15/18 21:39 Dose: 20 mg Valproate Sodium (Depakene Oral Soln) 500 mg PO Q12 [facility] Last Admin: 08/15/18 21:39 Dose: 500 mg - Labs Labs: 08/14/18 06:30 08/14/18 12:00 - Constitutional Appears: Well, Non-toxic - Head Exam Head Exam: ATRAUMATIC, NORMOCEPHALIC - Eye Exam Eye Exam: EOMI, Normal appearance - ENT Exam ENT Exam: Mucous Membranes Moist - Neck Exam Neck Exam: Normal Inspection - Respiratory Exam Respiratory Exam: Clear to Ausculation Bilateral, NORMAL BREATHING PATTERN. absent: Accessory Muscle Use - Cardiovascular Exam Cardiovascular Exam: RRR, +S1, +S2 - GI/Abdominal Exam GI & Abdominal Exam: Soft, Normal Bowel Sounds - Extremities Exam Extremities Exam: Normal Inspection. absent: Calf Tenderness - Back Exam Back Exam: NORMAL INSPECTION. absent: CVA tenderness (L), CVA tenderness (R) - Neurological Exam Neurological Exam: Alert, Awake, Oriented x3 - Psychiatric Exam Psychiatric exam: Normal Affect, Normal Mood - Skin Skin Exam: Dry, Intact, Normal Color, Warm Assessment and Plan - Assessment and Plan (Free Text) Assessment: 48 yo M with no known PMH who presented s/p VFib arrest complicated by severe LV systolic dysfunction s/p AICD. S/p encephalopathy secondary to cerebral hypo-perfusion/toxic metabolic encephalopathy. Plan: 1) Hyperkalemia: resolved -K 5.7 , patient asymptomatic, stable vitals -EKG was done and showed no significant changes compared to previous one -kayexalate, insulin, D50 given -repeat lab in pm K was 4.6 2) s/p VFib Arrest/NSTEMI with non ischemic dilated cardiomyopathy -s/p AICD placement -continue coreg, amiodarone as per cardio -outpatient f/u with cardiac powdered sugar supervisor recommended -cardiology following, Dr Guerrero 3) Resolving encephalopathy in the setting of cardiac arrest -patient is awake, alert, communicating in conversation and answering questions -continue Depakote for seizure prophylaxis -outpatient f/u with neurology recommended 4) IVDA -UDS positive for opioids and cannabinoid -counseling provided on cessation 5) Acute Hep B Infection -hepatitis B positive -outpatient f/u recommended at 6) Gait instability - Continue with PT - encourage ambulation to prevent deconditioning 7) PPX: -GI: pepcid -DVT: SCD, lovenox -continue PT -home discharge. 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 social staff worker on board -dysphagia/modified diet -full Code Case reviewed and plan discussed with attending Dr Walker <Carmela Walker - Last Filed: 08/16/18 13:37> Objective - Vital Signs/Intake and Output Vital Signs (last 24 hours): Temp Pulse Resp BP Pulse Ox 97.7 F 60 20 105/72 99 08/16/18 06:00 08/16/18 09:49 08/16/18 06:00 08/16/18 09:49 08/16/18 06:00 Intake and Output: 08/16/18 08/16/18 06:59 18:59 Intake Total 2080 Output Total 2275 Balance -195 - Medications Medications: Current Medications Amiodarone HCl (Cordarone) 200 mg PO Q12H [facility] Last Admin: 08/16/18 07:40 Dose: 200 mg Artificial Tears (Puralube Opht Oint) 1 appl OU Q4H PRN PRN Reason: Dry eyes Artificial Tears (Refresh Opth Soln) 0.3 ml OU Q4H PRN PRN Reason: Dry eyes Last Admin: 08/05/18 10:39 Dose: 1 drop Carvedilol (Coreg) 6.25 mg PO BID [facility] Last Admin: 08/16/18 09:49 Dose: 6.25 mg Enoxaparin Sodium (Lovenox) 40 mg SC DAILY [facility]; Protocol Last Admin: 08/16/18 09:49 Dose: 40 mg Famotidine (Pepcid) 20 mg PO HS [facility] Last Admin: 08/15/18 21:39 Dose: 20 mg Valproate Sodium (Depakene Oral Soln) 500 mg PO Q12 [facility] Last Admin: 08/16/18 09:49 Dose: 500 mg - Labs Labs: 08/14/18 06:30 08/14/18 12:00 Attending/Attestation - Attestation I have personally seen and examined this patient.: Yes I have fully participated in the care of the patient.: Yes I have reviewed all pertinent clinical information, including history, physical exam and plan: Yes Notes (Text): Patient seen and examined by me with resident at approximately 9AM on 08/16/18. Case including HPI, physical exam, and assessment and plan discussed with resident. Agree with above with following additions/corrections. Patient states he is feeling ok. Patient states he has a home but doesn't have his keys. States his keys are in a book bag that is in his aunt's home. His aunt is not answering the phone. No chest pain or shortness of breath. No palpitations. No headaches or dizziness. No fevers or chills. No nausea, vomiting, or abdominal pain. No dysuria. No diarrhea or constipation. Physical exam: General: Awake and alert lying in bed in no acute distress HEENT: Normocephalic, atraumatic. Extraocular muscles intact. Pupils equal and reactive, no scleral icterus. Oropharynx is pink. Neck is supple. Cardiovascular: Normal rhythm. Normal S1 and S2. No murmurs, rubs, or gallops appreciated Pulmonary: Normal respiratory effort. No rhonchi, rales, or wheezing appreciated Gastrointestinal: Soft, nondistended. Nontender. Positive bowel sounds all 4 quadrants. No guarding. Musculoskeletal: Moves all extremities. No calf tenderness. No edema appreciated . Central nervous system: Awake and alert. Follows commands. Aphasia resolved, speaks in full sentences. Dermatologic: Skin warm and dry. AICD felt under skin left anterior upper chest wall. Assessment and plan: Patient is a 48 year old male with unknown past medical history that presented to the emergency room s/p cardiac arrest and ventricular fibrillation on 07/08/18. Patient was transferred to [facility] on 07/28/18 for AICD placement. Patient returned to [facility] on 07/29/18 s/p AICD placement. 1. Gait instability. Walking with walker. Cleared by PT. Continue to try to contact family for discharge. Continue fall precautions. 2. S/P V-fib arrest. NSTEMI. Nonischemic dilated cardiomyopathy. S/P AICD placement. Continue amiodarone 200mg q12. Continue Coreg. No ASA or lisinopril per jar capper. Cardiology recommendations appreciated. 3. S/P acute anoxic encephalopathy. Aphasia resolved. Continue Depakote for seizure prophylaxis. Per neurologist, Dr. Toussaint, patient to continue this medication. Continue supportive care. Continue physical therapy. 4. Hyperkalemia. Resolved. Continue to [facility]. 5. Fall. Continue fall precautions. Continue physical therapy. 6. Hepatitis B infection. Patient will need to follow up outpatient with [facility] for further work up and treatment. 7. Drug abuse. Urine drug screen at initial admission positivefor opioids and cannabinoids. Patient counseled on cessation. 8. GI/DVT prophylaxis. Pepcid/Lovenox. 9. Dipso. Waiting for family for discharge Case was discussed in detail with the patient regarding current diagnosis and treatment plan. All questions answered.
[2018-08-16] MEDS: Enoxaparin 40 mg Syringe SC SCH (09:49)
[2018-08-16] MEDS: Valproic Acid 250 mg/5 ml UD Cup PO SCH ×2 (09:49→21:27)
--- NOTE | 2018-08-16 12:29 | CP.PCM.PN ---
<Cristian Hansen - Last Filed: 08/16/18 12:26> Subjective - Date & Time of Evaluation Date of Evaluation: 08/15/18 Time of Evaluation: 06:20 - Subjective Subjective: Cristian Hansen DO PGY1 Hospitalist Progress Note for Dr Walker Patient seen and examined at bedside. He denies CP, SOB, fever, chills, abdominal pain. He is tolerating diet, ambulating OOB, has regular BM. Objective - Vital Signs/Intake and Output Vital Signs (last 24 hours): Temp Pulse Resp BP Pulse Ox 97.7 F 60 20 105/72 99 08/16/18 06:00 08/16/18 09:49 08/16/18 06:00 08/16/18 09:49 08/16/18 06:00 Intake and Output: 08/16/18 08/16/18 06:59 18:59 Intake Total 2080 Output Total 2275 Balance -195 - Medications Medications: Current Medications Amiodarone HCl (Cordarone) 200 mg PO Q12H [facility] Last Admin: 08/16/18 07:40 Dose: 200 mg Artificial Tears (Puralube Opht Oint) 1 appl OU Q4H PRN PRN Reason: Dry eyes Artificial Tears (Refresh Opth Soln) 0.3 ml OU Q4H PRN PRN Reason: Dry eyes Last Admin: 08/05/18 10:39 Dose: 1 drop Carvedilol (Coreg) 6.25 mg PO BID [facility] Last Admin: 08/16/18 09:49 Dose: 6.25 mg Enoxaparin Sodium (Lovenox) 40 mg SC DAILY [facility]; Protocol Last Admin: 08/16/18 09:49 Dose: 40 mg Famotidine (Pepcid) 20 mg PO HS [facility] Last Admin: 08/15/18 21:39 Dose: 20 mg Valproate Sodium (Depakene Oral Soln) 500 mg PO Q12 [facility] Last Admin: 08/16/18 09:49 Dose: 500 mg - Labs Labs: 08/14/18 06:30 08/14/18 12:00 - Additional Findings Additional findings: - Constitutional Appears: Non-toxic, No Acute Distress - Head Exam Head Exam: ATRAUMATIC, NORMOCEPHALIC - Eye Exam Eye Exam: EOMI, PERRL - ENT Exam ENT Exam: Mucous Membranes Moist - Neck Exam Neck Exam: Full ROM, Normal Inspection - Respiratory Exam Respiratory Exam: Clear to Ausculation Bilateral, NORMAL BREATHING PATTERN. absent: Accessory Muscle Use, Rales, Rhonchi, Wheezes, Respiratory Distress - Cardiovascular Exam Cardiovascular Exam: REGULAR RHYTHM, RRR, +S1, +S2. absent: Gallop, Rubs, Murmur - GI/Abdominal Exam GI & Abdominal Exam: Soft, Normal Bowel Sounds. absent: Guarding, Tenderness - Extremities Exam Extremities Exam: Full ROM. absent: Pedal Edema - Back Exam Back Exam: NORMAL INSPECTION - Neurological Exam Neurological Exam: Alert, Awake, Oriented x3 - Psychiatric Exam Psychiatric exam: Normal Affect, Normal Mood - Skin Skin Exam: Dry, Intact, Warm Assessment and Plan - Assessment and Plan (Free Text) Assessment: 48 yo M with no known PMH who presented s/p VFib arrest complicated by severe LV systolic dysfunction s/p AICD. 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 Patient has been waiting for family members for pick up and delivery driver for the past few days. neonatal social worker on board -dysphagia/modified diet -full Code Case reviewed and plan discussed with attending Dr Aaron Hansen, DO <Carmela Walker R - Last Filed: 08/16/18 12:53> Objective - Vital Signs/Intake and Output Vital Signs (last 24 hours): Temp Pulse Resp BP Pulse Ox 97.7 F 60 20 105/72 99 08/16/18 06:00 08/16/18 09:49 08/16/18 06:00 08/16/18 09:49 08/16/18 06:00 Intake and Output: 08/16/18 08/16/18 06:59 18:59 Intake Total 0 Output Total 7085 Balance -195 - Medications Medications: Current Medications Amiodarone HCl (Cordarone) 200 mg PO Q12H [facility] Last Admin: 08/16/18 07:40 Dose: 200 mg Artificial Tears (Puralube Opht Oint) 1 appl OU Q4H PRN PRN Reason: Dry eyes Artificial Tears (Refresh Opth Soln) 0.3 ml OU Q4H PRN PRN Reason: Dry eyes Last Admin: 08/05/18 10:39 Dose: 1 drop Carvedilol (Coreg) 6.25 mg PO BID [facility] Last Admin: 08/16/18 09:49 Dose: 6.25 mg Enoxaparin Sodium (Lovenox) 40 mg SC DAILY [facility]; Protocol Last Admin: 08/16/18 09:49 Dose: 40 mg Famotidine (Pepcid) 20 mg PO HS [facility] Last Admin: 08/15/18 21:39 Dose: 20 mg Valproate Sodium (Depakene Oral Soln) 500 mg PO Q12 [facility] Last Admin: 08/16/18 09:49 Dose: 500 mg - Labs Labs: 08/14/18 06:30 08/14/18 12:00 Attending/Attestation - Attestation I have personally seen and examined this patient.: Yes I have fully participated in the care of the patient.: Yes I have reviewed all pertinent clinical information, including history, physical exam and plan: Yes Notes (Text): Please note that this note is for 08/15/18. Patient seen and examined by me with resident at approximately 10:15AM on 08/15/18. Case including HPI, physical exam, and assessment and plan discussed with resident. Agree with above with following additions/corrections. Patient states he is feels upset. Patient wants to go home and his family me mbers are not answering the phone. He denies chest pain or shortness of breath. No palpitations. No headaches or dizziness. No fevers or chills. No nausea, vomiting, or abdominal pain. No dysuria. Patient is having bowel movements. Physical exam: General: Awake and alert lying in bed in no acute distress HEENT: Normocephalic, atraumatic. Extraocular muscles intact. Pupils equal and reactive, no scleral icterus. Oropharynx is pink. Neck is supple. Cardiovascular: Normal rhythm. Normal S1 and S2. No murmurs, rubs, or gallops appreciated Pulmonary: Normal respiratory effort. No rhonchi, rales, or wheezing appreciated Gastrointestinal: Soft, nondistended. Nontender. Positive bowel sounds all 4 quadrants. No guarding. Musculoskeletal: Moves all extremities. No calf tenderness. No edema appre ciated. Central nervous system: Awake and alert. Follows commands. Aphasia resolved, speaks in full sentences. Dermatologic: Skin warm and dry. AICD felt under skin left anterior upper chest wall. Assessment and plan: Patient is a 48 year old male with unknown past medical history that presented to the emergency room s/p cardiac arrest and ventricular fibrillation on 07/08/18. Patient was transferred to [facility] on 07/28/18 for AICD placement. Patient returned to [facility] on 07/29/18 s/p AICD placement. 1. Gait instability. Much improved. Cleared by PT. Will continue to try to contact family for discharge. Continue fall precautions. 2. S/P V-fib arrest. NSTEMI. Nonischemic dilated cardiomyopathy. S/P AICD placement. Continue amiodarone 200mg q12. Continue Coreg. No ASA or lisinopril per ornamental rail installer. Cardiology recommendations appreciated. 3. S/P acute anoxic encephalopathy. Aphasia resolved. Continue Depakote for seizure prophylaxis, per neurologist, patient to continue this medication. Continue supportive care. Continue physical therapy. 4. Fall. Continue fall precautions. Continue physical therapy. 5. Hepatitis B infection. Patient will need to follow up outpatient with [facility] for further work up and treatment. 6. Drug abuse. Urine drug screen at initial admission positivefor opioids and cannabinoids. Patient counseled on cessation. 7. GI/DVT prophylaxis. Pepcid/Lovenox. 8. Dipso. Waiting for family for discharge Case was discussed in detail with the patient regarding current diagnosis and treatment plan. All questions answered.
[2018-08-17 08:08] LABS: BASO # 0.03 K/mm3 (0.0-2.0); BASO % 0.4 % (0.0-3.0); EOS # 0.2 (0.0-0.7); EOS % 2.7 % (1.5-5.0); HEMOGLOBIN 11.4 g/dL (14.0-18.0); LYMPH # 1.8 (1.2-3.4); LYMPH % 23.7 % (22.0-35.0); MEAN CELL VOLUME 101.4 fl (80.0-105.0); MEAN CORPUSCULAR HEMOGLOBIN 31.9 pg (25.0-35.0); MEAN CORPUSCULAR HGB CONC 31.5 g/dl (31.0-37.0); MEAN PLATELET VOLUME 10.4 fl (7.0-11.0); MONO # 1.3 (0.1-0.6); MONO % 17.3 % (1.0-6.0); RBC 3.57 10^6/uL (3.5-6.1); RED CELL DISTRIBUTION WIDTH 13.7 % (11.5-14.5); WHITE BLOOD COUNT 7.7 10^3/uL (4.5-11.0)
[2018-08-17 08:32] LABS: ALB/GLOB RATIO 1.2 (1.1-1.8); ALBUMIN 3.7 g/dL (3.0-4.8); ALT/SGPT 39 U/L (7-56); AST/SGOT 38 U/L (17-59); BLOOD UREA NITROGEN 21 mg/dL (7-21); CALCIUM 9.3 mg/dL (8.4-10.5); GFR NON-AFRICAN AMERICAN > 60
[2018-08-17] MEDS: Valproic Acid 250 mg/5 ml UD Cup PO SCH ×2 (10:24→22:09)
[2018-08-17] MEDS: Enoxaparin 40 mg Syringe SC SCH (10:25)
--- NOTE | 2018-08-17 12:01 | CP.PCM.PN ---
<Anamika Riggins - Last Filed: 08/17/18 12:08> Subjective - Date & Time of Evaluation Date of Evaluation: 08/17/18 Time of Evaluation: 09:00 - Subjective Subjective: Anamika Riggins Y1 Hospital Progress Note Patient seen and examined at bedside this morning. No acute events reported overnight. Patient sitting comfortably and is tolerating diet without complaints. Patient denies any complaints at this time including CP, SOB, f gayatri, nausea, vomiting, abdominal pain and urinary complaints. Patient states aunt has not visited him in one week. Continuing to wait for placement. Objective - Vital Signs/Intake and Output Vital Signs (last 24 hours): Temp Pulse Resp BP Pulse Ox 97.9 F 71 18 168/62 H 98 08/17/18 06:00 08/17/18 06:57 08/17/18 06:00 08/17/18 06:57 08/17/18 06:00 Intake and Output: 08/17/18 08/17/18 06:59 18:59 Intake Total 1100 Output Total 300 950 Balance 800 -950 - Medications Medications: Current Medications Amiodarone HCl (Cordarone) 200 mg PO Q12H [facility] Last Admin: 08/17/18 06:57 Dose: 200 mg Artificial Tears (Puralube Opht Oint) 1 appl OU Q4H PRN PRN Reason: Dry eyes Artificial Tears (Refresh Opth Soln) 0.3 ml OU Q4H PRN PRN Reason: Dry eyes Last Admin: 08/05/18 10:39 Dose: 1 drop Carvedilol (Coreg) 6.25 mg PO BID [facility] Last Admin: 08/17/18 10:24 Dose: 6.25 mg Enoxaparin Sodium (Lovenox) 40 mg SC DAILY [facility]; Protocol Last Admin: 08/17/18 10:25 Dose: 40 mg Famotidine (Pepcid) 20 mg PO HS [facility] Last Admin: 08/16/18 21:28 Dose: 20 mg Valproate Sodium (Depakene Oral Soln) 500 mg PO Q12 [facility] Last Admin: 08/17/18 10:24 Dose: 500 mg - Labs Labs: 08/17/18 07:00 08/17/18 07:00 - Constitutional Appears: Well, Non-toxic - Head Exam Head Exam: ATRAUMATIC, NORMOCEPHALIC - Eye Exam Eye Exam: EOMI, Normal appearance - ENT Exam ENT Exam: Mucous Membranes Moist - Neck Exam Neck Exam: Normal Inspection - Respiratory Exam Respiratory Exam: Clear to Ausculation Bilateral, NORMAL BREATHING PATTERN. absent: Accessory Muscle Use - Cardiovascular Exam Cardiovascular Exam: RRR, +S1, +S2 absent: tacchycardia - GI/Abdominal Exam GI & Abdominal Exam: Soft, Normal Bowel Sounds - Extremities Exam Extremities Exam: Normal Inspection. CP +2 B/L absent: Calf Tenderness - Back Exam Back Exam: NORMAL INSPECTION. absent: CVA tenderness (L), CVA tenderness (R) - Neurological Exam Neurological Exam: Alert, Awake, Oriented x3, CN II-XII intact - Skin Skin Exam: Dry, Intact, Normal Color, Warm Assessment and Plan - Assessment and Plan (Free Text) Assessment: 48 yo M with no known PMH who presented s/p VFib arrest complicated by severe LV systolic dysfunction s/p AICD. S/p encephalopathy secondary to cerebral hypo- perfusion/toxic metabolic encephalopathy. Currently awaiting patient placement - attempting to contact family for discharge. Plan: Deconditioning/gait instability -Continue with PT - recommend home with services -encourage OOB and ambulation as tolerated -fall precautions -working with SW and patient's family for discharge placement - attempting to contact family for discharge Hyperkalemia -K is 5.3 from 4.6 -given mayela randolph monitor -previous EKG was done and showed no significant t wave or NV changes Non ischemic dilated cardiomyopathy -S/p NSTEMIA and Vfib arrest -s/p AICD placement -continue coreg 6.25mg BID -continue amiodarone 200mg q12 -cardiology on consult -outpatient followup with cardiac advertising manager recommended S/p acute anoxic encephalopathy - improving -patient is AOx3, following commands. Aphasia resolved -continue Depakote for seizure prophylaxis -outpatient f/u with neurology recommended Acute Hep B Infection -hepatitis B positive -outpatient f/u recommended at [facility], patient verbally agrees Hx of Drug abuse -UDS positive for opioids and cannabinoid -counseling provided on drug cessation PPX -GI - pepcid -DVT - lovenox -dysphagia/modified diet Patient seen and case discussed with attending, Dr. Garcia <Brayden Garcia - Last Filed: 08/17/18 15:16> Objective - Vital Signs/Intake and Output Vital Signs (last 24 hours): Temp Pulse Resp BP Pulse Ox 97.9 F 71 18 168/62 H 98 08/17/18 06:00 08/17/18 06:57 08/17/18 06:00 08/17/18 06:57 08/17/18 06:00 Intake and Output: 08/17/18 08/17/18 06:59 18:59 Intake Total 1100 Output Total 300 950 Balance 800 -950 - Medications Medications: Current Medications Amiodarone HCl (Cordarone) 200 mg PO Q12H [facility] Last Admin: 08/17/18 06:57 Dose: 200 mg Artificial Tears (Puralube Opht Oint) 1 appl OU Q4H PRN PRN Reason: Dry eyes Artificial Tears (Refresh Opth Soln) 0.3 ml OU Q4H PRN PRN Reason: Dry eyes Last Admin: 08/05/18 10:39 Dose: 1 drop Carvedilol (Coreg) 6.25 mg PO BID [facility] Last Admin: 08/17/18 10:24 Dose: 6.25 mg Enoxaparin Sodium (Lovenox) 40 mg SC DAILY [facility]; Protocol Last Admin: 08/17/18 10:25 Dose: 40 mg Famotidine (Pepcid) 20 mg PO HS [facility] Last Admin: 08/16/18 21:28 Dose: 20 mg Valproate Sodium (Depakene Oral Soln) 500 mg PO Q12 [facility] Last Admin: 08/17/18 10:24 Dose: 500 mg - Labs Labs: 08/17/18 07:00 08/17/18 07:00 Attending/Attestation - Attestation I have personally seen and examined this patient.: Yes I have fully participated in the care of the patient.: Yes I have reviewed all pertinent clinical information, including history, physical exam and plan: Yes Notes (Text): 08/17/18 15:14 Attending note ; Patient seen and examined with resident . Patient is alert and awake . Denies any chest pain, shortness of breath . Denies any weakness . Wants to go home . Patient is a 48 year old male with unknown past medical history that presented to the emergency room s/p cardiac arrest and ventricular fibrillation on 07/08/18. Patient was transferred to [facility] on 07/28/18 for AICD placement. Patient returned to [facility] on 07/29/18 s/p AICD placement. 1. Gait instability. Much improved. Cleared by PT. Patient is ready for discharge . Prescription for walker given . Visiting nurses services arranged . Currently no family to picker machine operator the patient . We will follow-up with social service manager . Continue fall precautions. 2. S/P V-fib arrest. NSTEMI. Nonischemic dilated cardiomyopathy. S/P AICD placement. Continue amiodarone 200mg q12. Continue Coreg. Cardiology recommendations appreciated. 3. S/P acute anoxic encephalopathy. Aphasia resolved. Continue Depakote for seizure prophylaxis.Continue supportive care. Continue physical therapy. 4. Fall. Continue fall precautions. Continue physical therapy. 5. Hepatitis B infection. Patient will need to follow up outpatient with [facility] for further work up and treatment. 6. Drug abuse. UDS was positivefor opioids and cannabinoids. Patient counseled on cessation. 7. GI/DVT prophylaxis. Pepcid/Lovenox. We will follow-up with social service manager for discharge planning.
[2018-08-18 08:47] LABS: BLOOD UREA NITROGEN 22 mg/dL (7-21); CALCIUM 9.3 mg/dL (8.4-10.5); GFR NON-AFRICAN AMERICAN > 60
--- NOTE | 2018-08-18 10:09 | CP.PCM.PN ---
<Cristian Hansen - Last Filed: 08/18/18 12:50> Subjective - Date & Time of Evaluation Date of Evaluation: 08/18/18 Time of Evaluation: 07:40 - Subjective Subjective: Cristian Hnasen DO PGY1 Hospitalist Progress Note for Dr Garcia Patient seen and examined at bedside. Patient reports no symptoms today. He is tolerating his diet with regular BM, normal speech, intact mentation. No acute events overnight. Objective - Vital Signs/Intake and Output Vital Signs (last 24 hours): Temp Pulse Resp BP Pulse Ox 97.9 F 60 20 102/62 96 08/18/18 06:00 08/18/18 06:04 08/18/18 06:00 08/18/18 06:04 08/18/18 06:00 Intake and Output: 08/18/18 08/18/18 06:59 18:59 Intake Total 2700 Output Total 2100 Balance 600 - Medications Medications: Current Medications Amiodarone HCl (Cordarone) 200 mg PO Q12H [facility] Last Admin: 08/18/18 06:04 Dose: 200 mg Artificial Tears (Puralube Opht Oint) 1 appl OU Q4H PRN PRN Reason: Dry eyes Artificial Tears (Refresh Opth Soln) 0.3 ml OU Q4H PRN PRN Reason: Dry eyes Last Admin: 08/05/18 10:39 Dose: 1 drop Carvedilol (Coreg) 6.25 mg PO BID [facility] Last Admin: 08/17/18 17:40 Dose: 6.25 mg Enoxaparin Sodium (Lovenox) 40 mg SC DAILY [facility]; Protocol Last Admin: 08/17/18 10:25 Dose: 40 mg Famotidine (Pepcid) 20 mg PO HS [facility] Last Admin: 08/17/18 22:10 Dose: 20 mg Valproate Sodium (Depakene Oral Soln) 500 mg PO Q12 [facility] Last Admin: 08/17/18 22:09 Dose: 500 mg - Labs Labs: 08/17/18 07:00 08/18/18 08:20 - Constitutional Appears: Well, Non-toxic - Head Exam Head Exam: ATRAUMATIC, NORMAL INSPECTION, NORMOCEPHALIC - Eye Exam Eye Exam: EOMI, Normal appearance, PERRL Pupil Exam: NORMAL ACCOMODATION, PERRL - ENT Exam ENT Exam: Mucous Membranes Moist, Normal Exam - Neck Exam Neck Exam: Full ROM, Normal Inspection. absent: Lymphadenopathy - Respiratory Exam Respiratory Exam: Clear to Ausculation Bilateral, NORMAL BREATHING PATTERN - Cardiovascular Exam Cardiovascular Exam: REGULAR RHYTHM, +S1, +S2. absent: Murmur - GI/Abdominal Exam GI & Abdominal Exam: Soft, Normal Bowel Sounds. absent: Tenderness - Extremities Exam Extremities Exam: Full ROM, Normal Capillary Refill, Normal Inspection. absent: Joint Swelling, Pedal Edema - Back Exam Back Exam: NORMAL INSPECTION - Neurological Exam Neurological Exam: Alert, Awake, CN II-XII Intact, Oriented x3 - Psychiatric Exam Psychiatric exam: Normal Affect, Normal Mood - Skin Skin Exam: Dry, Intact, Normal Color, Warm Assessment and Plan - Assessment and Plan (Free Text) Assessment: 48 yo M with no known PMH who presented s/p VFib arrest complicated by severe LV systolic dysfunction s/p AICD. s/p resolved encephalopathy Plan: Gait instability: -significantly improving with PT -PT recommended d/c home with services -walker prescribed s/p VFib Arrest/NSTEMI with non ischemic dilated cardiomyopathy s/p AICD placement -continue coreg, amiodarone as per cardio -outpatient f/u with cardiac block press operator recommended -cardiology following, Dr Guerrero Resolved encephalopathy -normal speech, awake , alert -continue Depakote for seizure prophylaxis -outpatient f/u with neurology recommended IVDA -UDS was positive for opioids and cannabinoid on admission -counseling provided on cessation Hep B Infection -hepatitis B positive -outpatient f/u recommended at PPX: -GI: pepcid -DVT: SCD, lovenox -continue PT -home discharge. Patient has been waiting for family members for citrus picker for the past few days. Patient agreed to be d/c to a friend's house. Needs some clothings. line assembly utility worker on board -dysphagia/modified diet -full Code Case reviewed and plan discussed with attending Dr Radha Hansen, <Brayden Garcia - Last Filed: 08/18/18 14:05> Objective - Vital Signs/Intake and Output Vital Signs (last 24 hours): Temp Pulse Resp BP Pulse Ox 97.9 F 60 20 102/62 96 08/18/18 06:00 08/18/18 11:02 08/18/18 06:00 08/18/18 11:02 08/18/18 06:00 Intake and Output: 08/18/18 08/18/18 06:59 18:59 Intake Total 2700 Output Total 2100 Balance 600 - Medications Medications: Current Medications Amiodarone HCl (Cordarone) 200 mg PO Q12H [facility] Last Admin: 08/18/18 06:04 Dose: 200 mg Artificial Tears (Puralube Opht Oint) 1 appl OU Q4H PRN PRN Reason: Dry eyes Artificial Tears (Refresh Opth Soln) 0.3 ml OU Q4H PRN PRN Reason: Dry eyes Last Admin: 08/05/18 10:39 Dose: 1 drop Carvedilol (Coreg) 6.25 mg PO BID [facility] Last Admin: 08/18/18 11:02 Dose: 6.25 mg Enoxaparin Sodium (Lovenox) 40 mg SC DAILY [facility]; Protocol Last Admin: 08/18/18 11:03 Dose: 40 mg Famotidine (Pepcid) 20 mg PO HS [facility] Last Admin: 08/17/18 22:10 Dose: 20 mg Valproate Sodium (Depakene Oral Soln) 500 mg PO Q12 [facility] Last Admin: 08/18/18 11:02 Dose: 500 mg - Labs Labs: 08/17/18 07:00 08/18/18 08:20 Attending/Attestation - Attestation I have personally seen and examined this patient.: Yes I have fully participated in the care of the patient.: Yes I have reviewed all pertinent clinical information, including history, physical exam and plan: Yes Notes (Text): 08/18/18 14:05 Attending note ; Patient seen and examined with resident . Patient is alert and awake. Denies any chest pain, shortness of breath . Denies any weakness . Wants to go home. Patient is a 48 year old male with unknown past medical history that presented to the emergency room s/p cardiac arrest and ventricular fibrillation on . Patient was transferred to [facility] on 07/28/18 for AICD placement. Patient returned to [facility] on 07/29/18 s/p AICD placement. 1. Gait instability. Much improved. Cleared by PT. Patient is ready for discharge . Prescription for walker given . Visiting nurses services arranged. Currently no family to citrus picker the patient . We will follow-up with social work msw . Continue fall precautions. 2. S/P V-fib arrest. NSTEMI. Nonischemic dilated cardiomyopathy. S/P AICD meena cement. Continue amiodarone 200mg q12. Continue Coreg. Cardiology recommendations appreciated. 3. S/P acute anoxic encephalopathy. Aphasia resolved. Continue Depakote for seizure prophylaxis.Continue supportive care. Continue physical therapy. 4. Fall. Continue fall precautions. Continue physical therapy. 5. Hepatitis B infection. Patient will need to follow up outpatient with [facility] for further work up and treatment. 6. Drug abuse. UDS was positivefor opioids and cannabinoids. Patient counseled on cessation. 7. GI/DVT prophylaxis. Pepcid/Lovenox. We will follow-up with social work msw for discharge planning.
[2018-08-18] MEDS: Valproic Acid 250 mg/5 ml UD Cup PO SCH ×2 (11:02→21:15)
[2018-08-18] MEDS: Enoxaparin 40 mg Syringe SC SCH (11:03)
[2018-08-18 16:03] VITALS: RESP 18
[2018-08-19 05:51] VITALS: PULSE 62
[2018-08-19 06:22] VITALS: BP 109/68; TEMP 98.1; O2SAT 96
[2018-08-19] MEDS: Valproic Acid 250 mg/5 ml UD Cup PO SCH (11:02)
[2018-08-19] MEDS: Enoxaparin 40 mg Syringe SC SCH (11:02)
--- NOTE | 2018-08-19 13:31 | PN ---
DATE: 08/19/2018 SUBJECTIVE: The patient remains in the hospital without complaints working with physical therapy. PHYSICAL EXAMINATION: VITAL SIGNS: Blood pressure 109/68, heart rates in the 60s. NECK: Negative JVD. LUNGS: Without rales. HEART: S1, S2. EXTREMITIES: Without edema. LABORATORY DATA: Potassium is yesterday of 5.3, hemoglobin 11.4. IMPRESSION: 1. Status post ventricular fibrillation arrest. 2. Dilated cardiomyopathy. 3. Anoxic encephalopathy. 4. Normal coronary arteries. Given these findings, the patient's SYLWIA inhibitor was stopped due to the patient's potassium. The patient is status post ICD placement, would continue with the low dose amiodarone as well as his Coreg. Kelby Guerrero MD
--- NOTE | 2018-08-19 15:54 | CP.PCM.DIS ---
Provider - Provider Date of Admission: 07/29/18 18:25 Attending physician: Brayden Garcia MD Primary care physician: Wali Scott MD Consults: 07/29/18 19:23 Physician Consult Routine Comment: Consulting Provider: Kelby Guerrero Consulting Physician: Kelby Guerrero Reason for Consult: severe non-ischemic cardiomyopathy w/ reduced EF s/p AICD 07/29/18 19:53 Social Work Referral Routine Comment: [place] risk assessment score. Physician Instructions: Reason For Exam: Protocol 07/30/18 06:11 Nursing Referral for Wound Care Routine Comment: stage II in between buttocks. Physician Instructions: Reason For Exam: protocol 08/11/18 09:01 Nursing Referral for Wound Care Routine Comment: Physician Instructions: Reason For Exam: stage 2 gluteal fold Time Spent in preparation of Discharge (in minutes): 45 Hospital Course - Lab Results Lab Results: Most Recent Lab Values WBC 7.7 10^3/uL (4.5-11.0) 08/17/18 07:00 RBC 3.57 10^6/uL (3.5-6.1) 08/17/18 07:00 Hgb 11.4 g/dL (14.0-18.0) L 08/17/18 07:00 Hct 36.2 % (42.0-52.0) L 08/17/18 07:00 MCV 101.4 fl (80.0-105.0) 08/17/18 07:00 MCH 31.9 pg (25.0-35.0) 08/17/18 07:00 MCHC 31.5 g/dl (31.0-37.0) 08/17/18 07:00 RDW 13.7 % (11.5-14.5) 08/17/18 07:00 Plt Count 139 10^3/uL (120.0-450.0) 08/17/18 07:00 MPV 10.4 fl (7.0-11.0) 08/17/18 07:00 Neut % (Auto) 55.9 % (50.0-68.0) 08/17/18 07:00 Lymph % (Auto) 23.7 % (22.0-35.0) 08/17/18 07:00 Stephens % (Auto) 17.3 % (1.0-6.0) H 08/17/18 07:00 Eos % (Auto) 2.7 % (1.5-5.0) 08/17/18 07:00 Baso % (Auto) 0.4 % (0.0-3.0) 08/17/18 07:00 Lymph # (Auto) 1.8 (1.2-3.4) 08/17/18 07:00 Stephens # (Auto) 1.3 (0.1-0.6) H 08/17/18 07:00 Eos # (Auto) 0.2 (0.0-0.7) 08/17/18 07:00 Baso # (Auto) 0.03 K/mm3 (0.0-2.0) 08/17/18 07:00 Absolute Neuts (auto) 4.28 (1.4-6.5) 08/17/18 07:00 Sodium 140 mmol/L (132-148) 08/18/18 08:20 Potassium 5.3 mmol/L (3.6-5.0) H 08/18/18 08:20 Chloride 100 mmol/L (98-107) 08/18/18 08:20 Carbon Dioxide 33 mmol/L (21-33) 08/18/18 08:20 Anion Gap 13 (10-20) 08/18/18 08:20 BUN 22 mg/dL (7-21) H 08/18/18 08:20 Creatinine 1.0 mg/dl (0.8-1.5) 08/18/18 08:20 Est GFR ( Amer) > 60 08/18/18 08:20 Est GFR (Non-Af Amer) > 60 08/18/18 08:20 POC Glucose (mg/dL) 100 mg/dL (65-110) 08/14/18 12:54 Random Glucose 109 mg/dL (70-110) 08/18/18 08:20 Calcium 9.3 mg/dL (8.4-10.5) 08/18/18 08:20 Phosphorus 4.0 mg/dL (2.5-4.5) 07/30/18 06:20 Magnesium 2.1 mg/dL (1.7-2.2) 08/17/18 07:00 Total Bilirubin 0.4 mg/dL (0.2-1.3) 08/17/18 07:00 AST 38 U/L (17-59) 08/17/18 07:00 ALT 39 U/L (7-56) 08/17/18 07:00 Alkaline Phosphatase 66 U/L (38-126) 08/17/18 07:00 Total Protein 6.8 g/dL (5.8-8.3) 08/17/18 07:00 Albumin 3.7 g/dL (3.0-4.8) 08/17/18 07:00 Globulin 3.1 gm/dL 08/17/18 07:00 Albumin/Globulin Ratio 1.2 (1.1-1.8) 08/17/18 07:00 - Hospital Course Hospital Course: 48 year old male with unknown PMH that was initially admitted for VFIB cardiac arrest and s/p ROSC with subsequent targeted temperature management. He was dilated non obstructive cardiomyopathy with EF of 25-30% went to at [facility] for AICD placement then came back to [facility] for further medical management. Patient was followed by cariologist Dr Guerrero who recommended carvedilol 12.5mg, lisinopril 5mg and amiodarone 200mg. Patient was followed by PT with daily progression in physical activity. His mental status continued to improve overtime during hospital stay. Patient has Hepatitis B infection and was recommeded to follow up with hepatology outpatient clinic at [facility]. On discharge, cardiology recommended to continue on coreg and amiodarone given VFIB diagnosis. Patient was followed by neurology who recommended to continue valproic acid for seizure prophylaxis. Today, patient is hemodynamically stable, afebrile, physical activity and mental status significantly improved. He ambulates with walker with steady gait. He is clinically stable for discharge home today with a walker and a visiting nurse set for home care services. Additional discharge instructions as below. Discharge Exam - Head Exam Head Exam: ATRAUMATIC, NORMAL INSPECTION, NORMOCEPHALIC - Additional Findings Additional findings: - Head Exam Head Exam: ATRAUMATIC, NORMOCEPHALIC - Eye Exam Eye Exam: EOMI, Normal appearance - ENT Exam ENT Exam: Normal Exam - Neck Exam Neck exam: Normal Inspection - Respiratory Exam Respiratory Exam: Clear to PA & Lateral, NORMAL BREATHING PATTERN - Cardiovascular Exam Cardiovascular Exam: REGULAR RHYTHM, +S1, +S2 - GI/Abdominal Exam GI & Abdominal Exam: Normal Bowel Sounds, Soft - Extremities Exam Extremities exam: normal capillary refill, pedal pulses present - Back Exam Back exam: FULL ROM - Neurological Exam Neurological exam: Alert, CN II-XII Intact, Oriented x3. ambulating with walker, steady gait - Psychiatric Exam Psychiatric exam: Normal Affect, Normal Mood - Skin Skin Exam: Dry, Intact, Normal Color, Warm Discharge Plan - Discharge Medications Prescriptions: Amiodarone [Cordarone] 200 mg PO BID #60 tab Carvedilol [Coreg] 6.25 mg PO BID 30 Days #60 tab Valproic Acid (As Sodium Salt) [Valproic Acid] 500 mg PO BID #28 solution - Follow Up Plan Condition: GOOD Disposition: HOME/ ROUTINE Instructions: Sudden Cardiac Arrest Additional Instructions: Please follow up with your primary care doctor within one week. You may also follow up with Dr. Montemayor at the [facility] located in the [facility] for an appointment scheduled for August 28, 2018 at 2:30 pm to establish care with primary care doctor and for post hospital follow up. You also need to follow up with an child nutrition manager within one week, the name of the one you were seen by has been provided. You will need close monitoring secondary to the defibrillator that was placed. Please follow up with a case operator within one week, the name of the one you were seen by has been provided. Please follow up at [facility] in [place], [place] for hepatitis B positive Take the medications as prescribed. We have given you a month supply of medications, please follow up with your primary care doctor or Dr. Montemayor at the [facility] to get refills. Please continue valproic acid (prescription provided), please discuss with your neurologist Dr. Toussaint, your primary care doctor, or Dr. Montemayor at the [facility] about the need for continued use of this medication. Please abstain from drugs. Please return to the emergency room if symptoms return of you experience new concerning symptoms. Referrals: [facility] at [facility] [Outside] Wali Scott MD [Primary Care Provider] - Michael Neff MD [Medical Doctor] - James Toussaint MD [Staff Provider] - Kelby Guerrero MD [Staff Provider] -
== END 2018-08-19 18:44 | disposition home health service (06) | DRG 205 ==
LOC: 2RNO 18:25 → 3RNO 07-30 23:38
PROVIDERS: ADMIT Hospitalist; ATTEND Internal Medicine
PROC: 5A09357 Assistance with Respiratory Ventilation, Less than 24 Consecutive Hours, Continuous Positive Airway Pressure (ICD-10-PCS; principal; 2018-07-29)
PROC: 5A09357 Assistance with Respiratory Ventilation, Less than 24 Consecutive Hours, Continuous Positive Airway Pressure (ICD-10-PCS; 2018-08-12)
DX: I42.0 Dilated cardiomyopathy (principal); I21.4 Non-ST elevation (NSTEMI) myocardial infarction; I49.01 Ventricular fibrillation; G93.41 Metabolic encephalopathy; L89.302 Pressure ulcer of unspecified buttock, stage 2; G93.1 Anoxic brain damage, not elsewhere classified; I95.9 Hypotension, unspecified; E87.5 Hyperkalemia; B16.9 Acute hepatitis B without delta-agent and without hepatic coma; R47.01 Aphasia; R26.2 Difficulty in walking, not elsewhere classified; D64.9 Anemia, unspecified; F11.10 Opioid abuse, uncomplicated; F12.10 Cannabis abuse, uncomplicated; M25.552 Pain in left hip; G89.11 Acute pain due to trauma; W19.XXXA Unspecified fall, initial encounter; Z95.810 Presence of automatic (implantable) cardiac defibrillator; Z75.1 Person awaiting admission to adequate facility elsewhere; Z86.74 Personal history of sudden cardiac arrest